=== PATIENT | male | born 1940 | race Caucasian/White ===

== ENCOUNTER 2020-04-25 06:55 | Outpatient (REF) | payer MEDICARE, OTHER, SELFPAY | END 2020-04-25 06:56 | disposition home or self-care (01) | LOC: HO.LAB 06:55 | PROVIDERS: PCP Internal Medicine Medical Oncology; Visit Provider Internal Medicine | DX: Z20.828 Contact with and (suspected) exposure to other viral communicable diseases (principal) | CPT/HCPCS: 87635 ==

== ENCOUNTER → 2020-05-09 08:11 | Outpatient (REF) | payer MEDICARE, OTHER, SELFPAY ==
--- NOTE | 2020-05-09 08:30 | CA_ITS ---
Transthoracic Echocardiogram Patient (Last, First, Middle): Efrain Pedro, Gender: Male Date of : 1940 Age: 80 Procedure Date: 05/09/2020 Procedure Type: Transthoracic Echocardiogram Location: OP Height: 193.04 cm Weight: 102.06 kg BSA: 2.33 m2 Heart Rate: bpm BP: 128 / 72 mmHg Burn Table Operator: SAMUEL Referring MD: Jhonathan Gama MD Symptoms: I25.10 CAD, I71.2 AAA, I10 HTN Study Quality: Fair ECG Rhythm: Sinus Conclusions: - The left ventricular systolic function is normal. The visually estimated ejection fraction is between 60-65%. There is no evidence of regional wall motion abnormalities. - No obvious valvular pathology seen on this study. - There is mild dilatation of the ascending aorta measuring 4.10 cm. Findings Left Ventricle Normal left ventricular cavity size. There is mildly increased left ventricular wall thickness. The left ventricular systolic function is normal. The visually estimated ejection fraction is between 60-65%. There is no evidence of regional wall motion abnormalities. E/E prime ratio is between 8 and 15 consistent with indeterminate filling pressures. Evidence suggests grade I (mild) diastolic dysfunction. Right Ventricle Normal right ventricular cavity size and systolic function. Atria The left atrium is normal in size. The right atrium is normal in size. Aortic Valve There is a normal trileaflet aortic valve. There is no aortic valve stenosis. There is no aortic valve regurgitation. Mitral Valve The mitral valve appears normal. There is trace mitral valve regurgitation. There is no mitral valve stenosis. Pulmonic Valve The pulmonic valve was not well visualized. Tricuspid Valve Normal tricuspid valve structure. There is trace tricuspid valve regurgitation. The pulmonary artery systolic pressure is normal. Great Vessels There is mild dilatation of the ascending aorta measuring 4.10 cm. Venous The inferior vena cava is normal in size and collapses greater than 50% with inspiration. Pericardium/Pleural There is no evidence of pericardial effusion. Prior Study Comparison Changes noted compared to prior study dated: 12/16/2016. Aorta not well visualized in prior study. Recommendations, Care & Conclusions No obvious valvular pathology seen on this study. Measurements 2D Linear Measurements IVSd: 1.12 0.6-0.9/0.6-1.0 cm LVIDd: 4.10 3.9-5.3/4.2-5.9 cm LVIDd Index: 1.76 2.4-3.2/2.2-3.1 cm/m2 LVIDs: 2.64 2.0-3.6 cm LVPWd: 1.06 0.7-1.1 cm Ao Root: 4.20 2.1-3.5 cm LA Diam: 3.30 2.7-3.8/3.0-4.0 cm LAIDs Index: 1.42 1.5-2.3 cm/m2 LV Mass: 185.90 67-162/88-224 g LV Mass Index: 79.79 43-95/49-115 g/m2 LVOT Diam: 2.50 3.0+(-)1.3 cm 2D Systolic Function EF 4C: 71.20 >55% EF 2C: 59.60 >55% EF BiP: 64.80 >55% Mitral Valve MV Pk E: 0.65 MV PK A: 0.97 MV Decel Time: 222.00 E/A: 0.70 E'Lateral: 6.19 E'Medial: 4.45 E/E' Med: 14.50 E/E' Lat: 10.40 PHT: 65.00 MVA PHT: 3.38 Decel [place]: 2.91 Aortic Valve AoV Pk Blu: 1.10 AoV Mn Blu: 0.77 AoV VTI: 0.27 AoV Pk Grad: 5.00 Aov Mn Grad: 3.00 PETTY Cont.VTI: 2.99 LVOT LVOT Pk Blu: 0.59 LVOT Mn Blu: 0.35 LVOT VTI: 0.16 LVOT Pk Grad: 1.00 LVOT Mn Grad: 1.00 LVOT Diam: 2.50 LVOT Area: 4.91 Diastolic Function MV Pk E: 0.65 MV Pk A: 0.97 E/A: 0.70 E'Medial: 4.45 E/E' Med: 14.50 E' Laterial: 6.19 E/E' Lat: 10.40 Tricuspid Valve TR Pk Blu: 1.71 TR Pk Grad: 12.00 RA Press: 3.00 RVSP: 15.00 Great Vessels Aorta Ao Root-2D: 4.20 2.0-3.7 cm Ao Asc: 4.10 2.1-3.4 cm Pulmonary Valve PV Pk Blu: 0.84 Peak PV Grad: 3.00 Updated in Other Vendor System with Status of Final Marv Barrera MD electronically signed on 05/10/2020 9:39:14 AM with status of Final
== END ==
LOC: HO.CARD 08:11
PROVIDERS: PCP Internal Medicine Medical Oncology; Visit Provider Internal Medicine Cardiovascular Disease
DX: I25.10 Atherosclerotic heart disease of native coronary artery without angina pectoris (principal); I71.2 Thoracic aortic aneurysm, without rupture; I10 Essential (primary) hypertension
CPT/HCPCS: 93306

== ENCOUNTER → 2020-07-22 08:41 | Outpatient (BNVA) | payer MEDICARE, SELFPAY | PROVIDERS: Visit Provider Orthopaedic Surgery | DX: M16.11 Unilateral primary osteoarthritis, right hip (principal) | CPT/HCPCS: 99212 ==

== ENCOUNTER → 2020-07-29 11:24 | Outpatient (BNVA) | payer MEDICARE, OTHER, SELFPAY | PROVIDERS: PCP Internal Medicine Medical Oncology; Visit Provider Hospitalist | DX: J44.9 Chronic obstructive pulmonary disease, unspecified (principal); R91.8 Other nonspecific abnormal finding of lung field; I71.9 Aortic aneurysm of unspecified site, without rupture | CPT/HCPCS: Q3014 ==

== ENCOUNTER 2020-09-14 14:57 | Emergency (ER) | payer MEDICARE, OTHER, SELFPAY ==
--- NOTE | ~2020-09-14 | XR_ITS ---
EXAMINATION: XR WRIST, LEFT CLINICAL INFORMATION: Left wrist pain COMPARISON: None TECHNIQUE: PA, lateral, and oblique views of the left wrist. FINDINGS: There is a comminuted impacted fracture of the left distal radius intra-articular with the radiocarpal joint. There is a minimally displaced ulnar styloid fracture. There is a fracture of the distal shaft of the fourth metacarpal bone which may not be acute. There is arthritis at the first RESIDENTIAL joint. There is soft tissue calcification in the fibrocartilage complex. There is diffuse soft tissue swelling about the wrist. XR/XR wrist LT min 3V IMPRESSION: Left distal radius and ulnar styloid fractures. Fracture of the distal shaft of the fifth metacarpal bone probably not acute. Findings were communicated to Dr. Greenwood by telephone on 09/14/2020 at 2:55 PM
--- NOTE | ~2020-09-14 | CT_ITS ---
EXAMINATION: CT CHEST WITHOUT CONTRAST CLINICAL INFORMATION: Other nonspecific abnormal finding lung field COMPARISON: Previous chest x-ray February 2020 and CTA of the chest October 2017 TECHNIQUE: Multidetector volumetric CT imaging of the chest was done. Axial MIP volume rendering provided. Sagittal and coronal reformatted images were obtained. This CT examination was performed using dose optimization techniques as appropriate, variously including the following: *Automated exposure control *Adjustment of mA and/or kV according to patient size (this includes techniques or standardized protocols for targeted exams where dose is matched to indication/reason for exam; i.e. extremities or head) *Use of iterative reconstruction technique DLP: 219 mGy-cm FINDINGS: LUNGS: There is evidence of emphysema. This is greatest at the lung bases. There is mild biapical pleural and parenchymal scarring. The lungs are otherwise clear. MEDIASTINUM: There is a right-sided aortic arch. There is dilatation of the ascending thoracic aorta measuring 4.5 cm this is increased from 4.2 cm on 2018 exam. There is dilatation of the aortic arch measuring 3.6 cm. The descending thoracic aorta is tortuous but normal in caliber measuring 3 cm. There is ectasia of the origin of the left brachiocephalic artery measuring 1.6 cm. The heart does not appear enlarged. There is moderate to severe coronary artery calcification. There is no pericardial effusion. There are no enlarged mediastinal or hilar lymph nodes. The thyroid gland is normal. PLEURA: There is no pleural effusion. No pleural mass or thickening. AXILLA: No lymphadenopathy. UPPER ABDOMEN: Unremarkable. OSSEOUS STRUCTURES: There are degenerative changes of the spine. CT/CT chest wo con IMPRESSION: Emphysema. This is greatest at the lung bases. Right-sided aortic arch. Dilated ascending thoracic aorta and aortic arch slightly increased from 2018 exam. Coronary artery calcification.
== END 2020-09-14 15:21 | disposition left against medical advice (07) ==
LOC: HO.ED 14:58
PROVIDERS: Emergency Provider Emergency Medicine; PCP Internal Medicine Medical Oncology; Visit Provider Hospitalist
DX: R91.8 Other nonspecific abnormal finding of lung field (principal); M25.532 Pain in left wrist; M79.602 Pain in left arm
CPT/HCPCS: 71250; 73110; 99282

== ENCOUNTER → 2020-09-15 09:29 | Outpatient (BNVA) | payer MEDICARE, OTHER, SELFPAY | PROVIDERS: PCP Internal Medicine Medical Oncology; Visit Provider Orthopaedic Surgery | DX: S52.502A Unspecified fracture of the lower end of left radius, initial encounter for closed fracture (principal) | CPT/HCPCS: 99212 ==

== ENCOUNTER 2020-09-22 07:30 | Outpatient (REF) | payer MEDICARE, OTHER, SELFPAY ==
--- NOTE | ~2020-09-22 | XR_ITS ---
EXAMINATION: XR WRIST, LEFT CLINICAL INFORMATION: Fracture of the left radius COMPARISON: 09/14/2020 TECHNIQUE: Two views of the left wrist. FINDINGS: Redemonstration of the impacted distal radial fracture with unchanged alignment from prior. Ulnar styloid fracture again noted, unchanged in alignment. Prominent soft tissue calcification adjacent to the ulnar styloid is unchanged. There are degenerative changes throughout the wrist, most prominent at the first carpometacarpal joint with narrowing, sclerosis, and osteophyte formation. Soft tissue swelling present at the wrist. XR/XR wrist LT 2V IMPRESSION: Unchanged alignment of the distal radial and ulnar fractures. Persistent soft tissue calcifications.
== END 2020-09-22 07:31 | disposition home or self-care (01) ==
LOC: HO.HOSX 07:30
PROVIDERS: Visit Provider Orthopaedic Surgery
DX: S52.502A Unspecified fracture of the lower end of left radius, initial encounter for closed fracture (principal); X58.XXXA Exposure to other specified factors, initial encounter; Y93.9 Activity, unspecified; Y92.9 Unspecified place or not applicable; Y99.9 Unspecified external cause status
CPT/HCPCS: 73100; 99212

== ENCOUNTER 2020-09-27 07:01 | Outpatient (REF) | payer MEDICARE, OTHER, SELFPAY ==
[2020-09-27 07:56] LABS: MANUAL DIFF FLAG NO
[2020-09-27 08:02] LABS: Basophils Percent Auto 0.5 % (0-2); Eosinophils Absolute Auto 0.2 X10*3/uL (0.0-0.4); Eosinophils Percent Auto 2.7 % (0-4); Hematocrit 40.5 % (42-52); Hemoglobin 13.3 g/dl (14.0-18.0); Imm Gran Abs Auto 0.03 X10*3/uL (0.00-0.03); Imm Gran Pct Auto 0.5 % (0.0-0.4); Lymphocytes Absolute Auto 1.4 X10*3/uL (1.2-4.9); Lymphocytes Percent Auto 22.6 % (20-40); Mean Corpuscular HGB Conc 32.8 g/dl (31.0-36.0); Mean Corpuscular Hemoglobin 32.6 pg (27.0-33.0); Mean Corpuscular Volume 99.3 fL (80-98); Mean Platelet Volume 9.3 fL (9.4-12.4); Monocytes Absolute Auto 0.7 X10*3/uL (0.1-1.2); Monocytes Percent Auto 11.8 % (2-11); Neutrophils Absolute Auto 3.9 X10*3/uL (2.0-8.3); Neutrophils Percent Auto 61.9 % (45-73); Platelet Count 244 X10*3/uL (160-400); Red Blood Count 4.08 X10*6/uL (4.60-5.80); Red Cell Distribution Width 12.7 % (11.0-16.0); White Blood Count 6.3 X10*3/uL (4.8-10.8)
[2020-09-27 08:37] LABS: Alanine Aminotransferase 17 U/L (0-40); Albumin Level 4.2 g/dL (3.5-5.0); Alkaline Phosphatase 81 U/L (39-117); Anion Gap 9 (12-20); Aspartate Amino Transferase 20 U/L (5-37); Bilirubin Total 1.3 mg/dL (0.0-1.0); Blood Urea Nitrogen 27 mg/dL (9-16); Carbon Dioxide 30 mmol/L (22-29); Chloride 106 mmol/L (96-108); Cholesterol 124 mg/dL; Estimated Glomerular Filt Rate 47; Glucose Fasting 108 mg/dL (60-99); HDL Cholesterol 36 mg/dL; LDL Cholesterol Calculated 65 mg/dl; Potassium 4.7 mmol/L (3.3-5.1); Sodium 140 mmol/L (135-145); Total Protein 6.6 g/dL (6.5-8.0); Triglycerides 116 mg/dL
[2020-09-27 08:47] LABS: Prostate Specific Antigen Scr 1.07 ng/mL (<0.05-4.0)
== END 2020-09-27 07:02 | disposition home or self-care (01) ==
LOC: HO.LAB 07:01
PROVIDERS: PCP Internal Medicine Medical Oncology; Visit Provider Internal Medicine Medical Oncology
DX: E78.5 Hyperlipidemia, unspecified (principal); I10 Essential (primary) hypertension; N40.0 Benign prostatic hyperplasia without lower urinary tract symptoms; Z12.5 Encounter for screening for malignant neoplasm of prostate
CPT/HCPCS: 36415; 80053; 80061; 84153; 85025

== ENCOUNTER → 2020-10-06 15:02 | Outpatient (BNVA) | payer MEDICARE, OTHER, SELFPAY | PROVIDERS: PCP Internal Medicine Medical Oncology; Visit Provider Internal Medicine Cardiovascular Disease | DX: I25.10 Atherosclerotic heart disease of native coronary artery without angina pectoris (principal); I71.9 Aortic aneurysm of unspecified site, without rupture | CPT/HCPCS: 99212 ==

== ENCOUNTER 2020-10-24 08:06 | Outpatient (REF) | payer MEDICARE, OTHER, SELFPAY ==
--- NOTE | ~2020-10-24 | XR_ITS ---
EXAMINATION: XR PELVIS CLINICAL INFORMATION: Pain COMPARISON: None TECHNIQUE: AP view of the pelvis. FINDINGS: Bone alignment is normal. No fracture or dislocation is seen. There is arthritis at both hip joints with joint space narrowing and osteophyte formation. There is increased sclerosis of the femoral heads. This may be due to bony overlap with the acetabulum however possible AVN is difficult to exclude. Bones of the pelvis are unremarkable. There are degenerative changes of the visualized lower lumbar spine. There is evidence of atherosclerotic disease. XR/XR pelvis 1-2V IMPRESSION: Bilateral hip arthritis.
== END 2020-10-24 08:07 | disposition home or self-care (01) ==
LOC: HO.HOSX 08:06
PROVIDERS: PCP Internal Medicine Medical Oncology; Visit Provider Orthopaedic Surgery
DX: M16.11 Unilateral primary osteoarthritis, right hip (principal)
CPT/HCPCS: 72170; 99212

== ENCOUNTER 2020-10-25 06:26 | Outpatient (REF) | payer MEDICARE, OTHER, SELFPAY ==
--- NOTE | ~2020-10-25 | FL_ITS ---
EXAMINATION: XR FLUOROSCOPY WITH IMAGES CLINICAL INFORMATION: M16.11 - Unilateral primary osteoarthritis, right hip COMPARISON: Pelvic radiograph 10/24/2020. TECHNIQUE: Fluoroscopy performed by Maricarmen Landon NP. Fluoroscopy time: 0.2 minutes DAP: 1.67 Gycm2 Images: 2 FINDINGS: There is a spinal needle overlying the superior lateral right hip joint. Osteoarthritic changes are again noted. FL/FL guidance in treatment room IMPRESSION: Fluoroscopy for pain management procedure.
== END 2020-10-25 06:27 | disposition home or self-care (01) ==
LOC: HO.RADIR 06:26
PROVIDERS: Visit Provider Anesthesiology
DX: M16.11 Unilateral primary osteoarthritis, right hip (principal)
CPT/HCPCS: 20610; J3300; Q9967

== ENCOUNTER 2020-10-27 07:55 | Outpatient (REF) | payer MEDICARE, OTHER, SELFPAY ==
--- NOTE | ~2020-10-27 | XR_ITS ---
EXAMINATION: XR WRIST, LEFT CLINICAL INFORMATION: Fracture. COMPARISON: Prior radiographs most recent 09/22/2020 TECHNIQUE: PA, lateral, and oblique views of the left wrist. FINDINGS: The mild to moderately displaced likely intra-articular fracture of the distal radius is redemonstrated with unchanged appearance and alignment. There may be some osseous bridging present, as before. An ulnar styloid fracture is again noted minimally displaced, unchanged. Rounded area of calcification noted distal to the ulnar styloid, unchanged. Advanced osteoarthritis of the 1st carpometacarpal joint, unchanged. XR/XR wrist LT min 3V IMPRESSION: No definite change compared with 09/22/2020. Alignment of the distal radius fracture is unchanged with perhaps some osseous bridging. Ulnar styloid fracture, unchanged. Osteoarthritis. Calcification distal to the ulnar styloid of uncertain etiology. Perhaps dystrophic or related to loose body.
== END 2020-10-27 07:56 | disposition home or self-care (01) ==
LOC: HO.HOSX 07:55
PROVIDERS: PCP Internal Medicine Medical Oncology; Visit Provider Orthopaedic Surgery
DX: S52.502D Unspecified fracture of the lower end of left radius, subsequent encounter for closed fracture with routine healing (principal); M16.11 Unilateral primary osteoarthritis, right hip
CPT/HCPCS: 73110; 99212

== ENCOUNTER → 2020-10-28 10:17 | Outpatient (BNVA) | payer MEDICARE, OTHER, SELFPAY | PROVIDERS: PCP Internal Medicine Medical Oncology; Visit Provider Hospitalist | DX: J44.9 Chronic obstructive pulmonary disease, unspecified (principal); G47.33 Obstructive sleep apnea (adult) (pediatric); Z87.891 Personal history of nicotine dependence | CPT/HCPCS: 90471; 90670; 99212 ==

== ENCOUNTER 2020-11-14 07:52 | Outpatient (REF) | payer MEDICARE, OTHER, SELFPAY ==
--- NOTE | ~2020-11-14 | XR_ITS ---
EXAMINATION: THE X-RAY CLINICAL INFORMATION: Pain COMPARISON: None TECHNIQUE: Standing AP view of both knees and lateral and sunrise view of the right knee FINDINGS: Right: Bone alignment is normal. No fracture or dislocation is seen. There is mild to moderate arthritis at the medial femoral tibial and patellofemoral joints. There is a small joint effusion. There is evidence of severe atherosclerotic disease. There is question of dilatation of the popliteal artery. Follow-up ultrasound to evaluate for popliteal artery aneurysm recommended. Standing AP view of the left knee demonstrates surgical clips and atherosclerotic disease. XR/XR knee standing BI IMPRESSION: Mild to moderate right knee arthritis. Severe atherosclerotic disease. Question right popliteal artery aneurysm. Follow-up arterial ultrasound recommended.
--- NOTE | ~2020-11-14 | XR_ITS ---
EXAMINATION: THE X-RAY CLINICAL INFORMATION: Pain COMPARISON: None TECHNIQUE: Standing AP view of both knees and lateral and sunrise view of the right knee FINDINGS: Right: Bone alignment is normal. No fracture or dislocation is seen. There is mild to moderate arthritis at the medial femoral tibial and patellofemoral joints. There is a small joint effusion. There is evidence of severe atherosclerotic disease. There is question of dilatation of the popliteal artery. Follow-up ultrasound to evaluate for popliteal artery aneurysm recommended. Standing AP view of the left knee demonstrates surgical clips and atherosclerotic disease. XR/XR knee RT 2V IMPRESSION: Mild to moderate right knee arthritis. Severe atherosclerotic disease. Question right popliteal artery aneurysm. Follow-up arterial ultrasound recommended.
== END 2020-11-14 07:53 | disposition home or self-care (01) ==
LOC: HO.HOSX 07:52
PROVIDERS: Visit Provider Orthopaedic Surgery
DX: M17.11 Unilateral primary osteoarthritis, right knee (principal); M16.11 Unilateral primary osteoarthritis, right hip
CPT/HCPCS: 20610; 73560; 73565; 99212; J1100

== ENCOUNTER → 2021-01-09 07:53 | Outpatient (BNVA) | payer MEDICARE, OTHER, SELFPAY | PROVIDERS: PCP Internal Medicine Medical Oncology; Visit Provider Orthopaedic Surgery | DX: M19.039 Primary osteoarthritis, unspecified wrist (principal); M16.11 Unilateral primary osteoarthritis, right hip | CPT/HCPCS: 99212 ==

== ENCOUNTER 2021-03-28 11:31 | Outpatient (REF) | payer MEDICARE, OTHER, SELFPAY ==
[2021-03-28 13:23] LABS: MANUAL DIFF FLAG NO
[2021-03-28 13:51] LABS: Basophils Percent Auto 0.4 % (0-2); Eosinophils Absolute Auto 0.2 X10*3/uL (0.0-0.4); Eosinophils Percent Auto 2.7 % (0-4); Hematocrit 42.4 % (42-52); Hemoglobin 14.5 g/dl (14.0-18.0); Imm Gran Abs Auto 0.02 X10*3/uL (0.00-0.03); Imm Gran Pct Auto 0.3 % (0.0-0.4); Lymphocytes Absolute Auto 1.7 X10*3/uL (1.2-4.9); Lymphocytes Percent Auto 25.9 % (20-40); Mean Corpuscular HGB Conc 34.2 g/dl (31.0-36.0); Mean Corpuscular Hemoglobin 32.3 pg (27.0-33.0); Mean Corpuscular Volume 94.4 fL (80-98); Mean Platelet Volume 8.9 fL (9.4-12.4); Monocytes Absolute Auto 0.8 X10*3/uL (0.1-1.2); Monocytes Percent Auto 11.5 % (2-11); Neutrophils Percent Auto 59.2 % (45-73); Platelet Count 239 X10*3/uL (160-400); Red Blood Count 4.49 X10*6/uL (4.60-5.80); Red Cell Distribution Width 12.7 % (11.0-16.0); White Blood Count 6.7 X10*3/uL (4.8-10.8)
[2021-03-28 13:59] LABS: Alanine Aminotransferase 20 U/L (0-40); Albumin Level 4.3 g/dL (3.5-5.0); Alkaline Phosphatase 79 U/L (39-117); Anion Gap 14 (12-20); Aspartate Amino Transferase 24 U/L (5-37); Bilirubin Total 1.9 mg/dL (0.0-1.0); Blood Urea Nitrogen 20 mg/dL (9-16); Calcium 9.8 mg/dL (8.4-10.2); Carbon Dioxide 25 mmol/L (22-29); Chloride 107 mmol/L (96-108); Cholesterol 143 mg/dL; Estimated Glomerular Filt Rate 46; Glucose Fasting 92 mg/dL (60-99); HDL Cholesterol 37 mg/dL; LDL Cholesterol Calculated 70 mg/dl; Potassium 4.9 mmol/L (3.3-5.1); Sodium 141 mmol/L (135-145); Total Protein 6.8 g/dL (6.5-8.0); Triglycerides 181 mg/dL
[2021-03-28 14:21] LABS: Prostate Specific Antigen 1.17 ng/mL (<0.05-4.0)
[2021-03-28 17:50] LABS: Prothrombin Time 11.8 SEC (9.9-13.0)
== END 2021-03-28 11:32 | disposition home or self-care (01) ==
LOC: HO.LAB 11:31
PROVIDERS: PCP Internal Medicine Medical Oncology; Visit Provider Internal Medicine Medical Oncology
DX: E78.5 Hyperlipidemia, unspecified (principal); E66.3 Overweight; N40.0 Benign prostatic hyperplasia without lower urinary tract symptoms; Z12.5 Encounter for screening for malignant neoplasm of prostate
CPT/HCPCS: 36415; 80053; 80061; 84153; 85025; 85610

== ENCOUNTER → 2021-04-06 14:56 | Outpatient (BNVA) | payer MEDICARE, OTHER, SELFPAY | PROVIDERS: PCP Internal Medicine Medical Oncology; Visit Provider Internal Medicine Cardiovascular Disease | DX: I25.10 Atherosclerotic heart disease of native coronary artery without angina pectoris (principal); I71.9 Aortic aneurysm of unspecified site, without rupture | CPT/HCPCS: 93005; 99212 ==

== ENCOUNTER 2021-06-26 09:49 | Outpatient (REF) | payer MEDICARE, OTHER, SELFPAY ==
[2021-06-26 10:45] LABS: Estimated Average Glucose 100 mg/dL; Hemoglobin A1c % 5.1 %
[2021-06-26 11:10] LABS: Anion Gap 13 (12-20); Blood Urea Nitrogen 22 mg/dL (9-16); Calcium 9.8 mg/dL (8.4-10.2); Carbon Dioxide 27 mmol/L (22-29); Chloride 107 mmol/L (96-108); Estimated Glomerular Filt Rate 53; Glucose Fasting 94 mg/dL (60-99); Potassium 4.7 mmol/L (3.3-5.1); Rheumatoid Factor < 15.0 IU/mL (<15.0); Sodium 142 mmol/L (135-145)
[2021-06-26 11:30] LABS: Syphilis Screen Nonreactive (Nonreactive)
[2021-06-26 11:33] LABS: Erythrocyte Sedimentation Rate 7 MM/HR (0-15)
[2021-06-26 11:34] LABS: Vitamin B12 1259 pg/mL (200-900)
[2021-06-26 12:35] LABS: Folate > 20.0 ng/mL (> or = 4.0)
[2021-06-28 05:29] LABS: Lyme Abs Screen <0.90 index
[2021-06-29 22:03] LABS: IgA 307 mg/dL (70-320); IgG 1009 mg/dL (600-1540); IgM 123 mg/dL (50-300)
== END 2021-06-26 09:50 | disposition home or self-care (01) ==
LOC: HO.LAB 09:49
PROVIDERS: Absent Provider Psychiatry & Neurology Neurology; PCP Internal Medicine Medical Oncology; Visit Provider Internal Medicine Medical Oncology
DX: E78.5 Hyperlipidemia, unspecified (principal); E66.3 Overweight
CPT/HCPCS: 36415; 80048; 82607; 82746; 82784; 83036; 85652; 86334; 86431; 86617; 86618; 86780

== ENCOUNTER 2021-07-03 09:07 | Outpatient (REF) | payer MEDICARE, OTHER, SELFPAY | END 2021-07-03 09:08 | disposition home or self-care (01) | LOC: HO.LAB 09:07 | PROVIDERS: PCP Internal Medicine Medical Oncology; Visit Provider Psychiatry & Neurology Neurology | DX: Z13.89 Encounter for screening for other disorder (principal) ==

== ENCOUNTER → 2021-10-06 07:46 | Outpatient (REF) | payer MEDICARE, OTHER, SELFPAY ==
--- NOTE | 2021-10-06 08:30 | CA_ITS ---
Transthoracic Echocardiogram Patient (Last, First, Middle): Efrain Pedro, Gender: Male Date of : 1940 Age: 81 Procedure Date: 10/06/2021 Procedure Type: Transthoracic Echocardiogram Location: OP Height: 193.04 cm Weight: 99.79 kg BSA: 2.31 m2 Heart Rate: bpm BP: 110 / 60 mmHg Decision Science Analyst: UZIEL Referring MD: Tony Greenwood MD Symptoms: I71.2 AAA Study Quality: Fair Conclusions: - Normal left ventricular size, thickness, systolic function, and wall motion. The visually estimated ejection fraction is between 55-60%. - Normal right ventricular cavity size and systolic function. - There is mild dilatation of the ascending aorta measuring 4.20 cm. Findings Left Ventricle Normal left ventricular size, thickness, systolic function, and wall motion. The visually estimated ejection fraction is between 55-60%. Abnormal diastolic function is noted. Spectral Doppler is indicative of an impaired relaxation filling pattern. E/E prime ratio is between 8 and 15 consistent with indeterminate filling pressures. Right Ventricle Normal right ventricular cavity size and systolic function. Atria Both atria are normal in size. Aortic Valve The aortic valve was not well visualized. There is mild calcification of the aortic valve. There is mild thickening of the aortic valve. There is no aortic valve stenosis. There is no aortic valve regurgitation. Mitral Valve The mitral valve appears normal. There is no mitral valve regurgitation. There is no mitral valve stenosis. Pulmonic Valve The pulmonic valve is likely normal. Tricuspid Valve Normal tricuspid valve structure and function. There is trace tricuspid valve regurgitation. Normal right atrial pressure. There is no evidence of pulmonary hypertension. Great Vessels The pulmonary artery was not well visualized. There is mild dilatation of the ascending aorta measuring 4.20 cm. Venous The inferior vena cava is normal in size and collapses greater than 50% with inspiration. Pericardium/Pleural There is no evidence of pericardial effusion. Prior Study Comparison No significant change compared to prior study dated: 05/09/2020. Measurements 2D Linear Measurements IVSd: 1.19 0.6-0.9/0.6-1.0 cm LVIDd: 4.47 3.9-5.3/4.2-5.9 cm LVIDd Index: 1.94 2.4-3.2/2.2-3.1 cm/m2 LVIDs: 3.59 2.0-3.6 cm LVPWd: 1.02 0.7-1.1 cm LA Diam: 2.90 2.7-3.8/3.0-4.0 cm LAIDs Index: 1.26 1.5-2.3 cm/m2 LV Mass: 217.11 67-162/88-224 g LV Mass Index: 93.99 43-95/49-115 g/m2 LVOT Diam: 2.50 3.0+(-)1.3 cm 2D Systolic Function EF 4C: 59.00 >55% EF 2C: 66.40 >55% EF BiP: 64.80 >55% Mitral Valve MV Pk E: 0.56 MV PK A: 1.05 MV Decel Time: 227.00 E/A: 0.50 E'Lateral: 6.09 E'Medial: 4.24 E/E' Med: 13.10 E/E' Lat: 9.10 PHT: 67.00 MVA PHT: 3.28 Decel [place]: 2.45 Aortic Valve AoV Pk Blu: 1.06 AoV Mn Blu: 0.74 AoV VTI: 0.23 AoV Pk Grad: 4.00 Aov Mn Grad: 2.00 PETTY Cont.VTI: 3.82 LVOT LVOT Pk Blu: 0.82 LVOT Mn Blu: 0.63 LVOT VTI: 0.18 LVOT Pk Grad: 3.00 LVOT Mn Grad: 2.00 LVOT Diam: 2.50 LVOT Area: 4.91 Diastolic Function MV Pk E: 0.56 MV Pk A: 1.05 E/A: 0.50 E'Medial: 4.24 E/E' Med: 13.10 E' Laterial: 6.09 E/E' Lat: 9.10 Right Ventricle TAPSE (mm): 2.30 TVS' Blu: 11.50 Tricuspid Valve TR Pk Blu: 1.47 TR Pk Grad: 9.00 RA Press: 3.00 RVSP: 12.00 Great Vessels Aorta Sinus of Valsalva: 4.41 2.0-3.[address] [place]: 3.79 1.7-3.4 cm Ao Asc: 4.20 2.1-3.4 cm Updated in Other Vendor System with Status of Final Shar Castellanos MD electronically signed on 10/09/2021 9:30:16 AM with status of Final
== END ==
LOC: HO.CARD 07:46
PROVIDERS: PCP Internal Medicine Medical Oncology; Visit Provider Internal Medicine Medical Oncology
DX: I71.2 Thoracic aortic aneurysm, without rupture (principal)
CPT/HCPCS: 93306

== ENCOUNTER 2021-10-09 08:31 | Outpatient (REF) | payer MEDICARE, OTHER, SELFPAY ==
--- NOTE | ~2021-10-09 | XR_ITS ---
EXAMINATION: XR PELVIS CLINICAL INFORMATION: Pain. COMPARISON: Radiograph of the pelvis dated from 10/24/2020. TECHNIQUE: AP view of the pelvis. FINDINGS: No acute fractures or malalignment. Moderate to severe bilateral osteoarthritis, stable when compared to 10/24/2020. Redemonstration of increased sclerosis of both femoral heads, left greater than right, also stable since 2020. Partially imaged degenerative changes in the lower lumbar spine. Sacroiliac joints are symmetric. Pubic symphysis is maintained. There are scattered vascular calcifications. XR/XR pelvis 1-2V IMPRESSION: No acute fractures or malalignment. Moderate to severe bilateral osteoarthritis of the hips. Again noted sclerosis of the femoral heads which could be seen with avascular necrosis.
== END 2021-10-09 08:32 | disposition home or self-care (01) ==
LOC: HO.HOSX 08:31
PROVIDERS: Visit Provider Orthopaedic Surgery
DX: M16.0 Bilateral primary osteoarthritis of hip (principal); I71.9 Aortic aneurysm of unspecified site, without rupture
CPT/HCPCS: 72170; 99212

== ENCOUNTER → 2021-10-27 09:58 | Outpatient (BNVA) | payer MEDICARE, OTHER, SELFPAY | PROVIDERS: PCP Internal Medicine Medical Oncology; Visit Provider Internal Medicine Cardiovascular Disease | DX: I71.4 Abdominal aortic aneurysm, without rupture (principal); I25.10 Atherosclerotic heart disease of native coronary artery without angina pectoris; Z79.899 Other long term (current) drug therapy | CPT/HCPCS: 99212 ==

== ENCOUNTER → 2021-11-10 09:09 | Outpatient (BNVA) | payer MEDICARE, OTHER, SELFPAY | PROVIDERS: PCP Internal Medicine Medical Oncology; Visit Provider Hospitalist | DX: J43.2 Centrilobular emphysema (principal); G47.33 Obstructive sleep apnea (adult) (pediatric); Z79.899 Other long term (current) drug therapy; Z99.89 Dependence on other enabling machines and devices | CPT/HCPCS: 90732; 94618; 94640; 99212 ==

== ENCOUNTER → 2021-11-13 15:09 | Outpatient (BNVA) | payer MEDICARE, OTHER, SELFPAY | PROVIDERS: PCP Internal Medicine Medical Oncology; Visit Provider Hospitalist | DX: Z23 Encounter for immunization (principal); J44.1 Chronic obstructive pulmonary disease with (acute) exacerbation; G47.33 Obstructive sleep apnea (adult) (pediatric); Z99.89 Dependence on other enabling machines and devices | CPT/HCPCS: 90471; 90732; 99212 ==

== ENCOUNTER → 2021-12-08 09:10 | Outpatient (BNVA) | payer MEDICARE, OTHER, SELFPAY | PROVIDERS: PCP Internal Medicine Medical Oncology; Visit Provider Hospitalist | DX: J44.1 Chronic obstructive pulmonary disease with (acute) exacerbation (principal); G47.33 Obstructive sleep apnea (adult) (pediatric); R91.8 Other nonspecific abnormal finding of lung field; Z99.89 Dependence on other enabling machines and devices | CPT/HCPCS: 99212 ==

== ENCOUNTER 2021-12-29 08:21 | Outpatient (REF) | payer MEDICARE, OTHER, SELFPAY ==
--- NOTE | ~2021-12-29 | CT_ITS ---
EXAMINATION: CT CHEST WITHOUT CONTRAST CLINICAL INFORMATION: Pulmonary nodules COMPARISON: Previous chest CT most recent September 2020 TECHNIQUE: Multidetector volumetric CT imaging of the chest was done. Axial MIP volume rendering provided. Sagittal and coronal reformatted images were obtained. This CT examination was performed using dose optimization techniques as appropriate, variously including the following: *Automated exposure control *Adjustment of mA and/or kV according to patient size (this includes techniques or standardized protocols for targeted exams where dose is matched to indication/reason for exam; i.e. extremities or head) *Use of iterative reconstruction technique DLP: 227 mGy-cm FINDINGS: LUNGS: There is evidence of severe emphysema. There is mild biapical pleural and parenchymal scarring. No pulmonary nodule is seen. MEDIASTINUM: There is a right-sided aortic arch. The ascending thoracic aorta is dilated measuring 4.7 cm. The aortic arch is dilated measuring 4.4 cm. The descending thoracic aorta is slightly dilated measuring 3.3 cm and tortuous. This is increased from previous exam. The heart size is normal. There is coronary artery calcification. There are small mediastinal lymph nodes. No enlarged lymph nodes are seen. PLEURA: There is no pleural effusion. No pleural mass or thickening. AXILLA: No lymphadenopathy. UPPER ABDOMEN: Unremarkable. OSSEOUS STRUCTURES: There are degenerative changes of the spine. CT/CT chest wo con IMPRESSION: Severe emphysema. Mild biapical pleural and parenchymal scarring. No pulmonary nodule seen. Right-sided aortic arch and dilated thoracic aorta increased from previous exams most recent 2020. Coronary artery calcification. Fleischner guidelines were followed.
== END 2021-12-29 08:22 | disposition home or self-care (01) ==
LOC: HO.CT 08:21
PROVIDERS: PCP Internal Medicine Medical Oncology; Visit Provider Hospitalist
DX: R91.8 Other nonspecific abnormal finding of lung field (principal)
CPT/HCPCS: 71250

== ENCOUNTER 2022-01-12 11:03 | Outpatient (REF) | payer MEDICARE, OTHER, SELFPAY ==
[2022-01-12 13:47] LABS: MANUAL DIFF FLAG NO
[2022-01-12 13:49] LABS: Basophils Percent Auto 0.3 % (0-2); Eosinophils Absolute Auto 0.2 X10*3/uL (0.0-0.4); Eosinophils Percent Auto 3.9 % (0-4); Hemoglobin 12.9 g/dl (14.0-18.0); Imm Gran Abs Auto 0.03 X10*3/uL (0.00-0.03); Imm Gran Pct Auto 0.5 % (0.0-0.4); Lymphocytes Absolute Auto 1.3 X10*3/uL (1.2-4.9); Lymphocytes Percent Auto 21.2 % (20-40); Mean Corpuscular HGB Conc 33.9 g/dl (31.0-36.0); Mean Corpuscular Hemoglobin 33.1 pg (27.0-33.0); Mean Corpuscular Volume 97.4 fL (80.0-98.0); Mean Platelet Volume 9.3 fL (9.4-12.4); Monocytes Absolute Auto 0.7 X10*3/uL (0.1-1.2); Neutrophils Absolute Auto 3.7 x10*3/uL (2.0-8.3); Neutrophils Percent Auto 63.1 % (45-73); Platelet Count 220 X10*3/uL (160-400); White Blood Count 5.9 X10*3/uL (4.8-10.8)
[2022-01-12 13:55] LABS: Prothrombin Time 11.9 SEC (10.0-13.1)
[2022-01-12 14:08] LABS: Alanine Aminotransferase 20 U/L (0-40); Albumin Level 3.9 g/dL (3.5-5.0); Alkaline Phosphatase 82 U/L (39-117); Anion Gap 13 (12-20); Aspartate Amino Transferase 20 U/L (5-37); Bilirubin Total 0.8 mg/dL (0.0-1.0); Blood Urea Nitrogen 36 mg/dL (9-16); Calcium 9.1 mg/dL (8.4-10.2); Carbon Dioxide 24 mmol/L (22-29); Chloride 110 mmol/L (96-108); Cholesterol 108 mg/dL; Estimated Glomerular Filt Rate 46; Glucose Fasting 101 mg/dL (60-99); HDL Cholesterol 28 mg/dL; LDL Cholesterol Calculated 30 mg/dl; Potassium 4.5 mmol/L (3.3-5.1); Sodium 142 mmol/L (135-145); Total Protein 6.4 g/dL (6.5-8.0); Triglycerides 253 mg/dL
== END 2022-01-12 11:04 | disposition home or self-care (01) ==
LOC: HO.HMGCLDS 11:03
PROVIDERS: Visit Provider Internal Medicine Medical Oncology
DX: Z00.00 Encounter for general adult medical examination without abnormal findings (principal); E78.5 Hyperlipidemia, unspecified; I10 Essential (primary) hypertension
CPT/HCPCS: 36415; 80053; 80061; 85025; 85610

== ENCOUNTER → 2022-06-01 09:31 | Outpatient (BNVA) | payer MEDICARE, OTHER, SELFPAY | PROVIDERS: PCP Internal Medicine Medical Oncology; Visit Provider Hospitalist | DX: J44.1 Chronic obstructive pulmonary disease with (acute) exacerbation (principal); R91.8 Other nonspecific abnormal finding of lung field; G47.33 Obstructive sleep apnea (adult) (pediatric); Z99.89 Dependence on other enabling machines and devices | CPT/HCPCS: 99212 ==

== ENCOUNTER 2022-08-10 12:47 | Outpatient (REF) | payer MEDICARE, OTHER, SELFPAY ==
[2022-08-10 12:57] LABS: MANUAL DIFF FLAG NO
[2022-08-10 13:19] LABS: Basophils Absolute Auto 0.1 X10*3/uL (0.0-0.2); Eosinophils Absolute Auto 0.3 X10*3/uL (0.0-0.4); Eosinophils Percent Auto 3.5 % (0-4); Hematocrit 41.3 % (42.0-52.0); Hemoglobin 13.8 g/dl (14.0-18.0); Imm Gran Abs Auto 0.03 X10*3/uL (0.00-0.03); Imm Gran Pct Auto 0.4 % (0.0-0.4); Lymphocytes Absolute Auto 2.1 X10*3/uL (1.2-4.9); Lymphocytes Percent Auto 29.2 % (20-40); Mean Corpuscular HGB Conc 33.4 g/dl (31.0-36.0); Mean Corpuscular Volume 98.8 fL (80.0-98.0); Mean Platelet Volume 8.9 fL (9.4-12.4); Monocytes Absolute Auto 0.8 X10*3/uL (0.1-1.2); Monocytes Percent Auto 11.7 % (2-11); Neutrophils Absolute Auto 3.9 x10*3/uL (2.0-8.3); Neutrophils Percent Auto 54.2 % (45-73); Platelet Count 236 X10*3/uL (160-400); Red Blood Count 4.18 X10*6/uL (4.60-5.80); Red Cell Distribution Width 12.9 % (11.0-16.0); White Blood Count 7.2 X10*3/uL (4.8-10.8)
[2022-08-10 14:49] LABS: Alanine Aminotransferase 20 U/L (0-40); Albumin Level 4.1 g/dL (3.5-5.0); Alkaline Phosphatase 86 U/L (39-117); Anion Gap 11 (12-20); Aspartate Amino Transferase 22 U/L (5-37); Blood Urea Nitrogen 18 mg/dL (9-16); Calcium 9.3 mg/dL (8.4-10.2); Carbon Dioxide 29 mmol/L (22-29); Chloride 110 mmol/L (96-108); Cholesterol 110 mg/dL; Estimated Glomerular Filt Rate 59; Glucose Fasting 91 mg/dL (60-99); HDL Cholesterol 35 mg/dL; LDL Cholesterol Calculated 51 mg/dl; Potassium 4.7 mmol/L (3.3-5.1); Sodium 145 mmol/L (135-145); Total Protein 6.7 g/dL (6.5-8.0); Triglycerides 123 mg/dL
[2022-08-10 14:51] LABS: Prostate Specific Antigen 1.61 ng/mL (<0.05-4.0)
== END 2022-08-10 12:48 | disposition home or self-care (01) ==
LOC: HO.LAB 12:47
PROVIDERS: PCP Internal Medicine Medical Oncology; Visit Provider Internal Medicine Medical Oncology
DX: Z12.5 Encounter for screening for malignant neoplasm of prostate (principal); E78.5 Hyperlipidemia, unspecified; I10 Essential (primary) hypertension; I73.9 Peripheral vascular disease, unspecified; N40.0 Benign prostatic hyperplasia without lower urinary tract symptoms; K21.9 Gastro-esophageal reflux disease without esophagitis
CPT/HCPCS: 36415; 80053; 80061; 84153; 85025

== ENCOUNTER 2022-09-28 12:09 | Outpatient (REF) | payer MEDICARE, OTHER, SELFPAY ==
--- NOTE | ~2022-09-28 | XR_ITS ---
EXAMINATION: XR HIP, LEFT CLINICAL INFORMATION: Pain COMPARISON: 10/01/2021 TECHNIQUE: Two views of the left hip. XR/XR hip LT w PEL1V FINDINGS/IMPRESSION: No acute fracture or dislocation. Redemonstration of moderate to severe degenerative changes of the left hip joint with joint space narrowing and osteophytosis. Again seen is increased sclerosis of the left greater than right femoral heads with focal area of lucency which may reflect avascular necrosis. Subchondral collapse cannot be excluded.
--- NOTE | ~2022-09-28 | XR_ITS ---
EXAMINATION: XR WRIST, LEFT CLINICAL INFORMATION: Wrist pain COMPARISON: 10/27/2020 TECHNIQUE: PA, lateral, and oblique views of the left wrist. FINDINGS: Chronic ulnar styloid fracture. Severe degenerative changes of the radiocarpal joint likely secondary to trauma. Advanced osteoarthritis of the first CMC joint. XR/XR wrist LT min 3V IMPRESSION: Severe degenerative changes of the radiocarpal joint likely secondary to trauma. Advanced osteoarthritis of the first CMC joint.
== END 2022-09-28 12:10 | disposition home or self-care (01) ==
LOC: HO.HOSX 12:09
PROVIDERS: PCP Internal Medicine Medical Oncology; Visit Provider Orthopaedic Surgery
DX: S76.012A Strain of muscle, fascia and tendon of left hip, initial encounter (principal); M16.0 Bilateral primary osteoarthritis of hip; M19.132 Post-traumatic osteoarthritis, left wrist
CPT/HCPCS: 73110; 73502; 99212

== ENCOUNTER → 2022-10-01 08:31 | Outpatient (REF) | payer MEDICARE, OTHER, SELFPAY ==
--- NOTE | 2022-10-01 08:34 | CA_ITS ---
Transthoracic Echocardiogram Patient (Last, First, Middle): Efrain Pedro W Gender: Male Date of : 1940 Age: 82 Procedure Date: 10/01/2022 Procedure Type: Transthoracic Echocardiogram Location: OP Height: 193.04 cm Weight: 102.06 kg BSA: 2.33 m2 Heart Rate: 73 bpm Heel Attacher Wood: MEHUL Referring MD: Jhonathan Gama MD Commercial Loan Processor: Jhonathan Gama MD Symptoms: I71.9 - Aortic aneurysm of unspecified site, without rupture Study Quality: Adequate ECG Rhythm: Sinus Conclusions: - 1. Normal LV systolic function with impaired relaxation filling pattern with underlying regional wall motion abnormality suggestive coronary artery disease 2. Normal cardiac valvular Doppler 3. Moderately dilated ascending aorta at 4.5 cm 4. No gross pericardial effusion Findings Left Ventricle Normal left ventricular size, thickness, and systolic function. The visually estimated ejection fraction is between 55-60%. Spectral Doppler is indicative of an impaired relaxation filling pattern. E/E prime ratio is between 8 and 15 consistent with indeterminate filling pressures. Peak GLS is -14.8%, which is reduced. Wall Motion Rest Echo Findings The basal inferior, mid inferior, basal inferoseptal, and basal inferolateral segments are hypokinetic. All other scored wall segments showed normal motion. Right Ventricle Normal right ventricular cavity size and systolic function. Atria The left atrium is normal in size. There is no evidence of interatrial shunt. The right atrium is normal in size. Aortic Valve There is mild calcification of the aortic valve. There is no aortic valve stenosis. There is no aortic valve regurgitation. Mitral Valve There is mild anterior and posterior mitral leaflet thickening. There is trace mitral valve regurgitation. There is no mitral valve stenosis. Pulmonic Valve The pulmonic valve is likely normal. There is trace pulmonic valve regurgitation. Tricuspid Valve Likely normal tricuspid valve structure and function. Tricuspid regurgitation envelope is inadequate for calculation of right ventricular systolic pressure. Normal right atrial pressure. Great Vessels The pulmonary artery was not well visualized. There is moderate dilatation of the ascending aorta measuring 4.50 cm. Venous The inferior vena cava is normal in size and collapses greater than 50% with inspiration. Pericardium/Pleural There is no evidence of pericardial effusion. Prior Study Comparison Changes noted compared to prior study dated: 10/06/2021. Ascending aorta is further enlarge in size to 4.5 cm Measurements 2D Linear Measurements IVSd: 1.03 0.6-0.9/0.6-1.0 cm LVIDd: 4.32 3.9-5.3/4.2-5.9 cm LVIDd Index: 1.85 2.4-3.2/2.2-3.1 cm/m2 LVIDs: 3.04 2.0-3.6 cm LVPWd: 0.77 0.7-1.1 cm LA Diam: 3.10 2.7-3.8/3.0-4.0 cm LAIDs Index: 1.33 1.5-2.3 cm/m2 LV Mass: 154.43 67-162/88-224 g LV Mass Index: 66.28 43-95/49-115 g/m2 LVOT Diam: 2.60 3.0+(-)1.3 cm 2D Systolic Function EF 4C: 57.80 >55% EF 2C: 64.70 >55% EF BiP: 60.90 >55% Mitral Valve MV Pk E: 0.62 MV PK A: 0.88 MV Decel Time: 242.00 E/A: 0.70 E'Lateral: 3.92 E'Medial: 4.57 E/E' Med: 13.60 E/E' Lat: 15.80 PHT: 71.00 MVA PHT: 3.10 Decel [place]: 2.56 Aortic Valve AoV Pk Blu: 1.09 AoV Pk Grad: 5.00 PETTY: 4.07 LVOT LVOT Pk Blu: 0.84 LVOT Mn Blu: 0.58 LVOT VTI: 0.19 LVOT Pk Grad: 3.00 LVOT Mn Grad: 2.00 LVOT Diam: 2.60 LVOT Area: 5.31 Diastolic Function MV Pk E: 0.62 MV Pk A: 0.88 E/A: 0.70 E'Medial: 4.57 E/E' Med: 13.60 E' Laterial: 3.92 E/E' Lat: 15.80 Right Ventricle TAPSE (mm): 22.30 TVS' Blu: 12.50 Tricuspid Valve RA Press: 3.00 Great Vessels Aorta Sinus of Valsalva: 4.50 2.0-3.5 cm Ao Asc: 4.50 2.1-3.4 cm Pulmonary Veins Pulm Vein S/D 2.50 Pulmonary Valve PV Pk Blu: 0.88 Peak PV Grad: 3.00 Updated in Other Vendor System with Status of Final Jhonathan Gama MD electronically signed on 10/01/2022 12:36:39 PM with status of Final
== END ==
LOC: HO.CARD 08:31
PROVIDERS: PCP Internal Medicine Medical Oncology; Visit Provider Internal Medicine Cardiovascular Disease
DX: I71.9 Aortic aneurysm of unspecified site, without rupture (principal)
CPT/HCPCS: 93306; 93356

== ENCOUNTER → 2022-11-09 09:09 | Outpatient (BNVA) | payer MEDICARE, OTHER, SELFPAY | PROVIDERS: PCP Internal Medicine Medical Oncology; Visit Provider Orthopaedic Surgery | DX: M16.0 Bilateral primary osteoarthritis of hip (principal); M19.132 Post-traumatic osteoarthritis, left wrist; S76.012D Strain of muscle, fascia and tendon of left hip, subsequent encounter | CPT/HCPCS: 99212 ==

== ENCOUNTER → 2022-11-19 14:19 | Outpatient (BNVA) | payer MEDICARE, OTHER, SELFPAY | PROVIDERS: PCP Internal Medicine Medical Oncology; Visit Provider Internal Medicine Cardiovascular Disease | DX: Z01.810 Encounter for preprocedural cardiovascular examination (principal); I25.10 Atherosclerotic heart disease of native coronary artery without angina pectoris; I71.9 Aortic aneurysm of unspecified site, without rupture | CPT/HCPCS: 93005; 99212 ==

== ENCOUNTER → 2022-12-04 14:33 | Outpatient (BNVA) | payer MEDICARE, OTHER, SELFPAY | PROVIDERS: PCP Internal Medicine Medical Oncology; Visit Provider Orthopaedic Surgery ==

== ENCOUNTER → 2022-12-05 10:43 | Outpatient (BNVA) | payer MEDICARE, OTHER, SELFPAY | PROVIDERS: PCP Internal Medicine Medical Oncology; Visit Provider Nurse Practitioner Family | DX: Z01.810 Encounter for preprocedural cardiovascular examination (principal); J44.1 Chronic obstructive pulmonary disease with (acute) exacerbation | CPT/HCPCS: 94010; 99212 ==

== ENCOUNTER → 2022-12-07 07:42 | Outpatient (REF) | payer MEDICARE, OTHER, SELFPAY ==
--- NOTE | ~2022-12-07 | NM_ITS ---
Myocardial perfusion study Indication: Preoperative cardiovascular risk stratification with underlying coronary artery disease Technique: The patient was brought in for a Lexiscan perfusion study on 12/07/2022. Patient performed low-level exercise and was injected 0.4 mg of Lexiscan intravenously. Within a minute of injection, 35 mCi of sestamibi was given intravenously. Images were obtained using the SPECT gamma camera interlaced with the gating device. Images were obtained in supine position. Resting perfusion study was performed on 12/11/2022. Patient was administered 35 mCi of sestamibi intravenously at rest. Images were then obtained in supine position. Images obtained with and without CT attenuation. Total DLP 130 mGy-cm. Images were processed with the software and compared side to side in short axis, horizontal long axis and vertical long axis views. Findings: The stress perfusion study showed non attenuated study showed mildly to moderately reduced uptake in the inferior as well as inferoseptal wall of the LV myocardium. Is also minimally reduced uptake in the distal anterior wall of the LV myocardium. Remainder of the LV myocardium is normally perfused. Attenuation corrected images shows minimally reduced uptake in the distal septum of the LV myocardium, most suggestive. The gated study shows normal LV systolic function with calculated LVEF of 52%. LV cavity is mildly dilated size. The gated study shows overall normal wall thickening and contraction of all segments, except for the basal inferior wall. Resting study shows nontender images show normal uptake in the inferior inferoseptal wall of the LV myocardium. Gating at rest reveals normal systolic wall motion with ejection fraction at 58%. The findings are consistent with reversible defect in the inferior wall. NM/NM emri perf SPECT rest & str Impression: 1. Myocardial perfusion imaging study shows moderate size mild to moderate intensity inferior and inferoseptal ischemia in RCA distribution 2. Gated LVEF is 52% with stress and 58% with rest 3. Transient ischemic dilatation present EKG is nondiagnostic for ischemia
--- NOTE | 2022-12-07 07:45 | CA_ITS ---
Acquisition Time: 2022-12-07 08:03:04 Total Exercise Time: 00:02:00 Test Indications: CAD, PREOP Medications: SEE H Protocol: LEXISCAN Max HR: 079 BPM 56% of Pred: 139 BPM Max BP: 142/068 mmHG Max Work Load: 1.0 METS Pharmacological stress test with Lexiscan injection while sititng and marching in place, without anginal symptoms, with isolated PACs, with normotensive response to injection, without EKG changes. Nuclear images pending. Test reviewed with Dr. Barrera. Referred By: Jhonathan Gama Overread By: NOBLE VALLES
== END ==
LOC: HO.CARD 07:42
PROVIDERS: PCP Internal Medicine Medical Oncology; Visit Provider Internal Medicine Cardiovascular Disease
DX: Z01.810 Encounter for preprocedural cardiovascular examination (principal)
CPT/HCPCS: 78452; 93017; A9500; J0280; J2785

== ENCOUNTER 2022-12-18 11:46 | Outpatient (REF) | payer MEDICARE, OTHER, SELFPAY ==
[2022-12-18 13:11] LABS: MANUAL DIFF FLAG NO
[2022-12-18 13:25] LABS: Basophils Percent Auto 0.6 % (0-2); Eosinophils Absolute Auto 0.2 X10*3/uL (0.0-0.4); Eosinophils Percent Auto 2.7 % (0-4); Hematocrit 44.7 % (42.0-52.0); Hemoglobin 14.4 g/dl (14.0-18.0); Imm Gran Abs Auto 0.02 X10*3/uL (0.00-0.03); Imm Gran Pct Auto 0.3 % (0.0-0.4); Lymphocytes Absolute Auto 1.6 X10*3/uL (1.2-4.9); Mean Corpuscular HGB Conc 32.2 g/dl (31.0-36.0); Mean Corpuscular Hemoglobin 31.5 pg (27.0-33.0); Mean Corpuscular Volume 97.8 fL (80.0-98.0); Mean Platelet Volume 9.3 fL (9.4-12.4); Monocytes Absolute Auto 0.6 X10*3/uL (0.1-1.2); Monocytes Percent Auto 8.4 % (2-11); Neutrophils Absolute Auto 4.4 x10*3/uL (2.0-8.3); Platelet Count 264 X10*3/uL (160-400); Red Blood Count 4.57 X10*6/uL (4.60-5.80); Red Cell Distribution Width 13.3 % (11.0-16.0); White Blood Count 6.8 X10*3/uL (4.8-10.8)
[2022-12-18 13:42] LABS: Alanine Aminotransferase 17 U/L (0-40); Albumin Level 4.4 g/dL (3.5-5.0); Alkaline Phosphatase 92 U/L (39-117); Anion Gap 11 (12-20); Aspartate Amino Transferase 21 U/L (5-37); Bilirubin Total 1.2 mg/dL (0.0-1.0); Blood Urea Nitrogen 21 mg/dL (9-16); Calcium 9.8 mg/dL (8.4-10.2); Carbon Dioxide 28 mmol/L (22-29); Chloride 109 mmol/L (96-108); Cholesterol 124 mg/dL; Estimated Glomerular Filt Rate 58; Glucose Fasting 95 mg/dL (60-99); HDL Cholesterol 36 mg/dL; LDL Cholesterol Calculated 66 mg/dl; Potassium 5.4 mmol/L (3.3-5.1); Sodium 143 mmol/L (135-145); Total Protein 7.3 g/dL (6.5-8.0); Triglycerides 113 mg/dL
[2022-12-18 13:59] LABS: Prostate Specific Antigen 1.49 ng/mL (<0.05-4.0)
== END 2022-12-18 11:47 | disposition home or self-care (01) ==
LOC: HO.10HDL 11:46
PROVIDERS: Visit Provider Internal Medicine Medical Oncology
DX: Z12.5 Encounter for screening for malignant neoplasm of prostate (principal); E78.5 Hyperlipidemia, unspecified; I10 Essential (primary) hypertension; N40.0 Benign prostatic hyperplasia without lower urinary tract symptoms
CPT/HCPCS: 36415; 80053; 80061; 84153; 85025

== ENCOUNTER 2023-01-07 11:52 | Outpatient (REF) | payer MEDICARE, OTHER, SELFPAY ==
--- NOTE | ~2023-01-07 | XR_ITS ---
EXAMINATION: Pelvis and right hip x-ray CLINICAL INFORMATION: Pain COMPARISON: Previous pelvis x-ray and left hip x-ray September 2022 TECHNIQUE: AP view of the pelvis. Frog-leg view of the right hip. FINDINGS: There is severe right hip arthritis with joint space narrowing and osteophyte formation and subchondral cyst formation. There is moderate to severe arthritis at the left hip joint. There is increased subchondral sclerosis of the left femoral head questionable for AVN. No acute fracture. There is question of old trauma to the left inferior pubic ramus. Degenerative changes of the visualized lower lumbar spine. Atherosclerotic disease. XR/XR pelvis 1-2V IMPRESSION: Severe right hip arthritis. Moderate left hip arthritis and question AVN.
--- NOTE | ~2023-01-07 | XR_ITS ---
EXAMINATION: Pelvis and right hip x-ray CLINICAL INFORMATION: Pain COMPARISON: Previous pelvis x-ray and left hip x-ray September 2022 TECHNIQUE: AP view of the pelvis. Frog-leg view of the right hip. FINDINGS: There is severe right hip arthritis with joint space narrowing and osteophyte formation and subchondral cyst formation. There is moderate to severe arthritis at the left hip joint. There is increased subchondral sclerosis of the left femoral head questionable for AVN. No acute fracture. There is question of old trauma to the left inferior pubic ramus. Degenerative changes of the visualized lower lumbar spine. Atherosclerotic disease. XR/XR hip RT 1V IMPRESSION: Severe right hip arthritis. Moderate left hip arthritis and question AVN.
== END 2023-01-07 11:53 | disposition home or self-care (01) ==
LOC: HO.HOSX 11:52
PROVIDERS: PCP Internal Medicine Medical Oncology; Visit Provider Orthopaedic Surgery
DX: Z01.818 Encounter for other preprocedural examination (principal); M16.0 Bilateral primary osteoarthritis of hip
CPT/HCPCS: 72170; 73501; 73502

== ENCOUNTER 2023-01-08 09:47 | Inpatient (IN) | payer MEDICARE, OTHER, SELFPAY ==
[2022-12-25 12:01] VITALS: BP 146/74; PULSE 75; RESP 16; O2SAT 96; BMI 27.3
--- NOTE | 2022-12-25 12:24 | HO.ANESPROP2 ---
Documented by User: Calli Plata NP 01/01/23 14:46 HPI - Anesthesia Eval Consult details Narrative: 82yo M for Right Hip Total Replacement, 01/08/23 Cardiac cleared at [facility] (nuc stress test = moderate size mild to moderate intensity inferior and inferoseptal ischemia in RCA distribution. Known with stenting 1997) PCP cleared *Pt prefers spinal over GA* PMFSH Active Problems Active Problems: All Active Problems (Updated 11/19/22 @ 14:56 by Jhonathan Gama MD) CAD (coronary artery disease) (Acute) Right knee pain (Acute) Primary localized osteoarthritis of right knee (Acute) Primary localized osteoarthritis of hips, bilateral (Acute) Post-traumatic osteoarthritis, left wrist (Acute) Strain of muscle, fascia and tendon of left hip, initial encounter (Acute) Preop cardiovascular exam (Acute) Aortic aneurysm (Acute) HTN (hypertension) (Acute) COPD (chronic obstructive pulmonary disease) (Acute) MARISOL on CPAP (Acute) Pulmonary nodules (Acute) Osteoarthritis of right hip (Acute) Fracture of left distal radius (Acute) Past Medical History Medical History Aortic aneurysm CAD (coronary artery disease) Cataracts, bilateral COPD (chronic obstructive pulmonary disease) Depression Fracture of left distal radius HTN (hypertension) Hyperlipidemia MARISOL on CPAP Osteoarthritis of right hip Personal history of nicotine dependence Pulmonary nodules Wears hearing aid in both ears Family History Family History Mother No problems noted. Father No problems noted. Family history of problems with anesthesia: No Surgical History Surgical History History of cataract surgery (~2009) History of colonoscopy History of heart artery stent (~1997) Hx of vascular surgery History of Problems with Anesthesia: No Social History Social History Are you a primary customer care specialist to a significant other at home: No Do you presently have visiting nurse or other home services: Yes (VNA for post-op) Alcohol intake: never Patient Tobacco Use Status: Former Tobacco user Quit Date: 2004 Tobacco use type: Cigarette Years Smoked: 30 Use of substances other than those prescribed or required for medical reasons: No Have you been hit, kicked, punched, or otherwise hurt by someone within the past year? 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 Activity limited to hip pain Meds Allergies Allergy/AdvReac Type Severity Reaction Status Date / Time N.K.D.A. Allergy Unknown Uncoded 01/07/23 12:24 Home Medications Medication Instructions Recorded Confirmed Last Taken Type bupropion HCl 300 mg 24 hr tablet, 300 mg PO BEDTIME 07/22/20 12/25/22 01/07/23 History extended release celecoxib 200 mg capsule 200 mg PO BEDTIME 07/22/20 12/25/22 01/02/23 History finasteride 5 mg tablet 5 mg PO BEDTIME 07/22/20 12/25/22 01/07/23 History isosorbide mononitrate 30 mg 30 mg PO BEDTIME 07/22/20 12/25/22 01/07/23 History tablet,extended release 24 hr metoprolol succinate 50 mg 50 mg PO BEDTIME 07/22/20 12/25/22 01/07/23 History tablet,extended release 24 hr flu vacc 2020-21(65yr ml IM 07/29/20 12/05/22 Unknown History up)-MF59C(PF) 60 mcg(15 mcgx4)/0.5 mL IM syringe clopidogrel 75 mg tablet 75 mg PO BEDTIME 10/06/20 12/25/22 01/02/23 History docusate sodium 100 mg capsule 100 mg PO BEDTIME 10/27/21 12/25/22 Unknown History (Colace) CPAP (CPAP Machine/Device) 06/01/22 12/05/22 Unknown History multivitamin 1 tab PO BEDTIME 06/01/22 12/25/22 01/07/23 History nfskjepb-deoloxyaq-ieakjywc 3.5 1 drp ophthalmic (eye) BID PRN Eye 06/01/22 12/24/22 01/08/23 History mg/mL-10,000 unit/mL-0.1% eye drops Irritation pantoprazole 40 mg tablet,delayed 40 mg PO BEDTIME PRN Gastric Reflux 06/01/22 12/25/22 01/07/23 History release tamsulosin 0.4 mg capsule (Flomax) 0.4 mg PO DAILY@1700 06/01/22 12/25/22 Unknown History vitamin B complex (B 1 tab PO BEDTIME 06/01/22 12/25/22 01/07/23 History Complex-Vitamin B12 tablet) aspirin 325 mg tablet 325 mg PO BEDTIME 11/19/22 12/25/22 01/02/23 History calcium 12/24/22 01/07/23 History cholecalciferol (vitamin D3) 25 25 mcg PO BEDTIME 12/24/22 12/25/22 01/07/23 History mcg (1,000 unit) tablet (Vitamin D3) fluticasone fur. 100 mcg-umeclid 1 inh inhalation DAILY 12/24/22 12/24/22 01/07/23 History 62.5 mcg-vilant 25 mcg inhalat.powder (Trelegy Ellipta) zinc 12/24/22 01/07/23 History acetaminophen 500 mg capsule 1,000 mg PO BID PRN Pain 12/25/22 12/25/22 01/07/23 History Exam Exam Date and Time: December 25, 2022 1224 Height,Weight and Vital Signs: Height 6 ft 4 in Weight 101.605 kg Last Vital Signs Pulse 75 12/25/22 12:01 Resp 16 12/25/22 12:01 BP 146/74 H 12/25/22 12:01 Pulse Ox 96 12/25/22 12:01 O2 Del Method Room Air 12/25/22 12:01 Pertinent Lab Results Pertinent Lab Results: Laboratory Tests 12/18/22 12/18/22 11:57 11:57 WBC 6.8 Hgb 14.4 Hct 44.7 Plt Count 264 BUN 21 H Creatinine 1.20 Narrative Narrative: EKG 11/2022 normal sinus rhythm with normal EKG NM emir perf SPECT rest & str 11/2022 Impression: ? 1.? Myocardial perfusion imaging study shows moderate size mild to moderate intensity inferior and inferoseptal ischemia in RCA distribution 2.? Gated LVEF is 52% with stress and 58% with rest 3. Transient ischemic dilatation present ? EKG is nondiagnostic for ischemia ECHO 09/2022 Conclusions: - 1. Normal LV systolic function with impaired relaxation filling pattern with underlying regional wall motion abnormality ? suggestive coronary artery disease ? 2. Normal cardiac valvular Doppler ? 3. Moderately dilated ascending aorta at 4.5 cm? 4. No gross pericardial effusion ? Airway Mallampati Class: I TM Dist: >3cm Neck ROM: Full Partial: Upper and Lower Heart: RRR Lungs: CTAB Assessment and Plan Assessment Anesthesia Assessment: Anesthesia Plan Discussed and PAT Visit Final Anesthetic Review Family History of Problems with Anesthesia: No History of Problems with Anesthesia: No Documented by User: Edelmira Rendon MD 01/08/23 11:52 [facility] Past Medical History Medical History Aortic aneurysm CAD (coronary artery disease) Cataracts, bilateral COPD (chronic obstructive pulmonary disease) Depression Fracture of left distal radius HTN (hypertension) Hyperlipidemia MARISOL on CPAP Osteoarthritis of right hip Personal history of nicotine dependence Pulmonary nodules Wears hearing aid in both ears Family History Family History Mother No problems noted. Father No problems noted. Surgical History Surgical History History of cataract surgery (~2009) History of colonoscopy History of heart artery stent (~1997) Hx of vascular surgery Social History Social History Are you a primary customer care specialist to a significant other at home: No Do you presently have visiting nurse or other home services: Yes (VNA for post-op) Alcohol intake: never Patient Tobacco Use Status: Former Tobacco user Quit Date: 2004 Tobacco use type: Cigarette Years Smoked: 30 Use of substances other than those prescribed or required for medical reasons: No Have you been hit, kicked, punched, or otherwise hurt by someone within the past year? 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 Allergy Unknown Uncoded 01/07/23 12:24 Home Medications Medication Instructions Recorded Confirmed Last Taken Type bupropion HCl 300 mg 24 hr tablet, 300 mg PO BEDTIME 07/22/20 12/25/22 01/07/23 History extended release celecoxib 200 mg capsule 200 mg PO BEDTIME 07/22/20 12/25/22 01/02/23 History finasteride 5 mg tablet 5 mg PO BEDTIME 07/22/20 12/25/22 01/07/23 History isosorbide mononitrate 30 mg 30 mg PO BEDTIME 07/22/20 12/25/22 01/07/23 History tablet,extended release 24 hr metoprolol succinate 50 mg 50 mg PO BEDTIME 07/22/20 12/25/22 01/07/23 History tablet,extended release 24 hr flu vacc 2020-21(65yr ml IM 07/29/20 12/05/22 Unknown History up)-MF59C(PF) 60 mcg(15 mcgx4)/0.5 mL IM syringe clopidogrel 75 mg tablet 75 mg PO BEDTIME 10/06/20 12/25/22 01/02/23 History docusate sodium 100 mg capsule 100 mg PO BEDTIME 10/27/21 12/25/22 Unknown History (Colace) CPAP (CPAP Machine/Device) 06/01/22 12/05/22 Unknown History multivitamin 1 tab PO BEDTIME 06/01/22 12/25/22 01/07/23 History vhvofmog-fefhnuoeo-tlzieewo 3.5 1 drp ophthalmic (eye) BID PRN Eye 06/01/22 12/24/22 01/08/23 History mg/mL-10,000 unit/mL-0.1% eye drops Irritation pantoprazole 40 mg tablet,delayed 40 mg PO BEDTIME PRN Gastric Reflux 06/01/22 12/25/22 01/07/23 History release tamsulosin 0.4 mg capsule (Flomax) 0.4 mg PO DAILY@1700 06/01/22 12/25/22 Unknown History vitamin B complex (B 1 tab PO BEDTIME 06/01/22 12/25/22 01/07/23 History Complex-Vitamin B12 tablet) aspirin 325 mg tablet 325 mg PO BEDTIME 11/19/22 12/25/22 01/02/23 History calcium 12/24/22 01/07/23 History cholecalciferol (vitamin D3) 25 25 mcg PO BEDTIME 12/24/22 12/25/22 01/07/23 History mcg (1,000 unit) tablet (Vitamin D3) fluticasone fur. 100 mcg-umeclid 1 inh inhalation DAILY 12/24/22 12/24/22 01/07/23 History 62.5 mcg-vilant 25 mcg inhalat.powder (Trelegy Ellipta) zinc 12/24/22 01/07/23 History acetaminophen 500 mg capsule 1,000 mg PO BID PRN Pain 12/25/22 12/25/22 01/07/23 History Exam Airway Mallampati Class: II Neck ROM: Limited Assessment and Plan Assessment Anesthesia Assessment: Chart Reviewed Final Anesthetic Review NPO: Yes ASA Class: III Final Preanesthetic Review: No Changes in Pt Med Stat, Meds/Allgs Chart Reviewed, Consent Obtained/Reviewed and Anes Risks/Benef Reviewed Patient Risk: Intermediate Procedure Risk: Intermediate Anesthetic Plan Anesthetic Plan: GA Disposition: Standard PACU
[2022-12-25 14:50] LABS: Anion Gap 13 (12-20); Carbon Dioxide 23 mmol/L (22-29); Chloride 110 mmol/L (96-108); Potassium 4.2 mmol/L (3.3-5.1); Sodium 142 mmol/L (135-145)
[2022-12-25 16:28] LABS: MRSA Nasal PCR NEGATIVE (Negative); SA Nasal PCR NEGATIVE (Negative)
[2023-01-08] VITALS (14 sets, daily range): BP systolic 107–158; BP diastolic 59–87; PULSE 70–80; RESP 15–20; TEMP 36.1–36.5; O2SAT 93–99
--- NOTE | ~2023-01-08 | XR_ITS ---
EXAMINATION: XR PELVIS CLINICAL INFORMATION: Post right hip replacement COMPARISON: Previous x-ray from yesterday TECHNIQUE: AP view of the pelvis. FINDINGS: There is a new right hip replacement in satisfactory position. No fracture or dislocation. There are postoperative changes to the soft tissues. There is arthritis at the left hip joint. There is atherosclerotic disease. XR/XR pelvis 1-2V IMPRESSION: Satisfactory appearance of right hip placement.
--- OUTSIDE RECORDS SUMMARY | 2023-01-08 09:59 | XMS_ITS | Continuity of Care Document ---
Author Name Unknown Organization [facility] Address [address] [place] [address]- Care Team Providers Care Dish Up Person Name Role Phone Tony Greenwood MD Primary Care Physician Encounter [facility] [place] Date(s): 11/05/20 - 03/05/21 [facility] [address] [place], [place] [address] Attending Physician: Karthik Dee MD Admitting Physician: Karthik Dee MD Referring Physician: Tony Greenwood MD Allergies, Adverse Reactions, Alerts No Known Medication Allergies Medications Altace 10 mg oral capsule 1 capsule, By Mouth, Daily, # 30 capsule, 0 Refills, Maintenance, 03/30/14 8:16:47, Capsule Start Date: 03/30/14 Status: Ordered aspirin 81 mg oral delayed release tablet 81 mg, 1, tablet, By Mouth, Daily, # 30 tablet, Refills 0, Maintenance, 02/25/18 8:58:08 EDT Start Date: 02/25/18 Status: Ordered atorvastatin 80 mg oral tablet 1 tablet = 80 mg, By Mouth, Daily, # 30 tablet, 0 Refills, Maintenance, Tablet Start Date: 11/06/17 Status: Ordered Doxycycline Capsule See Instructions, Maintenance, 100 mg By Mouth Every 12 hours, 02/25/18 9:02:16 EDT Start Date: 02/25/18 Status: Ordered finasteride 5 mg oral tablet 1 tablet = 5 mg, By Mouth, Daily, # 30 tablet, 0 Refills, Maintenance, 11/06/17 6:41:11 EDT, Tablet Start Date: 11/06/17 Status: Ordered isosorbide mononitrate 30 mg oral tablet, extended release 30 mg, By Mouth, Daily, # 30 tablet, Refills 3, Tot. Refills 3, Maintenance, 02/26/18 12:21:29 EDT,Route to Pharmacy Electronically, [id number], [facility] Start Date: 02/26/18 Status: Ordered metoprolol 50 mg oral tablet, extended release 50 mg, 1, tablet, By Mouth, Daily, # 30 tablet, Refills 0, Maintenance, 02/25/18 9:01:29 EDT Start Date: 02/25/18 Status: Ordered Omeprazole By Mouth, Daily, 0 Refills, Maintenance, 04/29/18 9:52:36 EDT Start Date: 04/29/18 Status: Ordered pantoprazole 40 mg oral delayed release tablet 1 tablet = 40 mg, By Mouth, Daily, 0 Refills, Maintenance, 12/21/19 14:54:00 EDT Start Date: 12/21/19 Status: Ordered Plavix 75 mg oral tablet 1 tablet, By Mouth, Daily, # 30 tablet, 0 Refills, Maintenance, 03/30/14 8:17:58, Tablet Start Date: 03/30/14 Status: Ordered tamsulosin 0.4 mg oral capsule 0.4 mg, 1, capsule, By Mouth, Daily, # 30 capsule, Refills 0, Maintenance, 11/06/17 6:41:35 EDT Start Date: 11/06/17 Status: Ordered Wellbutrin XL = 300 mg, By Mouth, Every 24 hours, 0 Refills, Maintenance, 06/10/15 7:24:50 EST Start Date: 06/10/15 Status: Ordered Social History Social History Type Response Smoking Status Former smoker entered on: 03/30/14 Sex
--- OUTSIDE RECORDS SUMMARY | 2023-01-08 09:59 | XMS_ITS | Continuity of Care Document ---
Author Name Unknown Organization [facility] Address [address] [place] [address]- Care Team Providers Care Pharmacy General Manager Name Role Phone Tony Greenwood MD Primary Care Physician [phone] Encounter [facility] ACCT R [id number] Date(s): 12/22/19 - 12/29/19 [facility] [address] [place] [address]- [facility] Attending Physician: Karthik eDe MD Admitting Physician: Karthik Dee MD Referring [...] Maintenance, 02/26/18 12:21:29 EDT,Route to Pharmacy Electronically, [id number], [facility] Start Date: 02/26/18 Status: Ordered [...] 7:24:50 EST Start Date: 06/10/15 Status: Ordered Vital Signs Most recent to oldest [Reference Range]: 1 Height 193 cm (12/21/19 2:50 PM) Weight 97.54 kg (12/21/19 2:50 PM) Body Mass Index [18.5-24.99] 26.19 *H* (12/21/19 2:50 PM) Weight Obtained Via Patient/family state d (12/21/19 2:50 PM) Social History Social History Type Response Smoking Status Former smoker entered on: 03/30/14 Sex
--- OUTSIDE RECORDS SUMMARY | 2023-01-08 09:59 | XMS_ITS | Continuity of Care Document ---
Author Name Unknown Organization [facility] Address [address] [place] [address]- Care Team Providers Care Graduate Assistant Name Role Phone Tony Greenwood MD Primary Care Physician Encounter [facility] Date(s): 04/26/20 - 08/24/20 [facility] [address] [place] [id number] Attending Physician: Karthik Dee MD Admitting Physician: Karthik Dee MD Referring Physician: Karthik Dee MD Allergies, Adverse Reactions, Alerts No Known [...] Maintenance, 02/26/18 12:21:29 EDT,Route to Pharmacy Electronically, [id number], [facility] Start Date: 02/26/18 Status: Ordered metoprolol [...]
--- OUTSIDE RECORDS SUMMARY | 2023-01-08 09:59 | XMS_ITS | Continuity of Care Document ---
Author Name Unknown Organization [facility] Address [address] [place] [address]- Care Team Providers Care Industrial Engineering Director Name Role Phone Krystyna HOLDEN, Tony Rodriguez Primary Care Physician [place] [facility] [place]10[place]22 - 09/09/22 [facility] [address] [place] [id number] Allergies, Adverse Reactions, Alerts No Known Medication Allergies Medications aspirin 81 mg oral delayed release tablet [...] Maintenance, 02/26/18 12:21:29 EDT,Route to Pharmacy Electronically, [id number], [facility] Start Date: 02/26/18 Status: [...] 8:17:58, Tablet Start Date: 03/30/14 Status: Ordered Wellbutrin XL = 300 mg, By Mouth, Every 24 hours, 0 Refills, Maintenance, 06/10/15 7:24:50 EST Start Date: 06/10/15 Status: Ordered Social History Social History Type Response Smoking Status Former smoker entered on: 03/30/14 Sex Patient Care team information Care Team Personnel Name: Tony Greenwood MD Position: [facility] Oncology MD Member Role: PCP Address: Address: [address] [place] [address] [address] [place] [address]- Care Team Related Persons Name: CAMILOJIMMY Address: home [facility] Name: JOSE CAMILO Address: [place] [address]
--- OUTSIDE RECORDS SUMMARY | 2023-01-08 09:59 | XMS_ITS | Continuity of Care Document ---
Author Name Unknown Organization [facility] Address [address] [place] [address] Care Team Providers Care Ride Attendant Name Role Phone Krystyna HOLDEN, Tony Rodriguez Primary Care Physician [place] [facility] [place] R [id number] Date(s): 08/11/21 - 09/10/21 [facility] [address] [place], [place] [address] Attending Physician: Lenora Cash Admitting Physician: Lenora Cash Referring Physician: AdmtrLenora Allergies, Adverse Reactions, Alerts No Known Medication [...] Maintenance, 02/26/18 12:21:29 EDT,Route to Pharmacy Electronically, [id number], [facility] Start Date: 02/26/18 Status: Ordered metoprolol [...]
--- OUTSIDE RECORDS SUMMARY | 2023-01-08 09:59 | XMS_ITS | Continuity of Care Document ---
Author Name Unknown Organization [facility] Address [address] [place] [address] Care Team Providers Care Paper Slitter Name Role Phone Krystyna HOLDEN, Tony Rodriguez Primary Care Physician [place] [facility]s): 11/19/22 - 12/19/22 [facility] [address] [place] [id number] Allergies, Adverse Reactions, Alerts No Known [...] Maintenance, 02/26/18 12:21:29 EDT,Route to Pharmacy Electronically, [id number], [facility] Start Date: 02/26/18 Status: Ordered [...] Team Personnel Name: Tony Greenwood MD Position: [facility] Physician - Oncology Member Role: PCP Address: Address: [address] [place] [address] [address] [place] [address]- Care Team Related Persons Name: JIMMY CAMILO Address: [facility] Name: JOSE CAMILO Address: [facility] [place] [address]
--- OUTSIDE RECORDS SUMMARY | 2023-01-08 09:59 | XMS_ITS | Continuity of Care Document ---
Author Name Unknown Organization [facility] Address [address] [place] [address]- Care Team Providers Care General Duty Nurse Name Role Phone Tony Greenwood MD Primary Care Physician Encounter [facility] [place] Date(s): 10/02/22 - 10/09/22 [facility] [address] [place], [place] [address] Attending Physician: Karthik Dee MD Admitting Physician: [...] Maintenance, 02/26/18 12:21:29 EDT,Route to Pharmacy Electronically, [id number], [facility] Start Date: 02/26/18 Status: [...] oldest [Reference Range]: 1 Height 193 cm (10/02/22 3:30 PM) Weight 100 kg (10/02/22 3:30 PM) Body Mass Index [18.5-24.99 kg/m2] 26.85 kg/m2 *H* (10/02/22 3:30 PM) Blood Pressure [90-138/55-84 mm Hg] 112/ 80mm Hg (10/02/22 3:30 PM) Blood pressure sites Arm, right (10/02/22 3:30 PM) Weight Obtained Via Patient/family state d (10/02/22 3:30 PM) Social History Social History Type Response Smoking Status Former smoker entered on: 03/30/14 Sex Note * Wendy Gregory: PERFORM, SIGN, VERIFY Event Display: Patient Education/Instruction Authored Date: [id number] [facility] *[facility] [address] Clinical Summary Name ZACH CAMILO Age 82 Years 1940 PCP Krystyna HOLDEN, Tony Rodriguez PCP Visit Date 10/02/2022 15:10:00 Additional Instructions: Scheduled Appointments?? Future Appointments ?No Future Appointments Scheduled Follow-Up Instructions ?? Diagnosis Medications: Please continue your medications until treatment is completed or stopped by your provider. Discuss any questions related to medications with your provider. Medications to Continue with No Changes These medications were not printed or sent to your pharmacy Aspirin (aspirin 81 mg oral delayed release tablet) 1 tab(s) Oral Daily. Next Dose: Atorvastatin (atorvastatin 80 mg oral tablet) 1 tab(s) Oral Daily. Next Dose: BuPROpion (Wellbutrin XL) 300 Milligram Oral every 24 hours. Next Dose: Clopidogrel (Plavix 75 mg oral tablet) 1 tab(s) Oral Daily. Next Dose: Doxycycline (Doxycycline Capsule) See Instructions. 100 mg By Mouth Every 12 hours. Next Dose: Finasteride (finasteride 5 mg oral tablet) 1 tab(s) Oral Daily. Next Dose: Isosorbide Mononitrate (isosorbide mononitrate 30 mg oral tablet, extended release) 30 Milligram Oral Daily. Refills: 3. Next Dose: Metoprolol (metoprolol 50 mg oral tablet, extended release) 1 tab(s) Oral Daily. Next Dose: Omeprazole Oral Daily. Next Dose: Pantoprazole (pantoprazole 40 mg oral delayed release tablet) 1 tab(s) Oral Daily. Next Dose: Allergy Info:?? No Known Medication Allergies Medications Given This Visit Future Orders ?No future orders Vital Signs Height 193 cm Weight 100 kg BMI 26.85 kg/m2 Blood Pressure 112 mm Hg/80 mm Hg Temperature Pulse Rate Respiratory Rate 02 Sat Mode of Delivery / You can now view a summary of your hospital visit from the comfort of your home through a free online portal called [email or web address]. [email or web address] is a website that allows you to securely view your medical information including discharge summary, medications and follow-up visits. ??You can alsosend a secure electronic message to your doctor???s office to request appointments, renew medications or just ask a question. You can enroll at [email or web address] or register during your next office visit. Disclaimer:?? The information provided is of a general nature and is intended to be used in conjunction with the recommendations and advice of your health care practitioner. ??Every effort has been made to ensure that the information provided is accurate and complete at the time it is provided to you however, as your needs change, or, as new ??information becomes available, different or additional instructions may be required. If you have questions, please consult with your primary care provider or pharmacist, as appropriate. ??This information is not intended to serve as substitution for assessment and evaluation by a qualified health care provider. If you do not have a primary care provider, you may find a [facility] provider by calling [facility] at [phone]. For information about the plan of care including goals and instructions for your diagnosis, please see the patient education orders section of this document. Patient Education Materials?? The content of this educational material or handout may have been modified, supplemented, or adapted from its original content and format to support your individualized medical care. Patient Care team information Care Team Personnel Name: Tony Greenwood MD Position: [facility] Oncology MD Member Role: PCP Address: Address: [address] [place] [address] [address] [place] [address]- Care Team Related Persons Name: CAMILOJIMMY Address: home [facility] Name: JOSE CAMILO Address: [facility] [place] [address]
--- OUTSIDE RECORDS SUMMARY | 2023-01-08 09:59 | XMS_ITS | Continuity of Care Document ---
Author Name Unknown Organization [facility] Address [address] [place] [address]- Care Team Providers Care Antenna Machine Operator Name Role Phone Krystyna HOLDEN, Tony Rodriguez Primary Care Physician Encounter [facility] [place] Date(s): 10/01/22 - 10/31/22 [facility] [address] [place] [address] Allergies, Adverse Reactions, Alerts No Known Medication [...] Maintenance, 02/26/18 12:21:29 EDT,Route to Pharmacy Electronically, [id number], [facility] Start Date: 02/26/18 Status: [...] Team Personnel Name: Tony Greenwood MD Position: [facility] Oncology MD Member Role: PCP Address: Address: [address] [place] [address] [address] [place] [address]- Care Team Related Persons Name: CAMILOJIMMY Address: home [facility] Name: JOSE CAMILO Address: [facility] [place] [address]
--- OUTSIDE RECORDS SUMMARY | 2023-01-08 09:59 | XMS_ITS | Continuity of Care Document ---
Author Name Unknown Organization [facility] Address [address] [place] [address]- Care Team Providers Care Wash Oil Cooler Operator Name Role Phone Krystyna HOLDEN, Tony Rodriguez Primary Care Physician [phone] [place] [facility] [place] 03/27/21 - 04/26/21 [facility] [address] [place] [address] Allergies, Adverse Reactions, Alerts No Known [...] Maintenance, 02/26/18 12:21:29 EDT,Route to Pharmacy Electronically, [id number], [facility] Start Date: 02/26/18 Status: [...]
--- OUTSIDE RECORDS SUMMARY | 2023-01-08 09:59 | XMS_ITS | Continuity of Care Document ---
Author Name Unknown Organization [facility] Address [address] [place] [address]- Care Team Providers Care Aviation Metalsmith Name Role Phone Tony Greenwood MD Primary Care Physician [phone] [id number] Date[facility] 08/15/21 - 11/16/21 [facility] [address] [place], [place] [address] Attending Physician: Karthik Dee MD Admitting Physician: Karthik Dee MD Allergies, Adverse Reactions, [...] Maintenance, 02/26/18 12:21:29 EDT,Route to Pharmacy Electronically, [id number], [facility] 3 Start Date: 02/26/18 Status: Ordered metoprolol [...]
--- OUTSIDE RECORDS SUMMARY | 2023-01-08 09:59 | XMS_ITS | Continuity of Care Document ---
Author Name Unknown Organization [facility] Address [address] [place] [address]- Care Team Providers Care Loan Consultant Name Role Phone Krystyna HOLDEN, Tony Rodriguez Primary Care Physician [place] [facility] [place] 08/02/20 - 09/01/20 [facility] [address] [place], [place] [address] Attending Physician: Lenora Cash Admitting Physician: Lenora [...] Maintenance, 02/26/18 12:21:29 EDT,Route to Pharmacy Electronically, [id number], [facility] Start Date: 02/26/18 Status: [...]
--- OUTSIDE RECORDS SUMMARY | 2023-01-08 09:59 | XMS_ITS | Continuity of Care Document ---
Author Name Unknown Organization [facility] Address [address] [place] [address]- Care Team Providers Care Other Sports Coach Or Instructor Name Role Phone Krystyna HOLDEN, Tony Rodriguez Primary Care Physician Encounter [facility] [place] Date(s): 06/19/21 - 07/19/21 [facility] [address] [place] [address] Allergies, Adverse Reactions, Alerts [...] Maintenance, 02/26/18 12:21:29 EDT,Route to Pharmacy Electronically, [id number], [facility] Start Date: 02/26/18 Status: [...]
--- OUTSIDE RECORDS SUMMARY | 2023-01-08 09:59 | XMS_ITS | Continuity of Care Document ---
Author Name Unknown Organization [facility] Address [address] [place] [address]- Care Team Providers Care Loan Collector Name Role Phone Krystyna HOLDEN, Tony Rodriguez Primary Care Physician [phone] Encounter [facility] Date(s): 05/08/21 - 06/07/21 [facility] [address] [place] [address] Allergies, Adverse Reactions, Alerts No [...] Maintenance, 02/26/18 12:21:29 EDT,Route to Pharmacy Electronically, [id number], [facility] Start Date: 02/26/18 Status: Ordered [...]
--- OUTSIDE RECORDS SUMMARY | 2023-01-08 09:59 | XMS_ITS | Continuity of Care Document ---
Author Name Unknown Organization [facility] Address [address] [place] [address]- Care Team Providers Care Show Worker Name Role Phone Krystyna HOLDEN, Tony Rodriguez Primary Care Physician En[facility] [place] [place] [id number] Date(s): 05/05/21 - 06/04/21 [facility] [address] [place], [place] [address] Attending Physician: Lenora Cash Admitting [...] Maintenance, 02/26/18 12:21:29 EDT,Route to Pharmacy Electronically, [id number], [facility] 3 Start Date: 02/26/18 Status: Ordered metoprolol [...]
--- OUTSIDE RECORDS SUMMARY | 2023-01-08 09:59 | XMS_ITS | Continuity of Care Document ---
Author Name Unknown Organization [facility] Address [address] [place] [address]- Care Team Providers Care Gas Welder Apprentice Name Role Phone Krystyna HOLDEN, Tony Rodriguez Primary Care Physician [place] [facility] [place] 05[place]08/21 - 06/07/21 [facility] [address] [place], [place] [address] Allergies, Adverse Reactions, Alerts No Known [...] Maintenance, 02/26/18 12:21:29 EDT,Route to Pharmacy Electronically, [id number], [facility] Start Date: 02/26/18 Status: [...]
--- OUTSIDE RECORDS SUMMARY | 2023-01-08 09:59 | XMS_ITS | Continuity of Care Document ---
Author Name Unknown Organization [facility] Address [address] [place] [address]- Care Team Providers Care Student Teaching Coordinator Name Role Phone Krystyna HOLDEN, Tony Rodriguez Primary Care Physician [phone] En[place] [facility] [place] Date(s): 04/05/21 - 05/05/21 [facility] [address] [place], [place] [address] Attending Physician: Lenora Cash Admitting Physician: Lenora [...] Maintenance, 02/26/18 12:21:29 EDT,Route to Pharmacy Electronically, [id number], [facility] 3 Start Date: 02/26/18 Status: Ordered metoprolol [...]
--- OUTSIDE RECORDS SUMMARY | 2023-01-08 09:59 | XMS_ITS | Continuity of Care Document ---
Author Name Unknown Organization [facility] Address [address] [place] [address]- Care Team Providers Care Entertainment Centre Manager Name Role Phone Tony Greenwood MD Primary Care Physician Encounter [facility] [place] Date(s): 11/01/20 - 03/01/21 [facility] [address] [place], [place] [address] Attending Physician: Karthik Dee MD Admitting [...] Maintenance, 02/26/18 12:21:29 EDT,Route to Pharmacy Electronically, [id number], [facility] 3 Start Date: 02/26/18 Status: Ordered [...]
--- OUTSIDE RECORDS SUMMARY | 2023-01-08 09:59 | XMS_ITS | Continuity of Care Document ---
Author Name Unknown Organization [facility] Address [address] [place] [address]- Care Team Providers Care Skimmer Reverberatory Name Role Phone Tony Greenwood MD Primary Care Physician En[place] [facility] [place] Date(s): 02/02/21 - 05/11/21 [facility] [address] [place], [place] [address] Attending Physician: Karthik Dee MD Admitting [...] Maintenance, 02/26/18 12:21:29 EDT,Route to Pharmacy Electronically, [id number], [facility] 3 Start Date: 02/26/18 Status: Ordered [...]
--- OUTSIDE RECORDS SUMMARY | 2023-01-08 09:59 | XMS_ITS | Continuity of Care Document ---
Author Name Unknown Organization [facility] Address [address] [place] [address]- Care Team Providers Care Bacteriologist Fishery Name Role Phone Krystyna HOLDEN, Tony Rodriguez Primary Care Physician [phone] [place] [facility] [place] 04/05/21 - 04/12/21 [facility] [address] [place], [place] [address] Attending Physician: Rony Greenwood MD Admitting Physician: Rony Greenwood MD Allergies, Adverse Reactions, Alerts No [...] Maintenance, 02/26/18 12:21:29 EDT,Route to Pharmacy Electronically, [id number], [facility] Start Date: 02/26/18 Status: [...] oldest [Reference Range]: 1 Height 193 cm (04/05/21 9:04 AM) Weight 97.54 kg (04/05/21 9:04 AM) Pulse Rate [55-90 bpm] 76 bpm (04/05/21 9:04 AM) Body Mass Index [18.5-24.99] 26.19 *H* (04/05/21 9:04 AM) Blood Pressure [90-138/55-84 mm Hg] 110/ 72mm Hg (04/05/21 9:04 AM) Mode of Delivery (Oxygen) Room air (04/05/21 9:04 AM) Blood pressure sites Arm, left (04/05/21 9:04 AM) Weight Obtained Via Patient/family state d (04/05/21 9:04 AM) Social History Social History Type Response Smoking Status Former smoker entered on: 03/30/14 Sex
--- OUTSIDE RECORDS SUMMARY | 2023-01-08 09:59 | XMS_ITS | Continuity of Care Document ---
Author Name Unknown Organization [facility] Address [address] [place] [address]- Care Team Providers Care Lehr Tender Name Role Phone Krystyna HOLDEN, Tony Rodriguez Primary Care Physician En[place] [facility] [place] Date(s): 04/05/21 - 06/04/21 [facility] [address] [place], [place] [address] Attending Physician: Karthik Dee MD Admitting [...] Maintenance, 02/26/18 12:21:29 EDT,Route to Pharmacy Electronically, [id number], [facility] 3 Start Date: 02/26/18 Status: Ordered metoprolol [...]
--- OUTSIDE RECORDS SUMMARY | 2023-01-08 09:59 | XMS_ITS | Continuity of Care Document ---
Author Name Unknown Organization [facility] Address [address] [place] [address]- Care Team Providers Care Manager Integrated Name Role Phone Tony Greenwood MD Primary Care Physician [phone] [id number]): [facility] 11[facility]30[facility] [address] [place], [place] [address] Attending Physician: Karthik Dee MD Admitting Physician: [...] Maintenance, 02/26/18 12:21:29 EDT,Route to Pharmacy Electronically, [id number], [facility] 3 Start Date: 02/26/18 Status: Ordered metoprolol [...]
--- OUTSIDE RECORDS SUMMARY | 2023-01-08 09:59 | XMS_ITS | Continuity of Care Document ---
Author Name Unknown Organization [facility] Address [address] [facility] [address] [place] [address]- Care Team Providers Care Fish And Wildlife Biologist Name Role Phone Tony Greenwood MD Primary Care Physician Encounter 04/17/21 - 04/24/21 [facility] [address], [facility] [address] [place], [place] [address] Attending Physician: [...] Maintenance, 02/26/18 12:21:29 EDT,Route to Pharmacy Electronically, [id number], [facility] 3 Start Date: 02/26/18 Status: Ordered metoprolol [...]
--- OUTSIDE RECORDS SUMMARY | 2023-01-08 09:59 | XMS_ITS | Continuity of Care Document ---
Author Name Unknown Organization [facility] Address [address] [place] [address]- Care Team Providers Care Silver Service Waiter Name Role Phone Krystyna HOLDEN, Tony Rodriguez Primary Care Physician En[place] [facility] [place] Date(s[place] 05/08/21 - 06/07/21 [facility] [address] [place], [place] [address] Allergies, Adverse Reactions, Alerts No Known [...] Maintenance, 02/26/18 12:21:29 EDT,Route to Pharmacy Electronically, [id number], [facility] Start Date: 02/26/18 Status: [...]
--- OUTSIDE RECORDS SUMMARY | 2023-01-08 09:59 | XMS_ITS | Continuity of Care Document ---
Author Name Unknown Organization [facility] Address [address] [place] [address]- Care Team Providers Care Sticker Operator Name Role Phone Krystyna HOLDEN, Tony Rodriguez Primary Care Physician [place] [facility] [place]): 10/31/21 - 11/30/21 [facility] [address] [place] [address]- Attending Physician: Lenora Cash Admitting Physician: Lenora Cash Referring Physician: Lenora Cash Allergies, Adverse Reactions, Alerts No Known Medication [...] Maintenance, 02/26/18 12:21:29 EDT,Route to Pharmacy Electronically, [id number], [facility] 3 Start Date: 02/26/18 Status: Ordered metoprolol [...]
--- OUTSIDE RECORDS SUMMARY | 2023-01-08 09:59 | XMS_ITS | Continuity of Care Document ---
Author Name Unknown Organization [facility] Address [address] [place] [address]- Care Team Providers Care Vocational Coordinator Name Role Phone Tony Greenwood MD Primary Care Physician Encounter [facility] [place]CT R [id number] Date(s): 08/15/21 - 08/22/21 [facility] [address] [place], [place] [address] Attending Physician: Karthik Dee MD [...] Maintenance, 02/26/18 12:21:29 EDT,Route to Pharmacy Electronically, [id number], [facility] 3 Start Date: [...]
--- OUTSIDE RECORDS SUMMARY | 2023-01-08 09:59 | XMS_ITS | Continuity of Care Document ---
Author Name Unknown Organization [facility] Address [address] [place] [address]- Care Team Providers Care Cocoa Room Operator Name Role Phone Tony Greenwood MD Primary Care Physician [phone] [place] [facility] [place](s): 08/02/20 - 08/09/20 [facility] [address] [place] [address] Attending Physician: Karthik Dee MD Admitting [...] Maintenance, 02/26/18 12:21:29 EDT,Route to Pharmacy Electronically, [id number], [facility] Start Date: 02/26/18 [...]
--- OUTSIDE RECORDS SUMMARY | 2023-01-08 10:00 | XMS_ITS ---
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 Active 705644233 Problem Simple chronic bronchitis J41.0 Active 77488487 Problem BPH (benign prostatic hyperplasia) N40.0 Active 701428455 Problem Osteoarthritis of hip, unspecified M16.9 Active 324433245 Problem Depression F32.9 Active 195027901 Problem Erectile dysfunction N52.9 Active 515775494 Problem Former smoker Z87.891 Active 0307089 Problem Overweight E66.3 Active 640703778 Problem Peripheral vascular disease I73.9 Active 236694439 Problem 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 Active 59671580 Problem 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 Active 85746124 Problem Chronic GERD K21.9 Active 381712413 Problem Coronary artery disease I25.10 Active 51981358 Problem Hoarseness R49.0 Active 48690902 Problem History of skin cancer Z85.828 Active 384184488 Problem Obstructive sleep apnea G47.33 Active 60550488 Problem Essential hypertension I10 Active 87895781 Problem Hyperlipidemia E78.5 Active 01966762 Problem 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 Active 948981178 Problem Ascending aortic aneurysm I71.2 Active [id number] ALLERGIES No Known Allergies ENCOUNTERS Encounter Location Date Diagnosis Tony Greenwood III, MD [address] [place] [address] [place] [address] Dec, Tony Greenwood III, MD [address] [place] [address] [place] [address] Dec, Hyperlipidemia E78.5 ; Essential hypertension I10 ; BPH (benign prostatic hyperplasia) N40.0 ; 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 ; 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 ; Peripheral vascular disease I73.9 ; Coronary artery disease I25.10 ; Former smoker Z87.891 ; Overweight E66.3 ; Depression F32.9 ; Ascending aortic aneurysm I71.2 ; 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 ; Chronic GERD K21.9 ; Obstructive sleep apnea G47.33 ; Osteoarthritis of knees, bilateral M17.0 and Osteoarthritis of hip, unspecified M16.9 Tony Greenwood III, MD [address] [place] [address] [place] [address] Sep, Hyperlipidemia E78.5 ; Overweight E66.3 ; Essential hypertension I10 ; 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 ; 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 ; Peripheral vascular disease I73.9 ; Coronary artery disease I25.10 ; History of skin cancer Z85.828 ; Former smoker Z87.891 ; Depression F32.9 ; BPH (benign prostatic hyperplasia) N40.0 ; Ascending aortic aneurysm I71.2 ; Chronic GERD K21.9 ; Obstructive sleep apnea G47.33 and Osteoarthritis of knees, bilateral M17.0 Tony Greenwood III, MD [address] [place] [address] [place] [address] Sep, Tony Greenwood III, MD [address] [place] [address] [place] [address] Sep, Tony Greenwood III, MD [address] [place] [address] [place] [address] Jul, Hyperlipidemia E78.5 ; Essential hypertension I10 ; 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 ; 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9 ; 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 ; 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 ; Coronary artery disease I25.10 ; Former smoker Z87.891 and Depression F32.9 Tony Greenwood III, MD [address] [place] [address] [place] [address] Feb, Hyperlipidemia E78.5 ; Abrasion foot/toe S90.819A ; Essential hypertension I10 ; Peripheral vascular disease I73.9 ; Coronary artery disease I25.10 ; Former smoker Z87.891 ; Overweight E66.3 ; Depression F32.9 ; BPH (benign prostatic hyperplasia) N40.0 ; Chronic GERD K21.9 and Ascending aortic aneurysm I71.2 Tony Greenwood III, MD [address] [place] [address] [place] [address] Jan, Hyperlipidemia E78.5 ; Annual physical exam Z00.00 ; Essential hypertension I10 ; 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 ; Peripheral vascular disease I73.9 ; Coronary artery disease I25.10 ; Former smoker Z87.891 ; Overweight E66.3 ; Depression F32.9 ; BPH (benign prostatic hyperplasia) N40.0 and Ascending aortic aneurysm I71.2 Tony Greenwood III, MD [address] [place] [address] [place] [address] November, Hyperlipidemia E78.5 ; Overweight E66.3 ; BPH (benign prostatic hyperplasia) N40.0 ; 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 ; 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 ; Peripheral vascular disease I73.9 ; Coronary artery disease I25.10 ; Former smoker Z87.891 and Depression F32.9 Tony Greenwood III, MD [address] [place] [address] [place] [address] November, Hyperlipidemia E78.5 ; Coronavirus infection B34.2 ; Essential hypertension I10 ; 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 ; 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 ; Peripheral vascular disease I73.9 ; Coronary artery disease I25.10 ; Former smoker Z87.891 ; Overweight E66.3 ; Depression F32.9 and BPH (benign prostatic hyperplasia) N40.0 Tony Greenwood III, MD [address] [place] [address] [place] [address] Oct, Tony Greenwood III, MD [address] [place] [address] [place] [address] Oct, Tony Greenwood III, MD [address] [place] [address] [place] [address] Oct, Hyperlipidemia E78.5 ; Overweight E66.3 ; BPH (benign prostatic hyperplasia) N40.0 ; Coronary artery disease I25.10 ; Peripheral vascular disease I73.9 ; 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 ; 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 ; Essential hypertension I10 ; Former smoker Z87.891 ; Depression F32.9 ; Ascending aortic aneurysm I71.2 and Chronic GERD K21.9 Tony Greenwood III, MD [address] [place] [address] [place] [address] Aug, Hyperlipidemia E78.5 ; Ascending aortic aneurysm I71.2 ; Essential hypertension I10 ; 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 ; 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 ; Coronary artery disease I25.10 ; Former smoker Z87.891 ; Overweight E66.3 ; Depression F32.9 ; BPH (benign prostatic hyperplasia) N40.0 and Chronic GERD K21.9 Tony Greenwood III, MD [address] [place] [address] [place] [address] Jun, Tony Greenwood III, MD [address] [place] [address] [place] [address] Jun, Hyperlipidemia E78.5 ; Essential hypertension I10 ; Peripheral vascular disease I73.9 ; 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 ; Coronary artery disease I25.10 ; Former smoker Z87.891 ; Overweight E66.3 ; BPH (benign prostatic hyperplasia) N40.0 ; Depression F32.9 and Ascending aortic aneurysm I71.2 Tony Greenwood III, MD [address] [place] [address] [place] [address] 10 Jun, 2021 Hyperlipidemia E78.5 and Overweight E66.3 Tony Greenwood III, MD [address] [place] [address] [place] [address] May, Tony Greenwood III, MD [address] [place] [address] [place] [address] Apr, Tony Greenwood III, MD [address] [place] [address] [place] [address] 29 Mar, 2021 Tony Greenwood III, MD [address] [place] [address] [place] [address] 14 Mar, 2021 Hyperlipidemia E78.5 ; Overweight E66.3 ; BPH (benign prostatic hyperplasia) N40.0 ; Essential hypertension I10 ; Peripheral vascular disease I73.9 ; Coronary artery disease I25.10 ; Former smoker Z87.891 ; Ascending aortic aneurysm I71.2 and Chronic GERD K21.9 Tony Greenwood III, MD [address] [place] [address] [place] [address] Sep, Altered mental status, unspecified altered mental status type R41.82 Tony Greenwood III, MD [address] [place] [address] [place] [address] 17 Sep, 2020 Essential hypertension I10 ; Chronic GERD K21.9 ; Other specified injuries of head, initial encounter S09.8XXA ; Peripheral vascular disease I73.9 ; Former smoker Z87.891 ; Overweight E66.3 ; Depression F32.9 ; BPH (benign prostatic hyperplasia) N40.0 ; Ascending aortic aneurysm I71.2 and Hyperlipidemia E78.5 Tony Greenwood III, MD [address] [place] [address] [place] [address] 15 Sep, 2020 Hyperlipidemia E78.5 ; Essential hypertension I10 and BPH (benign prostatic hyperplasia) N40.0 Tony Greenwood III, MD [address] [place] [address] [place] [address] 03 Sep, 2020 Fracture of unspecified carpal bone, left wrist, initial encounter for closed fracture S62.102A ; Left wrist pain M25.532 and Left arm pain M79.602 Tony Greenwood III, MD [address] [place] [address] [place] [address] Jun, Tony Greenwood III, MD [address] [place] [address] [place] [address] May, Essential hypertension I10 ; Chronic GERD K21.9 ; Hyperlipidemia E78.5 ; BPH (benign prostatic hyperplasia) N40.0 ; 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 ; 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 ; Peripheral vascular disease I73.9 ; Coronary artery disease I25.10 ; Former smoker Z87.891 and Overweight E66.3 Tony Greenwood III, MD [address] [place] [address] [place] [address] Mar, COVID-19 ruled out Z03.818 Tony Greenwood III, MD [address] [place] [address] [place] [address] Feb, Hyperlipidemia E78.5 ; Right hip pain M25.551 ; Essential hypertension I10 and Overweight E66.3 Tony Greenwood III, MD [address] [place] [address] [place] [address] Jan, Tony Greenwood III, MD [address] [place] [address] [place] [address] Dec, Tony Greenwood III, MD [address] [place] [address] [place] [address] Aug, Essential hypertension I10 ; Hyperlipidemia E78.5 ; Coronary artery disease I25.10 ; 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 ; 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 ; Peripheral vascular disease I73.9 ; History of skin cancer Z85.828 ; Former smoker Z87.891 ; Overweight E66.3 ; Depression F32.9 ; BPH (benign prostatic hyperplasia) N40.0 ; Erectile dysfunction N52.9 ; Ascending aortic aneurysm I71.2 ; Chronic GERD K21.9 and Hoarseness R49.0 Tony Greenwood III, MD [address] [place] [address] [place] [address] Aug, Coronary artery disease I25.10 Tony Greenwood III, MD [address] [place] [address] [place] [address] Jul, Tony Greenwood III, MD [address] [place] [address] [place] [address] Apr, Essential hypertension I10 ; Overweight E66.3 ; BPH (benign prostatic hyperplasia) N40.0 and 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 Tony Greenwood III, MD [address] [place] [address] [place] [address] Apr, Tony Greenwood III, MD [address] [place] [address] [place] [address] Feb, Chronic GERD K21.9 ; Hyperlipidemia E78.5 ; Essential hypertension I10 ; 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 ; 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 ; Peripheral vascular disease I73.9 ; Coronary artery disease I25.10 ; Former smoker Z87.891 ; Overweight E66.3 ; Depression F32.9 ; BPH (benign prostatic hyperplasia) N40.0 ; Ascending aortic aneurysm I71.2 and Hoarseness R49.0 Tony Greenwood III, MD [address] [place] [address] [place] [address] Oct, Tony Greenwood III, MD [address] [place] [address] [place] [address] Oct, Tony Greenwood III, MD [address] [place] [address] [place] [address] Oct, Tony Greenwood III, MD [address] [place] [address] [place] [address] Oct, Chronic GERD K21.9 ; Hyperlipidemia E78.5 ; Essential hypertension I10 ; Coronary artery disease I25.10 ; BPH (benign prostatic hyperplasia) N40.0 and Ascending aortic aneurysm I71.2 Tony Greenwood III, MD [address] [place] [address] [place] [address] Aug, Tony Greenwood III, MD [address] [place] [address] [place] [address] Jun, Hyperlipidemia E78.5 ; Essential hypertension I10 ; 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 ; 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 ; Peripheral vascular disease I73.9 ; Coronary artery disease I25.10 ; Former smoker Z87.891 ; Overweight E66.3 ; BPH (benign prostatic hyperplasia) N40.0 ; Ascending aortic aneurysm I71.2 and Chronic GERD K21.9 Tony Greenwood III, MD [address] [place] [address] Jun, Hyperlipidemia E78.5 ; Essential hypertension I10 ; Overweight E66.3 and BPH (benign prostatic hyperplasia) N40.0 Tony Greenwood III, MD [address] [place] [address] Apr, Tony Greenwood III, MD [address] [place] [address] Mar, Tony Greenwood III, MD [address] [place] [address] Feb, Tony Greenwood III, MD [address] [place] [address] Feb, Tony Greenwood III, MD [address] [place] [address] [place] [address] Jan, Chronic GERD K21.9 ; Hyperlipidemia E78.5 ; Essential hypertension I10 ; Peripheral vascular disease I73.9 ; Coronary artery disease I25.10 ; Overweight E66.3 and Former smoker Z87.891 Tony Greenwood III, MD [address] [place] [address] Jan, Hyperlipidemia E78.5 ; Essential hypertension I10 ; Erectile dysfunction N52.9 and Ascending aortic aneurysm I71.2 Tony Greenwood III, MD [address] [place] [address] [place] [address] November, Tony Greenwood III, MD [address] [place] [address] [place] [address] November, Tony Greenwood III, MD [address] [place] [address] [place] [address] November, Tony Greenwood III, MD [address] [place] [address] [place] [address] November, Tony Greenwood III, MD [address] [place] [address] [place] [address] Oct, Tony Greenwood III, MD [address] [place] [address] [place] [address] Oct, Essential hypertension I10 ; Hyperlipidemia E78.5 ; Peripheral vascular disease I73.9 ; 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 ; 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 ; Coronary artery disease I25.10 ; History of skin cancer Z85.828 ; Former smoker Z87.891 ; Overweight E66.3 ; Depression F32.9 ; BPH (benign prostatic hyperplasia) N40.0 ; Ascending aortic aneurysm I71.2 ; GERD without esophagitis K21.9 and 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 Tony Greenwood III, MD [address] [place] [address] [place] [address] Oct, Tony Greenwood III, MD [address] [place] [address] [place] [address] Oct, Tony Greenwood III, MD [address] [place] [address] [place] [address] Sep, Essential hypertension I10 and Conjunctivitis of both eyes, unspecified conjunctivitis type H10.9 Tony Greenwood III, MD [address] [place] [address] [place] [address] Sep, Infection of right eye H44.001 ; Hyperlipidemia E78.5 ; Essential hypertension I10 ; Peripheral vascular disease I73.9 and Coronary artery disease I25.10 Tony Greenwood III, MD [address] [place] [address] [place] [address] Sep, Tony Greenwood III, MD [address] [place] [address] [place] [address] Sep, Tony Greenwood III, MD [address] [place] [address] [place] [address] Jun, Essential hypertension I10 Tony Greenwood III, MD [address] [place] [address] [place] [address] Jun, Coronary artery disease I25.10 ; Former smoker Z87.891 and Fatigue, unspecified type R53.83 Tony Greenwood III, MD [address] [place] [address] [place] [address] Jun, Essential hypertension I10 ; Hyperlipidemia E78.5 ; Peripheral vascular disease I73.9 ; Coronary artery disease I25.10 ; Former smoker Z87.891 ; Overweight E66.3 ; Depression F32.9 ; BPH (benign prostatic hyperplasia) N40.0 and Chronic GERD K21.9 Tony Greenwood III, MD [address] [place] [address] [place] [address] Jun, Pain of upper abdomen R10.10 Tony Greenwood III, MD [address] [place] [address] [place] [address] Apr, Essential hypertension I10 ; Hematochezia K92.1 ; Peripheral vascular disease I73.9 ; Coronary artery disease I25.10 ; Former smoker Z87.891 and Overweight E66.3 Tony Greenwood III, MD [address] [place] [address] [place] [address] Mar, Essential hypertension I10 ; Hyperlipidemia E78.5 ; 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 ; Peripheral vascular disease I73.9 ; Coronary artery disease I25.10 ; History of skin cancer Z85.828 ; Former smoker Z87.891 ; Overweight E66.3 ; Depression F32.9 ; BPH (benign prostatic hyperplasia) N40.0 and Hoarseness, persistent R49.0 Tony Greenwood III, MD [address] [place] [address] [place] [address] Feb, Tony Greenwood III, MD [address] [place] [address] [place] [address] Feb, Tony Greenwood III, MD [address] [place] [address] [place] [address] Feb, Tony Greenwood III, MD [address] [place] [address] [place] [address] November, Essential hypertension I10 ; Hyperlipidemia E78.5 ; 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 ; 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 ; Peripheral vascular disease I73.9 ; Coronary artery disease I25.10 ; Former smoker Z87.891 ; Overweight E66.3 ; Depression F32.9 ; BPH (benign prostatic hyperplasia) N40.0 and Memory loss R41.3 Tony Greenwood III, MD [address] [place] [address] [place] [address] November, Tony Greenwood III, MD [address] [place] [address] [place] [address] Oct, Tony Greenwood III, MD [address] [place] [address] [place] [address] Oct, Tony Greenwood III, MD [address] [place] [address] [place] [address] Oct, Former smoker Z87.891 ; Other symptoms and signs involving cognitive functions and awareness R41.89 ; Hyperlipidemia E78.5 ; Essential hypertension I10 ; 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 ; 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 ; Peripheral vascular disease I73.9 and Memory loss R41.3 Tony Greenwood III, MD [address] [place] [address] [place] [address] Oct, Tony Greenwood III, MD [address] [place] [address] [place] [address] Oct, Tony Greenwood III, MD [address] [place] [address] [place] [address] Jul, Essential hypertension I10 ; Hyperlipidemia E78.5 ; 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 ; 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 ; Peripheral vascular disease I73.9 ; Coronary artery disease I25.10 ; Former smoker Z87.891 ; Overweight E66.3 ; Depression F32.9 and BPH (benign prostatic hyperplasia) N40.0 Tony Greenwood III, MD [address] [place] [address] [place] [address] Apr, Tony Greenwood III, MD [address] [place] [address] [place] [address] Apr, Hyperlipidemia E78.5 ; Essential hypertension I10 ; Peripheral vascular disease I73.9 ; Coronary artery disease I25.10 ; BPH (benign prostatic hyperplasia) N40.0 ; Former smoker Z87.891 and Overweight E66.3 Tony Greenwood III, MD [address] [place] [address] [place] [address] Apr, BPH (benign prostatic hyperplasia) N40.0 Tony Greenwood III, MD [address] [place] [address] [place] [address] Apr, Tony Greenwood III, MD [address] [place] [address] [place] [address] Dec, Tony Greenwood III, MD [address] [place] [address] [place] [address] Dec, Tony Greenwood III, MD [address] [place] [address] [place] [address] November, Tony Greenwood III, MD [address] [place] [address] November, Tony Greenwood III, MD [address] [place] [address] [place] [address] November, Hyperlipidemia E78.5 ; Essential hypertension I10 ; Former smoker Z87.891 ; Peripheral vascular disease I73.9 ; Coronary artery disease I25.10 ; Overweight E66.3 and Depression F32.9 Tony Greenwood III, MD [address] [place] [address] [place] [address] November, Tony Greenwood III, MD [address] [place] [address] [place] [address] Oct, Tony Greenwood III, MD [address] [place] [address] [place] [address] Aug, Tony Greenwood III, MD [address] [place] [address] [place] [address] Jul, Hyperlipidemia E78.5 ; Essential hypertension I10 ; 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 ; 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 ; Peripheral vascular disease I73.9 ; Coronary artery disease I25.10 ; History of skin cancer Z85.828 ; Former smoker Z87.891 ; Overweight E66.3 ; Depression F32.9 and BPH (benign prostatic hyperplasia) N40.0 Tony Greenwood III, MD [address] [place] [address] [place] [address] Jul, Hyperlipidemia E78.5 and Essential hypertension I10 Tony Greenwood III, MD [address] [place] [address] [place] [address] Jul, Tony Greenwood III, MD [address] [place] [address] [place] [address] Jun, Tony Greenwood III, MD [address] [place] [address] [place] [address] Apr, Hyperlipidemia E78.5 ; Essential hypertension I10 ; Peripheral vascular disease I73.9 ; Coronary artery disease I25.10 ; Former smoker Z87.891 ; Overweight E66.3 and Depression F32.9 Tony Greenwood III, MD [address] [place] [address] [place] [address] Mar, Tony Greenwood III, MD [address] [place] [address] [place] [address] Mar, Tony Greenwood III, MD [address] [place] [address] [address] [place] [address] Mar, Tony Greenwood III, MD [address] [place] [address] [place] [address] Dec, Hyperlipidemia 272.4 ; HTN (hypertension) 401.9 ; CAD (coronary artery disease) 414.00 ; BPH (benign prostatic hypertrophy) 600.00 and Former smoker V15.82 Tony Greenwood III, MD [address] [place] [address] [place] [address] Dec, Tony Greenwood III, MD [address] [place] [address] [address] [place] [address] November, Tony Greenwood III, MD [address] [place] [address] [place] [address] Oct, Tony Greenwood III, MD [address] [place] [address] [place] [address] Oct, Tony Greenwood III, MD [address] [place] [address] [place] [address] Sep, Tony Greewnood III, MD [address] [place] [address] [place] [address] Aug, Tony Greenwood III, MD [address] [place] [address] [place] [address] Aug, Hyperlipidemia 272.4 ; HTN (hypertension) 401.9 ; CAD (coronary artery disease) 414.00 ; Former smoker V15.82 ; Peripheral vascular disease 443.9 and Overweight 278.02 Tony Greenwood III, MD [address] [place] [address] [place] [address] Apr, HTN (hypertension) 401.9 ; Popliteal aneurysm 442.3 ; CAD (coronary artery disease) 414.00 ; Depression 311 ; Former smoker V15.82 ; Peripheral vascular disease 443.9 and Overweight 278.02 Tony Greenwood III, MD [address] [place] [address] [place] [address] Feb, Tony Greenwood III, MD [address] [place] [address] [place] [address] Jan, Popliteal aneurysm 442.3 and Mass of left kidney 593.9 Tony Greenwood III, MD [address] [place] [address] [place] [address] Jan, Tony Greenwood III, MD [address] [place] [address] [place] [address] Jan, Hyperlipidemia 272.4 ; HTN (hypertension) 401.9 ; CAD (coronary artery disease) 414.00 and Peripheral vascular disease 443.9 Tony Greenwood III, MD [address] [place] [address] [place] [address] November, Tony Greenwood III, MD [address] [place] [address] [place] [address] Oct, Hyperlipidemia 272.4 ; HTN (hypertension) 401.9 ; BPH (benign prostatic hypertrophy) 600.00 and CAD (coronary artery disease) 414.00 Tony Greenwood III, MD [address] [place] [address] [place] [address] Jun, Tony Greenwood III, MD [address] [place] [address] [place] [address] Jun, Hyperlipidemia 272.4 ; HTN (hypertension) 401.9 ; Popliteal aneurysm 442.3 and CAD (coronary artery disease) 414.00 Tony Greenwood III, MD [address] [place] [address] [place] [address] Jan, Tony Greenwood III, MD [address] [place] [address] [place] [address] Dec, Hyperlipidemia 272.4 ; HTN (hypertension) 401.9 and BPH (benign prostatic hypertrophy) 600.00 Tony Greenwood III, MD [address] [place] [address] [place] [address] Dec, Tony Greenwood III, MD [address] [place] [address] [place] [address] Dec, Tony Greenwood III, MD [address] [place] [address] [place] [address] November, Tony Greenwood III, MD [address] [place] [address] [place] [address] Jul, Tony Greenwood III, MD [address] [place] [address] [place] [address] Jul, Hyperlipidemia 272.4 ; HTN (hypertension) 401.9 ; Popliteal aneurysm 442.3 ; CAD (coronary artery disease) 414.00 ; 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 and BPH (benign prostatic hyperplasia) 600.00 Tony Greenwood III, MD [address] [place] [address] [place] [address] Jul, Tony Greenwood III, MD [address] [place] [address] [place] [address] Jun, Tony Greenwood III, MD [address] [place] [address] [place] [address] Jun, Tony Greenwood III, MD [address] [place] [address] [place] [address] May, Tnoy Greenwood III, MD [address] [place] [address] [place] [address] Apr, Tony Greenwood III, MD [address] [place] [address] [place] [address] Apr, ED (erectile dysfunction) 607.84 ; Smoker 305.1 and Hyperlipidemia 272.4 Tony Greenwood III, MD [address] [place] [address] [place] [address] Apr, Tony Greenwood III, MD [address] [place] [address] [place] [address] Apr, Tony Greenwood III, MD [address] [place] [address] [place] [address] Jan, Hyperlipidemia 272.4 ; HTN (hypertension) 401.9 ; Well adult exam V70.0 and BPH (benign prostatic hypertrophy) 600.00 Tony Greenwood III, MD [address] [place] [address] [place] [address] Jan, Tony Greenwood III, MD [address] [place] [address] [place] [address] Oct, Hyperlipidemia 272.4 and HTN (hypertension) 401.9 Tony Greenwood III, MD [address] [place] [address] [place] [address] Oct, Tony Greenwood III, MD [address] [place] [address] [place] [address] Sep, Bursitis of foot 726.79 Tony Greenwood III, MD [address] [place] [address] [place] [address] Jun, IMMUNIZATIONS Vaccine Route Administration Date Status Pneumococcal Unknown Apr 18, 2016 Administered Influenza Unknown Apr 16, 2016 Administered Influenza Unknown Apr 26, 2015 Administered Rabies, intramuscular Unknown Apr 02, 2006 Admin istered Pneumococcal Unknown May 08, 2012 Administered Influenza Unknown May 08, 2012 Administered SOCIAL HISTORY Qualifiers Date Former Smoker REASON FOR REFERRAL FUNCTIONAL STATUS PLAN OF CARE Activity Details VITAL SIGNS Height 76 in 2022-12-18 Height 76 in 2022-10-05 Height 76 in 2022-08-10 Height 76 in 2022-05-21 Height 76 in 2022-03-02 Height 76 in 2022-01-12 Height 76 in 2021-10-13 Height 76 in 2021-06-26 Height 76 in 2021-03-28 Height 76 in 2020-09-28 Height 76 in 2020-05-18 Height 76 in 2020-03-04 Height 76 in 2019-08-19 Height 76 in 2019-05-13 Height 76 in 2019-02-18 Height 76 in 2018-10-15 Height 76 in 2018-06-24 Height 76 in 2018-02-11 Height 76 in 2017-11-05 Height 76 in 2017-10-01 Height 76 in 2017-09-23 Height 76 in 2017-06-28 Height 76 in 2017-04-19 Height 76 in 2017-03-22 Height 76 in 2016-11-16 Height 76 in 2016-08-10 Height 76 in 2016-05-11 Height 76 in 2015-11-25 Height 76 in 2015-08-12 Height 76 in 2015-05-12 Height 76 in 2014-12-27 Height 76 in 2014-08-20 Height 76 in 2014-05-14 Height 76 in 2014-02-05 Height N/A in 2013-06-19 Height N/A in 2013-01-09 Height N/A in 2012-08-01 Height N/A in 2012-05-02 Height N/A in 2012-01-30 Height N/A in 2011-10-31 Height 76 in 2011-10-05 Weight 220 lbs 2022-12-18 Weight 231 lbs 2022-10-05 Weight 233 lbs 2022-08-10 Weight 230 lbs 2022-05-21 Weight 230 lbs 2022-03-02 Weight 226 lbs 2022-01-12 Weight 235 lbs 2021-10-13 Weight 231 lbs 2021-06-26 Weight 226 lbs 2021-03-28 Weight 234 lbs 2020-09-28 Weight 238 lbs 2020-05-18 Weight 230 lbs 2020-03-04 Weight 229 lbs 2019-08-19 Weight 232 lbs 2019-05-13 Weight 228 lbs 2019-02-18 Weight 231 lbs 2018-10-15 Weight 227 lbs 2018-06-24 Weight 229 lbs 2018-02-11 Weight 227 lbs 2017-11-05 Weight 224 lbs 2017-10-01 Weight 228 lbs 2017-09-23 Weight 225 lbs 2017-06-28 Weight 226 lbs 2017-04-19 Weight 225 lbs 2017-03-22 Weight 226 lbs 2016-11-16 Weight 216 lbs 2016-08-10 Weight 223 lbs 2016-05-11 Weight 221 lbs 2015-11-25 Weight 225 lbs 2015-08-12 Weight 223 lbs 2015-05-12 Weight 223 lbs 2014-12-27 Weight 229 lbs 2014-08-20 Weight 227 lbs 2014-05-14 Weight 224 lbs 2014-02-05 Weight 225 lbs 2013-06-19 Weight 225 lbs 2013-01-09 Weight 228 lbs 2012-08-01 Weight 219 lbs 2012-05-02 Weight 214 lbs 2012-01-30 Weight 219 lbs 2011-10-31 Weight 218 lbs 2011-10-05 BMI 26.78 kg/m2 2022-12-18 BMI 28.12 kg/m2 2022-10-05 BMI 28.36 kg/m2 2022-08-10 BMI 27.99 kg/m2 2022-05-21 BMI 27.99 kg/m2 2022-03-02 BMI 27.51 kg/m2 2022-01-12 BMI 28.60 kg/m2 2021-10-13 BMI 28.12 kg/m2 2021-06-26 BMI 27.51 kg/m2 2021-03-28 BMI 28.48 kg/m2 2020-09-28 BMI 28.97 kg/m2 2020-05-18 BMI 27.99 kg/m2 2020-03-04 BMI 27.87 kg/m2 2019-08-19 BMI 28.24 kg/m2 2019-05-13 BMI 27.75 kg/m2 2019-02-18 BMI 28.12 kg/m2 2018-10-15 BMI 27.63 kg/m2 2018-06-24 BMI 27.87 kg/m2 2018-02-11 BMI 27.63 kg/m2 2017-11-05 BMI 27.26 kg/m2 2017-10-01 BMI 27.75 kg/m2 2017-09-23 BMI 27.38 kg/m2 2017-06-28 BMI 27.51 kg/m2 2017-04-19 BMI 27.38 kg/m2 2017-03-22 BMI 27.51 kg/m2 2016-11-16 BMI 26.29 kg/m2 2016-08-10 BMI 27.14 kg/m2 2016-05-11 BMI 26.90 kg/m2 2015-11-25 BMI 27.38 kg/m2 2015-08-12 BMI 27.14 kg/m2 2015-05-12 BMI 27.14 kg/m2 2014-12-27 BMI 27.87 kg/m2 2014-08-20 BMI 27.63 kg/m2 2014-05-14 BMI 27.26 kg/m2 2014-02-05 BMI 27.38 kg/m2 2013-06-19 BMI 27.38 kg/m2 2013-01-09 BMI 27.75 kg/m2 2012-08-01 BMI 26.65 kg/m2 2012-05-02 BMI 26.05 kg/m2 2012-01-30 BMI 26.65 kg/m2 2011-10-31 BMI 26.53 kg/m2 2011-10-05 Heart Rate 77 /min 2022-12-18 Heart Rate 74 /min 2022-10-05 Heart Rate 84 /min 2022-08-10 Heart Rate 80 /min 2022-05-21 Heart Rate 80 /min 2022-03-02 Heart Rate 78 /min 2022-01-12 Heart Rate 78 /min 2021-10-13 Heart Rate 84 /min 2021-06-26 Heart Rate 83 /min 2021-03-28 Heart Rate 84 /min 2020-09-28 Heart Rate 83 /min 2020-05-18 Heart Rate 80 /min 2020-03-04 Heart Rate 75 /min 2019-08-19 Heart Rate 80 /min 2019-05-13 Heart Rate 100 /min 2019-02-18 Heart Rate 82 /min 2018-10-15 Heart Rate 93 /min 2018-06-24 Heart Rate 77 /min 2018-02-11 Heart Rate 92 /min 2017-11-05 Heart Rate 84 /min 2017-10-01 Heart Rate 95 /min 2017-09-23 Heart Rate 76 /min 2017-06-28 Heart Rate 61 /min 2017-04-19 Heart Rate 85 /min 2017-03-22 Heart Rate 76 /min 2016-11-16 Heart Rate 73 /min 2016-08-10 Heart Rate 80 /min 2016-05-11 Heart Rate 81 /min 2015-11-25 Heart Rate 76 /min 2015-08-12 Heart Rate 95 /min 2015-05-12 Heart Rate 83 /min 2014-12-27 Heart Rate 86 /min 2014-08-20 Heart Rate 78 /min 2014-05-14 Heart Rate 74 /min 2014-02-05 Heart Rate 73 /min 2013-06-19 Heart Rate 80 /min 2013-01-09 Heart Rate 80 /min 2012-08-01 Heart Rate 72 /min 2012-05-02 Heart Rate 84 /min 2012-01-30 Heart Rate 80 /min 2011-10-31 Heart Rate 92 /min 2011-10-05 Temperature 96.8 degrees Fahrenheit Temperature 97.0 degrees Fahrenheit Temperature 97.0 degrees Fahrenheit Temperature 97.1 degrees Fahrenheit Temperature 96.7 degrees Fahrenheit Temperature 96.8 degrees Fahrenheit Temperature 97.0 degrees Fahrenheit Temperature 97.1 degrees Fahrenheit Temperature 96.9 degrees Fahrenheit Temperature 96.7 degrees Fahrenheit Temperature 97.5 degrees Fahrenheit Temperature 97.6 degrees Fahrenheit Oximetry 94 % 2018-02-11 Blood pressure systolic 128 mm Hg Blood pressure diastolic 74 mm Hg 2022-12 MEDICATIONS Medication Instructions Dosage Frequency Start Date End Date Duration Status Aspirin 325 MG Orally Once a day 1 tablet 24h Active Imdur Active Atorvastatin Calcium 20 MG Orally Once a day 1 tablet 24h Apr, Active Plavix 75 MG Orally Once a day 1 tablet 24h Active Gabapentin 100 MG Orally three times a day 1 capsule 8h 19 Aug, 2022 Active Wellbutrin XL 300 MG Orally Once a day 1 tablet in the morning 24h Jan, Active Pantoprazole Sodium 40 MG Orally Once a day 1 tablet 24h Feb, Active Doxycycline Hyclate 100 MG Activ e CeleBREX 100 MG Orally Once a day 1 capsule with food 24h Active Trelegy Ellipta 200-62.5-25 MCG/ACT Active Finasteride 5 MG TAKE 1 TABLET DAILY IN THE MORNING Active Simvastatin 40 MG Orally Once a day 1 tablet in the evening 24h Active Metoprolol Succinate ER 50 MG TAKE 1 TABLET BY MOUTH DAILY Active Viagra 100 MG Orally Once a day 1 tablet as needed 24h Apr, Active Fluticasone Propionate 0.005 % Externally Twice a day 1 application to affected area 12h Jan, Active PROCEDURES Procedure Date Ordered Result Body Site MEASURE BLOOD OXYGEN LEVEL February 11, 2018 PHONE E/M BY PHYS 21-30 MIN November 22, 2021 PHONE E/M BY PHYS 21-30 MIN December 06, 2021 OCCULT BLOOD, FECES, SINGLE January 12, 2022 OCCULT BLOOD, FECES, SINGLE Apr 19, 2017 URINE-NO MICRO January 12, 2022 PHONE E/M BY PHYS 21-30 MIN Aug 28, 2021 RESULTS Name Result Date Reference Range Complete Blood Count Auto Diff 2022-12-18 White Blood Count 6.8 4.8-10.8 Red Blood Count 4.57 4.60-5.80 Hemoglobin 14.4 14.0-18.0 Hematocrit 44.7 42.0-52.0 Mean Corpuscular Volume 97.8 80.0 -98.0 Mean Corpuscular Hemoglobin 31.5 27.0-33.0 Mean Corpuscular HGB Conc 32.2 31 .0-36.0 Red Cell Distribution Width 13.3 11.0-16.0 Platelet Count 264 160-400 Mean Platelet Volume 9.3 9.4-12. 4 Neutrophils Percent Auto 65.0 45- 73 Imm Gran Pct Auto 0.3 0.0-0.4 Lymphocytes Percent Auto 23.0 20- 40 Monocytes Percent Auto 8.4 2-11 Eosinophils Percent Auto 2.7 0-4 Basophils Percent Auto 0.6 0-2 NRBC Pct Auto 0.0 0.0-0.2 Neutrophils Absolute Auto 4.4 2. 0-8.3 Imm Gran Abs Auto 0.02 0.00-0.03 Lymphocytes Absolute Auto 1.6 1. 2-4.9 Monocytes Absolute Auto 0.6 0.1- 1.2 Eosinophils Absolute Auto 0.2 0. 0-0.4 Basophils Absolute Auto 0.0 0.0- 0.2 NRBC Abs Auto 0.000 0.0-0.012 Comprehensive [place]. Panel Fast 2022-12-18 Sodium 143 135-145 Potassium 5.4 3.3-5.1 Chloride 109 96-108 Carbon Dioxide 28 22-29 Anion Gap 11 12-20 Blood Urea Nitrogen 21 9-16 Creatinine 1.20 0.5-1.4 Estimated Glomerular Filt Rate 58 Glucose Fasting 95 60-99 Calcium 9.8 8.4-10.2 Bilirubin Total 1.2 0.0-1.0 Aspartate Amino Transferase 21 5-37 Alanine Aminotransferase 17 0-4 0 Total Protein 7.3 6.5-8.0 Albumin Level 4.4 3.5-5.0 Alkaline Phosphatase 92 39-117 Lipid Panel 2022-12-18 Triglycerides 113 Cholesterol 124 LDL Cholesterol Calculated 66 HDL Cholesterol 36 Prostate Specific Antigen 2022-12-18 Prostate Specific Antigen 1.49 <0 .05-4.0 Complete Blood Count Auto Diff 2022-08-10 White Blood Count 7.2 4.8-10.8 Red Blood Count 4.18 4.60-5.80 Hemoglobin 13.8 14.0-18.0 Hematocrit 41.3 42.0-52.0 Mean Corpuscular Volume 98.8 80.0 -98.0 Mean Corpuscular Hemoglobin 33.0 27.0-33.0 Mean Corpuscular HGB Conc 33.4 31 .0-36.0 Red Cell Distribution Width 12.9 11.0-16.0 Platelet Count 236 160-400 Mean Platelet Volume 8.9 9.4-12. 4 Neutrophils Percent Auto 54.2 45- 73 Imm Gran Pct Auto 0.4 0.0-0.4 Lymphocytes Percent Auto 29.2 20- 40 Monocytes Percent Auto 11.7 2-11 Eosinophils Percent Auto 3.5 0-4 Basophils Percent Auto 1.0 0-2 NRBC Pct Auto 0.0 0.0-0.2 Neutrophils Absolute Auto 3.9 2. 0-8.3 Imm Gran Abs Auto 0.03 0.00-0.03 Lymphocytes Absolute Auto 2.1 1. 2-4.9 Monocytes Absolute Auto 0.8 0.1- 1.2 Eosinophils Absolute Auto 0.3 0. 0-0.4 Basophils Absolute Auto 0.1 0.0- 0.2 NRBC Abs Auto 0.000 0.0-0.012 Comprehensive [place]. Panel Fast 2022-08-10 Sodium 145 135-145 Potassium 4.7 3.3-5.1 Chloride 110 96-108 Carbon Dioxide 29 22-29 Anion Gap 11 12-20 Blood Urea Nitrogen 18 9-16 Creatinine 1.18 0.5-1.4 Estimated Glomerular Filt Rate 59 Glucose Fasting 91 60-99 Calcium 9.3 8.4-10.2 Bilirubin Total 1.0 0.0-1.0 Aspartate Amino Transferase 22 5-37 Alanine Aminotransferase 20 0-4 0 Total Protein 6.7 6.5-8.0 Albumin Level 4.1 3.5-5.0 Alkaline Phosphatase 86 39-117 Lipid Panel 2022-08-10 Triglycerides 123 Cholesterol 110 LDL Cholesterol Calculated 51 HDL Cholesterol 35 Prostate Specific Antigen 2022-08-10 Prostate Specific Antigen 1.61 <0 .05-4.0 Complete Blood Count Auto Diff 2022-01-12 White Blood Count 5.9 4.8-10.8 Red Blood Count 3.90 4.60-5.80 Hemoglobin 12.9 14.0-18.0 Hematocrit 38.0 42.0-52.0 Mean Corpuscular Volume 97.4 80.0 -98.0 Mean Corpuscular Hemoglobin 33.1 27.0-33.0 Mean Corpuscular HGB Conc 33.9 31 .0-36.0 Red Cell Distribution Width 13.0 11.0-16.0 Platelet Count 220 160-400 Mean Platelet Volume 9.3 9.4-12. 4 Neutrophils Percent Auto 63.1 45- 73 Imm Gran Pct Auto 0.5 0.0-0.4 Lymphocytes Percent Auto 21.2 20- 40 Monocytes Percent Auto 11.0 2-11 Eosinophils Percent Auto 3.9 0-4 Basophils Percent Auto 0.3 0-2 NRBC Pct Auto 0.0 0.0-0.2 Neutrophils Absolute Auto 3.7 2. 0-8.3 Imm Gran Abs Auto 0.03 0.00-0.03 Lymphocytes Absolute Auto 1.3 1. 2-4.9 Monocytes Absolute Auto 0.7 0.1- 1.2 Eosinophils Absolute Auto 0.2 0. 0-0.4 Basophils Absolute Auto 0.0 0.0- 0.2 NRBC Abs Auto 0.000 0.0-0.012 Prothrombin Time INR 2022-01-12 Prothrombin Time 11.9 10.0-13.1 INTERNATIONAL NORM RATIO 1.0 0.9 -1.1 Comprehensive [place]. Panel Fast 2022-01-12 Sodium 142 135-145 Potassium 4.5 3.3-5.1 Chloride 110 96-108 Carbon Dioxide 24 22-29 Anion Gap 13 12-20 Blood Urea Nitrogen 36 9-16 Creatinine 1.47 0.5-1.4 Estimated Glomerular Filt Rate 46 Glucose Fasting 101 60-99 Calcium 9.1 8.4-10.2 Bilirubin Total 0.8 0.0-1.0 Aspartate Amino Transferase 20 5-37 Alanine Aminotransferase 20 0-4 0 Total Protein 6.4 6.5-8.0 Albumin Level 3.9 3.5-5.0 Alkaline Phosphatase 82 39-117 Lipid Panel 2022-01-12 Triglycerides 253 Cholesterol 108 LDL Cholesterol Calculated 30 HDL Cholesterol 28 URINE DIP STICK 2022-01-12 SG 1.020 pH 6 SALOME neg NIT neg PRO trace GLU normal KET neg UBG normal ANGEL neg BLD neg Menstrating n/a Erythrocyte Sedimentation Rate 2021-06-26 Erythrocyte Sedimentation Rate 7 0-15 Basic Metabolic Panel Fasting 2021-06-26 Sodium 142 135-145 Potassium 4.7 3.3-5.1 Chloride 107 96-108 Carbon Dioxide 27 22-29 Anion Gap 13 12-20 Blood Urea Nitrogen 22 9-16 Creatinine 1.31 0.5-1.4 Estimated Glomerular Filt Rate 53 Glucose Fasting 94 60-99 Calcium 9.8 8.4-10.2 Vitamin B12 2021-06-26 Vitamin B12 1259 200-900 Folate 2021-06-26 Folate >20.0 >or = 4.0 Immunofixation Pnl, Serum 2021-06-26 IgG [id number] IgA 307 70-320 IgM 123 50-300 Immunofixation Interpretation SEE NOTE Rheumatoid Factor 2021-06-26 Rheumatoid Factor < 15.0 <15.0 Syphilis Screen 2021-06-26 Syphilis Screen Nonreactive Nonreactive Hemoglobin A1c 2021-06-26 Hemoglobin A1c % 5.1 Estimated Average Glucose 100 Lyme IgG/IgM w/reflex to WB 2021-06-26 Lyme Abs Screen <0.90 Lyme Blot TNP Lipid Panel 2021-03-28 Triglycerides 181 Cholesterol 143 LDL Cholesterol Calculated 70 HDL Cholesterol 37 Complete Blood Count Auto Diff 2021-03-28 White Blood Count 6.7 4.8-10.8 Red Blood Count 4.49 4.60-5.80 Hemoglobin 14.5 14.0-18.0 Hematocrit 42.4 42-52 Mean Corpuscular Volume 94.4 80-9 8 Mean Corpuscular Hemoglobin 32.3 27.0-33.0 Mean Corpuscular HGB Conc 34.2 31 .0-36.0 Red Cell Distribution Width 12.7 11.0-16.0 Platelet Count 239 160-400 Mean Platelet Volume 8.9 9.4-12. 4 Neutrophils Percent Auto 59.2 45- 73 Imm Gran Pct Auto 0.3 0.0-0.4 Lymphocytes Percent Auto 25.9 20- 40 Monocytes Percent Auto 11.5 2-11 Eosinophils Percent Auto 2.7 0-4 Basophils Percent Auto 0.4 0-2 NRBC Pct Auto 0.0 0.0-0.2 Neutrophils Absolute Auto 4.0 2. 0-8.3 Imm Gran Abs Auto 0.02 0.00-0.03 Lymphocytes Absolute Auto 1.7 1. 2-4.9 Monocytes Absolute Auto 0.8 0.1- 1.2 Eosinophils Absolute Auto 0.2 0. 0-0.4 Basophils Absolute Auto 0.0 0.0- 0.2 NRBC Abs Auto 0.000 0.0-0.012 Prothrombin Time INR 2021-03-28 Prothrombin Time 11.8 9.9-13.0 INTERNATIONAL NORM RATIO 1.0 0.9 -1.1 Comprehensive [place]. Panel Fast 2021-03-28 Sodium 141 135-145 Potassium 4.9 3.3-5.1 Chloride 107 96-108 Carbon Dioxide 25 22-29 Anion Gap 14 12-20 Blood Urea Nitrogen 20 9-16 Creatinine 1.47 0.5-1.4 Estimated Glomerular Filt Rate 46 Glucose Fasting 92 60-99 Calcium 9.8 8.4-10.2 Bilirubin Total 1.9 0.0-1.0 Aspartate Amino Transferase 24 5-37 Alanine Aminotransferase 20 0-4 0 Total Protein 6.8 6.5-8.0 Albumin Level 4.3 3.5-5.0 Alkaline Phosphatase 79 39-117 Prostate Specific Antigen 2021-03-28 Prostate Specific Antigen 1.17 <0 .05-4.0 Complete Blood Count Auto Diff 2020-09-27 White Blood Count 6.3 4.8-10.8 Red Blood Count 4.08 4.60-5.80 Hemoglobin 13.3 14.0-18.0 Hematocrit 40.5 42-52 Mean Corpuscular Volume 99.3 80-9 8 Mean Corpuscular Hemoglobin 32.6 27.0-33.0 Mean Corpuscular HGB Conc 32.8 31 .0-36.0 Red Cell Distribution Width 12.7 11.0-16.0 Platelet Count 244 160-400 Mean Platelet Volume 9.3 9.4-12. 4 Neutrophils Percent Auto 61.9 45- 73 Imm Gran Pct Auto 0.5 0.0-0.4 Lymphocytes Percent Auto 22.6 20- 40 Monocytes Percent Auto 11.8 2-11 Eosinophils Percent Auto 2.7 0-4 Basophils Percent Auto 0.5 0-2 NRBC Pct Auto 0.0 0.0-0.2 Neutrophils Absolute Auto 3.9 2. 0-8.3 Imm Gran Abs Auto 0.03 0.00-0.03 Lymphocytes Absolute Auto 1.4 1. 2-4.9 Monocytes Absolute Auto 0.7 0.1- 1.2 Eosinophils Absolute Auto 0.2 0. 0-0.4 Basophils Absolute Auto 0.0 0.0- 0.2 NRBC Abs Auto 0.000 0.0-0.012 Comprehensive [place]. Panel Fast 2020-09-27 Sodium 140 135-145 Potassium 4.7 3.3-5.1 Chloride 106 96-108 Carbon Dioxide 30 22-29 Anion Gap 9 12-20 Blood Urea Nitrogen 27 9-16 Creatinine 1.46 0.5-1.4 Estimated Glomerular Filt Rate 47 Glucose Fasting 108 60-99 Calcium 9.0 8.4-10.2 Bilirubin Total 1.3 0.0-1.0 Aspartate Amino Transferase 20 5-37 Alanine Aminotransferase 17 0-4 0 Total Protein 6.6 6.5-8.0 Albumin Level 4.2 3.5-5.0 Alkaline Phosphatase 81 39-117 Lipid Panel 2020-09-27 Triglycerides 116 Cholesterol 124 LDL Cholesterol Calculated 65 HDL Cholesterol 36 Prostate Specific Antigen Scr 2020-09-27 Prostate Specific Antigen Scr 1.07 <0.05-4.0 CT chest wo con 2020-09-14 XR wrist LT min 3V 2020-09-14 XR PELVIS 2020-03-14 CHEST 2 VIEWS 2020-03-05 CBC WITH AUTO DIFF 2019-08-19 WBC 6.3 4.8-10.8 RBC 4.6 4.5-5.5 HEMOGLOBIN 14.5 13.5-17.5 HEMATOCRIT 43.0 42-54 MCV 94.5 79-98 MCH 31.9 27-32 MCHC 33.7 32-37 RDW 13.0 11-15 PLT COUNT 233 130-400 MEAN PLATELET VOLUME 9.4 7-11 NEUT % 56.8 LYMPH % 26.8 MONO % 12.5 EOS % 3.0 BASO % 0.6 ABSOLUTE NEUT 3.58 1.5-7.0 CREATINE KINASE (CK) 2019-08-19 CREATINE KINASE (CK) 127 22-269 COMPREHENSIVE METABOLIC PANEL 2019-08-19 GLUCOSE 89 70-100 BUN 20 5-25 CREAT 1.44 0.7-1.3 GLOMERULAR FILTRATION RATE 47 SODIUM 139 135-145 POTASSIUM 4.8 3.5-5.5 CHLORIDE 108 96-110 CO2 28 21-32 ANION GAP 3 3-11 CALCIUM 9.5 8.5-10.5 TOTAL PROTEIN 7.0 6.0-8.0 ALBUMIN 3.6 3.2-5.0 BILI,TOTAL 1.3 0.0-1.4 SGOT 19 10-42 SGPT 28 10-60 ALK PHOS 100 42-121 LIPID PROFILE 2019-08-19 CHOLESTEROL 122 0-200 TRIGLYCERIDES 214 0-150 HDL CHOLESTEROL 36 >40 LDL CALCULATED 44 0-100 TC-HDLC RATIO 3.4 0-4.4 PROSTATIC SPECIFIC ANTIGEN SCR 2019-08-19 PROSTATIC SPECIFIC ANTIGEN SCR 1.4 0.0-4.0 PT/INR 2019-08-19 PROTHROMBIN TIME 12.6 10.6-13.9 INR 1.06 CBC WITH AUTO DIFF 2018-10-22 WBC 8.1 4.8-10.8 RBC 4.4 4.5-5.5 HEMOGLOBIN 13.9 13.5-17.5 HEMATOCRIT 41.2 42-54 MCV 94.7 79-98 MCH 32.0 27-32 MCHC 33.7 32-37 RDW 13.4 11-15 PLT COUNT 229 130-400 MEAN PLATELET VOLUME 9.4 7-11 NEUT % 59.1 LYMPH % 26.7 MONO % 10.5 EOS % 3.0 BASO % 0.5 ABSOLUTE NEUT 4.79 1.5-7.0 COMPREHENSIVE METABOLIC PANEL 2018-10-22 GLUCOSE 76 70-100 BUN 20 5-25 CREAT 1.37 0.7-1.3 GLOMERULAR FILTRATION RATE 50 SODIUM 141 133-145 POTASSIUM 4.6 3.5-5.5 CHLORIDE 108 96-110 CO2 29 21-32 ANION GAP 4 3-11 CALCIUM 9.1 8.5-10.5 TOTAL PROTEIN 7.3 6.0-8.0 ALBUMIN 3.9 3.2-5.0 BILI,TOTAL 1.4 0.0-1.4 SGOT 28 10-42 SGPT 32 10-60 ALK PHOS 103 42-121 LIPID PROFILE 2018-10-22 CHOLESTEROL 118 0-200 TRIGLYCERIDES 107 0-150 HDL CHOLESTEROL 39 >40 LDL CALCULATED 58 0-100 TC-HDLC RATIO 3.0 0-4.4 PROSTATIC SPECIFIC ANTIGEN 2018-10-22 PROSTATIC SPECIFIC ANTIGEN 1.5 0 .0-4.0 FREE T4 2018-10-22 FREE T4 1.01 0.70-1.80 TSH 2018-10-22 TSH 1.01 0.40-4.00 CBC WITH AUTO DIFF 2018-06-24 WBC 6.2 4.8-10.8 RBC 4.3 4.5-5.5 HEMOGLOBIN 13.3 13.5-17.5 HEMATOCRIT 39.5 42-54 MCV 92.3 79-98 MCH 31.1 27-32 MCHC 33.7 32-37 RDW 13.3 11-15 PLT COUNT 246 130-400 MEAN PLATELET VOLUME 9.2 7-11 NEUT % 59.2 LYMPH % 24.2 MONO % 13.2 EOS % 2.3 BASO % 0.8 ABSOLUTE NEUT 3.67 1.5-7.0 COMPREHENSIVE METABOLIC PANEL 2018-06-24 GLUCOSE 101 70-100 BUN 19 5-25 CREAT 1.68 0.7-1.3 GLOMERULAR FILTRATION RATE 40 SODIUM 141 133-145 POTASSIUM 4.4 3.5-5.5 CHLORIDE 106 96-110 CO2 29 21-32 ANION GAP 6 3-11 CALCIUM 9.1 8.5-10.5 TOTAL PROTEIN 6.8 6.0-8.0 ALBUMIN 3.8 3.2-5.0 BILI,TOTAL 0.8 0.0-1.4 SGOT 27 10-42 SGPT 25 10-60 ALK PHOS 101 42-121 LIPID PROFILE 2018-06-24 CHOLESTEROL 128 0-200 TRIGLYCERIDES 184 0-150 HDL CHOLESTEROL 34 >40 LDL CALCULATED 58 0-100 TC-HDLC RATIO 3.8 0-4.4 PROSTATIC SPECIFIC ANTIGEN 2018-06-24 PROSTATIC SPECIFIC ANTIGEN 1.0 0 .0-4.0 CBC WITH AUTO DIFF 2018-02-11 WBC 6.5 4.8-10.8 RBC 4.3 4.5-5.5 HEMOGLOBIN 13.3 13.5-17.5 HEMATOCRIT 39.9 42-54 MCV 92.8 79-98 MCH 30.9 27-32 MCHC 33.3 32-37 RDW 13.5 11-15 PLT COUNT 231 130-400 MEAN PLATELET VOLUME 9.4 7-11 NEUT % 58.1 LYMPH % 24.8 MONO % 11.5 EOS % 4.6 BASO % 0.5 ABSOLUTE NEUT 3.78 1.5-7.0 COMPREHENSIVE METABOLIC PANEL 2018-02-11 GLUCOSE 88 70-100 BUN 20 5-25 CREAT 1.40 0.7-1.3 GLOMERULAR FILTRATION RATE 49 SODIUM 142 133-145 POTASSIUM 4.6 3.5-5.5 CHLORIDE 107 96-110 CO2 28 21-32 ANION GAP 7 3-11 CALCIUM 8.9 8.5-10.5 TOTAL PROTEIN 6.9 6.0-8.0 ALBUMIN 3.6 3.2-5.0 BILI,TOTAL 0.8 0.0-1.4 SGOT 29 10-42 SGPT 29 10-60 ALK PHOS 98 42-121 LIPID PROFILE 2018-02-11 CHOLESTEROL 139 0-200 TRIGLYCERIDES 259 0-150 HDL CHOLESTEROL 36 >40 LDL CALCULATED 52 0-100 TC-HDLC RATIO 3.9 0-4.4 PROSTATIC SPECIFIC ANTIGEN 2018-02-11 PROSTATIC SPECIFIC ANTIGEN 1.0 0 .0-4.0 CTA CHEST WOW RECON 2017-11-01 BASIC METABOLIC PROFILE RANDOM 2017-10-30 NA 143 135-145 K 4.8 3.3-5.1 CL 109 96-108 CO2 27 22-29 ANION GAP 12 12-20 GLUCOSE,RANDOM 105 60-115 BUN 20 9-16 CREATININE 1.36 0.5-1.4 ESTIMATED GFR 51 CALCIUM 9.5 8.4-10.2 CBC w/o DIFF 2017-10-30 WBC 6.9 4.8-10.8 RBC 4.53 4.60-5.80 HEMOGLOBIN 14.3 14.0-18.0 HEMATOCRIT 41.8 42-52 MCV 92.3 80-98 MCH 31.7 27.0-33.0 MCHC 34.3 31.0-36.0 PLATELET COUNT 247 160-400 RDW 12.8 11.0-16.0 PROTHROMBIN TIME (PT, INR) 2017-10-30 INTERNATIONAL NORM. RATIO 1.0 SE E NOTE PROTHROMBIN TIME 11.5 10.2-12.9 EYE CULTURE 2017-09-23 Comments EYE CULTURE [facility] [address] [place] [address] AMYLASE 2017-06-28 AMYLASE 56 25-115 CBC WITH AUTO DIFF 2017-06-28 WBC 5.9 4.8-10.8 RBC 4.9 4.5-5.5 HEMOGLOBIN 15.1 13.5-17.5 HEMATOCRIT 46.2 42-54 MCV 94.1 79-98 MCH 30.8 27-32 MCHC 32.7 32-37 RDW 12.8 11-15 PLT COUNT 235 130-400 MEAN PLATELET VOLUME 9.5 7-11 NEUT % 52.7 LYMPH % 30.5 MONO % 10.7 EOS % 5.2 BASO % 0.7 ABSOLUTE NEUT 3.12 1.5-7.0 LIPASE 2017-06-28 LIPASE 97 73-393 MYOCARDIAL PERF MULTIPLE 2017-06-26 VITAMIN B12 2016-11-13 VITAMIN B12 1001 250-900 CBC WITH AUTO DIFF 2016-11-13 WBC 6.9 4.8-10.8 RBC 4.5 4.5-5.5 HEMOGLOBIN 14.1 13.5-17.5 HEMATOCRIT 43.0 42-54 MCV 96.2 79-98 MCH 31.5 27-32 MCHC 32.8 32-37 RDW 13.1 11-15 PLT COUNT 220 130-400 MEAN PLATELET VOLUME 9.3 7-11 NEUT % 52.3 LYMPH % 30.9 MONO % 10.9 EOS % 4.6 BASO % 0.9 ABSOLUTE NEUT 3.61 1.5-7.0 COMPREHENSIVE METABOLIC PANEL 2016-11-13 GLUCOSE 77 70-100 BUN 19 5-25 CREAT 1.42 0.7-1.3 GLOMERULAR FILTRATION RATE 49 SODIUM 142 133-145 POTASSIUM 4.3 3.5-5.5 CHLORIDE 106 96-110 CO2 29 21-32 ANION GAP 7 3-11 CALCIUM 9.5 8.5-10.5 TOTAL PROTEIN 7.4 6.0-8.0 ALBUMIN 4.0 3.2-5.0 BILI,TOTAL 1.0 0.0-1.4 SGOT 44 10-42 SGPT 42 10-60 ALK PHOS 95 42-121 ESR 2016-11-13 ESR 10 0-20 FOLATE 2016-11-13 FOLATE 18.6 2.8-17.0 LIPID PROFILE 2016-11-13 CHOLESTEROL 167 0-200 TRIGLYCERIDES 135 0-150 HDL CHOLESTEROL 50 >40 LDL CALCULATED 90 0-100 TC-HDLC RATIO 3.3 0-4.4 MAGNESIUM 2016-11-13 MAGNESIUM 2.6 1.9-2.6 PROSTATIC SPECIFIC ANTIGEN 2016-11-13 PROSTATIC SPECIFIC ANTIGEN 1.8 0 .0-4.0 FREE T4 2016-11-13 FREE T4 1.14 0.70-1.80 TESTOSTERONE 2016-11-13 TESTOSTERONE [phone] TSH 2016-11-13 TSH 1.04 0.40-4.00 CBC WITH AUTO DIFF 2016-08-10 WBC 7.5 4.8-10.8 RBC 4.4 4.5-5.5 HEMOGLOBIN 13.7 13.5-17.5 HEMATOCRIT 42.3 42-54 MCV 96.6 79-98 MCH 31.3 27-32 MCHC 32.4 32-37 RDW 12.9 11-15 PLT COUNT 249 130-400 MEAN PLATELET VOLUME 9.2 7-11 NEUT % 56.8 LYMPH % 30.9 MONO % 9.3 EOS % 1.9 BASO % 0.7 ABSOLUTE NEUT 4.29 1.5-7.0 COMPREHENSIVE METABOLIC PANEL 2016-08-10 GLUCOSE 76 70-100 BUN 18 5-25 CREAT 1.33 0.7-1.3 GLOMERULAR FILTRATION RATE 52 SODIUM 142 133-145 POTASSIUM 4.6 3.5-5.5 CHLORIDE 105 96-110 CO2 31 21-32 ANION GAP 6 3-11 CALCIUM 9.2 8.5-10.5 TOTAL PROTEIN 6.9 6.0-8.0 ALBUMIN 3.8 3.2-5.0 BILI,TOTAL 0.6 0.0-1.4 SGOT 20 10-42 SGPT 18 10-60 ALK PHOS 88 42-121 C-REACTIVE PROTEIN 2016-08-10 C-REACTIVE PROTEIN 0.46 <0.5 LIPID PROFILE 2016-08-10 CHOLESTEROL 133 0-200 TRIGLYCERIDES 117 0-150 HDL CHOLESTEROL 44 >40 LDL CALCULATED 66 0-100 TC-HDLC RATIO 3.0 0-4.4 PROSTATIC SPECIFIC ANTIGEN 2016-08-10 PROSTATIC SPECIFIC ANTIGEN 3.0 0 .0-4.0 CBC WITH AUTO DIFF 2016-04-24 WBC 7.1 4.8-10.8 RBC 4.4 4.5-5.5 HEMOGLOBIN 13.7 13.5-17.5 HEMATOCRIT 42.3 42-54 MCV 97.2 79-98 MCH 31.5 27-32 MCHC 32.4 32-37 RDW 12.9 11-15 PLT COUNT 214 130-400 MEAN PLATELET VOLUME 9.5 7-11 NEUT % 52.4 LYMPH % 30.7 MONO % 10.7 EOS % 5.2 BASO % 0.7 ABSOLUTE NEUT 3.72 1.5-7.0 COMPREHENSIVE METABOLIC PANEL 2016-04-24 GLUCOSE 86 70-100 BUN 21 5-25 CREAT 1.43 0.7-1.3 GLOMERULAR FILTRATION RATE 48 SODIUM 139 133-145 POTASSIUM 4.5 3.5-5.5 CHLORIDE 105 96-110 CO2 28 21-32 ANION GAP 6 3-11 CALCIUM 9.0 8.5-10.5 TOTAL PROTEIN 6.6 6.0-8.0 ALBUMIN 3.6 3.2-5.0 BILI,TOTAL 0.6 0.0-1.4 SGOT 22 10-42 SGPT 25 10-60 ALK PHOS 101 42-121 LIPID PROFILE 2016-04-24 CHOLESTEROL 135 0-200 TRIGLYCERIDES 163 0-150 HDL CHOLESTEROL 44 >40 LDL CALCULATED 59 0-100 TC-HDLC RATIO 3.1 0-4.4 PROSTATIC SPECIFIC ANTIGEN 2016-04-24 PROSTATIC SPECIFIC ANTIGEN 3.1 0 .0-4.0 CBC WITH AUTO DIFF 2015-08-12 WBC 8.1 4.8-10.8 RBC 4.6 4.5-5.5 HEMOGLOBIN 14.9 13.5-17.5 HEMATOCRIT 44.1 42-54 MCV 95.0 79-98 MCH 32.1 27-32 MCHC 33.8 32-37 RDW 13.3 11-15 PLT COUNT 242 130-400 MEAN PLATELET VOLUME 9.9 7-11 NEUT % 55 41-85 LYMPH % 33 15-48 MONO % 8 0-12 EOS % 4 0-5 BASO % 0 0-2 ABSOLUTE NEUT 4.4 >1.5 COMPREHENSIVE METABOLIC PANEL 2015-08-12 GLUCOSE 92 70-100 BUN 19 5-25 CREAT 1.35 0.7-1.3 GLOMERULAR FILTRATION RATE 52 SODIUM 144 133-145 POTASSIUM 5.1 3.5-5.5 CHLORIDE 105 96-110 CO2 34 21-32 ANION GAP 5 3-11 CALCIUM 9.4 8.5-10.5 TOTAL PROTEIN 6.9 6.0-8.0 ALBUMIN 4.2 3.2-5.0 BILI,TOTAL 0.6 0.0-1.4 SGOT 25 10-42 SGPT 18 10-60 ALK PHOS 93 42-121 LIPID PROFILE 2015-08-12 CHOLESTEROL 132 0-200 TRIGLYCERIDES 255 0-150 HDL CHOLESTEROL 36 >40 LDL CALCULATED 45 0-100 TC-HDLC RATIO 3.7 0-4.4 PROSTATIC SPECIFIC ANTIGEN SCR 2015-08-12 PROSTATIC SPECIFIC ANTIGEN SCR 4.1 0.0-4.0 CBC WITH AUTO DIFF 2015-04-12 WBC 8.0 4.8-10.8 RBC 4.6 4.5-5.5 HEMOGLOBIN 14.8 13.5-17.5 HEMATOCRIT 44.7 42-54 MCV 96.8 79-98 MCH 32.0 27-32 MCHC 33.1 32-37 RDW 13.6 11-15 PLT COUNT 217 130-400 MEAN PLATELET VOLUME 9.7 7-11 NEUT % 53 41-85 LYMPH % 36 15-48 MONO % 8 0-12 EOS % 3 0-5 BASO % 0 0-2 ABSOLUTE NEUT 4.2 >1.5 COMPREHENSIVE METABOLIC PANEL 2015-04-12 GLUCOSE 92 70-100 BUN 21 5-25 CREAT 1.56 0.7-1.3 GLOMERULAR FILTRATION RATE 44 SODIUM 143 133-145 POTASSIUM 4.7 3.5-5.5 CHLORIDE 106 96-110 CO2 32 21-32 ANION GAP 5 3-11 CALCIUM 9.5 8.5-10.5 TOTAL PROTEIN 6.8 6.0-8.0 ALBUMIN 4.2 3.2-5.0 BILI,TOTAL 0.7 0.0-1.4 SGOT 28 10-42 SGPT 22 10-60 ALK PHOS 90 42-121 PROSTATIC SPECIFIC ANTIGEN 2015-04-12 PROSTATIC SPECIFIC ANTIGEN 3.4 0 .0-4.0 SCREENING COLONOSCOPY CBC WITH AUTO DIFF 2014-08-20 WBC 7.8 4.8-10.8 RBC 4.7 4.5-5.5 HEMOGLOBIN 14.8 13.5-17.5 HEMATOCRIT 44.9 42-54 MCV 96.1 79-98 MCH 31.7 27-32 MCHC 33.0 32-37 RDW 13.1 11-15 PLT COUNT 212 130-400 MEAN PLATELET VOLUME 9.7 7-11 NEUT % 59 41-85 LYMPH % 30 15-48 MONO % 8 0-12 EOS % 3 0-5 BASO % 0 0-2 ABSOLUTE NEUT 4.6 >1.5 COMPREHENSIVE METABOLIC PANEL 2014-08-20 GLUCOSE 105 70-100 BUN 22 5-25 CREAT 1.35 0.7-1.3 GLOMERULAR FILTRATION RATE 52 SODIUM 143 133-145 POTASSIUM 5.1 3.5-5.5 CHLORIDE 107 96-110 CO2 32 21-32 ANION GAP 4 3-11 CALCIUM 9.1 8.5-10.5 TOTAL PROTEIN 6.5 6.0-8.0 ALBUMIN 4.3 3.2-5.0 BILI,TOTAL 0.7 0.0-1.4 SGOT 22 10-42 SGPT 21 10-60 ALK PHOS 94 42-121 LIPID PROFILE 2014-08-20 CHOLESTEROL 123 0-200 TRIGLYCERIDES 300 0-150 HDL CHOLESTEROL 30 >40 LDL CALCULATED 33 0-100 TC-HDLC RATIO 4.1 0-4.4 PROSTATIC SPECIFIC ANTIGEN 2014-08-20 PROSTATIC SPECIFIC ANTIGEN 3.9 0 .0-4.0 PROSTATIC SPECIFIC ANTIGEN SCR 2014-08-20 PROSTATIC SPECIFIC ANTIGEN SCR 3.9 0.0-4.0 PROFILE, FASTING (COMPREHENS STAR METABOLIC) ELECTROLYTES NA K CL CO2 ANION GAP FASTING BLOOD SUGAR BUN CREATININE CREATININE ESTIMATED GFR ESTIMATED CrCl PROTEIN, TOTAL ALBUMIN BILIRUBIN, TOTAL CALCIUM ALK. PHOS. GOT GPT LIPID PANEL CHOLESTEROL TRIGLYCERIDE HDL LDL PSA, TOTAL PSA, TOTAL CBC w DIFF MANUAL DIFF FLAG WBC WBC ABSOLUTE NEUTROPHIL COUNT ABSOLUTE NEUTROPHIL COUNT RBC HEMOGLOBIN HEMATOCRIT MCV MCH MCHC PLATELET COUNT PLATELET COUNT RDW NEUTROPHILS LYMPHOCYTES MONOCYTES EOSINOPHILS BASOPHILS ABSOLUTE NEUTROPHIL COUNT ABSOLUTE LYMPHOCYTE COUNT ABSOLUTE MONOCYTE COUNT ABSOLUTE EOSINOPHIL COUNT ABSOLUTE BASOPHIL COUNT IG/BANDS BAND FLAG BLAST FLAG VARIANT LYMPHS DFLT N DFLT L DFLT M DFLT E DFLT B LRI URI MPV FWBC FLAG NRBC FLAG RRBC FLAG NWBC FLAG MPV FLAG CBC WITH AUTO DIFF 2014-02-05 WBC 5.9 4.8-10.8 RBC 4.5 4.5-5.5 HEMOGLOBIN 14.5 13.5-17.5 HEMATOCRIT 42.6 42-54 MCV 95.5 79-98 MCH 32.5 27-32 MCHC 34.0 32-37 RDW 13.2 11-15 PLT COUNT 195 130-400 MEAN PLATELET VOLUME 10.1 7-11 NEUT % 61 41-85 LYMPH % 28 15-48 MONO % 7 0-12 EOS % 3 0-5 BASO % 1 0-2 ABSOLUTE NEUT 3.6 >1.5 COMPREHENSIVE METABOLIC PANEL 2014-02-05 GLUCOSE 125 70-100 BUN 22 5-25 CREAT 1.32 0.7-1.3 GLOMERULAR FILTRATION RATE 53 SODIUM 141 133-145 POTASSIUM 4.6 3.5-5.5 CHLORIDE 107 96-110 CO2 26 21-32 ANION GAP 8 3-11 CALCIUM 9.4 8.5-10.5 TOTAL PROTEIN 6.6 6.0-8.0 ALBUMIN 4.2 3.2-5.0 BILI,TOTAL 0.8 0.0-1.4 SGOT 32 10-42 SGPT 24 10-60 ALK PHOS 97 42-121 LIPID PROFILE 2014-02-05 CHOLESTEROL 109 0-200 TRIGLYCERIDES 93 0-150 HDL CHOLESTEROL 29 >40 LDL CALCULATED 62 0-100 TC-HDLC RATIO 3.8 0-4.4 PROSTATIC SPECIFIC ANTIGEN SCR 2014-02-05 PROSTATIC SPECIFIC ANTIGEN SCR 3.1 0.0-4.0 TOTAL T4 2014-02-05 TOTAL T4 7.3 4.5-10.9 TSH 2014-02-05 TSH 0.77 0.40-4.00 URINALYSIS 2014-02-05 GLUCOSE, (UA) NEGATIVE NEGATIVE BILIRUBIN, URINE NEGATIVE NEGATIVE KETONE, URINE NEGATIVE NEGATIVE SPECIFIC GRAVITY, URINE 1.019 1.00 3-1.030 BLOOD, URINE NEGATIVE NEGATIVE PH, URINE 6.0 5.0-8.0 PROTEIN, URINE NEGATIVE <= TRACE UROBILINOGEN, URINE 0.2 0.2-1.0 NITRITE, URINE NEGATIVE NEGATIVE LEUKOCYTE ESTERASE, URINE NEGATIVE NE GATIVE PROFILE, RANDOM (COMPREHENSI VE METABOLIC) ELECTROLYTES NA K CL CO2 ANION GAP GLUCOSE,RANDOM BUN CREATININE CREATININE ESTIMATED GFR ESTIMATED CrCl PROTEIN, TOTAL ALBUMIN BILIRUBIN, TOTAL CALCIUM ALK. PHOS. GOT GPT LIPID PANEL CHOLESTEROL TRIGLYCERIDE HDL LDL CBC w DIFF MANUAL DIFF FLAG WBC WBC ABSOLUTE NEUTROPHIL COUNT ABSOLUTE NEUTROPHIL COUNT RBC HEMOGLOBIN HEMATOCRIT MCV MCH MCHC PLATELET COUNT PLATELET COUNT RDW NEUTROPHILS LYMPHOCYTES MONOCYTES EOSINOPHILS BASOPHILS ABSOLUTE NEUTROPHIL COUNT ABSOLUTE LYMPHOCYTE COUNT ABSOLUTE MONOCYTE COUNT ABSOLUTE EOSINOPHIL COUNT ABSOLUTE BASOPHIL COUNT IG/BANDS BAND FLAG BLAST FLAG VARIANT LYMPHS DFLT N DFLT L DFLT M DFLT E DFLT B LRI URI MPV FWBC FLAG NRBC FLAG RRBC FLAG NWBC FLAG MPV FLAG URINALYSIS (UA) COLOR APPEARANCE,(UA) SPECIFIC GRAVITY LEUKOCYTES NITRITE PROTEIN,QUALITATIVE PH URINE BLOOD KETONES GLUCOSE MICROSCOPIC WBC MICROSCOPIC RBC EPITHELIAL CELLS BACTERIA RENAL EPITHELIAL CELLS CASTS MUCUS YEAST CRYSTALS OTHER,URINE PROFILE, RANDOM (COMPREHENSI VE METABOLIC) ELECTROLYTES NA K CL CO2 ANION GAP GLUCOSE,RANDOM BUN CREATININE CREATININE ESTIMATED GFR ESTIMATED CrCl PROTEIN, TOTAL ALBUMIN BILIRUBIN, TOTAL CALCIUM ALK. PHOS. GOT GPT LIPID PANEL CHOLESTEROL TRIGLYCERIDE HDL LDL CBC w DIFF MANUAL DIFF FLAG WBC WBC ABSOLUTE NEUTROPHIL COUNT ABSOLUTE NEUTROPHIL COUNT RBC HEMOGLOBIN HEMATOCRIT MCV MCH MCHC PLATELET COUNT PLATELET COUNT RDW NEUTROPHILS LYMPHOCYTES MONOCYTES EOSINOPHILS BASOPHILS ABSOLUTE NEUTROPHIL COUNT ABSOLUTE LYMPHOCYTE COUNT ABSOLUTE MONOCYTE COUNT ABSOLUTE EOSINOPHIL COUNT ABSOLUTE BASOPHIL COUNT IG/BANDS BAND FLAG BLAST FLAG VARIANT LYMPHS DFLT N DFLT L DFLT M DFLT E DFLT B LRI URI MPV FWBC FLAG NRBC FLAG RRBC FLAG NWBC FLAG MPV FLAG XR FOOT LT 2011-10-05 REASON FOR VISIT Annual Exam, elevated Potassium on labs , Pre-operative medical clearance, Osteoarthritis right hip, pending arthroplasty, Hypertension, Hyperlipidemia, Peripheral vascular disease, Benign prostatic hypertrophy, Coronary artery disease, Right sided aortic arch, ascending aortic aneurysm, GERD, Sleep apnea, Hypertension, Hyperlipidemia, Popliteal artery aneurysm, Peripheral vascular disease, Coronary artery disease, Benign prostatic hypertrophy, A descending aortic aneurysm, Osteoarthritis of both knees, Obstructive sleep apnea, is not going Dr Rahman instead of ER, fell injury wrist and hip,Hyperlipidemia, Hypertension, Peripheral arterial disease, Coronary artery disease, History of depression, Benign prostatic hypertrophy, GERD, A descending aortic aneurysm, Obstructive sleep apnea, Arthritis, Hyperlipidemia, Hypertension, Arterial aneurysms, popliteal and iliac, Coronary artery disease, of depression, An ascending aortic aneurysm, Benign prostatic hypertrophy, Sleep apnea, FollowUp, Abrasions on 3 toes, Hyperlipidemia, Hypertension, Vascular aneurysms, Peripheral arterial disease, Coronary artery disease, Depression, Benign prostatic hypertrophy, A sending aortic aneurysm, Obstructive sleep apnea, Annual Exam, COVID Positive, Peripheral vascular disease, Hyperlipidemia, Hyp ertension, Popliteal and iliac artery aneurysms, COVID Positive, Hyperlipidemia, Hypertension, Arterial aneurysms, Coronary artery disease, Depression, Benign prostatic hypertrophy, calling about letter for water dept, Letter to Water DEPT, Hypertension, Hyperlipidemia, BPH, Back pain, right side, Aneurysms of the ascending aorta, iliac arteries, popliteal arteries, Depression, Coronary artery disease, GERD, Hyperlipidemia, Hypertension, Popliteal artery aneurysm, Iliac artery aneurysm, Ascending aortic aneurysm, Coronary artery disease, Benign prostatic hypertrophy, Esophageal reflux, History of depression, Letter request, Hypertension, Hyperlipidemia, Popliteal artery aneurysm, Iliac artery aneurysm, Coronary artery disease, wants ct scan/labs/progress notes, ct scan chest / abd/[place] [facility], Needs to be sent to neurologist, Hyperlipidemia, Peripheral vascular disease, Coronary artery disease, Benign prostatic hypertrophy, A descending aortic aneurysm, Hoarseness,new order for ct scan with and without contrast , fainting spells , had episode over weekend, Xray of left wrist need, Concern , BPH, [place] Hypertension, hyperlipidemia, peripheral arterial disease, coronary artery disease, depression, ascending aortic aneurysm, GERD, Lab order rwuest, right hip pain, right knee pain, hypertension, hyperlipidemia, peripheral vascular disease, coronary artery d isease, depression, BPH, a descending aortic aneurysm, poisen kevin , hyperlipidemia, Request, hyperlipidemia, essential hypertension, coronary artery disease, iliac artery aneurysm, BPH, ascending aortic aneurysm, GERD, wants INR added to labs he needs done , needs his CPAP supplies , GERD, possibleabdominal hernia, I am sure to sleep apnea, wants appt for today ? hernia, GERD, hypertension, hyperlipidemia, popliteal aneurysm, peripheral vascular disease, coronary artery disease, BPH, an ascending aortic aneurysm, ? when is his appt with , appt with Dr Dee , pt not due for Ct scan chest , GERD, GERD, GERD, rescheduled appt due to bad weather , GERD, hyperlipidemia, his essential hypertension, vascular aneurysms, coronary artery disease, overweight, BPH, history of depression,ascending aortic aneurysm., lab order, GERD, message for , requesting I call ''s office, would like us to make him an appt. , copy most recent labs , GERD, hypertension, peripheral vascular disease, coronary artery disease, depression, BPH, ascending aortic aneurysm, order labs priorto appt, Re: [facility], Referral, records faxed to [employer], appt with Dr. Leroy, Referral to [facility] Hosp, hypertension, hyperlipidemia, peripheral vascular disease, depression, coronary artery disease, BPH, ascending aortic aneurysm, cancel appt, cardio appt., hypertension, conjunctivitis, peripheral vascular disease, coronary artery disease, BPH, ascending aortic aneurysm, Eye infection, appt [facility], refill request for Tamsulosin and Finasteride, PFT order, hypertension,hyperlipidemia, peripheral arterial disease, depression, BPH, lab work orders, hematochezia, hypertension, hyperlipidemia, bilateral popliteal artery aneurysms, left repaired, peripheral vascular disease with claudication, coronary artery disease, overlay, depression, BPH, hoarseness for 3 months, 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, treated, a sending thoracic aortic aneurysm, appt with [employer], appt with ENT, Appt ENT, hypertension, hyperlipidemia, CAD, PVD, depression, BPH, appt set up for lung screening appt and ct scan a t [facility], hypertension, [facility] [employer] record request, due for yearly low dose chest ct scan at [facility] , wants Labs and MRI set up by us, wants appt with [facility], request for medical records , hypertension, hyperlipidemia, current artery disease, BPH, depression, labs sent to Dr Louie , BPH, hyperlipidemia, hypertension, coronary artery disease, overweight, wants PSA added to his lab orders, [facility] to compare with prior done at , copy of Ct scan done at [facility] , Request for medical record, app[facility] , hypertension, peripheral vascular disease, benign prostatic hypertrophy, coronary artery disease, Record request, called to rescheduled his appt for 11/11/2015, request for PPD form to be filled out, peripheral vascular disease, hyperlipidemia, essential hypertension, coronary artery disease, depression, BPH, ? needs antibiotics prior to dental work, weight check and hypertension, Reminder call, hypertension, peripheral arterial disease, depression, coronary artery disease, BUN/CREAT/GFR results, Hearing evaluation needed, Cpap machine and supplies, hypertension, hyperlipidemia, coronary artery disease, depression, overweight, Tetanus shot, weight check and hypertension, Dr. Bolaños, wants appt with derm for lesion on left cheek, received bill and doesn't think he owes balance, Lipid test from 08/20/14, hyperlipdemia, peripheral vascular disease, peripheral vascular disease, hyperlipidemia, coronary artery disease, claudication left calf, Karthik Dee MD, [facility], Labs from 02/05/2014, hyperlipdemia,Dr. Saunders, Dr. 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, swelling lateral edge left left FOOT Insurance Providers Health Insurance Type Health Plan Insurance Address Health Plan Insurance Phone Health Plan Insurance Name Health Plan Coverage Dates Member ID Patient Relationship to Subscriber Patient Address Patient Phone Patient Name Patient Date of Subscriber ID Subscriber Name Subscriber Date of Group No [employer] [address] [facility] [id number] [employer] self Efrain Pedro [id number] [employer] [address] [facility] [id number] [employer] self Efrain Pedro [id number] [phone] [employer] [address] [facility] [id number] [employer] self Efrain Pedro [id number]
[2023-01-08] MEDS: Lactated Ringers 1,000 ML 50 ML IVCONT (11:06)
--- NOTE | 2023-01-08 11:46 | PC.NURSE ---
Per anesthesia Dr Moreno patient not to receive 10 mg Oxycontin ER per orders. Order discontinued, med returned to [facility].
--- NOTE | 2023-01-08 15:59 | PM.OP ---
Brief Operative Note Date of Service: 01/08/23 Pre-op diagnosis: Right hip OA Post-op diagnosis: same Procedure: Right HANNA Implants: Марина Trident2 64/lip liner Марина Accolade2 #8 132 deg with + 2.5 ceramic 36 FH Surgeon: Andrew Rahman MD Anesthesia: GETA and local Was an Laboratory Analyst used for this Procedure?: Yes Laboratory Analyst: Mamie Vega Estimated blood loss (mL): 200 IV fluids (mL): 1,000 Pathology: other Condition: stable Disposition: PACU
--- NOTE | 2023-01-08 16:08 | PHA.MEDREC ---
Pharmacy Consult ? Medication Reconciliation Pharmacy has completed the medication reconciliation. Reviewed med rec done by nursing
[2023-01-08] MEDS: HYDROmorphone HCl 0.5 MG/0.5 ML SYRINGE 0.25 MG IVPUSH ×5 (16:11→20:58)
[2023-01-08] MEDS: oxyCODONE HCl Immed Release 5 MG TABLET PO (16:33)
--- NOTE | 2023-01-08 17:43 | PC.NURSE ---
Patient arrived from PACU at 1740
[2023-01-08] MEDS: Tamsulosin HCL 0.4 MG CAPSULE PO (18:01)
[2023-01-08] MEDS: 0.9 % Sodium Chloride Flush 3 ML SYRINGE IVFLUSH (18:06)
[2023-01-08] MEDS: Lactated Ringers 1,000 ML 100 ML IVCONT (18:06)
[2023-01-08] MEDS: ceFAZolin Sodium/Dextrose,Iso 2 GM/50 ML PIGGYBACK IV (18:50)
[2023-01-08] MEDS: Acetaminophen 1,000 MG/100 ML PIGGYBACK 400 MG IV (20:04)
--- NOTE | 2023-01-08 20:47 | HO.PM.IMCN ---
History of Present Illness Data of Consult Service Date: 01/08/23 Primary Care Provider: Tony Greenwood MD [facility] Reason for consult: Medical management Patient is an 82-year-old male with a PMH significant for CAD with AL 25 years ago, PAD, COPD, BPH, and GERD who was admitted under Orthopedics to the hospital for total right HANNA. Patient currently complaining of poorly-controlled pain, rates it as an 8/10. Patient apparently received IV Tylenol to little effect. Patient otherwise has no acute medical complaints. Denies headache, vision changes. No fever, chills, nausea, vomiting, abdominal pain. Denies chest pain/pressure, palpitations. No shortness of breath. Patient expressed wishes to begin physical therapy soon with a goal of getting home in the next 2-3 days. Review of Systems Review of Systems: Right hip pain Patient otherwise has no acute medical complaints Yes all other systems are reviewed and are negative [facility] Medical History Aortic aneurysm CAD (coronary artery disease) Cataracts, bilateral COPD (chronic obstructive pulmonary disease) Depression Fracture of left distal radius HTN (hypertension) Hyperlipidemia MARIOSL on CPAP Osteoarthritis of right hip Personal history of nicotine dependence Pulmonary nodules Wears hearing aid in both ears Family History Mother No problems noted. Father No problems noted. Surgical History History of cataract surgery (~2009) History of colonoscopy History of heart artery stent (~1997) Hx of vascular surgery Social History Household Members: Spouse Housing: House Are you a primary care coordination manager to a significant other at home: No Do you presently have visiting nurse or other home services: No Alcohol intake: never Patient Tobacco Use Status: Former Tobacco user Quit Date: 10 years ago Tobacco use type: Cigarette Years Smoked: 30 Smoked in Last 30 Days: No Use of substances other than those prescribed or required for medical reasons: No Have you been hit, kicked, punched, or otherwise hurt by someone within the past year? 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 Allergy Unknown Uncoded 01/07/23 12:24 Active Medications: Current Medications Atorvastatin Calcium (Atorvastatin Calcium 80 Mg Tablet) 80 mg PO BEDTIME KRYSTINA Bupropion HCl (Bupropion Hcl Xl 300 Mg Tab.Er.24h) 300 mg PO BEDTIME KRYSTINA Celecoxib (Celecoxib 200 Mg Capsule) 200 mg PO BID KRYSTINA Docusate Sodium (Docusate Sodium 100 Mg Capsule) 100 mg PO BID KRYSTINA Finasteride (Finasteride 5 Mg Tablet) 5 mg PO BEDTIME KRYSTINA Fluticasone/Umeclidinium/Vilanterol (Fluticasone/Umeclidinium/Vilanterol 100/62.5/25 Blst.W.Dev) 1 puff INHALE RDAILY KRYSTINA Hydromorphone HCl (Hydromorphone Hcl 0.5 Mg/0.5 Ml Syringe) 0.25 mg IVPUSH Q4H PRN; Protocol PRN Reason: Pain, Severe (Pain Scale 7-10) Lactated Ringer's (Lr) 1,000 mls @ 100 mls/hr IVCONT .Q10H KRYSTINA Last Admin: 01/08/23 18:06 Dose: 100 mls/hr Acetaminophen (Ofirmev) 1,000 mg in 100 mls @ 400 mls/hr IV Q6H KRYSTINA Stop: 01/09/23 14:14 Last Admin: 01/08/23 20:04 Dose: 400 mls/hr Isosorbide Mononitrate (Isosorbide Mononitrate 30 Mg Tab.Er.24h) 30 mg PO BEDTIME KRYSTINA; Protocol Metoprolol Succinate (Metoprolol Succinate Er 50 Mg Tab.Er.24h) 50 mg PO BEDTIME KRYSTINA; Protocol Multivitamins/Vitamin C (Multivitamin Tablet) 1 tab PO BEDTIME KRYSTINA Neomycin/Polymyxin/Dexamethasone (Neomy/Polymyx/Dexameth Oph Justina 5 Ml Bottle) 1 drop EYE-BOTH BID PRN PRN Reason: Eye Irritation Omeprazole (Omeprazole 20 Mg Capsule.Dr) 40 mg PO BEDTIME PRN PRN Reason: Gastric Reflux Oxycodone HCl (Oxycodone Hcl Immed Release 5 Mg Tablet) 5 mg PO Q4H PRN PRN Reason: Pain, Moderate(Pain Scale 4-6) Sodium Chloride (0.9 % Sodium Chloride Flush 3 Ml Syringe) 3 ml IVFLUSH QSHIFT [facility] Last Admin: 01/08/23 18:06 Dose: 3 ml Tamsulosin HCl (Tamsulosin Hcl 0.4 Mg Capsule) 0.4 mg PO DAILY@1700 [facility] Last Admin: 01/08/23 18:01 Dose: 0.4 mg Vitamin D (Cholecalciferol (Vitamin D3) 25 Mcg Tablet) 25 mcg PO BEDTIME [facility] Home Medications Medication Instructions Recorded Confirmed Last Taken Type bupropion HCl 300 mg 24 hr tablet, 300 mg PO BEDTIME 07/22/20 12/25/22 01/07/23 History extended release celecoxib 200 mg capsule 200 mg PO BEDTIME 07/22/20 12/25/22 01/02/23 History finasteride 5 mg tablet 5 mg PO BEDTIME 07/22/20 12/25/22 01/07/23 History isosorbide mononitrate 30 mg 30 mg PO BEDTIME 07/22/20 12/25/22 01/07/23 History tablet,extended release 24 hr metoprolol succinate 50 mg 50 mg PO BEDTIME 07/22/20 12/25/22 01/07/23 History tablet,extended release 24 hr clopidogrel 75 mg tablet 75 mg PO BEDTIME 10/06/20 12/25/22 01/02/23 History docusate sodium 100 mg capsule 100 mg PO BEDTIME 10/27/21 12/25/22 Unknown History (Colace) CPAP (CPAP Machine/Device) 06/01/22 12/05/22 Unknown History multivitamin 1 tab PO BEDTIME 06/01/22 12/25/22 01/07/23 History qhzlysxc-xbpebhbcv-zhzixbel 3.5 1 drp ophthalmic (eye) BID PRN Eye 06/01/22 12/24/22 01/08/23 History mg/mL-10,000 unit/mL-0.1% eye drops Irritation pantoprazole 40 mg tablet,delayed 40 mg PO BEDTIME PRN Gastric Reflux 06/01/22 12/25/22 01/07/23 History release tamsulosin 0.4 mg capsule (Flomax) 0.4 mg PO DAILY@1700 06/01/22 12/25/22 Unknown History vitamin B complex (B 1 tab PO BEDTIME 06/01/22 12/25/22 01/07/23 History Complex-Vitamin B12 tablet) aspirin 325 mg tablet 325 mg PO BEDTIME 11/19/22 12/25/22 01/02/23 History calcium 12/24/22 01/07/23 History cholecalciferol (vitamin D3) 25 25 mcg PO BEDTIME 12/24/22 12/25/22 01/07/23 History mcg (1,000 unit) tablet (Vitamin D3) fluticasone fur. 100 mcg-umeclid 1 inh inhalation DAILY 12/24/22 12/24/22 01/07/23 History 62.5 mcg-vilant 25 mcg inhalat.powder (Trelegy Ellipta) zinc 12/24/22 01/07/23 History acetaminophen 500 mg capsule 1,000 mg PO BID PRN Pain 12/25/22 12/25/22 01/07/23 History Physical Exam Vital Signs and Narrative: Vital Signs: Last Vital Signs Temp 97.2 F 01/08/23 19:25 Pulse 75 01/08/23 19:25 Resp 18 01/08/23 19:25 BP 124/59 L 01/08/23 19:25 Pulse Ox 99 01/08/23 19:25 O2 Del Method Nasal Cannula 01/08/23 19:25 O2 Flow Rate 2.0 01/08/23 19:25 BMI result Body Mass Index 27.3 General: AOx3, no acute distress Resp: CTA bilaterally CVS: S1, S2, RRR GI: +BS, NT, no distention Skin: No rash Neuro: Cranial nerves II-XII grossly intact bilaterally. Motor grossly intact bilaterally Extremities: No edema Psych: Appropriate affect Results Labs 12/25/22 12:54 Assessment and Plan (1) CAD (coronary artery disease): Status: Acute (2) S/P total right hip arthroplasty: Status: Acute Plan Patient is an 82-year-old male with a PMH significant for CAD with AL 25 years ago, PAD, COPD, BPH, and GERD who was admitted under Orthopedics to the hospital for total right HANNA. Patient currently complaining of poorly-controlled pain, rates it as an 8/10. Patient apparently received IV Tylenol to little effect. Patient otherwise has no acute medical complaints. Total right HANNA Patient complains of poorly-controlled right hip pain post surgery Plan as per Orthopedics CAD Continue aspirin, statin, isosorbide mononitrate, metoprolol PAD Continue clopidogrel COPD Not in acute exacerbation Continue home inhalers BPH Continue tamsulosin, finasteride Mood disorder Continue bupropion Thank you for allowing us to participate in the care of this patient. Signing off at this time. Please let us know if there are any acute complaints or questions. Time Spent With Patient Time: Total time managing care of this patient today ____ minutes.
[2023-01-08] MEDS: Finasteride 5 MG TABLET PO (21:01)
[2023-01-08] MEDS: Celecoxib 200 MG CAPSULE PO (21:02)
[2023-01-08] MEDS: Isosorbide Mononitrate 30 MG TAB.ER.24H PO (21:02)
[2023-01-08] MEDS: Metoprolol Succinate ER 50 MG TAB.ER.24H PO (21:02)
[2023-01-08] MEDS: Docusate Sodium 100 MG CAPSULE PO (21:02)
[2023-01-08] MEDS: buPROPion HCl XL 300 MG TAB.ER.24H PO (21:02)
[2023-01-08] MEDS: Multivitamin TABLET 1 TAB PO (21:02)
[2023-01-08] MEDS: Atorvastatin Calcium 80 MG TABLET PO (21:02)
[2023-01-08] MEDS: Cholecalciferol (Vitamin D3) 25 MCG TABLET PO (21:03)
[2023-01-09] VITALS (12 sets, daily range): BP systolic 60–111; BP diastolic 40–66; PULSE 73–89; RESP 16–19; TEMP 36–36.4; O2SAT 93–96
[2023-01-09] MEDS: Acetaminophen 1,000 MG/100 ML PIGGYBACK 400 MG IV ×3 (02:29→14:42)
[2023-01-09] MEDS: Lactated Ringers 1,000 ML 100 ML IVCONT (03:50)
[2023-01-09] MEDS: HYDROmorphone HCl 0.5 MG/0.5 ML SYRINGE 0.25 MG IVPUSH (03:50)
[2023-01-09 06:04] LABS: MANUAL DIFF FLAG NO
[2023-01-09 06:23] LABS: Basophils Percent Auto 0.2 % (0-2); Hematocrit 36.1 % (42.0-52.0); Hemoglobin 11.9 g/dl (14.0-18.0); Imm Gran Abs Auto 0.03 X10*3/uL (0.00-0.03); Imm Gran Pct Auto 0.3 % (0.0-0.4); Lymphocytes Absolute Auto 1.1 X10*3/uL (1.2-4.9); Lymphocytes Percent Auto 11.3 % (20-40); Mean Corpuscular Hemoglobin 32.2 pg (27.0-33.0); Mean Corpuscular Volume 97.8 fL (80.0-98.0); Mean Platelet Volume 9.6 fL (9.4-12.4); Neutrophils Absolute Auto 7.7 x10*3/uL (2.0-8.3); Neutrophils Percent Auto 78.2 % (45-73); Platelet Count 200 X10*3/uL (160-400); Red Blood Count 3.69 X10*6/uL (4.60-5.80); Red Cell Distribution Width 12.8 % (11.0-16.0); White Blood Count 9.9 X10*3/uL (4.8-10.8)
[2023-01-09 06:33] LABS: Anion Gap 13 (12-20); Blood Urea Nitrogen 19 mg/dL (9-16); Calcium 9.5 mg/dL (8.4-10.2); Carbon Dioxide 29 mmol/L (22-29); Chloride 104 mmol/L (96-108); Estimated Glomerular Filt Rate > 60; Glucose Fasting 121 mg/dL (60-99); Potassium 4.8 mmol/L (3.3-5.1); Sodium 141 mmol/L (135-145)
--- NOTE | 2023-01-09 07:13 | PM.PNORT ---
Subjective Subjective Date of Service: 01/09/23 Interval history: POD1 s/p RTHA. Patient is resting in bed comfortably. No overnight events. Pain is managed. No additional complaints. Physical Exam Vital Signs: Vital Signs: Last Vital Signs Temp 96.8 F 01/09/23 03:25 Pulse 73 01/09/23 03:25 Resp 18 01/09/23 04:20 BP 111/66 01/09/23 03:25 Pulse Ox 96 01/09/23 03:25 O2 Del Method CPAP 01/09/23 03:25 O2 Flow Rate 2 01/09/23 03:25 BMI result Body Mass Index 27.3 Const: General: cooperative, healthy appearing and no acute distress Resp: Effort & Inspection: normal respiratory effort and able to speak in complete sentences Cardio: Rate: regular rate Peripheral pulses: Peripheral pulses 2+ throughout GI: Palpation (GI): Soft to palpation Skin: Lesions: no lesions Rashes: no rashes Extrem: Other: Right hip Aquacel is c/d/i. Able to Dorsi/Plantar flex. NVI. Procedures Date of Service Date of Service: 01/09/23 Progress Note: A&P Assessment and plan (1) S/P total right hip arthroplasty: Status: Acute Plan Continue pain mgmnt Resume Plavix and ASA 81mg for dvt ppx begin PT for RTHA Dispo planning-Pending PT eval, pain mgmnt Time Spent With Patient Time: Total time managing care of this patient today ____ minutes. Quality Stroke Does the patient have a stroke diagnosis?: No VTE Prior VTE?: No VTE Risk Level:: Medical - moderate - high VTE Device Contraindication: N/A - Device Ordered VTE Drug Contraindication: N/A - Med Ordered
[2023-01-09] MEDS: oxyCODONE HCl Immed Release 5 MG TABLET PO ×3 (07:30→21:18)
[2023-01-09] MEDS: Docusate Sodium 100 MG CAPSULE PO ×2 (07:30→21:23)
[2023-01-09] MEDS: Celecoxib 200 MG CAPSULE PO ×2 (07:31→21:18)
[2023-01-09] MEDS: Fluticasone/Umeclidinium/Vilanterol 100/62.5/25 BLST.W.DEV 1 PUFF INHALE (08:10)
--- NOTE | 2023-01-09 08:18 | HO.POSTANES ---
Post Anesthesia Evaluation Post Anesthesia Evaluation Date of Service: 01/09/23 Vital Signs: Vital Signs Temp Pulse Resp BP Pulse Ox O2 Del Method O2 Flow Rate 01/09/23 08:13 73 18 01/09/23 04:20 18 01/09/23 03:25 96.8 F 73 16 111/66 96 CPAP 2 01/09/23 03:00 18 01/08/23 23:40 96.9 F 70 16 107/67 93 CPAP 2 Anesthesia: General Endotracheal-GETA Mental Status: Awake Pain Control: Satisfactory Nausea/Vomiting: None Hydration: Adequate Anesthesia-Related Issues: No Anes. Related Issues
--- NOTE | 2023-01-09 10:11 | P.PNIM_ITS ---
Subjective Subjective Date of Service: 01/09/23 Interval History: f/u on med consult s/p right HANNA, now low BP but assymptomatic blood count ok, no sings or symptoms of sepsis BP recheck myself multiple times SBP 90 to over 100 Physical Exam Vital Signs: Vital Signs: Last Vital Signs Temp 96.8 F 01/09/23 03:25 Pulse 73 01/09/23 08:13 Resp 18 01/09/23 08:13 BP 111/66 01/09/23 03:25 Pulse Ox 96 01/09/23 03:25 O2 Del Method CPAP 01/09/23 03:25 O2 Flow Rate 2 01/09/23 03:25 BMI result Body Mass Index 27.3 Const: Other: General: AO X 3, no acute distress Resp: CTA bilateral CVS: S1,S2,RRR GI: +BS, NT, no distention Skin: No rash Neuro: motor grossly intact Psych: appropriate affect Objective Data Active Medications Aspirin (Aspirin 81 Mg Tab.Chew) 81 mg PO DAILY [facility] Atorvastatin Calcium (Atorvastatin Calcium 80 Mg Tablet) 80 mg PO BEDTIME [facility] Last Admin: 01/08/23 21:02 Dose: 80 mg Documented By: CHADWICK Bupropion HCl (Bupropion Hcl Xl 300 Mg Tab.Er.24h) 300 mg PO BEDTIME [facility] Last Admin: 01/08/23 21:02 Dose: 300 mg Documented By: CHADWICK Celecoxib (Celecoxib 200 Mg Capsule) 200 mg PO BID [facility] Last Admin: 01/09/23 07:31 Dose: 200 mg Documented By: YARIEL Clopidogrel Bisulfate (Clopidogrel Bisulfate 75 Mg Tablet) 75 mg PO DAILY [facility] Docusate Sodium (Docusate Sodium 100 Mg Capsule) 100 mg PO BID [facility] Last Admin: 01/09/23 07:30 Dose: 100 mg Documented By: YARIEL Finasteride (Finasteride 5 Mg Tablet) 5 mg PO BEDTIME [facility] Last Admin: 01/08/23 21:01 Dose: 5 mg Documented By: CHADWICK Fluticasone/Umeclidinium/Vilanterol (Fluticasone/Umeclidinium/Vilanterol 100/62.5/25 Blst.W.Dev) 1 puff INHALE RDAILY [facility] Last Admin: 01/09/23 08:10 Dose: 1 puff Documented By: PAULA Hydromorphone HCl (Hydromorphone Hcl 0.5 Mg/0.5 Ml Syringe) 0.25 mg IVPUSH Q4H PRN; Protocol PRN Reason: Pain, Severe (Pain Scale 7-10) Last Admin: 01/09/23 03:50 Dose: 0.25 mg Documented By: PASCUAL Lactated Ringer's (Lr) 1,000 mls @ 100 mls/hr IVCONT .Q10H [facility] Last Admin: 01/09/23 03:50 Dose: 100 mls/hr Documented By: PASCUAL Acetaminophen (Ofirmev) 1,000 mg in 100 mls @ 400 mls/hr IV Q6H KRYSTINA Stop: 01/09/23 14:14 Last Infusion: 01/09/23 08:00 Dose: 400 mls/hr Documented By: YARIEL Sodium Chloride (Ns) 1,000 mls @ 999 mls/hr IVCONT .Q1H1M KRYSTINA Stop: 01/09/23 12:15 Isosorbide Mononitrate (Isosorbide Mononitrate 30 Mg Tab.Er.24h) 30 mg PO BEDTIME KRYSTINA; Protocol Last Admin: 01/08/23 21:02 Dose: 30 mg Documented By: CHADWICK Metoprolol Succinate (Metoprolol Succinate Er 50 Mg Tab.Er.24h) 50 mg PO BEDTIM E KRYSTINA; Protocol Last Admin: 01/08/23 21:02 Dose: 50 mg Documented By: CHADWICK Multivitamins/Vitamin C (Multivitamin Tablet) 1 tab PO BEDTIME K[facility]STINA Last Admin: 01/08/23 21:02 Dose: 1 tab Documented By: CHADWICK Neomycin/Polymyxin/Dexamethasone (Neomy/Polymyx/Dexameth Oph Justina 5 Ml Bottle) 1 drop EYE-BOTH BID PRN PRN Reason: Eye Irritation Omeprazole (Omeprazole 20 Mg Capsule.Dr) 40 mg PO BEDTIME PRN PRN Reason: Gastric Reflux Oxycodone HCl (Oxycodone Hcl Immed Release 5 Mg Tablet) 5 mg PO Q4H PRN PRN Reason: Pain, Moderate(Pain Scale 4-6) Last Admin: 01/09/23 07:30 Dose: 5 mg Documented By: YARIEL Sodium Chloride (0.9 % Sodium Chloride Flush 3 Ml Syringe) 3 ml IVFLUSH QSHIFT [facility] Last Admin: 01/09/23 07:32 Dose: Not Given Documented By: YARIEL Non-Admin Reason: IV Running Tamsulosin HCl (Tamsulosin Hcl 0.4 Mg Capsule) 0.4 mg PO DAILY@1700 [facility] Last Admin: 01/08/23 18:01 Dose: 0.4 mg Documented By: CHADWICK Vitamin D (Cholecalciferol (Vitamin D3) 25 Mcg Tablet) 25 mcg PO BEDTIME [facility] Last Admin: 01/08/23 21:03 Dose: 25 mcg Documented By: CHADWICK Labs 01/09/23 05:21 01/09/23 05:21 Labs: Laboratory Results - last 24 hr 01/09/23 01/09/23 05:21 05:21 MCV 97.8 MCH 32.2 MCHC 33.0 RDW 12.8 Plt Count 200 MPV 9.6 Immature Gran % (Auto) 0.3 Neut % (Auto) 78.2 H Lymph % (Auto) 11.3 L [place] % (Auto) 10.0 Eos % (Auto) 0.0 Baso % (Auto) 0.2 Lymph # (Auto) 1.1 L [place] # (Auto) 1.0 Eos # (Auto) 0.0 Baso # (Auto) 0.0 Abs Immat Gran (auto) 0.03 Absolute Neuts (auto) 7.7 Absolute Nucleated RBC 0.000 Nucleated RBC % (auto) 0.0 Anion Gap 13 Estim Creat Clear Calc 69.0 Estimated GFR > 60 Fasting Glucose 121 H Calcium 9.5 Assessment and Plan (1) S/P total right hip arthroplasty: Status: Acute (2) CAD (coronary artery disease): Status: Acute Plan Patient is an 82-year-old male with a PMH significant for CAD with NC 25 years ago, PAD, COPD, BPH, and GERD who was admitted under Orthopedics to the hospital for total right HANNA.? Patient currently complaining of poorly-controlled pain, rates it as an 8/10.? Patient apparently received IV Tylenol to little effect.? Patient otherwise has no acute medical complaints. Total right HANNA on 01/08 management including pain and dvt prophylaxis by ortho Assymtomatic HypOtension-- Patient is assymptomatic, BP recheck several times to be OK and therefore will hold additinal IVF CAD Continue aspirin, statin --hold d/t low BP, isosorbide mononitrate, metoprolol PAD Continue clopidogrel COPD Not in acute exacerbation Continue home inhalers BPH Continue tamsulosin, finasteride Mood disorder Continue bupropion dvt prophy per ortho Time Spent With Patient Time: Total time managing care of this patient today ____ minutes. Quality Stroke Does the patient have a stroke diagnosis?: No VTE Prior VTE?: No VTE Risk Level:: Medical - moderate - high VTE Device Contraindication: N/A - Device Ordered VTE Drug Contraindication: N/A - Med Ordered
[2023-01-09] MEDS: 0.9 % Sodium Chloride 1,000 ML 125 ML IVCONT ×3 (10:38→23:51)
--- NOTE | 2023-01-09 10:55 | MHC.CM.PN ---
S/P RT HANNA He lives with his . He is independent with all functional mobility. He uses a cane PRN. DP home w services. Patient plans to transfer to out patient therapy when he can drive. A referral has been sent to [facility]. Patients will transport pt home.
--- NOTE | 2023-01-09 13:45 | PC.NURSE ---
At approx.1000 pt was up in chair and request pain med. At this time bp was taken by RN. Bp machine registered 64/45 p85. Manual was 60/40. Pt was asymptomatic. pt was assisted back to bed. Dr Elizabeth made aware and evaluated pt. Bp improved 92/58 and 108/55 ns bolus not given at this time. Iv fluid changed to ns at 125hr. At 1230 Bp was 78/[address] Elizabeth made aware. Increased iv rate to 250Hr
[2023-01-09] MEDS: Aspirin 81 MG TAB.CHEW PO (14:41)
[2023-01-09] MEDS: Clopidogrel Bisulfate 75 MG TABLET PO (14:41)
--- NOTE | 2023-01-09 15:21 | PC.NURSE ---
NS 500ml bolus at 250 hr had run in prior to change placed in computer. Bp improved.
--- NOTE | 2023-01-09 15:34 | PC.NURSE ---
BP 91/50 pulse 74,patient asymptomatic,
[2023-01-09] MEDS: Tamsulosin HCL 0.4 MG CAPSULE PO (17:39)
--- NOTE | 2023-01-09 18:35 | P.DS_ITS ---
DS: Providers Provider Date of Service: 01/11/23 Date of admission: 01/08/23 09:47 Primary care physician: Tony Greenwood MD Consults: 01/08/23 17:40 Consult to Hospitalist Routine Comment: Consulting Provider: Hospitalist Reason For Exam: Routine medical managment DS: Diagnosis Discharge Diagnosis (1) S/P total right hip arthroplasty: Status: Acute (2) CAD (coronary artery disease): Status: Acute DS: Summary Hospital Course Hospital Course: The patient underwent a successful right total hip arthroplasty, they were transferred to PACU and then to the floor to recover. During their stay, their vitals were stable, afebrile at 97.5. Labs were unremarkable, H/H 11.9/36.1. POD 1 they were started on Aspirin 325mg po qd for DVT ppx and resumed Plavix regular dose, they also received Physical Therapy services twice a day. Prior to discharge, their dressing was changed, incision clean dry and intact, new Aquacel dressing applied and the plan was to be discharged home with VNA services. Time Spent with Patient Time attestation: Total time managing care of this patient today ____ minutes. Discharge coordination time: Less than 30 minutes Quality: Safe Use of Opioids Does Pt have an Active Cancer Diagnosis on the Problem List?: No Quality: Stroke Does the patient have a stroke diagnosis?: No Physical Exam Vital Signs: Vital Signs: Last Vital Signs Temp 97.5 F 01/09/23 15:05 Pulse 74 01/09/23 15:31 Resp 18 01/09/23 15:05 BP 91/50 L 01/09/23 15:31 Pulse Ox 93 01/09/23 15:05 O2 Del Method Room Air 01/09/23 15:05 O2 Flow Rate 2 01/09/23 03:25 BMI result Body Mass Index 27.3 Const: General: cooperative, healthy appearing and no acute distress Resp: Effort & Inspection: normal respiratory effort and able to speak in complete sentences Cardio: Rate: regular rate Peripheral pulses: Peripheral pulses 2+ throughout GI: Palpation (GI): Soft to palpation Skin: Lesions: no lesions Rashes: no rashes Extrem: Other: Right hip Aquacel is c/d/i. Able to Dorsi/Plantar flex. Staoles intact. No signs of infection. NVI. DS: Data Data Completed and Pending Pending studies at discharge: Pending at discharge 01/08/23 15:18 Surgical [PTH] Routine Labs on day of discharge: Laboratory Results - last 24 hr 01/09/23 01/09/23 05:21 05:21 WBC 9.9 RBC 3.69 L Hgb 11.9 L Hct 36.1 L MCV 97.8 MCH 32.2 MCHC 33.0 RDW 12.8 Plt Count 200 MPV 9.6 Immature Gran % (Auto) 0.3 Neut % (Auto) 78.2 H Lymph % (Auto) 11.3 L [place] % (Auto) 10.0 Eos % (Auto) 0.0 Baso % (Auto) 0.2 Lymph # (Auto) 1.1 L [place] # (Auto) 1.0 Eos # (Auto) 0.0 Baso # (Auto) 0.0 Abs Immat Gran (auto) 0.03 Absolute Neuts (auto) 7.7 Absolute Nucleated RBC 0.000 Nucleated RBC % (auto) 0.0 Sodium 141 Potassium 4.8 Chloride 104 Carbon Dioxide 29 Anion Gap 13 BUN 19 H Creatinine 1.03 Estim Creat Clear Calc 69.0 Estimated GFR > 60 Fasting Glucose 121 H Calcium 9.5 Discharge Plan Discharge Anticipated Discharge Date/Time: 01/11/23 13:00 Patient Disposition: Home Health Service Discharge Diagnosis: s/p RTHA Referrals: Lorne Castro PA-C [Physician Solar Sales Representative And Assessor] - 01/24/23 2:30 pm Discharge Medications: New oxycodone 5 mg Tablet 5 mg PO Q4H PRN (Reason: Pain, Moderate(Pain Scale 4-6)) Qty: 42 0RF Rx Instructions: Partial Fill upon patient request. acetaminophen [Tylenol] 325 mg tablet 650 mg PO Q6H 30 Days Qty: 240 0RF Continued atorvastatin 80 mg tablet 80 mg PO BEDTIME 90 Days Qty: 90 3RF Trelegy Ellipta 100-62.5-25 mcg Blister With Device 1 inh INHALATION DAILY cholecalciferol (vitamin D3) [Vitamin D3] 25 mcg (1,000 unit) Tablet 25 mcg PO BEDTIME calcium zinc acetaminophen 500 mg Capsule 1,000 mg PO BID PRN (Reason: Pain) clopidogrel 75 mg tablet 75 mg PO BEDTIME celecoxib 200 mg capsule 200 mg PO BEDTIME finasteride 5 mg tablet 5 mg PO BEDTIME isosorbide mononitrate 30 mg tablet extended release 24 hr 30 mg PO BEDTIME metoprolol succinate 50 mg tablet extended release 24 hr 50 mg PO BEDTIME bupropion HCl 300 mg tablet extended release 24 hr 300 mg PO BEDTIME pantoprazole 40 mg tablet,delayed release (DR/EC) 40 mg PO BEDTIME PRN (Reason: Gastric Reflux) docusate sodium [Colace] 100 mg capsule 100 mg PO BEDTIME neomycin-polymyxin B-dexameth 3.5mg/mL-10,000 unit/mL-0.1 % drops,suspension 1 drp ophthalmic (eye) BID PRN (Reason: Eye Irritation) (DME) CPAP Machine/Device Device See Rx Instructions .Route Rx Instructions: As directed tamsulosin [Flomax] 0.4 mg capsule 0.4 mg PO DAILY@1700 multivitamin Tablet 1 tab PO BEDTIME vitamin B complex [B Complex-Vitamin B12] Tablet 1 tab PO BEDTIME aspirin 325 mg tablet 325 mg PO BEDTIME Discharge Orders: Discharge Order (Routine); Ordered 01/11/23 Ordered By: Mamie Vega Diet: Advance to usual diet Activity on Discharge: Use cane or walker Stand Alone Forms: Patient Portal Discharge page Care Plan Goals: Restore fxn to right hip Health Concerns: None Plan of Treatment: Physical Therapy for total hip arthroplasty: posterior precautions, gait training, ROM, strength Limit stair climbing No showering, no tub bath-keep dressing clean, dry and intact No driving x6 weeks Continue Lovenox tabs once a day x 4 weeks Follow up with [facility] in 2 weeks Assessment: Stable for d/c home
--- NOTE | 2023-01-09 18:40 | W.MHC.F2F ---
Service Date Service Date: 01/11/23 Encounter Date of encounter: 01/11/23 Reasons for Services Signs and symptoms assessed: s/p RTHA. Pt. is considered homebound due to recent surgery. Unable to drive, poor balance, poor gait mechanics. Reason for physical therapy: home safety and mobility, therapeutic exercises, restore joint function, gait/transfer training, assess need for DME and ADL training Reason for occupational therapy: home safety and mobility, therapeutic exercises, restore joint function, gait/transfer training, assess need for DME and ADL training Homebound: Leaving the home is medically contraindicated at this time without the asist of a device and/or another person due th the listed conditions above and below. Reason homebound: unsteady gait / fall risk, leg weakness, pain with ambulation, pain with transfers, poor balance / fall risk and unable to drive Certification: Based on the above findings, I certify that this patient is confined to the home and needs intermittent penitentiary care, physical therapy and/or speech therapy, or continues to need occupational therapy. The patient is under my care, and I have initiated the establishment of the plan of care. The patient will be followed by a physician who will periodically review the plan of care. Time Spent With Patient Time: Total time managing care of this patient today ____ minutes.
--- NOTE | 2023-01-09 20:20 | PC.NURSE ---
BP 96/52 pulse 86 ,Dr. Parish notified,patient had low BP all day,will hold Toprol and Isosorbide per Dr. Parish
[2023-01-09] MEDS: Multivitamin TABLET 1 TAB PO (21:17)
[2023-01-09] MEDS: Cholecalciferol (Vitamin D3) 25 MCG TABLET PO (21:17)
[2023-01-09] MEDS: buPROPion HCl XL 300 MG TAB.ER.24H PO (21:18)
[2023-01-09] MEDS: Atorvastatin Calcium 80 MG TABLET PO (21:18)
[2023-01-09] MEDS: Finasteride 5 MG TABLET PO (21:19)
[2023-01-09] MEDS: Throat Lozenge, Medicated LOZENGE 1 LOZENGE MUCOUS MEM (21:49)
[2023-01-10] VITALS (7 sets, daily range): BP systolic 112–164; BP diastolic 55–67; PULSE 80–100; RESP 19–20; TEMP 36.4–36.9; O2SAT 93–100
[2023-01-10 06:11] LABS: Basophils Percent Auto 0.3 % (0-2); Eosinophils Absolute Auto 0.2 X10*3/uL (0.0-0.4); Eosinophils Percent Auto 2.5 % (0-4); Hematocrit 31.7 % (42.0-52.0); Hemoglobin 10.3 g/dl (14.0-18.0); Imm Gran Abs Auto 0.03 X10*3/uL (0.00-0.03); Imm Gran Pct Auto 0.4 % (0.0-0.4); Lymphocytes Absolute Auto 1.3 X10*3/uL (1.2-4.9); Lymphocytes Percent Auto 16.9 % (20-40); MANUAL DIFF FLAG NO; Mean Corpuscular HGB Conc 32.5 g/dl (31.0-36.0); Mean Corpuscular Hemoglobin 32.6 pg (27.0-33.0); Mean Corpuscular Volume 100.3 fL (80.0-98.0); Mean Platelet Volume 9.6 fL (9.4-12.4); Monocytes Absolute Auto 0.8 X10*3/uL (0.1-1.2); Neutrophils Absolute Auto 5.3 x10*3/uL (2.0-8.3); Neutrophils Percent Auto 68.9 % (45-73); Platelet Count 157 X10*3/uL (160-400); Red Blood Count 3.16 X10*6/uL (4.60-5.80); White Blood Count 7.7 X10*3/uL (4.8-10.8)
[2023-01-10 06:30] LABS: Anion Gap 9 (12-20); Blood Urea Nitrogen 21 mg/dL (9-16); Calcium 8.8 mg/dL (8.4-10.2); Carbon Dioxide 28 mmol/L (22-29); Chloride 109 mmol/L (96-108); Creatinine Clr Calc Pharmacy 67.1; Estimated Glomerular Filt Rate > 60; Glucose Fasting 109 mg/dL (60-99); Potassium 4.5 mmol/L (3.3-5.1); Sodium 141 mmol/L (135-145)
--- NOTE | 2023-01-10 08:02 | P.PNIM_ITS ---
Subjective Subjective Date of Service: 01/10/23 Interval History: doing well, no new isses, SBP within pt ranges Physical Exam Vital Signs: Vital Signs: Last Vital Signs Temp 97.6 F 01/10/23 04:00 Pulse 81 01/10/23 04:00 Resp 19 01/10/23 04:00 BP 112/55 L 01/10/23 04:00 Pulse Ox 93 01/10/23 04:00 O2 Del Method Room Air 01/10/23 04:00 O2 Flow Rate 2 01/09/23 03:25 BMI result Body Mass Index 27.3 Const: Other: General: AO X 3, no acute distress Resp: CTA bilateral CVS: S1,S2,RRR GI: +BS, NT, no distention Skin: No rash, wound dressing intact Neuro: motor grossly intact Psych: appropriate affect Objective Data Active Medications Aspirin (Aspirin 81 Mg Tab.Chew) 81 mg PO DAILY [facility] Last Admin: 01/09/23 14:41 Dose: 81 mg Documented By: YARIEL Atorvastatin Calcium (Atorvastatin Calcium 80 Mg Tablet) 80 mg PO BEDTIME [facility] Last Admin: 01/09/23 21:18 Dose: 80 mg Documented By: CHADWICK Benzocaine (Throat Lozenge, Medicated Lozenge) 1 lozenge MUCOUS MEM Q2H PRN PRN Reason: Sore Throat Last Admin: 01/09/23 21:49 Dose: 1 lozenge Documented By: CHADWICK Bupropion HCl (Bupropion Hcl Xl 300 Mg Tab.Er.24h) 300 mg PO BEDTIME [facility] Last Admin: 01/09/23 21:18 Dose: 300 mg Documented By: CHADWICK Celecoxib (Celecoxib 200 Mg Capsule) 200 mg PO BID [facility] Last Admin: 01/09/23 21:18 Dose: 200 mg Documented By: CHADWICK Clopidogrel Bisulfate (Clopidogrel Bisulfate 75 Mg Tablet) 75 mg PO DAILY [facility] Last Admin: 01/09/23 14:41 Dose: 75 mg Documented By: YARIEL Docusate Sodium (Docusate Sodium 100 Mg Capsule) 100 mg PO BID [facility] Last Admin: 01/09/23 21:23 Dose: 100 mg Documented By: CHADWICK Finasteride (Finasteride 5 Mg Tablet) 5 mg PO BEDTIME [facility] Last Admin: 01/09/23 21:19 Dose: 5 mg Documented By: CHADWICK Fluticasone/Umeclidinium/Vilanterol (Fluticasone/Umeclidinium/Vilanterol 100/62.5/25 Blst.W.Dev) 1 puff INHALE RDAILY [facility] Last Admin: 01/09/23 08:10 Dose: 1 puff Documented By: BRESNE Hydromorphone HCl (Hydromorphone Hcl 0.5 Mg/0.5 Ml Syringe) 0.25 mg IVPUSH Q4H PRN; Protocol PRN Reason: Pain, Severe (Pain Scale 7-10) Last Admin: 01/09/23 03:50 Dose: 0.25 mg Documented By: PASCUAL Sodium Chloride (Ns) 1,000 mls @ 125 mls/hr IVCONT .Q8H [facility] Last Admin: 01/09/23 23:51 Dose: 125 mls/hr Documented By: PASCUAL Isosorbide Mononitrate (Isosorbide Mononitrate 30 Mg Tab.Er.24h) 30 mg PO BEDTIME [facility]; Protocol Last Admin: 01/09/23 21:17 Dose: Not Given Documented By: CHADWICK Non-Admin Reason: Physician Held Med Metoprolol Succinate (Metoprolol Succinate Er 50 Mg Tab.Er.24h) 50 mg PO BEDTIME [facility]; Protocol Last Admin: 01/09/23 21:16 Dose: Not Given Documented By: CHADWICK Non-Admin Reason: Physician Held Med Multivitamins/Vitamin C (Multivitamin Tablet) 1 tab PO BEDTIME [facility] Last Admin: 01/09/23 21:17 Dose: 1 tab Documented By: CHADWICK Neomycin/Polymyxin/Dexamethasone (Neomy/Polymyx/Dexameth Oph Justina 5 Ml Bottle) 1 drop EYE-BOTH BID PRN PRN Reason: Eye Irritation Omeprazole (Omeprazole 20 Mg Capsule.Dr) 40 mg PO BEDTIME PRN PRN Reason: Gastric Reflux Oxycodone HCl (Oxycodone Hcl Immed Release 5 Mg Tablet) 5 mg PO Q4H PRN PRN Reason: Pain, Moderate(Pain Scale 4-6) Last Admin: 01/09/23 21:18 Dose: 5 mg Documented By: CHADWICK Sodium Chloride (0.9 % Sodium Chloride Flush 3 Ml Syringe) 3 ml IVFLUSH QSHIFT [facility] Last Admin: 01/09/23 23:49 Dose: Not Given Documented By: PASCUAL Non-Admin Reason: IV Running Tamsulosin HCl (Tamsulosin Hcl 0.4 Mg Capsule) 0.4 mg PO DAILY@1700 [facility] Last Admin: 01/09/23 17:39 Dose: 0.4 mg Documented By: CHADWICK Vitamin D (Cholecalciferol (Vitamin D3) 25 Mcg Tablet) 25 mcg PO BEDTIME [facility] Last Admin: 01/09/23 21:17 Dose: 25 mcg Documented By: CHADWICK Labs 01/10/23 05:36 01/10/23 05:36 Labs: Laboratory Results - last 24 hr 01/10/23 01/10/23 05:36 05:36 MCV 100.3 H MCH 32.6 MCHC 32.5 RDW 13.0 Plt Count 157 L MPV 9.6 Immature Gran % (Auto) 0.4 Neut % (Auto) 68.9 Lymph % (Auto) 16.9 L [place] % (Auto) 11.0 Eos % (Auto) 2.5 Baso % (Auto) 0.3 Lymph # (Auto) 1.3 [place] # (Auto) 0.8 Eos # (Auto) 0.2 Baso # (Auto) 0.0 Abs Immat Gran (auto) 0.03 Absolute Neuts (auto) 5.3 Absolute Nucleated RBC 0.000 Nucleated RBC % (auto) 0.0 Anion Gap 9 L Estim Creat Clear Calc 67.1 Estimated GFR > 60 Fasting Glucose 109 H Calcium 8.8 D Assessment and Plan (1) S/P total right hip arthroplasty: Status: Acute (2) CAD (coronary artery disease): Status: Acute Plan Patient is an 82-year-old male with a PMH significant for CAD with KS 25 years ago, PAD, COPD, BPH, and GERD who was admitted under Orthopedics to the hospital for total right HANNA.? Patient currently complaining of poorly-controlled pain, rates it as an 8/10.? Patient apparently received IV Tylenol to little effect.? Patient otherwise has no acute medical complaints. Total right HANNA on 01/08 management including pain and dvt prophylaxis by ortho Assymtomatic HypOtension-- likely from hypovolemia, resolved with IVF, DC NS CAD Continue aspirin, statin --restart meds (metoprolol, nitrate) PAD Continue clopidogrel COPD Not in acute exacerbation Continue home inhalers BPH Continue tamsulosin, finasteride Mood disorder Continue bupropion dvt prophy per ortho Time Spent With Patient Time: Total time managing care of this patient today ____ minutes. Quality Stroke Does the patient have a stroke diagnosis?: No VTE Prior VTE?: No VTE Risk Level:: Medical - moderate - high VTE Device Contraindication: N/A - Device Ordered VTE Drug Contraindication: N/A - Med Ordered
[2023-01-10] MEDS: Docusate Sodium 100 MG CAPSULE PO ×2 (08:43→20:31)
[2023-01-10] MEDS: 0.9 % Sodium Chloride Flush 3 ML SYRINGE IVFLUSH ×3 (08:43→19:18)
[2023-01-10] MEDS: Celecoxib 200 MG CAPSULE PO ×2 (08:43→20:31)
[2023-01-10] MEDS: Aspirin 81 MG TAB.CHEW PO (08:43)
[2023-01-10] MEDS: Clopidogrel Bisulfate 75 MG TABLET PO (08:43)
--- NOTE | 2023-01-10 08:55 | PM.PNORT ---
Subjective Subjective Date of Service: 01/10/23 Interval history: POD2 s/p RTHA. Patient is resting in bed comfortably. No overnight events. Pain is managed. No additional complaints. BP continues to be soft but is asymptomatic. Physical Exam Vital Signs: Vital Signs: Last Vital Signs Temp 97.6 F 01/10/23 08:00 Pulse 80 01/10/23 08:00 Resp 20 01/10/23 08:00 BP 128/61 01/10/23 08:00 Pulse Ox 97 01/10/23 08:00 O2 Del Method Room Air 01/10/23 08:00 O2 Flow Rate 2 01/09/23 03:25 BMI result Body Mass Index 27.3 Const: General: cooperative, healthy appearing and no acute distress Resp: Effort & Inspection: normal respiratory effort and able to speak in complete sentences Cardio: Rate: regular rate Peripheral pulses: Peripheral pulses 2+ throughout GI: Palpation (GI): Soft to palpation Skin: Lesions: no lesions Rashes: no rashes Extrem: Other: Right hip Aquacel is c/d/i. Able to Dorsi/Plantar flex. Staoles intact. No signs of infection. NVI. Procedures Date of Service Date of Service: 01/10/23 Progress Note: A&P Assessment and plan (1) S/P total right hip arthroplasty: Status: Acute Plan Continue pain mgmnt Resume Plavix and ASA 81mg for dvt ppx begin PT for RTHA Dispo planning-PT, pain mgmnt Time Spent With Patient Time: Total time managing care of this patient today ____ minutes. Quality Stroke Does the patient have a stroke diagnosis?: No VTE Prior VTE?: No VTE Risk Level:: Medical - moderate - high VTE Device Contraindication: N/A - Device Ordered VTE Drug Contraindication: N/A - Med Ordered
[2023-01-10] MEDS: oxyCODONE HCl Immed Release 5 MG TABLET PO ×2 (09:55→19:17)
[2023-01-10] MEDS: Tamsulosin HCL 0.4 MG CAPSULE PO (16:09)
[2023-01-10] MEDS: Finasteride 5 MG TABLET PO (20:30)
[2023-01-10] MEDS: buPROPion HCl XL 300 MG TAB.ER.24H PO (20:31)
[2023-01-10] MEDS: Atorvastatin Calcium 80 MG TABLET PO (20:31)
[2023-01-10] MEDS: Cholecalciferol (Vitamin D3) 25 MCG TABLET PO (20:31)
[2023-01-10] MEDS: Isosorbide Mononitrate 30 MG TAB.ER.24H PO (20:32)
[2023-01-10] MEDS: Metoprolol Succinate ER 50 MG TAB.ER.24H PO (20:32)
[2023-01-10] MEDS: Multivitamin TABLET 1 TAB PO (20:32)
[2023-01-10] MEDS: HYDROmorphone HCl 0.5 MG/0.5 ML SYRINGE 0.25 MG IVPUSH (23:56)
[2023-01-11] VITALS (7 sets, daily range): BP systolic 88–130; BP diastolic 49–65; PULSE 78–100; RESP 18–19; TEMP 36.1–36.6; O2SAT 93–96
[2023-01-11 05:22] LABS: MANUAL DIFF FLAG NO
[2023-01-11 05:25] LABS: Basophils Percent Auto 0.4 % (0-2); Eosinophils Absolute Auto 0.3 X10*3/uL (0.0-0.4); Eosinophils Percent Auto 2.8 % (0-4); Hematocrit 30.1 % (42.0-52.0); Imm Gran Abs Auto 0.08 X10*3/uL (0.00-0.03); Imm Gran Pct Auto 0.9 % (0.0-0.4); Lymphocytes Absolute Auto 1.3 X10*3/uL (1.2-4.9); Lymphocytes Percent Auto 14.5 % (20-40); Mean Corpuscular HGB Conc 33.2 g/dl (31.0-36.0); Mean Corpuscular Hemoglobin 32.6 pg (27.0-33.0); Mean Platelet Volume 9.1 fL (9.4-12.4); Monocytes Percent Auto 10.4 % (2-11); Neutrophils Absolute Auto 6.6 x10*3/uL (2.0-8.3); Platelet Count 165 X10*3/uL (160-400); Red Blood Count 3.07 X10*6/uL (4.60-5.80); Red Cell Distribution Width 13.2 % (11.0-16.0); White Blood Count 9.3 X10*3/uL (4.8-10.8)
[2023-01-11 05:43] LABS: Anion Gap 11 (12-20); Blood Urea Nitrogen 19 mg/dL (9-16); Calcium 9.3 mg/dL (8.4-10.2); Carbon Dioxide 26 mmol/L (22-29); Chloride 109 mmol/L (96-108); Estimated Glomerular Filt Rate > 60; Glucose Fasting 102 mg/dL (60-99); Potassium 4.7 mmol/L (3.3-5.1); Sodium 141 mmol/L (135-145)
[2023-01-11] MEDS: oxyCODONE HCl Immed Release 5 MG TABLET PO ×2 (06:51→16:05)
--- NOTE | 2023-01-11 08:37 | P.PNIM_ITS ---
Subjective Subjective Date of Service: 01/11/23 Interval History: BP normal, pain is resonably well controlled Review of Systems Right hip pain Patient otherwise has no acute medical complaints Physical Exam Vital Signs: Vital Signs: Last Vital Signs Temp 97.0 F 01/11/23 07:36 Pulse 79 01/11/23 07:36 Resp 18 01/11/23 07:36 BP 104/60 01/11/23 07:36 Pulse Ox 94 01/11/23 07:36 O2 Del Method Room Air 01/11/23 07:36 O2 Flow Rate 2 01/09/23 03:25 BMI result Body Mass Index 27.3 Const: Other: General: AO X 3, no acute distress Resp: CTA bilateral CVS: S1,S2,RRR GI: +BS, NT, no distention Skin: No rash, wound dressing intact Neuro: motor grossly intact Psych: appropriate affect Objective Data Active Medications Aspirin (Aspirin 81 Mg Tab.Chew) 81 mg PO DAILY [facility] Last Admin: 01/10/23 08:43 Dose: 81 mg Documented By: BE Atorvastatin Calcium (Atorvastatin Calcium 80 Mg Tablet) 80 mg PO BEDTIME REPLACED BY [facility] Last Admin: 01/10/23 20:31 Dose: 80 mg Documented By: KUNAL Benzocaine (Throat Lozenge, Medicated Lozenge) 1 lozenge MUCOUS MEM Q2H PRN PRN Reason: Sore Throat Last Admin: 01/09/23 21:49 Dose: 1 lozenge Documented By: CHADWICK Bupropion HCl (Bupropion Hcl Xl 300 Mg Tab.Er.24h) 300 mg PO BEDTIME [facility]PLACED [facility] Last Admin: 01/10/23 20:31 Dose: 300 mg Documented By: KUNAL Celecoxib (Celecoxib 200 Mg Capsule) 200 mg PO BID [facility]PLACED [facility] Last Admin: 01/10/23 20:31 Dose: 200 mg Documented By: KUNAL Clopidogrel Bisulfate (Clopidogrel Bisulfate 75 Mg Tablet) 75 mg PO DAILY [facility]PLACED [facility] Last Admin: 01/10/23 08:43 Dose: 75 mg Documented By: BE Docusate Sodium (Docusate Sodium 100 Mg Capsule) 100 mg PO BID REPLACED BY [facility] Last Admin: 01/10/23 20:31 Dose: 100 mg Documented By: KUNAL Finasteride (Finasteride 5 Mg Tablet) 5 mg PO BEDTIME REPLACED [facility] Last Admin: 01/10/23 20:30 Dose: 5 mg Documented By: KUNAL Fluticasone/Umeclidinium/Vilanterol (Fluticasone/Umeclidinium/Vilanterol 100/62.5/25 Blst.W.Dev) 1 puff INHALE RDAILY REPLACED [facility] Last Admin: 01/10/23 08:10 Dose: Not Given Documented By: WILLIS Non-Admin Reason: Patient Refused Hydromorphone HCl (Hydromorphone Hcl 0.5 Mg/0.5 Ml Syringe) 0.25 mg IVPUSH Q4H PRN; Protocol PRN Reason: Pain, Severe (Pain Scale 7-10) Last Admin: 01/10/23 23:56 Dose: 0.25 mg Documented By: KUNAL Isosorbide Mononitrate (Isosorbide Mononitrate 30 Mg Tab.Er.24h) 30 mg PO BEDTIME REPLACED BY [facility]; Protocol Last Admin: 01/10/23 20:32 Dose: 30 mg Documented By: KUNAL Metoprolol Succinate (Metoprolol Succinate Er 50 Mg Tab.Er.24h) 50 mg PO BEDTIME [facility]; Protocol Last Admin: 01/10/23 20:32 Dose: 50 mg Documented By: KUNAL Multivitamins/Vitamin C (Multivitamin Tablet) 1 tab PO BEDTIME [facility] Last Admin: 01/10/23 20:32 Dose: 1 tab Documented By: KUNAL Neomycin/Polymyxin/Dexamethasone (Neomy/Polymyx/Dexameth Oph Justina 5 Ml Bottle) 1 drop EYE-BOTH BID PRN PRN Reason: Eye Irritation Omeprazole (Omeprazole 20 Mg Capsule.Dr) 40 mg PO BEDTIME PRN PRN Reason: Gastric Reflux Oxycodone HCl (Oxycodone Hcl Immed Release 5 Mg Tablet) 5 mg PO Q4H PRN PRN Reason: Pain, Moderate(Pain Scale 4-6) Last Admin: 01/11/23 06:51 Dose: 5 mg Documented By: KUNAL Sodium Chloride (0.9 % Sodium Chloride Flush 3 Ml Syringe) 3 ml IVFLUSH QSHIFT REPLACED BY [facility] Last Admin: 01/10/23 19:18 Dose: 3 ml Documented By: KUNAL Tamsulosin HCl (Tamsulosin Hcl 0.4 Mg Capsule) 0.4 mg PO DAILY@1700 [facility] Last Admin: 01/10/23 16:09 Dose: 0.4 mg Documented By: NUZHAT Vitamin D (Cholecalciferol (Vitamin D3) 25 Mcg Tablet) 25 mcg PO BEDTIME REPLACED BY [facility] Last Admin: 01/10/23 20:31 Dose: 25 mcg Documented By: KUNAL Labs 01/11/23 05:03 01/11/23 05:03 Labs: Laboratory Results - last 24 hr 01/11/23 01/11/23 05:03 05:03 MCV 98.0 MCH 32.6 MCHC 33.2 RDW 13.2 Plt Count 165 MPV 9.1 L Immature Gran % (Auto) 0.9 H Neut % (Auto) 71.0 Lymph % (Auto) 14.5 L [place] % (Auto) 10.4 Eos % (Auto) 2.8 Baso % (Auto) 0.4 Lymph # (Auto) 1.3 [place] # (Auto) 1.0 Eos # (Auto) 0.3 Baso # (Auto) 0.0 Abs Immat Gran (auto) 0.08 H Absolute Neuts (auto) 6.6 Absolute Nucleated RBC 0.000 Nucleated RBC % (auto) 0.0 Anion Gap 11 L Estim Creat Clear Calc 79.0 Estimated GFR > 60 Fasting Glucose 102 H Calcium 9.3 Assessment and Plan (1) S/P total right hip arthroplasty: Status: Acute (2) CAD (coronary artery disease): Status: Acute Plan Patient is an 82-year-old male with a PMH significant for CAD with KS 25 years ago, PAD, COPD, BPH, and GERD who was admitted under Orthopedics to the hospital for total right HANNA.? Patient currently complaining of poorly-controlled pain, rates it as an 8/10.? Patient apparently received IV Tylenol to little effect.? Patient otherwise has no acute medical complaints. Total right HANNA on 01/08 management including pain and dvt prophylaxis by ortho Assymtomatic HypOtension-- likely from hypovolemia, resolved with IVF CAD Continue aspirin, statin --restart meds (metoprolol, nitrate) PAD Continue clopidogrel COPD Not in acute exacerbation Continue home inhalers BPH Continue tamsulosin, finasteride Mood disorder Continue bupropion Anemia -fairly stable. dvt prophy per ortho medically stable for dc and will sing off Time Spent With Patient Time: Total time managing care of this patient today ____ minutes. Quality Stroke Does the patient have a stroke diagnosis?: No VTE Prior VTE?: No VTE Risk Level:: Medical - moderate - high VTE Device Contraindication: N/A - Device Ordered VTE Drug Contraindication: N/A - Med Ordered
[2023-01-11] MEDS: 0.9 % Sodium Chloride Flush 3 ML SYRINGE IVFLUSH (09:24)
[2023-01-11] MEDS: Clopidogrel Bisulfate 75 MG TABLET PO (09:24)
[2023-01-11] MEDS: Docusate Sodium 100 MG CAPSULE PO (09:24)
[2023-01-11] MEDS: Celecoxib 200 MG CAPSULE PO (09:24)
[2023-01-11] MEDS: Aspirin 81 MG TAB.CHEW PO (09:24)
--- NOTE | 2023-01-11 14:05 | MHC.CM.PN ---
Addendum entered by Kiara Hawley 01/11/23 15:51: PT SEEN BY PT AND ORTHO THIS AFTERNOON HE NOW FEELS READY FOR DC CM MET WITH HIM AND HIS AT BEDSIDE THEY ARE AWARE [facility] WILL SEE PT TOMORROW AND SATURDAY, BUT NOT SATURDAY OR THE THEY ARE ALSO AWARE [facility] WILL NOT COME IN EVERY DAY THEY REPORT THE PT WILL BE TRANSPORTED HOME BY HIS AND THEY HAVE A FRIEND MEETING THEM THERE TO ASSIST HIM IN HIS ALSO STATES SHE HAD TWO GRAB BARS INSTALLED WHERE THE TWO STAIRS ARE IN THE MUD ROOM THIS MORNING FOLLOW UP IMM AND RIGHTS DELIVERED Original Note: PT REASSESSED BY PT/ORTHO DC CANCELED FOR TODAY DCP REMAINS HOME WITH [facility] FOR PT FAMILY TO TRANSPROT
--- NOTE | 2023-01-11 14:05 | PM.PNORT ---
Subjective Subjective Date of Service: 01/11/23 Interval history: POD3 s/p RTHA. Patient is resting in bed comfortably. Hypotensive episode overnight. Asymptomatic. Pain is managed. No additional complaints. Physical Exam Vital Signs: Vital Signs: Last Vital Signs Temp 97.1 F 01/11/23 11:47 Pulse 91 01/11/23 11:47 Resp 18 01/11/23 11:47 BP 130/65 01/11/23 11:47 Pulse Ox 94 01/11/23 11:47 O2 Del Method Room Air 01/11/23 11:47 O2 Flow Rate 2 01/09/23 03:25 BMI result Body Mass Index 27.3 Const: General: cooperative, healthy appearing and no acute distress Resp: Effort & Inspection: normal respiratory effort and able to speak in complete sentences Cardio: Rate: regular rate Peripheral pulses: Peripheral pulses 2+ throughout GI: Palpation (GI): Soft to palpation Skin: Lesions: no lesions Rashes: no rashes Extrem: Other: Right hip Aquacel is c/d/i. Able to Dorsi/Plantar flex. Staoles intact. No signs of infection. NVI. Procedures Date of Service Date of Service: 01/11/23 Progress Note: A&P Assessment and plan (1) S/P total right hip arthroplasty: Status: Acute Plan Continue pain mgmnt Resume Plavix and ASA 325mg for dvt ppx begin PT for RTHA Dispo planning-PT, pain mgmnt Time Spent With Patient Time: Total time managing care of this patient today ____ minutes. Quality Stroke Does the patient have a stroke diagnosis?: No VTE Prior VTE?: No VTE Risk Level:: Medical - moderate - high VTE Device Contraindication: N/A - Device Ordered VTE Drug Contraindication: N/A - Med Ordered
--- NOTE | 2023-01-21 13:44 | W.PM.OPN ---
Operative Note Operative Note Date of Service: 01/08/23 Narrative: Date of Service: 01/08/23 Pre-op diagnosis: Right hip OA Post-op diagnosis: same Procedure: Right HANNA Implants: [place] Trident2 64/lip liner Марина Accolade2 #8 132 deg with + 2.5 ceramic 36 FH Surgeon: Andrew Rahman MD Anesthesia: GETA and local Was an Box Maker used for this Procedure?: Yes Box Maker: Mamie Vega Estimated blood loss (mL): 200 IV fluids (mL): 1,000 Pathology: other Condition: stable Disposition: PACU Procedure in detail: Patient was brought into the operating room and placed in the right lateral decubitus position. All bony prominences were well padded and the limb was prepped and draped in standard sterile fashion. A time-out was called to identify proper site procedure proper surgeon IV antibiotics and 1 g of transaxemic acid were administered. I began by making a curvilinear incision over the posterolateral aspect of the greater trochanter. Dissection was taken down to the tensor fascia which was incised in line with the incision and a Charnley retractor was placed. Cautery was used to maintain hemostasis. The hip was internally rotated and the external rotators were identified. The vessels were cauterized and a full-thickness capsular/external rotator layer was developed starting just proximal to the piriformis. This layer was tagged and a dull Hohmann retractor was placed underneath the neck in the hip was dislocated. A neck cut was made 1 cm proximal to the lesser trochanter and the head and neck were removed and measured 60mm on the back table. I then removed the labrum and cauterized the fovea. I started with a 52 reamer and medialized to the inner table. I sequentially reamed up to a size 64 and impacted a 64mm cup at 45 degrees of inclination and 25 degrees of version. I then placed a 20 deg posterior lipped liner and turned my attention to the femur. I identified the piriformis insertion and used this as a starting point for my wally cutter. The medius tendon was protected with a Hibs retractor. A Charnley awl was inserted in the canal and a curved curette used to remove the lateral bone. I irrigated copiously. I then sequentially broached in the patient's natural version to a size 5 and placed my trial implants. I used a #8/132/+2.5 based on my pre-operative template. I trialed and was satisfied with the rangfe and stability. I removed all instrumentation and copiously irrigated. I placed my final femoral implant and again took the hip through range of motion and was satisfied with the stability and length. The final 2.5 implant was impacted in place and the hip reduced. I then irrigated for 3 minutes with iodine and placed 1 g of local transaxemic acid. I performed a capsular closure with 2.0 fiberwire, Adalberto's fascia with 0 Vicryl, subcuticular with 2-0 Vicryl and the skin with colton. Patient was placed into a sterile dressing. Patient was extubated brought to the recovery room in stable condition. There were no known complications.
== END 2023-01-11 17:05 | disposition home health service (06) | DRG 470 ==
LOC: HO.SSSA 09:57 → HO.S3 16:01
PROVIDERS: Orthopaedic Surgery; Physician Assistant; Admitting Provider Physician Assistant; PCP Internal Medicine Medical Oncology; Visit Provider Physician Assistant
PROC: 0SR903A Replacement of Right Hip Joint with Ceramic Synthetic Substitute, Uncemented, Open Approach (ICD-10-PCS; CPT 27130; principal; 2023-01-08 11:50)
DX: M16.11 Unilateral primary osteoarthritis, right hip (principal); I25.10 Atherosclerotic heart disease of native coronary artery without angina pectoris; J44.9 Chronic obstructive pulmonary disease, unspecified; G47.33 Obstructive sleep apnea (adult) (pediatric); F32.A Depression, unspecified; E78.5 Hyperlipidemia, unspecified; I95.81 Postprocedural hypotension; I25.2 Old myocardial infarction; I73.9 Peripheral vascular disease, unspecified; D64.89 Other specified anemias; K21.9 Gastro-esophageal reflux disease without esophagitis; N40.0 Benign prostatic hyperplasia without lower urinary tract symptoms; Z87.81 Personal history of (healed) traumatic fracture; Z79.02 Long term (current) use of antithrombotics/antiplatelets; Z79.82 Long term (current) use of aspirin; Z79.899 Other long term (current) drug therapy
CPT/HCPCS: 27130; 36415; 72170; 80048; 80051; 85025; 86850; 86900; 86901; 87640; 87641; 88304; 88311; 94640; 97110; 97116; 97162; 97166; 97530; 97535; C1776; J0131; J0690; J1100; J1170; J2405; J2795; J3010

== ENCOUNTER 2023-01-24 14:18 | Outpatient (AMB) | payer MEDICARE, OTHER, SELFPAY ==
--- NOTE | 2023-01-24 14:27 | MHC.OFFVIS ---
Intake Intake Visit Reasons: PO-LT AHNNA 01/08/23 NE Intake Note: Efrain is an 82 year old male who presents today for a post operative left HANNA on 01/08/23. Patient reports he is doing well, he has no concerns. He is requesting to have a couple more at home therapy sessions. Allergies N.K.D.A. Allergy (Uncoded 01/24/23 14:34) Unknown Medication List - Last Reconciled 01/27/23 by Lorne Castro PA-C acetaminophen 1,000 mg PO BID PRN acetaminophen (Tylenol) 650 mg (2 x 325 mg) PO Q6H 30 days aspirin 325 mg PO BEDTIME aspirin 325 mg PO BID 6 weeks atorvastatin 80 mg PO BEDTIME 90 days bupropion HCl 300 mg PO BEDTIME [calcium ] celecoxib 200 mg PO BEDTIME cholecalciferol (vitamin D3) (Vitamin D3) 25 mcg PO BEDTIME clopidogrel 75 mg PO BEDTIME CPAP (CPAP Machine/Device) As directed docusate sodium (Colace) 100 mg PO BEDTIME finasteride 5 mg PO BEDTIME isosorbide mononitrate ER 30 mg PO BEDTIME metoprolol succinate ER 50 mg PO BEDTIME multivitamin 1 tab PO BEDTIME neomycin-polymyxin B-dexameth 3.5mg/mL-10,000 unit/mL-0.1 % 1 drp ophthalmic (eye) BID PRN oxycodone 5 mg PO Q4H PRN pantoprazole 40 mg PO BEDTIME PRN tamsulosin (Flomax) 0.4 mg PO DAILY@1700 umeclidinium-vilanterol 62.5-25 mcg/actuation (Anoro Ellipta) 1 inh inhalation DAILY vitamin B complex (B Complex-Vitamin B12 tablet) 1 tab PO BEDTIME [zinc ] HPI PO-LT HANNA 01/08/23 NE HPI Details 82-year-old male who returns to the office today for post-op right HANNA, 01/08/[address] Rahman. He states he has no pain and is doing well overall. He continues to work with PT Ambulates with a walker. He has no other concerns. [facility] Medical History Aortic aneurysm CAD (coronary artery disease) CAD (coronary artery disease) Cataracts, bilateral COPD (chronic obstructive pulmonary disease) Depression Fracture of left distal radius HTN (hypertension) Hyperlipidemia MARISOL on CPAP Osteoarthritis of right hip Personal history of nicotine dependence Pulmonary nodules Wears hearing aid in both ears Surgical History History of cataract surgery (~2009) History of colonoscopy History of heart artery stent (~1997) Hx of vascular surgery Family History Mother No problems noted. Father No problems noted. 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 No erythema, no swelling around the incision site. No pain with ROM or hip flexion. Calf supple, nontender. NVI. Assessment & Plan Assessment & Plan (1) S/P total right hip arthroplasty: Code(s): Z96.641 - Presence of right artificial hip joint Plan Rachel removed, steri strips applied. He will begin to transition to Outpatient PT to continue working on Gait training and strength. No driving for another 4 weeks. He will require ppx abx for dental procedures. He will f/u in 4 weeks, sooner if needed. Patient Instructions: Scribed for Lorne Castro PA-C, by Ajit Mariscal medical technologist clinical, on 01/24/2023 at 2:30 PM EST. I, Lorne Castro PA-C, have personally reviewed and agree with the information entered by the scribe. Coding Level of Care Code Global (47487) Diagnoses S/P total right hip arthroplasty Z96.641
== END 2023-01-24 15:06 | disposition home or self-care (01) ==
PROVIDERS: Visit Provider Physician Assistant
DX: Z47.1 Aftercare following joint replacement surgery (principal); Z96.641 Presence of right artificial hip joint
CPT/HCPCS: 99024

== ENCOUNTER → 2023-01-24 14:18 | Outpatient (BNVA) | payer MEDICARE, OTHER, SELFPAY | PROVIDERS: Visit Provider Physician Assistant ==

== ENCOUNTER 2023-02-21 14:56 | Outpatient (AMB) | payer MEDICARE, OTHER, SELFPAY ==
--- NOTE | 2023-02-21 14:58 | A.OFFVIS_ITS ---
Intake Intake Visit Reasons: P.o- f/u LT HANNA 01/08/23 NE Intake Note: Efrain is an 82 year old male who presents today for a post operative left HANNA on 01/08/23. Patient reports he is doing well, has some soreness after his therapy session but over all he is doing well. States he is working on groin stiffness with his therapist. Allergies N.K.D.A. Allergy (Uncoded 02/21/23 15:01) Unknown HPI P.o- f/u LT HANNA 01/08/23 NE HPI Details 83-year-old male who returns to the office today for post-op right HANNA, 01/08/[address] Rahman. He continues to have mild soreness in his hip after therapy session but is doing well overall. He is also working on his groin stiffness with his therapist. He has no concerns today. [facility] Medical History Aortic aneurysm CAD (coronary artery disease) CAD (coronary artery disease) Cataracts, bilateral COPD (chronic obstructive pulmonary disease) Depression Fracture of left distal radius HTN (hypertension) Hyperlipidemia MARISOL on CPAP Osteoarthritis of right hip Personal history of nicotine dependence Pulmonary nodules Wears hearing aid in both ears Surgical History History of cataract surgery (~2009) History of colonoscopy History of heart artery stent (~1997) Hx of vascular surgery Family History Mother No problems noted. Father No problems noted. 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 No erythema, no swelling around the incision site. No pain with ROM or hip flexion. Calf supple, nontender. NVI. Assessment & Plan Assessment & Plan (1) S/P total right hip arthroplasty: Code(s): Z96.641 - Presence of right artificial hip joint Plan He will continue working on his therapy exercises focusing on glute strengthening. He will increase activity as tolerated and follow-up in 6 weeks with x-rays, sooner if needed. Patient Instructions: Scribed for Lorne Castro PA-C, by Ajit Mariscal vice president medical affairs, on 02/21/2023 at 2:00 PM EST. I, Lorne Castro PA-C, have personally reviewed and agree with the information entered by the scribe. Coding Level of Care Code Global (52803) Diagnoses S/P total right hip arthroplasty Z96.641
== END 2023-02-21 15:25 | disposition home or self-care (01) ==
LOC: HO.HOS 14:56
PROVIDERS: PCP Internal Medicine Medical Oncology; Visit Provider Physician Assistant
DX: Z96.641 Presence of right artificial hip joint (principal)
CPT/HCPCS: 99024

== ENCOUNTER → 2023-02-21 14:56 | Outpatient (BNVA) | payer MEDICARE, OTHER, SELFPAY | PROVIDERS: PCP Internal Medicine Medical Oncology; Visit Provider Physician Assistant ==

== ENCOUNTER 2023-03-20 10:20 | Outpatient (AMB) | payer MEDICARE, OTHER, SELFPAY ==
--- NOTE | 2023-03-20 10:49 | MHC.OFFVIS ---
Intake Vital Signs 03/20/23 10:50 Height 6 ft 4 in Weight 220 lb BMI 26.8 BP 110/70 Blood Pressure Location Lt brachial Position Sitting Pulse 76 Pulse Source Pulse Oximeter Pulse Oximetry (%) 96 Oxygen Delivery Method Room Air Intake Visit Reasons: COPD [place] Inspector Required: No Allergies N.K.D.A. Allergy (Uncoded 03/20/23 10:49) Unknown HPI HPI Comments History of Present Illness Details The patient is a 83-year-old gentleman with a known history of COPD and MARISOL. Apparently, he was a smoker many years ago and was able to quit completely about 8 years ago. Subsequently after that he started developing increasing shortness of breath. He did have a cardiac evaluation in the past and did have a stent placed many years ago. More recently because is worsening shortness of breath moderate severity he was referred to Cardiology. He did undergo cardiac catheterization and ultimately per report demonstrated that his stent was 80% close. It was attempted to be open but was not able to be manipulated. Overall he is in good cardioprotective medications. He does have pulmonary function studies from 2017 demonstrating severe COPD with significant air trapping hyperinflation. The patient also had a moderate diffusion impairment back 10. Patient also had a CT scan of the chest demonstrating interstitial lung changes consistent with interstitial lung disease primarily at the bases. He also had distribution of emphysema in the mid and also lower lung zones bring up the question of alpha-1 antitrypsin deficiency. In the meantime the patient also has been using CPAP. The CPAP therapy has been affecting beneficial. He does uses CPAP for more than 4 hours a night. He will bring CPAP in during the next visit so we can download and also adjusted accordingly. He does uses [employer]. Today the patient is here for pulmonary follow-up visit. Overall he is doing well. He continues on the Anoro but does not see any significant improvement. Still having dyspnea on exertion mvno-ag-cfhdmxol severity. We did talk about his pulmonary function studies demonstrating an FEV1 to FVC of 72% with significant small airways disease still suggest an obstructive physiology consistent with COPD. His diffusing capacity is decreased to 44% likely from emphysema. He has history of interstitial lung disease in other changes on CT scans. At this point will request a chest x-ray but most likely based on his abnormal CT scans in the past his abnormal PFTs and persistent symptoms on respiratory medicine will require a CT scan of the chest. We will try him on trelegy in the meantime he will follow up with a chest x-ray. He did bring his CPAP. Download with AHI 6 with central apneas elevated 3. Avg pressure 8.8. Decreased APAP 4-12 from 4-18. 07/29/2020 the patient has a telephone visit today. Overall the patient has been doing okay with the Trelegy inhaler. He has not required his rescue inhaler. He continues to have some dyspnea on exertion mild in severity. We did again talk about his pulmonary function studies demonstrating moderate COPD. Again, we did review his CT scan of the chest we have 1 from 2016 done at [facility] demonstrating numerous pulmonary nodules in addition to an aortic aneurysm and coronary artery disease. At this point the patient needs a repeat CT scan follow-up with him after the CT scans concern. He continues uses CPAP. The CPAP therapy continues to be affecting beneficial. 10/28/2020 the patient is here for pulmonary follow-up visit. He still recovering to fall fracturing his left arm hurting his hip. Has resulted in significant difficulties ambulating. Does have shortness of breath. Mild in severity. Has not noticed any significant improvement with the Trelegy inhaler. Therefore, would be reasonable to go back to the Anoro and avoid the risks of the inhaled corticosteroid, although minimal. He continues uses CPAP. Continue with current pressure settings. 11/10/2021 the patient is here for a pulmonary follow-up visit. He is having worsening symptoms with breathing. He does not feel like the Anoro has been working. He has been more short of breath. He does not have a rescue inhaler. He had been on Trelegy in the past. Likely will benefit from going back on Trelegy. He was taken off the Trelegy because of his musculoskeletal issues and his wanting to avoid steroids. But at this point the patient has worsening wheezing on examination. We did provide him with a nebulized treatment with DuoNeb. He did not improve significantly. Therefore, will provide with nebulized for him to continue using it at home and also will provide him with prednisone. Will have him follow-up in a few weeks. He may need imaging studies he is not any better. The meantime he did bring his CPAP. He has been using it every night. However is very old machine that he brought in. He has had for more than 7 years. The patient will need a replacement machine at this time. The machine appears to be in a poor state. I did download the data. It appears that his AHI still around 8-9. His average pressure is around 10 in the machine is set up for to 12. Seems like using Needs additional adjustments. Therefore I increased it to 8-16 with a ramp of 6. The patient will try the new settings. In the meantime I will request a new CPAP from his [employer] company to replace this old machine in poor shape. The electrical port was not working all the time. I noticed that there was a rubbery he is blocking it. I did remove it but now the blood is going to be lose. Again, will be requesting a new machine at this time. 12/08/2021 the patient is here for a pulmonary follow-up visit. Overall the patient has been doing well. He ended up taking just 1 day of prednisone and then stop. His respiratory status is better. I did agree with him based on his respiratory exam that he does not have to take any additional prednisone. Although, he should save it in case he needs in the future. Continues on the Anoro inhaler. He continue that once a day. In the meantime he did bring his CPAP. We did download the data and he seems to be working effectively for him. Although, is a very old machine and it does need to be replaced. Therefore, he still waiting for his replacement machine once 1 becomes available. Also to note he did have a coronary CT scan back in September 2020. He did have based on the lung windows a 4 mm pulmonary nodule and also extensive emphysema. He will require a CT scan of the chest to follow up the pulmonary nodule at this time. 06/01/2022 the patient is here for a pulmonary follow-up visit. Overall he is doing well from a respiratory status. He does not always use the Anoro but he tries to maintain some degree of routine. He has not required his rescue inhaler. He does get shortness of breath with activity specially going up a flight of stairs. Although he tries to go slow. Patient did have a repeat CT scan of the chest over the summer 2021 demonstrating stable pulmonary nodules which is reassuring. He does have extensive emphysema. He also has a interval increased diameter of the ascending aorta which in his case is the right-sided structure. He does have a certified nursing attendant. I will make note to the certified nursing attendant regarding the change. The patient's blood pressure stable. It is reassuring that is also tolerating CPAP. The CPAP therapy continues to be affecting beneficial. He is getting supplies regularly from his [employer] company. We did download the machine appears that his AHI slightly elevated about 5. But most of those events appeared to be central. Therefore will decrease the maximum pressure down from 12-11 and will increase the minimum pressure from 6-7 with hopes of narrowing the therapeutic pressures. His machine is older than 5 years but is still prefers to be working well. 03/20/2023 the patient is here for a pulmonary follow-up visit. Overall the patient has been doing well. Continues using the Anoro. This has been affected. He does not use it every day but he does notice improvement when he uses the. I did recommend he use it daily. In the meantime he also continues uses CPAP at nighttime. CPAP therapy continues to be affecting beneficial. He does use it for more than 4 hours a night. We did download the APAP. It appears that the degree of central apneas have yolanda rocket. It appears that he had the last week 19 episodes an hour of central sleep apnea and seems like the obstructive sleep apnea is controlled. He is set up APAP with a maximum pressure of 11. Will go ahead and switch him just to CPAP at 10 cm of water. He is going to have a nursing visit to read download the machine in the coming weeks. He continues to have significant central apneas he will require titration study because he may benefit from an ASV. He did have an echocardiogram this year demonstrating normal left ventricular function which is reassuring. Therefore, the patient will continue to use CPAP at the current settings and we will assess for the need for titration study in the coming weeks. [facility] Medical History (Updated 03/20/23 @ 23:00 by Valdo Haley MD) Aortic aneurysm CAD (coronary artery disease) CAD (coronary artery disease) Cataracts, bilateral Complex sleep apnea syndrome COPD (chronic obstructive pulmonary disease) Depression Fracture of left distal radius HTN (hypertension) Hyperlipidemia MARISOL on CPAP Osteoarthritis of right hip Personal history of nicotine dependence Pulmonary nodules Wears hearing aid in both ears Surgical History (Reviewed 02/21/23 @ 15:01 by Tennille Smith [facility]) History of cataract surgery (~2009) History of colonoscopy History of heart artery stent (~1997) Hx of vascular surgery Family History Mother No problems noted. Father No problems noted. 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[employer] [facility]nzocylu[facility]nxmai handed Review of Systems Const Reports daytime sleepiness and Denies night sweats ENT Denies change in voice, Denies lip swelling, Denies mouth pain, Reports nasal congestion, Reports nasal discharge and Denies tongue swelling Card Denies chest pain, Denies dyspnea and Reports dyspnea on exertion Resp Denies cough, Denies dyspnea and Reports dyspnea on exertion GI Denies abdominal pain Musc Reports arthralgias and Reports limited range of motion Neuro Denies Neuro-related abnormal movements Psych Denies no additional complaints Jarrett/Lymph Denies easy bleeding and Denies lymphadenopathy Aller/Immun Denies lip swelling and Denies tongue swelling Physical Exam Vital Signs: Last Vital Signs Pulse 76 03/20/23 10:50 BP 110/70 03/20/23 10:50 Pulse Ox 96 03/20/23 10:50 Oxygen Delivery Method Room Air 03/20/23 10:50 BMI result Body Mass Index 26.8 Const General: alert Eyes Pupils: Equal, round and reactive pupils present Neck Neck: Yes normal visual inspection, Yes full ROM and Yes no lymphadenopathy Chest Chest palpation & inspection: normal inspection of the chest Resp Auscultation: no wheezes and diminished lung sounds Cardio Rate: regular rate Rhythm: regular rhythm Heart sounds: S1 normal heart sound present and S2 normal heart sound present GI Palpation (GI): Soft to palpation and nontender Auscultation: normal bowel sounds Skin General skin exam: rashes and/or lesions noted Neuro Cranial nerves: Yes Equal, round and reactive pupils present Assessment & Plan Assessment & Plan (1) COPD (chronic obstructive pulmonary disease): Comment: Moderate severity Code(s): J44.9 - Chronic obstructive pulmonary disease, unspecified Qualifiers: COPD type: COPD with acute exacerbation Qualified Code(s): J44.1 - Chronic obstructive pulmonary disease with (acute) exacerbation (2) MARISOL on CPAP: Code(s): G47.33 - Obstructive sleep apnea (adult) (pediatric); Z99.89 - Dependence on other enabling machines and devices (3) Pulmonary nodules: Comment: Based on previous CT scans of the chest. stable Code(s): R91.8 - Other nonspecific abnormal finding of lung field (4) Complex sleep apnea syndrome: Code(s): G47.31 - Primary central sleep apnea Plan APAP 6-16, adjusted to 7-11 ramp 6. Needs a replacement APAP at this time. Has an elevated EPWORT 06/07. If the AHI continues to be elevated will request a titration study Continue Anoro daily MEL as needed F/U with Cardiology F/U 3-4 months Coding Level of Care Code Est Pt Level 4 (67390) Diagnoses COPD (chronic obstructive pulmonary disease) J44.1 COPD type: COPD with acute exacerbation MARIOSL on CPAP G47.33; Z99.89 Pulmonary nodules R91.8 Complex sleep apnea syndrome G47.31 Time Spent (min) 18
[2023-03-20 10:50] VITALS: BP 110/70; PULSE 76; O2SAT 96; BMI 26.8
== END 2023-03-20 11:09 | disposition home or self-care (01) ==
PROVIDERS: PCP Internal Medicine Medical Oncology; Visit Provider Hospitalist
DX: J44.1 Chronic obstructive pulmonary disease with (acute) exacerbation (principal); G47.33 Obstructive sleep apnea (adult) (pediatric); Z99.89 Dependence on other enabling machines and devices; R91.8 Other nonspecific abnormal finding of lung field; G47.31 Primary central sleep apnea
CPT/HCPCS: 99214

== ENCOUNTER → 2023-03-20 10:20 | Outpatient (BNVA) | payer MEDICARE, OTHER, SELFPAY | PROVIDERS: PCP Internal Medicine Medical Oncology; Visit Provider Hospitalist | DX: J44.1 Chronic obstructive pulmonary disease with (acute) exacerbation (principal); G47.33 Obstructive sleep apnea (adult) (pediatric); G47.31 Primary central sleep apnea; R91.8 Other nonspecific abnormal finding of lung field; Z87.891 Personal history of nicotine dependence; Z99.89 Dependence on other enabling machines and devices | CPT/HCPCS: 99212 ==

== ENCOUNTER 2023-04-04 08:28 | Outpatient (REF) | payer MEDICARE, OTHER, SELFPAY ==
--- NOTE | ~2023-04-04 | XR_ITS ---
EXAMINATION: XR HIP, RIGHT CLINICAL INFORMATION: Right hip pain COMPARISON: 01/08/2023 TECHNIQUE: Crosstable lateral view of the right hip. FINDINGS: Normal alignment of the right total hip arthroplasty in the lateral projection. No fracture. XR/XR hip RT 1V IMPRESSION: Normal alignment of the right total hip arthroplasty.
--- NOTE | ~2023-04-04 | XR_ITS ---
EXAMINATION: XR PELVIS CLINICAL INFORMATION: Hip pain. COMPARISON: Most recent pelvic radiograph dated 01/08/2023. TECHNIQUE: AP view of the pelvis. FINDINGS: Redemonstration of a right hip arthroplasty in unchanged anatomic alignment without evidence of hardware complication. Severe left hip joint space narrowing with subchondral sclerosis, acetabular subchondral cystic change, and marginal osteophytes, unchanged. No acute fracture or dislocation. Prominent atherosclerotic calcifications. XR/XR pelvis 1-2V IMPRESSION: 1. Right hip arthroplasty without evidence of complication. 2. Severe left hip osteoarthritis, unchanged.
--- NOTE | ~2023-04-04 | XR_ITS ---
EXAMINATION: XR BOTH KNEES AP STANDING XR RIGHT KNEE, 2 VIEWS CLINICAL INFORMATION: Right knee pain. COMPARISON: Most recent knee radiographs dated 11/14/2020. TECHNIQUE: Standing AP view of both knees and lateral and sunrise views of the right knee. FINDINGS: Right Knee: Severe joint space narrowing through the lateral aspect of the patellofemoral compartment with bony remodeling. Mild medial compartment joint space narrowing. Tricompartmental marginal osteophytes. No osseous erosion. No fracture or dislocation. Small joint effusion. Prominent atherosclerotic calcifications. Left Knee: Tiny lateral compartment marginal osteophytes. No acute fracture or dislocation. No concerning lytic or blastic osseous lesion. Atherosclerotic calcifications. XR/XR knee standing BI IMPRESSION: RIGHT KNEE: Tricompartmental osteoarthritis, most severe within the patellofemoral compartment. Small joint effusion. Findings are similar when compared to the prior radiographs. LEFT KNEE: Mild lateral compartment osteoarthritis.
--- NOTE | ~2023-04-04 | XR_ITS ---
EXAMINATION: XR BOTH KNEES AP STANDING XR RIGHT KNEE, 2 VIEWS CLINICAL INFORMATION: Right knee pain. COMPARISON: Most recent knee radiographs dated 11/14/2020. TECHNIQUE: Standing AP view of both knees and lateral and sunrise views of the right knee. FINDINGS: Right Knee: Severe joint space narrowing through the lateral aspect of the patellofemoral compartment with bony remodeling. Mild medial compartment joint space narrowing. Tricompartmental marginal osteophytes. No osseous erosion. No fracture or dislocation. Small joint effusion. Prominent atherosclerotic calcifications. Left Knee: Tiny lateral compartment marginal osteophytes. No acute fracture or dislocation. No concerning lytic or blastic osseous lesion. Atherosclerotic calcifications. XR/XR knee RT 2V IMPRESSION: RIGHT KNEE: Tricompartmental osteoarthritis, most severe within the patellofemoral compartment. Small joint effusion. Findings are similar when compared to the prior radiographs. LEFT KNEE: Mild lateral compartment osteoarthritis.
== END 2023-04-04 08:29 | disposition home or self-care (01) ==
LOC: HO.HOSX 08:28
PROVIDERS: Visit Provider Orthopaedic Surgery
DX: M17.11 Unilateral primary osteoarthritis, right knee (principal); M25.562 Pain in left knee; M25.551 Pain in right hip; Z96.641 Presence of right artificial hip joint
CPT/HCPCS: 20610; 72170; 73501; 73560; 73565; 99212; J1100

== ENCOUNTER 2023-04-04 09:09 | Outpatient (AMB) | payer MEDICARE, OTHER, SELFPAY ==
--- NOTE | 2023-04-04 09:48 | MHC.OFFVIS ---
Intake Intake Visit Reasons: P.O LT HANNA 01/08/23 NE w xrays Intake Note: Efrain is an 83 year old female who presents today for a post operative appointment s/p Left HANNA 01/08/23. Patient reports that he is doing very well, he did have 1 fall s/p surgery he landed on the right knee. HE reports that he is doing well since the fall. He has history of right knee pain and suspected that the kne was painful due to changes in gait secandary to the hip but he is now thinking that it is a problem of its own. Allergies N.K.D.A. Allergy (Uncoded 04/04/23 09:50) Unknown HPI P.O LT HANNA 01/08/23 NE w xrays HPI Details Zach is doing well almost 3 months status post right hip replacement. He does complain of right knee pain. He has known severe right knee patellofemoral OA. [facility] Medical History (Updated 03/20/23 @ 23:00 by Valdo Haley MD) Complex sleep apnea syndrome Wears hearing aid in both ears Personal history of nicotine dependence MAIRSOL on CPAP HTN (hypertension) CAD (coronary artery disease) Fracture of left distal radius Aortic aneurysm Pulmonary nodules COPD (chronic obstructive pulmonary disease) Osteoarthritis of right hip Cataracts, bilateral CAD (coronary artery disease) Hyperlipidemia Depression Surgical History Hx of vascular surgery History of heart artery stent (~1997) History of cataract surgery (~2009) History of colonoscopy Family History Mother No problems noted. Father No problems noted. 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 Lateral retropatellar tenderness to palpation and pain with dynamic step-down Office Procedures Joint Injection/Drain Joint Injection/Drain Details: Injected 1 mL of Decadron and 3 mL 1% lidocaine and 3 mL of 0.25% Marcaine. Site was prepped using aseptic technique. Patient tolerated the procedure well. Primary Site: right knee Approach Used: anterolateral Coding - Large joint Procedure code (CPT) selection complete Results Reviewed Results Reviewed: 04/04/23 09:54 BUPivacaine MPF 0.25 % [Sensorcaine-MPF 0.25% 10 ML] 10 ml .ROUTE .STK-MED ONE Lidocaine HCl 2 % MPF [Xylocaine 2 % MPF] 5 ml .ROUTE .STK-MED ONE dexAMETHasone sod phosphate [Decadron] 4 mg .ROUTE .STK-MED ONE I personally reviewed relevant radiographs. Right HANNA in expected post operative position with no hardware complications or evidence of loosening Right knee wihth severe PF OA Assessment & Plan Assessment & Plan (1) S/P total right hip arthroplasty: Code(s): Z96.641 - Presence of right artificial hip joint Plan: Doing well status post right hip arthroplasty. Continue activity as tolerated. (2) Primary localized osteoarthritis of right knee: Code(s): M17.11 - Unilateral primary osteoarthritis, right knee Plan: Severe OA right knee. He functions well except with standing from a seated position and stairs but he is willing to except these limitations rather than undergo surgery which I agree with. I injected his right knee today. Orders: Orders XR pelvis 1-2V Today M25.559 - Pain in unspecified hip XR knee standing BI Today M25.569 - Pain in unspecified knee XR knee RT 2V Today M25.569 - Pain in unspecified knee XR hip LT 1V Today M25.552 - Pain in left hip Coding Level of Care Code Est Pt Level 3 (85337) Global (32590) Diagnoses S/P total right hip arthroplasty Z96.641 Primary localized osteoarthritis of right knee M17.11 CPT Codes Coding - Large joint: 36868 - Large joint ([id number])
== END 2023-04-04 10:10 | disposition home or self-care (01) ==
PROVIDERS: PCP Internal Medicine Medical Oncology; Visit Provider Orthopaedic Surgery
DX: M17.11 Unilateral primary osteoarthritis, right knee (principal); Z96.641 Presence of right artificial hip joint
CPT/HCPCS: 20610; 99213

== ENCOUNTER 2023-06-03 09:29 | Outpatient (AMB) | payer MEDICARE, OTHER, SELFPAY ==
[2023-06-03 09:31] VITALS: BP 110/76; PULSE 76; BMI 27.4
--- NOTE | 2023-06-03 09:31 | A.OFFVIS_ITS ---
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 Allergy (Uncoded 04/04/23 09:50) Unknown Medication List - Last Reconciled 06/03/23 by Jhonathan Gama MD aspirin 325 mg PO BID 6 weeks atorvastatin 80 mg PO BEDTIME 90 days bupropion HCl 450 mg PO BEDTIME [calcium ] cholecalciferol (vitamin D3) (Vitamin D3) 25 mcg PO BEDTIME clopidogrel 75 mg PO BEDTIME CPAP (CPAP Machine/Device) As directed docusate sodium (Colace) 100 mg PO BEDTIME finasteride 5 mg PO BEDTIME gabapentin 100 mg PO DAILY isosorbide mononitrate ER 30 mg PO BEDTIME metoprolol succinate ER 50 mg PO BEDTIME multivitamin 1 tab PO BEDTIME neomycin-polymyxin B-dexameth 3.5mg/mL-10,000 unit/mL-0.1 % 1 drp ophthalmic (eye) BID PRN pantoprazole 40 mg PO BEDTIME PRN tamsulosin (Flomax) 0.4 mg PO DAILY@1700 umeclidinium-vilanterol 62.5-25 mcg/actuation (Anoro Ellipta) 1 inh inhalation DAILY vitamin B complex (B Complex-Vitamin B12 tablet) 1 tab PO BEDTIME [zinc ] HPI HPI Comments History of Present Illness Details Efrain comes for follow-up. He denies any cardiovascular symptoms. Underwent hip surgery which has improved his mobility. He complains of having lightheadedness especially when he changes position the morning. He takes all his medications. Denies any anginal symptoms. Denies any prolonged palpitation irregular heartbeat. Denies any shortness of breath, orthopnea, PND. Takes all his medications. He is currently taking finasteride to improve hair growth. [facility] Medical History (Updated 06/03/23 @ 12:33 by Jhonathan Gama MD) CAD (coronary artery disease) Complex sleep apnea syndrome Wears hearing aid in both ears Personal history of nicotine dependence MARISOL on CPAP HTN (hypertension) Fracture of left distal radius Aortic aneurysm Pulmonary nodules COPD (chronic obstructive pulmonary disease) Osteoarthritis of right hip Cataracts, bilateral CAD (coronary artery disease) Hyperlipidemia Depression Surgical History Hx of vascular surgery History of heart artery stent (~1997) History of cataract surgery (~2009) History of colonoscopy Family History Mother No problems noted. Father No problems noted. 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[facility]dmlkjei-mlxun handed Review of Systems Const Denies chills, Denies fatigue, Denies fever(s), Denies frequent falls, Denies weakness, Denies weight gain and Denies weight loss ENT Denies dizziness Card Denies chest pain, Denies leg edema, Denies lightheadedness, Denies palpitations, Denies dyspnea, Denies dyspnea on exertion, Denies orthopnea and Denies other (loss of consciousness) Resp Denies cough, Denies dyspnea and Denies dyspnea on exertion GI Denies hematochezia and Denies change in stool character Musc Denies abnormal gait, Denies muscle weakness, Denies numbness, Denies radiating pain into limb and Denies tingling Neuro Denies abnormal gait, Denies dizziness, Denies frequent falls, Denies numbness, Denies tingling and Denies weakness Endo Denies fatigue and Denies palpitations Physical Exam Vital Signs: Last Vital Signs Pulse 76 06/03/23 09:31 BP 110/76 06/03/23 09:31 BMI result Body Mass Index 27.4 Const General: cooperative, comfortable, alert, awake and well groomed Nutritional Appearance: average body habitus Orientation/consciousness: patient oriented x3 Limitations: no limitations Neck Neck: Yes trachea midline, Yes supple and Yes no JVD Resp Effort & Inspection: normal respiratory effort Auscultation: clear to auscultation bilaterally Cardio Jugular venous distension: no JVD Palpation: normal PMI Rate: regular rate Rhythm: regular rhythm Heart sounds: S1 normal heart sound present and S2 normal heart sound present Skin General skin exam: no rashes or lesions noted and ecchymosis Neuro General: patient oriented x3 and no focal motor deficits Extrem General: Yes no clubbing, cyanosis or edema Psych Appearance: grossly normal Assessment & Plan Assessment & Plan (1) CAD (coronary artery disease): Code(s): I25.10 - Atherosclerotic heart disease of [place] coronary artery without angina pectoris Plan: CAD with prior RCA stenting with no current symptoms of angina. He does have limited claudication related to his PVD although these are not life-limiting. He will continue follow with vascular surgery about the same. Given his orthostatic lightheadedness at this point time advised him to stop his isosorbide as he was already taking at nighttime which is an appropriate timing. Continue metoprolol therapy. Continue high-intensity statin therapy. There is no indication for dual antiplatelet therapy. Will discontinue the the same. Lifelong low-dose aspirin is advised. Advised to maintain activity as tolerated advised to call me with any new symptoms. (2) Aortic aneurysm: Comment: Based on previous CT scans. Code(s): I71.9 - Aortic aneurysm of unspecified site, without rupture Plan: Ascending aortic aneurysm which is moderate in severity. Currently not having any symptoms related to it. Management of this was discussed. Currently not requiring any surgical interventions. Continue monitor annually by echocardiogram. Advised to avoid sudden strenuous isometric exercise. Continue aggressive blood pressure control which is currently well optimized. Continue metoprolol therapy. Continue aggressive vascular risk factor modification above. Follow up in the clinic in 6 months time, sooner p.r.n.. Thank you for allowing me to partake in his care Orders: Orders CA echo transthoracic complete 4 Months I71.9 - Aortic aneurysm of unspecified site, without rupture Lipid Panel 4 Months I25.10 - Atherosclerotic heart disease of [place] coronary artery without angina pectoris, I71.9 - Aortic aneurysm of unspecified site, without rupture Medications: New metoprolol succinate ER 50 mg PO BEDTIME 90 tabs 3RF Refilled atorvastatin 80 mg PO BEDTIME 90 days 90 tabs 3RF Coding Level of Care Code Est Pt Level 4 (45488) Diagnoses CAD (coronary artery disease) I25.10 Aortic aneurysm I71.9
== END 2023-06-03 10:11 | disposition home or self-care (01) ==
PROVIDERS: Visit Provider Internal Medicine Cardiovascular Disease
DX: I25.10 Atherosclerotic heart disease of native coronary artery without angina pectoris (principal); I71.9 Aortic aneurysm of unspecified site, without rupture
CPT/HCPCS: 99214

== ENCOUNTER → 2023-06-03 09:29 | Outpatient (BNVA) | payer MEDICARE, OTHER, SELFPAY | PROVIDERS: Visit Provider Internal Medicine Cardiovascular Disease | DX: I25.10 Atherosclerotic heart disease of native coronary artery without angina pectoris (principal); I71.9 Aortic aneurysm of unspecified site, without rupture | CPT/HCPCS: 99212 ==

== ENCOUNTER 2023-06-11 10:53 | Outpatient (REF) | payer MEDICARE, OTHER, SELFPAY ==
[2023-06-11 11:15] LABS: MANUAL DIFF FLAG NO
[2023-06-11 11:33] LABS: Basophils Percent Auto 0.6 % (0-2); Eosinophils Absolute Auto 0.3 X10*3/uL (0.0-0.4); Eosinophils Percent Auto 4.5 % (0-4); Hematocrit 40.9 % (42.0-52.0); Hemoglobin 13.3 g/dl (14.0-18.0); Imm Gran Abs Auto 0.02 X10*3/uL (0.00-0.03); Imm Gran Pct Auto 0.3 % (0.0-0.4); Lymphocytes Absolute Auto 1.8 X10*3/uL (1.2-4.9); Lymphocytes Percent Auto 26.3 % (20-40); Mean Corpuscular HGB Conc 32.5 g/dl (31.0-36.0); Mean Corpuscular Hemoglobin 31.2 pg (27.0-33.0); Mean Platelet Volume 9.7 fL (9.4-12.4); Monocytes Absolute Auto 0.8 X10*3/uL (0.1-1.2); Monocytes Percent Auto 10.9 % (2-11); Neutrophils Percent Auto 57.4 % (45-73); Platelet Count 218 X10*3/uL (160-400); Red Blood Count 4.26 X10*6/uL (4.60-5.80); Red Cell Distribution Width 14.1 % (11.0-16.0)
[2023-06-11 12:36] LABS: Alanine Aminotransferase 15 U/L (0-40); Albumin Level 3.8 g/dL (3.5-5.0); Alkaline Phosphatase 84 U/L (39-117); Anion Gap 9 (12-20); Aspartate Amino Transferase 21 U/L (5-37); Blood Urea Nitrogen 30 mg/dL (9-16); Calcium 9.5 mg/dL (8.4-10.2); Carbon Dioxide 28 mmol/L (22-29); Chloride 109 mmol/L (96-108); Cholesterol 106 mg/dL (<200); Estimated Glomerular Filt Rate 56; Glucose Fasting 94 mg/dL (60-99); HDL Cholesterol 31 mg/dL (>40); LDL Cholesterol Calculated 53 mg/dL (<100); Potassium 4.3 mmol/L (3.3-5.1); Sodium 142 mmol/L (135-145); Total Protein 6.6 g/dL (6.5-8.0); Triglycerides 114 mg/dL (<150)
== END 2023-06-11 10:54 | disposition home or self-care (01) ==
LOC: HO.LAB 10:53
PROVIDERS: PCP Internal Medicine Medical Oncology; Visit Provider Internal Medicine Medical Oncology
DX: Z00.00 Encounter for general adult medical examination without abnormal findings (principal); E66.3 Overweight
CPT/HCPCS: 36415; 80053; 80061; 85025

== ENCOUNTER 2023-06-19 09:26 | Outpatient (AMB) | payer MEDICARE, OTHER, SELFPAY ==
[2023-06-19 10:02] VITALS: PULSE 86; O2SAT 95; BMI 27.4
--- NOTE | 2023-06-19 10:02 | MHC.OFFVIS ---
Intake Vital Signs 06/19/23 10:02 Height 6 ft 4 in Weight 225 lb BMI 27.4 Pulse 86 Pulse Source Pulse Oximeter Pulse Oximetry (%) 95 Oxygen Delivery Method Room Air Intake Visit Reasons: COPD Allergies N.K.D.A. Allergy (Uncoded 06/19/23 10:03) Unknown HPI HPI Comments History of Present Illness Details The patient is a 83-year-old gentleman with a known history of COPD and MARISOL. Apparently, he was a smoker many years ago and was able to quit completely about 8 years ago. Subsequently after that he started developing increasing shortness of breath. He did have a cardiac evaluation in the past and did have a stent placed many years ago. More recently because is worsening shortness of breath moderate severity he was referred to Cardiology. He did undergo cardiac catheterization and ultimately per report demonstrated that his stent was 80% close. It was attempted to be open but was not able to be manipulated. Overall he is in good cardioprotective medications. He does have pulmonary function studies from 2017 demonstrating severe COPD with significant air trapping hyperinflation. The patient also had a moderate diffusion impairment back 10. Patient also had a CT scan of the chest demonstrating interstitial lung changes consistent with interstitial lung disease primarily at the bases. He also had distribution of emphysema in the mid and also lower lung zones bring up the question of alpha-1 antitrypsin deficiency. In the meantime the patient also has been using CPAP. The CPAP therapy has been affecting beneficial. He does uses CPAP for more than 4 hours a night. He will bring CPAP in during the next visit so we can download and also adjusted accordingly. He does uses [employer]. 03/20/2023 the patient is here for a pulmonary follow-up visit. Overall the patient has been doing well. Continues using the Anoro. This has been affected. He does not use it every day but he does notice improvement when he uses the. I did recommend he use it daily. In the meantime he also continues uses CPAP at nighttime. CPAP therapy continues to be affecting beneficial. He does use it for more than 4 hours a night. We did download the APAP. It appears that the degree of central apneas have yolanda rocket. It appears that he had the last week 19 episodes an hour of central sleep apnea and seems like the obstructive sleep apnea is controlled. He is set up APAP with a maximum pressure of 11. Will go ahead and switch him just to CPAP at 10 cm of water. He is going to have a nursing visit to read download the machine in the coming weeks. He continues to have significant central apneas he will require titration study because he may benefit from an ASV. He did have an echocardiogram this year demonstrating normal left ventricular function which is reassuring. Therefore, the patient will continue to use CPAP at the current settings and we will assess for the need for titration study in the coming weeks. 06/19/2023 the patient is here for a pulmonary follow-up visit. The patient has been doing well from a respiratory status. Is bringing responded well to the Anoro. He does not use it all the time but he typically uses it between 20 3 times a week. He has not had to use his rescue inhaler. He also has been using his CPAP. He does use it for more than 4 hours a night. The therapy is very beneficial although does not appear to be very effective for him as his AHI continues to be elevated above 10. He did bring the machine today and I did downloaded. His set up at CPAP of 10 based on trying to control is central sleep apnea. By switched over again to an APAP 9-12 to see high response to that but at the end of the day he needs a sleep titration study at this time to address the question of his complex sleep apnea in needing for an ASV setting. [facility] Medical History (Updated 06/03/23 @ 12:33 by Jhonathan Gama MD) CAD (coronary artery disease) Complex sleep apnea syndrome Wears hearing aid in both ears Personal history of nicotine dependence MARISOL on CPAP HTN (hypertension) Fracture of left distal radius Aortic aneurysm Pulmonary nodules COPD (chronic obstructive pulmonary disease) Osteoarthritis of right hip Cataracts, bilateral CAD (coronary artery disease) Hyperlipidemia Depression Surgical History Hx of vascular surgery History of heart artery stent (~1997) History of cataract surgery (~2009) History of colonoscopy Family History Mother No problems noted. Father No problems noted. 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[employer] [facility]bqogtvu-gtrucgl-mhgha handed Review of Systems Const Reports daytime sleepiness and Denies night sweats ENT Denies change in voice, Denies lip swelling, Denies mouth pain, Reports nasal congestion, Reports nasal discharge and Denies tongue swelling Card Denies chest pain, Denies dyspnea and Reports dyspnea on exertion Resp Denies cough, Denies dyspnea and Reports dyspnea on exertion GI Denies abdominal pain Musc Reports arthralgias and Reports limited range of motion Neuro Denies Neuro-related abnormal movements Psych Denies no additional complaints Jarrett/Lymph Denies easy bleeding and Denies lymphadenopathy Aller/Immun Denies lip swelling and Denies tongue swelling Physical Exam Vital Signs: Last Vital Signs Pulse 86 06/19/23 10:02 Pulse Ox 95 06/19/23 10:02 Oxygen Delivery Method Room Air 06/19/23 10:02 BMI result Body Mass Index 27.4 Const General: alert Eyes Pupils: Equal, round and reactive pupils present Neck Neck: Yes normal visual inspection, Yes full ROM and Yes no lymphadenopathy Chest Chest palpation & inspection: normal inspection of the chest Resp Auscultation: no wheezes and diminished lung sounds Cardio Rate: regular rate Rhythm: regular rhythm Heart sounds: S1 normal heart sound present and S2 normal heart sound present GI Palpation (GI): Soft to palpation and nontender Auscultation: normal bowel sounds Skin General skin exam: rashes and/or lesions noted Neuro Cranial nerves: Yes Equal, round and reactive pupils present Assessment & Plan Assessment & Plan (1) COPD (chronic obstructive pulmonary disease): Comment: Moderate severity Code(s): J44.9 - Chronic obstructive pulmonary disease, unspecified Qualifiers: COPD type: COPD with acute exacerbation Qualified Code(s): J44.1 - Chronic obstructive pulmonary disease with (acute) exacerbation (2) MARISOL on CPAP: Code(s): G47.33 - Obstructive sleep apnea (adult) (pediatric); Z99.89 - Dependence on other enabling machines and devices (3) Pulmonary nodules: Comment: Based on previous CT scans of the chest. stable Code(s): R91.8 - Other nonspecific abnormal finding of lung field (4) Complex sleep apnea syndrome: Code(s): G47.31 - Primary central sleep apnea Plan APAP 9-12, Has an elevated EPWORT 11/24 and AHI >15. Needs a titration titration study to assess for ASV Continue Anoro daily MEL as needed F/U with Cardiology F/U 3-4 months Orders: Orders RT PSG in-lab sleep titration Today G47.31 - Primary central sleep apnea Coding Level of Care Code Est Pt Level 4 (49166) Diagnoses Chronic obstructive pulmonary disease with acute exacerbation J44.1 COPD type: COPD with acute exacerbation MARISOL on CPAP G47.33; Z99.89 Pulmonary nodules R91.8 Complex sleep apnea syndrome G47.31 Time Spent (min) 17
== END 2023-06-19 10:21 | disposition home or self-care (01) ==
PROVIDERS: PCP Internal Medicine Medical Oncology; Visit Provider Hospitalist
DX: J44.1 Chronic obstructive pulmonary disease with (acute) exacerbation (principal); G47.33 Obstructive sleep apnea (adult) (pediatric); Z99.89 Dependence on other enabling machines and devices; R91.8 Other nonspecific abnormal finding of lung field; G47.31 Primary central sleep apnea
CPT/HCPCS: 99214

== ENCOUNTER → 2023-06-19 09:26 | Outpatient (BNVA) | payer MEDICARE, OTHER, SELFPAY | PROVIDERS: PCP Internal Medicine Medical Oncology; Visit Provider Hospitalist | DX: J44.1 Chronic obstructive pulmonary disease with (acute) exacerbation (principal); G47.33 Obstructive sleep apnea (adult) (pediatric); G47.31 Primary central sleep apnea; R91.8 Other nonspecific abnormal finding of lung field; Z99.89 Dependence on other enabling machines and devices | CPT/HCPCS: 99212 ==

== ENCOUNTER → 2023-06-30 20:30 | Outpatient (REF) | payer MEDICARE, OTHER, SELFPAY | LOC: HO.SL 20:30 | PROVIDERS: PCP Internal Medicine Medical Oncology; Visit Provider Hospitalist | DX: G47.31 Primary central sleep apnea (principal) | CPT/HCPCS: 95811 ==

== ENCOUNTER → 2023-06-30 22:19 | Outpatient (BNV) | payer MEDICARE, OTHER, SELFPAY | PROVIDERS: PCP Internal Medicine Medical Oncology; Visit Provider Internal Medicine | DX: G47.33 Obstructive sleep apnea (adult) (pediatric) (principal) | CPT/HCPCS: 95811 ==

== ENCOUNTER 2023-07-04 08:10 | Outpatient (REF) | payer MEDICARE, OTHER, SELFPAY | END 2023-07-04 08:11 | disposition home or self-care (01) | LOC: HO.HOSX 08:10 | PROVIDERS: Visit Provider Orthopaedic Surgery | DX: M25.551 Pain in right hip (principal); M25.552 Pain in left hip | CPT/HCPCS: 72170; 99212 ==

== ENCOUNTER 2023-07-04 09:05 | Outpatient (AMB) | payer MEDICARE, OTHER, SELFPAY ==
--- NOTE | 2023-07-04 09:12 | MHC.OFFVIS ---
Intake Vital Signs 07/04/23 09:13 Height 6 ft 4 in Weight 224 lb BMI 27.3 Intake Visit Reasons: OV-LT HANNA 01/08/23 NE w xrays Intake Note: Efrain is an 83 year old female who presents today for a post operative appointment s/p Left HANNA 01/08/23. His right knee was also injected at his last appointment on 04/04/23 Allergies N.K.D.A. Allergy (Uncoded 06/19/23 10:03) Unknown HPI OV-LT HANNA 01/08/23 NE w xrays HPI Details Zach is an 83 year old man who returns ~6 months S/P left HANNA, and ~3 months S/p right knee injection. He has known severe right knee patellofemoral OA. He says he is doing well in regards to his hip. He denies any pain and his happy with the results of his surgery. In regards to his right knee, he says the last injection was helpful but he still is worried about giving way. [facility] Medical History CAD (coronary artery disease) Complex sleep apnea syndrome Wears hearing aid in both ears Personal history of nicotine dependence MARISOL on CPAP HTN (hypertension) Fracture of left distal radius Aortic aneurysm Pulmonary nodules COPD (chronic obstructive pulmonary disease) Osteoarthritis of right hip Cataracts, bilateral CAD (coronary artery disease) Hyperlipidemia Depression Surgical History Hx of vascular surgery History of heart artery stent (~1997) History of cataract surgery (~2009) History of colonoscopy Family History Mother No problems noted. Father No problems noted. 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[facility] [employer] [facility]ikwjqt-oydcvuj-epyzi handed Review of Systems Const All systems reviewed & are unremarkable except as noted in HPI and below Physical Exam Vital Signs: BMI result Body Mass Index 27.3 Const General: no acute distress, alert and awake Orientation/consciousness: patient oriented x3 HEENT Head: Yes normocephalic and Yes atraumatic Eyes EOM: EOMs intact bilaterally Resp Effort & Inspection: normal respiratory effort and able to speak in complete sentences Cardio Jugular venous distension: no JVD Skin General skin exam: turgor normal Rashes: no rashes Neuro General: patient oriented x3 Extrem Other: No pain with hip ROM no gait antalgia Psych Appearance: grossly normal Affect: normal affect Attitude: cooperative Results Reviewed Results Reviewed: I personally reviewed relevant radiographs Left total hip arthroplasty in expected post operative position with no hardware complications or evidence of loosening Right knee severe PF OA Assessment & Plan Assessment & Plan (1) S/P total right hip arthroplasty: Code(s): Z96.641 - Presence of right artificial hip joint Plan: Doing well Fall precautions discussed given neuropathy and light headedness Plan Scribed for Andrew Rahman MD by Gene Maravilla, medical records auditor, on 07/04/23 at 9:20 AM, EST. Orders: Orders XR pelvis 1-2V Today M25.559 - Pain in unspecified hip Coding Level of Care Code Est Pt Level 3 (18258) Diagnoses S/P total right hip arthroplasty Z96.641
[2023-07-04 09:13] VITALS: BMI 27.3
== END 2023-07-04 09:45 | disposition home or self-care (01) ==
PROVIDERS: PCP Internal Medicine Medical Oncology; Visit Provider Orthopaedic Surgery
DX: Z47.1 Aftercare following joint replacement surgery (principal); Z96.641 Presence of right artificial hip joint
CPT/HCPCS: 99213

== ENCOUNTER → 2023-10-02 08:30 | Outpatient (REF) | payer MEDICARE, OTHER, SELFPAY | LOC: HO.CARD 08:30 | PROVIDERS: PCP Internal Medicine Medical Oncology; Visit Provider Internal Medicine Cardiovascular Disease | DX: Z13.89 Encounter for screening for other disorder (principal) ==

== ENCOUNTER 2023-11-11 09:12 | Outpatient (AMB) | payer MEDICARE, OTHER, SELFPAY ==
[2023-11-11 09:14] VITALS: BP 122/74; PULSE 74; O2SAT 97; BMI 27.6
--- NOTE | 2023-11-11 09:14 | A.OFFVIS_ITS ---
Vital Signs 11/11/23 09:14 Height 6 ft 4 in Weight 227 lb 1.218 oz BMI 27.6 BP 122/74 Blood Pressure Location Lt brachial Position Sitting Pulse 74 Pulse Source Pulse Oximeter Pulse Oximetry (%) 97 Oxygen Delivery Method Room Air Intake Visit Reasons: COPD/Titration Study Follow Up Content Strategist Required: No Licensing Registration Examiner: Licensing Registration Examiner offered & declined Accompanied by: Self / Same As Patient Allergies N.K.D.A. Allergy (Uncoded 11/11/23 09:19) Unknown Medication List - Last Reconciled 11/11/23 by Mary Jane Finley LPN aspirin 325 mg PO BID 6 weeks atorvastatin 80 mg PO BEDTIME 90 days bupropion HCl XL 450 mg PO BEDTIME bupropion HCl XL 150 mg PO QAM [calcium ] cholecalciferol (vitamin D3) (Vitamin D3) 25 mcg PO BEDTIME CPAP (CPAP Machine/Device) As directed docusate sodium (Colace) 100 mg PO BEDTIME finasteride 5 mg PO DAILY gabapentin 200 mg PO TID metoprolol succinate ER 50 mg PO BEDTIME multivitamin 1 tab PO BEDTIME neomycin-polymyxin B-dexameth 3.5mg/mL-10,000 unit/mL-0.1 % 1 drp ophthalmic (eye) BID PRN pantoprazole 40 mg PO BEDTIME PRN umeclidinium-vilanterol 62.5-25 mcg/actuation (Anoro Ellipta) 1 inh inhalation DAILY vitamin B complex (B Complex-Vitamin B12 tablet) 1 tab PO BEDTIME [zinc ] HPI Comments Details: The patient is a 83-year-old gentleman with a known history of COPD and MARISOL. Apparently, he was a smoker many years ago and was able to quit completely about 8 years ago. Subsequently after that he started developing increasing shortness of breath. He did have a cardiac evaluation in the past and did have a stent placed many years ago. More recently because is worsening shortness of breath moderate severity he was referred to Cardiology. He did undergo cardiac catheterization and ultimately per report demonstrated that his stent was 80% close. It was attempted to be open but was not able to be manipulated. Overall he is in good cardioprotective medications. He does have pulmonary function studies from 2017 demonstrating severe COPD with significant air trapping hyperinflation. The patient also had a moderate diffusion impairment back 10. Patient also had a CT scan of the chest demonstrating interstitial lung changes consistent with interstitial lung disease primarily at the bases. He also had distribution of emphysema in the mid and also lower lung zones bring up the question of alpha-1 antitrypsin deficiency. In the meantime the patient also has been using CPAP. The CPAP therapy has been affecting beneficial. He does uses CPAP for more than 4 hours a night. He will bring CPAP in during the next visit so we can download and also adjusted accordingly. He does uses [employer]. 03/20/2023 the patient is here for a pulmonary follow-up visit. Overall the patient has been doing well. Continues using the Anoro. This has been affected. He does not use it every day but he does notice improvement when he uses the. I did recommend he use it daily. In the meantime he also continues uses CPAP at nighttime. CPAP therapy continues to be affecting beneficial. He does use it for more than 4 hours a night. We did download the APAP. It appears that the degree of central apneas have yolanda rocket. It appears that he had the last week 19 episodes an hour of central sleep apnea and seems like the obstructive sleep apnea is controlled. He is set up APAP with a maximum pressure of 11. Will go ahead and switch him just to CPAP at 10 cm of water. He is going to have a nursing visit to read download the machine in the coming weeks. He continues to have significant central apneas he will require titration study because he may benefit from an ASV. He did have an echocardiogram this year demonstrating normal left ventricular function which is reassuring. Therefore, the patient will continue to use CPAP at the current settings and we will assess for the need for titration study in the coming weeks. 06/19/2023 the patient is here for a pulmonary follow-up visit. The patient has been doing well from a respiratory status. Is bringing responded well to the Anoro. He does not use it all the time but he typically uses it between 20 3 times a week. He has not had to use his rescue inhaler. He also has been using his CPAP. He does use it for more than 4 hours a night. The therapy is very beneficial although does not appear to be very effective for him as his AHI continues to be elevated above 10. He did bring the machine today and I did downloaded. His set up at CPAP of 10 based on trying to control is central sleep apnea. By switched over again to an APAP 9-12 to see high response to that but at the end of the day he needs a sleep titration study at this time to address the question of his complex sleep apnea in needing for an ASV setting. 11/11/2023 the patient is here for a pulmonary follow-up visit. Overall he is doing okay. Complains of dyspnea on exertion. Also bringing up phlegm which is whitish in color. Sysl-yo-xbrxijhk severity. He has been on Anoro. He does find partially helpful. He is concerned about he can hold steroids. The patient did have a CT scan of the chest IV contrast done at [facility] recently 2023 to assess his aneurysms. I personally reviewed. It appears he has a stable pulmonary nodule has not changed. Moderate degree of emphysema noted. 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 This is related to his COPD and hyperinflation of the lungs. He also has evidence of chronic bronchitis. He may benefit from inhaled steroids but I will keep him separate so he can take it during his worsening episodes and then he can back off on the steroids when he is doing okay. He also has some still some daytime drowsiness. His Fayette score is elevated 10/24. The patient did have a diagnosis of sleep apnea for many years and then we did a sleep study showing no evidence of any sleep apnea. He has been without his machine but we still reluctant specially after years and years CPAP therapy. Therefore, I will be reasonable to repeat his sleep study. At this time he is under going to go some vascular interventions will hold off at this time so he can have his vascular procedures completed. When he is done with that then we can look into doing a sleep study sometime in the fall of 2023. Will follow-up after the sleep study. [facility] Medical History CAD (coronary artery disease) Complex sleep apnea syndrome Wears hearing aid in both ears Personal history of nicotine dependence MARISOL on CPAP HTN (hypertension) Fracture of left distal radius Aortic aneurysm Pulmonary nodules COPD (chronic obstructive pulmonary disease) Osteoarthritis of right hip Cataracts, bilateral CAD (coronary artery disease) Hyperlipidemia Depression Surgical History Hx of vascular surgery History of heart artery stent (~1997) History of cataract surgery (~2009) History of colonoscopy Family History Mother No problems noted. Father No problems noted. 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 Review of Systems Const Reports daytime sleepiness and Denies night sweats ENT Denies change in voice, Denies lip swelling, Denies mouth pain, Reports nasal congestion, Reports nasal discharge and Denies tongue swelling Card Denies chest pain, Denies dyspnea and Reports dyspnea on exertion Resp Denies cough, Denies dyspnea and Reports dyspnea on exertion GI Denies abdominal pain Musc Reports arthralgias and Reports limited range of motion Neuro Denies Neuro-related abnormal movements Psych Denies no additional complaints Jarrett/Lymph Denies easy bleeding and Denies lymphadenopathy Aller/Immun Denies lip swelling and Denies tongue swelling Physical Exam Vital Signs: Last Vital Signs Pulse 74 11/11/23 09:14 BP 122/74 11/11/23 09:14 Pulse Ox 97 11/11/23 09:14 Oxygen Delivery Method Room Air 11/11/23 09:14 BMI result Body Mass Index 27.6 Const General: alert Eyes Pupils: Equal, round and reactive pupils present Neck Neck: Yes normal visual inspection, Yes full ROM and Yes no lymphadenopathy Chest Chest palpation & inspection: normal inspection of the chest Resp Auscultation: no wheezes and diminished lung sounds Cardio Rate: regular rate Rhythm: regular rhythm Heart sounds: S1 normal heart sound present and S2 normal heart sound present GI Palpation (GI): Soft to palpation and nontender Auscultation: normal bowel sounds Skin General skin exam: rashes and/or lesions noted Neuro Cranial nerves: Yes Equal, round and reactive pupils present Assessment & Plan Assessment & Plan (1) COPD (chronic obstructive pulmonary disease): Comment: Moderate severity Code(s): J44.9 - Chronic obstructive pulmonary disease, unspecified Category: Medical Qualifiers: COPD type: COPD with acute exacerbation Qualified Code(s): J44.1 - Chronic obstructive pulmonary disease with (acute) exacerbation (2) MARISOL on CPAP: Code(s): G47.33 - Obstructive sleep apnea (adult) (pediatric); Z99.89 - Dependence on other enabling machines and devices Category: Medical (3) Pulmonary nodules: Comment: Based on previous CT scans of the chest. stable Code(s): R91.8 - Other nonspecific abnormal finding of lung field Category: Medical (4) Complex sleep apnea syndrome: Code(s): G47.31 - Primary central sleep apnea Category: Medical Plan holding CPAP plan to repeat sleep study in the Fall Continue Anoro daily start Arnuity daily MEL as needed F/U 4-6 months Orders: Orders RT PSG in-lab sleep study 03/13/24 G47.31 - Primary central sleep apnea Medications: New fluticasone furoate 100 mcg/actuation (Arnuity Ellipta) 1 inh inhalation DAILY 30 days 30 ea 11RF Coding Level of Care Code Est Pt Level 4 (19368) Diagnoses Chronic obstructive pulmonary disease with acute exacerbation J44.1 COPD type: COPD with acute exacerbation MARISOL on CPAP G47.33; Z99.89 Pulmonary nodules R91.8 Complex sleep apnea syndrome G47.31 Time Spent (min) 17
== END 2023-11-11 09:40 | disposition home or self-care (01) ==
PROVIDERS: PCP Internal Medicine Medical Oncology; Visit Provider Hospitalist
DX: J44.1 Chronic obstructive pulmonary disease with (acute) exacerbation (principal); G47.33 Obstructive sleep apnea (adult) (pediatric); Z99.89 Dependence on other enabling machines and devices; R91.8 Other nonspecific abnormal finding of lung field; G47.31 Primary central sleep apnea
CPT/HCPCS: 99214

== ENCOUNTER → 2023-11-11 09:12 | Outpatient (BNVA) | payer MEDICARE, OTHER, SELFPAY | PROVIDERS: PCP Internal Medicine Medical Oncology; Visit Provider Hospitalist | DX: G47.31 Primary central sleep apnea (principal); G47.33 Obstructive sleep apnea (adult) (pediatric); J44.1 Chronic obstructive pulmonary disease with (acute) exacerbation; R91.8 Other nonspecific abnormal finding of lung field; Z99.89 Dependence on other enabling machines and devices | CPT/HCPCS: 99212 ==

== ENCOUNTER → 2023-11-14 07:43 | Outpatient (REF) | payer MEDICARE, OTHER, SELFPAY ==
--- NOTE | 2023-11-14 07:46 | CA_ITS ---
Transthoracic Echocardiogram Patient (Last, First, Middle): Efrain Pedro W Gender: Male Date of : 1940 Age: 83 Procedure Date: 11/14/2023 Procedure Type: Transthoracic Echocardiogram Location: OP Height: 193.04 cm Weight: 102.97 kg BSA: 2.34 m2 Heart Rate: 65 bpm BP: 112 / 64 mmHg [facility] Transplanter: MEHUL Referring MD: Jhonathan Gama MD Symptoms: I71.9 - Aortic aneurysm of unspecified site, without rupture Study Quality: Adequate ECG Rhythm: Sinus Conclusions: - The left ventricular systolic function is normal. The calculated ejection fraction is 56% by biplane method. - The basal inferior segment is hypokinetic. - No obvious valvular pathology seen on this study. - There is mild dilatation of the sinuses of Valsalva measuring 4.00 cm and moderate dilatation of the ascending aorta measuring 4.50 cm. Findings Left Ventricle Normal left ventricular cavity size. There is normal left ventricular wall thickness. The left ventricular systolic function is normal. The calculated ejection fraction is 56% by biplane method. Evidence suggests grade I (mild) diastolic dysfunction. LV peak GLS -13.6%. Wall Motion Rest Echo Findings The basal inferior segment is hypokinetic. Right Ventricle Mildly increased right ventricular cavity size. There is normal right ventricular systolic function. Atria Both atria are normal in size. Aortic Valve There is a normal trileaflet aortic valve. There is mild calcification of the aortic valve. There is no aortic valve stenosis. There is no aortic valve regurgitation. Mitral Valve The mitral valve appears normal. There is no mitral valve regurgitation. There is no mitral valve stenosis. Pulmonic Valve The pulmonic valve is likely normal. Tricuspid Valve Normal tricuspid valve structure. There is trace tricuspid valve regurgitation. There is no evidence of pulmonary hypertension. Great Vessels There is mild dilatation of the sinuses of Valsalva measuring 4.00 cm and moderate dilatation of the ascending aorta measuring 4.50 cm. Venous The inferior vena cava is normal in size and collapses greater than 50% with inspiration. Pericardium/Pleural There is no evidence of pericardial effusion. Prior Study Comparison No significant change compared to prior study dated: 10/01/2022. Recommendations, Care & Conclusions No obvious valvular pathology seen on this study. Measurements 2D Linear Measurements IVSd: 0.97 0.6-0.9/0.6-1.0 cm LVIDd: 4.48 3.9-5.3/4.2-5.9 cm LVIDd Index: 1.91 2.4-3.2/2.2-3.1 cm/m2 LVIDs: 3.41 2.0-3.6 cm LVPWd: 0.84 0.7-1.1 cm LA Diam: 3.00 2.7-3.8/3.0-4.0 cm LAIDs Index: 1.28 1.5-2.3 cm/m2 LV Mass: 165.05 67-162/88-224 g LV Mass Index: 70.54 43-95/49-115 g/m2 LVOT Diam: 2.50 3.0+(-)1.3 cm 2D Systolic Function EF 4C: 58.40 >55% EF 2C: 55.30 >55% EF BiP: 55.70 >55% Mitral Valve MV Pk E: 0.64 MV PK A: 0.90 MV Decel Time: 239.00 E/A: 0.70 E'Lateral: 5.11 E'Medial: 4.13 E/E' Med: 15.60 E/E' Lat: 12.60 PHT: 70.00 MVA PHT: 3.14 Decel [place]age: 2.68 Aortic Valve AoV Pk Blu: 1.02 AoV Pk Grad: 4.00 PETTY: 3.84 LVOT LVOT Pk Blu: 0.81 LVOT Mn Blu: 0.54 LVOT VTI: 0.17 LVOT Pk Grad: 3.00 LVOT Mn Grad: 1.00 LVOT Diam: 2.50 LVOT Area: 4.91 Diastolic Function MV Pk E: 0.64 MV Pk A: 0.90 E/A: 0.70 E'Medial: 4.13 E/E' Med: 15.60 E' Laterial: 5.11 E/E' Lat: 12.60 Right Ventricle TAPSE (mm): 26.20 Tricuspid Valve TR Pk Blu: 2.20 TR Pk Grad: 19.00 RA Press: 3.00 RVSP: 22.00 Great Vessels Aorta Sinus of Valsalva: 4.00 2.0-3.5 cm Ao Asc: 4.50 2.1-3.4 cm Pulmonary Valve PV Pk Blu: 0.80 Peak PV Grad: 3.00 Updated in Other Vendor System with Status of Final Marv Barrera MD electronically signed on 11/16/2023 11:26:01 AM with status of Final
== END ==
LOC: HO.CARD 07:43
PROVIDERS: PCP Internal Medicine Medical Oncology; Visit Provider Internal Medicine Cardiovascular Disease
DX: I71.9 Aortic aneurysm of unspecified site, without rupture (principal)
CPT/HCPCS: 93306; 93356

== ENCOUNTER → 2023-11-14 07:46 | Outpatient (BNV) | payer MEDICARE, OTHER, SELFPAY | PROVIDERS: PCP Internal Medicine Medical Oncology; Visit Provider Internal Medicine | DX: I71.21 Aneurysm of the ascending aorta, without rupture (principal); I35.8 Other nonrheumatic aortic valve disorders | CPT/HCPCS: 93306; 93356 ==

== ENCOUNTER 2023-12-05 08:26 | Outpatient (AMB) | payer MEDICARE, OTHER, SELFPAY ==
--- NOTE | 2023-12-05 08:57 | A.OFFVIS_ITS ---
Vital Signs 12/05/23 08:58 Height 6 ft 4 in Weight 218 lb 4.122 oz BMI 26.6 BP 120/76 Blood Pressure Location Lt brachial Position Sitting Pulse 70 Intake Visit Reasons: 6 mth s/p echo/ lipids Intake Note: 6 month follow-up after echo with ekg feeling good Documentation Clerk Required: No Allergies N.K.D.A. Allergy (Uncoded 11/11/23 09:19) Unknown Medication List - Last Reconciled 12/05/23 by Jhonathan Gama MD aspirin 325 mg PO BID 6 weeks atorvastatin 80 mg PO BEDTIME 90 days bupropion HCl XL 450 mg PO BEDTIME [calcium ] cholecalciferol (vitamin D3) (Vitamin D3) 25 mcg PO BEDTIME CPAP (CPAP Machine/Device) As directed docusate sodium (Colace) 100 mg PO BEDTIME finasteride 5 mg PO DAILY fluticasone furoate 100 mcg/actuation (Arnuity Ellipta) 1 inh inhalation DAILY 30 days gabapentin 200 mg PO TID metoprolol succinate ER 50 mg PO BEDTIME multivitamin 1 tab PO BEDTIME neomycin-polymyxin B-dexameth 3.5mg/mL-10,000 unit/mL-0.1 % 1 drp ophthalmic (eye) BID PRN pantoprazole 40 mg PO BEDTIME PRN umeclidinium-vilanterol 62.5-25 mcg/actuation (Anoro Ellipta) 1 inh inhalation DAILY vitamin B complex (B Complex-Vitamin B12 tablet) 1 tab PO BEDTIME [zinc ] HPI Comments Details: Efrain comes for follow-up. He has been doing well. He denies any symptoms of angina at current work threshold. Denies any palpitations. Denies any worsening shortness of breath, orthopnea, PND. Most recent echocardiogram shows stable ascending aortic aneurysm at 4.5 cm. Takes all his medications although he says he is taking full dose of aspirin every day. Denies any bleeding issues or neurologic events. No heart failure symptoms. Denies any prolonged palpitations or irregular heartbeat. [facility] Medical History CAD (coronary artery disease) Complex sleep apnea syndrome Wears hearing aid in both ears Personal history of nicotine dependence MARISOL on CPAP HTN (hypertension) Fracture of left distal radius Aortic aneurysm Pulmonary nodules COPD (chronic obstructive pulmonary disease) Osteoarthritis of right hip Cataracts, bilateral CAD (coronary artery disease) Hyperlipidemia Depression Surgical History Hx of vascular surgery History of heart artery stent (~1997) History of cataract surgery (~2009) History of colonoscopy Family History Mother No problems noted. Father No problems noted. 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 Review of Systems Const Denies chills, Denies fatigue, Denies fever(s), Denies frequent falls, Denies weakness, Denies weight gain and Denies weight loss ENT Denies dizziness Card Denies chest pain, Denies leg edema, Denies lightheadedness, Denies palpitations, Denies dyspnea, Denies dyspnea on exertion, Denies orthopnea and Denies other (loss of consciousness) Resp Denies cough, Denies dyspnea and Denies dyspnea on exertion GI Denies hematochezia and Denies change in stool character Musc Denies abnormal gait, Denies muscle weakness, Denies numbness, Denies radiating pain into limb and Denies tingling Neuro Denies abnormal gait, Denies dizziness, Denies frequent falls, Denies numbness, Denies tingling and Denies weakness Endo Denies fatigue and Denies palpitations Physical Exam Vital Signs: Last Vital Signs Pulse 70 12/05/23 08:58 BP 120/76 12/05/23 08:58 BMI result Body Mass Index 26.6 Const General: cooperative, comfortable, alert, awake and well groomed Nutritional Appearance: average body habitus Orientation/consciousness: patient oriented x3 Limitations: no limitations Neck Neck: Yes trachea midline, Yes supple and Yes no JVD Resp Effort & Inspection: normal respiratory effort Auscultation: clear to auscultation bilaterally Cardio Jugular venous distension: no JVD Palpation: normal PMI Rate: regular rate Rhythm: regular rhythm Heart sounds: S1 normal heart sound present and S2 normal heart sound present Skin General skin exam: no rashes or lesions noted and ecchymosis Neuro General: patient oriented x3 and no focal motor deficits Extrem General: Yes no clubbing, cyanosis or edema Psych Appearance: grossly normal Office Procedures EKG Details: EKG shows normal sinus rhythm with PACs otherwise normal EKG at 70 beats per minute [id number], Complete Assessment & Plan Assessment & Plan (1) CAD (coronary artery disease): Code(s): I25.10 - Atherosclerotic heart disease of [place] coronary artery without angina pectoris Category: Medical Plan: Stable coronary artery disease with prior RCA intervention with normal LV ejection fraction with no symptoms of angina at current point in current medications. He has diffuse vascular disease as well. Continue current antianginal therapy with metoprolol. Continue aggressive blood pressure control which currently is well optimized. Continue high-intensity statin therapy with last LDL well optimized. Continue follow with Dr. Dee. If interventions planned may need dual antiplatelet therapy. Advised him to reduce aspirin dose to at least 162 mg daily to reduce bleeding risk. (2) Aortic aneurysm: Comment: Based on previous CT scans. Code(s): I71.9 - Aortic aneurysm of unspecified site, without rupture Category: Medical Plan: Ascending aortic aneurysm which is moderate in size at 4.5 cm. No surgical interventions required. Continue aggressive vascular risk factor modification above. Continue metoprolol therapy. Continue aggressive blood pressure control with goal blood pressure less than 130/84. Will follow up in the clinic in 1 year's time after an echocardiogram. Thank you for allowing me to partake in his care Orders: Orders CA echo transthoracic complete 1 Year I71.9 - Aortic aneurysm of unspecified site, without rupture Coding Level of Care Code Est Pt Level 4 (83568) Diagnoses CAD (coronary artery disease) I25.10 Aortic aneurysm I71.9 CPT Codes EKG - CPT: 70152-[id number], Complete ([id number])
[2023-12-05 08:58] VITALS: BP 120/76; PULSE 70; BMI 26.6
== END 2023-12-05 09:23 | disposition home or self-care (01) ==
PROVIDERS: PCP Internal Medicine Medical Oncology; Visit Provider Internal Medicine Cardiovascular Disease
DX: I25.10 Atherosclerotic heart disease of native coronary artery without angina pectoris (principal); I71.9 Aortic aneurysm of unspecified site, without rupture
CPT/HCPCS: 93010; 99214

== ENCOUNTER → 2023-12-05 08:26 | Outpatient (BNVA) | payer MEDICARE, OTHER, SELFPAY | PROVIDERS: PCP Internal Medicine Medical Oncology; Visit Provider Internal Medicine Cardiovascular Disease | DX: I25.10 Atherosclerotic heart disease of native coronary artery without angina pectoris (principal); I71.9 Aortic aneurysm of unspecified site, without rupture | CPT/HCPCS: 93005; 99212 ==

== ENCOUNTER 2024-01-02 08:50 | Outpatient (AMB) | payer MEDICARE, OTHER, SELFPAY ==
[2024-01-02 08:53] VITALS: BMI 26.5
--- NOTE | 2024-01-02 08:53 | MHC.OFFVIS ---
Vital Signs 01/02/24 08:53 Height 6 ft 4 in Weight 218 lb BMI 26.5 Intake Visit Reasons: OV - Right HANNA 01/08/23 Intake Note: Efrain is an 83 year old female who presents today for a post operative appointment s/p Right HANNA 01/08/23. Patient reports that he is doing well he has minimal discomfort, that is mostly felt when laying on the right side. The right knee is doing well , last injection was done in March which continue to be helpful. He mentions that he has peripheral neuropathy and is inquiring if Physical therapy is warranted. Allergies N.K.D.A. Allergy (Uncoded 01/02/24 08:53) Unknown HPI HPI OV - Right HANNA 01/08/23: Details: Efrain is an 83 year old female who presents today for a post operative appointment s/p Right HANNA 01/08/23. Patient reports that he is doing well he has minimal discomfort, that is mostly felt when laying on the right side. The right knee is doing well , last injection was done in March which continue to be helpful. He mentions that he has peripheral neuropathy and is inquiring if Physical therapy is warranted. Overall area feels good. He is trying to work out and wondering if he should go to physical therapy for his right knee which does not really bother him it just causes some weakness when he is going up and downstairs. [facility] Medical History CAD (coronary artery disease) Complex sleep apnea syndrome Wears hearing aid in both ears Personal history of nicotine dependence MARISOL on CPAP HTN (hypertension) Fracture of left distal radius Aortic aneurysm Pulmonary nodules COPD (chronic obstructive pulmonary disease) Osteoarthritis of right hip Cataracts, bilateral CAD (coronary artery disease) Hyperlipidemia Depression Surgical History Hx of vascular surgery History of heart artery stent (~1997) History of cataract surgery (~2009) History of colonoscopy Family History Mother No problems noted. Father No problems noted. 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 Physical Exam Vital Signs: BMI result Body Mass Index 26.5 Const General: no acute distress, alert and awake Orientation/consciousness: patient oriented x3 HEENT Head: Yes normocephalic and Yes atraumatic Eyes EOM: EOMs intact bilaterally Resp Effort & Inspection: normal respiratory effort and able to speak in complete sentences Cardio Jugular venous distension: no JVD Skin General skin exam: turgor normal Rashes: no rashes Neuro General: patient oriented x3 Extrem Other: No pain with hip ROM no gait antalgia Psych Appearance: grossly normal Affect: normal affect Attitude: cooperative Assessment & Plan Assessment & Plan (1) S/P total right hip arthroplasty: Code(s): Z96.641 - Presence of right artificial hip joint Category: Surgical Plan: Doing well status post right hip replacement. No complaints. (2) Primary localized osteoarthritis of right knee: Code(s): M17.11 - Unilateral primary osteoarthritis, right knee Category: Medical Plan: Right knee is bothering him occasionally with stairs but otherwise no pain just weakness. We basically talked about working out and how to do that in a knee friendly way i.e. with stationary biking and moderate weightlifting. He will return to see me in 6 months. Coding Level of Care Code Est Pt Level 3 (70965) Diagnoses S/P total right hip arthroplasty Z96.641 Primary localized osteoarthritis of right knee M17.11
== END 2024-01-02 11:16 | disposition home or self-care (01) ==
PROVIDERS: PCP Internal Medicine Medical Oncology; Visit Provider Orthopaedic Surgery
DX: M17.11 Unilateral primary osteoarthritis, right knee (principal); Z47.1 Aftercare following joint replacement surgery; Z96.641 Presence of right artificial hip joint
CPT/HCPCS: 99213

== ENCOUNTER → 2024-01-02 08:50 | Outpatient (BNVA) | payer MEDICARE, OTHER, SELFPAY | PROVIDERS: PCP Internal Medicine Medical Oncology; Visit Provider Orthopaedic Surgery | DX: M17.11 Unilateral primary osteoarthritis, right knee (principal); G62.9 Polyneuropathy, unspecified; Z96.641 Presence of right artificial hip joint | CPT/HCPCS: 99212 ==

== ENCOUNTER 2024-03-04 12:47 | Outpatient (AMB) | payer MEDICARE, OTHER, SELFPAY ==
--- NOTE | 2024-03-04 13:01 | MHC.OFFVIS ---
Intake Visit Reasons: BPH/erectile dysfunction Intake Note: New Patient presents for initial visit for BPH and Erectile Dysfunction Urology Medications: Finasteride Blood Thinner: Aspirin PVR: 106ml's [employer] Wafer Breaker Required: No Accompanied by: Self / Same As Patient Allergies N.K.D.A. Allergy (Uncoded 03/04/24 21:10) Unknown Medication List - Last Reconciled 03/04/24 by KELECHI Woodruff- aspirin 325 mg PO BID 6 weeks atorvastatin 80 mg PO BEDTIME 90 days bupropion HCl XL 450 mg PO BEDTIME [calcium ] celecoxib 200 mg PO DAILY cholecalciferol (vitamin D3) (Vitamin D3) 25 mcg PO BEDTIME CPAP (CPAP Machine/Device) As directed docusate sodium (Colace) 100 mg PO BEDTIME finasteride 5 mg PO DAILY fluticasone furoate 100 mcg/actuation (Arnuity Ellipta) 1 inh inhalation DAILY 30 days gabapentin 200 mg PO TID metoprolol succinate ER 50 mg PO BEDTIME multivitamin 1 tab PO BEDTIME neomycin-polymyxin B-dexameth 3.5mg/mL-10,000 unit/mL-0.1 % 1 drp ophthalmic (eye) BID PRN pantoprazole 40 mg PO BEDTIME PRN umeclidinium-vilanterol 62.5-25 mcg/actuation (Anoro Ellipta) 1 inh inhalation DAILY vitamin B complex (B Complex-Vitamin B12 tablet) 1 tab PO BEDTIME [zinc ] HPI Comments Details: Efrain Mancuso is a very pleasant 84-year-old male patient of Dr. Greenwood. Has a past medical history of CAD, complex sleep apnea syndrome, bilateral hearing impairment, hypertension, aortic aneurysm, pulmonary nodules, COPD, osteoarthritis of right hip status post right hip replacement December of 2022, coronary artery disease, hyperlipidemia, and hypertension. Presents to the office today as a new patient to establish urological care. In discussion with the patient today he reports following up with [facility] for many years however would like to transfer care here to [facility] as many of his other providers are affiliated at this facility. He currently denies any bothersome urinary issues or concerns. He reports having annual QUE is with PCP and has been on finasteride for many years for an enlarged prostate. In review of patient's chart it appears PSAs are as follows: PSA: 04/04 1.2, 1/23 1.6, 01/04 1.5. When asked he does report episodes of nocturia up to 4 times per night however does not find this bothersome. He discusses following up with Dr. Haley here as he has a longstanding history of sleep apnea and is undergoing further workup at this time. We discussed correlation of nocturia and sleep apnea. He otherwise denies urinary urgency, urinary frequency, incontinence, hematuria, dysuria, foul smelling urine, changes to urinary stream, flank pain, fever, and or chills. He is happy with his current voiding parameters. In office urinalysis results reviewed with the patient today. PVR 106ml's. He does report over a 10 year history of erectile dysfunction however does not want to undergo further treatment options at this time as he does not feel this is necessary. 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 He otherwise offers no other issues or concerns at this time. [facility] Medical History CAD (coronary artery disease) Complex sleep apnea syndrome Wears hearing aid in both ears Personal history of nicotine dependence MARISOL on CPAP HTN (hypertension) Fracture of left distal radius Aortic aneurysm Pulmonary nodules COPD (chronic obstructive pulmonary disease) Osteoarthritis of right hip Cataracts, bilateral CAD (coronary artery disease) Hyperlipidemia Depression Surgical History Hx of vascular surgery History of heart artery stent (~1997) History of cataract surgery (~2009) History of colonoscopy Family History Mother No problems noted. Father No problems noted. 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 [facility] HealthGwcvunsr-hpouvvk-axcad handed Review of Systems Eyes Reports no additional complaints ENT Reports no additional complaints Card Reports as per HPI Resp Reports as per HPI GI Reports no additional complaints Reports as per HPI Musc Reports as per HPI Neuro Reports no additional complaints Psych Reports no additional complaints Endo Reports no additional complaints Jarrett/Lymph Reports no additional complaints Aller/Immun Reports no additional complaints Physical Exam Const General: cooperative, healthy appearing, comfortable, no acute distress, well developed, alert and awake Orientation/consciousness: patient oriented x3 Limitations: no limitations HEENT Head: Yes normal to inspection, Yes normocephalic and Yes atraumatic Ears: hearing grossly normal bilaterally Eyes General: appearance normal, both eyes and all related structures Neck Neck: Yes normal visual inspection and Yes trachea midline Chest Chest palpation & inspection: normal inspection of the chest Resp Effort & Inspection: normal respiratory effort and able to speak in complete sentences Cardio Rate: regular rate GI Inspection: Yes normal to inspection General: Yes no CVA tenderness Back/Spine/Pelvis Back: no CVA tenderness Skin General skin exam: no rashes or lesions noted Neuro General: patient oriented x3 Extrem General: Yes normal to inspection Psych Appearance: grossly normal and well kempt Mental Status: mental status grossly normal Speech and movement: Normal speech and movement present and Clear speech present Affect: normal affect Attitude: cooperative Thought process: Normal thought process present Thought content: Normal thought content present Insight: Fair insight present (Psych) Judgement: Fair judgement present (Psych) Office Procedures Post Void Residual Post Residual Void Post Void Residual (PVR): 106 [id number] Void Residual by ultrasound Results AMB Urinalysis, Automated UA Leukoctes 0 Odalys/uL Last Edit by Squawka on 03/04/24 13:20 UA Nitrite Last Edit by Squawka on 03/04/24 13:20 UA Urobilinogen 0.2 mg/dL Last Edit by Squawka on 03/04/24 13:20 UA Protein 15 mg/dL Last Edit by Squawka on 03/04/24 13:20 UA pH 6.0 Last Edit by Squawka on 03/04/24 13:20 UA Blood 0 Marcelo/uL Last Edit by Squawka on 03/04/24 13:20 UA Specific [place] 1.015 Last Edit by Squawka on 03/04/24 13:20 UA Ketone Last Edit by Squawka on 03/04/24 13:20 UA Bilirubin 0 mg/dL Last Edit by Char Banuelos on 03/04/24 13:20 UA Glucose 0 mg/dL Last Edit by Char Banuelos on 03/04/24 13:20 Results Reviewed Results Reviewed: Laboratory Last Values Urine pH (Auto) 6.0 03/04/24 13:09 Specific [place] (Auto) 1.015 03/04/24 13:09 Urine Protein (Auto) 15 mg/dL 03/04/24 13:09 Glucose (UA)(Auto) 0 mg/dL 03/04/24 13:09 Urine Blood (Auto) 0 Marcelo/uL 03/04/24 13:09 Urine Bilirubin (Auto) 0 mg/dL 03/04/24 13:09 Urine Urobilinogen (Auto) 0.2 mg/dL 03/04/24 13:09 Leukocyte Esterase (Auto) 0 Odalys/uL 03/04/24 13:09 Assessment & Plan Assessment & Plan (1) Enlarged prostate: Code(s): N40.0 - Benign prostatic hyperplasia without lower urinary tract symptoms Category: Medical (2) Nocturia: Code(s): R35.1 - Nocturia Category: Medical Plan In office urinalysis results reviewed with the patient today; as noted above. PVR 106 mL. Discussed at length potential causes of nocturia. Discussed correlation of sleep apnea and nocturia. Patient currently denies any bothersome urinary issues or concerns. Continue finasteride as discussed and prescribed. Will obtain PSA in 1 year Follow-up in 1 year with PSA to be completed prior and PVR; or sooner with any issues, concerns, and or questions. Orders: Orders AMB Urinalysis Automated Today Z13.9 - Encounter for screening, unspecified Prostate Specific Antigen 1 Year N40.0 - Benign prostatic hyperplasia without lower urinary tract symptoms AMB Post Void Residual by ultrasound Today Z13.9 - Encounter for screening, unspecified Patient Instructions: The patient had an opportunity to ask questions regarding the treatment plan. All questions were answered. Physical exam, labs, and imaging were discussed and reviewed in detail. As well as risks, benefits, and discussion of treatment choices. No major barriers to understanding were identified. The patient expressed understanding and agreement with the above treatment plan. The patient was made aware they should contact our office by phone for worsening of their current condition, the appearance of new symptoms, or with any questions or concerns. Compliance is encouraged with any medications and follow up testing that is ordered. It is a privilege to be allowed the opportunity to participate in? your urological care.? Again, if you have any questions or concerns If you have any questions or concerns please do not hesitate to contact me. The office is [phone]. This note is constructed using voice recognition software. While every effort has been made to ensure accuracy secondary connector armature errors may have been included. Yours sincerely, CARIE Woodruff Coding Level of Care Code New Pt Level 3 (44087) Diagnoses Enlarged prostate N40.0 Nocturia R35.1 CPT Codes Post Residual Void - PVR CPT Code: 98634-Wace Void Residual by ultrasound ([id number])
== END 2024-03-04 13:43 | disposition home or self-care (01) ==
PROVIDERS: PCP Internal Medicine Medical Oncology; Visit Provider Nurse Practitioner Family
DX: N40.0 Benign prostatic hyperplasia without lower urinary tract symptoms (principal); R35.1 Nocturia; Z13.9 Encounter for screening, unspecified
CPT/HCPCS: 99203

== ENCOUNTER → 2024-03-04 12:47 | Outpatient (BNVA) | payer MEDICARE, OTHER, SELFPAY | PROVIDERS: PCP Internal Medicine Medical Oncology; Visit Provider Nurse Practitioner Family | DX: N40.0 Benign prostatic hyperplasia without lower urinary tract symptoms (principal); N52.9 Male erectile dysfunction, unspecified; R35.1 Nocturia | CPT/HCPCS: 51798; 81003; 99202 ==

== ENCOUNTER → 2024-03-18 03:30 | Outpatient (BNV) | payer MEDICARE, OTHER, SELFPAY | PROVIDERS: PCP Internal Medicine Medical Oncology; Visit Provider Internal Medicine | DX: G47.31 Primary central sleep apnea (principal) | CPT/HCPCS: 95810 ==

== ENCOUNTER → 2024-03-18 20:30 | Outpatient (REF) | payer MEDICARE, OTHER, SELFPAY | LOC: HO.SL 20:30 | PROVIDERS: PCP Internal Medicine Medical Oncology; Visit Provider Hospitalist | DX: G47.33 Obstructive sleep apnea (adult) (pediatric) (principal); G47.61 Periodic limb movement disorder | CPT/HCPCS: 95810 ==

== ENCOUNTER 2024-05-04 08:40 | Outpatient (AMB) | payer MEDICARE, OTHER, SELFPAY ==
--- NOTE | 2024-05-04 08:48 | A.OFFVIS_ITS ---
Vital Signs 05/04/24 08:50 Height 6 ft 4 in Weight 215 lb BMI 26.2 BP 128/60 Blood Pressure Location Lt brachial Position Sitting Pulse 70 Pulse Source Pulse Oximeter Pulse Oximetry (%) 96 Oxygen Delivery Method Room Air Intake Visit Reasons: COPD Pulp Grinder Required: No Allergies N.K.D.A. Allergy (Uncoded 05/04/24 08:48) Unknown HPI Comments Details: The patient is a 84-year-old gentleman with a known history of COPD and MARISOL. Apparently, he was a smoker many years ago and was able to quit completely about 8 years ago. Subsequently after that he started developing increasing shortness of breath. He did have a cardiac evaluation in the past and did have a stent placed many years ago. More recently because is worsening shortness of breath moderate severity he was referred to Cardiology. He did undergo cardiac catheterization and ultimately per report demonstrated that his stent was 80% close. It was attempted to be open but was not able to be manipulated. Overall he is in good cardioprotective medications. He does have pulmonary function studies from 2017 demonstrating severe COPD with significant air trapping hyperinflation. The patient also had a moderate diffusion impairment back 10. Patient also had a CT scan of the chest demonstrating interstitial lung changes consistent with interstitial lung disease primarily at the bases. He also had distribution of emphysema in the mid and also lower lung zones bring up the question of alpha-1 antitrypsin deficiency. In the meantime the patient also has been using CPAP. The CPAP therapy has been affecting beneficial. He does uses CPAP for more than 4 hours a night. He will bring CPAP in during the next visit so we can download and also adjusted accordingly. He does uses [employer]. 03/20/2023 the patient is here for a pulmonary follow-up visit. Overall the patient has been doing well. Continues using the Anoro. This has been affected. He does not use it every day but he does notice improvement when he uses the. I did recommend he use it daily. In the meantime he also continues uses CPAP at nighttime. CPAP therapy continues to be affecting beneficial. He does use it for more than 4 hours a night. We did download the APAP. It appears that the degree of central apneas have yolanda rocket. It appears that he had the last week 19 episodes an hour of central sleep apnea and seems like the obstructive sleep apnea is controlled. He is set up APAP with a maximum pressure of 11. Will go ahead and switch him just to CPAP at 10 cm of water. He is going to have a nursing visit to read download the machine in the coming weeks. He continues to have significant central apneas he will require titration study because he may benefit from an ASV. He did have an echocardiogram this year demonstrating normal left ventricular function which is reassuring. Therefore, the patient will continue to use CPAP at the current settings and we will assess for the need for titration study in the coming weeks. 06/19/2023 the patient is here for a pulmonary follow-up visit. The patient has been doing well from a respiratory status. Is bringing responded well to the Anoro. He does not use it all the time but he typically uses it between 20 3 times a week. He has not had to use his rescue inhaler. He also has been using his CPAP. He does use it for more than 4 hours a night. The therapy is very beneficial although does not appear to be very effective for him as his AHI continues to be elevated above 10. He did bring the machine today and I did downloaded. His set up at CPAP of 10 based on trying to control is central sleep apnea. By switched over again to an APAP 9-12 to see high response to that but at the end of the day he needs a sleep titration study at this time to address the question of his complex sleep apnea in needing for an ASV setting. 11/11/2023 the patient is here for a pulmonary follow-up visit. Overall he is doing okay. Complains of dyspnea on exertion. Also bringing up phlegm which is whitish in color. [id number] severity. He has been on Anoro. He does find partially helpful. He is concerned about he can hold steroids. The patient did have a CT scan of the chest IV contrast done at [facility] recently 2023 to assess his aneurysms. I personally reviewed. It appears he has a stable pulmonary nodule has not changed. Moderate degree of emphysema noted. 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 This is related to his COPD and hyperinflation of the lungs. He also has evidence of chronic bronchitis. He may benefit from inhaled steroids but I will keep him separate so he can take it during his worsening episodes and then he can back off on the steroids when he is doing okay. He also has some still some daytime drowsiness. His [place] score is elevated 05/07. The patient did have a diagnosis of sleep apnea for many years and then we did a sleep study showing no evidence of any sleep apnea. He has been without his machine but we still reluctant specially after years and years CPAP therapy. Therefore, I will be reasonable to repeat his sleep study. At this time he is under going to go some vascular interventions will hold off at this time so he can have his vascular procedures completed. When he is done with that then we can look into doing a sleep study sometime in the fall of 2023. Will follow-up after the sleep study. 05/04/2024 the patient is here for a pulmonary follow-up visit. The patient overall has been doing well. He had a sleep study done the in-lab. No significant sleep apnea appreciated. No significant hypoxia appreciated although he does have significant periodic limb movements. He has been taking gabapentin 200 mg at nighttime. I did encourage him to increase that. He will go ahead and double it up to 400 mg. Can try that for some time and then if he is still having issues we can always try to take titrated up to 600 mg. He has been using the Anoro inhaler for the most part. Typically does not use the inhaled steroid which is reassuring. We did review his last CT scan of the chest back in 2021 demonstrating some pleural-based disease and significant emphysema and abnormal aortic arch. Will plan to repeat the CT scan at this time. He does have dyspnea on exertion. We did go for brief walking oximetry in his pulse ox was stable at 94-95% which is reassuring. He does exercise regularly. [facility] Medical History (Updated 05/04/24 @ 20:16 by Valdo Haley MD) PLMD (periodic limb movement disorder) CAD (coronary artery disease) Complex sleep apnea syndrome Wears hearing aid in both ears Personal history of nicotine dependence MARISOL on CPAP HTN (hypertension) Fracture of left distal radius Aortic aneurysm Pulmonary nodules COPD (chronic obstructive pulmonary disease) Osteoarthritis of right hip Cataracts, bilateral CAD (coronary artery disease) Hyperlipidemia Depression Surgical History Hx of vascular surgery History of heart artery stent (~1997) History of cataract surgery (~2009) History of colonoscopy Family History Mother No problems noted. Father No problems noted. Social History Household Members: Spouse Housing: House Are you a primary intensive care ambulance paramedic to a significant other at home: No Do you presently have visiting nurse or other home services: No Alcohol intake: never Comment: aware of trip hazard, 2 large dogs at home Patient Tobacco Use Status: Former Tobacco user Tobacco use type: Cigarette Years Smoked: 30 service: Yes Current occupation: [employer] [facility] [facility] [employer] Center[employer]ireimci-xdrcfxn-greza handed Review of Systems Const Reports daytime sleepiness and Denies night sweats ENT Denies change in voice, Denies lip swelling, Denies mouth pain, Reports nasal congestion, Reports nasal discharge and Denies tongue swelling Card Denies chest pain, Denies dyspnea and Reports dyspnea on exertion Resp Denies cough, Denies dyspnea and Reports dyspnea on exertion GI Denies abdominal pain Musc Reports arthralgias and Reports limited range of motion Neuro Denies Neuro-related abnormal movements Psych Denies no additional complaints Jarrett/Lymph Denies easy bleeding and Denies lymphadenopathy Aller/Immun Denies lip swelling and Denies tongue swelling Physical Exam Vital Signs: Last Vital Signs Pulse 70 05/04/24 08:50 BP 128/60 05/04/24 08:50 Pulse Ox 96 05/04/24 08:50 Oxygen Delivery Method Room Air 05/04/24 08:50 BMI result Body Mass Index 26.2 Const General: alert Eyes Pupils: Equal, round and reactive pupils present Neck Neck: Yes normal visual inspection, Yes full ROM and Yes no lymphadenopathy Chest Chest palpation & inspection: normal inspection of the chest Resp Auscultation: no wheezes and diminished lung sounds Cardio Rate: regular rate Rhythm: regular rhythm Heart sounds: S1 normal heart sound present and S2 normal heart sound present GI Palpation (GI): Soft to palpation and nontender Auscultation: normal bowel sounds Skin General skin exam: rashes and/or lesions noted Neuro Cranial nerves: Yes Equal, round and reactive pupils present Assessment & Plan Assessment & Plan (1) COPD (chronic obstructive pulmonary disease): Comment: Moderate severity Code(s): J44.9 - Chronic obstructive pulmonary disease, unspecified Category: Medical Qualifiers: COPD type: COPD with acute exacerbation Qualified Code(s): J44.1 - Chronic obstructive pulmonary disease with (acute) exacerbation (2) MARISOL on CPAP: Code(s): G47.33 - Obstructive sleep apnea (adult) (pediatric); Z99.89 - Dependence on other enabling machines and devices Category: Medical (3) Pulmonary nodules: Comment: Based on previous CT scans of the chest. stable Code(s): R91.8 - Other nonspecific abnormal finding of lung field Category: Medical (4) Complex sleep apnea syndrome: Code(s): G47.31 - Primary central sleep apnea Category: Medical (5) PLMD (periodic limb movement disorder): Code(s): G47.61 - Periodic limb movement disorder Category: Medical Plan holding CPAP, positional sleep therapy CT chest Continue Anoro daily continue Arnuity daily MEL as needed incresae Gabapentin 400mg QHS F/U 4-6 months Orders: Orders CT chest wo IV con Today R91.8 - Other nonspecific abnormal finding of lung field Medications: New gabapentin 400 mg PO BEDTIME 90 days 90 caps 3RF Coding Level of Care Code Est Pt Level 4 (97760) Diagnoses Chronic obstructive pulmonary disease with acute exacerbation J44.1 COPD type: COPD with acute exacerbation MARISOL on CPAP G47.33; Z99.89 Pulmonary nodules R91.8 Complex sleep apnea syndrome G47.31 PLMD (periodic limb movement disorder) G47.61 Time Spent (min) 17
[2024-05-04 08:50] VITALS: BP 128/60; PULSE 70; O2SAT 96; BMI 26.2
== END 2024-05-04 09:31 | disposition home or self-care (01) ==
PROVIDERS: PCP Internal Medicine Medical Oncology; Visit Provider Hospitalist
DX: J44.1 Chronic obstructive pulmonary disease with (acute) exacerbation (principal); G47.33 Obstructive sleep apnea (adult) (pediatric); Z99.89 Dependence on other enabling machines and devices; R91.8 Other nonspecific abnormal finding of lung field; G47.31 Primary central sleep apnea; G47.61 Periodic limb movement disorder
CPT/HCPCS: 99214

== ENCOUNTER → 2024-05-04 08:40 | Outpatient (BNVA) | payer MEDICARE, OTHER, SELFPAY | PROVIDERS: PCP Internal Medicine Medical Oncology; Visit Provider Hospitalist | DX: J44.1 Chronic obstructive pulmonary disease with (acute) exacerbation (principal); G47.31 Primary central sleep apnea; R91.8 Other nonspecific abnormal finding of lung field; G47.61 Periodic limb movement disorder; Z99.89 Dependence on other enabling machines and devices | CPT/HCPCS: 99212 ==

== ENCOUNTER 2024-06-04 07:04 | Outpatient (REF) | payer MEDICARE, SELFPAY | END 2024-06-04 07:05 | disposition home or self-care (01) | LOC: HO.CT 07:04 | PROVIDERS: PCP Internal Medicine Medical Oncology; Visit Provider Hospitalist | DX: R91.8 Other nonspecific abnormal finding of lung field (principal) | CPT/HCPCS: 71250 ==

== ENCOUNTER → 2024-06-04 07:06 | Outpatient (BNV) | payer MEDICARE, SELFPAY | PROVIDERS: PCP Internal Medicine Medical Oncology; Visit Provider Radiology Diagnostic Radiology | DX: R91.8 Other nonspecific abnormal finding of lung field (principal) | CPT/HCPCS: 71250 ==

== ENCOUNTER 2024-09-14 13:30 | Outpatient (REF) | payer MEDICARE, OTHER, SELFPAY ==
[2024-09-14 13:43] LABS: MANUAL DIFF FLAG NO
[2024-09-14 14:29] LABS: Basophils Percent Auto 0.5 % (0-2); Eosinophils Absolute Auto 0.3 X10*3/uL (0.0-0.4); Eosinophils Percent Auto 3.9 % (0-4); Hematocrit 42.3 % (42.0-52.0); Imm Gran Abs Auto 0.03 X10*3/uL (0.00-0.03); Imm Gran Pct Auto 0.4 % (0.0-0.4); Lymphocytes Percent Auto 26.4 % (20-40); Mean Corpuscular HGB Conc 33.1 g/dl (31.0-36.0); Mean Corpuscular Hemoglobin 33.6 pg (27.0-33.0); Mean Corpuscular Volume 101.4 fL (80.0-98.0); Mean Platelet Volume 9.5 fL (9.4-12.4); Monocytes Absolute Auto 0.8 X10*3/uL (0.1-1.2); Monocytes Percent Auto 10.6 % (2-11); Neutrophils Absolute Auto 4.3 x10*3/uL (2.0-8.3); Neutrophils Percent Auto 58.2 % (45-73); Platelet Count 252 X10*3/uL (160-400); Red Blood Count 4.17 X10*6/uL (4.60-5.80); Red Cell Distribution Width 13.3 % (11.0-16.0); White Blood Count 7.4 X10*3/uL (4.8-10.8)
[2024-09-14 15:08] LABS: Alanine Aminotransferase 32 U/L (0-40); Albumin Level 4.1 g/dL (3.5-5.0); Alkaline Phosphatase 71 U/L (39-117); Anion Gap 12 (12-20); Aspartate Amino Transferase 31 U/L (5-37); Bilirubin Total 1.1 mg/dL (0.0-1.0); Blood Urea Nitrogen 30 mg/dL (9-16); Calcium 9.5 mg/dL (8.4-10.2); Carbon Dioxide 29 mmol/L (22-29); Chloride 110 mmol/L (96-108); Cholesterol 115 mg/dL (<200); Estimated Glomerular Filt Rate 43; Glucose Fasting 66 mg/dL (60-99); HDL Cholesterol 35 mg/dL (>40); LDL Cholesterol Calculated 34 mg/dL (<100); Sodium 146 mmol/L (135-145); Total Protein 7.3 g/dL (6.5-8.0); Triglycerides 233 mg/dL (<150)
[2024-09-14 15:19] LABS: Prostate Specific Antigen 1.47 ng/mL (<0.05-4.0)
--- OUTSIDE RECORDS SUMMARY | 2024-09-14 15:57 | XMS_ITS | Clinical Summary ---
Author Organization [employer] [facility] Address [address] [place] [address] 7 [place] [address] Care Team Providers Care Supervisor Display Fabrication Name Role Phone Unavailable Primary Care Provider Unavailabl e Medications No known medications Social History Tobacco Use Types Packs/Day Years Used Date Smoking Tobacco: Unknown Tobacco Cessation:Counseling Given: Not Answered Sex and Gender Information Value Date Recorded Sex Assigned at Male 05/14/2022 10:29 AM EDT Legal Sex Male 10:29 AM EDT Gender Identity Male 05/14/2022 10:29 AM EDT Sexual Orientation Straight 05/14/2022 10 :29 AM EDT Plan of Treatment Health Maintenance Due Date Last Done Comments Dental Oral Exam 1940 Dental Prophylaxis 1940 Dental X-Ray: Bitewings 1940 Dental X-Ray: Full Mouth 1940 Depression Screening 1940 Lipid Panel 1940 SDOH Screening 1941 Alcohol/Substance Use Screening 1953 DTaP/Tdap/Td Vaccines (1 - Tdap) 02/04/1960 RSV Patients and Patients Aged 60 years or older (1 - 1-dose 75+ series) 02/04/2016 Tobacco Screening 07/23/2023 07/23/2022 COVID-19 Vaccine ( season) 2024 04/23/2022, 10/23/2021, 04/11/2021, Additional history exists Influenza Vaccine (#1) 2024 , 03/18/2021, 04/14/2019, Additional history exists Zoster Vaccines Completed 02/21/2018, 11/10/2017 Pneumococcal Vaccine: 50+ Years Completed 11/13/2021, 10/28/2020, 04/18/2016, Additional history exists HIB Vaccines Aged Out No longer eligi ble based on patient's age to complete this topic HPV Vaccines Aged Out No longer eligi ble based on patient's age to complete this topic Hepatitis A Vaccines Aged Out No long er eligible based on patient's age to complete this topic Hepatitis B Vaccines Aged Out No long er eligible based on patient's age to complete this topic IPV Vaccines Aged Out No longer eligi ble based on patient's age to complete this topic Meningococcal Vaccine Aged Out No yosvany jose antonio eligible based on patient's age to complete this topic RSV under 20 months Aged Out No longe r eligible based on patient's age to complete this topic Rotavirus Vaccines Aged Out No longer eligible based on patient's age to complete this topic Insurance DENTAL - AETNA DENTAL [facility] [place] [address] DENTAL - AETNA DENTAL [facility] [facility] [place]
--- OUTSIDE RECORDS SUMMARY | 2024-09-14 15:57 | XMS_ITS ---
Author Organization Tony Greenwood III, MD Address [address] [place] [address] [address] [place] [address] Care Team Providers Care Pl[employer] Inspector Name Role Phone Tony Greenwood Primary Care Provider Allergies Allergen (clinical drug ingredient) Drug/Non Drug Allergy documented on EMR Reaction Allergy Type Onset Date Status No Known Drug Allergy Unknown Drug Allergy Active REASON FOR VISIT Annual Exam Medications Medication SIG (Take, Route, Frequency, Duration) Notes Start Date End Date Status CoQ-10 Active CeleBREX 100 MG 1 capsule with food Orally Once a day Active Fluticasone Propionate 0.005 % 1 application to affected area Externally Twice a day 02/11/2018 Active Gabapentin 100 MG 2 capsule Orally Twi ce a day Active Doxycycline Hyclate 100 MG 1 capsule Ora lly Once a day Active Zinc Skyler-Benzyl Blv-Xyeod-Zrw Active Antioxidant Active Vitamin D Active Vitamin C Active Pantoprazole Sodium 40 MG TAKE 1 TABLET BY MOUTH EVERY DAY FOR 90 DAYS Active Ketoconazole 2 % 1 application Chassis Mechanic ally Once a day 03/15/2023 Active buPROPion HCl ER (XL) 150 MG TAKE 1 TABLET BY MOUTH EVERY DAY IN THE MORNING FOR 90 DAYS Active Ciclopirox Olamine 0.77 % External Active Anoro Ellipta 62.5-25 MCG/ACT Inhalation Active buPROPion HCl ER (XL) 300 MG TAKE 1 TABLET BY MOUTH EVERY DAY IN THE MORNING FOR 90 DAYS Active Finasteride 5 MG 1 tablet Orally Once a day Active Metoprolol Succinate ER 50 MG TAKE 1 TABLET BY MOUTH DAILY Oral Active Social History Tobacco Use: Social History Observation Description Date Details (start date - stop date) Former Smoker NA - NA Tobacco Use/Smoking Question Answer Notes Patient is a former smoker How long has it been since you last smoked? > 10 years Additional Findings: Tobacco Non-User Ex-cigaret te smoker Encounters Encounter Location Date Provider Diagnosis Tony Greenwood III, MD [address] [place] [address] [address] [place] [id number] 03/20/2024 Tony Greenwood Hyperlipidemia E78.5 Assessments Encounter Date Diagnosis (ICD Code) Assessment Notes Treat ment Notes Treatment Clinical Notes 03/20/2024 Hyperlipidemia (ICD-10 - E78.5) His lipids have been well controlled. A fasting lipid profile was ordered prior to his next visit. No change in his medications was made. Plan Of Treatment Medication Medication Name Sig Start Date Stop Date Notes CoQ-10 CeleBREX 100 MG 1 capsule with food Orally Once a day Fluticasone Propionate 0.005 % 1 applica tion to affected area Externally Twice a day 02/11/2018 Gabapentin 100 MG 2 capsule Orally Twice a day Doxycycline Hyclate 100 MG 1 capsule Orally Once a day Zinc Skyler-Benzyl Abg-Gpmii-Iah Antioxidant Vitamin D Vitamin C Pantoprazole Sodium 40 MG TAKE 1 TABLET BY MOUTH EVERY DAY FOR 90 DAYS Ketoconazole 2 % 1 application Chassis Mechanic ally Once a day 03/15/2023 buPROPion HCl ER (XL) 150 MG TAKE 1 TABL ET BY MOUTH EVERY DAY IN THE MORNING FOR 90 DAYS Ciclopirox Olamine 0.77 % External Anoro Ellipta 62.5-25 MCG/ACT Inhalation buPROPion HCl ER (XL) 300 MG TAKE 1 TABL ET BY MOUTH EVERY DAY IN THE MORNING FOR 90 DAYS Finasteride 5 MG 1 tablet Orally Once a day Metoprolol Succinate ER 50 MG TAKE 1 TAB LET BY MOUTH DAILY Oral Next Appt Details Provider Name:Tony Greenwood, 09/28/2024 03:00:00 PM, [address] [place] [address] [address], [place], [phone], Progress Notes * Efrain PEDRO IIDOB: (84 yo M)Acc No.[id number]:03/20/2024 Progress Notes Patient:?Efrain PEDRO II Provider:?Tony Greenwood MD :1940???Age:84 Y???Sex:Male Nuno e:03/20/2024 Address:[address] [place], [place] [id number] Subjective: * Chief Complaints: * ???1. Annual Exam. * HPI: ???COVID-19 Screening:?Questions?Have you had any new onset fever, chills, cough, congestion, sore throat, shortness of breath, muscle aches??No ?Have you been exposed to the virus within the last 10 days??No ?Have you travelled internationally in the last 10 days??No ?Have you been exposed to COVID-19 in the past??No * ROS:?General/Constitutional:?pain?only normal aches and pains.?Chills?denies.?Fatigue?admits.?Fever?denies.?ENT:?Decreased hearing?denies.?Respiratory:?Cough?denies.?Cardiovascular:?Chest pain with exertion?denies.?Dyspnea on exertion?denies.?Shortness of breath?denies.?Gastrointestinal:?Constipation?denies.?Decreased appetite?denies.?Diarrhea?denies.?Heartburn?denies.?Nausea?denies.?Rectal bleeding?denies.?Vomiting?denies.?Hematology:?bruising?denies.?petechiae?denies.?Swollen glands?none have been noted.?Genitourinary:?Frequent urination?denies.?Musculoskeletal:?Muscle aches?denies.?Painful joints?denies.?Sciatica?denies.?Weakness?denies.?Skin:?Itching?denies.?Rash?denies.?Skin lesion(s)?denies.?Neurologic:?Difficulty speaking?denies.?Dizziness?denies.?Headache?denies.?Low back pain?denies.?Psychiatric:?Depressed mood?denies.? * Medical History:?Left poplit eal artery aneurysm, repaired, Depression, Hyperlipidemia, CAD- 1997 non-eluting stent RCA, [place], Caracts, Scc right eyelid and forehead, Former smoker, Fractured metatarsal, Right-sided aortic arch, 4.5 cm ascending aortic aneurysm, Diastasis rectus. * Surgical History:?colonoscop y,negative 09/2009, repair popliteal aneurysm 01/2004, left cheek lesion removal [facility] 2021, Right hip surgery 12/2022. * Hospitalization/Major Diagno stic Procedure:?stent placement 2017. * Family History:?Father: dece ased, Malignant melanoma.?Mother: , hypertension, diagnosed with HTN.? His father at 63 of a malignant melanoma and his mother at 90 of an embolism. She was hyprtensive. One sibling has melanoma, hypothyroidism, arthritis and CAD. He is not aware of any family history of substance use disorder or mental illness or addiction. He has a personal history of depression. 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 He was [facility]. He is now working at the [employer]. * Medications:?Taking Vitamin C , Taking Vitamin D , Taking Zinc Skyler-Benzyl Gnl-Imksj-Aqg , Taking Antioxidant , Taking CoQ-10 , Taking Doxycycline Hyclate 100 MG Capsule 1 capsule Orally Once a day , Taking Gabapentin 100 MG Capsule 2 capsule Orally Twice a day , Taking Fluticasone Propionate 0.005 % Ointment 1 application to affected area Externally Twice a day , Taking CeleBREX 100 MG Capsule 1 capsule with food Orally Once a day , Taking Metoprolol Succinate ER 50 MG Tablet Extended Release 24 Hour TAKE 1 TABLET BY MOUTH DAILY Oral , Taking Finasteride 5 MG Tablet 1 tablet Orally Once a day , Taking Anoro Ellipta 62.5-25 MCG/ACT Aerosol Powder Breath Activated Inhalation , Taking Ciclopirox Olamine 0.77 % Cream External , Taking Ketoconazole 2 % Cream 1 application Externally Once a day , Taking buPROPion HCl ER (XL) 150 MG Tablet Extended Release 24 Hour TAKE 1 TABLET BY MOUTH EVERY DAY IN THE MORNING FOR 90 DAYS , Taking buPROPion HCl ER (XL) 300 MG Tablet Extended Release 24 Hour TAKE 1 TABLET BY MOUTH EVERY DAY IN THE MORNING FOR 90 DAYS , Taking Pantoprazole Sodium 40 MG Tablet Delayed Release TAKE 1 TABLET BY MOUTH EVERY DAY FOR 90 DAYS , Medication List reviewed and reconciled with the patient * Allergies:?No Known Drug All ergy. Objective: * Vitals:? * Examination: ???General Examination: ?GENERAL APPEARANCE:?pleasant, well nourished, well developed, in no acute distress, calm and relaxed.?HEAD:?atraumatic, normocephalic.?EYES:?eomi, perrla, anicteric, conjugate.?EARS:?normal.?NOSE:?septum intact.?ORAL CAVITY:?normal, unremarkable.?NECK/THYROID:?no jugular venous distention, no carotid bruit, thyroid normal.?LYMPH NODES:?no enlarged lymph nodes,spleen normal.?SKIN:?no suspicious lesions, anicteric.?HEART:?no clicks, gallops, murmurs, or rubs, regular rhythm, S1, S2 normal, no s3, or vascular bruits.?LUNGS:?clear to auscultation .?BREASTS:??no masses palpable bilaterally.?ABDOMEN:?bowel sounds normal, no ascites, no organomegaly, no mass.?RECTAL EXAM:?not examined.?MUSCULOSKELETAL:?extremities unremarkable, no clubbing, cyanosis or edema.?PERIPHERAL PULSES:?normal.?NEUROLOGIC:?alert and oriented, cranial nerves 2-12 grossly intact, deep tendon reflexes 2+ symmetrical, motor strength normal upper and lower extremities, sensory exam intact.?PSYCH:?alert, oriented.? Assessment: * Assessment: 1.?Hyperlipidemia - E78.5??? Notes :His lipids have been well controlled. A fasting lipid profile was ordered prior to his next visit. No change in his medications was made.??? Plan: * Treatment: 2.?Others? Continue buPROPion HCl ER (XL) Tablet Extended Release 24 Hour, 150 MG, TAKE 1 TABLET BY MOUTH EVERY DAY IN THE MORNING FOR 90 DAYS;?Continue buPROPion HCl ER (XL) Tablet Extended Release 24 Hour, 300 MG, TAKE 1 TABLET BY MOUTH EVERY DAY IN THE MORNING FOR 90 DAYS;?Continue Pantoprazole Sodium Tablet Delayed Release, 40 MG, TAKE 1 TABLET BY MOUTH EVERY DAY FOR 90 DAYS.?? * Images: * The named appointment provid er may or may not be the originator of this progress note, and it is not deemed complete until electronically signed by the appointment provider. Sign off status: Pending * Provider:?Tony Greenwood MD Date:?12/2023 Generated for Oralia buckley/Jose/eTneenasmitting on:?09/14/2024 03:57 PM EST History and Physical Notes * HPI (History of Present Illness) Category Sub-Category Detail Notes COVID-19 Screening Questions Have you had any new onset fever, chills, cough, congestion, sore throat, shortness of breath, muscle aches?: No Have you been exposed to the virus withi n the last 10 days?: No Have you travelled internationally in [facility] last 10 days?: No Have you been exposed to COVID-19 in the past?: No Examination Category Sub-Category Detail Notes General Examination GENERAL APPEARANCE: pleasant , well nourished, well developed, in no acute distress, calm and relaxed HEAD: atraumatic, normocep halic EYES: eomi, perrla, anicte ole, conjugate EARS: normal NOSE: septum intact NECK/THYROID: no jugular venous di stention, no carotid bruit, thyroid normal HEART: no clicks, gallops, murmurs, or rubs, regular rhythm, S1, S2 normal, no s3, or vascular bruits LUNGS: clear to auscultatio n ABDOMEN: bowel sounds normal, no ascites, no organomegaly, no mass NEUROLOGIC: alert and oriented, cranial nerves 2-12 grossly intact, deep tendon reflexes 2+ symmetrical, motor strength normal upper and lower extremities, sensory exam intact SKIN: no suspicious lesion s, anicteric PERIPHERAL PULSES: normal BREASTS: no masses palpable b ilaterally MUSCULOSKELETAL: extremities unremark able, no clubbing, cyanosis or edema LYMPH NODES: no enlarged lymph no lynne,spleen normal RECTAL EXAM: not examined PSYCH: alert, oriented ORAL CAVITY: normal, unremarkable
--- OUTSIDE RECORDS SUMMARY | 2024-09-14 15:57 | XMS_ITS ---
Author Organization Tony Greenwood III, MD Address [address] [place] [address] [place] [address] Care Team Providers Care Voip Network Technician Name Role Phone Tony Greenwood Primary Care Provider [phone] Medications Medication SIG (Take, Route, Fr equency, Duration) Notes Start Date End Date Status Celecoxib 200 MG 1 capsule with food Orally Once a day for 30 days 10/24/2023 05/20/2024 Active Gabapentin 100 MG 2 capsules Orally tw ice a day for 30 days 10/24/2023 Active Encounters Encounter Location Date Provider Diagnosis Tony Greenwood III, MD [address] [place] [address] [place] [id number] 10/24/2023 Tony Greenwood Plan Of Treatment Medication Medication Name Sig Start Date Stop Date Notes Celecoxib 200 MG 1 capsule with food Orally Once a day for 30 days 10/24/2023 05/20/2024 Gabapentin 100 MG 2 capsules Orally tw ice a day for 30 days 10/24/2023 Next Appt Details Provider Name:Tony Greenwood, 09/28/2024 03:00:00 PM, [address] [place] [address] [place], [id number], Progress Notes * Efrain PEDRO IIDOB: (83 yo M)Acc No.[id number]:10/24/2023 Patient:?Efrain Pedro :1940???Age:83 Y???Sex:Male Address:[address] [facility], [place] [address] * Refills? Start Gabapentin Capsule, 100 MG, Orally, 120 Capsule, 2 capsules, twice a day, 30 days, Refills=11 Start Celecoxib Capsule, 200 MG, Orally, 30 Capsule, 1 capsule with food, Once a day, 30 days, Refills=6 * true * Date:? Generated for Oralia buckley/Jose/eTneenasmitting on:?09/14/2024 03:57 PM EST
--- OUTSIDE RECORDS SUMMARY | 2024-09-14 15:57 | XMS_ITS ---
Author Organization Tony Greenwood III, MD Address [address] [place] [address] DR BENZ Alexander [place] [id number] Care Team Providers Care Coat Finisher Name Role Phone Tony Greenwood Primary Care Provider [phone] Allergies Allergen (clinical drug ingredient) Drug/Non Drug Allergy documented on EMR Reaction Allergy Type Onset Date Status No Known Drug Allergy Unknown Drug Allergy Active Reason For Referral Reason Transfer of Care Con sult and Treat Diagnosis 1 Erectile dysfunction (N52.9) Diagnosis 2 BPH (benign prostati c hyperplasia) (N40.0) Referral Organization Tony Greenwood III, MD Referring Provider First Name Tony Referring Provider Last Name Krystyna Referring Provider Speciality Internal M edicine Referred Provider Luther Whitmore, ([place]) Referred Provider Specialty Urology General Notes Fouzia Roy 2023 11:40:18 AM EDT > Faxed referral and progress note Referral Priority Routine Referral Appointment Date 03/04/2024 REASON FOR VISIT Popliteal artery aneurysm, Peripheral arterial disease, Hypertension, Coronary artery disease, History of depression, Sleep apnea, Abdominal aortic aneurysm, A descending aortic aneurysm Medications Medication SIG (Take, Route, Frequency, Duration) Notes Start Date End Date Status Metoprolol Succinate ER 50 MG TAKE 1 TABLET BY MOUTH DAILY Oral Active Finasteride 5 MG 1 tablet Orally Once a day Active Anoro Ellipta 62.5-25 MCG/ACT Inhalation Active Ciclopirox Olamine 0.77 % External Active Ketoconazole 2 % 1 application Needle Grader ally Once a day 03/15/2023 Active Doxycycline Hyclate 100 MG 1 capsule Ora lly Once a day Active Gabapentin 100 MG 2 capsule Orally Twi ce a day Active Fluticasone Propionate 0.005 % 1 application to affected area Externally Twice a day 02/11/2018 Active Pantoprazole Sodium 40 MG 1 tablet Orall y Once a day 02/18/2019 Active CeleBREX 100 MG 1 capsule with food Orally Once a day Active Vitamin C Active Vitamin D Active Zinc Skyler-Benzyl Izv-Qiyaf-Zvi Active Antioxidant Active CoQ-10 Active Social History Tobacco Use: Social History Observation Description Date Details (start date - stop date) Former Smoker NA - NA Tobacco Use/Smoking Question Answer Notes Patient is a former smoker How long has it been since you last smoked? > 10 years Additional Findings: Tobacco Non-User Ex-cigaret te smoker Vital Signs Temperature 97.3 degrees Fahrenheit 12/27/19 24 Blood pressure systolic 99 mm Hg 12/27/19 24 Blood pressure diastolic 69 mm Hg 024 Heart Rate 70 /min 12/27/2023 Height 76 in 12/27/2023 Weight 215 lbs 12/27/2023 BMI 26.17 kg/m2 12/27/2023 Encounters Encounter Location Date Provider Diagnosis Tony Greenwood III, MD [address] [place] [address] [place] [address] 12/27/2023 Tony Greenwood Hyperlipidemia E78.5 ; Overweight E66.3 ; BPH (benign prostatic hyperplasia) N40.0 ; Essential hypertension I10 ; 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 ; Peripheral vascular disease I73.9 ; Ascending aortic aneurysm I71.2 ; Depression F32.9 ; Chronic GERD K21.9 ; Osteoarthritis of knees, bilateral M17.0 and Former smoker Z87.891 Assessments Encounter Date Diagnosis (ICD Code) Assessment Notes Treat ment Notes Treatment Clinical Notes 12/27/2023 Hyperlipidemia (ICD-10 - E78.5) His lipids have been well controlled. A fasting lipid profile was ordered prior to his next visit. No change in his medications was made. 12/27/2023 Overweight (ICD-10 - E66.3) His body mass index is 26. We discussed diet and nutrition. We made a plan to lose weight at a rate of one half of a pound per week.He has lost 12 pounds since his last visit. 12/27/2023 BPH (benign prostati c hyperplasia) (ICD-10 - N40.0) He rises from sleep once a night to urinate. No change in his medications was needed. 12/27/2023 Essential hypertension (ICD-10 - I10) His blood pressure today is 99/69. No change in his regimen as needed. 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 He is considering it. His claudication is mild. We discussed this at length today but no conclusion was reached. 12/27/2023 Peripheral vascular disease (ICD-10 - I73.9) He has iliac artery and popliteal artery aneurysm, some of which have been repaired. He has claudication but is able to conduct all of the activities of daily living. His vascular surgeon has recommended correction of the remaining popliteal artery. The patient is not certain he wants to undergo that surgery at this time. 12/27/2023 Ascending aortic aneurysm (ICD-10 - I71.2) He has a CT scan of the chest and a consultation with a cardiac surgeon regularly at scheduled intervals. He has had no chest pain or dyspnea. 12/27/2023 Depression (ICD-10 - F32.9) His depression is slightly worse after the surgery. He requested that I increase the bupropion to 450 mg a day. I have done so. This is a dose. He has taken successfully in the past. 12/27/2023 Chronic GERD (ICD-10 - K21.9) His chronic reflux symptoms are well controlled with agni-thm-vzusepu medication. 12/27/2023 Osteoarthritis of knees, bilateral (ICD-10 - M17.0) There was mild crepitus of his knees. He has occasional knee pain but is able to conduct all of the activities of daily life. 12/27/2023 Former smoker (ICD-1 0 - Z87.891) He is highly motivated not to smoke. He has a strategy for prevention of relapse and maintenance of abstinence. Plan Of Treatment Medication Medication Name Sig Start Date Stop Date Notes Metoprolol Succinate ER 50 MG TAKE 1 TAB LET BY MOUTH DAILY Oral Finasteride 5 MG 1 tablet Orally Once a day Anoro Ellipta 62.5-25 MCG/ACT Inhalation Ciclopirox Olamine 0.77 % External Ketoconazole 2 % 1 application Needle Grader ally Once a day 03/15/2023 Doxycycline Hyclate 100 MG 1 capsule Orally Once a day Gabapentin 100 MG 2 capsule Orally Twice a day Fluticasone Propionate 0.005 % 1 applica tion to affected area Externally Twice a day 02/11/2018 Pantoprazole Sodium 40 MG 1 tablet Orally Once a day 02/18 CeleBREX 100 MG 1 capsule with food Orally Once a day Vitamin C Vitamin D Zinc Skyler-Benzyl Qbb-Enowf-Cjr Antioxidant CoQ-10 Pending Test Test Name Order Date PROFILE, FASTING (COMPREHENSIVE METABOLI C) 12/27/2023 PSA, TOTAL 12/27/2023 CBC WITH AUTO DIFF 12/27/2023 Lipid Panel 12/27/2023 Referrals Referral Date Details 12/27/2023 12/27/2023, Transfer of Care Consult and Treat, (Jad) Luther Whitmore Next Appt Details Follow Up: As Scheduled , Re ason: OV, Annual Exam Provider Name:Tony Greenwood, 09/28/2024 03:00:00 PM, [address] [place] [address] [place], [place], [phone], Progress Notes * Efrain PEDRO IIDOB: (83 yo M)Acc No.[id number]:12/27/2023 Progress Notes Patient:?Mayela Efrain Garcia Provider:?Tony Greenwood MD :1940???Age:83 Y???Sex:Male Nuno e:12/27/2023 Address:[address] [place] [address], JOSE MARIA FAJARDOLUNA [phone] Subjective: * Chief Complaints: * ???Popliteal artery aneurysm Peripheral arterial diseaseHypertensionCoronary artery diseaseHistory of depressionSleep apneaAbdominal aortic aneurysmA descending aortic aneurysm * HPI: ???COVID-19 Screening:? He returns for a scheduled visit. He has lost 12 pounds through diet and exercise. He wants to switch his urologist to Dr. Luther Whitmore. He is completely retired at this point. He has been to vascular surgery to see Dr. Dee who wants to do an angiogram of the right leg and repair the right popliteal aneurysm which is partly thrombosed. His peripheral neuropathy continues to cause discomfort. He is sleeping well. He is compliant with all of his medications. ?Questions?Have you experienced fever, chills, cough, sore throat, shortness of breath, difficulty breathing, muscle aches, loss of taste or smell??No ?Have you been exposed to the virus within the last 10 days??No ?Have you travelled internationally in the last 10 days??No ?Have you been exposed to COVID-19 in the past??Yes * ROS:?General/Constitutional:?pain?Both legs, otherwise only normal aches and pains.?Chills?denies.?Fatigue?admits.?Fever?denies.?ENT:?Decreased hearing?in both ears.?Respiratory:?Cough?denies.?Cardiovascular:?Chest pain with exertion?Rarely.?Dyspnea on exertion?denies.?Shortness of breath?denies.?Gastrointestinal:?Constipation?occasional.?Decreased appetite?denies.?Diarrhea?denies.?Heartburn?denies.?Nausea?denies.?Rectal bleeding?denies.?Vomiting?denies.?Hematology:?bruising?denies.?petechiae?denies.?Swollen glands?none have been noted.?Genitourinary:?Frequent urination?once a night.?Musculoskeletal:?Muscle aches?denies.?Painful joints?denies.?Sciatica?denies.?Weakness?denies.?Skin:?Itching?denies.?Rash?denies.?Skin lesion(s)?denies.?Neurologic:?Difficulty speaking?denies.?Dizziness?denies.?Headache?denies.?Low back pain?denies.?Psychiatric:?Depressed mood?which is mild.? * Medical History:? 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 He was born [employer]. He is now working at the [employer]. * Medications:?TakingVitamin C Vitamin D Zinc Skyler-Benzyl Qto-Uwhxq-Gvr Antioxidant CoQ-10 Doxycycline Hyclate 100 MG Capsule 1 capsule Orally Once a dayGabapentin 100 MG Capsule 2 capsule Orally Twice a day Fluticasone Propionate 0.005 % Ointment 1 application to affected area Externally Twice a dayPantoprazole Sodium 40 MG Tablet Delayed Release 1 tablet Orally Once a dayCeleBREX 100 MG Capsule 1 capsule with food Orally Once a dayMetoprolol Succinate ER 50 MG Tablet Extended Release 24 Hour TAKE 1 TABLET BY MOUTH DAILY Oral Finasteride 5 MG Tablet 1 tablet Orally Once a dayAnoro Ellipta 62.5-25 MCG/ACT Aerosol Powder Breath Activated Inhalation Ciclopirox Olamine 0.77 % Cream External Ketoconazole 2 % Cream 1 application Externally Once a dayTaking Vitamin C Taking Vitamin D Taking Zinc Skyler-Benzyl Gvc-Kyugc-Twc Taking Antioxidant Taking CoQ-10 Taking Doxycycline Hyclate 100 MG Capsule 1 capsule Orally Once a dayTaking Gabapentin 100 MG Capsule 2 capsule Orally Twice a day Taking Fluticasone Propionate 0.005 % Ointment 1 application to affected area Externally Twice a dayTaking Pantoprazole Sodium 40 MG Tablet Delayed Release 1 tablet Orally Once a dayTaking CeleBREX 100 MG Capsule 1 capsule with food Orally Once a dayTaking Metoprolol Succinate ER 50 MG Tablet Extended Release 24 Hour TAKE 1 TABLET BY MOUTH DAILY Oral Taking Finasteride 5 MG Tablet 1 tablet Orally Once a dayTaking Anoro Ellipta 62.5-25 MCG/ACT Aerosol Powder Breath Activated Inhalation Taking Ciclopirox Olamine 0.77 % Cream External Taking Ketoconazole 2 % Cream 1 application Externally Once a dayDiscontinuedCelecoxib 200 MG Capsule 1 capsule with food Orally Once a day, stop date 05/20/2024uPROPion HCl ER (XL) 450 MG Tablet Extended Release 24 Hour 1 tablet in the morning Orally Once a dayAtorvastatin Calcium 80 MG Tablet 1 tablet Orally Once a dayWellbutrin XL 300 MG Tablet Extended Release 24 Hour 1 tablet in the morning Orally Once a dayViagra 100 MG Tablet 1 tablet as needed Orally Once a daySimvastatin 40 MG Tablet 1 tablet in the evening Orally Once a dayPlavix 75 MG Tablet 1 tablet Orally Once a dayAspirin 325 MG Tablet Delayed Release 1 tablet Orally Once a dayImdur Trelegy Ellipta 200-62.5-25 MCG/ACT Aerosol Powder Breath Activated Inhalation Metoprolol Succinate ER 50 MG Tablet Extended Release 24 Hour 1 tablet Orally Once a dayPantoprazole Sodium 40 MG Tablet Delayed Release 1 tablet Orally Once a dayWellbutrin XL 150 MG Tablet Extended Release 24 Hour 1 tablet in the morning Orally Once a dayCOVID-19 At-Home Test - Kit as directed In Vitro Test for CovidDoxycycline Hyclate 100 MG Tablet TAKE 1 TABLET BY MOUTH EVERY DAY Finasteride 5 MG Tablet 1 tablet Orally Once a day, stop date 09/14/2024Gabapentin 100 MG Capsule 2 capsules Orally twice a dayMedication List reviewed and reconciled with the patientDiscontinued Celecoxib 200 MG Capsule 1 capsule with food Orally Once a day, stop date 05/20/2024iscontinued buPROPion HCl ER (XL) 450 MG Tablet Extended Release 24 Hour 1 tablet in the morning Orally Once a dayDiscontinued Atorvastatin Calcium 80 MG Tablet 1 tablet Orally Once a dayDiscontinued Wellbutrin XL 300 MG Tablet Extended Release 24 Hour 1 tablet in the morning Orally Once a dayDiscontinued Viagra 100 MG Tablet 1 tablet as needed Orally Once a dayDiscontinued Simvastatin 40 MG Tablet 1 tablet in the evening Orally Once a dayDiscontinued Plavix 75 MG Tablet 1 tablet Orally Once a dayDiscontinued Aspirin 325 MG Tablet Delayed Release 1 tablet Orally Once a dayDiscontinued Imdur Discontinued Trelegy Ellipta 200-62.5-25 MCG/ACT Aerosol Powder Breath Activated Inhalation Discontinued Metoprolol Succinate ER 50 MG Tablet Extended Release 24 Hour 1 tablet Orally Once a dayDiscontinued Pantoprazole Sodium 40 MG Tablet Delayed Release 1 tablet Orally Once a dayDiscontinued Wellbutrin XL 150 MG Tablet Extended Release 24 Hour 1 tablet in the morning Orally Once a dayDiscontinued COVID-19 At-Home Test - Kit as directed In Vitro Test for CovidDiscontinued Doxycycline Hyclate 100 MG Tablet TAKE 1 TABLET BY MOUTH EVERY DAY Discontinued Finasteride 5 MG Tablet 1 tablet Orally Once a day, stop date 09/14/2024Discontinued Gabapentin 100 MG Capsule 2 capsules Orally twice a dayMedication List reviewed and reconciled with the patient * Allergies:?No Known Drug All ergyno[Allergies Verified] Objective: * Vitals:?Ht: 76, Wt:215, BMI: 26.17, BP:99/69, HR:70, Temp:97.3, Wt-k.52. * Examination: ???General Examination: ?GENERAL APPEARANCE:?pleasant, well nourished, well developed, in no acute distress, calm and relaxed , overweight , elderly man.?HEAD:?atraumatic, normocephalic.?EYES:?eomi, perrla, anicteric, conjugate.?EARS:?normal.?NOSE:?septum intact.?ORAL CAVITY:?normal, unremarkable.?NECK/THYROID:?no jugular venous distention, no carotid bruit, thyroid normal.?LYMPH NODES:?no enlarged lymph nodes,spleen normal.?SKIN:?no suspicious lesions, anicteric.?HEART:?no clicks, gallops, murmurs, or rubs, regular rhythm, S1, S2 normal, no s3, or vascular bruits.?LUNGS:?clear to auscultation .?BREASTS:??no masses palpable bilaterally.?ABDOMEN:?bowel sounds normal, no ascites, no organomegaly, no mass , overweight.?RECTAL EXAM:?not examined.?MUSCULOSKELETAL:?extremities unremarkable, no clubbing, cyanosis or edema.?PERIPHERAL PULSES:?Diminished in both lower extremities, popliteal aneurysm right popliteal fossa.?NEUROLOGIC:?alert and oriented, cranial nerves 2-12 grossly intact, deep tendon reflexes 2+ symmetrical, motor strength normal upper and lower extremities, sensory exam intact.?PSYCH:?alert, oriented , judgement and insight good , good eye contact , cooperative with exam , cognitive function intact , thought process logical, goal directed , speech clear.? Assessment: * Assessment: 1.?Hyperlipidemia - E78.5 (P rimary), His lipids have been well controlled. A fasting lipid profile was ordered prior to his next visit. No change in his medications was made.?2.?Overweight - E66.3, His body mass index is 26. We discussed diet and nutrition. We made a plan to lose weight at a rate of one half of a pound per week.He has lost 12 pounds since his last visit.?3. BPH (benign prostatic hyperplasia) - N40.0, He rises from sleep once a night to urinate. No change in his medications was needed.?4.?Essential hypertension - I10, His blood pressure today is 99/69. 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 He is considering it. His claudication is mild. We discussed this at length today but no conclusion was reached.?6.?Peripheral vascular disease - I73.9, He has iliac artery and popliteal artery aneurysm, some of which have been repaired. He has claudication but is able to conduct all of the activities of daily living. His vascular surgeon has recommended correction of the remaining popliteal artery. The patient is not certain he wants to undergo that surgery at this time.?7.?Ascending aortic aneurysm - I71.2, He has a CT scan of the chest and a consultation with a cardiac surgeon regularly at scheduled intervals. He has had no chest pain or dyspnea.?8.?Depression - F32.9, His depression is slightly worse after the surgery. He requested that I increase the bupropion to 450 mg a day. I have done so. This is a dose. He has taken successfully in the past.?9.?Chronic GERD - K21.9, His chronic reflux symptoms are well controlled with fpow-ceq-mnmcvhe medication.?10.?Osteoarthritis of knees, bilateral - M17.0, There was mild crepitus of his knees. He has occasional knee pain but is able to conduct all of the activities of daily life.?11.?Former smoker - Z87.891, He is highly motivated not to smoke. He has a strategy for prevention of relapse and maintenance of abstinence.? Plan: * Treatment: 2.?Overweight?LAB: PROFILE, FASTING (COMPREHENSIVE METABOLIC) ?LAB: PSA, TOTAL ?LAB: CBC WITH AUTO DIFF ?LAB: Lipid Panel 3.?BPH (benign prostatic hyp erplasia)?LAB: PROFILE, FASTING (COMPREHENSIVE METABOLIC) ?LAB: PSA, TOTAL ?LAB: CBC WITH AUTO DIFF ?LAB: Lipid Panel? Referral To:Luther Whitmore ([place])??Urology ?Reason:Transfer of Care Consult and Treat 4.?Others? Referral To:Luther Whitmore ([place])??Urology ?Reason:Transfer of Care Consult and Treat * Procedure Codes:? * Preventive Medicine:? ??Counseling:?Care goal follow-up plan:?Counseling for abnormal BMI given?Yes ?Above Normal BMI Follow-up?Dietary management education, guidance, and counseling, Dietary needs education, Exercise promotion: strength training, Exercise promotion: stretching, Feeding regime, Giving encouragement to exercise, Lifestyle education regarding diet, Nutrition / feeding management, Nutrition therapy, Prescribed activity/exercise education, Prescribed diet education, Prescribed dietary intake, Special diet education, Weight monitoring , Intervention, Order not done: Medical or Other reason not done ?Smoking/Tobacco Use?Patient counseled on the dangers of tobacco use and urged to quit.?12/27/2023 * Follow Up:?As Scheduled (Yu son: OV, Annual Exam) * Images: * Sign off status: Completed true * Provider:?Tony Greenwood MD Date:?12/13 Generated for Oralia buckley/Jose/eTransmitting on:?09/14/2024 03:57 PM EST History and Physical Notes * HPI (History of Present Illness) Category Sub-Category Detail Notes COVID-19 Screening Questions Have you had any new onset fever, chills, cough, congestion, sore throat, shortness of breath, muscle aches?: No Have you been exposed to the virus withi n the last 10 days?: No Have you travelled internationally in [facility] last 10 days?: No Have you been exposed to COVID-19 in the past?: Yes Examination Category Sub-Category Detail Notes General Examination GENERAL APPEARANCE: pleasant , well nourished, well developed, in no acute distress, calm and relaxed , overweight , elderly man HEAD: atraumatic, normocep halic EYES: eomi, perrla, anicte ole, conjugate EARS: normal NOSE: septum intact NECK/THYROID: no jugular venous di stention, no carotid bruit, thyroid normal HEART: no clicks, gallops, murmurs, or rubs, regular rhythm, S1, S2 normal, no s3, or vascular bruits LUNGS: clear to auscultatio n ABDOMEN: bowel sounds normal, no ascites, no organomegaly, no mass , overweight NEUROLOGIC: alert and oriented, cranial nerves 2-12 grossly intact, deep tendon reflexes 2+ symmetrical, motor strength normal upper and lower extremities, sensory exam intact SKIN: no suspicious lesion s, anicteric PERIPHERAL PULSES: Diminished in both l ower extremities, popliteal aneurysm right popliteal fossa BREASTS: no masses palpable b ilaterally MUSCULOSKELETAL: extremities unremark able, no clubbing, cyanosis or edema LYMPH NODES: no enlarged lymph no lynne,spleen normal RECTAL EXAM: not examined PSYCH: alert, oriented , ju dgement and insight good , good eye contact , cooperative with exam , cognitive function intact , thought process logical, goal directed , speech clear ORAL CAVITY: normal, unremarkable Consultation Request Notes Referral Date Referring Provider Referred Provider Not es 12/27/2023 Tony Greenwood Alexander , ([place]) Transfer of Care Consult and Treat
--- OUTSIDE RECORDS SUMMARY | 2024-09-14 15:57 | XMS_ITS | Encounter Summary ---
Author Organization [email or web address] [facility] Address [address] [place] [address] [address] [place] [address] Care Team Providers Care Director Of Online Education Name Role Phone Unavailable Primary Care Provider Unavailabl e Encounter Details Date Type Department Care Team (Latest Contact Info) Description 06/19/2021 Abstract [facility] CONVERSIONS Dental, Provider, DDS Social History Tobacco Use Types Packs/Day Years Used Date Smoking Tobacco: Never Assessed Sex and Gender Information Value Date Recorded Sex Assigned at Male 05/14/2022 10:29 AM EDT Legal Sex Male 10:29 AM EDT Gender Identity Male 05/14/2022 10:29 AM EDT Sexual Orientation Straight 05/14/2022 10 :29 AM EDT documented as of this encounter Plan of Treatment Not on file documented as of this encounter Visit Diagnoses Not on filedocumented in this encounter
== END 2024-09-14 13:31 | disposition home or self-care (01) ==
LOC: HO.LAB 13:30
PROVIDERS: PCP Internal Medicine Medical Oncology; Visit Provider Internal Medicine Medical Oncology
DX: E78.5 Hyperlipidemia, unspecified (principal); E66.3 Overweight; N40.0 Benign prostatic hyperplasia without lower urinary tract symptoms; Z12.5 Encounter for screening for malignant neoplasm of prostate
CPT/HCPCS: 36415; 80053; 80061; 84153; 85025

== ENCOUNTER 2024-11-16 10:50 | Outpatient (AMB) | payer MEDICARE, OTHER, SELFPAY ==
--- NOTE | 2024-11-16 11:19 | MHC.OFFVIS ---
Vital Signs 11/16/24 11:20 Height 6 ft 4 in Weight 223 lb BMI 27.1 BP 118/68 Blood Pressure Location Rt brachial Position Sitting Pulse 74 Pulse Source Pulse Oximeter Pulse Oximetry (%) 99 Oxygen Delivery Method Room Air Intake Visit Reasons: INP - Dementia/Memory loss Intake Note: Patient referred by Dr. Greenwood for dementia,memory loss Allergies N.K.D.A. Allergy (Uncoded 11/16/24 11:20) Unknown Medication List - Last Reconciled 11/16/24 by Jessica Mcghee MD amoxicillin 2,000 mg (4 x 500 mg) PO ONCE 1 day aspirin 325 mg PO BID 6 weeks atorvastatin 80 mg PO BEDTIME bupropion HCl XL 450 mg PO BEDTIME [calcium ] celecoxib 200 mg PO DAILY cholecalciferol (vitamin D3) (Vitamin D3) 25 mcg PO BEDTIME clopidogrel 75 mg PO DAILY CPAP (CPAP Machine/Device) As directed docusate sodium (Colace) 100 mg PO BEDTIME finasteride 5 mg PO DAILY fluticasone furoate 100 mcg/actuation (Arnuity Ellipta) 1 inh inhalation DAILY 30 days gabapentin 200 mg PO TID gabapentin 400 mg PO BEDTIME 90 days metoprolol succinate ER 50 mg PO BEDTIME multivitamin 1 tab PO BEDTIME neomycin-polymyxin B-dexameth 3.5mg/mL-10,000 unit/mL-0.1 % 1 drp ophthalmic (eye) BID PRN pantoprazole 40 mg PO BEDTIME PRN umeclidinium-vilanterol 62.5-25 mcg/actuation (Anoro Ellipta) 1 ea inhalation DAILY vitamin B complex (B Complex-Vitamin B12 tablet) 1 tab PO BEDTIME [zinc ] HPI Comments Details: Vital Signs Intake Visit Reasons: INP - Dementia/Memory loss Allergies N.K.D.A. 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 He reports short term memory issues that was noticed by his for past 10 years . [facility] - Normal. He says his memory is the same, he forgets to buy things at the store sometimes. He forgets conversations sometimes, appointments etc. He thinks it is related to his hearing loss. He writes everything down in his calender to keep track of his appointments. he is independent in all ADLS. He has trouble with learning new technical stuff like computers and phones. He has h/o sleep apnea and was on CPAP but repeat study few years ago was normal. He is on wellbutrin for 25 years for depression He was diagnosed with neuropathy- has trouble with proprioception.This affects his balance- he had a fall at home 6 years ago . he is [facility] Medical History (Updated 11/16/24 @ 12:07 by Jessica Mcghee MD) Cognitive impairment PLMD (periodic limb movement disorder) CAD (coronary artery disease) Complex sleep apnea syndrome Wears hearing aid in both ears Personal history of nicotine dependence MARISOL on CPAP HTN (hypertension) Fracture of left distal radius Aortic aneurysm Pulmonary nodules COPD (chronic obstructive pulmonary disease) Osteoarthritis of right hip Cataracts, bilateral CAD (coronary artery disease) Hyperlipidemia Depression Surgical History Hx of vascular surgery History of heart artery stent (~1997) History of cataract surgery (~2009) History of colonoscopy Family History Mother No problems noted. Father No problems noted. 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 Physical Exam Vital Signs: Last Vital Signs Pulse 74 11/16/24 11:20 BP 118/68 11/16/24 11:20 Pulse Ox 99 11/16/24 11:20 Oxygen Delivery Method Room Air 11/16/24 11:20 BMI result Body Mass Index 27.1 Neuro Other: ns 11/16/2510:20 Height 6 ft 4 in Weight 223 lb BMI 27.1 BP 118/68 Blood Pressure Location Rt brachial Position Sitting Pulse 74 Pulse Source Pulse Oximeter Pulse Oximetry (%) 99 Oxygen Delivery Method Room Air Physical Exam Vital Signs: Last Vital Signs Pulse 74 11/16/24 11:20 BP 118/68 11/16/24 11:20 Pulse Ox 99 11/16/24 11:20 Oxygen Delivery Method Room Air 11/16/24 11:20 BMI result Body Mass Index 27.1 Const General: cooperative, healthy appearing and comfortable Nutritional Appearance: average body habitus Orientation/consciousness: patient oriented x3 Neuro Other: MMSE 28/30 General: patient oriented x3 Deep tendon reflexes (DTR's): Right triceps reflex intensity grade: 1+, Left triceps reflex intensity grade: 1+, Rt Biceps (C5, C6): 1+, Left biceps reflex intensity grade: 1+, Right brachioradialis reflex intensity grade: 1+, Left brachioradialis reflex intensity grade: 1+, Right patellar reflex intensity grade: 1+ and Left patellar reflex intensity grade: 1+ Coordination: zycjiz-bo-wnbz test normal Orientation What is the (year) (season) (date) (day) (month)?: year, season, date, day and month Where are we (state) (county) (town or city) (hospital) (floor)?: state, county, town or city, hospital/clinic and floor Registration Name of 3 unrelated objects clearly and slowly, then ask patient to repeat all 3 of them. (1st repeat determines score. Make sure they can repeat all three): object 1, object 2 and object 3 Attention & Calculation (CHOOSE ONE) Ask pt to begin with 100 & count backward by 7. Stop after 5 repeats. If pt cannot ask them to spell the word WORLD backward.: 93, 86, 79 and 72 Recall Ask patient to repeat the 3 items from question #3.: object 2 and object 3 Language Show patient a wristwatch & ask what it is. Repeat for pencil.: watch and pencil Ask the patient to repeat the phrase 'No ifs, ands, or buts' after you.: correct Ask the patient to 'take a piece of paper with their right hand' 'fold paper in half' 'place paper on floor': take paper in right hand, fold paper in half and place paper on floor Print the sentence 'CLOSE YOUR EYES' on a piece. If patient actually closes eyes then score.: followed written direction Give patient a blank piece of paper & ask to write a sentence. Score if it contains a noun & verb.: sentence contains subject and verb Ask patient to copy figure of intersecting pentagons exactly. Score if all 10 angles & 2 intersects are included.: all 10 angles present & 2 are intersected Score Score: 28 Assessment & Plan Assessment & Plan (1) Cognitive impairment: Code(s): R41.89 - Other symptoms and signs involving cognitive functions and awareness Category: Medical Plan aPlan I will evaluate him with MRI brain . check Vit B 12 TSH Will conside PET amyloid . Continue exercise. Orders: Orders PET Brain beta amyloid 11/16/24 R41.89 - Other symptoms and signs involving cognitive functions and awareness TSH reflex Free T4 11/16/24 R41.89 - Other symptoms and signs involving cognitive functions and awareness Vitamin B12 and Folate 11/16/24 R41.89 - Other symptoms and signs involving cognitive functions and awareness MR head/brain wo con 11/16/24 R41.89 - Other symptoms and signs involving cognitive functions and awareness Coding Level of Care Code New Pt Level 4 (34749) Diagnoses Cognitive impairment R41.89
[2024-11-16 11:20] VITALS: BP 118/68; PULSE 74; O2SAT 99; BMI 27.1
--- NOTE | 2024-11-16 11:34 | HO.NEPHOV ---
Vital Signs 11/16/24 11:20 Height 6 ft 4 in Weight 223 lb BMI 27.1 BP 118/68 Blood Pressure Location Rt brachial Position Sitting Pulse 74 Pulse Source Pulse Oximeter Pulse Oximetry (%) 99 Oxygen Delivery Method Room Air Intake Visit Reasons: INP - Dementia/Memory loss Allergies N.K.D.A. 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 He reports short term memory issues that was noticed by his for past 10 years . [facility] - Normal. He says his memory is the same, he forgets to buy things at the store sometimes. He forgets conversations sometimes, appointments etc. He thinks it is related to his hearing loss. He writes everything down in his calender to keep track of his appointments. he is independent in all ADLS. He has trouble with learning new technical stuff like computers and phones. He has h/o sleep apnea and was on CPAP but repeat study few years ago was normal. He is on wellbutrin for 25 years for depression He was diagnosed with neuropathy- has trouble with proprioception.This affects his balance- he had a fall at home 6 years ago . he is very careful now . diagnsoed him with neuropathy. [facility] Medical History PLMD (periodic limb movement disorder) CAD (coronary artery disease) Complex sleep apnea syndrome Wears hearing aid in both ears Personal history of nicotine dependence MARISOL on CPAP HTN (hypertension) Fracture of left distal radius Aortic aneurysm Pulmonary nodules COPD (chronic obstructive pulmonary disease) Osteoarthritis of right hip Cataracts, bilateral CAD (coronary artery disease) Hyperlipidemia Depression Surgical History Hx of vascular surgery History of heart artery stent (~1997) History of cataract surgery (~2009) History of colonoscopy Family History Mother No problems noted. Father No problems noted. 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 Physical Exam Vital Signs: Last Vital Signs Pulse 74 11/16/24 11:20 BP 118/68 11/16/24 11:20 Pulse Ox 99 11/16/24 11:20 Oxygen Delivery Method Room Air 11/16/24 11:20 BMI result Body Mass Index 27.1 Const General: cooperative, healthy appearing and comfortable Nutritional Appearance: average body habitus Orientation/consciousness: patient oriented x3 Neuro Other: MMSE General: patient oriented x3 Deep tendon reflexes (DTR's): Right triceps reflex intensity grade: 1+, Left triceps reflex intensity grade: 1+, Rt Biceps (C5, C6): 1+, Left biceps reflex intensity grade: 1+, Right brachioradialis reflex intensity grade: 1+, Left brachioradialis reflex intensity grade: 1+, Right patellar reflex intensity grade: 1+ and Left patellar reflex intensity grade: 1+ Coordination: xiraif-we-kpdd test normal Orientation What is the (year) (season) (date) (day) (month)?: year, season, date, day and month Where are we (state) (county) (town or city) (hospital) (floor)?: state, county, town or city, hospital/clinic and floor Registration Name of 3 unrelated objects clearly and slowly, then ask patient to repeat all 3 of them. (1st repeat determines score. Make sure they can repeat all three): object 1, object 2 and object 3 Attention & Calculation (CHOOSE ONE) Ask pt to begin with 100 & count backward by 7. Stop after 5 repeats. If pt cannot ask them to spell the word WORLD backward.: 93, 86, 79 and 72 Recall Ask patient to repeat the 3 items from question #3.: object 2 and object 3 Language Show patient a wristwatch & ask what it is. Repeat for pencil.: watch and pencil Ask the patient to repeat the phrase 'No ifs, ands, or buts' after you.: correct Ask the patient to 'take a piece of paper with their right hand' 'fold paper in half' 'place paper on floor': take paper in right hand, fold paper in half and place paper on floor Print the sentence 'CLOSE YOUR EYES' on a piece. If patient actually closes eyes then score.: followed written direction Give patient a blank piece of paper & ask to write a sentence. Score if it contains a noun & verb.: sentence contains subject and verb Ask patient to copy figure of intersecting pentagons exactly. Score if all 10 angles & 2 intersects are included.: all 10 angles present & 2 are intersected Score Score: 28 Results Reviewed Nephrology Results: Hgb 14.0 g/dl (14.0-18.0) 09/14/24 WBC 7.4 X10*3/uL (4.8-10.8) 09/14/24 Plt Count 252 X10*3/uL (160-400) 09/14/24 Sodium 146 mmol/L (135-145) H 09/14/24 Potassium 5.0 mmol/L (3.3-5.1) 09/14/24 Chloride 110 mmol/L (96-108) H 09/14/24 Carbon Dioxide 29 mmol/L (22-29) 09/14/24 BUN 30 mg/dL (9-16) H 09/14/24 Creatinine 1.54 mg/dL (0.5-1.4) H 09/14/24 Calcium 9.5 mg/dL (8.4-10.2) 09/14/24 Assessment & Plan Assessment & Plan (1) Cognitive impairment: Code(s): R41.89 - Other symptoms and signs involving cognitive functions and awareness Category: Medical Plan I will evaluate him with MRI brain . check Vit B 12 TSH Will conside PET amyloid . Continue exercise. Orders: Orders TSH reflex Free T4 Today R41.89 - Other symptoms and signs involving cognitive functions and awareness Vitamin B12 and Folate Today R41.89 - Other symptoms and signs involving cognitive functions and awareness MR head/brain wo con Today R41.89 - Other symptoms and signs involving cognitive functions and awareness Coding Level of Care Code New Pt Level 4 (81293) Diagnoses Cognitive impairment R41.89
--- OUTSIDE RECORDS SUMMARY | 2024-11-16 12:21 | XMS_ITS ---
Author Organization Tony Greenwood III, MD Address [address] [place] [address] DR BENZ Alexander [place] [address] Care Team Providers Care Aviation All Source Intelligence Name Role Phone Tony Greenwood Primary Care [...] External Active Ketoconazole 2 % 1 application Cooker Syrup ally Once a day 03/15/2023 Active Doxycycline [...] C Active Vitamin D Active Zinc Skyler-Benzyl Euo-Shooa-Ikm Active Antioxidant Active CoQ-10 Active Social History [...] Date Provider Diagnosis Tony Greenwood III, MD [address] [place] [address] [place] [address] 12/27/2023 Tony Greenwood Hyperlipidemia E78.5 ; Overweight [...] chronic reflux symptoms are well controlled with qmcv-bgb-qmhlpga medication. 12/27/2023 Osteoarthritis of knees, bilateral (ICD-10 [...] % External Ketoconazole 2 % 1 application Cooker Syrup ally Once a day 03/15/2023 Doxycycline Hyclate [...] day Vitamin C Vitamin D Zinc Skyler-Benzyl Btu-Yvgjy-Duz Antioxidant CoQ-10 Pending Test Test Name Order Date PROFILE, FASTING (COMPREHENSIVE METABOLI C) 12/27/2023 PSA, TOTAL 12/27/2023 CBC WITH AUTO DIFF 12/27/2023 Lipid Panel 12/27/2023 Referrals Referral Date Details 12/27/2023 12/27/2023, Transfer of Care Consult and Treat, (Jad) Luther Whitmore Next Appt Details Follow Up: As Scheduled , Re ason: OV, Annual Exam Provider Name:Tony Greenwood, 02/02/2025 03:00:00 PM, [address] [place] [address] [address], [place], [phone], Provider Name:Tony Greenwood, 09/29/2025 03:00:00 PM, [address] [place] [address] [address], [place], [phone], Progress Notes * Efrain PEDRO IIDOB: (83 yo M)Acc No.[id number]:12/27/2023 Progress Notes Patient:?PedroEfrain valentine Provider:?Tony Greenwood MD :1940???Age:83 Y???Sex:Male Nuno e:12/27/2023 Address:[address] [place] [address], [place] [id number] Subjective: * Chief Complaints: * ???Popliteal artery [...] 09/2009repair popliteal aneurysm 01/2004left cheek lesion removal [facility] ight hip surgery 12/2022 * Hospitalization/Major [...] smoker ???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 He was born [facility]. He is now working at the [employer]. * Medications:?TakingVitamin C Vitamin D Zinc Skyler-Benzyl Zog-Vrsyu-Vtw Antioxidant CoQ-10 Doxycycline Hyclate 100 MG Capsule [...] C Taking Vitamin D Taking Zinc Skyler-Benzyl Zvy-Yuapg-Kti Taking Antioxidant Taking CoQ-10 Taking Doxycycline Hyclate [...] food Orally Once a day, stop date 4buPROPion HCl ER (XL) 450 MG Tablet Extended [...] chronic reflux symptoms are well controlled with ytmj-wkj-hwbgmwr medication.?10.?Osteoarthritis of knees, bilateral - M17.0, There [...] urged to quit.?12/27/2023 * Follow Up:?As Scheduled ([place] son: OV, Annual Exam) * Images: * Sign off status: Completed true * Provider:?Tony Greenwood MD Date:?12/13 Generated for Printlouise ng/Bryantg/eTransmitting on:?11/16/2024 12:20 PM EDT History and Physical Notes * HPI (History of Present Illness) Category Sub-Category Detail Notes COVID-19 Screening Questions Have you had any new onset fever, chills, cough, congestion, sore throat, shortness of breath, muscle aches?: No Have you been exposed to the virus withi n the last 10 days?: No Have you travelled internationally in [facility] last 10 days?: No Have you [...] Referral Date Referring Provider Referred Provider Not leandra 12/27/2023 Tony Greenwood Alexander , ([place]) Transfer of Care Consult and Treat
--- OUTSIDE RECORDS SUMMARY | 2024-11-16 12:21 | XMS_ITS ---
Author Organization Tony Greenwood III, MD Address [address] [place] [address] DR BENZ Alexander [place] [phone] Care Team Providers Care Lithograph Designer Name Role Phone Tony Greenwood Primary Care [...] lly Once a day Active Zinc Skyler-Benzyl Lem-Sjivc-Rci Active Antioxidant Active Vitamin D Active Vitamin C Active Pantoprazole Sodium 40 MG TAKE 1 TABLET BY MOUTH EVERY DAY FOR 90 DAYS Active Ketoconazole 2 % 1 application User Interface Developer ally Once a day 03/15/2023 Active buPROPion [...] Date Provider Diagnosis Tony Greenwood III, MD [address] [place] [address] 03/20/2024 Tony Greenwood Hyperlipidemia E78.5 Assessments Encounter [...] capsule Orally Once a day Zinc Skyler-Benzyl Afz-Sdwln-Iru Antioxidant Vitamin D Vitamin C Pantoprazole Sodium 40 MG TAKE 1 TABLET BY MOUTH EVERY DAY FOR 90 DAYS Ketoconazole 2 % 1 application User Interface Developer ally Once a day 03/15/2023 buPROPion HCl [...] Oral Next Appt Details Provider Name:Tony Greenwood, 02/02/2025 03:00:00 PM, [address] [place], [place], [phone], Provider Name:Tony Greenwood, 09/29/2025 03:00:00 PM, [address], [place], [phone], Progress Notes * Efrain PEDRO IIDOB: (84 yo M)Acc No.[id number]:03/20/2024 Progress Notes Patient:?Efrain PEDRO II Provider:?Tony Greenwood MD :1940???Age:84 Y???Sex:Male Nuno e:03/20/2024 Address:[address] [place] [address], [place] [id number] Subjective: * Chief Complaints: * ???1. Annual [...] Depression, Hyperlipidemia, CAD- 1997 non-eluting stent RCA, ND, Caracts, Scc right eyelid and forehead, Former smoker, Fractured metatarsal, Right-sided aortic arch, 4.5 cm ascending aortic aneurysm, Diastasis rectus. * Surgical History:?colonoscop y,negative 09/2009, repair popliteal aneurysm 01/2004, left cheek lesion removal [facility] 2021, Right hip surgery 12/2022. 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 He was born [facility]. He is now working at the [employer]. * Medications:?Taking Vitamin C , Taking Vitamin D , Taking Zinc Skyler-Benzyl Lwr-Tymkv-Jso , Taking Antioxidant , Taking CoQ-10 , [...] Provider:?Tony Greenwood MD Date:?12/2023 Generated for Oralia buckley/Jose/Joeitting on:?11/16/2024 12:21 PM EDT History and Physical Notes * HPI (History of Present Illness) Category Sub-Category Detail Notes COVID-19 Screening Questions Have you had any new onset fever, chills, cough, congestion, sore throat, shortness of breath, muscle aches?: No Have you been exposed to the virus withi n the last 10 days?: No Have you travelled internationally in e last 10 days?: No Have you been [...]
--- OUTSIDE RECORDS SUMMARY | 2024-11-16 12:21 | XMS_ITS | Encounter Summary ---
Author Organization [facility] Address [address] [place] [address] Care Team Providers Care Figure Skater Name Role Phone Unavailable Primary Care Provider [...]
--- OUTSIDE RECORDS SUMMARY | 2024-11-16 12:21 | XMS_ITS ---
Author Organization Tony Greenwood III, MD Address [address] [place] [address] DR BENZ Alexander [place] [id number] Care Team Providers Care Bird Tender Name Role Phone Tony Greenwood Primary Care [...] referral and would like it faxed to [phone] Referral Priority Routine Reason leg weakness gait training muscle strengthening Diagnosis 1 Peripheral polyneuro alexis (G62.9) Diagnosis 2 Weakness of lower ex tremity, unspecified laterality (R29.898) Referral Organization Tony Greenwood III, MD Referring Provider First Name Tony Referring Provider Last Name Krystyna Referring Provider Speciality Internal M edicine Referred Provider [facility] Physical Therapy Janusz Referred Provider Specialty Physical The rapist General Notes Jennifer Rachel DIRECTOR VISUAL 09/28 11:27:33 AM > ref/demo/progress note faxed to [facility] PT dept Referral Priority Routine Referral [...] External Active Ketoconazole 2 % 1 application Base Engineer ally Once a day 03/15/2023 Active CeleBREX [...] DAYS Active Vitamin D Active Zinc Skyler-Benzyl Glv-Ttsoz-Kwt Active Pantoprazole Sodium 40 MG TAKE 1 [...] has it been since you last smoked? Martya ter than 10 years Additional Findings: Tobacco [...] Date Provider Diagnosis Tony Greenwood III, MD [address] [place] [address] DR ADAN, [place] [phone] 09/28/2024 Tony Greenwood Coronary artery dise ase [...] chronic reflux symptoms are well controlled with aqyv-awe-uxoulah medication. 09/28/2024 Ascending aortic aneurysm (ICD-10 - [...] % External Ketoconazole 2 % 1 application Base Engineer ally Once a day 03/15/2023 CeleBREX 100 [...] FOR 90 DAYS Vitamin D Zinc Skyler-Benzyl Jzu-Ipioi-Gcp Pantoprazole Sodium 40 MG TAKE 1 TABLET [...] Referral Date Details 09/28/2024 09/28/2024, R/O brooke christianson Jessicalouise Mcghee 09/28/2024 09/28/2024, leg weak ness gait training muscle strengthening, [facility] Physical Therapy Next Appt Details Follow Up: 4 Months, Reason: ov review labs Provider Name:oTny Greenwood, 02/02/2025 03:00:00 PM, [address] [place] [address] [address], [place], [id number], Provider Name:Tony Greenwood, 09/29/2025 03:00:00 PM, [address] [place] [address] [address], [place], [phone], Progress Notes * Efrain PEDRO IIDOB: (84 yo M)Acc No.[id number]:09/28/2024 Progress Notes Patient:?Efrain PEDRO II Provider:?Tony Greenwood MD :1940???Age:84 Y???Sex:Male Nuno e:09/28/2024 Address:[address] [place] [address], [id number] Subjective: * Chief Complaints: * ???Annual Exam * HPI: ???Depression Screening:?He returns at the age of 84 for his annual physical examination.? He has had no difficulty with the recently inserted stent in his right popliteal artery aneurysm.? He sees his vascular surgeon regularly.? He says his balance is unnsteady and he wobbles from time to time but he has had no falls.? He has made a request to be referred to physical therapy for gait training and muscle strengthening which we have done.He denies any chest pain, palpitations syncope or dyspnea on exertion.? He feels generally well.? He? sleeps well and has a good appetite. He denies any significant joint pains.? He is completely retired at this point. ?PHQ-9?Little interest or pleasure in doing things?Several days ?Feeling down, depressed, or hopeless?Not at all ?Trouble falling or staying asleep, or sleeping too much?Not at all ?Feeling tired or having little energy?Several days ?Poor appetite or overeating?Not at all ?Feeling bad about yourself or that you are a failure, or have let yourself or your family down?Several days ?Trouble concentrating on things, such as reading the newspaper or watching television?Not at all ?Moving or speaking so slowly that other people could have noticed; or the opposite, being so fidgety or restless that you have been moving around a lot more than usual?Not at all ?Thoughts that you would be better off or of hurting yourself in some way?Not at all ?Total Score?3 ?Interpretation?Minimal Depression ???COVID-19 Screening:?Questions?Have you had any new onset fever, chills, cough, congestion, sore throat, shortness of breath, muscle aches??No ???SDOH Questions:?SDOH Questions?In the past year have you been worried about losing your housing??No ?In the past year have you or any family members you live with been unable to get any of the following when it was really needed? Check all that apply:?None ???Fall Risk Screening:?Fall History?Have you had any falls with injury in the past year??No ?Have you had two or more falls in the past year??No ?Fall Risk Assessment:? * ROS:?General/Constitutional:?pain?only normal aches and pains.?Chills?denies.?Fatigue?admits.?Fever?denies.?ENT:?Decreased hearing?in both ears.?Respiratory:?Cough?denies.?Cardiovascular:?Chest pain with exertion?denies.?Dyspnea on exertion?with prolonged activity.?Shortness of breath?denies.?Gastrointestinal:?Constipation?occasional.?Decreased appetite?denies.?Diarrhea?denies.?Heartburn?denies.?Nausea?denies.?Rectal bleeding?denies.?Vomiting?denies.?Hematology:?bruising?denies.?petechiae?denies.?Swollen glands?none have been noted.?Genitourinary:?Frequent urination?once a night.?Musculoskeletal:?Muscle aches?denies.?Painful joints?denies.?Sciatica?denies.?Weakness?denies.?Skin:?Itching?denies.?Rash?denies.?Skin lesion(s)?denies.?Neurologic:?Difficulty speaking?denies.?Dizziness?denies.?Headache?denies.?Low back pain?denies.?Psychiatric:?Depressed mood?which is mild.? * Medical History:? * Surgical History:?colonoscop y,negative 09/2009repair popliteal aneurysm 01/2004left cheek lesion removal [facility] ight hip surgery 12/2022Right popliteal aneurism stent 06/2024 * Hospitalization/Major Diagno stic Procedure:?stent placement 2017 [...] history of depression. 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 He was [facility]. He is now working at the [employer]. * Medications:?TakingbuPROPion HCl ER (XL) 150 MG Tablet Extended [...] DAYS Vitamin C Vitamin D Zinc Skyler-Benzyl Xwi-Yyzud-Smy Antioxidant CoQ-10 Gabapentin 100 MG Capsule 2 [...] C Taking Vitamin D Taking Zinc Skyler-Benzyl Qpx-Awbyo-Paa Taking Antioxidant Taking CoQ-10 Taking Gabapentin 100 [...] Objective: * Vitals:?Ht: 76, Wt:215, BMI: 26.17, BP:96/58, HR:71, Temp:97.2, Wt-k.52. * ???Past Orders: Lab:Prostate Specific Antige n * Collection [...] AM Order Date 09/14/2024 06/11/2023 12/18/2022 Triglycerides 233?H (Ref Range: <150 mg/dL) 114 (Ref Range: <150 mg/dL) 113 (Ref Range: mg/dL) Cholesterol 115 (Ref Range: <200 mg/dL) 106 (Ref Range: <200 mg/dL) 124 (Ref Range: mg/dL) LDL Cholesterol Calculated 34 (Ref Range: <100 mg/dL) 53 (Ref Range: <100 mg/dL) 66 (Ref Range: mg/dl) HDL Cholesterol 35?L (Ref Range: >40 mg/dL) 31?L (Ref Range: >40 mg/dL) 36 (Ref Range: mg/dL) * Lab:Adriana Anne. Nathen l Fast * Collection Date 09/14/2024 06/11/2023 12/18/2022 Collection Time 01:41 PM 11:14 AM 11:57 AM Order Date 09/14/2024 06/11/2023 12/18/2022 Sodium 146?H (Ref Range: 135-145 mmol/L) 142 (Ref Range: 135-145 mmol/L) 143 (Ref Range: 135-145 mmol/L) Bilirubin Total 1.1?H (Ref Range: 0.0-1.0 mg/dL) 1.0 (Ref Range: 0.0-1.0 mg/dL) 1.2?H (Ref Range: 0.0-1.0 mg/dL) Aspartate Amino Transferase [...] 3.3-5.1 mmol/L) 4.3 (Ref Range: 3.3-5.1 mmol/L) 5.4?H (Ref Range: 3.3-5.1 mmol/L) Chloride 110?H (Ref Range: 96-108 mmol/L) 109?H (Ref Range: 96-108 mmol/L) 109?H (Ref Range: 96-108 mmol/L) Carbon Dioxide 29 (Ref Range: 22-29 mmol/L) 28 (Ref Range: 22-29 mmol/L) 28 (Ref Range: 22-29 mmol/L) Anion Gap 12 (Ref Range: 12-20) 9?L (Ref Range: 12-20) 11?L (Ref Range: 12-20) Blood Urea Nitrogen 30?H (Ref Range: 9-16 mg/dL) 30?H (Ref Range: 9-16 mg/dL) 21?H (Ref Range: 9-16 mg/dL) Creatinine 1.54?H (Ref Range: 0.5-1.4 mg/dL) 1.24 (Ref Range: [...] (Ref Range: 4.8-10.8 X10*3/uL) Red Blood Count 4.17?L (Ref Range: 4.60-5.80 X10*6/uL) 4.26?L (Ref Range: 4.60-5.80 X10*6/uL) 3.07?L (Ref Range: 4.60-5.80 X10*6/uL) Hemoglobin 14.0 (Ref Range: 14.0-18.0 g/dl) 13.3?L (Ref Range: 14.0-18.0 g/dl) 10.0?L (Ref Range: 14.0-18.0 g/dl) Hematocrit 42.3 (Ref Range: 42.0-52.0 %) 40.9?L (Ref Range: 42.0-52.0 %) 30.1?L (Ref Range: 42.0-52.0 %) Mean Corpuscular Volume 101.4?H (Ref Range: 80.0-98.0 fL) 96.0 (Ref Range: 80.0-98.0 fL) 98.0 (Ref Range: 80.0-98.0 fL) Mean Corpuscular Hemoglobin 33.6?H (Ref Range: 27.0-33.0 pg) 31.2 (Ref Range: [...] 9.4-12.4 fL) 9.7 (Ref Range: 9.4-12.4 fL) 9.1?L (Ref Range: 9.4-12.4 fL) Neutrophils Percent Auto 58.2 (Ref Range: 45-73 %) 57.4 (Ref Range: 45-73 %) 71.0 (Ref Range: 45-73 %) Imm Gran Pct Auto 0.4 (Ref Range: 0.0-0.4 %) 0.3 (Ref Range: 0.0-0.4 %) 0.9?H (Ref Range: 0.0-0.4 %) Lymphocytes Percent Auto 26.4 (Ref Range: 20-40 %) 26.3 (Ref Range: 20-40 %) 14.5?L (Ref Range: 20-40 %) Monocytes Percent Auto 10.6 (Ref Range: 2-11 %) 10.9 (Ref Range: 2-11 %) 10.4 (Ref Range: 2-11 %) Eosinophils Percent Auto 3.9 (Ref Range: 0-4 %) 4.5?H (Ref Range: 0-4 %) 2.8 (Ref Range: [...] 0.00-0.03 X10*3/uL) 0.02 (Ref Range: 0.00-0.03 X10*3/uL) 0.08?H (Ref Range: 0.00-0.03 X10*3/uL) Lymphocytes Absolute Auto [...] neg Menstrating NR N/A n/a * Examination: ???General Examination: ?GENERAL APPEARANCE:?pleasant, well nourished, well developed, in no acute distress, calm and relaxed, overweight, elderly man, overweight, elderly man.?HEAD:?atraumatic, normocephalic, Small scar left cheek.?EYES:?eomi, perrla, anicteric, conjugate.?EARS:?normal.?NOSE:?septum intact.?ORAL CAVITY:?normal, unremarkable.?NECK/THYROID:?no jugular venous distention, no carotid bruit, thyroid normal.?LYMPH NODES:?no enlarged lymph nodes,spleen normal.?SKIN:?no suspicious lesions, anicteric.?HEART:?no clicks, gallops, murmurs, or rubs, regular rhythm, S1, S2 normal, no s3, or vascular bruits.?LUNGS:?clear to auscultation .?BREASTS:??no masses palpable bilaterally.?ABDOMEN:?bowel sounds normal, no ascites, no organomegaly, no mass, overweight, overweight.?RECTAL EXAM:?not examined.?MUSCULOSKELETAL:?extremities unremarkable, no clubbing, cyanosis or edema, Surgical scar right hip, no ulcerations, feet pink and warm.?PERIPHERAL PULSES:?Diminished in the lower extremities.?NEUROLOGIC:?alert and oriented, cranial nerves 2-12 grossly intact, deep tendon reflexes 2+ symmetrical, motor strength normal upper and lower extremities, sensory exam intact, Mild defects in memory.?PSYCH:?alert, oriented, Mild defects in memory.? Assessment: * Assessment: 1.?Coronary artery disease - I25.10 (Primary)???Notes :He has had no angina or diaphoresis or palpitations since his last visit. His coronary artery disease is stable. He is compliant with all his medications. His lipid profile is in its target range. He was seen by cardiology, November 19, 2022 and thought to be stable.???2.?Hyperlipidemia - E78.5???Notes :His lipids have been well controlled. A fasting lipid profile was ordered prior to his next visit. No change in his medications was made.???3.?Essential hypertension - I10???Notes :His blood pressure today is 99/69. 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 It is asymptomatic.???6.?Peripheral vascular disease - I73.9???Notes :He has iliac artery and popliteal artery aneurysm, some of which have been repaired. He has claudication but is able to conduct all of the activities of daily living. His vascular surgeon has recommended correction of the remaining popliteal artery. The patient is not certain he wants to undergo that surgery at this time.???7.?History of skin cancer - Z85.828???Notes :No new skin lesions were noted on today's examination. Surveillance will continue.???8.?Overweight - E66.3???Notes :His body mass index is 26. We discussed diet and nutrition. We made a plan to lose weight at a rate of one half of a pound per week.He has lost 12 pounds since his last visit.???9.?BPH (benign prostatic hyperplasia) - N40.0???Notes :He rises from sleep once a night to urinate. No change in his medications was needed.???10.?Chronic GERD - K21.9???Notes :His chronic reflux symptoms are well controlled with hmrr-ayf-etbmxwe medication.???11.?Ascending aortic aneurysm - I71.2???Notes :He has a CT scan of the chest and a consultation with a cardiac surgeon regularly at scheduled intervals. He has had no chest pain or dyspnea.???12.?Osteoarthritis of knees, bilateral - M17.0???Notes :There was mild crepitus of his knees. He has occasional knee pain but is able to conduct all of the activities of daily life.???13.?Memory loss - R41.3???Notes :He is mildly forgetful but is aware of it.? It is likely vascular in origin.? He remains able to care for himself at home living with his .? He remains mentally competent to make decisions.???14.?Former smoker - Z87.891???Notes :He is highly motivated not to smoke. He has a strategy for prevention of relapse and maintenance of abstinence.??? Plan: * Treatment: 2.?Others? Continue Clopidogrel Bisulfate Tablet, 75 MG, TAKE 1 TABLET BY MOUTH EVERY DAY;?Continue Doxycycline Hyclate Tablet, 100 MG, TAKE 1 TABLET BY MOUTH EVERY DAY;?Continue Celecoxib Capsule, 200 MG, TAKE 1 CAPSULE BY MOUTH EVERY DAY WITH FOOD FOR 30 DAYS;?Continue buPROPion HCl ER (XL) Tablet Extended [...] TABLET BY MOUTH EVERY DAY FOR 90 DAYS;?Continue Vitamin C;?Continue Vitamin D;?Continue Zinc Skyler-Benzyl Pcp-Dzupb-Qgp;?Continue Antioxidant;?Continue CoQ-10;?Continue Gabapentin Capsule, 100 MG, 2 capsule Orally Twice a day;?Continue Fluticasone Propionate Ointment, 0.005 %, 1 application to affected area, Externally, Twice a day;?Continue CeleBREX Capsule, 100 MG, 1 capsule with food, Orally, Once a day;?Continue Metoprolol Succinate ER Tablet Extended Release 24 Hour, 50 MG, TAKE 1 TABLET BY MOUTH DAILY, Oral;?Continue Finasteride Tablet, 5 MG, 1 tablet, Orally, Once a day;?Continue Anoro Ellipta Aerosol Powder Breath Activated, 62.5-25 MCG/ACT, Inhalation;?Continue Ciclopirox Olamine Cream, 0.77 %, External;?Continue Ketoconazole Cream, 2 %, 1 application, Externally, Once a day.? Referral To:[facility]??Physical Therapist ?Reason:leg weakness gait training muscle strengthening * Labs:? * ?Lab: PROFILE, FASTING ( COMPREHENSIVE METABOLIC) ?Lab: PSA, TOTAL ?Lab: CBC w DIFF ?Lab: Lipid Panel ?Lab: URINE DIP STICK (C ollection Date & Time - 09/28/2024) ? Value Reference Range ?SG 1.010 1.005 - 1.025 * ?pH 6.0 5.0 - 9.0 * ?SALOME Negative Negative - * ?NIT Negative Negative - * ?PRO 15 Negative - Trac e * ?GLU Negative Negative - * ?KET Negative Negative - * ?UBG 0.2 0.1 - 1.8 * ?ANGEL Negative 0.2 - 1.3 * ?BLD Negative Negative - * Procedure Codes:?60300 URINE -NO MICRO * Preventive Medicine:? ??Counseling:?Care goal follow-up plan:?Counseling for abnormal BMI given?Yes ?Above Normal BMI Follow-up?Dietary management education, guidance, and counseling, Dietary needs education, Exercise promotion: strength training ?Smoking/Tobacco Use?Patient counseled on the dangers of tobacco use and urged to quit.?09/28/2024 * Follow Up:?4 Months (Reason: ov review labs) * Images: * Sign off status: Completed true * Provider:?Tony Greenwood MD Date:?09/12 Generated for Oralia buckley/Jose/Lilly on:?11/16/2024 12:20 PM EDT History and Physical [...] had two or more falls in the st year?: No Fall Risk Assessment:: COVID-19 Screening [...] R/O dementia 09/28/2024 Tony Greenwood Physical The [facility] g[facility]mez leg weakness gait training muscle strengthening
--- OUTSIDE RECORDS SUMMARY | 2024-11-16 12:21 | XMS_ITS | Clinical Summary ---
Author Organization [employer] [facility] Address [address] [place] [address] [address] [place] [address] Care Team Providers Care Educational Speech Language Clinician Name Role Phone Unavailable Primary Care Provider [...] Insurance DENTAL - [employer] D[employer]AL [facility] [address] DENTAL - [employer] [facility] [facility] [place]
--- OUTSIDE RECORDS SUMMARY | 2024-11-16 12:22 | XMS_ITS | Patient Health Record ---
Author Organization Tony Greenwood III, MD Address [address] [place] [address] DR BENZ Alexander [place] [address] Care Team Providers Care Damage Appraiser Name Role Phone Tony Greenwood [facility] [...] 0.2 - 1.3 BLD Negative Negative - CT chest wo con Reviewed date:09/28/2024 03:10:03 PM Interpretation: Performing Lab: Notes/Report: [address] [address] [address] Scan Report Signed Patient: Efrain Pedro MR#: [id number] : 1940 Acct:[id number] Age/Sex: 84 / M ADM Date: 06/04/24 Loc: HO.CT Attending Dr: Valdo Haley MD Ordering Physician: Valdo Haley MD Date of Service: 06/04/24 Procedure(s): CT chest wo IV con Accession Number(s): [id number] cc: Tony Greenwood MD; Valdo Haley MD Report Number: [id number]: Total DLP = 214.00 mGy-cm EXAMINATION: CT CHEST WITHOUT CONTRAST CLINICAL INFORMATION: Pulmonary nodules, follow-up. COMPARISON: 12/29/2021, 09/14/2020. TECHNIQUE: Multidetector volumetric CT imaging of the chest was done. Axial MIP volume rendering provided. Sagittal and coronal reformatted images were obtained. This CT examination was performed using dose optimization techniques as appropriate, variously including the following: *Automated exposure control *Adjustment of mA and/or kV according to patient size (this includes techniques or standardized protocols for targeted exams where dose is matched to indication/reason for exam; i.e. extremities or head) *Use of iterative reconstruction technique Exam submitted for review 08/04/2024 3:07 PM SENIOR PENSIONS ADMINISTRATOR. FINDINGS: PULMONARY NODULES: -There are a few scattered tiny 2 to 3 mm nodules, some calcified, unchanged and benign. -There is no new or enlarging pulmonary nodule. LUNGS: -Moderate to severe centrilobular emphysematous changes are present, with bullous changes in the lower lobes bilaterally. -There is stable mild biapical scarring. -Mild thickening of the small airways is present suggesting chronic bronchitis. -No consolidations or abnormal groundglass opacities. -No evidence of interstitial lung disease. Line-Central airways are patent. Saber-sheath trachea. -No pleural effusion or pneumothorax. MEDIASTINUM: -There is a right-sided aortic arch with a normal branching pattern. Moderate atheromatous calcification of the aorta is present. There is aneurysmal dilatation of the ascending aorta measuring up to 4.6 cm. This appears stable when measured in similar technique. -Stable mild ectasia of the distal descending aorta. -Main pulmonary artery is normal in size. -There is no abnormal mediastinal or hilar lymphadenopathy present. -Heart size is normal. No pericardial effusion. -There is a small type I hiatus hernia GE junction. -Mildly patulous esophagus. -Thyroid gland is unremarkable. CORONARY ARTERY CALCIFICATION: Heavy four-vessel calcification is present. PLEURA: There is no pleural effusion. No pleural mass or thickening. AXILLA/CHEST WALL: No lymphadenopathy. UPPER ABDOMEN: -Moderate to heavy atheromatous calcification of the aorta and its branches. No aneurysm. -Remainder of the imaged upper abdominal contents appear normal. OSSEOUS STRUCTURES: -No suspicious lytic or blastic bone lesions. Mild degenerative changes of the spine. CT/CT chest wo IV con IMPRESSION: 1. A few scattered tiny calcified and noncalcified 2-3 mm pulmonary nodules are stable and benign. There is no new or enlarging pulmonary nodule. 2. Moderate to severe centrilobular emphysema, unchanged. Areas of scarring are also unchanged. No active pulmonary disease. 3. Right-sided aortic arch. Stable aneurysmal dilatation of the ascending aorta measuring up to 4.6 cm when measured similarly. 4. Mild thickening of the small airways suggesting chronic bronchitis. 5. Heavy coronary artery calcification. Electronically signed by: Tony Lopez MD 08/04/2024 04:22 PM [facility] Dictated By: Tony Lopez MD Signed By: <Electronically signed by Tony Lopez MD in OV> 08/04/24 1622 DD/ 0736 TD/TT: 06/04/24 0742 Metallurgical Technician: [place] [address] CT Scan Report Signed Patient: Efrain Pedro MR#: [id number] : 1940 Acct:[id number] Age/Sex: 84 / M ADM Date: 06/04/24 Loc: .CT Attending Dr: Valdo Haley MD Ordering Physician: Valdo Haley MD Date of Service: 06/04/24 Procedure(s): CT [facility] st wo IV con Accession Number(s): [id number] cc: Tony Greenwood MD; Valdo Haley MD Report Number: [id number]: Total DLP = 214.00 mGy-cm EXAMINATION: CT CHEST WITHOUT CONTRAST CLINICAL INFORMATION: Pulmonary nodules, follow-up. COMPARISON: 12/29/2021, 09/14/2020. TECHNIQUE: Multidetector volumetric CT imaging of the chest was done. Axial MIP volume rendering provided. Sagittal and coronal reformatted images were obtained. This CT examination was performed using dose optimization techniques as appropriate, various ly including the following: *Automated exposure control *Adjustment of mA and/or kV according to patient size (this includes techniques or standardized protocols for targeted exams where dose is matched to indication/reason for exam; i.e. extremities or head) *Use of iterative reconstruction technique Exam submitted for review 08/04/2024 3:07 PM SENIOR PENSIONS ADMINISTRATOR. FINDINGS: PULMONARY NODULES: -There are a few scattered tiny 2 to 3 mm nodules, some calcified, unchanged and benign. -There is no new or enlarging pulmonary nodule. LUNGS: -Moderate to severe centrilobular emphysematous changes are present, with bullous changes in the lower lobes bilaterally. -There is stable mil d biapical scarring. -Mild thickening of the small airways is present suggesting chronic bronchitis. -No consolidations o r abnormal groundglass opacities. -No evidence of interstitial lung disease. Line-Central airways are patent. Saber-sheath trachea. -No pleural effusion or pneumothorax. MEDIASTINUM: -There is a right-si ded aortic arch with a normal branching pattern. Moderate atheromatou s calcification of the aorta is present. There is aneurysmal dilatatio n of the ascending aorta measuring up to 4.6 cm. This appears stable when measured in similar technique. -Stable mild ectasia of the distal descending aorta. -Main pulmonary ranjit ry is normal in size. -There is no abnorma l mediastinal or hilar lymphadenopathy present. -Heart size is tram l. No pericardial effusion. -There is a small ty pe I hiatus hernia GE junction. -Mildly patulous esophagus. -Thyroid gland is unremarkable. CORONARY ARTERY CALCIFICATION: Heavy four-vessel calcification is present. PLEURA: There is no pleural effusion. No pleural mass or thickening. AXILLA/CHEST WALL: N o lymphadenopathy. UPPER ABDOMEN: -Moderate to heavy atheromatous calcification of the aorta and its branches. No aneurysm. -Remainder of the imaged upper abdominal contents appear normal. OSSEOUS STRUCTURES: -No suspicious lytic or blastic bone lesions. Mild degenerative changes of the spine. CT/CT chest wo IV con IMPRESSION: 1. A few scattered t iny calcified and noncalcified 2-3 mm pulmonary nodules are stable a nd benign. There is no new or enlarging pulmonary nodule. 2. Moderate to sever e centrilobular emphysema, unchanged. Areas of scarring are also unchanged. No active pulmonary disease. 3. Right-sided aorti c arch. Stable aneurysmal dilatation of the ascending aorta measuring up to 4.6 cm when measured similarly. 4. Mild thickening o f the small airways suggesting chronic bronchitis. 5. Heavy coronary artery calcification. Electronically dinorah d by: Tony Lopez MD 08/04/2024 04:22 PM [facility] Dictated By: Tony Lopez MD Signed By: <Electronically signed by Tony Lopez MD in OV> 08/04/24 1622 DD/ 0736 TD/TT: 06/04/2442 Metallurgical Technician: Complete Blood Count Auto Di ff Reviewed date:09/28/2024 03:10:03 PM Interpretation: Performing Lab:[facility], [address] [place] [phone] Notes/Report: White Blood Count 7.4 4.8-10.8 X10*3/uL Red Blood Count 4.17 4.60-5.80 X10*6/uL Hemoglobin 14.0 14.0-18.0 g/dl Hematocrit 42.3 42.0-52.0 % Mean Corpuscular Volume 101.4 80.0-98.0 fL Mean Corpuscular Hemoglobin 33.6 27.0-33.0 pg Mean Corpuscular HGB Conc 33.1 31.0-36.0 g/dl Red Cell Distribution Width 13.3 11.0-16.0 % Platelet Count 252 160-400 X10*3/uL Mean Platelet Volume 9.5 9.4-12.4 fL Neutrophils Percent Auto 58.2 45-73 % Imm Gran Pct Auto 0.4 0.0-0.4 % Lymphocytes Percent Auto 26.4 20-40 % Monocytes Percent Auto 10.6 2-11 % Eosinophils Percent Auto 3.9 0-4 % Basophils Percent Auto 0.5 0-2 % NRBC Pct Auto 0.0 0.0-0.2 /100WBC Neutrophils Absolute Auto 4.3 2.0-8.3 x10*3/u L Imm Gran Abs Auto 0.03 0.00-0.03 X10*3/uL Lymphocytes Absolute Auto 2.0 1.2-4.9 X10*3/u L Monocytes Absolute Auto 0.8 0.1-1.2 X10*3/uL Eosinophils Absolute Auto 0.3 0.0-0.4 X10*3/u L Basophils Absolute Auto 0.0 0.0-0.2 X10*3/uL NRBC Abs Auto 0.000 0.0-0.012 X10*3/uL Comprehensive Hawkeye. Panel Fa st Reviewed date:09/28/2024 03:10:03 PM Interpretation: Performing Lab:[facility], [address] [place] [phone] Notes/Report: Sodium 146 135-145 mmol/L Potassium 5.0 3.3-5.1 mmol/L Chloride 110 96-108 mmol/L Carbon Dioxide 29 22-29 mmol/L Anion Gap 12 12-20 Blood Urea Nitrogen 30 9-16 mg/dL Creatinine 1.54 0.5-1.4 mg/dL Estimated Glomerular Filt Rate 43 Chronic Kidney Disease: Estimated GFR < 60 mL/min/1.73m2 Severe Kidney Disease: Estimated GFR < 15 mL/min/1.73m2 Glucose Fasting 66 60-99 mg/dL Calcium 9.5 8.4-10.2 mg/dL Bilirubin Total 1.1 0.0-1.0 mg/dL Aspartate Amino Transferase 31 5-37 U/L Alanine Aminotransferase 32 0-40 U/L Total Protein 7.3 6.5-8.0 g/dL Albumin Level 4.1 3.5-5.0 g/dL Alkaline Phosphatase 71 39-117 U/L Lipid Panel Reviewed date:09/28/2024 03:10:03 PM Interpretation: Performing Lab:[facility], [address] [place] [phone] Notes/Report: Triglycerides 233 <150 mg/dL Desirable Triglyceride: less than 150 mg/dL Borderline High Triglyceride 150-199 mg/dL High Triglyceride: 200-499 mg/dL Very High Triglyceride: greater than or equal to 5OO mg/dL Cholesterol 115 <200 mg/dL Desirable Cholesterol: less than 200 mg/dL Borderline High Cholesterol: 200-239 mg/dL High Cholesterol: greater than 239 mg/dL LDL Cholesterol Calculated 34 <100 mg/dL Desirable LDL: less than 100 mg/dL Near Optimal/Above Optimal LDL: 110-129 mg/dL Borderline High LDL: 130-159 mg/dL High LDL: 160-189 mg/dL Very High LDL: greater than or equal to 190 mg/dL HDL Cholesterol 35 >40 mg/dL Desirable HDL: greater than 40 mg/dL Note: This HDL assay may give artificially low results in patients with liver disease. Prostate Specific Antigen Reviewed date:09/28/2024 03:10:03 PM Interpretation: Performing Lab:[facility], [address], [place] [address] Notes/Report: Prostate Specific Antigen 1.47 <0.05-4.0 ng/mL PSA methodology: Puente Alinity i Chemiluminescent Microparticle Immunoassay (CMIA) Reason For Referral Reason Transfer of Care Con sult and Treat Diagnosis 1 Erectile dysfunction (N52.9) Diagnosis 2 BPH (benign prostati c hyperplasia) (N40.0) Referral Organization Tony Greenwood III, MD Referring Provider First Name Tony Referring Provider Last Name Greenwood Referring Provider Speciality Internal edicine Referred Provider Luther Whitmore ([place]) Referred Provider Specialty Urology General Notes Fouzia Roy 2023 11:40:18 AM EDT > Faxed referral and progress note Referral Priority Routine Referral Appointment Date 03/04/2024 Reason R/O dementia Diagnosis 1 Memory loss (R41.3) Referral Organization Tony Greenwood III, MD Referring Provider First Name Tony Referring Provider Last Name Greenwood Referring Provider Speciality Internal edicine Referred Provider Jessica Mcghee Referred Provider [...] referral and would like it faxed to [phone] Referral Priority Routine Reason leg weakness gait training muscle strengthening Diagnosis 1 Peripheral polyneuro alexis (G62.9) Diagnosis 2 Weakness of lower ex tremity, unspecified laterality (R29.898) Referral Organization Tony Greenwood III, MD Referring Provider First Name Tony Referring Provider Last Name Krystyna Referring Provider Speciality Internal edicine Referred Provider [facility] Janusz Referred Provider Specialty Physical The rapist General Notes Rachel Rodriguez CMA 09/28 11:27:33 AM > ref/demo/progress note faxed to [facility] PT dept Referral Priority Routine Referral Appointment Date 10/13/2024 Medications Medication SIG (Take, Route, Frequency, Duration) Notes Start Date End Date Status Finasteride 5 MG TAKE 1 TABLET BY DIAMOND TH EVERY DAY FOR 30 DAYS for 90 Active Vitamin D Active Zinc Skyler-Benzyl Ojq-Ixffq-Wqk Active Pantoprazole Sodium 40 MG TAKE 1 TABLET BY MOUTH EVERY DAY FOR 90 DAYS Active Vitamin C Active buPROPion HCl ER (XL) 300 MG TAKE 1 TABLET BY MOUTH EVERY DAY IN THE MORNING FOR 90 DAYS Active Anoro Ellipta 62.5-25 MCG/ACT Inhalation Active Celecoxib 200 MG TAKE 1 CAPSULE BY MO UTH EVERY DAY WITH FOOD FOR 30 DAYS Active CeleBREX 100 MG 1 capsule with food Orally Once a day Active buPROPion HCl ER (XL) 150 MG TAKE 1 TABLET BY MOUTH EVERY DAY IN THE MORNING FOR 90 DAYS Active Metoprolol Succinate ER 50 MG TAKE 1 TABLET BY MOUTH DAILY Oral Active Clopidogrel Bisulfate 75 MG TAKE 1 TABLE T BY MOUTH EVERY DAY Active Gabapentin 100 MG 2 capsule Orally Twi ce a day Active Doxycycline Hyclate 100 MG TAKE 1 TABLET BY MOUTH EVERY DAY Active Fluticasone Propionate 0.005 % 1 application to affected area Externally Twice a day 02/11/2018 Active Antioxidant Active CoQ-10 Active Ciclopirox Olamine 0.77 % External Active Ketoconazole 2 % 1 application Manager Balance ally Once a day 03/15/2023 Active Immunizations Vaccine Route Administration Date Status Comme nts Influenza Unknown 05/08/2012 Administered Pneumococcal Unknown 05/08/2012 Administered Rabies, intramuscular Unknown 04/02/2006 Administered Influenza Unknown 04/26/2015 Administered Influenza Unknown 04/16/2016 Administered Pneumococcal Unknown 04/18/2016 Administered COVID Pfizer Bivalent Unknown 11/28/2022 Administered COVID PFIZER Unknown 07/04/2020 Administered SHINGRIX Unknown 02/21/2018 Administered Comirnaty Pfizer COVID-19 12+ Unknown 04/22/2023 Administered SHINGRIX Unknown 11/10/2017 Administered Influenza-iiv4 p-free high dose Unknown 03/27/2023 Administered COVID PFIZER Unknown 04/11/2021 Administered COVID Pfizer Bivalent Unknown 04/23/2022 Administered Comirnaty Pfizer COVID-19 12+ Unknown 03/30/2024 Administered PCV13 Unknown 10/28/2020 Administered RSV vaccine, bivalent, protein subunit RSV prefusion F Unknown 03/27/2023 Administered Fluzone High-Dose (HD-IIV3) Unknown 04/10/2017 Administ kecia COVID PFIZER Unknown 07/27/2020 Administered Flu-IIv4 Unknown 04/18/2016 Administered Flu-IIv3 Unknown 04/14/2019 Administered COVID-19 Moderna SPIKEVAX Unknown 10/10/2023 Administer ed PPV 23 Unknown 11/13/2021 Administered COVID PFIZER Unknown 10/23/2021 Administered Flu-IIv3 Unknown 03/24/2018 Administered Fluzone High-Dose (HD-IIV3) Unknown 03/30/2024 Administ kecia Tdap Unknown 09/09/2024 Administered PCV20 Unknown 10/10/2023 Administered PCV13 Unknown 04/18/2016 Administered Influenza-iiv4 p-free high dose Unknown 03/18/2021 Administered Measles Unknown 12/01/2002 History of Immunity Mumps Unknown 12/01/2002 History of Immunity Rubella Unknown 12/02/2002 History of Immunity Social History Tobacco Use: Social History Observation [...] ast year? No Points 0 Interpretation Negative Problems Problem Type SNOMED Code ICD Code Onset Dates Problem Status W/U Status Risk Notes Problem 3060968 Former smoker (Z87.891) Active confirmed He is highly motivated not to smoke. He has a strategy for prevention of relapse and maintenance of abstinence. Problem 86069645 Hyperlipidemia (E78.5) Active confirmed His lipids have been well controlled. A fasting lipid profile was ordered prior to his next visit. No change in his medications was made. Problem 573188341 Overweight (E66.3) Active confirmed His body mass index is 26. We discussed diet and nutrition. We made a plan to lose weight at a rate of one half of a pound per week.He has lost 12 pounds since his last visit. Problem 12001547 Depression (F32.9) Active confirmed His depression is slightly worse after the surgery. He requested that I increase the bupropion to 450 mg a day. I have done so. This is a dose. He has taken successfully in the past. Problem 22611702 Simple chronic bronchitis (J41.0) Active confirmed Problem Osteoarthritis of hip (964417228) Osteoarthritis of hip, unspecified (M16.9) Active confirmed He occasionally has pain in his right hip that requires him to stop and rest frequently. He is scheduled for surgery to replace the right hip joint on January 08, [address] Rahman at [facility]. His blood work is adequate. His electrocardiogram is unremarkable. He has had clearance from pulmonary and cardiology. He is given general medical clearance for the procedure. His risk is greater than average because of his multiple comorbidities and coronary artery disease but is acceptable. He is granted, medical clearance. Problem 19670308 Coronary artery disease (I25.10) Active confirmed He has had no angina or diaphoresis or palpitations since his last visit. His coronary artery disease is stable. He is compliant with all his medications. His lipid profile is in its target range. He was seen by cardiology, November 19, 2022 and thought to be stable. Problem 648803104 BPH (benign prostatic hyperplasia) (N40.0) Active confirmed He rises from sleep once a night to urinate. No change in his medications was needed. Problem 87429891 Essential hypertension (I10) Active confirmed His blood press ure today is 99/69. No change in his regimen as needed. Problem 364193068 Peripheral vascular disease (I73.9) Active confirmed He has iliac artery and popliteal artery aneurysm, some of which have been repaired. He has claudication but is able to conduct all of the activities of daily living. His vascular surgeon has recommended correction of the remaining popliteal artery. The patient is not certain he wants to undergo that surgery at this time. Problem 486047006 Erectile dysfunction (N52.9) Active confirmed His current medications are effective. Problem 26891762 Memory loss (R41.3) Active confirmed He is mildly forgetful but is aware of it. It is likely vascular in origin. He remains able to care for himself at home living with his . He remains mentally competent to make decisions. Problem 83183957 Obstructive sleep apnea (G47.33) Active confirmed He continues to use his CPAP machine with good effect. He denies any recent daytime somnolence. Problem 683839335 Ascending aortic aneurysm (I71.2) Active confirmed He has a CT sca n of the chest and a consultation with a cardiac surgeon regularly at scheduled intervals. He has had no chest pain or dyspnea. 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 It is asymptomatic. Problem 478937354 History of skin cancer (Z85.828) Active confirmed No new skin lesions were noted on today's examination. Surveillance will continue. Problem 84074655 Hoarseness (R49.0) Active confirmed His voice was m uch more normal today. The urinalysis and throat physician has increased the pantoprazole and he is doing well. Problem Osteoarthritis of knee (697068172) Osteoarthritis of knees, bilateral (M17.0) Active confirmed There was mild crepitus of his knees. He has occasional knee pain but is able to conduct all of the activities of daily life. 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 Problem 997205056 Chronic GERD (K21.9) Active confirmed His chronic ref lux symptoms are well controlled with nvyv-spq-yvjhfho medication. Problem 66200081 Peripheral polyneuropathy (G62.9) Active confirmed Vital Signs Heart Rate 71 /min 09/28/2024 Temperature 97.2 degrees Fahrenheit 09/28/2024 Blood pressure diastolic 58 mm Hg 09/28/2024 Height 76 in 09/28/2024 Blood pressure systolic 96 mm Hg 09/28/2024 Weight 215 lbs 09/28/2024 BMI 26.17 kg/m2 09/28/2024 Encounters Encounter Location Date Provider Diagnosis Tony Greenwood III, MD [address] [place] [address] [place] [phone] 12/27/2023 Tony Greenwood Hyperlipidemia E78.5 ; Overweight E66.3 ; BPH (benign prostatic hyperplasia) N40.0 ; Essential hypertension I10 ; 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 ; Peripheral vascular disease I73.9 ; Ascending aortic aneurysm I71.2 ; Depression F32.9 ; Chronic GERD K21.9 ; Osteoarthritis of knees, bilateral M17.0 and Former smoker Z87.891 Tony Greenwood III, MD [address] [place] [address] DR [place], [place] [address] 09/28/2024 Tony Greenwood Coronary artery dise ase [...] 12 pounds since his last visit. 09/28/2024 Hyperlipidemia (ICD-10 - E78.5) His lipids have been well controlled. A fasting lipid profile was ordered prior to his next visit. No change in his medications was made. 09/28/2024 Coronary artery disease (ICD-10 - I25.10) He has had no angina or diaphoresis or palpitations since his last visit. His coronary artery disease is stable. He is compliant with all his medications. His lipid profile is in its target range. He was seen by cardiology, November 19, 2022 and thought to be stable. 12/27/2023 BPH (benign prostati c hyperplasia) (ICD-10 - N40.0) He rises from sleep once a night to urinate. No change in his medications was needed. 09/28/2024 Essential hypertension (ICD-10 - I10) His blood pressure today is 99/69. No change in his regimen as needed. 12/27/2023 Essential hypertension (ICD-10 - I10) His blood pressure today is 99/69. No change in his regimen as needed. 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 He is considering it. His claudication is mild. We discussed this at length today but no conclusion was reached. 09/28/2024 Iliac artery aneurys m (ICD-10 - I72.3) He has a small right-sided iliac artery aneurysm which is being observed. It is asymptomatic. 12/27/2023 Peripheral vascular disease (ICD-10 - I73.9) He has iliac artery and popliteal artery aneurysm, some of which have been repaired. He has claudication but is able to conduct all of the activities of daily living. His vascular surgeon has recommended correction of the remaining popliteal artery. The patient is not certain he wants to undergo that surgery at this time. 09/28/2024 Peripheral vascular disease (ICD-10 - I73.9) [...] had no chest pain or dyspnea. 09/28/2024 History of skin cancer (ICD-10 - Z85.828) No new skin lesions were noted on today's examination. Surveillance will continue. 12/27/2023 Depression (ICD-10 - F32.9) His depression is slightly worse after the surgery. He requested that I increase the bupropion to 450 mg a day. I have done so. This is a dose. He has taken successfully in the past. 09/28/2024 Overweight (ICD-10 - E66.3) His body mass index is 26. We discussed diet and nutrition. We made a plan to lose weight at a rate of one half of a pound per week.He has lost 12 pounds since his last visit. 12/27/2023 Chronic GERD (ICD-10 - K21.9) His chronic reflux symptoms are well controlled with [id number]-equocdk medication. 09/28/2024 BPH (benign prostati c hyperplasia) (ICD-10 - N40.0) He rises from sleep once a night to urinate. No change in his medications was needed. 12/27/2023 Osteoarthritis of knees, bilateral (ICD-10 - M17.0) There was mild crepitus of his knees. He has occasional knee pain but is able to conduct all of the activities of daily life. 09/28/2024 Chronic GERD (ICD-10 - K21.9) His chronic reflux symptoms are well controlled with lumz-yga-qeckkzi medication. 12/27/2023 Former smoker (ICD-1 0 - Z87.891) He is highly motivated not to smoke. He has a strategy for prevention of relapse and maintenance of abstinence. 09/28/2024 Ascending aortic aneurysm (ICD-10 - I71.2) [...] and maintenance of abstinence. Plan Of Treatment Pending Test Test Name Order Date PROFILE, FASTING (COMPREHENSIVE METABOLI C) 12/18/2022 PROFILE, FASTING (COMPREHENSIVE METABOLI C) 03/28/2021 PROFILE, FASTING (COMPREHENSIVE METABOLI C) 05/18/2020 PROFILE, FASTING (COMPREHENSIVE METABOLI C) 06/28/2017 PROFILE, FASTING (COMPREHENSIVE METABOLI C) 09/28/2024 PROFILE, FASTING (COMPREHENSIVE METABOLI C) 10/05/2022 PROFILE, FASTING (COMPREHENSIVE METABOLI C) 12/27/2023 PROFILE, FASTING (COMPREHENSIVE METABOLI C) 03/04/2020 PROFILE, FASTING (COMPREHENSIVE METABOLI C) 09/26/2020 PROFILE, FASTING (COMPREHENSIVE METABOLI C) 09/20/2023 PROFILE, FASTING (COMPREHENSIVE METABOLI C) 05/21/2022 PROFILE, RANDOM (COMPREHENSIVE METABOLIC ) 08/10/2022 PROFILE, RANDOM (COMPREHENSIVE METABOLIC ) 08/19/2019 HEMOGLOBIN A1C (GLYCOHEMOGLOBIN) 021 LIPID PANEL 05/21/2022 LIPID PANEL 12/18/2022 LIPID PANEL 05/18/2020 LIPID PANEL 06/28/2017 LIPID PANEL 10/05/2022 LIPID PANEL 03/04/2020 LIPID PANEL 09/26/2020 LIPID PANEL 08/10/2022 LIPID PANEL 08/19/2019 PSA, TOTAL 08/10/2022 PSA, TOTAL 08/19/2019 PSA, TOTAL 03/28/2021 PSA, TOTAL 05/21/2022 PSA, TOTAL 12/18/2022 PSA, TOTAL 09/28/2024 PSA, TOTAL 05/18/2020 PSA, TOTAL 12/27/2023 PSA, TOTAL 09/20/2023 PSA, TOTAL 09/26/2020 CBC w DIFF 09/26/2020 CBC w DIFF 08/10/2022 CBC w DIFF 08/19/2019 CBC w DIFF 03/28/2021 CBC w DIFF 05/21/2022 CBC w DIFF 12/18/2022 CBC w DIFF 06/28/2017 CBC w DIFF 09/28/2024 CBC w DIFF 05/18/2020 CBC w DIFF 10/05/2022 CBC w DIFF 03/04/2020 MRI BRAIN NO CONTRAST 10/30/2016 Echocardiogram 08/28/2021 PFT with DLCO 07/09/2017 CBC WITH AUTO DIFF 09/20/2023 CBC WITH AUTO DIFF 12/27/2023 SARS COV2 RNA RT PCR 04/11/2020 Lipid Panel 12/27/2023 Lipid Panel 09/20/2023 Lipid Panel 09/28/2024 INR WHOLE BLOOD POC 03/28/2021 CT head/brain w con 09/28/2020 CT head/brain wo/w con 10/07/2020 Next Appt Details Provider Name:Tony Greenwood, 02/02/2025 03:00:00 PM, [address] [facility] [address], [place], [phone], Provider Name:Tony Greenwood, 09/29/2025 03:00:00 PM, [address] [facility] [address], [place], [address], Insurance Providers Payer Name Payer Address Payer Phone Subscriber Number Group Number Insured Name Patient Relationship to Insured Coverage Start Date Coverage End Date [employer] Medicare [address] [place] [phone] [id number] Efrain Pedro Self - patient is the insured 2 [employer] [address] [place] [address] [id number] Efrain Pedro Self - patient is the insured Medical (General) History Medical History History ICD Code left popliteal artery aneurysm, repaired depression hyperlipidemia CAD- 1998 non-eluting stent RCA, [place] caracts scc right eyelid and forehead former smoker fractured metatarsal right-sided aortic arch 4.5 cm ascending aortic aneurysm diastasis rectus Surgical History Surgery Date(Month/Year) Right popliteal aneurism stent 06/2024 Right hip surgery 12/2022 left cheek lesion removal [place] [facility] 2021 repair popliteal aneurysm 01/2004 colonoscopy,negative 09/2009 Hospitalization History Reason Date(Month/Year) stent placement 2017
== END 2024-11-16 12:18 | disposition home or self-care (01) ==
LOC: HO.HSMS 10:50
PROVIDERS: PCP Internal Medicine Medical Oncology; Visit Provider Psychiatry & Neurology Neurology
DX: R41.89 Other symptoms and signs involving cognitive functions and awareness (principal)
CPT/HCPCS: 99204

== ENCOUNTER → 2024-11-16 10:50 | Outpatient (BNVA) | payer MEDICARE, OTHER, SELFPAY | PROVIDERS: PCP Internal Medicine Medical Oncology; Visit Provider Psychiatry & Neurology Neurology | DX: R41.89 Other symptoms and signs involving cognitive functions and awareness (principal) | CPT/HCPCS: 99202 ==

== ENCOUNTER 2024-11-17 12:02 | Outpatient (REF) | payer MEDICARE, OTHER, SELFPAY ==
[2024-11-17 13:13] LABS: TSH reflex Free T4 1.06 uIU/mL (0.32-4.0)
[2024-11-17 13:31] LABS: Folate > 20.0 ng/mL (> or = 4.0); Vitamin B12 998 pg/mL (200-900)
--- OUTSIDE RECORDS SUMMARY | 2024-11-17 13:34 | XMS_ITS ---
Author Organization Tony Gerenwood III, MD Address [address] [place] [address] DR BENZ [place] [address] Care Team Providers Care Wire Tinner Name Role Phone Tony Greenwood Primary Care Provider [phone] Allergies Allergen (clinical drug ingredient) Drug/Non Drug [...] External Active Ketoconazole 2 % 1 application Adult Day Care Worker ally Once a day 03/15/2023 Active Doxycycline [...] C Active Vitamin D Active Zinc Skyler-Benzyl Tov-Zbgiu-Wcq Active Antioxidant Active CoQ-10 Active Social History [...] Provider Diagnosis Tony Greenwood III, MD [address] [place] [address] [place] [address] 12/27/2023 Tony Greenwood Hyperlipidemia E78.5 ; Overweight [...] chronic reflux symptoms are well controlled with ctne-cmc-dphgfsy medication. 12/27/2023 Osteoarthritis of knees, bilateral (ICD-10 [...] % External Ketoconazole 2 % 1 application Adult Day Care Worker ally Once a day 03/15/2023 Doxycycline Hyclate [...] day Vitamin C Vitamin D Zinc Skyler-Benzyl Zqx-Vjwmw-Mob Antioxidant CoQ-10 Pending Test Test Name Order Date PROFILE, FASTING (COMPREHENSIVE METABOLI C) 12/27/2023 PSA, TOTAL 12/27/2023 CBC WITH AUTO DIFF 12/27/2023 Lipid Panel 12/27/2023 Referrals Referral Date Details 12/27/2023 12/27/2023, Transfer of Care Consult and Treat, (Jad) Luther Whitmore Next Appt Details Follow Up: As Scheduled , Re ason: OV, Annual Exam Provider Name:Tony Greenwood, 02/02/2025 03:00:00 PM, [address] [place] [address] [address], [place], [phone], Provider Name:Tony Greenwood, 09/29/2025 03:00:00 PM, [address] [place] [address] [address], [place], [phone], Progress Notes * Efrain PEDRO IIDOB: (83 yo M)Acc No.[id number]:12/27/2023 Progress Notes Patient:?PedroEfrain valentine Provider:?Tony Greenwood MD :1940???Age:83 Y???Sex:Male Nuno e:12/27/2023 Address:[address] [place] [address], [place] [id number] Subjective: * Chief Complaints: * ???Popliteal artery [...] 09/2009repair popliteal aneurysm 01/2004left cheek lesion removal [place] [facility] ight hip surgery 12/2022 * Hospitalization/Major [...] smoker ???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 He was born [facility]. He is now working at the [employer]. * Medications:?TakingVitamin C Vitamin D Zinc Skyler-Benzyl Dyf-Jxhgq-Ivx Antioxidant CoQ-10 Doxycycline Hyclate 100 MG Capsule [...] C Taking Vitamin D Taking Zinc Skyler-Benzyl Sak-Rkmyi-Tvj Taking Antioxidant Taking CoQ-10 Taking Doxycycline Hyclate [...] chronic reflux symptoms are well controlled with ocre-zxu-yuqosgi medication.?10.?Osteoarthritis of knees, bilateral - M17.0, There [...] urged to quit.?12/27/2023 * Follow Up:?As Scheduled (Elliott son: OV, Annual Exam) * Images: * Sign off status: Completed true * Provider:?Tony rGeenwood MD Date:?12/13 Generated for Printlouise buckley/Jose/eTransmitting on:?11/17/2024 01:34 PM EDT History and Physical Notes * HPI (History of Present Illness) Category Sub-Category Detail Notes COVID-19 Screening Questions Have you had any new onset fever, chills, cough, congestion, sore throat, shortness of breath, muscle aches?: No Have you been exposed to the virus withi n the last 10 days?: No Have you travelled internationally in [facility] last 10 days?: No Have you been [...] Not leandra 12/27/2023 Tony Greenwood [place] , ([place]) Transfer of Care Consult and Treat
--- OUTSIDE RECORDS SUMMARY | 2024-11-17 13:34 | XMS_ITS | Encounter Summary ---
Author Organization [facility] Address [address] [place] [address] Care Team Providers Care Food Science Professor Name Role Phone Tony Greenwood MD Primary Care Provider Joanna gomes Encounter Details Date Type Department Care Team Description 09/17/2017 Transfer Records Medical Records [address] [place] [id number] Abstract, Provider Social History Tobacco Use Types Packs/Day Years Used Date Smoking Tobacco: Former Cigarettes 1 28 0 09/16/1977 - 11/16/2014 Smokeless Tobacco: Never Sex Assigned at Date Recorded Not on file documented as of this encounter Plan of Treatment Not on file documented as of this encounter Visit Diagnoses Not on filedocumented in this encounter Care Teams Food Science Professor Relationship Specialty Start Date End Date Tony Greenwood MD PCP - General Oncology/Hematology 09/09/17 documented as of this encounter
--- OUTSIDE RECORDS SUMMARY | 2024-11-17 13:35 | XMS_ITS ---
Author Organization Tony Greenwood III, MD Address [address] [place] [address] [address] BENZ [place] [address] Care Team Providers Care Account Support Associate Name Role Phone Tony Greenwood Primary Care Provider [phone] Allergies Allergen (clinical drug ingredient) Drug/Non Drug [...] referral and would like it faxed to [phone] Referral Priority Routine Reason leg weakness gait training muscle strengthening Diagnosis 1 Peripheral polyneuro alexis (G62.9) Diagnosis 2 Weakness of lower ex tremity, unspecified laterality (R29.898) Referral Organization Tony Greenwood III, MD Referring Provider First Name Tony Referring Provider Last Name Krystyna Referring Provider Speciality Internal M edicine Referred Provider [facility] Physical Therapy Janusz Referred Provider Specialty Physical The rapist General Notes Jennifer Rachel SOFTWARE SUPPORT SPECIALIST 09/28 11:27:33 AM > ref/demo/progress note faxed to [facility] PT dept Referral Priority Routine Referral [...] External Active Ketoconazole 2 % 1 application Is Analyst ally Once a day 03/15/2023 Active CeleBREX [...] DAYS Active Vitamin D Active Zinc Skyler-Benzyl Dak-Vxuwa-Oyh Active Pantoprazole Sodium 40 MG TAKE 1 [...] Date Provider Diagnosis Tony Greenwood III, MD [address] [place] [address] [address] [place], [place] [phone] 09/28/2024 Tony Greenwood Coronary artery dise ase [...] chronic reflux symptoms are well controlled with lnhw-jjr-pmbgzmg medication. 09/28/2024 Ascending aortic aneurysm (ICD-10 - [...] % External Ketoconazole 2 % 1 application Is Analyst ally Once a day 03/15/2023 CeleBREX 100 [...] FOR 90 DAYS Vitamin D Zinc Skyler-Benzyl Fgt-Pedfp-Oet Pantoprazole Sodium 40 MG TAKE 1 TABLET [...] leg weak ness gait training muscle strengthening, [facility] Physical Therapy Next Appt Details Follow Up: 4 Months, Reason: ov review labs Provider Name:Tony Greenwood, 02/02/2025 03:00:00 PM, [address] [place] [address] [address], [place], [phone], Provider Name:Tony Greenwood, 09/29/2025 03:00:00 PM, [address] [place] [address] [address], [place], [phone], Progress Notes * Efrain PEDRO IIDOB: (84 yo M)Acc No.[id number]:09/28/2024 Progress Notes Patient:?Efrain PEDRO II Provider:?Tony Greenwood MD :1940???Age:84 Y???Sex:Male Nuno e:09/28/2024 Address:[address] [place] [address], [place] [id number] Subjective: * Chief Complaints: * ???Annual Exam [...] ?Interpretation?Negative ???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 He was born [facility]. He is now working at the [employer]. * Medications:?TakingbuPROPion HCl ER (XL) 150 MG [...] DAYS Vitamin C Vitamin D Zinc Skyler-Benzyl Igo-Szqhj-Vrx Antioxidant CoQ-10 Gabapentin 100 MG Capsule 2 [...] C Taking Vitamin D Taking Zinc Skyler-Benzyl Vqc-Nyqzz-Olh Taking Antioxidant Taking CoQ-10 Taking Gabapentin 100 [...] chronic reflux symptoms are well controlled with duin-hdu-orqfsea medication.???11.?Ascending aortic aneurysm - I71.2???Notes :He has [...] DAYS;?Continue Vitamin C;?Continue Vitamin D;?Continue Zinc Skyler-Benzyl Sqn-Blmrs-Kpa;?Continue Antioxidant;?Continue CoQ-10;?Continue Gabapentin Capsule, 100 MG, 2 [...] * ?BLD Negative Negative - * Procedure Codes:?25394 URINE -NO MICRO * Preventive Medicine:? ??Counseling:?Care [...] Greenwood MD Date:?09/12 Generated for Oralia buckley/Jose/Lilly on:?11/17/2024 01:34 PM EDT History and Physical [...]
--- OUTSIDE RECORDS SUMMARY | 2024-11-17 13:35 | XMS_ITS ---
Author Organization Tony Greenwood III, MD Address [address] [place] [address] [address]EN[address] [place] [address] Care Team Providers Care School Coordinator Name Role Phone Tony Greenwood Primary Care [...] lly Once a day Active Zinc Skyler-Benzyl Hsw-Gpehb-Jzr Active Antioxidant Active Vitamin D Active Vitamin C Active Pantoprazole Sodium 40 MG TAKE 1 TABLET BY MOUTH EVERY DAY FOR 90 DAYS Active Ketoconazole 2 % 1 application Computer Trainer ally Once a day 03/15/2023 Active buPROPion [...] Provider Diagnosis Tony Greenwood III, MD [address] [facility] [place] [address] 03/20/2024 Tony Greenwood Hyperlipidemia E78.5 Assessments Encounter [...] capsule Orally Once a day Zinc Skyler-Benzyl Keu-Qljob-Yka Antioxidant Vitamin D Vitamin C Pantoprazole Sodium 40 MG TAKE 1 TABLET BY MOUTH EVERY DAY FOR 90 DAYS Ketoconazole 2 % 1 application Computer Trainer ally Once a day 03/15/2023 buPROPion HCl [...] Provider Name:Tony Greenwood, 02/02/2025 03:00:00 PM, [address] [facility] [address], [place], [phone], Provider Name:Tony Greenwood, 09/29/2025 03:00:00 PM, [address] [facility] [address], [place], [phone], Progress Notes * Efrain PEDRO IIDOB: (84 yo M)Acc No.[id number]:03/20/2024 Progress Notes Patient:?Efrain PEDRO II Provider:?Tony Greenwood MD :1940???Age:84 Y???Sex:Male Nuno e:03/20/2024 Address:[address] [place] [address], [id number] Subjective: * Chief Complaints: * ???1. Annual [...] Depression, Hyperlipidemia, CAD- 1997 non-eluting stent RCA, [place], Caracts, Scc right eyelid and forehead, Former smoker, Fractured metatarsal, Right-sided aortic arch, 4.5 cm ascending aortic aneurysm, Diastasis rectus. * Surgical History:?colonoscop y,negative 09/2009, repair popliteal aneurysm 01/2004, left cheek lesion removal [place] [facility] 2021, Right hip surgery 12/2022. 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 He was born [facility]. He is now working at the [employer]. * Medications:?Taking Vitamin C , Taking Vitamin D , Taking Zinc Skyler-Benzyl Mcj-Olaec-Xmo , Taking Antioxidant , Taking CoQ-10 , [...] Greenwood MD Date:?12/2023 Generated for Oralia buckley/Jose/Joeitting on:?11/17/2024 01:34 PM EDT History and Physical [...]
--- OUTSIDE RECORDS SUMMARY | 2024-11-17 13:35 | XMS_ITS | Clinical Summary ---
Author Organization [employer] [facility] Address [address] [place] [address] [address] [place] [address] Care Team Providers Care Size Tester Name Role Phone Unavailable Primary Care Provider [...] this topic Insurance DENTAL - [employer] DENTAL [facility] [place] [address] DENTAL - AETNA DENTAL [place]
--- OUTSIDE RECORDS SUMMARY | 2024-11-17 13:35 | XMS_ITS | Encounter Summary ---
Author Organization [employer] [facility] Address [address] [facility] [address] [place] [address] Care Team Providers Care Prescription Clerk Lenses Name Role Phone Unavailable Primary Care Provider [...]
--- OUTSIDE RECORDS SUMMARY | 2024-11-17 13:35 | XMS_ITS | Patient Health Record ---
Author Organization Tony Greenwood III, MD Address [address] [place] [address] DR BENZ Alexander [place] [address] Care Team Providers Care Senior Product Consultant Name Role Phone Tony Greenwood Primary Care Provider [phone] Allergies Allergen (clinical drug ingredient) Drug/Non Drug [...] date:09/28/2024 03:10:03 PM Interpretation: Performing Lab: Notes/Report: [address] [address] [address] Scan Report Signed Patient: Efrain Pedro MR#: [id number] : 1940 Acct:[id number] Age/Sex: 84 / M ADM Date: 06/04/24 Loc: HO.CT Attending Dr: Valdo Haley MD Ordering Physician: Valdo Haley MD Date of Service: 06/04/24 Procedure(s): CT chest wo IV con Accession Number(s): [id number] cc: Tony Greenwood MD; Valdo Haley MD Report Number: [id number]: Total DLP = 214.00 mGy-cm EXAMINATION: CT [...] Exam submitted for review 08/04/2024 3:07 PM WASH DRILLER. FINDINGS: PULMONARY NODULES: -There are a few [...] by: Tony Lopez MD 08/04/2024 04:22 PM [facility] Dictated By: Tony Lopez MD Signed By: <Electronically signed by Tony Lopez MD in OV> 08/04/24 1622 DD/ 0736 TD/TT: 06/04/24 0742 Hot Molder: [place] [address] [address] Scan Report Signed Patient: Efrain Pedro MR#: [id number] : 1940 Acct:[id number] Age/Sex: 84 / M ADM Date: 06/04/24 Loc: .CT Attending Dr: Valdo Haley MD Ordering Physician: Valdo Haley MD Date of Service: 06/04/24 Procedure(s): CT [address] st wo IV con Accession Number(s): [id number] cc: Tony Greenwood MD; Valdo Haley MD Report Number: [id number]: Total DLP = 214.00 mGy-cm EXAMINATION: CT [...] Exam submitted for review 08/04/2024 3:07 PM WASH DRILLER. FINDINGS: PULMONARY NODULES: -There are a few [...] by: Tony Lopez MD 08/04/2024 04:22 PM [facility] Dictated By: Tony Lopez MD Signed By: <Electronically signed by Tony Lopez MD in OV> 08/04/24 1622 DD/ 0736 TD/TT: 06/04/24 0742 Hot Molder: Complete Blood Count Auto Di ff Reviewed date:09/28/2024 03:10:03 PM Interpretation: Performing Lab:[facility], [address] [place] [phone] Notes/Report: White Blood Count 7.4 4.8-10.8 X10*3/uL [...] 0.0-0.2 /100WBC Neutrophils Absolute Auto 4.3 2.0-8.3 x10*3/uL Imm Gran Abs Auto 0.03 0.00-0.03 X10*3/uL Lymphocytes Absolute Auto 2.0 1.2-4.9 X10*3/uL Monocytes Absolute Auto 0.8 0.1-1.2 X10*3/uL Eosinophils Absolute Auto 0.3 0.0-0.4 X10*3/uL Basophils Absolute Auto 0.0 0.0-0.2 X10*3/uL NRBC Abs Auto 0.000 0.0-0.012 X10*3/uL Comprehensive Franklin. Panel Fa Reviewed date:09/28/2024 03:10:03 PM Interpretation: Performing Lab:[facility], [address] [place] [phone] Notes/Report: Sodium 146 135-145 mmol/L Potassium 5.0 [...] Panel Reviewed date:09/28/2024 03:10:03 PM Interpretation: Performing Lab:[facility], [address] [place] [phone] Notes/Report: Triglycerides 233 <150 mg/dL Desirable Triglyceride: [...] Antigen Reviewed date:09/28/2024 03:10:03 PM Interpretation: Performing Lab:[address] [address] Notes/Report: Prostate Specific Antigen 1.47 <0.05-4.0 ng/mL PSA methodology: Puente Alinity i Chemiluminescent Microparticle Immunoassay (CMIA) Vitamin B12 and Folate (Not yet reviewed by provider) Interpretation: Performing Lab:[address] [address] Notes/Report: Vitamin B12 998 200-900 pg/mL NORMAL 200-900 PG/ML INDETERMINATE 160-199 PG/ML DEFICIENT < 160 PG/ML Folate > 20.0 > or = 4.0 ng/mL Reference Values: > or = 4.0 ng/mL < 4.0 ng/mL suggests folate deficiency Methotrexate, aminopterin and folinic acid (leucovorin) are chemotherapeutic agents whose molecular structures are similar to folate; therefore, the Motor Polarizer folate assay cannot be used for patients using these drugs. TSH reflex Free T4 (Not yet reviewed by provider) Interpretation: Performing Lab:[address] [address] Notes/Report: TSH reflex Free T4 1.06 0.32-4.0 uIU/mL Reason For Referral Reason Transfer of Care [...] Sleep Medici ne General Notes Rachel Rodriguez JACQUIE 09/30 10:14:05 AM > Ref/demo/progress note/labs faxed to [facility] 11/04/2024 01:58:24 PM > Spoke Wanda at Sleep Medicine regarding referral for patient. Patient had called and left a message to see if they have received the referral. They did not receive the referral and would like it faxed to [phone] Referral Priority Routine Reason leg weakness gait training muscle strengthening Diagnosis 1 Peripheral polyneuro alexis (G62.9) Diagnosis 2 Weakness of lower ex tremity, unspecified laterality (R29.898) Referral Organization Tony Greenwood III, MD Referring Provider First Name Tony Referring Provider Last Name Krystyna Referring Provider Speciality Internal M edicine Referred Provider [facility] Physical Therapy Janusz Referred Provider Specialty Physical The rapist General Notes Jennifer Rachel CMA 09/28 11:27:33 AM > ref/demo/progress note faxed to [facility] PT dept Referral Priority Routine Referral Appointment Date 10/13/2024 Medications Medication SIG (Take, Route, Frequency, Duration) Notes Start Date End Date Status Finasteride 5 MG TAKE 1 TABLET BY DIAMOND TH EVERY DAY FOR 30 DAYS for 90 Active Vitamin D Active Zinc Skyler-Benzyl Yll-Vmliq-Aap Active Pantoprazole Sodium 40 MG TAKE 1 [...] External Active Ketoconazole 2 % 1 application Button Reclaimer ally Once a day 03/15/2023 Active Immunizations [...] Administered Fluzone High-Dose (HD-IIV3) Unknown 04/10/2017 Administ ered COVID PFIZER Unknown 07/27/2020 Administered Flu-IIv4 Unknown 04/18/2016 Administered Flu-IIv3 Unknown 04/14/2019 Administered COVID-19 Moderna SPIKEVAX Unknown 10/10/2023 Administer ed PPV 23 Unknown 11/13/2021 Administered COVID PFIZER Unknown 10/23/2021 Administered Flu-IIv3 Unknown 03/24/2018 Administered Fluzone High-Dose (HD-IIV3) Unknown 03/30/2024 Administ ered Tdap Unknown 09/09/2024 Administered PCV20 Unknown 10/10/2023 [...] Problem Status W/U Status Risk Notes Problem 4065669 Former smoker (Z87.891) Active confirmed He is highly motivated not to smoke. He has a strategy for prevention of relapse and maintenance of abstinence. Problem 11277536 Hyperlipidemia (E78.5) Active confirmed His lipids have been well controlled. A fasting lipid profile was ordered prior to his next visit. No change in his medications was made. Problem 516524795 Overweight (E66.3) Active confirmed His body mass index is 26. We discussed diet and nutrition. We made a plan to lose weight at a rate of one half of a pound per week.He has lost 12 pounds since his last visit. Problem 82889032 Depression (F32.9) Active confirmed His depression is slightly worse after the surgery. He requested that I increase the bupropion to 450 mg a day. I have done so. This is a dose. He has taken successfully in the past. Problem 98615715 Simple chronic bronchitis (J41.0) Active confirmed Problem Osteoarthritis of hip (931612177) Osteoarthritis of hip, unspecified (M16.9) Active confirmed He occasionally has pain in his right hip that requires him to stop and rest frequently. He is scheduled for surgery to replace the right hip joint on January 08, [address] Rahman at [facility]. His blood work is adequate. His electrocardiogram is unremarkable. He has had clearance from pulmonary and cardiology. He is given general medical clearance for the procedure. His risk is greater than average because of his multiple comorbidities and coronary artery disease but is acceptable. He is granted, medical clearance. Problem 78448326 Coronary artery disease (I25.10) Active confirmed He has had no angina or diaphoresis or palpitations since his last visit. His coronary artery disease is stable. He is compliant with all his medications. His lipid profile is in its target range. He was seen by cardiology, November 19, 2022 and thought to be stable. Problem 043478630 BPH (benign prostatic hyperplasia) (N40.0) Active confirmed He rises from sleep once a night to urinate. No change in his medications was needed. Problem 36270103 Essential hypertension (I10) Active confirmed His blood press ure today is 99/69. No change in his regimen as needed. Problem 904217258 Peripheral vascular disease (I73.9) Active confirmed He has iliac artery and popliteal artery aneurysm, some of which have been repaired. He has claudication but is able to conduct all of the activities of daily living. His vascular surgeon has recommended correction of the remaining popliteal artery. The patient is not certain he wants to undergo that surgery at this time. Problem 406997147 Erectile dysfunction (N52.9) Active confirmed His current medications are effective. Problem 03971704 Memory loss (R41.3) Active confirmed He is mildly forgetful but is aware of it. It is likely vascular in origin. He remains able to care for himself at home living with his . He remains mentally competent to make decisions. Problem 91019624 Obstructive sleep apnea (G47.33) Active confirmed He continues to use his CPAP machine with good effect. He denies any recent daytime somnolence. Problem 937316570 Ascending aortic aneurysm (I71.2) Active confirmed He has a CT sca n of the chest and a consultation with a cardiac surgeon regularly at scheduled intervals. He has had no chest pain or dyspnea. 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 It is asymptomatic. Problem 209653709 History of skin cancer (Z85.828) Active confirmed No new skin lesions were noted on today's examination. Surveillance will continue. Problem 49226137 Hoarseness (R49.0) Active confirmed His voice was m uch more normal today. The urinalysis and throat physician has increased the pantoprazole and he is doing well. Problem Osteoarthritis of knees, bilateral (M17.0) Active confirmed There was mild crepitus of his knees. He has occasional knee pain but is able to conduct all of the activities of daily life. 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 Problem 876570611 Chronic GERD (K21.9) Active confirmed His chronic ref lux symptoms are well controlled with jmcn-dys-mjmrpoh medication. Problem 45131501 Peripheral polyneuropathy (G62.9) Active confirmed Vital Signs Heart Rate 71 /min 09/28/2024 Temperature 97.2 degrees Fahrenheit 09/28/2024 Blood pressure diastolic 58 mm Hg 09/28/2024 Height 76 in 09/28/2024 Blood pressure systolic 96 mm Hg 09/28/2024 Weight 215 lbs 09/28/2024 BMI 26.17 kg/m2 09/28/2024 Encounters Encounter Location Date Provider Diagnosis Tony Greenwood III, MD [address] [place] [address] [place] [address] 12/27/2023 Tony Greenwood Hyperlipidemia E78.5 ; Overweight E66.3 ; BPH (benign prostatic hyperplasia) N40.0 ; Essential hypertension I10 ; 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 ; Peripheral vascular disease I73.9 ; Ascending aortic aneurysm I71.2 ; Depression F32.9 ; Chronic GERD K21.9 ; Osteoarthritis of knees, bilateral M17.0 and Former smoker Z87.891 Tony Greenwood III, MD [address] [place] [address] [place] [address] 09/28/2024 Tony Greenwood Coronary artery dise ase [...] chronic reflux symptoms are well controlled with flsp-gfu-wqkgmqq medication. 09/28/2024 BPH (benign prostati c hyperplasia) [...] chronic reflux symptoms are well controlled with wjpc-kde-iyjkujh medication. 12/27/2023 Former smoker (ICD-1 0 - [...] 12/27/2023 Lipid Panel 09/20/2023 Lipid Panel 09/28/2024 Vitamin B12 and Folate 11/17/2024 TSH reflex Free T4 11/17/2024 INR WHOLE BLOOD POC 03/28/2021 CT head/brain w con 09/28/2020 CT head/brain wo/w con 10/07/2020 Next Appt Details Provider Name:Tony Greenwood, 02/02/2025 03:00:00 PM, [address] [place] [address] [address], [place], [phone], Provider Name:Tony Greenwood, 09/29/2025 03:00:00 PM, [address] [place] [address] [address], [place], [address], Insurance Providers Payer Name Payer Address Payer Phone Subscriber Number Group Number Insured Name Patient Relationship to Insured Coverage Start Date Coverage End Date [employer] Medicare [address] [place] [facility] [place] [phone] [id number] Efrain Pedro Self - patient is the insured 2 [employer] LIFE [address] [place] [phone] [id number] Efrain Pedro Self - patient is the insured Medical (General) History Medical History History ICD Code left popliteal artery aneurysm, repaired depression hyperlipidemia CAD- 1998 non-eluting stent RCA, SD caracts scc right eyelid and forehead former smoker fractured metatarsal right-sided aortic arch 4.5 cm ascending aortic aneurysm diastasis rectus Surgical History Surgery Date(Month/Year) Right popliteal aneurism stent 06/2024 Right hip surgery 12/2022 left cheek lesion removal [facility] 2021 repair popliteal aneurysm 01/2004 colonoscopy,negative 09/2009 Hospitalization History Reason Date(Month/Year) stent placement 2017
== END 2024-11-17 12:03 | disposition home or self-care (01) ==
LOC: HO.LAB 12:02
PROVIDERS: PCP Internal Medicine Medical Oncology; Visit Provider Psychiatry & Neurology Neurology
DX: R41.89 Other symptoms and signs involving cognitive functions and awareness (principal)
CPT/HCPCS: 36415; 82607; 82746; 84443

== ENCOUNTER 2024-11-20 07:17 | Outpatient (REF) | payer MEDICARE, OTHER, SELFPAY ==
--- NOTE | ~2024-11-20 | MR_ITS ---
EXAMINATION: MR BRAIN WITHOUT CONTRAST CLINICAL INFORMATION: Other symptoms and signs involving cognitive functions and awareness. COMPARISON: None available. TECHNIQUE: MRI of the brain was obtained using routine sequences without contrast. FINDINGS: No restricted diffusion. No acute intracranial hemorrhage, mass effect, midline shift, hydrocephalus or herniation. Bilateral, a few scattered, nonspecific subcortical and deep white matter hyperintense T2 FLAIR signal involving centrum semiovale and rose radiata. No signal abnormality or gross volume loss in the hippocampi. Mild prominence of the extra-axial CSF spaces cerebral sulci and ventricles. Sellar/suprasellar region demonstrated no signal abnormality or gross masses. Craniocervical junction demonstrates normal position of the cerebellar tonsils. Flow-void signal within the main cerebral vessels is normal. No abnormal susceptibility signal within the substantia nigra. MR/MR head/brain wo con IMPRESSION: No acute stroke/nonhemorrhagic ischemia. Minimal White matter disease. Consider small vessel occlusive disease. Mild global cerebral atrophy. Electronically signed by: Pritesh Sarmiento MD 11/20/2024 08:27 AM EDT
--- OUTSIDE RECORDS SUMMARY | 2024-11-20 07:18 | XMS_ITS | Encounter Summary ---
Author Organization [facility] Address [address] [place] [address] Care Team Providers Care Heel Slicker Name Role Phone Unavailable Primary Care Provider [...]
--- OUTSIDE RECORDS SUMMARY | 2024-11-20 07:18 | XMS_ITS ---
Author Organization Tony Greenwood III, MD Address [address] [place] [address] DR BENZ Alexander [place] [address] Care Team Providers Care Brake Press Operator Name Role Phone Tony Greenwood Primary Care [...] lly Once a day Active Zinc Skyler-Benzyl Qck-Aozdk-Vbp Active Antioxidant Active Vitamin D Active Vitamin C Active Pantoprazole Sodium 40 MG TAKE 1 TABLET BY MOUTH EVERY DAY FOR 90 DAYS Active Ketoconazole 2 % 1 application Gear Cutting Machine Set Up Operator ally Once a day 03/15/2023 Active buPROPion [...] Provider Diagnosis Tony Greenwood III, MD [address] [place] [address] 03/20/2024 Tony Grenewood Hyperlipidemia E78.5 Assessments Encounter Date Diagnosis (ICD [...] capsule Orally Once a day Zinc Skyler-Benzyl Gnk-Svonp-Dfa Antioxidant Vitamin D Vitamin C Pantoprazole Sodium 40 MG TAKE 1 TABLET BY MOUTH EVERY DAY FOR 90 DAYS Ketoconazole 2 % 1 application Gear Cutting Machine Set Up Operator ally Once a day 03/15/2023 buPROPion HCl [...] Provider Name:Tony Greenwood, 02/02/2025 03:00:00 PM, [address] [facility] [address], [place], [address], Provider Name:Tony Greenwood, 09/29/2025 03:00:00 PM, [address] [facility] DEM[address], [place], [address], Progress Notes * Efrain PEDRO IIDOB: (84 yo M)Acc No.[id number]:03/20/2024 Progress Notes Patient:?Efrain PEDRO II Provider:?Tony Greenwood MD :1940???Age:84 Y???Sex:Male Nuno e:03/20/2024 Address:[address] [place] [address], [place] [id number] Subjective: * Chief Complaints: * ???1. Annual [...] Depression, Hyperlipidemia, CAD- 1997 non-eluting stent RCA, [place], Caracts, Scc right eyelid and forehead, Former smoker, Fractured metatarsal, Right-sided aortic arch, 4.5 cm ascending aortic aneurysm, Diastasis rectus. * Surgical History:?colonoscop y,negative 09/2009, repair popliteal aneurysm 01/2004, left cheek lesion removal [facility] 2021, Right hip surgery 12/2022. 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 He was born [facility]. He is now working at the [employer]. * Medications:?Taking Vitamin C , Taking Vitamin D , Taking Zinc Skyler-Benzyl Zjr-Psvba-Gth , Taking Antioxidant , Taking CoQ-10 , [...] Greenwood MD Date:?12/2023 Generated for Oralia buckley/Jose/Joeitting on:?11/20/2024 07:18 AM EDT History and Physical Notes * [...]
--- OUTSIDE RECORDS SUMMARY | 2024-11-20 07:18 | XMS_ITS ---
Author Organization Tony Greenwood III, MD Address [address] [place] [address] DR BENZ Alexander [place] [address] Care Team Providers Care Size Maker Name Role Phone Tony Greenwood Primary Care [...] Diagnosis 1 Memory loss (R41.3) Referral Organization Toyn Greenwood III, MD Referring Provider First Name [...] referral and would like it faxed to [phone] Referral Priority Routine Reason leg weakness gait training muscle strengthening Diagnosis 1 Peripheral polyneuro alexis (G62.9) Diagnosis 2 Weakness of lower ex tremity, unspecified laterality (R29.898) Referral Organization Tony Greenwood III, MD Referring Provider First Name Tony Referring Provider Last Name Krystyna Referring Provider Speciality Internal M edicine Referred Provider [facility] Physical Therapy Janusz Referred Provider Specialty Physical The rapist General Notes Jennifer Rachel INBOUND SALES ADVISOR 09/28 11:27:33 AM > ref/demo/progress note faxed to [facility] PT dept Referral Priority Routine [...] External Active Ketoconazole 2 % 1 application Desk Clerks Supervisor ally Once a day 03/15/2023 Active CeleBREX [...] DAYS Active Vitamin D Active Zinc Skyler-Benzyl Era-Fwfgo-Qlh Active Pantoprazole Sodium 40 MG TAKE 1 [...] Date Provider Diagnosis Tony Greenwood III, MD [address] [place] [address] DR [place], [place] [address] 09/28/2024 Tony Greenwood Coronary artery dise ase [...] chronic reflux symptoms are well controlled with efsb-tvs-ruwwwnt medication. 09/28/2024 Ascending aortic aneurysm (ICD-10 - [...] % External Ketoconazole 2 % 1 application Desk Clerks Supervisor ally Once a day 03/15/2023 CeleBREX 100 [...] FOR 90 DAYS Vitamin D Zinc Skyler-Benzyl Alw-Oxlvr-Zgh Pantoprazole Sodium 40 MG TAKE 1 TABLET [...] weak ness gait training muscle strengthening, [facility] Physical Therapy Next Appt Details Follow Up: 4 Months, Reason: ov review labs Provider Name:Tony Greenwood, 02/02/2025 03:00:00 PM, [address] [place] [address] [address], [place], [phone], Provider Name:Tony Greenwood, 09/29/2025 03:00:00 PM, [address] [place] [address] [address], [place], [address], Progress Notes * Efrain PEDRO IIDOB: (84 yo M)Acc No.[id number]:09/28/2024 Progress Notes Patient:?Efrain PEDRO II Provider:?Tony Greenwood MD :1940???Age:84 Y???Sex:Male Nuno e:09/28/2024 Address:[address] [place] [address], [place] [id number] Subjective: * Chief Complaints: * ???Annual Exam [...] ?Interpretation?Negative ???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 He was born [facility]. He is now working at the [employer]. * Medications:?TakingbuPROPion HCl ER (XL) 150 [...] DAYS Vitamin C Vitamin D Zinc Skyler-Benzyl Nlb-Xcxny-Ndz Antioxidant CoQ-10 Gabapentin 100 MG Capsule 2 [...] C Taking Vitamin D Taking Zinc Skyler-Benzyl Jpi-Ztptz-Xlq Taking Antioxidant Taking CoQ-10 Taking Gabapentin 100 [...] chronic reflux symptoms are well controlled with gnxt-fcg-wjkifre medication.???11.?Ascending aortic aneurysm - I71.2???Notes :He has [...] DAYS;?Continue Vitamin C;?Continue Vitamin D;?Continue Zinc Skyler-Benzyl Hnp-Xnzyc-Ksp;?Continue Antioxidant;?Continue CoQ-10;?Continue Gabapentin Capsule, 100 MG, 2 [...] * ?BLD Negative Negative - * Procedure Codes:?05982 URINE -NO MICRO * Preventive Medicine:? ??Counseling:?Care [...] Greenwood MD Date:?09/12 Generated for Oralia buckley/Jose/Lilly on:?11/20/2024 07:18 AM EDT History and Physical [...]
--- OUTSIDE RECORDS SUMMARY | 2024-11-20 07:18 | XMS_ITS ---
Author Organization Tony Greenwood III, MD Address [address] [place]ENZ [place] [address] Care Team Providers Care Inner Tube Cutter Name Role Phone Tony Greenwood Primary Care Provider [phone] Allergies Allergen (clinical drug ingredient) Drug/Non Drug [...] External Active Ketoconazole 2 % 1 application Key Account Manager ally Once a day 03/15/2023 Active Doxycycline [...] C Active Vitamin D Active Zinc Skyler-Benzyl Emn-Xnwxb-Xhl Active Antioxidant Active CoQ-10 Active Social History [...] Provider Diagnosis Tony Greenwood III, MD [address] [place] [address] [place] [address] 12/27/2023 Tony Greenwood Hyperlipidemia E78.5 ; Overweight [...] chronic reflux symptoms are well controlled with bnsb-aba-hjozndo medication. 12/27/2023 Osteoarthritis of knees, bilateral (ICD-10 [...] % External Ketoconazole 2 % 1 application Key Account Manager ally Once a day 03/15/2023 Doxycycline Hyclate [...] day Vitamin C Vitamin D Zinc Skyler-Benzyl Ssg-Vounb-Iqr Antioxidant CoQ-10 Pending Test Test Name Order Date PROFILE, FASTING (COMPREHENSIVE METABOLI C) 12/27/2023 PSA, TOTAL 12/27/2023 CBC WITH AUTO DIFF 12/27/2023 Lipid Panel 12/27/2023 Referrals Referral Date Details 12/27/2023 12/27/2023, Transfer of Care Consult and Treat, (Jad) Luther Whitmore Next Appt Details Follow Up: As Scheduled , Re ason: OV, Annual Exam Provider Name:Tony Greenwood, 02/02/2025 03:00:00 PM, [address] [place] [address] [address], [place], [address], Provider Name:Tony Greenwood, 09/29/2025 03:00:00 PM, [address] [place] [address] [address], [place], [address], Progress Notes * Efrain PEDRO IIDOB: (83 yo M)Acc No.[id number]:12/27/2023 Progress Notes Patient:?PedroEfrain valentine Provider:?Tony Greenwood MD :1940???Age:83 Y???Sex:Male Nuno e:12/27/2023 Address:[address] [place] [address], [place] [id number] Subjective: * Chief Complaints: * ???Popliteal artery [...] 09/2009repair popliteal aneurysm 01/2004left cheek lesion removal [facility] ight hip surgery 12/2022 * Hospitalization/Major [...] smoker ???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 He was born [facility]. He is now working at the [employer]. * Medications:?TakingVitamin C Vitamin D Zinc Skyler-Benzyl Wlt-Oehui-Uaa Antioxidant CoQ-10 Doxycycline Hyclate 100 MG Capsule [...] C Taking Vitamin D Taking Zinc Skyler-Benzyl Jcx-Znrvk-Lzr Taking Antioxidant Taking CoQ-10 Taking Doxycycline Hyclate [...] chronic reflux symptoms are well controlled with oqip-ght-evhaneo medication.?10.?Osteoarthritis of knees, bilateral - M17.0, There [...] urged to quit.?12/27/2023 * Follow Up:?As Scheduled (Dickey son: OV, Annual Exam) * Images: * Sign off status: Completed true * Provider:?Tony Greenwood MD Date:?12/13 Generated for Printlouise ng/Bryantg/eTransmitting on:?11/20/2024 07:18 AM EDT History and Physical Notes * HPI (History of Present Illness) Category Sub-Category Detail Notes COVID-19 Screening Questions Have you had any new onset fever, chills, cough, congestion, sore throat, shortness of breath, muscle aches?: No Have you been exposed to the virus withi n the last 10 days?: No Have you travelled internationally in [facility] last 10 days?: No Have you [...] Not leandra 12/27/2023 Tony Greenwood Alexander , ([place]) Transfer of Care Consult and Treat
--- OUTSIDE RECORDS SUMMARY | 2024-11-20 07:19 | XMS_ITS | Patient Health Record ---
Author Organization Tony Greenwood III, MD Address [address] [place] [address] Care Team Providers Care Bullet Maker Name Role Phone Tony Greenwood Primary [...] date:09/28/2024 03:10:03 PM Interpretation: Performing Lab: Notes/Report: [address] [address] [address] Scan Report Signed Patient: Efrain Pedro MR#: [id number] : 1940 Acct:[id number] Age/Sex: 84 / M ADM Date: 06/04/24 Loc: HO.CT Attending Dr: Valdo Haley MD Ordering Physician: Valdo Haley MD Date of Service: 06/04/24 Procedure(s): CT chest wo IV con Accession Number(s): [id number] cc: Tony Greenwood MD; Valdo Haley MD Report Number: [id number]: Total DLP = 214.00 mGy-cm EXAMINATION: CT [...] Exam submitted for review 08/04/2024 3:07 PM COUNTY NURSE. FINDINGS: PULMONARY NODULES: -There are a few [...] by: Tony Lopez MD 08/04/2024 04:22 PM [facility] Dictated By: Tony Lopez MD Signed By: <Electronically signed by Tony Lopez MD in OV> 08/04/24 1622 DD/ 0736 TD/TT: 06/04/24 0742 Mortgage Loan Underwriter: [place] [id number] CT Scan Report Signed Patient: Efrain Pedro MR#: [id number] : 1940 Acct:[id number] Age/Sex: 84 / M ADM Date: 06/04/24 Loc: .CT Attending Dr: Valdo Haley MD Ordering Physician: Valdo Haley MD Date of Service: 06/04/24 Procedure(s): CT [address] st wo IV con Accession Number(s): [id number] cc: Tony Greenwood MD; Valdo Haley MD Report Number: [id number]: Total DLP = 214.00 mGy-cm EXAMINATION: CT [...] Exam submitted for review 08/04/2024 3:07 PM COUNTY NURSE. FINDINGS: PULMONARY NODULES: -There are a few [...] by: Tony Lopez MD 08/04/2024 04:22 PM [facility] Dictated By: Tony Lopez MD Signed By: <Electronically signed by Tony Lopez MD in OV> 08/04/24 1622 DD/ 0736 TD/TT: 06/04/24 0742 Mortgage Loan Underwriter: Complete Blood Count Auto Di ff Reviewed date:09/28/2024 03:10:03 PM Interpretation: Performing Lab:[facility], [address] [place] [phone] Notes/Report: White Blood Count 7.4 4.8-10.8 X10*3/uL [...] NRBC Abs Auto 0.000 0.0-0.012 X10*3/uL Comprehensive [place]. Panel Fa Reviewed date:09/28/2024 03:10:03 PM Interpretation: Performing Lab:[facility], [address] [place] [phone] Notes/Report: Sodium 146 135-145 mmol/L Potassium 5.0 [...] Panel Reviewed date:09/28/2024 03:10:03 PM Interpretation: Performing Lab:[facility], [address] [place] [phone] Notes/Report: Triglycerides 233 <150 mg/dL Desirable Triglyceride: [...] Antigen Reviewed date:09/28/2024 03:10:03 PM Interpretation: Performing Lab:[address] [address] Notes/Report: Prostate Specific Antigen 1.47 <0.05-4.0 ng/mL PSA methodology: Puente Alinity i Chemiluminescent Microparticle Immunoassay (CMIA) Vitamin B12 and Folate (Not yet reviewed by provider) Interpretation: Performing Lab:[address] [address] Notes/Report: Vitamin B12 998 200-900 pg/mL NORMAL 200-900 PG/ML INDETERMINATE 160-199 PG/ML DEFICIENT < 160 PG/ML Folate > 20.0 > or = 4.0 ng/mL Reference Values: > or = 4.0 ng/mL < 4.0 ng/mL suggests folate deficiency Methotrexate, aminopterin and folinic acid (leucovorin) are chemotherapeutic agents whose molecular structures are similar to folate; therefore, the Bike Mechanic folate assay cannot be used for patients using these drugs. TSH reflex Free T4 (Not yet reviewed by provider) Interpretation: Performing Lab:[address] [address] Notes/Report: TSH reflex Free T4 1.06 0.32-4.0 [...] referral and would like it faxed to [phone] Referral Priority Routine Reason leg weakness gait training muscle strengthening Diagnosis 1 Peripheral polyneuro alexis (G62.9) Diagnosis 2 Weakness of lower ex tremity, unspecified laterality (R29.898) Referral Organization Tony Greenwood III, MD Referring Provider First Name Tony Referring Provider Last Name Krystyna Referring Provider Speciality Internal M edicine Referred Provider [facility] Physical Therapy Janusz Referred Provider Specialty Physical The rapist General Notes Jennifer Rachel CMA 09/28 11:27:33 AM > ref/demo/progress note faxed to [facility] PT dept Referral Priority Routine Referral Appointment Date 10/13/2024 Medications Medication SIG (Take, Route, Frequency, Duration) Notes Start Date End Date Status Finasteride 5 MG TAKE 1 TABLET BY DIAMOND TH EVERY DAY FOR 30 DAYS for 90 Active Vitamin D Active Zinc Skyler-Benzyl Gvt-Vlbxn-Ksn Active Pantoprazole Sodium 40 MG TAKE 1 [...] External Active Ketoconazole 2 % 1 application Lug Loader ally Once a day 03/15/2023 Active Immunizations [...] Influenza-iiv4 p-free high dose Unknown 03/18/2021 Administered COVID-19 Moderna SPIKEVAX Unknown 11/16/2024 Administer ed Comirnaty Pfizer COVID-19 12+ Unknown 09/28/2024 Administered Measles Unknown 12/01/2002 History of Immunity [...] Problem Status W/U Status Risk Notes Problem 5042322 Former smoker (Z87.891) Active confirmed He is highly motivated not to smoke. He has a strategy for prevention of relapse and maintenance of abstinence. Problem 15835335 Hyperlipidemia (E78.5) Active confirmed His lipids have been well controlled. A fasting lipid profile was ordered prior to his next visit. No change in his medications was made. Problem 042564751 Overweight (E66.3) Active confirmed His body mass index is 26. We discussed diet and nutrition. We made a plan to lose weight at a rate of one half of a pound per week.He has lost 12 pounds since his last visit. Problem 21729406 Depression (F32.9) Active confirmed His depression is slightly worse after the surgery. He requested that I increase the bupropion to 450 mg a day. I have done so. This is a dose. He has taken successfully in the past. Problem 65221832 Simple chronic bronchitis (J41.0) Active confirmed Problem Osteoarthritis of hip (867143650) Osteoarthritis of hip, unspecified (M16.9) Active confirmed He occasionally has pain in his right hip that requires him to stop and rest frequently. He is scheduled for surgery to replace the right hip joint on January 08, [address] Rahman at [facility]. His blood work is adequate. His electrocardiogram is unremarkable. He has had clearance from pulmonary and cardiology. He is given general medical clearance for the procedure. His risk is greater than average because of his multiple comorbidities and coronary artery disease but is acceptable. He is granted, medical clearance. Problem 08198632 Coronary artery disease (I25.10) Active confirmed He has had no angina or diaphoresis or palpitations since his last visit. His coronary artery disease is stable. He is compliant with all his medications. His lipid profile is in its target range. He was seen by cardiology, November 19, 2022 and thought to be stable. Problem 301305670 BPH (benign prostatic hyperplasia) (N40.0) Active confirmed He rises from sleep once a night to urinate. No change in his medications was needed. Problem 13083077 Essential hypertension (I10) Active confirmed His blood press ure today is 99/69. No change in his regimen as needed. Problem 413184790 Peripheral vascular disease (I73.9) Active confirmed He has iliac artery and popliteal artery aneurysm, some of which have been repaired. He has claudication but is able to conduct all of the activities of daily living. His vascular surgeon has recommended correction of the remaining popliteal artery. The patient is not certain he wants to undergo that surgery at this time. Problem 060864105 Erectile dysfunction (N52.9) Active confirmed His current medications are effective. Problem 00843376 Memory loss (R41.3) Active confirmed He is mildly forgetful but is aware of it. It is likely vascular in origin. He remains able to care for himself at home living with his . He remains mentally competent to make decisions. Problem 03452123 Obstructive sleep apnea (G47.33) Active confirmed He continues to use his CPAP machine with good effect. He denies any recent daytime somnolence. Problem 328782365 Ascending aortic aneurysm (I71.2) Active confirmed He has a CT sca n of the chest and a consultation with a cardiac surgeon regularly at scheduled intervals. He has had no chest pain or dyspnea. 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 It is asymptomatic. Problem 150188312 History of skin cancer (Z85.828) Active confirmed No new skin lesions were noted on today's examination. Surveillance will continue. Problem 02833962 Hoarseness (R49.0) Active confirmed His voice was m uch more normal today. The urinalysis and throat physician has increased the pantoprazole and he is doing well. Problem Osteoarthritis of knee (331878148) Osteoarthritis of knees, bilateral (M17.0) Active confirmed There was mild crepitus of his knees. He has occasional knee pain but is able to conduct all of the activities of daily life. 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 Problem 460819824 Chronic GERD (K21.9) Active confirmed His chronic ref lux symptoms are well controlled with bgwq-exu-ipekcyl medication. Problem 52477844 Peripheral polyneuropathy (G62.9) Active confirmed Vital Signs Heart Rate 71 /min 09/28/2024 Temperature 97.2 degrees Fahrenheit 09/28/2024 Blood pressure diastolic 58 mm Hg 09/28/2024 Height 76 in 09/28/2024 Blood pressure systolic 96 mm Hg 09/28/2024 Weight 215 lbs 09/28/2024 BMI 26.17 kg/m2 09/28/2024 Encounters Encounter Location Date Provider Diagnosis Tony Greenwood III, MD [address] [place] [address] [address] [place] [phone] 12/27/2023 Tony Greenwood Hyperlipidemia E78.5 ; Overweight E66.3 ; BPH (benign prostatic hyperplasia) N40.0 ; Essential hypertension I10 ; 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 ; Peripheral vascular disease I73.9 ; Ascending aortic aneurysm I71.2 ; Depression F32.9 ; Chronic GERD K21.9 ; Osteoarthritis of knees, bilateral M17.0 and Former smoker Z87.891 Tony Greenwood III, MD [address] [place] [address] [place] [address] 09/28/2024 Tony Greenwood Coronary artery dise ase [...] chronic reflux symptoms are well controlled with ujbk-bvi-sjhutju medication. 09/28/2024 BPH (benign prostati c hyperplasia) [...] chronic reflux symptoms are well controlled with aryg-shr-hjiraud medication. 12/27/2023 Former smoker (ICD-1 0 - [...] Order Date PROFILE, FASTING (COMPREHENSIVE METABOLI C) 03/28/2021 PROFILE, FASTING (COMPREHENSIVE METABOLI C) 12/18/2022 PROFILE, FASTING (COMPREHENSIVE METABOLI C) 05/18/2020 PROFILE, FASTING (COMPREHENSIVE METABOLI C) 06/28/2017 PROFILE, FASTING (COMPREHENSIVE METABOLI C) 09/28/2024 PROFILE, FASTING (COMPREHENSIVE METABOLI C) 10/05/2022 PROFILE, FASTING (COMPREHENSIVE METABOLI C) 03/04/2020 PROFILE, FASTING (COMPREHENSIVE METABOLI C) 12/27/2023 PROFILE, FASTING (COMPREHENSIVE METABOLI C) 09/26/2020 PROFILE, [...] TOTAL 05/21/2022 PSA, TOTAL 12/18/2022 PSA, TOTAL 05/18/2020 PSA, TOTAL 09/28/2024 PSA, TOTAL 12/27/2023 PSA, TOTAL 09/26/2020 PSA, TOTAL 09/20/2023 CBC w DIFF 09/26/2020 CBC w DIFF 08/10/2022 CBC w DIFF 08/19/2019 CBC w DIFF 03/28/2021 CBC w DIFF 05/21/2022 CBC w DIFF 06/28/2017 CBC w DIFF 12/18/2022 CBC w DIFF 05/18/2020 CBC w DIFF 09/28/2024 CBC w DIFF 10/05/2022 CBC w DIFF [...] Details Provider Name:Tony Greenwood, 02/02/2025 03:00:00 PM, [address] [place] [address] [address], [place], [address], Provider Name:Tony Greenwood, 09/29/2025 03:00:00 PM, [address] [place] [address] [address], [place], [phone], Insurance Providers Payer Name Payer Address Payer Phone Subscriber Number Group Number Insured Name Patient Relationship to Insured Coverage Start Date Coverage End Date [employer] Medicare [id number] [facility] [place] [phone] [id number] Efrain Pedro Self - patient is the insured [employer] [address] [place] [address] [phone] [id number] Efrain Pedro Self - patient is the insured Medical (General) History Medical History History ICD Code left popliteal artery aneurysm, repaired depression hyperlipidemia CAD- 1997 non-eluting stent RCA, OR caracts scc right eyelid and forehead former smoker fractured metatarsal right-sided aortic arch 4.5 cm ascending aortic aneurysm diastasis rectus Surgical History Surgery Date(Month/Year) Right popliteal aneurism stent 06/2024 Right hip surgery 12/2022 left cheek lesion removal [facility] rmatology 2021 repair popliteal aneurysm 01/2004 colonoscopy,negative 09/2009 Hospitalization History Reason Date(Month/Year) stent placement 2017
--- OUTSIDE RECORDS SUMMARY | 2024-11-20 07:19 | XMS_ITS | Clinical Summary ---
Author Organization [employer] [facility] Address [address] [place] [address] [address] [place] [address] Care Team Providers Care Engine Maintenance Mechanic Name Role Phone Unavailable Primary Care Provider [...] this topic Insurance DENTAL - AETNA DENTAL [facility] [place] [address] DENTAL - [employer]AL [place] [facility] [facility] [place]
== END 2024-11-20 07:18 | disposition home or self-care (01) ==
LOC: HO.MRI 07:17
PROVIDERS: PCP Internal Medicine Medical Oncology; Visit Provider Psychiatry & Neurology Neurology
DX: R41.89 Other symptoms and signs involving cognitive functions and awareness (principal)
CPT/HCPCS: 70551

== ENCOUNTER → 2024-11-20 07:25 | Outpatient (BNV) | payer MEDICARE, OTHER, SELFPAY | PROVIDERS: PCP Internal Medicine Medical Oncology; Visit Provider Radiology Diagnostic Radiology | DX: R41.89 Other symptoms and signs involving cognitive functions and awareness (principal) | CPT/HCPCS: 70551 ==

== ENCOUNTER → 2024-11-23 08:41 | Outpatient (REF) | payer MEDICARE, OTHER, SELFPAY ==
--- NOTE | 2024-11-23 08:45 | CA_ITS ---
Transthoracic Echocardiogram Patient (Last, First, Middle): Efrain Pedro W Gender: Male Date of : 1940 Age: 84 Procedure Date: 11/23/2024 Procedure Type: Transthoracic Echocardiogram Location: OP Height: 193.04 cm Weight: 101.15 kg BSA: 2.32 m2 Heart Rate: 69 bpm BP: 118 / 68 mmHg Manager Social Work: MEHUL Referring MD: Jhonathan Gama MD Education Spec: Jhonathan Gama MD Symptoms: I71.9 - Aortic aneurysm of unspecified site, without rupture Study Quality: Adequate ECG Rhythm: Sinus Conclusions: - 1. Normal LV ejection fraction with impaired relaxation filling pattern with underlying wall motion abnormality consistent with coronary artery disease 2. Cardiac valvular Dopplers within normal limits 3. Moderately dilated ascending aorta at 4.5 cm 4. No gross pericardial effusion Findings Left Ventricle Normal left ventricular size, thickness, and systolic function. The visually estimated ejection fraction is between 55-60%. Spectral Doppler is indicative of an impaired relaxation filling pattern. E/E prime ratio is between 8 and 15 consistent with indeterminate filling pressures. Wall Motion Rest Echo Findings The inferoseptal wall, the mid inferior, and basal inferolateral segments are hypokinetic. The basal inferior segment is akinetic. All other scored wall segments showed normal motion. Right Ventricle Normal right ventricular cavity size and systolic function. Atria The left atrium is likely dilated. There is no evidence of interatrial shunt. The right atrium is normal in size. Aortic Valve There is mild calcification of the aortic valve. There is no aortic valve stenosis. There is no aortic valve regurgitation. Mitral Valve There is mild anterior and posterior mitral leaflet thickening. There is mild mitral annular calcification. There is trace mitral valve regurgitation. There is no mitral valve stenosis. Pulmonic Valve The pulmonic valve was not well visualized. Tricuspid Valve Likely normal tricuspid valve structure and function. Tricuspid regurgitation envelope is inadequate for calculation of right ventricular systolic pressure. Normal right atrial pressure. Great Vessels The pulmonary artery was not well visualized. There is moderate dilatation of the ascending aorta measuring 4.50 cm. Small plaque is seen in the sino tubular ridge. Venous The inferior vena cava is normal in size and collapses greater than 50% with inspiration. Pericardium/Pleural There is no evidence of pericardial effusion. Prior Study Comparison No significant change compared to prior study dated: 11/14/2023. Measurements 2D Linear Measurements IVSd: 0.84 0.6-0.9/0.6-1.0 cm LVIDd: 5.03 3.9-5.3/4.2-5.9 cm LVIDd Index: 2.17 2.4-3.2/2.2-3.1 cm/m2 LVIDs: 4.12 2.0-3.6 cm LVPWd: 0.85 0.7-1.1 cm LA Diam: 3.60 2.7-3.8/3.0-4.0 cm LAIDs Index: 1.55 1.5-2.3 cm/m2 LV Mass: 183.39 67-162/88-224 g LV Mass Index: 79.05 43-95/49-115 g/m2 LVOT Diam: 2.80 3.0+(-)1.3 cm 2D Systolic Function EF 4C: 57.80 >55% EF 2C: 56.30 >55% EF BiP: 57.70 >55% Mitral Valve MV Pk E: 0.52 MV PK A: 0.97 MV Decel Time: 294.00 E/A: 0.50 E'Lateral: 4.79 E'Medial: 3.81 E/E' Med: 13.60 E/E' Lat: 10.80 PHT: 86.00 MVA PHT: 2.[address] [facility]: 1.77 Aortic Valve AoV Pk Blu: 0.93 AoV Pk Grad: 3.00 PETTY: 4.99 LVOT LVOT Pk Blu: 0.73 LVOT Mn Blu: 0.52 LVOT VTI: 0.16 LVOT Pk Grad: 2.00 LVOT Mn Grad: 1.00 LVOT Diam: 2.80 LVOT Area: 6.16 Diastolic Function MV Pk E: 0.52 MV Pk A: 0.97 E/A: 0.50 E'Medial: 3.81 E/E' Med: 13.60 E' Laterial: 4.79 E/E' Lat: 10.80 Right Ventricle TAPSE (mm): 25.30 TVS' Blu: 12.70 Tricuspid Valve RA Press: 3.00 Great Vessels Aorta Sinus of Valsalva: 4.30 2.0-3.5 cm Ao Asc: 4.50 2.1-3.4 cm Pulmonary Valve PV Pk Blu: 0.79 Peak PV Grad: 3.00 Updated in Other Vendor System with Status of Final Jhonathan Gama MD electronically signed on 11/24/2024 12:27:46 PM with status of Final
--- OUTSIDE RECORDS SUMMARY | 2024-11-23 08:45 | XMS_ITS ---
Author Organization Tony Greenwood III, MD Address [address] [place] [address] [address] [place] [address] Care Team Providers Care Preschool Program Director Name Role Phone Tony Greenwood Primary Care [...] referral and would like it faxed to [phone] Referral Priority Routine Reason leg weakness gait training muscle strengthening Diagnosis 1 Peripheral polyneuro alexis (G62.9) Diagnosis 2 Weakness of lower ex tremity, unspecified laterality (R29.898) Referral Organization Tony Greenwood III, MD Referring Provider First Name Tony Referring Provider Last Name Krystyna Referring Provider Speciality Internal M edicine Referred Provider [facility] Physical Therapy Janusz Referred Provider Specialty Physical The rapist General Notes Jennifer Rachel AIR AND MISSILE DEFENSE CREWMEMBER 09/28 11:27:33 AM > ref/demo/progress note faxed to [facility] PT dept Referral Priority Routine Referral [...] External Active Ketoconazole 2 % 1 application Career Consultant ally Once a day 03/15/2023 Active CeleBREX [...] DAYS Active Vitamin D Active Zinc Skyler-Benzyl Ngu-Psafc-Jrc Active Pantoprazole Sodium 40 MG TAKE 1 [...] Date Provider Diagnosis Tony Greenwood III, MD [address] [place] [address] DR [place], [place] [address] 09/28/2024 Tony Greenwood Coronary artery dise ase [...] chronic reflux symptoms are well controlled with zhgj-avr-sdbcxvh medication. 09/28/2024 Ascending aortic aneurysm (ICD-10 - [...] % External Ketoconazole 2 % 1 application Career Consultant ally Once a day 03/15/2023 CeleBREX 100 [...] FOR 90 DAYS Vitamin D Zinc Skyler-Benzyl Kwc-Ufflg-Wqv Pantoprazole Sodium 40 MG TAKE 1 TABLET [...] leg weak ness gait training muscle strengthening, [facility] Physical Therapy Next Appt Details Follow Up: 4 Months, Reason: ov review labs Provider Name:Tony Greenwood, 02/02/2025 03:00:00 PM, [address] [place] [address] [address], [place], [address], Provider Name:Tony Greenwood, 09/29/2025 03:00:00 PM, [address] [place] [address] [address], [place], [address], Progress Notes * Efrain PEDRO IIDOB: (84 yo M)Acc No.[id number]:09/28/2024 Progress Notes Patient:?Efrain PEDRO II Provider:?Tony Greenwood MD :1940???Age:84 Y???Sex:Male Nuno e:09/28/2024 Address:[address] [place] [address], [place]-[id number] Subjective: * Chief Complaints: * ???Annual Exam [...] ?Interpretation?Negative ???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 He was born [facility]. He is now working at the [employer]. * Medications:?TakingbuPROPion HCl ER (XL) 150 [...] DAYS Vitamin C Vitamin D Zinc Skyler-Benzyl Axl-Thaub-Rbe Antioxidant CoQ-10 Gabapentin 100 MG Capsule 2 [...] C Taking Vitamin D Taking Zinc Skyler-Benzyl Kkr-Kbtkk-Iug Taking Antioxidant Taking CoQ-10 Taking Gabapentin 100 [...] chronic reflux symptoms are well controlled with kyqh-hkw-zgfiuai medication.???11.?Ascending aortic aneurysm - I71.2???Notes :He has [...] DAYS;?Continue Vitamin C;?Continue Vitamin D;?Continue Zinc Skyler-Benzyl Ivm-Nrkso-Ksn;?Continue Antioxidant;?Continue CoQ-10;?Continue Gabapentin Capsule, 100 MG, 2 [...] * ?BLD Negative Negative - * Procedure Codes:?82499 URINE -NO MICRO * Preventive Medicine:? ??Counseling:?Care [...] Greenwood MD Date:?09/12 Generated for Oralia buckley/Jose/Lilly on:?11/23/2024 08:45 AM EDT History and Physical Notes [...]
--- OUTSIDE RECORDS SUMMARY | 2024-11-23 08:45 | XMS_ITS ---
Author Organization Tony Greenwood III, MD Address [address] [place] [address] [address] [place] [address] Care Team Providers Care Medical Operations Supervisor Name Role Phone Tony Greenwood Primary Care [...] External Active Ketoconazole 2 % 1 application Apprentice Plant Attendant ally Once a day 03/15/2023 Active Doxycycline [...] C Active Vitamin D Active Zinc Skyler-Benzyl Wat-Fukgi-Lku Active Antioxidant Active CoQ-10 Active Social History [...] Date Provider Diagnosis Tony Greenwood III, MD [address] [place] [address] [place] [address] 12/27/2023 Tony Greenwood Hyperlipidemia E78.5 ; Overweight [...] chronic reflux symptoms are well controlled with giwc-qga-zpehofj medication. 12/27/2023 Osteoarthritis of knees, bilateral (ICD-10 [...] % External Ketoconazole 2 % 1 application Apprentice Plant Attendant ally Once a day 03/15/2023 Doxycycline Hyclate [...] day Vitamin C Vitamin D Zinc Skyler-Benzyl Ddo-Weygo-Gul Antioxidant CoQ-10 Pending Test Test Name Order Date PROFILE, FASTING (COMPREHENSIVE METABOLI C) 12/27/2023 PSA, TOTAL 12/27/2023 CBC WITH AUTO DIFF 12/27/2023 Lipid Panel 12/27/2023 Referrals Referral Date Details 12/27/2023 12/27/2023, Transfer of Care Consult and Treat, (Jad) Luther Whitmore Next Appt Details Follow Up: As Scheduled , Re ason: OV, Annual Exam Provider Name:Tony Greenwood, 02/02/2025 03:00:00 PM, [address] [place] [address] [address], [place], [phone], Provider Name:Tony Greenwood, 09/29/2025 03:00:00 PM, [address] [place] [address] [address], [place], [address], Progress Notes * Efrain PEDRO IIDOB: (83 yo M)Acc No.[id number]:12/27/2023 Progress Notes Patient:?PedroEfrain valentine Provider:?Tony Greenwood MD :1940???Age:83 Y???Sex:Male Nuno e:12/27/2023 Address:[address] [place] [address], [id number] Subjective: * Chief Complaints: * ???Popliteal artery [...] 09/2009repair popliteal aneurysm 01/2004left cheek lesion removal [facility] ight hip surgery 12/2022 * Hospitalization/Major [...] smoker ???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 He was born [facility]. He is now working at the [employer]. * Medications:?TakingVitamin C Vitamin D Zinc Skyler-Benzyl Avl-Dboza-Hyp Antioxidant CoQ-10 Doxycycline Hyclate 100 MG Capsule [...] C Taking Vitamin D Taking Zinc Skyler-Benzyl Nwk-Herao-Yrw Taking Antioxidant Taking CoQ-10 Taking Doxycycline Hyclate [...] chronic reflux symptoms are well controlled with jsfr-hxo-nkvbbzt medication.?10.?Osteoarthritis of knees, bilateral - M17.0, There [...] urged to quit.?12/27/2023 * Follow Up:?As Scheduled ([place] son: OV, Annual Exam) * Images: * Sign off status: Completed true * Provider:?Tony Greenwood MD Date:?12/13 Generated for Printlouise ng/Fabreanneg/eTransmitting on:?11/23/2024 08:45 AM EDT History and Physical Notes * HPI (History of Present Illness) Category Sub-Category Detail Notes COVID-19 Screening Questions Have you had any new onset fever, chills, cough, congestion, sore throat, shortness of breath, muscle aches?: No Have you been exposed to the virus withi n the last 10 days?: No Have you travelled internationally in [facility] last 10 days?: No Have you [...] Not leandra 12/27/2023 Tony Greenwood [place] , ([place]) Transfer of Care Consult and Treat
--- OUTSIDE RECORDS SUMMARY | 2024-11-23 08:45 | XMS_ITS ---
Author Organization Tony Greenwood III, MD Address [address] [place] [address] DR BENZ Alexander [place] [phone] Care Team Providers Care Line Department Supervisor Name Role Phone Tony Greenwood Primary [...] lly Once a day Active Zinc Skyler-Benzyl Mju-Xvmvg-Ajs Active Antioxidant Active Vitamin D Active Vitamin C Active Pantoprazole Sodium 40 MG TAKE 1 TABLET BY MOUTH EVERY DAY FOR 90 DAYS Active Ketoconazole 2 % 1 application Cq Developer ally Once a day 03/15/2023 Active [...] Provider Diagnosis Tony Greenwood III, MD [address] [place] [address] 03/20/2024 Tony Greenwood Hyperlipidemia E78.5 Assessments Encounter [...] capsule Orally Once a day Zinc Skyler-Benzyl Hvp-Zxjlo-Mtu Antioxidant Vitamin D Vitamin C Pantoprazole Sodium 40 MG TAKE 1 TABLET BY MOUTH EVERY DAY FOR 90 DAYS Ketoconazole 2 % 1 application Cq Developer ally Once a day 03/15/2023 buPROPion [...] Provider Name:Tony Greenwood, 02/02/2025 03:00:00 PM, [address] [facility] [place], [place], [phone], Provider Name:Tony Greenwood, 09/29/2025 03:00:00 PM, [address] [facility] [place], [place], [phone], Progress Notes * Efrain PEDRO IIDOB: (84 yo M)Acc No.[id number]:03/20/2024 Progress Notes Patient:?Efrain PEDOR II Provider:?Tony Greenwood MD :1940???Age:84 Y???Sex:Male Nuno e:03/20/2024 Address:[address] [place] [address], [phone] Subjective: * Chief Complaints: * ???1. 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 He was born [facility]. He is now working at the [employer]. * Medications:?Taking Vitamin C , Taking Vitamin D , Taking Zinc Skyler-Benzyl Mic-Cvmll-Cae , Taking Antioxidant , Taking CoQ-10 , [...] Greenwood MD Date:?12/2023 Generated for Oralia buckley/Jose/Joeitting on:?11/23/2024 08:45 AM EDT History and Physical [...]
--- OUTSIDE RECORDS SUMMARY | 2024-11-23 08:45 | XMS_ITS | Clinical Summary ---
Author Organization [employer] [facility] Address [address] [place] [address] [address] [place] [address] Care Team Providers Care Energy Management Specialist Name Role Phone Unavailable Primary Care Provider [...] this topic Insurance DENTAL - [employer] D[employer]AL [facility] [address] DENTAL - [employer] DENTAL [place] [employer] [facility] [place]
--- OUTSIDE RECORDS SUMMARY | 2024-11-23 08:45 | XMS_ITS | Patient Health Record ---
Author Organization Tony Greenwood III, MD Address [address] [place] [address] DR BENZ Alexander [place] [address] Care Team Providers Care Card Sorter Name Role Phone Tony Greenwood Primary Care Provider [phone] Allergies Allergen (clinical drug ingredient) Drug/Non Drug [...] date:09/28/2024 03:10:03 PM Interpretation: Performing Lab: Notes/Report: [address] [address] [address] Scan Report Signed Patient: Efrain Pedro MR#: [id number] : 1940 Acct:[id number] Age/Sex: 84 / M ADM Date: 06/04/24 Loc: HO.CT Attending Dr: Valdo Haley MD Ordering Physician: Valdo Haley MD Date of Service: 06/04/24 Procedure(s): CT chest wo IV con Accession Number(s): [id number] cc: Tony Greenwood MD; Valdo Haley MD Report Number: [id number]: Total DLP = 214.00 mGy-cm EXAMINATION: CT [...] Exam submitted for review 08/04/2024 3:07 PM [employer]. FINDINGS: PULMONARY NODULES: -There are a few [...] by: Tony Lopez MD 08/04/2024 04:22 PM [facility] Dictated By: Tony Lopez MD Signed By: <Electronically signed by Tony Lopez MD in OV> 08/04/24 1622 DD/ 0736 TD/TT: 06/04/24 0742 Drug Worker: [place] [id number] CT Scan Report Signed Patient: Efrain Pedro MR#: [id number] : 1940 Acct:[id number] Age/Sex: 84 / M ADM Date: 06/04/24 Loc: .CT Attending Dr: Valdo Haley MD Ordering Physician: Valdo Haley MD Date of Service: 06/04/24 Procedure(s): CT [facility] st wo IV con Accession Number(s): [id number] cc: Tony Greenwood MD; Valdo Haley MD Report Number: [id number]: Total DLP = 214.00 mGy-cm EXAMINATION: CT [...] Exam submitted for review 08/04/2024 3:07 PM [employer]. FINDINGS: PULMONARY NODULES: -There are a few [...] by: Tony Lopez MD 08/04/2024 04:22 PM [facility] Dictated By: Tony Lopez MD Signed By: <Electronically signed by Tony Lopez MD in OV> 08/04/24 1622 DD/ 0736 TD/TT: 06/04/24 0742 Drug Worker: Complete Blood Count Auto Di ff Reviewed date:09/28/2024 03:10:03 PM Interpretation: Performing Lab:[facility], [address] [place] [phone] Notes/Report: White Blood Count 7.4 4.8-10.8 X10*3/uL [...] NRBC Abs Auto 0.000 0.0-0.012 X10*3/uL Comprehensive [place]. Panel Fa Reviewed date:09/28/2024 03:10:03 PM Interpretation: Performing Lab:[facility], [address] [place] [address] Notes/Report: Sodium 146 135-145 mmol/L Potassium 5.0 [...] Panel Reviewed date:09/28/2024 03:10:03 PM Interpretation: Performing Lab:[facility], [address] [place] [phone] Notes/Report: Triglycerides 233 <150 mg/dL Desirable Triglyceride: [...] Antigen Reviewed date:09/28/2024 03:10:03 PM Interpretation: Performing Lab:[address] [address] Notes/Report: Prostate Specific Antigen 1.47 <0.05-4.0 ng/mL PSA methodology: Puente Alinity i Chemiluminescent Microparticle Immunoassay (CMIA) Vitamin B12 and Folate (Not yet reviewed by provider) Interpretation: Performing Lab:[address] [address] Notes/Report: Vitamin B12 998 200-900 pg/mL NORMAL 200-900 PG/ML INDETERMINATE 160-199 PG/ML DEFICIENT < 160 PG/ML Folate > 20.0 > or = 4.0 ng/mL Reference Values: > or = 4.0 ng/mL < 4.0 ng/mL suggests folate deficiency Methotrexate, aminopterin and folinic acid (leucovorin) are chemotherapeutic agents whose molecular structures are similar to folate; therefore, the Cosmetic Counselor folate assay cannot be used for patients using these drugs. TSH reflex Free T4 (Not yet reviewed by provider) Interpretation: Performing Lab:[address] [address] Notes/Report: TSH reflex Free T4 1.06 0.32-4.0 uIU/mL MR head/brain wo con (Not ye t reviewed by provider) Interpretation: Performing Lab: Notes/Report: [address] [address] Magnetic Resonance Report Signed Patient: Efrain Pedro MR#: [id number] : 1940 Acct:[id number] Age/Sex: 84 / M ADM Date: 11/20/24 Loc: HO.MRI Attending Dr: Jessica Mcghee MD Ordering Physician: Jessica Mcghee MD Date of Service: 11/20/24 Procedure(s): MR head/brain wo con Accession Number(s): [id number] cc: Jessica Mcghee MD; Tony Greenwood MD EXAMINATION: MR BRAIN WITHOUT CONTRAST CLINICAL INFORMATION: Other symptoms and signs involving cognitive functions and awareness. COMPARISON: None available. TECHNIQUE: MRI of the brain was obtained using routine sequences without contrast. FINDINGS: No restricted diffusion. No acute intracranial hemorrhage, mass effect, midline shift, hydrocephalus or herniation. Bilateral, a few scattered, nonspecific subcortical and deep white matter hyperintense T2 FLAIR signal involving centrum semiovale and rose radiata. No signal abnormality or gross volume loss in the hippocampi. Mild prominence of the extra-axial CSF spaces cerebral sulci and ventricles. Sellar/suprasellar region demonstrated no signal abnormality or gross masses. Craniocervical junction demonstrates normal position of the cerebellar tonsils. Flow-void signal within the main cerebral vessels is normal. No abnormal susceptibility signal within the substantia nigra. MR/MR head/brain wo con IMPRESSION: No acute stroke/nonhemorrhagic ischemia. Minimal White matter disease. Consider small vessel occlusive disease. Mild global cerebral atrophy. Electronically signed by: Pritesh Sarmiento MD 11/20/2024 08:27 AM EDT RP Dictated By: Pritesh Garcia MD Signed By: <Electronically signed by Pritesh Dickinson MD in OV> 11/20/24826 DD/ 0725 TD/TT: 11/20/24 0800 Drug Worker: [place] [id number] Magnetic Resonance Report Signed Patient: Efrain Pedro MR#: [id number] : 1940 Acct:[id number] Age/Sex: 84 / M ADM Date: 11/20/24 Loc: HO.MRI Attending Dr: Jessica Mcghee MD Ordering Physician: Jessica Mcghee MD Date of Service: 11/20/24 Procedure(s): MR head/brain wo con Accession Number(s): [id number] cc: Jessica Mcghee MD; Tony Greenwood MD EXAMINATION: MR BRAIN WITHOUT CONTRAST CLINICAL INFORMATION: Other symptoms and signs involving cognitive functions and awareness. COMPARISON: None available. TECHNIQUE: MRI of the brain was obtained using routine sequences without contrast. FINDINGS: No restricted diffusion. No acute intracranial hemorrhage, mass effect, midline shift, hydrocephalus or herniation. Bilateral, a few scattered, nonspecific subcortical and deep white matter hyperintense T2 FLAIR signal involving centrum semiovale and rose radiata. No signal abnormalit y or gross volume loss in the hippocampi. Mild prominence of t he extra-axial CSF spaces cerebral sulci and ventricles. Sellar/suprasellar region demonstrated no signal abnormality or gross masses. Craniocervical junction demonstrates normal position of the cerebellar tonsils. Flow-void signal within the main cerebral vessels is normal. No abnormal susceptibility signal within the substantia nigra. MR/MR head/brain wo con IMPRESSION: No acute stroke/nonhemorrhagic ischemia. Minimal White matter disease. Consider small vessel occlusive disease. Mild global cerebral atrophy. Electronically dinorah d by: Pritesh Sarmiento MD 11/20/2024 08:27 AM EDT RP Dictated By: Pritesh Gunderson MD Signed By: <Electronically signed by Pritesh Dickinson MD in OV> 11/20/24826 DD/ 0725 TD/TT: 11/20/24 0800 Drug Worker: Reason For Referral Reason Transfer of Care Con sult and Treat Diagnosis 1 Erectile dysfunction (N52.9) Diagnosis 2 BPH (benign prostati c hyperplasia) (N40.0) Referral Organization Tony Greenwood III, MD Referring Provider First Name Tony Referring Provider Last Name Greenwood Referring Provider Speciality Internal M edicine Referred Provider Luther Whitmore ([place]) Referred Provider Specialty Urology General Notes Fouzia Roy 2023 11:40:18 AM EDT > Faxed referral and progress note Referral Priority Routine Referral Appointment Date 03/04/2024 Reason R/O dementia Diagnosis 1 Memory loss (R41.3) Referral Organization Tony Greenwood III, MD Referring Provider First Name Tony Referring Provider Last Name Greenwood Referring Provider Speciality Internal M edicine Referred Provider Jessica Mcghee Referred Provider Specialty Sleep Medici ne General Notes Rachel Rodriguez CMA 09/30 10:14:05 AM > Ref/demo/progress note/labs faxed to Alanis Woo Amber 11/04/2024 01:58:24 PM > Spoke Wanda at Sleep Medicine regarding referral for patient. Patient had called and left a message to see if they have received the referral. They did not receive the referral and would like it faxed to [phone] Referral Priority Routine Reason leg weakness gait training muscle strengthening Diagnosis 1 Peripheral polyneuro alexis (G62.9) Diagnosis 2 Weakness of lower ex tremity, unspecified laterality (R29.898) Referral Organization Tony Greenwood III, MD Referring Provider First Name Tony Referring Provider Last Name Krystyna Referring Provider Speciality Internal M edicine Referred Provider [facility] Physical Therapy Janusz Referred Provider Specialty Physical The rapist General Notes Jennifer Rachel CAMPER ASSEMBLER 09/28 11:27:33 AM > ref/demo/progress note faxed to [facility] PT dept Referral Priority Routine Referral Appointment Date 10/13/2024 Medications Medication SIG (Take, Route, Frequency, Duration) Notes Start Date End Date Status Finasteride 5 MG TAKE 1 TABLET BY DIAMOND TH EVERY DAY FOR 30 DAYS for 90 Active Vitamin D Active Zinc Skyler-Benzyl Yhj-Nngjr-Tlu Active Pantoprazole Sodium 40 MG TAKE 1 [...] External Active Ketoconazole 2 % 1 application Pecan Cleaner ally Once a day 03/15/2023 Active Immunizations [...] Administered Fluzone High-Dose (HD-IIV3) Unknown 04/10/2017 Administ erealanis COVID PFIZER Unknown 07/27/2020 Administered Flu-IIv4 Unknown 04/18/2016 Administered Flu-IIv3 Unknown 04/14/2019 Administered COVID-19 Moderna SPIKEVAX Unknown 10/10/2023 Administer ed PPV 23 Unknown 11/13/2021 Administered COVID PFIZER Unknown 10/23/2021 Administered Flu-IIv3 Unknown 03/24/2018 Administered Fluzone High-Dose (HD-IIV3) Unknown 03/30/2024 Administ erealanis Tdap Unknown 09/09/2024 Administered PCV20 Unknown 10/10/2023 [...] Problem Status W/U Status Risk Notes Problem 5443470 Former smoker (Z87.891) Active confirmed He is highly motivated not to smoke. He has a strategy for prevention of relapse and maintenance of abstinence. Problem 34615727 Hyperlipidemia (E78.5) Active confirmed His lipids have been well controlled. A fasting lipid profile was ordered prior to his next visit. No change in his medications was made. Problem 735812993 Overweight (E66.3) Active confirmed His body mass index is 26. We discussed diet and nutrition. We made a plan to lose weight at a rate of one half of a pound per week.He has lost 12 pounds since his last visit. Problem 71947744 Depression (F32.9) Active confirmed His depression is slightly worse after the surgery. He requested that I increase the bupropion to 450 mg a day. I have done so. This is a dose. He has taken successfully in the past. Problem 62374074 Simple chronic bronchitis (J41.0) Active confirmed Problem Osteoarthritis of hip (430979990) Osteoarthritis of hip, unspecified (M16.9) Active confirmed He occasionally has pain in his right hip that requires him to stop and rest frequently. He is scheduled for surgery to replace the right hip joint on January 08, [address] Rahman at [facility]. His blood work is adequate. His electrocardiogram is unremarkable. He has had clearance from pulmonary and cardiology. He is given general medical clearance for the procedure. His risk is greater than average because of his multiple comorbidities and coronary artery disease but is acceptable. He is granted, medical clearance. Problem 76912096 Coronary artery disease (I25.10) Active confirmed He has had no angina or diaphoresis or palpitations since his last visit. His coronary artery disease is stable. He is compliant with all his medications. His lipid profile is in its target range. He was seen by cardiology, November 19, 2022 and thought to be stable. Problem 365845439 BPH (benign prostatic hyperplasia) (N40.0) Active confirmed He rises from sleep once a night to urinate. No change in his medications was needed. Problem 15695158 Essential hypertension (I10) Active confirmed His blood press ure today is 99/69. No change in his regimen as needed. 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 He has claudication but is able to conduct all of the activities of daily living. His vascular surgeon has recommended correction of the remaining popliteal artery. The patient is not certain he wants to undergo that surgery at this time. Problem 432963080 Erectile dysfunction (N52.9) Active confirmed His current medications are effective. Problem 68029819 Memory loss (R41.3) Active confirmed He is mildly forgetful but is aware of it. It is likely vascular in origin. He remains able to care for himself at home living with his . He remains mentally competent to make decisions. Problem 84628624 Obstructive sleep apnea (G47.33) Active confirmed He continues to use his CPAP machine with good effect. He denies any recent daytime somnolence. Problem 708553387 Ascending aortic aneurysm (I71.2) Active confirmed He has a CT sca n of the chest and a consultation with a cardiac surgeon regularly at scheduled intervals. He has had no chest pain or dyspnea. 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 It is asymptomatic. Problem 963100996 History of skin cancer (Z85.828) Active confirmed No new skin lesions were noted on today's examination. Surveillance will continue. Problem 15268727 Hoarseness (R49.0) Active confirmed His voice was m uch more normal today. The urinalysis and throat physician has increased the pantoprazole and he is doing well. 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 He has occasional knee pain but is able to conduct all of the activities of daily life. 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 Problem 081260259 Chronic GERD (K21.9) Active confirmed His chronic ref lux symptoms are well controlled with kggy-rsq-tmujwiw medication. Problem 21355904 Peripheral polyneuropathy (G62.9) Active confirmed Vital Signs Heart Rate 71 /min 09/28/2024 Temperature 97.2 degrees Fahrenheit 09/28/2024 Blood pressure diastolic 58 mm Hg 09/28/2024 Height 76 in 09/28/2024 Blood pressure systolic 96 mm Hg 09/28/2024 Weight 215 lbs 09/28/2024 BMI 26.17 kg/m2 09/28/2024 Encounters Encounter Location Date Provider Diagnosis Tony Greenwood III, MD [address] [place] [address] [address]EN[address] [address] 12/27/2023 Tony Greenwood Hyperlipidemia E78.5 ; Overweight E66.3 ; BPH (benign prostatic hyperplasia) N40.0 ; Essential hypertension I10 ; 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 ; Peripheral vascular disease I73.9 ; Ascending aortic aneurysm I71.2 ; Depression F32.9 ; Chronic GERD K21.9 ; Osteoarthritis of knees, bilateral M17.0 and Former smoker Z87.891 Tony Greenwood III, MD [address] [place] [address] DR [address]BNZ [address] [address] 09/28/2024 Tony Greenwood Coronary artery dise ase [...] chronic reflux symptoms are well controlled with sgaf-err-lovqlzc medication. 09/28/2024 BPH (benign prostati c hyperplasia) [...] chronic reflux symptoms are well controlled with qojo-ozo-kfyuaww medication. 12/27/2023 Former smoker (ICD-1 0 - [...] Order Date PROFILE, FASTING (COMPREHENSIVE METABOLI C) 05/21/2022 PROFILE, FASTING (COMPREHENSIVE METABOLI C) 12/18/2022 PROFILE, FASTING (COMPREHENSIVE METABOLI C) 03/28/2021 PROFILE, FASTING (COMPREHENSIVE METABOLI C) 05/18/2020 PROFILE, FASTING (COMPREHENSIVE METABOLI C) 06/28/2017 PROFILE, FASTING (COMPREHENSIVE METABOLI C) 09/28/2024 PROFILE, FASTING (COMPREHENSIVE METABOLI C) 10/05/2022 PROFILE, FASTING (COMPREHENSIVE METABOLI C) 12/27/2023 PROFILE, FASTING (COMPREHENSIVE METABOLI C) 03/04/2020 PROFILE, FASTING (COMPREHENSIVE METABOLI C) 09/26/2020 PROFILE, FASTING (COMPREHENSIVE METABOLI C) 09/20/2023 PROFILE, RANDOM (COMPREHENSIVE METABOLIC ) 08/10/2022 PROFILE, RANDOM (COMPREHENSIVE METABOLIC ) 08/19/2019 HEMOGLOBIN A1C (GLYCOHEMOGLOBIN) 021 LIPID PANEL 08/10/2022 LIPID PANEL 08/19/2019 LIPID PANEL 05/21/2022 LIPID PANEL 12/18/2022 LIPID PANEL 05/18/2020 LIPID PANEL 06/28/2017 LIPID PANEL 10/05/2022 LIPID PANEL 03/04/2020 LIPID PANEL 09/26/2020 PSA, TOTAL 09/20/2023 PSA, TOTAL 09/26/2020 PSA, TOTAL 08/10/2022 PSA, TOTAL 08/19/2019 PSA, TOTAL 03/28/2021 PSA, TOTAL 05/21/2022 PSA, TOTAL 12/18/2022 PSA, TOTAL 09/28/2024 PSA, TOTAL 05/18/2020 PSA, TOTAL 12/27/2023 CBC w DIFF 10/05/2022 CBC w DIFF 03/04/2020 CBC w DIFF 09/26/2020 CBC w DIFF 08/10/2022 CBC w DIFF 08/19/2019 CBC w DIFF 03/28/2021 CBC w DIFF 05/21/2022 CBC w DIFF 12/18/2022 CBC w DIFF 06/28/2017 CBC w DIFF 09/28/2024 CBC w DIFF 05/18/2020 MRI BRAIN NO CONTRAST 10/30/2016 Echocardiogram 08/28/2021 PFT with DLCO 07/09/2017 CBC WITH AUTO DIFF 12/27/2023 CBC WITH AUTO DIFF 09/20/2023 SARS COV2 RNA RT PCR 04/11/2020 Lipid Panel 09/28/2024 Lipid Panel 12/27/2023 Lipid Panel 09/20/2023 Vitamin B12 and Folate 11/17/2024 TSH reflex Free T4 11/17/2024 INR WHOLE BLOOD POC 03/28/2021 CT head/brain w con 09/28/2020 CT head/brain wo/w con 10/07/2020 MR head/brain wo con 11/20/2024 Next Appt Details Provider Name:Tony Gilletterne, 02/02/2025 03:00:00 PM, [address] [place] [address] [address], [address], Provider Name:Tony Greenwood, 09/29/2025 03:00:00 PM, [address] [place] [address] [address], [address], Insurance Providers Payer Name Payer Address Payer Phone Subscriber Number Group Number Insured Name Patient Relationship to Insured Coverage Start Date Coverage End Date [employer] Medicare [address] [place] [phone] [id number] Efrain Pedro Self - patient is the insured 2 [employer] [address] [place] [address] [id number] Efrain Pedro Self - patient is the insured Medical (General) History Medical History History ICD Code left popliteal artery aneurysm, repaired depression hyperlipidemia CAD- 1998 non-eluting stent RCA, [place] caracts scc right eyelid and forehead former smoker fractured metatarsal right-sided aortic arch 4.5 cm ascending aortic aneurysm diastasis rectus Surgical History Surgery Date(Month/Year) Right popliteal aneurism stent 06/2024 Right hip surgery 12/2022 left cheek lesion removal [place] [facility] 2021 repair popliteal aneurysm 01/2004 colonoscopy,negative 09/2009 Hospitalization History Reason Date(Month/Year) stent placement 2017
--- OUTSIDE RECORDS SUMMARY | 2024-11-23 08:45 | XMS_ITS | Encounter Summary ---
Author Organization [facility] Address [address] [place] [address] Care Team Providers Care Academic Administrator Name Role Phone Unavailable Primary Care Provider [...]
== END ==
LOC: HO.CARD 08:41
PROVIDERS: PCP Internal Medicine Medical Oncology; Visit Provider Internal Medicine Cardiovascular Disease
DX: I71.9 Aortic aneurysm of unspecified site, without rupture (principal)
CPT/HCPCS: 93306

== ENCOUNTER → 2024-11-23 08:45 | Outpatient (BNV) | payer MEDICARE, OTHER, SELFPAY | PROVIDERS: PCP Internal Medicine Medical Oncology; Visit Provider Internal Medicine Cardiovascular Disease | DX: I71.21 Aneurysm of the ascending aorta, without rupture (principal); I25.10 Atherosclerotic heart disease of native coronary artery without angina pectoris; I35.8 Other nonrheumatic aortic valve disorders; I34.81 Nonrheumatic mitral (valve) annulus calcification | CPT/HCPCS: 93306 ==

== ENCOUNTER 2024-11-30 15:09 | Outpatient (AMB) | payer MEDICARE, OTHER, SELFPAY ==
--- OUTSIDE RECORDS SUMMARY | 2024-11-30 15:12 | XMS_ITS ---
Author Organization Tony Greenwood III, MD Address [address] [place] [address] DR BENZ Alexander [place] [address] Care Team Providers Care Genetics Nurse Name Role Phone Tony Greenwood Primary Care [...] referral and would like it faxed to [phone] Referral Priority Routine Reason leg weakness gait training muscle strengthening Diagnosis 1 Peripheral polyneuro alexis (G62.9) Diagnosis 2 Weakness of lower ex tremity, unspecified laterality (R29.898) Referral Organization Tony Greenwood III, MD Referring Provider First Name Tony Referring Provider Last Name Krystyna Referring Provider Speciality Internal M edicine Referred Provider [facility] Physical Therapy Janusz Referred Provider Specialty Physical The rapist General Notes Jennifer Rachel ARC CUTTER 09/28 11:27:33 AM > ref/demo/progress note faxed to [facility] PT dept Referral Priority Routine Referral Appointment [...] External Active Ketoconazole 2 % 1 application Healthcare Consulting Manager ally Once a day 03/15/2023 Active CeleBREX [...] DAYS Active Vitamin D Active Zinc Skyler-Benzyl Jkd-Tqozj-Ysd Active Pantoprazole Sodium 40 MG TAKE 1 [...] Date Provider Diagnosis Tony Greenwood III, MD [address] [place] [address] DR [place], [place] [address] 09/28/2024 Tony Greenwood Coronary artery dise ase [...] chronic reflux symptoms are well controlled with heet-qpi-orfenqs medication. 09/28/2024 Ascending aortic aneurysm (ICD-10 - [...] % External Ketoconazole 2 % 1 application Healthcare Consulting Manager ally Once a day 03/15/2023 CeleBREX 100 [...] FOR 90 DAYS Vitamin D Zinc Skyler-Benzyl Nrr-Iwmsq-Jse Pantoprazole Sodium 40 MG TAKE 1 TABLET [...] leg weak ness gait training muscle strengthening, [facility] Physical Therapy Next Appt Details Follow Up: 4 Months, Reason: ov review labs Provider Name:Tony Greenwood, 02/02/2025 03:00:00 PM, [address] [place] [address] [address] [place], [address], Provider Name:Tony Greenwood, 09/29/2025 03:00:00 PM, [address] [place] [address] [address] [place], [phone], Progress Notes * Efrain PEDRO IIDOB: (84 yo M)Acc No.[id number]:09/28/2024 Progress Notes Patient:?Efrain PEDRO II Provider:?Tony Greenwood MD :1940???Age:84 Y???Sex:Male Nuno e:09/28/2024 Address:[address] [place] [address], [place] [phone] Subjective: * Chief Complaints: * ???Annual Exam [...] ?Interpretation?Negative ???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 He was born [facility]. He is now working at the [employer]. * Medications:?TakingbuPROPion HCl ER (XL) 150 MG [...] DAYS Vitamin C Vitamin D Zinc Skyler-Benzyl Lrh-Paise-Rpz Antioxidant CoQ-10 Gabapentin 100 MG Capsule 2 [...] C Taking Vitamin D Taking Zinc Skyler-Benzyl Wmv-Ihhrb-Kyv Taking Antioxidant Taking CoQ-10 Taking Gabapentin 100 [...] chronic reflux symptoms are well controlled with dhih-lbf-ppmzbhf medication.???11.?Ascending aortic aneurysm - I71.2???Notes :He has [...] DAYS;?Continue Vitamin C;?Continue Vitamin D;?Continue Zinc Skyler-Benzyl Lfl-Yhtun-Hyg;?Continue Antioxidant;?Continue CoQ-10;?Continue Gabapentin Capsule, 100 MG, 2 [...] * ?pH 6.0 5.0 - 9.0 * ?SALMOE Negative Negative - * ?NIT Negative Negative - * ?PRO 15 Negative - Trac e * ?GLU Negative Negative - * ?KET Negative Negative - * ?UBG 0.2 0.1 - 1.8 * ?ANGEL Negative 0.2 - 1.3 * ?BLD Negative Negative - * Procedure Codes:?95421 URINE -NO MICRO * Preventive Medicine:? ??Counseling:?Care [...] Greenwood MD Date:?09/12 Generated for Oralia buckley/Jose/Lilly on:?11/30/2024 03:12 PM EDT History and Physical Notes * [...]
--- OUTSIDE RECORDS SUMMARY | 2024-11-30 15:12 | XMS_ITS ---
Author Organization Tony Greenwood III, MD Address [address] [place] [address] DR BENZ Alexander [place] [address] Care Team Providers Care Service Representative Name Role Phone Tony Greenwood Primary Care [...] lly Once a day Active Zinc Skyler-Benzyl Sbn-Wymuw-Tqr Active Antioxidant Active Vitamin D Active Vitamin C Active Pantoprazole Sodium 40 MG TAKE 1 TABLET BY MOUTH EVERY DAY FOR 90 DAYS Active Ketoconazole 2 % 1 application Shank Turner ally Once a day 03/15/2023 Active buPROPion [...] Provider Diagnosis Tony Greenwood III, MD [address] [place] [address] 03/20/2024 Tony Greenwood Hyperlipidemia E78.5 Assessments Encounter [...] capsule Orally Once a day Zinc Skyler-Benzyl Dxv-Ufefo-Fcm Antioxidant Vitamin D Vitamin C Pantoprazole Sodium 40 MG TAKE 1 TABLET BY MOUTH EVERY DAY FOR 90 DAYS Ketoconazole 2 % 1 application Shank Turner ally Once a day 03/15/2023 buPROPion HCl [...] Provider Name:Tony Greenwood, 02/02/2025 03:00:00 PM, [address] [facility] [address], [place], [address], Provider Name:Tony Greenwood, 09/29/2025 03:00:00 PM, [address] [facility] [address], [place], [address], Progress Notes * Efrain PEDRO IIDOB: (84 yo M)Acc No.[id number]:03/20/2024 Progress Notes Patient:?Efrain PEDRO II Provider:?Tony Greenwood MD :1940???Age:84 Y???Sex:Male Nuno e:03/20/2024 Address:[address] [place] [address], [place] [id number] Subjective: * Chief Complaints: * ???1. Annual [...] Depression, Hyperlipidemia, CAD- 1997 non-eluting stent RCA, [place], Caracts, Scc right eyelid and forehead, Former smoker, Fractured metatarsal, Right-sided aortic arch, 4.5 cm ascending aortic aneurysm, Diastasis rectus. * Surgical History:?colonoscop y,negative 09/2009, repair popliteal aneurysm 01/2004, left cheek lesion removal [facility] 2021, Right hip surgery 12/2022. 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 He was born [facility]. He is now working at the [employer]. * Medications:?Taking Vitamin C , Taking Vitamin D , Taking Zinc Skyler-Benzyl Rvw-Lrepq-Rjb , Taking Antioxidant , Taking CoQ-10 , [...] Greenwood MD Date:?12/2023 Generated for Oralia buckley/Jose/Joeitting on:?11/30/2024 03:12 PM EDT History and Physical [...]
--- OUTSIDE RECORDS SUMMARY | 2024-11-30 15:12 | XMS_ITS | Encounter Summary ---
Author Organization [employer] [facility] Address [address] [facility] [address] 7t [place] [address] Care Team Providers Care Kitchen Food Assembler Name Role Phone Unavailable Primary Care Provider [...]
--- OUTSIDE RECORDS SUMMARY | 2024-11-30 15:12 | XMS_ITS | Clinical Summary ---
Author Organization [employer] [facility] Address [address] [place] [address] [address] [place] [address] Care Team Providers Care Laboratory Analyst Name Role Phone Unavailable Primary Care Provider [...] patient's age to complete this topic Meningococcal B Vaccine Aged Out No l onger eligible based on patient's age to complete [...] this topic Insurance DENTAL - AETNA DENTAL [place] [facility] [place] [address] DENTAL - AETNA DENTAL [facility]
--- OUTSIDE RECORDS SUMMARY | 2024-11-30 15:12 | XMS_ITS ---
Author Organization Tony Greenwood III, MD Address [address] [place] [address] DR BENZ Alexander [place] [address] Care Team Providers Care Bridge Crane Operator Name Role Phone Tony Greenwood Primary Care Provider [phone] Allergies Allergen (clinical drug ingredient) Drug/Non Drug [...] External Active Ketoconazole 2 % 1 application Pattern Grader ally Once a day 03/15/2023 Active [...] C Active Vitamin D Active Zinc Skyler-Benzyl Bvl-Inlue-Hbh Active Antioxidant Active CoQ-10 Active Social History [...] Date Provider Diagnosis Tony Greenwood III, MD [address] [place] [address] [place] [address] 12/27/2023 Tony Greenwood Hyperlipidemia E78.5 ; Overweight [...] chronic reflux symptoms are well controlled with btsi-mts-dsbjosw medication. 12/27/2023 Osteoarthritis of knees, bilateral (ICD-10 [...] % External Ketoconazole 2 % 1 application Pattern Grader ally Once a day 03/15/2023 Doxycycline [...] day Vitamin C Vitamin D Zinc Skyler-Benzyl Ljx-Ygqce-Oto Antioxidant CoQ-10 Pending Test Test Name Order Date PROFILE, FASTING (COMPREHENSIVE METABOLI C) 12/27/2023 PSA, TOTAL 12/27/2023 CBC WITH AUTO DIFF 12/27/2023 Lipid Panel 12/27/2023 Referrals Referral Date Details 12/27/2023 12/27/2023, Transfer of Care Consult and Treat, (Jad) Luther Whitmore Next Appt Details Follow Up: As Scheduled , Re ason: OV, Annual Exam Provider Name:Tony Greenwood, 02/02/2025 03:00:00 PM, [address] [place] [address] [address], [place], [address], Provider Name:Tony Greenwood, 09/29/2025 03:00:00 PM, [address] [place] [address] [address], [place], [address], Progress Notes * Efrain PEDRO IIDOB: (83 yo M)Acc No.[id number]:12/27/2023 Progress Notes Patient:?PedroEfrain valentine Provider:?Tony Greenwood MD :1940???Age:83 Y???Sex:Male Nuno e:12/27/2023 Address:[address] [place] [address], [place] [id number] Subjective: * Chief Complaints: * ???Popliteal artery [...] 09/2009repair popliteal aneurysm 01/2004left cheek lesion removal [place] [facility] [facility] ight hip surgery 12/2022 * Hospitalization/Major [...] smoker ???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 He was born [facility]. He is now working at the [employer]. * Medications:?TakingVitamin C Vitamin D Zinc Skyler-Benzyl Onb-Hhwyg-Wfw Antioxidant CoQ-10 Doxycycline Hyclate 100 MG Capsule [...] C Taking Vitamin D Taking Zinc Skyler-Benzyl Auv-Qvjyl-Xle Taking Antioxidant Taking CoQ-10 Taking Doxycycline Hyclate [...] chronic reflux symptoms are well controlled with ifyz-mvw-jwcdfad medication.?10.?Osteoarthritis of knees, bilateral - M17.0, There [...] urged to quit.?12/27/2023 * Follow Up:?As Scheduled ([place] son: OV, Annual Exam) * Images: * Sign off status: Completed true * Provider:?Tony Greenwood MD Date:?12/13 Generated for Printlouise ng/Fabreanneg/eTransmitting on:?11/30/2024 03:11 PM EDT History and Physical Notes * HPI (History of Present Illness) Category Sub-Category Detail Notes COVID-19 Screening Questions Have you had any new onset fever, chills, cough, congestion, sore throat, shortness of breath, muscle aches?: No Have you been exposed to the virus withi n the last 10 days?: No Have you travelled internationally in [facility] last 10 days?: No Have you [...] Not leandra 12/27/2023 Tony Greenwood Alexander , ([place]) Transfer of Care Consult and Treat
--- OUTSIDE RECORDS SUMMARY | 2024-11-30 15:13 | XMS_ITS | Patient Health Record ---
Author Organization Tony Greenwood III, MD Address [address] [place] [address] DR BENZ Alexander [place] [address] Care Team Providers Care Patient Relations Representative Name Role Phone Tony Greenwood Primary [...] date:09/28/2024 03:10:03 PM Interpretation: Performing Lab: Notes/Report: [address] [address] [address] Scan Report Signed Patient: Efrain Pedro MR#: [id number] : 1940 Acct:[id number] Age/Sex: 84 / M ADM Date: 06/04/24 Loc: HO.CT Attending Dr: Valdo Haley MD Ordering Physician: Valdo Haley MD Date of Service: 06/04/24 Procedure(s): CT chest wo IV con Accession Number(s): [id number] cc: Tony Greenwood MD; Valdo Haley MD Report Number: [id number]: Total DLP = 214.00 mGy-cm EXAMINATION: CT [...] Exam submitted for review 08/04/2024 3:07 PM CLASSIFICATION AND TREATMENT DIRECTOR. FINDINGS: PULMONARY NODULES: -There are a few [...] by: Tony Lopez MD 08/04/2024 04:22 PM [facility] Dictated By: Tony Lopez MD Signed By: <Electronically signed by Tony Lopez MD in OV> 08/04/24 1622 DD/ 0736 TD/TT: 06/04/24 0742 Studio Technician: [place] [address] CT Scan Report Signed Patient: Efrain Pedro MR#: [id number] : 1940 Acct:[id number] Age/Sex: 84 / M ADM Date: 06/04/24 Loc: .CT Attending Dr: Valdo Haley MD Ordering Physician: Valdo Haley MD Date of Service: 06/04/24 Procedure(s): CT samaria st wo IV con Accession Number(s): [id number] cc: Tony Greenwood MD; Valdo Haley MD Report Number: [id number]: Total DLP = 214.00 mGy-cm EXAMINATION: CT [...] Exam submitted for review 08/04/2024 3:07 PM CLASSIFICATION AND TREATMENT DIRECTOR. FINDINGS: PULMONARY NODULES: -There are a few [...] by: Tony Lopez MD 08/04/2024 04:22 PM [facility] Dictated By: Tony Lopez MD Signed By: <Electronically signed by Tony Lopez MD in OV> 08/04/24 1622 DD/ 0736 TD/TT: 06/04/24 0742 Studio Technician: Complete Blood Count Auto Di ff Reviewed date:09/28/2024 03:10:03 PM Interpretation: Performing Lab:[facility], [address] [place] [phone] Notes/Report: White Blood Count 7.4 4.8-10.8 X10*3/uL [...] NRBC Abs Auto 0.000 0.0-0.012 X10*3/uL Comprehensive [place]. Panel Fa Reviewed date:09/28/2024 03:10:03 PM Interpretation: Performing Lab:[facility], [address] [place] [phone] Notes/Report: Sodium 146 135-145 mmol/L Potassium 5.0 [...] Panel Reviewed date:09/28/2024 03:10:03 PM Interpretation: Performing Lab:[facility], [address] [place] [phone] Notes/Report: Triglycerides 233 <150 mg/dL Desirable Triglyceride: [...] Antigen Reviewed date:09/28/2024 03:10:03 PM Interpretation: Performing Lab:[address] [address] Notes/Report: Prostate Specific Antigen 1.47 <0.05-4.0 ng/mL PSA methodology: Puente Alinity i Chemiluminescent Microparticle Immunoassay (CMIA) Vitamin B12 and Folate (Not yet reviewed by provider) Interpretation: Performing Lab:[address] [address] Notes/Report: Vitamin B12 998 200-900 pg/mL NORMAL 200-900 PG/ML INDETERMINATE 160-199 PG/ML DEFICIENT < 160 PG/ML Folate > 20.0 > or = 4.0 ng/mL Reference Values: > or = 4.0 ng/mL < 4.0 ng/mL suggests folate deficiency Methotrexate, aminopterin and folinic acid (leucovorin) are chemotherapeutic agents whose molecular structures are similar to folate; therefore, the Senior Executive Compensation Analyst folate assay cannot be used for patients using these drugs. TSH reflex Free T4 (Not yet reviewed by provider) Interpretation: Performing Lab:[address] [address] Notes/Report: TSH reflex Free T4 1.06 0.32-4.0 uIU/mL MR head/brain wo con (Not ye t reviewed by provider) Interpretation: Performing Lab: Notes/Report: [address] [address] Magnetic Resonance Report Signed Patient: Efrain Pedro MR#: [id number] : 1940 Acct:[id number] Age/Sex: 84 / M ADM Date: 11/20/24 Loc: HO.MRI Attending Dr: Jessica Mcghee MD Ordering Physician: Jessica Mcghee MD Date of Service: 11/20/24 Procedure(s): MR head/brain wo con Accession Number(s): [id number] cc: Jessica Mcghee MD; Tony Greenwood MD [...] OV> 11/20/24826 DD/ 0725 TD/TT: 11/20/24 0800 Studio Technician: [place] [address] Magnetic Resonance Report Signed Patient: Efrain Pedro MR#: [id number] : 1940 Acct:[id number] Age/Sex: 84 / M ADM Date: 11/20/24 Loc: HO.MRI Attending Dr: Jessica Mcghee MD Ordering Physician: Jessica Mcghee MD Date of Service: 11/20/24 Procedure(s): MR head/brain wo con Accession Number(s): [id number] cc: Jessica Mcghee MD; Tony Greenwood MD [...] OV> 11/20/24826 DD/ 0725 TD/TT: 11/20/24 0800 Studio Technician: Reason For Referral Reason Transfer of Care [...] referral and would like it faxed to [phone] Referral Priority Routine Reason leg weakness gait training muscle strengthening Diagnosis 1 Peripheral polyneuro alexis (G62.9) Diagnosis 2 Weakness of lower ex tremity, unspecified laterality (R29.898) Referral Organization Tony Greenwood III, MD Referring Provider First Name Tony Referring Provider Last Name Krystyna Referring Provider Speciality Internal M edicine Referred Provider [facility] Physical Therapy Janusz Referred Provider Specialty Physical The rapist General Notes Jennifer Rachel FULL STACK SOFTWARE ENGINEER 09/28 11:27:33 AM > ref/demo/progress note faxed to [facility] PT dept Referral Priority Routine Referral Appointment Date 10/13/2024 Medications Medication SIG (Take, Route, Frequency, Duration) Notes Start Date End Date Status Finasteride 5 MG TAKE 1 TABLET BY DIAMOND TH EVERY DAY FOR 30 DAYS for 90 Active Vitamin D Active Zinc Skyler-Benzyl Aor-Btijg-Ppo Active Pantoprazole Sodium 40 MG TAKE 1 [...] External Active Ketoconazole 2 % 1 application Rn Clinical ally Once a day 03/15/2023 Active Immunizations [...] Problem Status W/U Status Risk Notes Problem 0042796 Former smoker (Z87.891) Active confirmed He is highly motivated not to smoke. He has a strategy for prevention of relapse and maintenance of abstinence. Problem 87347566 Hyperlipidemia (E78.5) Active confirmed His lipids have been well controlled. A fasting lipid profile was ordered prior to his next visit. No change in his medications was made. Problem 544644812 Overweight (E66.3) Active confirmed His body mass index is 26. We discussed diet and nutrition. We made a plan to lose weight at a rate of one half of a pound per week.He has lost 12 pounds since his last visit. Problem 66790530 Depression (F32.9) Active confirmed His depression is slightly worse after the surgery. He requested that I increase the bupropion to 450 mg a day. I have done so. This is a dose. He has taken successfully in the past. Problem 49780022 Simple chronic bronchitis (J41.0) Active confirmed Problem Osteoarthritis of hip (253768260) Osteoarthritis of hip, unspecified (M16.9) Active confirmed He occasionally has pain in his right hip that requires him to stop and rest frequently. He is scheduled for surgery to replace the right hip joint on January 08, [address] Rahman at [facility]. His blood work is adequate. His electrocardiogram is unremarkable. He has had clearance from pulmonary and cardiology. He is given general medical clearance for the procedure. His risk is greater than average because of his multiple comorbidities and coronary artery disease but is acceptable. He is granted, medical clearance. Problem 78157127 Coronary artery disease (I25.10) Active confirmed He has had no angina or diaphoresis or palpitations since his last visit. His coronary artery disease is stable. He is compliant with all his medications. His lipid profile is in its target range. He was seen by cardiology, November 19, 2022 and thought to be stable. Problem 365723831 BPH (benign prostatic hyperplasia) (N40.0) Active confirmed He rises from sleep once a night to urinate. No change in his medications was needed. Problem 00491059 Essential hypertension (I10) Active confirmed His blood press ure today is 99/69. No change in his regimen as needed. Problem 791466235 Peripheral vascular disease (I73.9) Active confirmed He has iliac artery and popliteal artery aneurysm, some of which have been repaired. He has claudication but is able to conduct all of the activities of daily living. His vascular surgeon has recommended correction of the remaining popliteal artery. The patient is not certain he wants to undergo that surgery at this time. Problem 250523958 Erectile dysfunction (N52.9) Active confirmed His current medications are effective. Problem 16299878 Memory loss (R41.3) Active confirmed He is mildly forgetful but is aware of it. It is likely vascular in origin. He remains able to care for himself at home living with his . He remains mentally competent to make decisions. Problem 69933635 Obstructive sleep apnea (G47.33) Active confirmed He continues to use his CPAP machine with good effect. He denies any recent daytime somnolence. Problem 639295367 Ascending aortic aneurysm (I71.2) Active confirmed He has a CT sca n of the chest and a consultation with a cardiac surgeon regularly at scheduled intervals. He has had no chest pain or dyspnea. 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 It is asymptomatic. Problem 061319158 History of skin cancer (Z85.828) Active confirmed No new skin lesions were noted on today's examination. Surveillance will continue. Problem 49743209 Hoarseness (R49.0) Active confirmed His voice was m uch more normal today. The urinalysis and throat physician has increased the pantoprazole and he is doing well. Problem Osteoarthritis of knee (912876332) Osteoarthritis of knees, bilateral (M17.0) Active confirmed There was mild crepitus of his knees. He has occasional knee pain but is able to conduct all of the activities of daily life. 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 Problem 411931808 Chronic GERD (K21.9) Active confirmed His chronic ref lux symptoms are well controlled with tcvn-clp-ojgdlnl medication. Problem 20392298 Peripheral polyneuropathy (G62.9) Active confirmed Vital Signs Heart Rate 71 /min 09/28/2024 Temperature 97.2 degrees Fahrenheit 09/28/2024 Blood pressure diastolic 58 mm Hg 09/28/2024 Height 76 in 09/28/2024 Blood pressure systolic 96 mm Hg 09/28/2024 Weight 215 lbs 09/28/2024 BMI 26.17 kg/m2 09/28/2024 Encounters Encounter Location Date Provider Diagnosis Tony Greenwood III, MD [address] [place] [address] [address] [address] 12/27/2023 Tony Greenwood Hyperlipidemia E78.5 ; Overweight E66.3 ; BPH (benign prostatic hyperplasia) N40.0 ; Essential hypertension I10 ; 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 ; Peripheral vascular disease I73.9 ; Ascending aortic aneurysm I71.2 ; Depression F32.9 ; Chronic GERD K21.9 ; Osteoarthritis of knees, bilateral M17.0 and Former smoker Z87.891 Tony Greenwood III, MD [address] [place] [address] [address] [address] 09/28/2024 Tony Greenwood Coronary artery dise ase [...] chronic reflux symptoms are well controlled with ztwy-xzl-hdftmog medication. 09/28/2024 BPH (benign prostati c hyperplasia) [...] chronic reflux symptoms are well controlled with mhfn-vsi-deodmhj medication. 12/27/2023 Former smoker (ICD-1 0 - [...] Order Date PROFILE, FASTING (COMPREHENSIVE METABOLI C) 09/20/2023 PROFILE, [...] PROFILE, FASTING (COMPREHENSIVE METABOLI C) 09/26/2020 PROFILE, RANDOM (COMPREHENSIVE METABOLIC ) 08/10/2022 PROFILE, RANDOM (COMPREHENSIVE METABOLIC ) 08/19/2019 HEMOGLOBIN A1C (GLYCOHEMOGLOBIN) 021 LIPID PANEL 03/04/2020 LIPID PANEL 09/26/2020 LIPID PANEL 08/10/2022 LIPID PANEL 08/19/2019 LIPID PANEL 05/21/2022 LIPID PANEL 12/18/2022 LIPID PANEL 05/18/2020 LIPID PANEL 06/28/2017 LIPID PANEL 10/05/2022 PSA, TOTAL 12/27/2023 PSA, TOTAL 09/20/2023 PSA, TOTAL 09/26/2020 PSA, TOTAL 08/10/2022 PSA, TOTAL 08/19/2019 PSA, TOTAL 03/28/2021 PSA, TOTAL 05/21/2022 PSA, TOTAL 12/18/2022 PSA, TOTAL 09/28/2024 PSA, TOTAL 05/18/2020 CBC w DIFF 10/05/2022 CBC w [...] Details Provider Name:Tony Gilletterne, 02/02/2025 03:00:00 PM, [address] [place] [address] [address], [address], Provider Name:Tony Greenwood, 09/29/2025 03:00:00 PM, [address] [place] [address] [address], [address], [address], Insurance Providers Payer Name Payer Address Payer Phone Subscriber Number Group Number Insured Name Patient Relationship to Insured Coverage Start Date Coverage End Date [employer] Medicare [address] [place] [phone] [id number] Efrain Pedro Self - patient is the insured 2 [employer] [address] [place] [phone] [id number] Efrain Pedro Self - patient is the insured Medical (General) History Medical History History ICD Code left popliteal artery aneurysm, repaired depression hyperlipidemia CAD- 1998 non-eluting stent RCA, [place] caracts scc right eyelid and forehead former smoker fractured metatarsal right-sided aortic arch 4.5 cm ascending aortic aneurysm diastasis rectus Surgical History Surgery Date(Month/Year) Right popliteal aneurism stent 06/2024 Right hip surgery 12/2022 left cheek lesion removal [facility] 2021 repair popliteal aneurysm 01/2004 colonoscopy,negative 09/2009 Hospitalization History Reason Date(Month/Year) stent placement 2017
--- NOTE | 2024-11-30 15:16 | MHC.OFFVIS ---
Vital Signs 11/30/24 15:17 Height 6 ft 4 in Weight 216 lb 0.848 oz BMI 26.3 BP 120/78 Blood Pressure Location Lt brachial Position Sitting Pulse 68 Intake Visit Reasons: 1 yr follow up/ Echo Intake Note: 1 year follow-up with ekg after echo feeling good Electric Sealing Machine Operator Required: No Allergies N.K.D.A. Allergy (Uncoded 11/16/24 11:20) Unknown Medication List - Last Reconciled 11/30/24 by Jhonathan Gama MD amoxicillin 2,000 mg (4 x 500 mg) PO ONCE 1 day aspirin (Adult Aspirin Regimen) 162 mg PO DAILY atorvastatin 80 mg PO BEDTIME bupropion HCl XL 450 mg PO BEDTIME [calcium ] celecoxib 200 mg PO DAILY cholecalciferol (vitamin D3) (Vitamin D3) 25 mcg PO BEDTIME clopidogrel 75 mg PO DAILY CPAP (CPAP Machine/Device) As directed docusate sodium (Colace) 100 mg PO BEDTIME finasteride 5 mg PO DAILY fluticasone furoate 100 mcg/actuation (Arnuity Ellipta) 1 inh inhalation DAILY 30 days gabapentin 400 mg PO BEDTIME 90 days metoprolol succinate ER 50 mg PO BEDTIME multivitamin 1 tab PO BEDTIME neomycin-polymyxin B-dexameth 3.5mg/mL-10,000 unit/mL-0.1 % 1 drp ophthalmic (eye) BID PRN pantoprazole 40 mg PO BEDTIME PRN umeclidinium-vilanterol 62.5-25 mcg/actuation (Anoro Ellipta) 1 ea inhalation DAILY vitamin B complex (B Complex-Vitamin B12 tablet) 1 tab PO BEDTIME vitamin E (dl, acetate) 180 mg PO DAILY [zinc ] HPI Comments Details: Efrain comes for follow-up. He has been doing well from cardiac perspective. He has no symptoms of angina. However his activity level as reduced. He has developed peripheral neuropathy with limits his activity due to balance issues. He has not had any significant falls. Denies any orthopnea, PND, leg edema. Most recent echocardiogram shows stable ascending aortic aneurysm at 4.5 cm. He takes all his medications. [facility] Medical History Cognitive impairment PLMD (periodic limb movement disorder) CAD (coronary artery disease) Complex sleep apnea syndrome Wears hearing aid in both ears Personal history of nicotine dependence MARISOL on CPAP HTN (hypertension) Fracture of left distal radius Aortic aneurysm Pulmonary nodules COPD (chronic obstructive pulmonary disease) Osteoarthritis of right hip Cataracts, bilateral CAD (coronary artery disease) Hyperlipidemia Depression Surgical History Hx of vascular surgery History of heart artery stent (~1997) History of cataract surgery (~2009) History of colonoscopy Family History Mother No problems noted. Father No problems noted. 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 [facility]cp[facility] handed Review of Systems Const Denies chills, Denies fatigue, Denies fever(s), Denies frequent falls, Denies weakness, Denies weight gain and Denies weight loss ENT Denies dizziness Card Denies chest pain, Denies leg edema, Denies lightheadedness, Denies palpitations, Denies dyspnea, Denies dyspnea on exertion, Denies orthopnea and Denies other (loss of consciousness) Resp Denies cough, Denies dyspnea and Denies dyspnea on exertion GI Denies hematochezia and Denies change in stool character Musc Denies abnormal gait, Denies muscle weakness, Denies numbness, Denies radiating pain into limb and Denies tingling Neuro Denies abnormal gait, Denies dizziness, Denies frequent falls, Denies numbness, Denies tingling and Denies weakness Endo Denies fatigue and Denies palpitations Physical Exam Vital Signs: Last Vital Signs Pulse 68 11/30/24 15:17 BP 120/78 11/30/24 15:17 BMI result Body Mass Index 26.3 Const General: cooperative, comfortable, alert, awake and well groomed Nutritional Appearance: average body habitus Orientation/consciousness: patient oriented x3 Limitations: no limitations Neck Neck: Yes trachea midline, Yes supple and Yes no JVD Resp Effort & Inspection: normal respiratory effort Auscultation: clear to auscultation bilaterally Cardio Jugular venous distension: no JVD Palpation: normal PMI Rate: regular rate Rhythm: regular rhythm Heart sounds: S1 normal heart sound present and S2 normal heart sound present Skin General skin exam: no rashes or lesions noted and ecchymosis Neuro General: patient oriented x3 and no focal motor deficits Extrem General: Yes no clubbing, cyanosis or edema Psych Appearance: grossly normal Office Procedures EKG Details: EKG shows normal sinus rhythm with PACs at 68 beats per minute without any significant Q-waves 87915-Wqhjzibiqiowadwva, Complete Assessment & Plan Assessment & Plan (1) CAD (coronary artery disease): Code(s): I25.10 - Atherosclerotic heart disease of qagan tayagungin coronary artery without angina pectoris Category: Medical Plan: CAD with without any recurrent anginal symptoms at current activity level. Stable coronary artery disease. At this point time no change in therapy. Continue lifelong aspirin therapy and clopidogrel therapy given his diffuse vascular disease. Continue aggressive risk factor modification. Continue metoprolol therapy as an antianginal therapy and poor blood pressure control. Which is well optimized. Continue high-intensity statin therapy with target goal LDL less than 70 mg/dL. Encouraged to maintain activity level as tolerated with fall prevention techniques. (2) Aortic aneurysm: Comment: Based on previous CT scans. Code(s): I71.9 - Aortic aneurysm of unspecified site, without rupture Category: Medical Plan: Ascending aortic aneurysm which is moderate which has remained stable. He has not had any symptoms related to it. Continue aggressive vascular risk factor modifications above. Continue high-intensity statin therapy. Continue Lopressor therapy with adequate blood pressure control. Target goal blood pressure less than 130/80. Follow up in the clinic in 1 year's time after echocardiogram. Thank you for allowing me to partake in his care Orders: Orders CA echo transthoracic complete 1 Year I71.9 - Aortic aneurysm of unspecified site, without rupture Coding Level of Care Code Est Pt Level 4 (37828) Complex EM visit Add On G2211 Diagnoses CAD (coronary artery disease) I25.10 Aortic aneurysm I71.9 CPT Codes EKG - CPT: 30004-Ijbolgftanqexxqrb, Complete ([id number])
[2024-11-30 15:17] VITALS: BP 120/78; PULSE 68; BMI 26.3
== END 2024-11-30 15:49 | disposition home or self-care (01) ==
LOC: HO.HCS 15:10
PROVIDERS: PCP Internal Medicine Medical Oncology; Visit Provider Internal Medicine Cardiovascular Disease
DX: I25.10 Atherosclerotic heart disease of native coronary artery without angina pectoris (principal); I71.9 Aortic aneurysm of unspecified site, without rupture
CPT/HCPCS: 93010; 99214; G2211

== ENCOUNTER → 2024-11-30 15:09 | Outpatient (BNVA) | payer MEDICARE, OTHER, SELFPAY | PROVIDERS: PCP Internal Medicine Medical Oncology; Visit Provider Internal Medicine Cardiovascular Disease | DX: I25.10 Atherosclerotic heart disease of native coronary artery without angina pectoris (principal); I71.9 Aortic aneurysm of unspecified site, without rupture | CPT/HCPCS: 93005; 99212 ==

== ENCOUNTER 2024-12-16 10:14 | Outpatient (AMB) | payer MEDICARE, SELFPAY ==
--- NOTE | 2024-12-16 10:41 | MHC.OFFVIS ---
Intake Visit Reasons: 1Y/PSA/PVR Intake Note: Patient is present for 1Y/PSA/PVR Urology Medication:VITAMIN B12,TAMSULOSIN Antibiotic Allergy:NONE Blood Thinner:ASPIRIN Last PVR:106ML'S Todays PVR:115ML'S Burial Vault Maker Required: No Allergies N.K.D.A. Allergy (Uncoded 12/16/24 10:44) Unknown HPI Comments Details: Jamee is a pleasant male. He is a patient of Dr. Greenwood. He seen for the following urologic conditions - lower urinary tract symptoms - erectile dysfunction 1 year follow-up Prior PVR 100 cc Current PVR 115 UA normal Longstanding sleep apnea with nocturia 3-4 times per night Twelve month follow-up Lower urinary tract symptoms Successfully managed with finasteride for many years PSA - 04/04 1.2, 08/06 1.6, 01/04 1.5, 10/06 1.5 PFSH Medical History Cognitive impairment PLMD (periodic limb movement disorder) CAD (coronary artery disease) Complex sleep apnea syndrome Wears hearing aid in both ears Personal history of nicotine dependence MARISOL on CPAP HTN (hypertension) Fracture of left distal radius Aortic aneurysm Pulmonary nodules COPD (chronic obstructive pulmonary disease) Osteoarthritis of right hip Cataracts, bilateral CAD (coronary artery disease) Hyperlipidemia Depression Surgical History Hx of vascular surgery History of heart artery stent (~1997) History of cataract surgery (~2009) History of colonoscopy Family History Mother No problems noted. Father No problems noted. 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 [employer] [facility] [facility] Hospital[facility]wtouebo-yipphtk-lccro handed Review of Systems Const Denies chills and Denies fever(s) Card Reports no additional complaints and Denies syncope Resp Denies cough GI Denies abdominal pain and Denies heartburn Reports as per HPI and Denies change in libido Neuro Denies syncope Psych Denies change in libido Endo Denies change in libido Physical Exam Const General: cooperative, healthy appearing, comfortable and no acute distress Orientation/consciousness: patient oriented x3 HEENT Face and sinus: Yes normal facial exam Mouth: moist mucous membranes Neck Neck: Yes normal visual inspection, Yes full ROM and Yes trachea midline Chest Chest palpation & inspection: normal inspection of the chest Resp Effort & Inspection: normal respiratory effort, able to speak in complete sentences and no respiratory distress GI Inspection: Yes normal to inspection Back/Spine/Pelvis Cervical Spine: normal cervical lordosis Thoracic/Lumbar Spine: thoracic and lumbar spine normal to inspection Skin General skin exam: no rashes or lesions noted Neuro General: patient oriented x3, gait normal, tone normal and moves all extremities Extrem General: Yes normal to inspection and Yes capillary refill normal Office Procedures Post Void Residual Post Residual Void Post Void Residual (PVR): 115 44223-Czfd Void Residual by ultrasound Assessment & Plan Assessment & Plan (1) Enlarged prostate: Code(s): N40.0 - Benign prostatic hyperplasia without lower urinary tract symptoms Category: Medical (2) Nocturia: Code(s): R35.1 - Nocturia Category: Medical Plan 12 month follow-up Patient Instructions: This note is constructed using voice recognition software. While every effort has been made to ensure accuracy cooker pie filling errors may have been included. Imaging studies, laboratory and physical exam results were discussed and reviewed in detail. No major barriers to patient understanding were identified. An opportunity to ask questions regarding the treatment plan was provided. All questions were answered. The patient expressed understanding and agreement with the above treatment plan. The patient is aware they should contact our office by phone for worsening of their current condition or the appearance of new urologic symptoms. Compliance is encouraged with any medications and followup testing that is ordered. It is a privilege to participate in the urologic care of your patient. If you have any questions or concerns regarding treatment for the above conditions, or other urologic issues, please do not hesitate to contact me. The office telephone contact is [phone]. Sincerely, Dr Luther Whitmore MD, [facility] - Urology Compassionate Specialist Care for the Genitourinary System Coding Level of Care Code Est Pt Level 3 (73162) Diagnoses Enlarged prostate N40.0 Nocturia R35.1 CPT Codes Post Residual Void - PVR CPT Code: 31863-Afwj Void Residual by ultrasound ([id number])
--- OUTSIDE RECORDS SUMMARY | 2024-12-16 10:53 | XMS_ITS ---
Author Organization Tony Greenwood III, MD Address [address] [place] [address] DR [address]ENZ [place] [address] Care Team Providers Care Bull Gang Worker Name Role Phone Tony Greenwood Primary Care [...] External Active Ketoconazole 2 % 1 application Club Concierge ally Once a day 03/15/2023 Active Doxycycline [...] C Active Vitamin D Active Zinc Skyler-Benzyl Jid-Vrcez-Rhd Active Antioxidant Active CoQ-10 Active Social History [...] Provider Diagnosis Tony Greenwood III, MD [address] [place] [address] [place] [address] 12/27/2023 Tony Greenwood Hyperlipidemia E78.5 ; Overweight [...] chronic reflux symptoms are well controlled with ttjn-pem-rwujjpg medication. 12/27/2023 Osteoarthritis of knees, bilateral (ICD-10 [...] % External Ketoconazole 2 % 1 application Club Concierge ally Once a day 03/15/2023 Doxycycline Hyclate [...] day Vitamin C Vitamin D Zinc Skyler-Benzyl Wcb-Ubckk-Yly Antioxidant CoQ-10 Pending Test Test Name Order Date PROFILE, FASTING (COMPREHENSIVE METABOLI C) 12/27/2023 PSA, TOTAL 12/27/2023 CBC WITH AUTO DIFF 12/27/2023 Lipid Panel 12/27/2023 Referrals Referral Date Details 12/27/2023 12/27/2023, Transfer of Care Consult and Treat, (Jad) Luther Whitmore Next Appt Details Follow Up: As Scheduled , Re ason: OV, Annual Exam Provider Name:Tony Greenwood, 02/02/2025 03:00:00 PM, [address] [place] [address] [address], [place], [address], Provider Name:Tony Greenwood, 09/29/2025 03:00:00 PM, [address] [place] [address] [address], [place], [address], Progress Notes * Efrain PEDRO IIDOB: (83 yo M)Acc No.[id number]:12/27/2023 Progress Notes Patient:?PedroEfrain valentine Provider:?Tony Greenwood MD :1940???Age:83 Y???Sex:Male Nuno e:12/27/2023 Address:[address] [place] [address], [place] [id number] Subjective: * Chief Complaints: * ???Popliteal artery [...] 09/2009repair popliteal aneurysm 01/2004left cheek lesion removal [facility] ight hip surgery 12/2022 * Hospitalization/Major [...] smoker ???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 He was [facility]. He is now working at the [employer]. * Medications:?TakingVitamin C Vitamin D Zinc Skyler-Benzyl Bqp-Yjxtd-Lgc Antioxidant CoQ-10 Doxycycline Hyclate 100 MG Capsule [...] C Taking Vitamin D Taking Zinc Skyler-Benzyl Osc-Prauu-Psc Taking Antioxidant Taking CoQ-10 Taking Doxycycline Hyclate [...] chronic reflux symptoms are well controlled with aybp-poo-xbqnqal medication.?10.?Osteoarthritis of knees, bilateral - M17.0, There [...] urged to quit.?12/27/2023 * Follow Up:?As Scheduled ([place] son: OV, Annual Exam) * Images: * Sign off status: Completed true * Provider:?Tony Greenwood MD Date:?12/13 Generated for Printlouise buckley/Jose/eTransmitting on:?12/16/2024 10:53 AM EDT History and Physical Notes * HPI (History of Present Illness) Category Sub-Category Detail Notes COVID-19 Screening Questions Have you had any new onset fever, chills, cough, congestion, sore throat, shortness of breath, muscle aches?: No Have you been exposed to the virus withi n the last 10 days?: No Have you travelled internationally in [facility] last 10 days?: No Have you been [...] Not leandra 12/27/2023 Tony Greenwood Alexander , ([place]) Transfer of Care Consult and Treat
== END 2024-12-16 11:05 | disposition home or self-care (01) ==
LOC: HO.HUSH 10:16
PROVIDERS: PCP Internal Medicine Medical Oncology; Visit Provider Urology
DX: N40.0 Benign prostatic hyperplasia without lower urinary tract symptoms (principal); R35.1 Nocturia; Z13.9 Encounter for screening, unspecified
CPT/HCPCS: 99213

== ENCOUNTER → 2024-12-16 10:14 | Outpatient (BNVA) | payer MEDICARE, SELFPAY | PROVIDERS: PCP Internal Medicine Medical Oncology; Visit Provider Urology | DX: N40.1 Benign prostatic hyperplasia with lower urinary tract symptoms (principal); R35.1 Nocturia | CPT/HCPCS: 51798; 81003; 99212 ==

== ENCOUNTER 2025-02-12 09:52 | Outpatient (REF) | payer MEDICARE, SELFPAY ==
--- OUTSIDE RECORDS SUMMARY | 2025-01-18 11:36 | XMS_ITS ---
Author Organization Tony Greenwood III, MD Address [address] [place] [address] [place] [address] Care Team Providers Care General Supervisor Name Role Phone Tony Greenwood Primary Care Provider Medications Medication SIG (Take, Route, Frequency, Duration) Notes Start Date End Date Status Oxnejqsw-Axyytmllm-Yquijpy h 0.1 % 1 drop into affected eye Ophthalmic two times a day for 7 days 01/18/2025 Active Encounters Encounter Location Date Provider Diagnosis Tony Greenwood III, MD [address] [place] [address] [place] [address] 01/18/2025 Tony Greenwood Plan Of Treatment Medication Medication Name Sig Start Date Stop Date Notes Uiekzybf-Mcmnhkode-Mrebzfuq 0.1 % 1 drop into affected eye Ophthalmic two times a day for 7 days 01/18/2025 Next Appt Details Provider Name:Tony Greenwood, 02/15/2025 10:30:00 AM, [address] [place] [address] [place], [address], Provider Name:Tony Greenwood, 09/29/2025 03:00:00 PM, [address] [place] [address] [place], [address], Progress Notes * Efrain PEDRO IIDOB: (84 yo M)Acc No.[id number]:01/18/2025 Patient: Efrain WALLER II :1940 A ge:84 Y S ex:Male Address:[address] [place] [address], [place] [address] * Refills Start Eehcffpe-Iolgxtoko-Qnulcrtu Suspension, 0.1 %, Ophthalmic, 0.7 ML, 1 drop into affected eye, two times a day, 7 days, Refills=1 * true * Date: Generated for Oralia buckley/Jose/Joeitting on: 0 02/12/2025 10:04 AM EDT
--- OUTSIDE RECORDS SUMMARY | 2025-02-12 10:04 | XMS_ITS | Encounter Summary ---
Author Organization [facility] Address [address] [place] [address] Care Team Providers Care Last Puller Name Role Phone Tony Greenwood MD Primary Care Provider Joanna gomes Encounter Details Date Type Department Care Team Description 09/17/2017 Transfer Records Medical Records [address] [place] [id number] Abstract, Provider Social History Tobacco Use Types Packs/Day Years Used Date Smoking Tobacco: Former Cigarettes 1 28 0 09/16/1977 - 11/16/2014 Smokeless Tobacco: Never Sex Assigned at Date Recorded Not on file documented as of this encounter Plan of Treatment Not on file documented as of this encounter Visit Diagnoses Not on filedocumented in this encounter Care Teams Last Puller Relationship Specialty Start Date End Date Tony Greenwood MD PCP - General Oncology/Hematology 09/09/17 documented as of this encounter
--- OUTSIDE RECORDS SUMMARY | 2025-02-12 10:04 | XMS_ITS | Clinical Summary ---
Author Organization [facility] Address [address] [place] [phone] Phone Care Team Providers Care Pan Dumper Name Role Phone Tony Greenwood MD Primary Care Provider [phone] Social History Tobacco Use Types Packs/Day Years Used Date Smoking Tobacco: Never Assessed Sex and Gender Information Value Date Recorded Sex Assigned at Not on file Legal Sex Male 7:24 PM EST Gender Identity Not on file Sexual Orientation Not on file Plan of Treatment Not on file Medical Devices Not on file Insurance [employer] PPO MEDICARE REPLACEMENT [facility] MEDICARE REPLACEMENT [facility] MEDICARE REPLACEMENT Member Subscriber Plan / Payer (Ef fective 2017-Present) Name:Zach Pedro Member ID:[id number] Relation to Subscriber:Self Name:ZACH PEDRO Subscriber ID:[id number] Payer ID:[id number] (NAIC) Type:Medicare Address: [address] [place] [address] [facility] AETNA O MEDICARE REPLACEMENT [facility] AET[employer] O MEDICARE REPLACEMENT [facility] AETNA O MEDICARE REPLACEMENT [facility] AETNA O MEDICARE REPLACEMENT [facility] AETNA O MEDICARE REPLACEMENT [facility] Care Teams Pan Dumper Relationship Specialty Start Date End Date Tony Greenwood MD [address] [place] [address] [id number] PCP - General Medical Oncology 11/07/17 Additional Source Comments The information contained in this document represents components of the legal health record. It is not the complete legal health record.[facility]
--- OUTSIDE RECORDS SUMMARY | 2025-02-12 10:04 | XMS_ITS | Encounter Summary ---
Author Organization [facility] Address [address] [place] [address] [address] [place] [address] Care Team Providers Care Head Esthetician Name Role Phone Unavailable Primary Care Provider [...]
[2025-02-12 10:09] LABS: MANUAL DIFF FLAG NO
[2025-02-12 10:57] LABS: Hematocrit 42.1 % (42.0-52.0); Hemoglobin 14.2 g/dl (14.0-18.0); Imm Gran Abs Auto 0.02 X10*3/uL (0.00-0.03); Imm Gran Pct Auto 0.3 % (0.0-0.4); Lymphocytes Absolute Auto 1.4 X10*3/uL (1.2-4.9); Mean Corpuscular HGB Conc 33.7 g/dl (31.0-36.0); Mean Corpuscular Hemoglobin 33.1 pg (27.0-33.0); Mean Corpuscular Volume 98.1 fL (80.0-98.0); NRBC Abs Auto 0.000 X10*3/uL (0.0-0.012); NRBC Pct Auto 0.0 /100WBC (0.0-0.2); Platelet Count 261 X10*3/uL (160-400); Red Blood Count 4.29 X10*6/uL (4.60-5.80); White Blood Count 6.9 X10*3/uL (4.8-10.8)
[2025-02-12 11:33] LABS: Prostate Specific Antigen 1.36 ng/mL (<0.05-4.0)
[2025-02-12 11:35] LABS: Alanine Aminotransferase 34 U/L (0-40); Albumin Level 4.4 g/dL (3.5-5.0); Alkaline Phosphatase 66 U/L (39-117); Anion Gap 10 (12-20); Aspartate Amino Transferase 32 U/L (5-37); Blood Urea Nitrogen 28 mg/dL (9-16); Calcium 9.4 mg/dL (8.4-10.2); Carbon Dioxide 30 mmol/L (22-29); Chloride 105 mmol/L (96-108); Cholesterol 124 mg/dL (<200); Estimated Glomerular Filt Rate 44; HDL Cholesterol 32 mg/dL (>40); Potassium 5.0 mmol/L (3.3-5.1); Sodium 140 mmol/L (135-145); Total Protein 7.1 g/dL (6.5-8.0); Triglycerides 119 mg/dL (<150)
== END 2025-02-12 09:53 | disposition home or self-care (01) ==
LOC: HO.LAB 09:52
PROVIDERS: PCP Internal Medicine Medical Oncology; Visit Provider Internal Medicine Medical Oncology
DX: Z00.00 Encounter for general adult medical examination without abnormal findings (principal); Z12.5 Encounter for screening for malignant neoplasm of prostate; Z13.220 Encounter for screening for lipoid disorders
CPT/HCPCS: 36415; 80053; 80061; 84153; 85025

== ENCOUNTER 2025-03-18 13:18 | Outpatient (AMB) | payer MEDICARE, OTHER, SELFPAY ==
--- OUTSIDE RECORDS SUMMARY | 2025-01-18 07:46 | XMS_ITS ---
Author Organization Tony Greenwood III, MD Address [address] [place] [address] [place] [address] Care Team Providers Care Tool Filer Name Role Phone Tony Greenwood Primary Care Provider Medications Medication SIG (Take, Route, Frequency, Duration) Notes Start Date End Date Status Pcukuurv-Rtbbfbiok-QD 3.5-87836-9 one drop each eye Ophthalmic twice a day for 7 days 01/18/2025 Active Encounters Encounter Location Date Provider Diagnosis Tony Greenwood III, MD [address] [place] [address] [place] [address] 01/18/2025 Tony Greenwood Plan Of Treatment Medication Medication Name Sig Start Date Stop Date Notes Uqlsnvlv-Nrjyuprre-PV 3.5-08751-2 one drop each eye Ophthalmic twice a day for 7 days 01/18/2025 Next Appt Details Provider Name:Tony Greenwood, 03/29/2025 10:30:00 AM, [address] [place] [address] [place], [address], Provider Name:Tony Greenwood, 09/29/2025 03:00:00 PM, [address] [place] [address] [place], [address], Progress Notes * Efrain PEDRO IIDOB: (84 yo M)Acc No.[id number]:01/18/2025 Patient: Efrain WALLER II :1940 A ge:84 Y S ex:Male Address:[address] [place] [address], [place] [address] * Refills Start Aubapkzt-Betxsogfj-GN Suspension, 3.5-82655-9, Ophthalmic, 7.5 Milliliter, one drop each eye, twice a day, 7 days, Refills=1 * true * Date: Generated for Oralia buckley/Jose/Joeitting on: 0 03/18/2025 02:34 PM EDT
--- OUTSIDE RECORDS SUMMARY | 2025-01-18 11:36 | XMS_ITS ---
Author Organization Tony Grenewood III, MD Address [address] [place] [address] [place] [address] Care Team Providers Care Roll Tender Name Role Phone Tony Greenwood Primary Care Provider Medications Medication SIG (Take, Route, Frequency, Duration) Notes Start Date End Date Status Tpvwbbpa-Uufrbhtoi-Mwpyrwg h 0.1 % 1 drop into affected eye Ophthalmic two times a day for 7 days 01/18/2025 Active Encounters Encounter Location Date Provider Diagnosis Tony Greenwood III, MD [address] [place] [address] [place] [address] 01/18/2025 Tony Greenwood Plan Of Treatment Medication Medication Name Sig Start Date Stop Date Notes Lxoeyzro-Zxfwbrppo-Egdgwvgs 0.1 % 1 drop into affected eye Ophthalmic two times a day for 7 days 01/18/2025 Next Appt Details Provider Name:Tony Greenwood, 03/29/2025 10:30:00 AM, [address] [place] [address] [place], [address], Provider Name:Tony Greenwood, 09/29/2025 03:00:00 PM, [address] [place] [address] [place], [address], Progress Notes * Efrain PEDRO IIDOB: (84 yo M)Acc No.[id number]:01/18/2025 Patient: Efrain WALLER II :1940 A ge:84 Y S ex:Male Address:[address] [place] [address], [place] [address] * Refills Start Wsumcefw-Fuhgpwlsi-Ephirttw Suspension, 0.1 %, Ophthalmic, 0.7 ML, 1 drop into affected eye, two times a day, 7 days, Refills=1 * true * Date: Generated for Oralia buckley/Jose/Joeitting on: 0 03/18/2025 02:34 PM EDT
--- OUTSIDE RECORDS SUMMARY | 2025-02-02 13:00 | XMS_ITS ---
Author Organization Tony Greenwood III, MD Address [address] [place] [address] [place] [address] Care Team Providers Care Postdoctoral Scientist Name Role Phone Tony Greenwood Primary Care Provider [phone] REASON FOR VISIT follow up Encounters Encounter Location Date Provider Diagnosis Tony Greenwood III, MD [address] [place] [address] [place] [address] 02/02/2025 Tony Greenwood Plan Of Treatment Next Appt Details Provider Name:Tony Greenwood, 03/29/2025 10:30:00 AM, [address] [place] [address] [place], [address], Provider Name:Tony Greenwood, 09/29/2025 03:00:00 PM, [address] [place] [address] [place], [address], Progress Notes * Efrain PEDRO IIDOB: (85 yo M)Acc No.[id number]:02/02/2025 Progress Notes Patient: Jayashree BERRIOS Efrain Garcia II Provider: Tyrone Greenwood MD :1940 A ge:84 Y S ex:Male Date:02/02/2025 Address:[address] [phone] Subjective: * Chief Complaints: * 1 [...] 0 02/02/2025 Generated for Oralia buckley/Jose/Joeitting on: 0 03/18/2025 02:35 PM EDT
--- OUTSIDE RECORDS SUMMARY | 2025-02-15 06:30 | XMS_ITS ---
Author Organization Tony Greenwood III, MD Address [address] [place] [address] DR BENZ [address] [place] [phone] Care Team Providers Care Manager Golf Name Role Phone Tony Greenwood Primary Care [...] TABLE T BY MOUTH EVERY DAY Active Riodonld-Xplsajetk-Zbrvixhy 0.1 % 1 drop into affected eye [...] DAY FOR 30 DAYS Active Zinc Skyler-Benzyl Rpx-Kpaiv-Uxc Active CoQ-10 Active Gabapentin 400 MG 1 [...] Provider Diagnosis Tony Greenwood III, MD [address] [place] [address] DR [place], [place] [phone] 02/15/2025 Tony Greenwood Hyperlipidemia E78.5 ; Popliteal [...] 1 TABLE T BY MOUTH EVERY DAY Carwcwxr-Wzgodqgae-Oyjwpsvx 0.1 % 1 drop into affected eye Ophthalmic two times a day 01/18/2025 Ciclopirox Olamine 0.77 % External Metoprolol Succinate ER 50 MG TAKE 1 TAB LET BY MOUTH DAILY Oral Anoro Ellipta 62.5-25 MCG/ACT Inhalation CeleBREX 100 MG 1 capsule with food Orally Once a day Finasteride 5 MG TAKE 1 TABLET BY DIAMOND TH EVERY DAY FOR 30 DAYS Zinc Skyler-Benzyl Qlf-Gitvl-Gvn CoQ-10 Gabapentin 400 MG 1 capsule Orally Once a day Pending Test Test Name Order Date PROFILE, FASTING (COMPREHENSIVE METABOLI C) 02/15/2025 CBC w DIFF 02/15/2025 SED RATE (ESR) 02/15/2025 Lipid Panel 02/15/2025 Vitamin D 25-OH Total 02/15/2025 Next Appt Details Follow Up: 6 Weeks, Reason: OV review labs Provider Name:Tony Greenwood, 03/29/2025 10:30:00 AM, [address] [place] [address] [address], [place], [phone], Provider Name:Tony Greenwood, 09/29/2025 03:00:00 PM, [address] [place] [address] [place], [phone], Progress Notes * Efrain PEDRO IIDOB: (85 yo M)Acc No.[id number]:02/15/2025 Progress Notes Patient: Efrain WALLER II Provider: Tyrone Greenwood MD :1940 A ge:85 Y S ex:Male Date:02/15/2025 Address:[address] [place] [address] [place], [phone] Subjective: * Chief Complaints: * P eripheral [...] 09/2009repair popliteal aneurysm 01/2004left cheek lesion removal [facility] 2Right hip surgery 12/2022Right popliteal aneurism [...] 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 He was born [facility]. He is now working at the [employer]. * Medications: T akingFiber Alpha Lipoic [...] DAYS Vitamin C Vitamin D Zinc Skyler-Benzyl Uny-Rnkck-Nmy CoQ-10 Gabapentin 400 MG Capsule 1 capsule [...] TAKE 1 TABLET BY MOUTH EVERY DAY Jbfdlbtp-Lslmrfsfn-Gwclrwcr 0.1 % Suspension 1 drop into affected [...] C Taking Vitamin D Taking Zinc Skyler-Benzyl Wwu-Jggzy-Xdf Taking CoQ-10 Taking Gabapentin 400 MG Capsule [...] 1 TABLET BY MOUTH EVERY DAY Taking Soekctcl-Jgdjsgjep-Ilrodopi 0.1 % Suspension 1 drop into affected eye Ophthalmic two times a day DiscontinuedAntioxidant Fluticasone Propionate 0.005 % Ointment 1 application to affected area Externally Twice a day Ketoconazole 2 % Cream 1 application Externally Once a day Nonadpqj-Qesvtwgpm-HC 3.5-91750-0 Suspension one drop each eye Ophthalmic twice a day Medication List reviewed and reconciled with the patientDiscontinued Antioxidant Discontinued Fluticasone Propionate 0.005 % Ointment 1 application to affected area Externally Twice a day Discontinued Ketoconazole 2 % Cream 1 application Externally Once a day Discontinued Rqrwhlzd-Nhsdoinql-AQ 3.5-23806-4 Suspension one drop each eye Ophthalmic twice [...] ontinue Vitamin D; C ontinue Zinc Skyler-Benzyl Zef-Sjnpz-Ofj; C ontinue CoQ-10; C ontinue Gabapentin Capsule, [...] TABLET BY MOUTH EVERY DAY; C ontinue Pkvpmwks-Sfkuckaxh-Kajwuher Suspension, 0.1 %, 1 drop into affected [...] true * Provider: Tyrone Greenwood MD Date: 02/15/2025 Generated for Oralia buckley/Jose/eTransmitting on: 0 03/18/2025 02:34 PM EDT History and Physical Notes * [...]
--- OUTSIDE RECORDS SUMMARY | 2025-02-15 10:49 | XMS_ITS ---
Author Organization Tony Greenwood III, MD Address [address] [place] [address] [place] [address] Care Team Providers Care Line Maintainer Name Role Phone Tony Greenwood Primary Care Provider REASON FOR VISIT F/U appt with Dr Dee Encounters Encounter Location Date Provider Diagnosis Tony Greenwood III, MD [address] [place] [address] [place] [address] 02/15/2025 Tony Greenwood Plan Of Treatment Next Appt Details Provider Name:Tony Greenwood, 03/29/2025 10:30:00 AM, [address] [place] [address] [place], [address], Provider Name:Tony Greenwood, 09/29/2025 03:00:00 PM, [address] [place] [address] [place], [address], Progress Notes * Efrain PEDRO IIDOB: (85 yo M)Acc No.[id number]:02/15/2025 Patient: Jayashree BERRIOSEfrain II :1940 A ge:85 Y S ex:Male Address:[address] [address] * true * Date: Generated for Printi ng/Faxing/eTransmitting on: 0 03/18/2025 02:35 PM EDT
[2025-03-18 13:20] VITALS: BP 120/72; PULSE 64; BMI 26.3
--- NOTE | 2025-03-18 13:20 | A.OFFVIS_ITS ---
Vital Signs 03/18/25 13:20 Height 6 ft 4 in Weight 216 lb 0.848 oz BMI 26.3 BP 120/72 Blood Pressure Location Lt brachial Position Sitting Pulse 64 Intake Visit Reasons: f/u having lightheadness ? med's Intake Note: Follow-up c/o fatigue and little lightheadedness ? Med's switched metoprolol to PM Allergies N.K.D.A. Allergy (Uncoded 12/16/24 10:44) Unknown Medication List - Last Reconciled 03/18/25 by Jhonathan Gama MD amoxicillin 2,000 mg (4 x 500 mg) PO ONCE 1 day Anoro Ellipta 62.5-25 mcg/actuation (umeclidinium-vilanterol) 1 ea inhalation DAILY NS aspirin (Adult Aspirin Regimen) 162 mg PO DAILY atorvastatin 80 mg PO BEDTIME bupropion HCl XL 450 mg PO BEDTIME [calcium ] celecoxib 200 mg PO DAILY cholecalciferol (vitamin D3) (Vitamin D3) 25 mcg PO BEDTIME clopidogrel 75 mg PO DAILY CPAP (CPAP Machine/Device) As directed docusate sodium (Colace) 100 mg PO BEDTIME finasteride 5 mg PO DAILY fluticasone furoate 100 mcg/actuation (Arnuity Ellipta) 1 inh inhalation DAILY 30 days gabapentin 400 mg PO BEDTIME 90 days magnesium 200 mg PO DAILY metoprolol succinate ER 50 mg PO BEDTIME multivitamin 1 tab PO BEDTIME neomycin-polymyxin B-dexameth 3.5mg/mL-10,000 unit/mL-0.1 % 1 drp ophthalmic (eye) BID PRN pantoprazole 40 mg PO BEDTIME PRN vitamin B complex (B Complex-Vitamin B12 tablet) 1 tab PO BEDTIME vitamin E (dl, acetate) 180 mg PO DAILY [zinc ] HPI Comments Details: Efrain comes for follow-up. He said more recently he has been noticing symptoms of lightheadedness especially when he is not drink much fluid or eaten and when doing gets some lead get lightheaded. He has not had any syncopal episodes recently. He denies any exertional chest pain. Does complaining of some fatigue. Takes his medications regularly but has switched his metoprolol to nighttime. Denies any anginal symptoms. Denies any heart failure symptoms. Denies any prolonged palpitation irregular heartbeat [facility] Medical History (Updated 03/18/25 @ 13:44 by Jhonathan Gama MD) Cognitive impairment PLMD (periodic limb movement disorder) CAD (coronary artery disease) Complex sleep apnea syndrome Wears hearing aid in both ears Personal history of nicotine dependence MARISOL on CPAP HTN (hypertension) Fracture of left distal radius Aortic aneurysm Pulmonary nodules COPD (chronic obstructive pulmonary disease) Osteoarthritis of right hip Cataracts, bilateral CAD (coronary artery disease) Hyperlipidemia Depression Surgical History Hx of vascular surgery History of heart artery stent (~1997) History of cataract surgery (~2009) History of colonoscopy Family History Mother No problems noted. Father No problems noted. 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 [employer] handed Review of Systems Const Denies chills, Reports fatigue, Denies fever(s), Denies frequent falls, Denies weakness, Denies weight gain and Denies weight loss ENT Denies dizziness Card Denies chest pain, Denies leg edema, Denies lightheadedness, Denies palpitations, Denies dyspnea, Denies dyspnea on exertion, Denies orthopnea and Denies other (loss of consciousness) Resp Denies cough, Denies dyspnea and Denies dyspnea on exertion GI Denies hematochezia and Denies change in stool character Musc Denies abnormal gait, Denies muscle weakness, Denies numbness, Denies radiating pain into limb and Denies tingling Neuro Denies abnormal gait, Denies dizziness, Denies frequent falls, Denies numbness, Denies tingling and Denies weakness Endo Reports fatigue and Denies palpitations Physical Exam Vital Signs: Last Vital Signs Pulse 64 03/18/25 13:20 BP 120/72 03/18/25 13:20 BMI result Body Mass Index 26.3 Assessment & Plan Assessment & Plan (1) CAD (coronary artery disease): Code(s): I25.10 - Atherosclerotic heart disease of [place] coronary artery without angina pectoris Category: Medical Plan: CAD with prior PCI and then significant RCA occlusion but no symptoms of angina on current medical therapy. He is functionality as reduced over time and this may explain his reduce anginal symptoms. Encouraged to maintain activity level as tolerated. Will continue with metoprolol but at a lower dose. Continue aspirin as well as high-intensity statin therapy. He understands and agrees. Advised to call me with any new symptoms. (2) Orthostatic lightheadedness: Code(s): R42 - Dizziness and giddiness Category: Medical Plan: Orthostatic lightheadedness. We discussed mechanism of orthostatic lightheadedness in his current age group including relative hypovolemia as well as slower vascular reflexes. Encouraged to increase fluid intake as well as will reduce metoprolol dose to 25 mg daily. Advised to call me with worsening symptoms. Orthostatic precautions were discussed. He understands agrees. Will follow up in the clinic in 6 months time, sooner p.r.n.. Thank you for allowing me to partake in his care Medications: New metoprolol succinate ER (Toprol XL) 25 mg PO BEDTIME 90 tabs 3RF Discontinued metoprolol succinate ER Discontinued Reason: Doctor's Order 50 mg PO BEDTIME 90 tabs 3RF Coding Level of Care Code Est Pt Level 4 (39064) Complex EM visit Add On G2211 Diagnoses CAD (coronary artery disease) I25.10 Orthostatic lightheadedness R42
--- OUTSIDE RECORDS SUMMARY | 2025-03-18 14:35 | XMS_ITS | Clinical Summary ---
Author Organization [employer] [facility] Address [address] [place] [address] [address] [place] [address] Care Team Providers Care Airline Hostess Name Role Phone Unavailable Primary Care Provider [...] Screening 07/23/2023 07/23/2022 COVID-19 Vaccine ( season) 2025 04/23/2022, 10/23/2021, 04/11/2021, Additional history exists Influenza Vaccine (#1) 2025 , 03/18/2021, 04/14/2019, Additional history exists Zoster [...] this topic Insurance DENTAL - [employer] D[facility]AL [facility] [place] [address] DENTAL - [employer]ET[employer] DENTAL [facility]
--- OUTSIDE RECORDS SUMMARY | 2025-03-18 14:35 | XMS_ITS | Encounter Summary ---
Author Organization [facility] Address [address] [place] [address] Phone Care Team Providers Care Slubber Runner Name Role Phone Tony Greenwood MD Primary Care Provider [phone] Reason for Referral * Consultation (Within 1 month) - Closed Specialty Diagnoses / Procedures Referred By Contac t Referred To Contact Gastroenterology Diagnoses Gastroesophageal reflux disease without esophagitis Guzmán's esophagus with dysplasia Tony Greenwood MD Phone: tel: Talat Orr MD, MPH Phone: tel: fax: [email or web address] Referral ID Status Reason Start Date Expiration Date Visits Re quested Visits Authorized [id number] Closed 12/02/2017 12/02/2018 1 1 Encounter Details Date Type Department Care Team (Latest Contact Info) Description 12/02/2017 Transcribe Orders [facility] [address] [place] [address], [address] [place] [address] Tony Greenwood MD [address] [place] [address] Gastroesophageal reflux disease without esophagitis (Primary Dx); Guzmán's esophagus with dysplasia Social History Tobacco Use Types Packs/Day Years Used Date Smoking Tobacco: Never Assessed Sex and Gender Information Value Date Recorded Sex Assigned at Not on file Legal Sex Male 7:24 PM EST Gender Identity Not on file Sexual Orientation Not on file documented as of this encounter Plan of Treatment Scheduled Referrals Name Type Priority Associated Diagnoses Order Schedule Ambulatory referral to [facility] (Consult Requests Only) Outpatient Referral Routine Gastroesophageal reflux disease without esophagitis Guzmán's esophagus with dysplasia Ordered: 12/02/2017 documented as of this encounter Visit Diagnoses Diagnosis Gastroesophageal reflux disease without esophagitis- Primary Esophageal reflux Guzmán's esophagus with dysplasia documented in this encounter Care Teams Slubber Runner Relationship Specialty Start Date End Date Tony Greenwood MD [address] [place] [address] PCP - General Medical Oncology 11/07/17 documented as of this encounter Additional Source Comments The information contained in this document represents components of the legal health record. It is not the complete legal health record.[facility]
--- OUTSIDE RECORDS SUMMARY | 2025-03-18 14:35 | XMS_ITS | Patient Health Record ---
Author Organization Tony Greenwood III, MD Address [address] [place] [address] Care Team Providers Care Building Maintenance Superintendent Name Role Phone Tony Greenwood Primary Care Provider Allergies Allergen (clinical drug ingredient) Drug/Non Drug Allergy documented on EMR Reaction Allergy Type Onset Date Status No Known Drug Allergy Unknown Drug Allergy Active No Known Food Allergy Unknown Drug Allergy Active Results Component [...] date:09/28/2024 03:10:03 PM Interpretation: Performing Lab: Notes/Report: [address] [address] [address] Scan Report Signed Patient: Efrain Pedro MR#: [id number] : 1940 Acct:[id number] Age/Sex: 84 / M ADM Date: 06/04/24 Loc: HO.CT Attending Dr: Valdo Haley MD Ordering Physician: Valdo Haley MD Date of Service: 06/04/24 Procedure(s): CT chest wo IV con Accession Number(s): [id number] cc: oTny Greenwood MD; Valdo Haley MD Report Number: [id number]: Total DLP = 214.00 mGy-cm EXAMINATION: CT [...] Exam submitted for review 08/04/2024 3:07 PM PIPE BENDER. FINDINGS: PULMONARY NODULES: -There are a few [...] by: Tony Lopez MD 08/04/2024 04:22 PM [facility] Dictated By: Tony Lopez MD Signed By: <Electronically signed by Tony Lopez MD in OV> 08/04/24 1622 DD/ 0736 TD/TT: 06/04/24 0742 Tool And Gauge Inspector: [place] [address] [place] Scan Report Signed Patient: Efrain Pedro MR#: [id number] : 1940 Acct:[id number] Age/Sex: 84 / M ADM Date: 06/04/24 Loc: .CT Attending Dr: Valdo Haley MD Ordering Physician: Valdo Haley MD Date of Service: 06/04/24 Procedure(s): CT [address] [facility] wo IV con Accession Number(s): [id number] cc: Tony Greenwood MD; Valdo Haley MD Report Number: [id number]: Total DLP = 214.00 mGy-cm EXAMINATION: CT [...] Exam submitted for review 08/04/2024 3:07 PM PIPE BENDER. FINDINGS: PULMONARY NODULES: -There are a few [...] by: Tony Lopez MD 08/04/2024 04:22 PM [facility] Dictated By: Tony Lopez MD Signed By: <Electronically signed by Tony Lopez MD in OV> 08/04/24 1622 DD/ 0736 TD/TT: 06/04/2442 Tool And Gauge Inspector: Complete Blood Count Auto Di ff Reviewed date:09/28/2024 03:10:03 PM Interpretation: Performing Lab:[facility], [address] [place] [phone] Notes/Report: White Blood Count 7.4 4.8-10.8 X10*3/uL [...] NRBC Abs Auto 0.000 0.0-0.012 X10*3/uL Comprehensive Girdler. Panel Fa Reviewed date:09/28/2024 03:10:03 PM Interpretation: Performing Lab:[facility], [address] [place] [phone] Notes/Report: Sodium 146 135-145 mmol/L Potassium 5.0 [...] Panel Reviewed date:09/28/2024 03:10:03 PM Interpretation: Performing Lab:[facility], [address] [place] [phone] Notes/Report: Triglycerides 233 <150 mg/dL Desirable Triglyceride: [...] Antigen Reviewed date:09/28/2024 03:10:03 PM Interpretation: Performing Lab:[address] [address] Notes/Report: Prostate Specific Antigen 1.47 <0.05-4.0 ng/mL PSA methodology: Puente Alinity i Chemiluminescent Microparticle Immunoassay (CMIA) Vitamin B12 and Folate Reviewed date:01/15/2025 07:24:34 PM Interpretation: Performing Lab:[address] [address] Notes/Report: Vitamin B12 998 200-900 pg/mL NORMAL 200-900 PG/ML INDETERMINATE 160-199 PG/ML DEFICIENT < 160 PG/ML Folate > 20.0 > or = 4.0 ng/mL Reference Values: > or = 4.0 ng/mL < 4.0 ng/mL suggests folate deficiency Methotrexate, aminopterin and folinic acid (leucovorin) are chemotherapeutic agents whose molecular structures are similar to folate; therefore, the String Cutter folate assay cannot be used for patients using these drugs. TSH reflex Free T4 Reviewed date:01/15/2025 07:24:34 PM Interpretation: Performing Lab:[facility], [address] [place] [phone] Notes/Report: TSH reflex Free T4 1.06 0.32-4.0 uIU/mL MR head/brain wo con Reviewed date:01/15/2025 07:24:34 PM Interpretation: Performing Lab: Notes/Report: [address] [address] Magnetic Resonance Report Signed Patient: Efrain Pedro MR#: [id number] : 1940 Acct:[id number] Age/Sex: 84 / M ADM Date: 11/20/24 Loc: HO.MRI Attending Dr: Jessica Mcghee MD Ordering Physician: Jessica Mcghee MD Date of Service: 11/20/24 Procedure(s): MR head/brain wo con Accession Number(s): [id number] cc: Jessica Mcghee MD; Tony Greenwood MD [...] Pritesh Sarmiento MD 11/20/2024 08:27 AM EDT Dictated By: Pritesh Garcia MD Signed By: <Electronically signed by Pritesh Dickinson MD in OV> 11/20/24826 DD/ 4 TD/TT: 11/20/24 08 Tool And Gauge Inspector: [place] [address] Magnetic Resonance Report Signed Patient: Efrain Pedro MR#: [id number] : 1940 Acct:[id number] Age/Sex: 84 / M ADM Date: 11/20/24 Loc: HO.MRI Attending Dr: Jessica Mcghee MD Ordering Physician: Jessica Mcghee MD Date of Service: 11/20/24 Procedure(s): MR head/brain wo con Accession Number(s): [id number] cc: Jessica Mcghee MD; Tony Greenwood MD [...] signed by Pritesh Dickinson MD in OV> 11/20/24 0827 DD/ 0725 TD/TT: 11/20/24 0800 Tool And Gauge Inspector: Complete Blood Count Auto Di ff Reviewed date:02/12/2025 12:53:51 PM Interpretation: Performing Lab:[facility], [address] [place] [phone] Notes/Report: White Blood Count 6.9 4.8-10.8 X10*3/uL Red Blood Count 4.29 4.60-5.80 X10*6/uL Hemoglobin 14.2 14.0-18.0 g/dl Hematocrit 42.1 42.0-52.0 % Mean Corpuscular Volume 98.1 80.0-98.0 fL Mean Corpuscular Hemoglobin 33.1 27.0-33.0 pg Mean Corpuscular HGB Conc 33.7 31.0-36.0 g/dl Red Cell Distribution Width 13.1 11.0-16.0 % Platelet Count 261 160-400 X10*3/uL Mean Platelet Volume 9.3 9.4-12.4 fL Neutrophils Percent Auto 66.5 45-73 % Imm Gran Pct Auto 0.3 0.0-0.4 % Lymphocytes Percent Auto 19.9 20-40 % Monocytes Percent Auto 9.3 2-11 % Eosinophils Percent Auto 3.4 0-4 % Basophils Percent Auto 0.6 0-2 % NRBC Pct Auto 0.0 0.0-0.2 /100WBC Neutrophils Absolute Auto 4.6 2.0-8.3 x10*3/uL Imm Gran Abs Auto 0.02 0.00-0.03 X10*3/uL Lymphocytes Absolute Auto 1.4 1.2-4.9 X10*3/uL Monocytes Absolute Auto 0.6 0.1-1.2 X10*3/uL Eosinophils Absolute Auto 0.2 0.0-0.4 X10*3/uL Basophils Absolute Auto 0.0 0.0-0.2 X10*3/uL NRBC Abs Auto 0.000 0.0-0.012 X10*3/uL Comprehensive Girdler. Panel Fa st Reviewed date:02/12/2025 12:53:51 PM Interpretation: Performing Lab:[address] [address] Notes/Report: Sodium 140 135-145 mmol/L Potassium 5.0 3.3-5.1 mmol/L Chloride 105 96-108 mmol/L Carbon Dioxide 30 22-29 mmol/L Anion Gap 10 12-20 Blood Urea Nitrogen 28 9-16 mg/dL Creatinine 1.53 0.5-1.4 mg/dL Estimated Glomerular Filt Rate 44 Chronic Kidney Disease: Estimated GFR < 60 mL/min/1.73m2 Severe Kidney Disease: Estimated GFR < 15 mL/min/1.73m2 Glucose Fasting 94 60-99 mg/dL Calcium 9.4 8.4-10.2 mg/dL Bilirubin Total 1.0 0.0-1.0 mg/dL Aspartate Amino Transferase 32 5-37 U/L Alanine Aminotransferase 34 0-40 U/L Total Protein 7.1 6.5-8.0 g/dL Albumin Level 4.4 3.5-5.0 g/dL Alkaline Phosphatase 66 39-117 U/L Lipid Panel Reviewed date:02/12/2025 12:53:51 PM Interpretation: Performing Lab:[facility], [address] [place] [phone] Notes/Report: Triglycerides 119 <150 mg/dL Desirable Triglyceride: less than 150 mg/dL Borderline High Triglyceride 150-199 mg/dL High Triglyceride: 200-499 mg/dL Very High Triglyceride: greater than or equal to 5OO mg/dL Cholesterol 124 <200 mg/dL Desirable Cholesterol: less than 200 mg/dL Borderline High Cholesterol: 200-239 mg/dL High Cholesterol: greater than 239 mg/dL LDL Cholesterol Calculated 69 <100 mg/dL Desirable LDL: less than 100 mg/dL Near Optimal/Above Optimal LDL: 110-129 mg/dL Borderline High LDL: 130-159 mg/dL High LDL: 160-189 mg/dL Very High LDL: greater than or equal to 190 mg/dL HDL Cholesterol 32 >40 mg/dL Desirable HDL: greater than 40 mg/dL Note: This HDL assay may give artificially low results in patients with liver disease. Prostate Specific Antigen Reviewed date:02/12/2025 12:53:51 PM Interpretation: Performing Lab:[facility], [address] [place] [phone] Notes/Report: Prostate Specific Antigen 1.36 <0.05-4.0 ng/mL PSA methodology: Puente Alinity i Chemiluminescent Microparticle Immunoassay (CMIA) Reason For Referral Reason R/O dementia Diagnosis [...] referral and would like it faxed to [phone] Referral Priority Routine Referral Appointment Date 11/16/2024 Reason leg weakness gait training muscle strengthening Diagnosis 1 Peripheral polyneuro alexis (G62.9) Diagnosis 2 Weakness of lower ex tremity, unspecified laterality (R29.898) Referral Organization Tony Greenwood III, MD Referring Provider First Name Tony Referring Provider Last Name Greenwood Referring Provider Speciality Internal M edicine Referred Provider [facility] Physical Therapy , Janusz Farr Referred Provider Specialty Physical The rapist General Notes Rachel Rodriguez JACQUIE 09/28 11:27:33 AM > ref/demo/progress note faxed to [facility] PT dept Referral Priority Routine Referral Appointment Date 10/13/2024 Medications Medication SIG (Take, Route, Frequency, Duration) Notes Start Date End Date Status Metoprolol Succinate ER 50 MG TAKE 1 TABLET BY MOUTH DAILY Oral Active Anoro Ellipta 62.5-25 MCG/ACT Inhalation Active Doxycycline Hyclate 100 MG TAKE 1 TABLET BY MOUTH EVERY DAY Active buPROPion HCl ER (XL) 150 MG TAKE 1 TABLET BY MOUTH EVERY DAY IN THE MORNING FOR 90 DAYS Active Ciclopirox Olamine 0.77 % External Active Alpha Lipoic Acid 200 MG 1 capsule Orall y Once a day Active Fiber Active Zinc Skyler-Benzyl Ggg-Bpuwx-Gta Active CoQ-10 Active Gabapentin 400 MG 1 capsule Orally Onc e a day Active CeleBREX 100 MG 1 capsule with food Orally Once a day Active buPROPion HCl ER (XL) 300 MG TAKE 1 TABLET BY MOUTH EVERY DAY IN THE MORNING FOR 90 DAYS Active Finasteride 5 MG TAKE 1 TABLET BY DIAMOND TH EVERY DAY FOR 30 DAYS Active Pantoprazole Sodium 40 MG TAKE 1 TABLET BY MOUTH EVERY DAY FOR 90 DAYS Active Celecoxib 200 MG TAKE 1 CAPSULE BY MO UTH EVERY DAY WITH FOOD FOR 30 DAYS Active Vitamin C Active Clopidogrel Bisulfate 75 MG TAKE 1 TABLE T BY MOUTH EVERY DAY Active Vitamin D Active Vyngwxkg-Xpdxynazt-Uuhrbbkf 0.1 % 1 drop into affected eye Ophthalmic two times a day 01/18/2025 Active Immunizations Vaccine Route Administration Date Status [...] Problem Status W/U Status Risk Notes Problem 8638511 Former smoker (Z87.891) Active confirmed He is highly motivated not to smoke. He has a strategy for prevention of relapse and maintenance of abstinence. Problem 76399465 Hyperlipidemia (E78.5) Active confirmed His lipids are currently stable and no change in her regimen was made. Problem 118584756 Overweight (E66.3) Active confirmed He is concerned that he has been losing weight over the last several years. His weight has declined to his current BMI of 25.07. He says his appetite is fair. He is going to be followed at six-month intervals to see if he continues with losing weight and, if so he will be aggressively pursued for diagnosis. Problem 74240653 Depression (F32.9) Active confirmed His depression is slightly worse after the surgery. He requested that I increase the bupropion to 450 mg a day. I have done so. This is a dose. He has taken successfully in the past. Problem 57574889 Simple chronic bronchitis (J41.0) Active confirmed Problem Osteoarthritis of hip (365599349) Osteoarthritis of hip, unspecified (M16.9) Active confirmed He occasionally has pain in his right hip that requires him to stop and rest frequently. He is scheduled for surgery to replace the right hip joint on January 08, [address] Rahman at [facility]. His blood work is adequate. His electrocardiogram is unremarkable. He has had clearance from pulmonary and cardiology. He is given general medical clearance for the procedure. His risk is greater than average because of his multiple comorbidities and coronary artery disease but is acceptable. He is granted, medical clearance. Problem 42491290 Coronary artery disease (I25.10) Active confirmed He has had no angina or diaphoresis or palpitations since his last visit. His coronary artery disease is stable. He is compliant with all his medications. His lipid profile is in its target range. He was seen by cardiology, November 19, 2022 and thought to be stable. Problem 507902582 BPH (benign prostatic hyperplasia) (N40.0) Active confirmed He rises from sleep once a night to urinate. No change in his medications was needed. Problem 34978333 Essential hypertension (I10) Active confirmed His blood press ure is currently stable and no change in his regimen was made. Problem 508891836 Peripheral vascular disease (I73.9) Active confirmed He is schedu led for a duplex scan and then a visit with his vascular surgeon in March 2025. He has no new complaints of ischemia in his legs. Problem 365630992 Erectile dysfunction (N52.9) Active confirmed His current medications are effective. Problem 84094364 Memory loss (R41.3) Active confirmed He is mildly forgetful but is aware of it. It is likely vascular in origin. He remains able to care for himself at home living with his . He remains mentally competent to make decisions. Problem 81989024 Obstructive sleep apnea (G47.33) Active confirmed He reports that his pulmonary physician told him to stop using his CPAP. He is done so and not noticed any change in his medical status. He will keep me advised if this happens. Problem 881971595 Ascending aortic aneurysm (I71.2) Active confirmed He has a CT sca n of the chest and a consultation with a cardiac surgeon regularly at scheduled intervals. He has had no chest pain or dyspnea. Problem 85135940 Vitamin D deficiency (E55.9) Active confirmed We discussed hi s vitamin D supplementation. I strongly urged him to continue it. 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 It is asymptomatic. Problem 858272531 History of skin cancer (Z85.828) Active confirmed No new skin lesions were noted on today's examination. Surveillance will continue. Problem 17228288 Hoarseness (R49.0) Active confirmed His voice was m uch more normal today. The urinalysis and throat physician has increased the pantoprazole and he is doing well. Problem Osteoarthritis of knee (570083386) Osteoarthritis of knees, bilateral (M17.0) Active confirmed There was mild crepitus of his knees. He has occasional knee pain but is able to conduct all of the activities of daily life. 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 Problem 719706190 Chronic GERD (K21.9) Active confirmed His chronic ref lux symptoms are well controlled with zofn-lsp-tnduonf medication. Problem 61987328 Peripheral polyneuropathy (G62.9) Active confirmed Vital Signs Heart Rate 62 /min 02/15/2025 Temperature 97.1 degrees Fahrenheit 02/15/2025 Blood pressure diastolic 83 mm Hg 02/15/2025 Height 76 in 02/15/2025 Blood pressure systolic 130 mm Hg 02/15/2025 Weight 206 lbs 02/15/2025 BMI 25.07 kg/m2 02/15/2025 Encounters Encounter Location Date Provider Diagnosis Tony Greenwood III, MD [address] [place] [address] [place] [phone] 09/28/2024 Tony Greenwood Coronary artery dise ase [...] Memory loss R41.3 and Former smoker Z87.891 Tony Greenwood III, MD [address] [place] [address] [place] [phone] 02/15/2025 Tony Greenwood Hyperlipidemia E78.5 ; 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 ; Essential hypertension I10 ; Vitamin D deficiency E55.9 ; Obstructive sleep apnea G47.33 ; 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 ; Peripheral vascular disease I73.9 ; Overweight E66.3 ; Former smoker Z87.891 ; Coronary artery disease I25.10 ; Depression F32.9 ; BPH (benign prostatic hyperplasia) N40.0 and 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 Tony Greenwood III, MD [address] [place] [address] [place] [phone] 01/08/2025 Tony Greenwood III, MD [address] [place] [address] [place] [phone] 01/18/2025 Tony Greenwood III, MD [address] [place] [address] [place] [phone] 01/18/2025 Tony Greenwood III, MD [address] [place] [address] [place] [phone] 01/18/2025 Tony Greenwood III, MD [address] [place] [address] [place] [phone] 01/18/2025 Tony Greenwood III, MD [address] [place] [address] DR [place], [place] [address] 02/15/2025 Tony Greenwood Assessments Encounter Date Diagnosis (ICD Code) Assessment Notes Treat ment Notes Treatment Clinical Notes 09/28/2024 Hyperlipidemia (ICD-10 - E78.5) His lipids [...] 2022 and thought to be stable. 02/15/2025 Hyperlipidemia (ICD-10 - E78.5) His lipids are currently stable and no change in her regimen was made. 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 09/28/2024 Essential hypertension (ICD-10 - I10) His blood pressure today is 99/69. No change in his regimen as needed. 02/15/2025 Essential hypertension (ICD-10 - I10) His blood pressure is currently stable and no change in his regimen was made. 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 02/15/2025 Vitamin D deficiency (ICD-10 - E55.9) We discussed his vitamin D supplementation. I strongly urged him to continue it. 09/28/2024 Iliac artery aneurys m (ICD-10 - I72.3) He has a small right-sided iliac artery aneurysm which is being observed. It is asymptomatic. 02/15/2025 Obstructive sleep apnea (ICD-10 - G47.33) He reports that his pulmonary physician told him to stop using his CPAP. He is done so and not noticed any change in his medical status. He will keep me advised if this happens. 09/28/2024 Peripheral vascular disease (ICD-10 - I73.9) He has iliac artery and popliteal artery aneurysm, some of which have been repaired. He has claudication but is able to conduct all of the activities of daily living. His vascular surgeon has recommended correction of the remaining popliteal artery. The patient is not certain he wants to undergo that surgery at this time. 02/15/2025 Iliac artery aneurys m (ICD-10 - I72.3) He has a small right-sided iliac artery aneurysm which is being observed. It is asymptomatic. 09/28/2024 History of skin cancer (ICD-10 - Z85.828) No new skin lesions were noted on today's examination. Surveillance will continue. 02/15/2025 Peripheral vascular disease (ICD-10 - I73.9) He is scheduled for a duplex scan and then a visit with his vascular surgeon in March 2025. He has no new complaints of ischemia in his legs. 09/28/2024 Overweight (ICD-10 - E66.3) His body mass index is 26. We discussed diet and nutrition. We made a plan to lose weight at a rate of one half of a pound per week.He has lost 12 pounds since his last visit. 02/15/2025 Overweight (ICD-10 - E66.3) He is concerned that he has been losing weight over the last several years. His weight has declined to his current BMI of 25.07. He says his appetite is fair. He is going to be followed at six-month intervals to see if he continues with losing weight and, if so he will be aggressively pursued for diagnosis. 09/28/2024 BPH (benign prostati c hyperplasia) (ICD-10 - N40.0) He rises from sleep once a night to urinate. No change in his medications was needed. 02/15/2025 Former smoker (ICD-1 0 - Z87.891) He is highly motivated not to smoke. He has a strategy for prevention of relapse and maintenance of abstinence. 09/28/2024 Chronic GERD (ICD-10 - K21.9) His chronic reflux symptoms are well controlled with gbwv-dye-ozljodo medication. 02/15/2025 Coronary artery disease (ICD-10 - I25.10) He has had no angina or diaphoresis or palpitations since his last visit. His coronary artery disease is stable. He is compliant with all his medications. His lipid profile is in its target range. He was seen by cardiology, November 19, 2022 and thought to be stable. 09/28/2024 Ascending aortic aneurysm (ICD-10 - I71.2) He has a CT scan of the chest and a consultation with a cardiac surgeon regularly at scheduled intervals. He has had no chest pain or dyspnea. 02/15/2025 Depression (ICD-10 - F32.9) His depression is slightly worse after the surgery. He requested that I increase the bupropion to 450 mg a day. I have done so. This is a dose. He has taken successfully in the past. 09/28/2024 Osteoarthritis of knees, bilateral (ICD-10 - M17.0) There was mild crepitus of his knees. He has occasional knee pain but is able to conduct all of the activities of daily life. 02/15/2025 BPH (benign prostati c hyperplasia) (ICD-10 - N40.0) He rises from sleep once a night to urinate. No change in his medications was needed. 09/28/2024 Memory loss (ICD-10 - R41.3) He is mildly forgetful but is aware of it. It is likely vascular in origin. He remains able to care for himself at home living with his . He remains mentally competent to make decisions. 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 09/28/2024 Former smoker (ICD-1 0 - Z87.891) He is highly motivated not to smoke. He has a strategy for prevention of relapse and maintenance of abstinence. Plan Of Treatment Pending Test Test Name Order Date PROFILE, FASTING (COMPREHENSIVE METABOLI C) 05/21/2022 PROFILE, FASTING (COMPREHENSIVE METABOLI C) 02/15/2025 PROFILE, FASTING (COMPREHENSIVE METABOLI C) 03/28/2021 PROFILE, FASTING (COMPREHENSIVE METABOLI C) 12/18/2022 PROFILE, FASTING (COMPREHENSIVE METABOLI C) 05/18/2020 PROFILE, FASTING (COMPREHENSIVE METABOLI C) 06/28/2017 PROFILE, FASTING (COMPREHENSIVE METABOLI C) 09/28/2024 PROFILE, FASTING (COMPREHENSIVE METABOLI C) 10/05/2022 PROFILE, FASTING (COMPREHENSIVE METABOLI C) 12/27/2023 PROFILE, FASTING (COMPREHENSIVE METABOLI C) 09/26/2020 PROFILE, FASTING (COMPREHENSIVE METABOLI C) 03/04/2020 PROFILE, FASTING (COMPREHENSIVE METABOLI C) 09/20/2023 PROFILE, RANDOM (COMPREHENSIVE METABOLIC ) 08/10/2022 PROFILE, RANDOM (COMPREHENSIVE METABOLIC ) 08/19/2019 HEMOGLOBIN A1C (GLYCOHEMOGLOBIN) 021 LIPID PANEL 08/10/2022 LIPID PANEL 08/19/2019 LIPID PANEL 05/21/2022 LIPID PANEL 12/18/2022 LIPID PANEL 05/18/2020 LIPID PANEL 06/28/2017 LIPID PANEL 10/05/2022 LIPID PANEL 09/26/2020 LIPID PANEL 03/04/2020 PSA, TOTAL 09/26/2020 PSA, TOTAL 09/20/2023 PSA, TOTAL 08/10/2022 PSA, TOTAL 08/19/2019 PSA, TOTAL 03/28/2021 PSA, TOTAL 05/21/2022 PSA, TOTAL 12/18/2022 PSA, TOTAL 09/28/2024 PSA, TOTAL 05/18/2020 PSA, TOTAL 12/27/2023 CBC w DIFF 03/04/2020 CBC w DIFF 09/26/2020 CBC w DIFF 02/15/2025 CBC w DIFF 08/10/2022 CBC w DIFF 08/19/2019 CBC w DIFF 03/28/2021 CBC w DIFF 05/21/2022 CBC w DIFF 12/18/2022 CBC w DIFF 06/28/2017 CBC w DIFF 09/28/2024 CBC w DIFF 05/18/2020 CBC w DIFF 10/05/2022 SED RATE (ESR) 02/15/2025 MRI BRAIN NO CONTRAST 10/30/2016 Echocardiogram 08/28/2021 PFT with DLCO 07/09/2017 CBC WITH AUTO DIFF 12/27/2023 CBC WITH AUTO DIFF 09/20/2023 SARS COV2 RNA RT PCR 04/11/2020 Lipid Panel 12/27/2023 Lipid Panel 09/20/2023 Lipid Panel 02/15/2025 Lipid Panel 09/28/2024 Vitamin D 25-OH Total 02/15/2025 INR WHOLE BLOOD POC 03/28/2021 CT head/brain w con 09/28/2020 CT head/brain wo/w con 10/07/2020 Next Appt Details Provider Name:Tony Greenwood, 03/29/2025 10:30:00 AM, [address] [place] [address] [address], [address], Provider Name:Tony Greenwood, 09/29/2025 03:00:00 PM, [address] [facility] [address], [address], Insurance Providers Payer Name Payer Address Payer Phone Subscriber Number Group Number Insured Name Patient Relationship to Insured Coverage Start Date Coverage End Date [employer] Medicare [address] [place] [address] [id number] Efrain Pedro Self - patient is the insured 2 [employer] [address] [place] [address] [id number] Efrain Pedro Self - patient is the insured Medical (General) History Medical History History ICD Code left popliteal artery aneurysm, repaired depression hyperlipidemia CAD- 1998 non-eluting stent RCA, ID caracts scc right eyelid and forehead former smoker fractured metatarsal right-sided aortic arch 4.5 cm ascending aortic aneurysm diastasis rectus Surgical History Surgery Date(Month/Year) Right popliteal aneurism stent 06/2024 Right hip surgery 12/2022 left cheek lesion removal [facility] 2021 repair popliteal aneurysm 01/2004 colonoscopy,negative 09/2009 Hospitalization History Reason Date(Month/Year) stent placement 2017
--- OUTSIDE RECORDS SUMMARY | 2025-03-18 14:35 | XMS_ITS | Encounter Summary ---
Author Organization [facility] Address [address] [place] [address] [address] [place] [address] Care Team Providers Care Auto Damage Insurance Appraiser Name Role Phone Unavailable Primary Care Provider [...]
--- OUTSIDE RECORDS SUMMARY | 2025-03-18 14:35 | XMS_ITS | Clinical Summary ---
Author Organization [facility] Address [address] [place] [id number] Phone Care Team Providers Care Geophysical Data Technician Name Role Phone Tony Greenwood MD Primary Care Provider [phone] Social History Tobacco Use Types Packs/Day Years Used Date Smoking Tobacco: Never Assessed Sex and Gender Information Value Date Recorded Sex Assigned at Not on file Legal Sex Male 7:24 PM EST Gender Identity Not on file Sexual Orientation Not on file Plan of Treatment Not on file Medical Devices Not on file Insurance [employer] PPO MEDICARE REPLACEMENT [facility] MEDICARE [facility]PLACEMENT [facility] MEDICARE REPLACEMENT [facility] AETNA O MEDICARE REPLACEMENT [facility] AETNA O MEDICARE REPLACEMENT [facility] AETNA O MEDICARE REPLACEMENT [facility] AETNA O MEDICARE REPLACEMENT [facility] AETNA O MEDICARE REPLACEMENT [facility] Care Teams Geophysical Data Technician Relationship Specialty Start Date End Date Tony Greenwood MD [address] [place] [address] [phone] PCP - General Medical Oncology 11/07/17 Additional Source Comments The information contained in this document represents components of the legal health record. It is not the complete legal health record.[facility]
== END 2025-03-18 14:42 | disposition home or self-care (01) ==
LOC: HO.HCS 13:19
PROVIDERS: PCP Internal Medicine Medical Oncology; Visit Provider Internal Medicine Cardiovascular Disease
DX: I25.10 Atherosclerotic heart disease of native coronary artery without angina pectoris (principal); R42 Dizziness and giddiness
CPT/HCPCS: 99214; G2211

== ENCOUNTER → 2025-03-18 13:18 | Outpatient (BNVA) | payer MEDICARE, OTHER, SELFPAY | PROVIDERS: PCP Internal Medicine Medical Oncology; Visit Provider Internal Medicine Cardiovascular Disease | DX: R42 Dizziness and giddiness (principal); R53.83 Other fatigue; I25.10 Atherosclerotic heart disease of native coronary artery without angina pectoris; I10 Essential (primary) hypertension; Z95.5 Presence of coronary angioplasty implant and graft | CPT/HCPCS: 99212 ==

== ENCOUNTER 2025-05-12 08:22 | Outpatient (AMB) | payer MEDICARE, OTHER, SELFPAY ==
--- OUTSIDE RECORDS SUMMARY | 2024-09-28 11:00 | XMS_ITS ---
Author Organization Tony Greenwood III, MD Address [address] [place] [address] DR BENZ Alexander [place] [id number] Care Team Providers Care Senior Systems Developer Name Role Phone Dr. 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) Diagnosis 2 Weakness of lower ex tremity, unspecified laterality (R29.898) Referral Organization Tony Greenwood III, MD Referring Provider First Name Tony Referring Provider Last Name Krystyna Referring Provider Speciality Internal M edicine Referred Provider [facility] Physical Therapy Janusz Referred Provider Specialty Physical The rapist General Notes SRachel [employer] 09/28 11:27:33 AM > ref/demo/progress note faxed to [facility] PT dept Referral Priority Routine Referral Appointment [...] External Active Ketoconazole 2 % 1 application Independent Living Specialist ally Once a day 03/15/2023 Active CeleBREX [...] DAYS Active Vitamin D Active Zinc Skyler-Benzyl Hpu-Hgoyz-Hyx Active Pantoprazole Sodium 40 MG TAKE 1 [...] Date Provider Diagnosis Tony Greenwood III, MD [address] [place] [address] [place] [address] 09/28/2024 Tony Greenwood Coronary artery dise ase [...] chronic reflux symptoms are well controlled with rqfd-zrd-satzcna medication. 09/28/2024 Ascending aortic aneurysm (ICD-10 - [...] % External Ketoconazole 2 % 1 application Independent Living Specialist ally Once a day 03/15/2023 CeleBREX 100 [...] FOR 90 DAYS Vitamin D Zinc Skyler-Benzyl Pdn-Ltpkm-Jrd Pantoprazole Sodium 40 MG TAKE 1 TABLET [...] leg weak ness gait training muscle strengthening, [facility] Physical Therapy Next Appt Details Follow Up: 4 Months, Reason: ov review labs Provider Name:Tony Greenwood , 06/28/2025 10:00:00 AM, [address] [facility] [place], [place], [id number], Provider Name:Tony Greenwood , 09/29/2025 03:00:00 PM, [address] [place] [address] [place], [phone], Progress Notes * Efrain PEDRO IIDOB: (84 yo M)Acc No.[id number]:09/28/2024 Progress Notes Patient: Efrain WALLER II Provider: Tyrone Greenwood MD :1940 A ge:84 Y S ex:Male Date:09/28/2024 Address:[address] [place] [address], [place], [id number] Subjective: * Chief Complaints: * A nnual [...] 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 He was born [facility]. He is now working at the [employer]. * Medications: T akingbuPROPion HCl ER (XL) [...] DAYS Vitamin C Vitamin D Zinc Skyler-Benzyl Tmp-Jyzmh-Ugt Antioxidant CoQ-10 Gabapentin 100 MG Capsule 2 [...] C Taking Vitamin D Taking Zinc Skyler-Benzyl Tln-Iswmm-Xgv Taking Antioxidant Taking CoQ-10 Taking Gabapentin 100 [...] mg/dL) 36 (Ref Range: mg/dL) * Lab:[facility] * Collection Date 09/14/2024 [...] chronic reflux symptoms are well controlled with kxnm-prd-tamoblf medication. 1 1. A scending aortic aneurysm [...] C; C ontinue Vitamin D;?Continue Zinc Skyler-Benzyl Uqd-Ocwim-Jtb; C ontinue Antioxidant; C ontinue CoQ-10; C [...] 09/28/2024 Generated for Oralia buckley/Jose/eTransmitting on: 1 08:45 AM EDT History and Physical Notes * HPI (History [...] R/O dementia 09/28/2024 Tony Greenwood Physical [facility] leg weakness gait training muscle strengthening
--- OUTSIDE RECORDS SUMMARY | 2025-01-08 06:25 | XMS_ITS ---
Author Organization Tony Greenwood III, MD Address [address] [place] [address] [place] [address] Care Team Providers Care A&P Technician Name Role Phone Dr. Tony Greenwood III Primary Care Provider REASON FOR VISIT Rx Request Encounters Encounter Location Date Provider Diagnosis Tony Greenwood III, MD [address] [place] [address] [place] [address] 01/08/2025 Tony Greenwood Plan Of Treatment Next Appt Details Provider Name:Tony Greenwood , 06/28/2025 10:00:00 AM, [address] [place] [address] [place], [address], Provider Name:Tony Greenwood , 09/29/2025 03:00:00 PM, [address] [place] [address] [place], [address], Progress Notes * Efrain PEDRO IIDOB: (84 yo M)Acc No.[id number]:01/08/2025 Patient: Jayashree Efrain BERRIOS II :1940 A ge:84 Y S ex:Male Address:[address] [address] * true * Date: Generated for Printi ng/Faxing/eTransmitting on: 1 08:46 AM EDT
--- OUTSIDE RECORDS SUMMARY | 2025-01-18 05:21 | XMS_ITS ---
Author Organization Tony Greenwood III, MD Address [address] [place] [address] [place] [address] Care Team Providers Care Supervisor Carton And Can Supply Name Role Phone Dr. Tony Greenwood III Primary Care Provider REASON FOR VISIT eye drop ointment Encounters Encounter Location Date Provider Diagnosis Tony Greenwood III, MD [address] [place] [address] [place] [address] 01/18/2025 Tony Greenwood Plan Of Treatment Next Appt Details Provider Name:Tony Greenwood , 06/28/2025 10:00:00 AM, [address] [place] [address] [place], [address], Provider Name:Tony Greenwood , 09/29/2025 03:00:00 PM, [address] [place] [address] [place], [address], Progress Notes * Efrain PEDRO IIDOB: (84 yo M)Acc No.[id number]:01/18/2025 Patient: Jayashree BERRIOS Efrain Garcia II :1940 A ge:84 Y S ex:Male Address[address] [place] [address] * true * Date: Generated for Printi ng/Fabreanneg/eTransmitting on: 1 08:46 AM EDT
--- OUTSIDE RECORDS SUMMARY | 2025-01-18 07:43 | XMS_ITS ---
Author Organization Tony Greenwood III, MD Address [address] [place] [address] [place] [address] Care Team Providers Care Employee Development Director Name Role Phone Dr. Tony Greenwood III Primary Care Provider [phone] Encounters Encounter Location Date Provider Diagnosis Tony Greenwood III, MD [address] [place] [address] [place] [address] 01/18/2025 Tony Greenwood Plan Of Treatment Next Appt Details Provider Name:Tony Greenwood , 06/28/2025 10:00:00 AM, [address] [place] [address] [place], [address], Provider Name:Tony Greenwood , 09/29/2025 03:00:00 PM, [address] [place] [address] [place], [address], Progress Notes * Efrain PEDRO IIDOB: (84 yo M)Acc No.[id number]:01/18/2025 Patient: Jayashree Efrain BERRIOS II :1940 A ge:84 Y S ex:Male Address:[address] [place] [address] * true * Date: Generated for Oralia buckley/Jose/eTransmitting on: 1 08:47 AM EDT
--- OUTSIDE RECORDS SUMMARY | 2025-01-18 07:46 | XMS_ITS ---
Author Organization Tony Greenwood III, MD Address [address] [place] [address] [place] [address] Care Team Providers Care Activities Director Name Role Phone Dr. Tony Greenwood III Primary Care Provider Medications Medication SIG (Take, Route, Frequency, Duration) Notes Start Date End Date Status Qyiumapy-Llejhjebt-LZ 3.5-37693-9 one drop each eye Ophthalmic twice a day for 7 days 01/18/2025 Active Encounters Encounter Location Date Provider Diagnosis Tony Greenwood III, MD [address] [place] [address] [place] [address] 01/18/2025 Tony Greenwood Plan Of Treatment Medication Medication Name Sig Start Date Stop Date Notes Eqozglsv-Cqrigczrf-YR 3.5-88048-4 one drop each eye Ophthalmic twice a day for 7 days 01/18/2025 Next Appt Details Provider Name:Tony Greenwood , 06/28/2025 10:00:00 AM, [address] [place] [address] [place], [address], Provider Name:Tony Greenwood , 09/29/2025 03:00:00 PM, [address] [place] [address] [place], [address], Progress Notes * Efrain PEDRO IIDOB: (84 yo M)Acc No.[id number]:01/18/2025 Patient: Efrain WALLER II :1940 A ge:84 Y S ex:Male Address:[address] [place] [address], [place] [address] * Refills Start Inwcrkoa-Toavokmdv-WI Suspension, 3.5-97665-6, Ophthalmic, 7.5 Milliliter, one drop each eye, twice a day, 7 days, Refills=1 * true * Date: Generated for Oralia buckley/Jose/Joeitting on: 1 08:47 AM EDT
--- OUTSIDE RECORDS SUMMARY | 2025-01-18 11:36 | XMS_ITS ---
Author Organization Tony Greenwood III, MD Address [address] [place] [address] [place] [address] Care Team Providers Care Area Operations Director Name Role Phone Dr. Tony Greenwood III Primary Care Provider Medications Medication SIG (Take, Route, Frequency, Duration) Notes Start Date End Date Status Tidfnwcq-Pmqenmnwg-Umfulno h 0.1 % 1 drop into affected eye Ophthalmic two times a day for 7 days 01/18/2025 Active Encounters Encounter Location Date Provider Diagnosis Tony Greenwood III, MD [address] [place] [address] [place] [address] 01/18/2025 Tony Greenwood Plan Of Treatment Medication Medication Name Sig Start Date Stop Date Notes Fibovqps-Boggfgims-Slfbvlbt 0.1 % 1 drop into affected eye Ophthalmic two times a day for 7 days 01/18/2025 Next Appt Details Provider Name:Tony Greenwood , 06/28/2025 10:00:00 AM, [address] [place] [address] [place], [address], Provider Name:Tony Greenwood , 09/29/2025 03:00:00 PM, [address] [place] [address] [place], [address], Progress Notes * fErain PEDRO IIDOB: (84 yo M)Acc No.[id number]:01/18/2025 Patient: Efrain WALLER II :1940 A ge:84 Y S ex:Male Address:[address] [place] [address], [facility] [place] [address] * Refills Start Gyjeucmp-Ewecsdgtx-Qoatxmme Suspension, 0.1 %, Ophthalmic, 0.7 ML, 1 drop into affected eye, two times a day, 7 days, Refills=1 * true * Date: Generated for Oralia buckley/Jose/Joeitting on: 1 08:45 AM EDT
--- OUTSIDE RECORDS SUMMARY | 2025-02-02 13:00 | XMS_ITS ---
Author Organization Tony Greenwood III, MD Address [address] [place] [address] [place] [address] Care Team Providers Care Woods Superintendent Name Role Phone Dr. Tony Greenwood III Primary Care Provider REASON FOR VISIT follow up Encounters Encounter Location Date Provider Diagnosis Tony Greenwood III, MD [address] [place] [address] [place] [address] 02/02/2025 Tony Greenwood Plan Of Treatment Next Appt Details Provider Name:Tony Greenwood , 06/28/2025 10:00:00 AM, [address] [place] [address] [place], [address], Provider Name:Tony Greenwood , 09/29/2025 03:00:00 PM, [address] [place] [address] [place], [address], Progress Notes * LESLEE Efrain Garcia IIDOB: (85 yo M)Acc No.[id number]:02/02/2025 Progress Notes Patient: Jayashree BERRIOS Efrain Garcia [...] 0 02/02/2025 Generated for Oralia buckley/Jose/Joeitting on: 08:46 AM EDT
--- OUTSIDE RECORDS SUMMARY | 2025-02-15 06:30 | XMS_ITS ---
Author Organization Tony Greenwood III, MD Address [address] [place] [address] DR [address]EN[address] [place] [address] Care Team Providers Care Online Producer Name Role Phone Dr. Tony Greenwood III Primary Care Provider [phone] Allergies Allergen (clinical drug ingredient) Drug/Non Drug [...] TABLE T BY MOUTH EVERY DAY Active Dnstoubs-Kupwdwaqd-Wjosrbql 0.1 % 1 drop into affected eye [...] DAY FOR 30 DAYS Active Zinc Skyler-Benzyl Ohs-Mxlsv-Qfw Active CoQ-10 Active Gabapentin 400 MG 1 [...] Provider Diagnosis Tony Greenwood III, MD [address] [place] [address] [place] [address] 02/15/2025 Tony Greenwood Hyperlipidemia E78.5 ; Popliteal [...] 1 TABLE T BY MOUTH EVERY DAY Vysawepx-Oxpcxfxhe-Egwlqrfb 0.1 % 1 drop into affected eye Ophthalmic two times a day 01/18/2025 Ciclopirox Olamine 0.77 % External Metoprolol Succinate ER 50 MG TAKE 1 TAB LET BY MOUTH DAILY Oral Anoro Ellipta 62.5-25 MCG/ACT Inhalation CeleBREX 100 MG 1 capsule with food Orally Once a day Finasteride 5 MG TAKE 1 TABLET BY DIAMOND TH EVERY DAY FOR 30 DAYS Zinc Skyler-Benzyl Dfl-Fdeka-Nkj CoQ-10 Gabapentin 400 MG 1 capsule Orally Once a day Pending Test Test Name Order Date PROFILE, FASTING (COMPREHENSIVE METABOLI C) 02/15/2025 CBC w DIFF 02/15/2025 SED RATE (ESR) 02/15/2025 Lipid Panel 02/15/2025 Vitamin D 25-OH Total 02/15/2025 Next Appt Details Follow Up: 6 Weeks, Reason: OV review labs Provider Name:Tony Greenwood , 06/28/2025 10:00:00 AM, [address] [place] [address] [address], [place], [address], Provider Name:Tony Greenwood , 09/29/2025 03:00:00 PM, [address] [place] [address] [address], [place], [address], Progress Notes * Efrain PEDRO IIDOB: (85 yo M)Acc No.[id number]:02/15/2025 Progress Notes Patient: Jayashree MEHULEfrain HUNT II Provider: Tyrone Greenwood MD :1940 A ge:85 Y S ex:Male Date:02/15/2025 Address: [place], [id number] Subjective: * Chief Complaints: * P eripheral [...] 09/2009repair popliteal aneurysm 01/2004left cheek lesion removal [facility] hip surgery 12/2022Right popliteal aneurism [...] 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 He was born [facility]. He is now working at the [employer]. * Medications: T akingFiber Alpha Lipoic Acid [...] DAYS Vitamin C Vitamin D Zinc Skyler-Benzyl Yaw-Dhtjk-Tel CoQ-10 Gabapentin 400 MG Capsule 1 capsule [...] TAKE 1 TABLET BY MOUTH EVERY DAY Faqtejro-Vwltgrxpp-Fsoanwba 0.1 % Suspension 1 drop into affected [...] C Taking Vitamin D Taking Zinc Skyler-Benzyl Ksi-Ujtkb-Lbf Taking CoQ-10 Taking Gabapentin 400 MG Capsule [...] 1 TABLET BY MOUTH EVERY DAY Taking Gxgfeyym-Hhyvyzbnj-Myzoexsh 0.1 % Suspension 1 drop into affected eye Ophthalmic two times a day DiscontinuedAntioxidant Fluticasone Propionate 0.005 % Ointment 1 application to affected area Externally Twice a day Ketoconazole 2 % Cream 1 application Externally Once a day Gqqgqxjk-Kkqaktkkc-YN 3.5-44765-9 Suspension one drop each eye Ophthalmic twice a day Medication List reviewed and reconciled with the patientDiscontinued Antioxidant Discontinued Fluticasone Propionate 0.005 % Ointment 1 application to affected area Externally Twice a day Discontinued Ketoconazole 2 % Cream 1 application Externally Once a day Discontinued Nkoufwvo-Cehrbmbnj-JQ 3.5-29917-5 Suspension one drop each eye Ophthalmic twice [...] ontinue Vitamin D; C ontinue Zinc Skyler-Benzyl Ibl-Xrxut-Gog; C ontinue CoQ-10; C ontinue Gabapentin Capsule, [...] TABLET BY MOUTH EVERY DAY; C ontinue Jxxefyhk-Uexuvvjdy-Omizhflo Suspension, 0.1 %, 1 drop into affected [...] 02/15/2025 Generated for Oralia buckley/Jose/eTneenasmitting on: 1 08:45 AM EDT History and [...]
--- OUTSIDE RECORDS SUMMARY | 2025-02-15 10:49 | XMS_ITS ---
Author Organization Tony Greenwood III, MD Address [address] [place] [address] [place] [address] Care Team Providers Care Political Researcher Name Role Phone Dr. Tony Greenwood III Primary Care Provider REASON FOR VISIT F/U appt with Dr Dee Encounters Encounter Location Date Provider Diagnosis Tony Greenwood III, MD [address] [place] [address] [place] [address] 02/15/2025 Tony Greenwood Plan Of Treatment Next Appt Details Provider Name:Tony Greenwood , 06/28/2025 10:00:00 AM, [address] [place] [address] [place], [address], Provider Name:Tony Greenwood , 09/29/2025 03:00:00 PM, [address] [place] [address] [place], [address], Progress Notes * Efrain PEDRO IIDOB: (85 yo M)Acc No.[id number]:02/15/2025 Patient: Jayashree BERRIOS Efrain Garcia II :1940 A ge:85 Y S ex:Male Address:[address] [address] * true * Date: Generated for Oralia buckley/Jose/Lilly on: 1 08:46 AM EDT
--- OUTSIDE RECORDS SUMMARY | 2025-03-29 06:30 | XMS_ITS ---
Author Organization Tony Greenwood III, MD Address [address] [place] [address] DR BENZ Alexander [place] [id number] Care Team Providers Care Director Of Guidance Name Role Phone Dr. 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 Rahman at [facility]. His blood work is adequate. His [...] 1 TABLE T BY MOUTH EVERY DAY Ljblhdsv-Vxxxqvmyj-Nebbdtzo 0.1 % 1 drop into affected eye [...] 0.77 % External Vitamin D Zinc Skyler-Benzyl Lrc-Frjgm-Zwx Vitamin C CoQ-10 Gabapentin 400 MG 1 [...] Provider Name:Tony Greenwood , 06/28/2025 10:00:00 AM, [address] [address] [address], [place], [address], Provider Name:Tony Greenwood , 09/29/2025 03:00:00 PM, [address] [place] [address] [place], [phone], Progress Notes * Efrain PEDRO IIDOB: (85 yo M)Acc No.[id number]:03/29/2025 Progress Notes Patient: Jayashree BERRIOS Efrain Garcia II Provider: Tyrone Greenwood MD :1940 A ge:85 Y S ex:Male Date:03/29/2025 Address:Laina CASTROMCKENZIE SHAMIR, [place], [phone] Subjective: * Chief Complaints: * I liac and popliteal artery aneurysmA descending aortic aneurysmHyperlipidemiaHypertensionCoronary artery diseaseHistory of depressionSleep apneaMemory loss * HPI: C OVID-19 Screening: He returns for medical management. He continues to have pain in his hips and knees but does not wish to have injections her orthopedic follow-up. He saw his highway patrol commander recently and complained of lightheadedness. The metoprolol was decreased to 25 mg. His vital signs were stable today. He admits to nocturia twice a night. He saw his urologist recently. He was not placed on tamsulosin due to his postural hypotension. 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 He was born [facility]. He is now working at the [employer]. * Medications: T akingbuPROPion HCl ER (XL) 300 MG Tablet Extended Release 24 Hour TAKE 1 TABLET BY MOUTH EVERY DAY IN THE MORNING FOR 90 DAYS Pantoprazole Sodium 40 MG Tablet Delayed Release TAKE 1 TABLET BY MOUTH EVERY DAY FOR 90 DAYS Vitamin C Vitamin D Zinc Skyler-Benzyl Esb-Zmrou-Xxu CoQ-10 Gabapentin 400 MG Capsule 1 capsule [...] TAKE 1 TABLET BY MOUTH EVERY DAY Zydedatz-Crhnkdpfu-Vjxuqykg 0.1 % Suspension 1 drop into affected [...] C Taking Vitamin D Taking Zinc Skyler-Benzyl Pkn-Pmmes-Ohy Taking CoQ-10 Taking Gabapentin 400 MG Capsule [...] 1 TABLET BY MOUTH EVERY DAY Taking Xhtffdue-Pqunzpxyv-Vojiwbdp 0.1 % Suspension 1 drop into affected [...] January 08, [address] Rahman at [facility]. His blood work is adequate. His [...] ontinue Vitamin D; C ontinue Zinc Skyler-Benzyl Abd-Oamir-Nzs; C ontinue CoQ-10; C ontinue Gabapentin Capsule, [...] TABLET BY MOUTH EVERY DAY; C ontinue Jzrhssgy-Ngbeijhqp-Zfrdchfj Suspension, 0.1 %, 1 drop into affected [...] MD Date: 0 03/29/2025 Generated for Oralia buckley/Faxing/eTransmitting on: 1 08:47 AM EDT History and Physical Notes * [...]
[2025-05-12 08:24] VITALS: BP 126/84; PULSE 84; BMI 26.3
--- NOTE | 2025-05-12 08:24 | A.OFFVIS_ITS ---
Vital Signs 05/12/25 08:24 Height 6 ft 4 in Weight 216 lb 0.848 oz BMI 26.3 BP 126/84 Blood Pressure Location Lt brachial Position Sitting Pulse 84 Pulse Source Palpation Intake Visit Reasons: copd C Web Developer Required: No Accompanied by: Self / Same As Patient Allergies No Known Allergies Allergy (Verified 05/12/25 08:28) HPI Comments Details: The patient is a 85-year-old gentleman with a known history of COPD and MARISOL. Apparently, he was a smoker many years ago and was able to quit completely about 8 years ago. Subsequently after that he started developing increasing shortness of breath. He did have a cardiac evaluation in the past and did have a stent placed many years ago. More recently because is worsening shortness of breath moderate severity he was referred to Cardiology. He did undergo cardiac catheterization and ultimately per report demonstrated that his stent was 80% close. It was attempted to be open but was not able to be manipulated. Overall he is in good cardioprotective medications. He does have pulmonary function studies from 2017 demonstrating severe COPD with significant air trapping hyperinflation. The patient also had a moderate diffusion impairment back 10. Patient also had a CT scan of the chest demonstrating interstitial lung changes consistent with interstitial lung disease primarily at the bases. He also had distribution of emphysema in the mid and also lower lung zones bring up the question of alpha-1 antitrypsin deficiency. In the meantime the patient also has been using CPAP. The CPAP therapy has been affecting beneficial. He does uses CPAP for more than 4 hours a night. He will bring CPAP in during the next visit so we can download and also adjusted accordingly. He does uses [employer]. 03/20/2023 the patient is here for a pulmonary follow-up visit. Overall the patient has been doing well. Continues using the Anoro. This has been affected. He does not use it every day but he does notice improvement when he uses the. I did recommend he use it daily. In the meantime he also continues uses CPAP at nighttime. CPAP therapy continues to be affecting beneficial. He does use it for more than 4 hours a night. We did download the APAP. It appears that the degree of central apneas have yolanda rocket. It appears that he had the last week 19 episodes an hour of central sleep apnea and seems like the obstructive sleep apnea is controlled. He is set up APAP with a maximum pressure of 11. Will go ahead and switch him just to CPAP at 10 cm of water. He is going to have a nursing visit to read download the machine in the coming weeks. He continues to have significant central apneas he will require titration study because he may benefit from an ASV. He did have an echocardiogram this year demonstrating normal left ventricular function which is reassuring. Therefore, the patient will continue to use CPAP at the current settings and we will assess for the need for titration study in the coming weeks. 06/19/2023 the patient is here for a pulmonary follow-up visit. The patient has been doing well from a respiratory status. Is bringing responded well to the Anoro. He does not use it all the time but he typically uses it between 20 3 times a week. He has not had to use his rescue inhaler. He also has been using his CPAP. He does use it for more than 4 hours a night. The therapy is very beneficial although does not appear to be very effective for him as his AHI continues to be elevated above 10. He did bring the machine today and I did downloaded. His set up at CPAP of 10 based on trying to control is central sleep apnea. By switched over again to an APAP 9-12 to see high response to that but at the end of the day he needs a sleep titration study at this time to address the question of his complex sleep apnea in needing for an ASV setting. 11/11/2023 the patient is here for a pulmonary follow-up visit. Overall he is doing okay. Complains of dyspnea on exertion. Also bringing up phlegm which is whitish in color. Zmsk-hr-tcyxklar severity. He has been on Anoro. He does find partially helpful. He is concerned about he can hold steroids. The patient did have a CT scan of the chest IV contrast done at [facility] recently 2023 to assess his aneurysms. I personally reviewed. It appears he has a stable pulmonary nodule has not changed. Moderate degree of emphysema noted. 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 This is related to his COPD and hyperinflation of the lungs. He also has evidence of chronic bronchitis. He may benefit from inhaled steroids but I will keep him separate so he can take it during his worsening episodes and then he can back off on the steroids when he is doing okay. He also has some still some daytime drowsiness. His Bronson score is elevated 10/24. The patient did have a diagnosis of sleep apnea for many years and then we did a sleep study showing no evidence of any sleep apnea. He has been without his machine but we still reluctant specially after years and years CPAP therapy. Therefore, I will be reasonable to repeat his sleep study. At this time he is under going to go some vascular interventions will hold off at this time so he can have his vascular procedures completed. When he is done with that then we can look into doing a sleep study sometime in the fall of 2023. Will follow-up after the sleep study. 05/04/2024 the patient is here for a pulmonary follow-up visit. The patient overall has been doing well. He had a sleep study done the in-lab. No significant sleep apnea appreciated. No significant hypoxia appreciated although he does have significant periodic limb movements. He has been taking gabapentin 200 mg at nighttime. I did encourage him to increase that. He will go ahead and double it up to 400 mg. Can try that for some time and then if he is still having issues we can always try to take titrated up to 600 mg. He has been using the Anoro inhaler for the most part. Typically does not use the inhaled steroid which is reassuring. We did review his last CT scan of the chest back in 2021 demonstrating some pleural-based disease and significant emphysema and abnormal aortic arch. Will plan to repeat the CT scan at this time. He does have dyspnea on exertion. We did go for brief walking oximetry in his pulse ox was stable at 94-95% which is reassuring. He does exercise regularly. 02/09/2025 the patient is here for pulmonary follow-up visit. Overall the cristiane solis has been doing well from a respiratory status. He continues on the Anoro. He has not had to use any rescue medicine. He does get short of breath with activity but for the most part his activities limited by his neuropathy and his osteoarthritis of his right knee and hip pain. He is due looked down when he walks because of his neuropathy and he started developing achiness around the hip area which is uncomfortable. He did very well on pulmonary rehabilitation. So important for him to continue with conditioning due to the fact that too much sedentary life could worsen his respiratory capacity. Therefore will put him back to pulmonary rehabilitation so he can participate in a respiratory program. He will continue with the current respiratory therapy. His oxygen was difficult to measure with the regular finger pulse ox but I did get 99% on his ear probe. The patient did have a CT scan back in 2023 demonstrating stable pulmonary nodules measuring 2-3 mm in size which have been stable since 2020. The patient still sleeping well. He is not sleeping with the CPAP. He did have sleep apnea before but seemed to have resolved the issue with his last sleep study in his actually sleeping well he does wake up a few times but wakes up rested with an Bronson score less than 8. Otherwise the patient is without any other complaints. Will follow-up in 6 months if he has any issues he can always call for an earlier assessment. Yogurt do probiotics today is going to be [facility] Medical History (Updated 03/18/25 @ 13:44 by Jhonathan Gama MD) Cognitive impairment PLMD (periodic limb movement disorder) CAD (coronary artery disease) Complex sleep apnea syndrome Wears hearing aid in both ears Personal history of nicotine dependence MARISOL on CPAP HTN (hypertension) Fracture of left distal radius Aortic aneurysm Pulmonary nodules COPD (chronic obstructive pulmonary disease) Osteoarthritis of right hip Cataracts, bilateral CAD (coronary artery disease) Hyperlipidemia Depression Surgical History Hx of vascular surgery History of heart artery stent (~1997) History of cataract surgery (~2009) History of colonoscopy Family History Mother No problems noted. Father No problems noted. 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 [employer] [facility]pk[facility]yxrax handed Review of Systems Const Reports daytime sleepiness and Denies night sweats ENT Denies change in voice, Denies lip swelling, Denies mouth pain, Reports nasal congestion, Reports nasal discharge and Denies tongue swelling Card Denies chest pain, Denies dyspnea and Reports dyspnea on exertion Resp Denies cough, Denies dyspnea and Reports dyspnea on exertion GI Denies abdominal pain Musc Reports arthralgias and Reports limited range of motion Neuro Denies Neuro-related abnormal movements Psych Denies no additional complaints Jarrett/Lymph Denies easy bleeding and Denies lymphadenopathy Aller/Immun Denies lip swelling and Denies tongue swelling Physical Exam Vital Signs: Last Vital Signs Pulse 84 05/12/25 08:24 BP 126/84 05/12/25 08:24 BMI result Body Mass Index 26.3 Const General: alert Eyes Pupils: Equal, round and reactive pupils present Neck Neck: Yes normal visual inspection, Yes full ROM and Yes no lymphadenopathy Chest Chest palpation & inspection: normal inspection of the chest Resp Effort & Inspection: normal respiratory effort Auscultation: no wheezes and diminished lung sounds Cardio Rate: regular rate Rhythm: regular rhythm Heart sounds: S1 normal heart sound present and S2 normal heart sound present GI Palpation (GI): Soft to palpation and nontender Auscultation: normal bowel sounds Skin General skin exam: rashes and/or lesions noted Neuro Cranial nerves: Yes Equal, round and reactive pupils present Extrem General: No clubbing, No edema and Yes other (dread's) Assessment & Plan Assessment & Plan (1) COPD (chronic obstructive pulmonary disease): Comment: Moderate severity Code(s): J44.9 - Chronic obstructive pulmonary disease, unspecified Category: Medical Qualifiers: COPD type: COPD with acute exacerbation Qualified Code(s): J44.1 - Chronic obstructive pulmonary disease with (acute) exacerbation (2) MARISOL on CPAP: Code(s): G47.33 - Obstructive sleep apnea (adult) (pediatric); Z99.89 - Dependence on other enabling machines and devices Category: Medical (3) Pulmonary nodules: Comment: Based on previous CT scans of the chest. stable Code(s): R91.8 - Other nonspecific abnormal finding of lung field Category: Medical (4) Complex sleep apnea syndrome: Code(s): G47.31 - Primary central sleep apnea Category: Medical (5) PLMD (periodic limb movement disorder): Code(s): G47.61 - Periodic limb movement disorder Category: Medical Plan holding CPAP, sleeping well Continue Anoro daily continue Arnuity daily MEL as needed Gabapentin 400mg QHS Pulmonary rehab F/U 6-8 months Orders: Orders Pulmonary Rehab Today J44.1 - Chronic obstructive pulmonary disease with (acute) exacerbation Coding Level of Care Code Est Pt Level 4 (58009) Complex EM visit Add On G2211 Diagnoses Chronic obstructive pulmonary disease with acute exacerbation J44.1 COPD type: COPD with acute exacerbation MARISOL on CPAP G47.33; Z99.89 Pulmonary nodules R91.8 Complex sleep apnea syndrome G47.31 PLMD (periodic limb movement disorder) G47.61 Time Spent (min) 17
--- OUTSIDE RECORDS SUMMARY | 2025-05-12 08:46 | XMS_ITS | Encounter Summary ---
Author Organization [facility] Address [address] [place] [address] Care Team Providers Care Margin Trimmer Name Role Phone Tony Greenwood MD Primary Care Provider Joanna gomes Encounter Details Date Type Department Care Team Description 09/18/2017 Release of Information Medical Records [address] [place] [id number] Abstract, Provider Social History Tobacco Use Types Packs/Day Years Used Date Smoking Tobacco: Former Cigarettes 1 28 0 09/16/1977 - 11/16/2014 Smokeless Tobacco: Never Sex Assigned at Date Recorded Not on file documented as of this encounter Plan of Treatment Not on file documented as of this encounter Visit Diagnoses Not on filedocumented in this encounter Care Teams Margin Trimmer Relationship Specialty Start Date End Date Tony Greenwood MD PCP - General Oncology/Hematology 09/09/17 documented as of this encounter
--- OUTSIDE RECORDS SUMMARY | 2025-05-12 08:46 | XMS_ITS | Encounter Summary ---
Author Organization [facility] Address [address] [place] [address] [address] [place] [address] Care Team Providers Care Eddy Current Inspector Name Role Phone Unavailable Primary Care Provider [...]
--- OUTSIDE RECORDS SUMMARY | 2025-05-12 08:46 | XMS_ITS | Clinical Summary ---
Author Organization [facility] Address [address] [place] [address] Phone Care Team Providers Care Computerized Mill Mill Recorder Name Role Phone Tony Greenwood MD Primary Care Provider [phone]- [phone] Social History Tobacco Use Types Packs/Day Years Used Date Smoking Tobacco: Never Assessed Sex and Gender Information Value Date Recorded Sex Assigned at Not on file Legal Sex Male 7:24 PM EST Gender Identity Not on file Sexual Orientation Not on file Plan of Treatment Not on file Medical Devices Not on file Insurance [employer] PPO MEDICARE REPLACEMENT [facility] MEDICARE REPLACEMENT [facility] MEDICARE REPLACEMENT [facility] [employer]ET[employer] O MEDICARE REPLACEMENT [facility] AET[employer] O MEDICARE REPLACEMENT [facility] AETNA O MEDICARE REPLACEMENT [facility] AET[employer] O MEDICARE REPLACEMENT [facility] AET[employer] O MEDICARE REPLACEMENT [facility] Care Teams Computerized Mill Mill Recorder Relationship Specialty Start Date End Date Tony Greenwood MD [address] [place] [address] [place] [address] PCP - General Medical Oncology 11/07/17 Additional Source Comments The information contained in this document represents components of the legal health record. It is not the complete legal health record.[facility]
--- OUTSIDE RECORDS SUMMARY | 2025-05-12 08:46 | XMS_ITS | Encounter Summary ---
Author Organization [facility] Address [address] [place] [address] Phone Care Team Providers Care Herbarium Curator Name Role Phone Tony Greenwood MD Primary Care Provider [phone]- [phone] Reason for Referral * Consultation (Within 1 month) - Closed Specialty Diagnoses / Procedures Referred By Contac t Referred To Contact Gastroenterology Diagnoses Gastroesophageal reflux disease without esophagitis Guzmán's esophagus with dysplasia Tony Greenwood MD Phone: tel: fax: Talat Orr MD, MPH Phone: tel: fax: [email or web address] Referral ID Status Reason Start Date Expiration Date Visits Re quested Visits Authorized [id number] Closed 12/02/2017 12/02/2018 1 1 Encounter Details Date Type Department Care Team (Latest Contact Info) Description 12/02/2017 Transcribe Orders [facility] [address] [place] [address] Tony Greenwood MD [address] [place] [address] Dr Abebe ShakaLUNA [id number] Gastroesophageal reflux disease without esophagitis (Primary Dx); [...] Associated Diagnoses Order Schedule Ambulatory referral to [facility] (Consult Requests Only) Outpatient Referral Routine Gastroesophageal reflux disease without esophagitis Guzmán's esophagus with dysplasia Ordered: 12/02/2017 documented as of this encounter Visit Diagnoses Diagnosis Gastroesophageal reflux disease without esophagitis- Primary Esophageal reflux Guzmán's esophagus with dysplasia documented in this encounter Care Teams Herbarium Curator Relationship Specialty Start Date End Date Tony Greenwood MD [address] [place] [address] [place] [address] PCP - General Medical Oncology 11/07/17 documented as of this encounter Additional Source Comments The information contained in this document represents components of the legal health record. It is not the complete legal health record.[facility]
--- OUTSIDE RECORDS SUMMARY | 2025-05-12 08:48 | XMS_ITS | Patient Health Record ---
Author Organization Tony Greenwood III, MD Address [address] [place] [address] Care Team Providers Care Circus Performer Name Role Phone Dr. Tony Greenwood III Primary Care Provider [phone] Allergies Allergen (clinical drug ingredient) Drug/Non Drug [...] date:09/28/2024 03:10:03 PM Interpretation: Performing Lab: Notes/Report: [address] [address] [address] Scan Report Signed Patient: Efrain Pedro MR#: [id number] : 1940 Acct:[id number] Age/Sex: 84 / M ADM Date: 06/04/24 Loc: HO.CT Attending Dr: Valdo Haley MD Ordering Physician: Valdo Haley MD Date of Service: 06/04/24 Procedure(s): CT chest wo IV con Accession Number(s): [id number] cc: Tony Greenwood MD; Valdo Haley MD Report Number: [id number]: Total DLP = 214.00 mGy-cm EXAMINATION: CT [...] Exam submitted for review 08/04/2024 3:07 PM BLOOD BANK ATTENDANT. FINDINGS: PULMONARY NODULES: -There are a few [...] by: Tony Lopez MD 08/04/2024 04:22 PM [facility] Dictated By: Tony Lopez MD Signed By: <Electronically signed by Tony Lopez MD in OV> 08/04/24 1622 DD/ 0736 TD/TT: 06/04/24 0742 Dry Chain Offbearer: [place] [address] [address] Scan Report Signed Patient: Efrain Pedro MR#: [id number] : 1940 Acct:[id number] Age/Sex: 84 / M ADM Date: 06/04/24 Loc: HO.CT Attending Dr: Valdo Haley MD Ordering Physician: Valdo Haley MD Date of Service: 06/04/24 Procedure(s): CT [facility] [facility] wo IV con Accession Number(s): [id number] cc: Tony Greenwood MD; Valdo Haley MD Report Number: [id number]: Total DLP = 214.00 mGy-cm EXAMINATION: CT [...] Exam submitted for review 08/04/2024 3:07 PM BLOOD BANK ATTENDANT. FINDINGS: PULMONARY NODULES: -There are a few [...] by: Tony Lopez MD 08/04/2024 04:22 PM [facility] Dictated By: Tony Lopez MD Signed By: <Electronically signed by Tony Lopez MD in OV> 08/04/24 1622 DD/ 0736 TD/TT: 06/04/24 0742 Dry Chain Offbearer: Complete Blood Count Auto Di ff Reviewed date:09/28/2024 03:10:03 PM Interpretation: Performing Lab:[facility], [address] [place] [phone] Notes/Report: White Blood Count 7.4 4.8-10.8 X10*3/uL [...] NRBC Abs Auto 0.000 0.0-0.012 X10*3/uL Comprehensive [place]. Panel Fa st Reviewed date:09/28/2024 03:10:03 PM Interpretation: Performing Lab:[facility], [address] [place] [phone] Notes/Report: Sodium 146 135-145 mmol/L Potassium 5.0 [...] Panel Reviewed date:09/28/2024 03:10:03 PM Interpretation: Performing Lab:[facility], [address] [place] [phone] Notes/Report: Triglycerides 233 <150 mg/dL Desirable Triglyceride: [...] Antigen Reviewed date:09/28/2024 03:10:03 PM Interpretation: Performing Lab:[address] [address] Notes/Report: Prostate Specific Antigen 1.47 <0.05-4.0 ng/mL PSA methodology: [place]ente Alinity i Chemiluminescent Microparticle Immunoassay (CMIA) Vitamin B12 and Folate Reviewed date:01/15/2025 07:24:34 PM Interpretation: Performing Lab:[address] [address] Notes/Report: Vitamin B12 998 200-900 pg/mL NORMAL 200-900 PG/ML INDETERMINATE 160-199 PG/ML DEFICIENT < 160 PG/ML Folate > 20.0 > or = 4.0 ng/mL Reference Values: > or = 4.0 ng/mL < 4.0 ng/mL suggests folate deficiency Methotrexate, aminopterin and folinic acid (leucovorin) are chemotherapeutic agents whose molecular structures are similar to folate; therefore, the Gun Rep[employer] folate assay cannot be used for patients using these drugs. TSH reflex Free T4 Reviewed date:01/15/2025 07:24:34 PM Interpretation: Performing Lab:[facility], [address] [place] [phone] Notes/Report: TSH reflex Free T4 1.06 0.32-4.0 uIU/mL MR head/brain wo con Reviewed date:01/15/2025 07:24:34 PM Interpretation: Performing Lab: Notes/Report: [address] [address] Magnetic Resonance Report Signed Patient: Efrain Pedro MR#: [id number] : 1940 Acct:[id number] Age/Sex: 84 / M ADM Date: 11/20/24 Loc: HO.MRI Attending Dr: Jessica Mcghee MD Ordering Physician: Jessica Mcghee MD Date of Service: 11/20/24 Procedure(s): MR head/brain wo con Accession Number(s): [id number] cc: Jessica Mcghee MD; Tony Greenwood MD [...] OV> 11/20/24826 DD/ 4 TD/TT: 11/20/24 08 Dry Chain Offbearer: [place] [address] Magnetic Resonance Report Signed Patient: Efrain Pedro MR#: [id number] : 1940 Acct:[id number] Age/Sex: 84 / M ADM Date: 11/20/24 Loc: HO.MRI Attending Dr: Jessica Mcghee MD Ordering Physician: Jessica Mcghee MD Date of Service: 11/20/24 Procedure(s): MR head/brain wo con Accession Number(s): [id number] cc: Jessica Mcghee MD; Tony Greenwood MD [...] OV> 11/20/24826 DD/ 0725 TD/TT: 11/20/24 0800 Dry Chain Offbearer: Complete Blood Count Auto Di ff Reviewed date:02/12/2025 12:53:51 PM Interpretation: Performing Lab:[facility], [address] [place] [phone] Notes/Report: White Blood Count 6.9 4.8-10.8 X10*3/uL [...] NRBC Abs Auto 0.000 0.0-0.012 X10*3/uL Comprehensive [place]. Panel Fa st Reviewed date:02/12/2025 12:53:51 PM Interpretation: Performing Lab:[address] [address] Notes/Report: Sodium 140 135-145 mmol/L Potassium 5.0 [...] Panel Reviewed date:02/12/2025 12:53:51 PM Interpretation: Performing Lab:[address] [address] Notes/Report: Triglycerides 119 <150 mg/dL Desirable Triglyceride: [...] Antigen Reviewed date:02/12/2025 12:53:51 PM Interpretation: Performing Lab:[facility], [address] [place] [phone] Notes/Report: Prostate Specific Antigen 1.36 <0.05-4.0 ng/mL [...] referral and would like it faxed to [phone] Referral Priority Routine Referral Appointment Date 11/16/2024 Reason leg weakness gait training muscle strengthening Diagnosis 1 Peripheral polyneuro alexis (G62.9) Diagnosis 2 Weakness of lower ex tremity, unspecified laterality (R29.898) Referral Organization Tony Greenwood III, MD Referring Provider First Name Tony Referring Provider Last Name Greenwood Referring Provider Speciality Internal M edicine Referred Provider [facility] Physical Janusz Garcia Referred Provider Specialty Physical The rapist General Notes Rachel Rodriguez JACQUIE 09/28 11:27:33 AM > ref/demo/progress note faxed to [facility] PT dept Referral Priority Routine Referral Appointment Date 10/13/2024 Medications Medication SIG (Take, Route, Frequency, Duration) Notes Start Date End Date Status buPROPion HCl ER (XL) 300 MG TAKE 1 TABLET BY MOUTH EVERY DAY IN THE MORNING FOR 90 DAYS Active Vitamin D Active Zinc Skyler-Benzyl Cya-Bdgtl-Eaj Active Pantoprazole Sodium 40 MG TAKE 1 TABLET BY MOUTH EVERY DAY FOR 90 DAYS Active Vitamin C Active CeleBREX 100 MG 1 capsule with food Orally Once a day Active Metoprolol Succinate ER 25 MG 1 tablet Orally Once a day Active CoQ-10 Active Fiber Active Gabapentin 400 MG 1 capsule Orally Onc e a day Active Finasteride 5 MG TAKE 1 TABLET BY DIAMOND TH EVERY DAY FOR 30 DAYS Active Celecoxib 200 MG TAKE 1 CAPSULE BY MO UTH EVERY DAY WITH FOOD FOR 30 DAYS Active Anoro Ellipta 62.5-25 MCG/ACT Inhalation Active Ciclopirox Olamine 0.77 % External Active Alpha Lipoic Acid 200 MG 1 capsule Orall y Once a day Active Clopidogrel Bisulfate 75 MG TAKE 1 TABLE T BY MOUTH EVERY DAY Active Ujjurtlc-Mynyjqiug-Lndcmfhz 0.1 % 1 drop into affected eye [...] Comirnaty Pfizer COVID-19 12+ Unknown 09/28/2024 Administered Comirnaty Pfizer COVID-19 12+ Unknown 03/19/2025 Administered Fluzone High-Dose (HD-IIV3) Unknown 02/19/2025 Administ kecia Measles Unknown 12/01/2002 History of Immunity Mumps [...] Problem Status W/U Status Risk Notes Problem 7678520 Former smoker (Z87.891) Active confirmed He is highly motivated not to smoke. He has a strategy for prevention of relapse and maintenance of abstinence. Problem 55800042 Hyperlipidemia (E78.5) Active confirmed His lipids are currently stable and no change in her regimen was made. Problem 246015664 Overweight (E66.3) Active confirmed He has gained 7 pounds since his last visit and remains overweight. His appetite is good. We discussed ways to stabilize his weight at this level.. Problem 93130954 Depression (F32.9) Active confirmed His depression is slightly worse after the surgery. He requested that I increase the bupropion to 450 mg a day. I have done so. This is a dose. He has taken successfully in the past. Problem 98893307 Simple chronic bronchitis (J41.0) Active confirmed Problem Osteoarthritis of hip (861559280) Osteoarthritis of hip, unspecified (M16.9) Active confirmed He occasionally has pain in his right hip that requires him to stop and rest frequently. He is scheduled for surgery to replace the right hip joint on January 08, [address] Rahman at [facility]. His blood work is adequate. His electrocardiogram is unremarkable. He has had clearance from pulmonary and cardiology. He is given general medical clearance for the procedure. His risk is greater than average because of his multiple comorbidities and coronary artery disease but is acceptable. He is granted, medical clearance. Problem 93555366 Coronary artery disease (I25.10) Active confirmed He has had no angina or diaphoresis or palpitations since his last visit. His coronary artery disease is stable. He is compliant with all his medications. His lipid profile is in its target range. He was seen by cardiology, November 19, 2022 and thought to be stable. Problem 885344692 BPH (benign prostatic hyperplasia) (N40.0) Active confirmed He rises from sleep once a night to urinate. No change in his medications was needed. Problem 59893171 Essential hypertension (I10) Active confirmed His blood press ure is currently stable and no change in his regimen was made. Problem 285065753 Peripheral vascular disease (I73.9) Active confirmed He is schedu led for a duplex scan and then a visit with his vascular surgeon in March 2025. He has no new complaints of ischemia in his legs. Problem 497973020 Erectile dysfunction (N52.9) Active confirmed His current medications are effective. Problem 72900189 Memory loss (R41.3) Active confirmed He is mildly forgetful but is aware of it. It is likely vascular in origin. He remains able to care for himself at home living with his . He remains mentally competent to make decisions. Problem 95819846 Obstructive sleep apnea (G47.33) Active confirmed He reports that his pulmonary physician told him to stop using his CPAP. He is done so and not noticed any change in his medical status. He will keep me advised if this happens. Problem 744403381 Ascending aortic aneurysm (I71.2) Active confirmed He has a CT sca n of the chest and a consultation with a cardiac surgeon regularly at scheduled intervals. He has had no chest pain or dyspnea. Problem 48610810 Vitamin D deficiency (E55.9) Active confirmed We discussed hi s vitamin D supplementation. I strongly urged him to continue it. 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 It is asymptomatic. Problem 540767865 History of skin cancer (Z85.828) Active confirmed No new skin lesions were noted on today's examination. Surveillance will continue. Problem 80577475 Hoarseness (R49.0) Active confirmed His voice was m uch more normal today. The urinalysis and throat physician has increased the pantoprazole and he is doing well. Problem Osteoarthritis of knee (720171046) Osteoarthritis of knees, bilateral (M17.0) Active confirmed There was mild crepitus of his knees. He has occasional knee pain but is able to conduct all of the activities of daily life. 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 Problem 743998164 Chronic GERD (K21.9) Active confirmed His chronic ref lux symptoms are well controlled with yter-isq-fnkgade medication. Problem 63144398 Peripheral polyneuropathy (G62.9) Active confirmed Vital Signs Heart Rate 67 /min 03/29/2025 Temperature 97.2 degrees Fahrenheit 03/29/2025 Blood pressure diastolic 58 mm Hg 03/29/2025 Height 76 in 03/29/2025 Blood pressure systolic 124 mm Hg 03/29/2025 Weight 213 lbs 03/29/2025 BMI 25.92 kg/m2 03/29/2025 Encounters Encounter Location Date Provider Diagnosis Tony Greenwood III, MD [address] [place] [address] [place] [phone] 09/28/2024 Tony Greenwood Coronary artery dise ase [...] Former smoker Z87.891 Tony Greenwood III, MD [address] [place] [address] [place] [address] 02/15/2025 Tony Greenwood Hyperlipidemia E78.5 ; Popliteal [...] aortic arch Q25.47 Tony Greenwood III, MD [address] [place] [address] [place] [address] 03/29/2025 Tony Greenwood 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 [...] D deficiency E55.9 and Peripheral polyneuropathy G62.9 Tony Greenwood III, MD [address] [place] [address] [place] [address] 01/08/2025 Tony Greenwood III, MD [address] [place] [address] [place] [address] 01/18/2025 Tony Greenwood III, MD [address] [place] [address] [place] [address] 01/18/2025 Tony Greenwood III, MD [address] [place] [address] [place] [address] 01/18/2025 Tony Greenwood III, MD [address] [place] [address] [place] [address] 01/18/2025 Tony Greenwood III, MD [address] [place] [address] [place] [address] 02/15/2025 Tony Greenwood Assessments Encounter Date Diagnosis (ICD Code) Assessment Notes T reatment Notes Treatment Clinical Notes 09/28/2024 Hyperlipidemia (ICD-10 [...] of relapse and maintenance of abstinence. 03/29/2025 Popliteal artery aneurysm (ICD-10 - I72.4) [...] change in his regimen was made. 03/29/2025 Overweight (ICD-10 - E66.3) He has gained 7 pounds since his last visit and remains overweight. His appetite is good. We discussed ways to stabilize his weight at this level.. 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 02/15/2025 Vitamin D deficiency (ICD-10 - E55.9) We discussed his vitamin D supplementation. I strongly urged him to continue it. 03/29/2025 Hyperlipidemia (ICD-10 - E78.5) His lipids are currently stable and no change in her regimen was made. 09/28/2024 Iliac artery aneurysm (ICD-10 - I72.3) He has a small right-sided iliac artery aneurysm which is being observed. It is asymptomatic. 02/15/2025 Obstructive sleep apnea (ICD-10 - G47.33) He reports that his pulmonary physician told him to stop using his CPAP. He is done so and not noticed any change in his medical status. He will keep me advised if this happens. 03/29/2025 Essential hypertension (ICD-10 - I10) His blood pressure is currently stable and no change in his regimen was made. 09/28/2024 Peripheral vascular disease (ICD-10 - I73.9) [...] surgery at this time. 02/15/2025 Iliac artery aneurysm (ICD-10 - I72.3) He has a small right-sided iliac artery aneurysm which is being observed. It is asymptomatic. 03/29/2025 Iliac artery aneurysm (ICD-10 - I72.3) [...] complaints of ischemia in his legs. 03/29/2025 Peripheral vascular disease (ICD-10 - I73.9) [...] he will be aggressively pursued for diagnosis. 03/29/2025 Depression (ICD-10 - F32.9) His depression is slightly worse after the surgery. He requested that I increase the bupropion to 450 mg a day. I have done so. This is a dose. He has taken successfully in the past. 09/28/2024 BPH (benign prostatic hyperplasia) (ICD-10 - N40.0) He rises from sleep once a night to urinate. No change in his medications was needed. 02/15/2025 Former smoker (ICD-10 - Z87.891) He is highly motivated not to smoke. He has a strategy for prevention of relapse and maintenance of abstinence. 03/29/2025 BPH (benign prostatic hyperplasia) (ICD-10 - N40.0) He rises from sleep once a night to urinate. No change in his medications was needed. 09/28/2024 Chronic GERD (ICD-10 - K21.9) His chronic reflux symptoms are well controlled with ifap-ywe-takjddw medication. 02/15/2025 Coronary artery disease (ICD-10 - I25.10) He has had no angina or diaphoresis or palpitations since his last visit. His coronary artery disease is stable. He is compliant with all his medications. His lipid profile is in its target range. He was seen by cardiology, November 19, 2022 and thought to be stable. 03/29/2025 Ascending aortic aneurysm (ICD-10 - I71.2) He has a CT scan of the chest and a consultation with a cardiac surgeon regularly at scheduled intervals. He has had no chest pain or dyspnea. 09/28/2024 Ascending aortic aneurysm (ICD-10 - I71.2) [...] has taken successfully in the past. 03/29/2025 Osteoarthritis of hip, unspecified (ICD-10 - M16.9) He occasionally has pain in his right hip that requires him to stop and rest frequently. He is scheduled for surgery to replace the right hip joint on January 08, [address] Rahman at [facility]. His blood work is adequate. His electrocardiogram is unremarkable. He has had clearance from pulmonary and cardiology. He is given general medical clearance for the procedure. His risk is greater than average because of his multiple comorbidities and coronary artery disease but is acceptable. He is granted, medical clearance. 09/28/2024 Osteoarthritis of knees, bilateral (ICD-10 - M17.0) There was mild crepitus of his knees. He has occasional knee pain but is able to conduct all of the activities of daily life. 02/15/2025 BPH (benign prostatic hyperplasia) (ICD-10 - N40.0) He rises from sleep once a night to urinate. No change in his medications was needed. 03/29/2025 Osteoarthritis of knees, bilateral (ICD-10 - [...] in the chest but he appears stable. 03/29/2025 Memory loss (ICD-10 - R41.3) He is mildly forgetful but is aware of it. It is likely vascular in origin. He remains able to care for himself at home living with his . He remains mentally competent to make decisions. 09/28/2024 Former smoker (ICD-10 - Z87.891) He is highly motivated not to smoke. He has a strategy for prevention of relapse and maintenance of abstinence. 03/29/2025 Vitamin D deficiency (ICD-10 - E55.9) We discussed his vitamin D supplementation. I strongly urged him to continue it. 03/29/2025 Peripheral polyneuropathy (ICD-10 - G62.9) Plan Of Treatment Pending Test Test Name Order Date PROFILE, FASTING (COMPREHENSIVE METABOLI C) 03/29/2025 PROFILE, FASTING (COMPREHENSIVE METABOLI C) 05/21/2022 PROFILE, FASTING (COMPREHENSIVE METABOLI C) 12/18/2022 PROFILE, FASTING (COMPREHENSIVE METABOLI C) 02/15/2025 PROFILE, FASTING (COMPREHENSIVE METABOLI C) 03/28/2021 PROFILE, FASTING (COMPREHENSIVE METABOLI C) 05/18/2020 PROFILE, FASTING (COMPREHENSIVE METABOLI C) 06/28/2017 PROFILE, FASTING (COMPREHENSIVE METABOLI C) 09/28/2024 PROFILE, FASTING (COMPREHENSIVE METABOLI C) 09/26/2020 PROFILE, FASTING (COMPREHENSIVE METABOLI C) 10/05/2022 PROFILE, FASTING (COMPREHENSIVE METABOLI C) 12/27/2023 PROFILE, FASTING (COMPREHENSIVE METABOLI C) 03/04/2020 PROFILE, FASTING (COMPREHENSIVE METABOLI C) 09/20/2023 PROFILE, RANDOM (COMPREHENSIVE METABOLIC ) 08/10/2022 PROFILE, RANDOM (COMPREHENSIVE METABOLIC ) 08/19/2019 HEMOGLOBIN A1C (GLYCOHEMOGLOBIN) 021 LIPID PANEL 08/19/2019 LIPID PANEL 05/21/2022 LIPID PANEL 12/18/2022 LIPID PANEL 05/18/2020 LIPID PANEL 06/28/2017 LIPID PANEL 09/26/2020 LIPID PANEL 10/05/2022 LIPID PANEL 03/04/2020 LIPID PANEL 08/10/2022 PSA, TOTAL 09/20/2023 PSA, TOTAL 08/10/2022 PSA, TOTAL 03/29/2025 PSA, TOTAL 08/19/2019 PSA, TOTAL 03/28/2021 PSA, TOTAL 05/21/2022 PSA, TOTAL 12/18/2022 PSA, TOTAL 09/28/2024 PSA, TOTAL 05/18/2020 PSA, TOTAL 09/26/2020 PSA, TOTAL 12/27/2023 CBC w DIFF 02/15/2025 CBC w DIFF 08/10/2022 CBC w DIFF 03/29/2025 CBC w DIFF 08/19/2019 CBC w DIFF 03/28/2021 CBC w DIFF 05/21/2022 CBC w DIFF 12/18/2022 CBC w DIFF 06/28/2017 CBC w DIFF 09/28/2024 CBC w DIFF 05/18/2020 CBC w DIFF 10/05/2022 CBC w DIFF 09/26/2020 CBC w DIFF 03/04/2020 SED RATE (ESR) 02/15/2025 MRI BRAIN NO CONTRAST 10/30/2016 Echocardiogram 08/28/2021 PFT with DLCO 07/09/2017 CBC WITH AUTO DIFF 09/20/2023 CBC WITH AUTO DIFF 12/27/2023 SARS COV2 RNA RT PCR 04/11/2020 Lipid Panel 12/27/2023 Lipid Panel 09/20/2023 Lipid Panel 03/29/2025 Lipid Panel 02/15/2025 Lipid Panel 09/28/2024 Vitamin D 25-OH Total 02/15/2025 INR WHOLE BLOOD POC 03/28/2021 CT head/brain w con 09/28/2020 CT head/brain wo/w con 10/07/2020 Next Appt Details Provider Name:Tony Gilletterne , 06/28/2025 10:00:00 AM, [address] [place] [address] [place], [address], [address], Provider Name:Tony Greenwood , 09/29/2025 03:00:00 PM, [address] [facility] [place], [address], [address], Insurance Providers Payer Name Payer Address Payer Phone Subscriber Number Group Number Insured Name Patient Relationship to Insured Coverage Start Date Coverage End Date [employer] [address] [place] [address] [id number] Efrain Pedro Self - patient is the insured 2 [employer] [address] [place] [phone] [id number] Efrain Pedro Self - patient is the insured Medical (General) History Medical History History ICD Code left popliteal artery aneurysm, repaired depression hyperlipidemia CAD- 1997 non-eluting stent RCA, CA caracts scc right eyelid and forehead former smoker fractured metatarsal right-sided aortic arch 4.5 cm ascending aortic aneurysm diastasis rectus Surgical History Surgery Date(Month/Year) Right popliteal aneurism stent 06/2024 Right hip surgery 12/2022 left cheek lesion removal [facility] 2021 repair popliteal aneurysm 01/2004 colonoscopy,negative 09/2009 Hospitalization History Reason Date(Month/Year) stent placement 2017
--- OUTSIDE RECORDS SUMMARY | 2025-05-12 08:48 | XMS_ITS | Clinical Summary ---
Author Organization [employer] [facility] Address [address] [place] [address] [address] [place] [address] Care Team Providers Care Drive Away Driver Name Role Phone Unavailable Primary Care Provider [...] this topic Insurance DENTAL - [employer] [place] [facility] [place] [address] DENTAL - [employer] DENTAL [facility]
== END 2025-05-12 08:50 | disposition home or self-care (01) ==
LOC: HO.HPS 08:22
PROVIDERS: PCP Internal Medicine Medical Oncology; Visit Provider Hospitalist
DX: J44.1 Chronic obstructive pulmonary disease with (acute) exacerbation (principal); G47.33 Obstructive sleep apnea (adult) (pediatric); Z99.89 Dependence on other enabling machines and devices; R91.8 Other nonspecific abnormal finding of lung field; G47.31 Primary central sleep apnea; G47.61 Periodic limb movement disorder
CPT/HCPCS: 99214; G2211

== ENCOUNTER → 2025-05-12 08:22 | Outpatient (BNVA) | payer MEDICARE, OTHER, SELFPAY | PROVIDERS: PCP Internal Medicine Medical Oncology; Visit Provider Hospitalist | DX: J44.1 Chronic obstructive pulmonary disease with (acute) exacerbation (principal); G47.33 Obstructive sleep apnea (adult) (pediatric); G47.31 Primary central sleep apnea; R91.8 Other nonspecific abnormal finding of lung field; G47.61 Periodic limb movement disorder; Z99.89 Dependence on other enabling machines and devices | CPT/HCPCS: 99212 ==

== ENCOUNTER 2025-05-24 09:30 | Outpatient (AMB) | payer MEDICARE, OTHER, SELFPAY ==
--- OUTSIDE RECORDS SUMMARY | 2024-09-28 10:00 | XMS_ITS ---
Author Organization Tony Greenwood III, MD Address [address] [place] [address] DR BENZ Alexander [place] [id number] Care Team Providers Care Semaphore Operator Name Role Phone Dr. Tony Greenwood III Primary Care Provider Allergies Allergen (clinical drug ingredient) Drug/Non Drug Allergy documented on EMR Reaction Allergy Type Onset Date Status No Known Drug Allergy Unknown Drug Allergy Active Results Component Value Reference Range Notes URINE DIP STICK Reviewed date:09/28/2024 03:49:18 PM Interpretation: Performing Lab: Notes/Report: SG 1.010 1.005 - 1.025 pH 6.0 5.0 - 9.0 SALOME Negative Negative - NIT Negative Negative - PRO 15 Negative - Trace GLU Negative Negative - KET Negative Negative - UBG 0.2 0.1 - 1.8 ANGEL Negative 0.2 - 1.3 BLD Negative Negative - Reason For Referral Reason R/O dementia Diagnosis 1 Memory loss (R41.3) Referral Organization Tony Greenwood III, MD Referring Provider First Name Tony Referring Provider Last Name Krystyna Referring Provider Speciality Internal M edicine Referred Provider Jessica Mcghee Referred Provider Specialty Sleep Medici ne General Notes Rachel Rodriguez CMA 09/30 10:14:05 AM > Ref/demo/progress note/labs faxed to [facility] 11/04/2024 01:58:24 PM > Spoke Wanda at Sleep Medicine regarding referral for patient. Patient had called and left a message to see if they have received the referral. They did not receive the referral and would like it faxed to [phone] Referral Priority Routine Referral Appointment Date 11/16/2024 Reason leg weakness gait training muscle strengthening Diagnosis 1 Peripheral polyneuro alexis (G62.9) Diagnosis 2 Weakness of lower ex tremity, unspecified laterality (R29.898) Referral Organization Tony Greenwood III, MD Referring Provider First Name Tony Referring Provider Last Name Krystyna Referring Provider Speciality Internal M edicine Referred Provider [facility] Physical Therapy Janusz Referred Provider Specialty Physical The rapist General Notes SRachel SLUBBER RUNNER 09/28 11:27:33 AM > ref/demo/progress note faxed to [facility] PT dept Referral Priority Routine Referral Appointment Date 10/13/2024 REASON FOR VISIT Annual Exam Medications Medication SIG (Take, Route, Frequency, Duration) Notes Start Date End Date Status Finasteride 5 MG 1 tablet Orally Once a day Active Anoro Ellipta 62.5-25 MCG/ACT Inhalation Active Metoprolol Succinate ER 50 MG TAKE 1 TABLET BY MOUTH DAILY Oral Active Ciclopirox Olamine 0.77 % External Active Ketoconazole 2 % 1 application Lpta ally Once a day 03/15/2023 Active CeleBREX 100 MG 1 capsule with food Orally Once a day Active Gabapentin 100 MG 2 capsule Orally Twi ce a day Active Fluticasone Propionate 0.005 % 1 application to affected area Externally Twice a day 02/11/2018 Active Antioxidant Active CoQ-10 Active buPROPion HCl ER (XL) 300 MG TAKE 1 TABLET BY MOUTH EVERY DAY IN THE MORNING FOR 90 DAYS Active Vitamin D Active Zinc Skyler-Benzyl Ofk-Czlio-Jfe Active Pantoprazole Sodium 40 MG TAKE 1 TABLET BY MOUTH EVERY DAY FOR 90 DAYS Active Vitamin C Active Celecoxib 200 MG TAKE 1 CAPSULE BY MO UTH EVERY DAY WITH FOOD FOR 30 DAYS Active buPROPion HCl ER (XL) 150 MG TAKE 1 TABLET BY MOUTH EVERY DAY IN THE MORNING FOR 90 DAYS Active Clopidogrel Bisulfate 75 MG TAKE 1 TABLE T BY MOUTH EVERY DAY Active Doxycycline Hyclate 100 MG TAKE 1 TABLET BY MOUTH EVERY DAY Active Social History Tobacco Use: Social History Observation Description Date Details (start date - stop date) Former Smoker NA - NA Tobacco Control (Standard) Question Answer Notes Tobacco use: Former smoker How long has it been since you last smoked? Grea ter than 10 years Additional Findings: Tobacco non-user Ex-cigaret te smoker AUDIT-C (Standard) Question Answer Notes Did you have a drink containing alcohol in the p ast year? 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 His coronary artery disease is stable. He is compliant with all his medications. His lipid profile is in its target range. He was seen by cardiology, November 19, 2022 and thought to be stable. 09/28/2024 Hyperlipidemia (ICD-10 - E78.5) His lipids have been well controlled. A fasting lipid profile was ordered prior to his next visit. No change in his medications was made. 09/28/2024 Essential hypertension (ICD-10 - I10) His blood pressure today is 99/69. No change in his regimen as needed. 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 09/28/2024 Iliac artery aneurys m (ICD-10 - I72.3) He has a small right-sided iliac artery aneurysm which is being observed. It is asymptomatic. 09/28/2024 Peripheral vascular disease (ICD-10 - I73.9) He has iliac artery and popliteal artery aneurysm, some of which have been repaired. He has claudication but is able to conduct all of the activities of daily living. His vascular surgeon has recommended correction of the remaining popliteal artery. The patient is not certain he wants to undergo that surgery at this time. 09/28/2024 History of skin cancer (ICD-10 - Z85.828) No new skin lesions were noted on today's examination. Surveillance will continue. 09/28/2024 Overweight (ICD-10 - E66.3) His body mass index is 26. We discussed diet and nutrition. We made a plan to lose weight at a rate of one half of a pound per week.He has lost 12 pounds since his last visit. 09/28/2024 BPH (benign prostati c hyperplasia) (ICD-10 - N40.0) He rises from sleep once a night to urinate. No change in his medications was needed. 09/28/2024 Chronic GERD (ICD-10 - K21.9) His chronic reflux symptoms are well controlled with xcgc-cgb-mxtttmm medication. 09/28/2024 Ascending aortic aneurysm (ICD-10 - I71.2) He has a CT scan of the chest and a consultation with a cardiac surgeon regularly at scheduled intervals. He has had no chest pain or dyspnea. 09/28/2024 Osteoarthritis of knees, bilateral (ICD-10 - M17.0) There was mild crepitus of his knees. He has occasional knee pain but is able to conduct all of the activities of daily life. 09/28/2024 Memory loss (ICD-10 - R41.3) He is mildly forgetful but is aware of it. It is likely vascular in origin. He remains able to care for himself at home living with his . He remains mentally competent to make decisions. 09/28/2024 Former smoker (ICD-1 0 - Z87.891) He is highly motivated not to smoke. He has a strategy for prevention of relapse and maintenance of abstinence. Plan Of Treatment Medication Medication Name Sig Start Date Stop Date Notes Finasteride 5 MG 1 tablet Orally Once a day Anoro Ellipta 62.5-25 MCG/ACT Inhalation Metoprolol Succinate ER 50 MG TAKE 1 TAB LET BY MOUTH DAILY Oral Ciclopirox Olamine 0.77 % External Ketoconazole 2 % 1 application Lpta ally Once a day 03/15/2023 CeleBREX 100 MG 1 capsule with food Orally Once a day Gabapentin 100 MG 2 capsule Orally Twice a day Fluticasone Propionate 0.005 % 1 applica tion to affected area Externally Twice a day 02/11/2018 Antioxidant CoQ-10 buPROPion HCl ER (XL) 300 MG TAKE 1 TABL ET BY MOUTH EVERY DAY IN THE MORNING FOR 90 DAYS Vitamin D Zinc Skyler-Benzyl Wnx-Kwyqh-Ulb Pantoprazole Sodium 40 MG TAKE 1 TABLET BY MOUTH EVERY DAY FOR 90 DAYS Vitamin C Celecoxib 200 MG TAKE 1 CAPSULE BY MO UTH EVERY DAY WITH FOOD FOR 30 DAYS buPROPion HCl ER (XL) 150 MG TAKE 1 TABL ET BY MOUTH EVERY DAY IN THE MORNING FOR 90 DAYS Clopidogrel Bisulfate 75 MG TAKE 1 TABLE T BY MOUTH EVERY DAY Doxycycline Hyclate 100 MG TAKE 1 TABLET BY MOUTH EVERY DAY Pending Test Test Name Order Date PROFILE, FASTING (COMPREHENSIVE METABOLI C) 09/28/2024 PSA, TOTAL 09/28/2024 CBC w DIFF 09/28/2024 Lipid Panel 09/28/2024 Referrals Referral Date Details 09/28/2024 09/28/2024, R/O brooke ntia, Jessica Athreya 09/28/2024 09/28/2024, leg weak ness gait training muscle strengthening, [facility] Next Appt Details Follow Up: 4 Months, Reason: ov review labs Provider Name:Tony Greenwood , 06/28/2025 10:00:00 AM, [address] [facility] [place], [place], [phone], Provider Name:Tony Greenwood , 09/29/2025 03:00:00 PM, [address] [place] [address] [place], [phone], Progress Notes * Efrain PEDRO IIDOB: (84 yo M)Acc No.[id number]:09/28/2024 Progress Notes Patient: Efrain WALLER II Provider: Tyrone Greenwood MD :1940 A ge:84 Y S ex:Male Date:09/28/2024 Address:[address] [place] [address], [place], [id number] Subjective: * Chief Complaints: * A nnual Exam * HPI: D epression Screening: Patti mcrae returns at the age of 84 for his annual physical examination. He has had no difficulty with the recently inserted stent in his right popliteal artery aneurysm. He sees his vascular surgeon regularly. He says his balance is unnsteady and he wobbles from time to time but he has had no falls. He has made a request to be referred to physical therapy for gait training and muscle strengthening which we have done.He denies any chest pain, palpitations syncope or dyspnea on exertion. He feels generally well. He sleeps well and has a good appetite. He denies any significant joint pains. He is completely retired at this point. PHQ-9 L ittle interest or pleasure in doing things?Several days F eeling down, depressed, or hopeless N ot at all T rouble falling or staying asleep, or sleeping too much N ot at all F eeling tired or having little energy S everal days P oor appetite or overeating N ot at all F eeling bad about yourself or that you are a failure, or have let yourself or your family down S everal days T rouble concentrating on things, such as reading the newspaper or watching television N ot at all M oving or speaking so slowly that other people could have noticed; or the opposite, being so fidgety or restless that you have been moving around a lot more than usual N ot at all T houghts that you would be better off or of hurting yourself in some way N ot at all T otal Score 3 I nterpretation M inimal Depression C OVID-19 Screening: Questions H ave you had any new onset fever, chills, cough, congestion, sore throat, shortness of breath, muscle aches? N o S BORIS Questions: SDOH Questions I n the past year have you been worried about losing your housing? N o I n the past year have you or any family members you live with been unable to get any of the following when it was really needed? Check all that apply: N one F all Risk Screening: Fall History H ave you had any falls with injury in the past year? N o H ave you had two or more falls in the past year? N o F all Risk Assessment: * ROS: G eneral/Constitutional: pain o nly normal aches and pains. C hills d enies.?Fatigue a dmits. F ever d enies. E NT: Decreased hearing i n both ears. R espiratory: Cough d enies. C ardiovascular: Chest pain with exertion d enies. D yspnea on exertion?with prolonged activity. S hortness of breath d enies. G astrointestinal: Constipation o ccasional. D ecreased appetite d enies. D iarrhea d enies. H eartburn d enies. N ausea d enies. R ectal bleeding d enies. V omiting d enies. H ematology: bruising d enies. p etechiae d enies. S wollen glands n one have been noted. G enitourinary: Frequent urination o nce a night. M usculoskeletal: Muscle aches d enies. P ainful joints d enies. S ciatica d enies. W eakness d enies. S kin: Itching d enies. R michelle d enies. S kin lesion(s)?denies. N eurologic: Difficulty speaking d enies. D izziness d enies.?Headache d enies. L ow back pain d enies. P sychiatric: Depressed mood w hich is mild. * Medical History: * Surgical History: c olonoscopy,negative 09/2009repair popliteal aneurysm 01/2004left cheek lesion removal [facility] 2Right hip surgery 12/2022Right popliteal aneurism stent 06/2024 * Hospitalization/Major Diagno stic Procedure: s tent placement 2017 * Family History: F ather: , Malignant melanoma. M other: , hypertension, diagnosed with HTN. His father at 63 of a malignant melanoma and his mother at 90 of an embolism. She was hyprtensive. One sibling has melanoma, hypothyroidism, arthritis and CAD. He is not aware of any family history of substance use disorder or mental illness or addiction. He has a personal history of depression. * Social History: T obacco Use: T obacco Control (Standard) T obacco use: F ormer smoker H ow long has it been since you last smoked??Greater than 10 years A dditional Findings: Tobacco non-user E x-cigarette smoker D rugs/Alcohol: D rugs H ave you used drugs other than those for medical reasons in the past 12 months? N o D rug/Alcohol: A POLO-C (Standard) D id you have a drink containing alcohol in the past year? 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. 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 He was born [facility]. He is now working at the [employer]. * Medications: T akingbuPROPion HCl ER (XL) 150 MG Tablet Extended Release 24 Hour TAKE 1 TABLET BY MOUTH EVERY DAY IN THE MORNING FOR 90 DAYS buPROPion HCl ER (XL) 300 MG Tablet Extended Release 24 Hour TAKE 1 TABLET BY MOUTH EVERY DAY IN THE MORNING FOR 90 DAYS Pantoprazole Sodium 40 MG Tablet Delayed Release TAKE 1 TABLET BY MOUTH EVERY DAY FOR 90 DAYS Vitamin C Vitamin D Zinc Skyler-Benzyl Wvw-Uvzbs-Xgb Antioxidant CoQ-10 Gabapentin 100 MG Capsule 2 capsule Orally Twice a day Fluticasone Propionate 0.005 % Ointment 1 application to affected area Externally Twice a day CeleBREX 100 MG Capsule 1 capsule with food Orally Once a day Metoprolol Succinate ER 50 MG Tablet Extended Release 24 Hour TAKE 1 TABLET BY MOUTH DAILY Oral Finasteride 5 MG Tablet 1 tablet Orally Once a day Anoro Ellipta 62.5-25 MCG/ACT Aerosol Powder Breath Activated Inhalation Ciclopirox Olamine 0.77 % Cream External Ketoconazole 2 % Cream 1 application Externally Once a day Celecoxib 200 MG Capsule TAKE 1 CAPSULE BY MOUTH EVERY DAY WITH FOOD FOR 30 DAYS Doxycycline Hyclate 100 MG Tablet TAKE 1 TABLET BY MOUTH EVERY DAY Clopidogrel Bisulfate 75 MG Tablet TAKE 1 TABLET BY MOUTH EVERY DAY Medication List reviewed and reconciled with the patientTaking buPROPion HCl ER (XL) 150 MG Tablet Extended Release 24 Hour TAKE 1 TABLET BY MOUTH EVERY DAY IN THE MORNING FOR 90 DAYS Taking buPROPion HCl ER (XL) 300 MG Tablet Extended Release 24 Hour TAKE 1 TABLET BY MOUTH EVERY DAY IN THE MORNING FOR 90 DAYS Taking Pantoprazole Sodium 40 MG Tablet Delayed Release TAKE 1 TABLET BY MOUTH EVERY DAY FOR 90 DAYS Taking Vitamin C Taking Vitamin D Taking Zinc Skyler-Benzyl Hgt-Ypquy-Kxf Taking Antioxidant Taking CoQ-10 Taking Gabapentin 100 MG Capsule 2 capsule Orally Twice a day Taking Fluticasone Propionate 0.005 % Ointment 1 application to affected area Externally Twice a day Taking CeleBREX 100 MG Capsule 1 capsule with food Orally Once a day Taking Metoprolol Succinate ER 50 MG Tablet Extended Release 24 Hour TAKE 1 TABLET BY MOUTH DAILY Oral Taking Finasteride 5 MG Tablet 1 tablet Orally Once a day Taking Anoro Ellipta 62.5-25 MCG/ACT Aerosol Powder Breath Activated Inhalation Taking Ciclopirox Olamine 0.77 % Cream External Taking Ketoconazole 2 % Cream 1 application Externally Once a day Taking Celecoxib 200 MG Capsule TAKE 1 CAPSULE BY MOUTH EVERY DAY WITH FOOD FOR 30 DAYS Taking Doxycycline Hyclate 100 MG Tablet TAKE 1 TABLET BY MOUTH EVERY DAY Taking Clopidogrel Bisulfate 75 MG Tablet TAKE 1 TABLET BY MOUTH EVERY DAY Medication List reviewed and reconciled with the patient * Allergies: N o Known Drug Allergyno[Allergies Verified] Objective: * Vitals: H t: 76, Wt:215, BMI:26.17, BP:96/58, HR:71, Temp:97.2, Wt-k.52. * P ast Orders: Lab:Prostate Specific Antige n * Collection Date 09/14/2024 12/18/2022 08/10/2022 Collection Time 01:41 PM 11:57 AM 12:54 PM Order Date 09/14/2024 12/18/2022 08/10/2022 Prostate Specific Antigen 1.47 (Ref Range: <0.05-4.0 ng/mL) 1.49 (Ref Range: <0.05-4.0 ng/mL) 1.61 (Ref Range: <0.05-4.0 ng/mL) * Lab:Lipid Panel * Collection Date 09/14/2024 06/11/2023 12/18/2022 Collection Time 01:41 PM 11:14 AM 11:57 AM Order Date 09/14/2024 06/11/2023 12/18/2022 Triglycerides 233 H (Ref Range: <150 mg/dL) 114 (Ref Range: <150 mg/dL) 113 (Ref Range: mg/dL) Cholesterol 115 (Ref Range: <200 mg/dL) 106 (Ref Range: <200 mg/dL) 124 (Ref Range: mg/dL) LDL Cholesterol Calculated 34 (Ref Range: <100 mg/dL) 53 (Ref Range: <100 mg/dL) 66 (Ref Range: mg/dl) HDL Cholesterol 35 L (Ref Range: >40 mg/dL) 31 L (Ref Range: >40 mg/dL) 36 (Ref Range: mg/dL) * Lab:Comprehensive Mcintosh. Pane l Fast * Collection Date 09/14/2024 06/11/2023 12/18/2022 Collection Time 01:41 PM 11:14 AM 11:57 AM Order Date 09/14/2024 06/11/2023 12/18/2022 Sodium 146 H (Ref Range: 135-145 mmol/L) 142 (Ref Range: 135-145 mmol/L) 143 (Ref Range: 135-145 mmol/L) Bilirubin Total 1.1 H (Ref Range: 0.0-1.0 mg/dL) 1.0 (Ref Range: 0.0-1.0 mg/dL) 1.2 H (Ref Range: 0.0-1.0 mg/dL) Aspartate Amino Transferase 31 (Ref Range: 5-37 U/L) 21 (Ref Range: 5-37 U/L) 21 (Ref Range: 5-37 U/L) Alanine Aminotransferase 32 (Ref Range: 0-40 U/L) 15 (Ref Range: 0-40 U/L) 17 (Ref Range: 0-40 U/L) Total Protein 7.3 (Ref Range: 6.5-8.0 g/dL) 6.6 (Ref Range: 6.5-8.0 g/dL) 7.3 (Ref Range: 6.5-8.0 g/dL) Albumin Level 4.1 (Ref Range: 3.5-5.0 g/dL) 3.8 (Ref Range: 3.5-5.0 g/dL) 4.4 (Ref Range: 3.5-5.0 g/dL) Alkaline Phosphatase 71 (Ref Range: 39-117 U/L) 84 (Ref Range: 39-117 U/L) 92 (Ref Range: 39-117 U/L) Potassium 5.0 (Ref Range: 3.3-5.1 mmol/L) 4.3 (Ref Range: 3.3-5.1 mmol/L) 5.4 H (Ref Range: 3.3-5.1 mmol/L) Chloride 110 H (Ref Range: 96-108 mmol/L) 109 H (Ref Range: 96-108 mmol/L) 109 H (Ref Range: 96-108 mmol/L) Carbon Dioxide 29 (Ref Range: 22-29 mmol/L) 28 (Ref Range: 22-29 mmol/L) 28 (Ref Range: 22-29 mmol/L) Anion Gap 12 (Ref Range: 12-20) 9 L (Ref Range: 12-20) 11 L (Ref Range: 12-20) Blood Urea Nitrogen 30 H (Ref Range: 9-16 mg/dL) 30 H (Ref Range: 9-16 mg/dL) 21 H (Ref Range: 9-16 mg/dL) Creatinine 1.54 H (Ref Range: 0.5-1.4 mg/dL) 1.24 (Ref Range: 0.5-1.4 mg/dL) 1.20 (Ref Range: 0.5-1.4 mg/dL) Estimated Glomerular Filt Rate 43 56 58 Glucose Fasting 66 (Ref Range: 60-99 mg/dL) 94 (Ref Range: 60-99 mg/dL) 95 (Ref Range: 60-99 mg/dL) Calcium 9.5 (Ref Range: 8.4-10.2 mg/dL) 9.5 (Ref Range: 8.4-10.2 mg/dL) 9.8 (Ref Range: 8.4-10.2 mg/dL) * Lab:Complete Blood Count Aut o Diff * Collection Date 09/14/2024 06/11/2023 01/11/2023 Collection Time 01:41 PM 11:14 AM 05:03 AM Order Date 09/14/2024 06/11/2023 01/11/2023 White Blood Count 7.4 (Ref Range: 4.8-10.8 X10*3/uL) 7.0 (Ref Range: 4.8-10.8 X10*3/uL) 9.3 (Ref Range: 4.8-10.8 X10*3/uL) Red Blood Count 4.17 L (Ref Range: 4.60-5.80 X10*6/uL) 4.26 L (Ref Range: 4.60-5.80 X10*6/uL) 3.07 L (Ref Range: 4.60-5.80 X10*6/uL) Hemoglobin 14.0 (Ref Range: 14.0-18.0 g/dl) 13.3 L (Ref Range: 14.0-18.0 g/dl) 10.0 L (Ref Range: 14.0-18.0 g/dl) Hematocrit 42.3 (Ref Range: 42.0-52.0 %) 40.9 L (Ref Range: 42.0-52.0 %) 30.1 L (Ref Range: 42.0-52.0 %) Mean Corpuscular Volume 101.4 H (Ref Range: 80.0-98.0 fL) 96.0 (Ref Range: 80.0-98.0 fL) 98.0 (Ref Range: 80.0-98.0 fL) Mean Corpuscular Hemoglobin 33.6 H (Ref Range: 27.0-33.0 pg) 31.2 (Ref Range: 27.0-33.0 pg) 32.6 (Ref Range: 27.0-33.0 pg) Mean Corpuscular HGB Conc 33.1 (Ref Range: 31.0-36.0 g/dl) 32.5 (Ref Range: 31.0-36.0 g/dl) 33.2 (Ref Range: 31.0-36.0 g/dl) Red Cell Distribution Width 13.3 (Ref Range: 11.0-16.0 %) 14.1 (Ref Range: 11.0-16.0 %) 13.2 (Ref Range: 11.0-16.0 %) Platelet Count 252 (Ref Range: 160-400 X10*3/uL) 218 (Ref Range: 160-400 X10*3/uL) 165 (Ref Range: 160-400 X10*3/uL) Mean Platelet Volume 9.5 (Ref Range: 9.4-12.4 fL) 9.7 (Ref Range: 9.4-12.4 fL) 9.1 L (Ref Range: 9.4-12.4 fL) Neutrophils Percent Auto 58.2 (Ref Range: 45-73 %) 57.4 (Ref Range: 45-73 %) 71.0 (Ref Range: 45-73 %) Imm Gran Pct Auto 0.4 (Ref Range: 0.0-0.4 %) 0.3 (Ref Range: 0.0-0.4 %) 0.9 H (Ref Range: 0.0-0.4 %) Lymphocytes Percent Auto 26.4 (Ref Range: 20-40 %) 26.3 (Ref Range: 20-40 %) 14.5 L (Ref Range: 20-40 %) Monocytes Percent Auto 10.6 (Ref Range: 2-11 %) 10.9 (Ref Range: 2-11 %) 10.4 (Ref Range: 2-11 %) Eosinophils Percent Auto 3.9 (Ref Range: 0-4 %) 4.5 H (Ref Range: 0-4 %) 2.8 (Ref Range: 0-4 %) Basophils Percent Auto 0.5 (Ref Range: 0-2 %) 0.6 (Ref Range: 0-2 %) 0.4 (Ref Range: 0-2 %) NRBC Pct Auto 0.0 (Ref Range: 0.0-0.2 /100WBC) 0.0 (Ref Range: 0.0-0.2 /100WBC) 0.0 (Ref Range: 0.0-0.2 /100WBC) Neutrophils Absolute Auto 4.3 (Ref Range: 2.0-8.3 x10*3/uL) 4.0 (Ref Range: 2.0-8.3 x10*3/uL) 6.6 (Ref Range: 2.0-8.3 x10*3/uL) Imm Gran Abs Auto 0.03 (Ref Range: 0.00-0.03 X10*3/uL) 0.02 (Ref Range: 0.00-0.03 X10*3/uL) 0.08 H (Ref Range: 0.00-0.03 X10*3/uL) Lymphocytes Absolute Auto 2.0 (Ref Range: 1.2-4.9 X10*3/uL) 1.8 (Ref Range: 1.2-4.9 X10*3/uL) 1.3 (Ref Range: 1.2-4.9 X10*3/uL) Monocytes Absolute Auto 0.8 (Ref Range: 0.1-1.2 X10*3/uL) 0.8 (Ref Range: 0.1-1.2 X10*3/uL) 1.0 (Ref Range: 0.1-1.2 X10*3/uL) Eosinophils Absolute Auto 0.3 (Ref Range: 0.0-0.4 X10*3/uL) 0.3 (Ref Range: 0.0-0.4 X10*3/uL) 0.3 (Ref Range: 0.0-0.4 X10*3/uL) Basophils Absolute Auto 0.0 (Ref Range: 0.0-0.2 X10*3/uL) 0.0 (Ref Range: 0.0-0.2 X10*3/uL) 0.0 (Ref Range: 0.0-0.2 X10*3/uL) NRBC Abs Auto 0.000 (Ref Range: 0.0-0.012 X10*3/uL) 0.000 (Ref Range: 0.0-0.012 X10*3/uL) 0.000 (Ref Range: 0.0-0.012 X10*3/uL) * Lab:URINE DIP STICK * Collection Date 09/28/2024 03/15/2023 01/12/2022 Order Date 09/28/2024 03/15/2023 01/12/2022 SG 1.010 (Ref Range: 1.005 - 1.025) 1.020 (Ref Range: 1.005 - 1.025) 1.020 pH 6.0 (Ref Range: 5.0 - 9.0) 5.0 (Ref Range: 5.0 - 9.0) 6 SALOME Negative (Ref Range: Negative -) Negative (Ref Range: Negative -) neg NIT Negative (Ref Range: Negative -) Negative (Ref Range: Negative -) neg PRO 15 (Ref Range: Negative - Trace) 15 (Ref Range: Negative - Trace) trace GLU Negative (Ref Range: Negative -) Negative (Ref Range: Negative -) normal KET Negative (Ref Range: Negative -) 50 (Ref Range: Negative -) neg UBG 0.2 (Ref Range: 0.1 - 1.8) 0.2 (Ref Range: 0.1 - 1.8) normal ANGEL Negative (Ref Range: 0.2 - 1.3) Negative (Ref Range: 0.2 - 1.3) neg BLD Negative (Ref Range: Negative -) Negative (Ref Range: Negative -) neg Menstrating NR N/A n/a * Examination: G eneral Examination: GENERAL APPEARANCE: p leasant, well nourished, well developed, in no acute distress, calm and relaxed, overweight, elderly man, overweight, elderly man. HEAD: a traumatic, normocephalic, Small scar left cheek.? EYES: e garret, perrla, anicteric, conjugate. EARS: n ormal. NOSE: s eptum intact. ORAL CAVITY: n ormal, unremarkable. NECK/THYROID: n o jugular venous distention, no carotid bruit, thyroid normal. LYMPH NODES: n o enlarged lymph nodes,spleen normal. SKIN: n o suspicious lesions, anicteric. HEART: n o clicks, gallops, murmurs, or rubs, regular rhythm, S1, S2 normal, no s3, or vascular bruits. LUNGS: c lear to auscultation . BREASTS: no masses palpable bilaterally. ABDOMEN: b owel sounds normal, no ascites, no organomegaly, no mass, overweight, overweight. RECTAL EXAM: n ot examined. MUSCULOSKELETAL: e xtremities unremarkable, no clubbing, cyanosis or edema, Surgical scar right hip, no ulcerations, feet pink and warm. PERIPHERAL PULSES: D iminished in the lower extremities.? NEUROLOGIC: a lert and oriented, cranial nerves 2-12 grossly intact, deep tendon reflexes 2+ symmetrical, motor strength normal upper and lower extremities, sensory exam intact, Mild defects in memory. PSYCH: a lert, oriented, Mild defects in memory. Assessment: * Assessment: 1. C oronary artery disease - I25.10 (Primary) N otes :He has had no angina or diaphoresis or palpitations since his last visit. His coronary artery disease is stable. He is compliant with all his medications. His lipid profile is in its target range. He was seen by cardiology, November 19, 2022 and thought to be stable. 2 . H yperlipidemia - E78.5 N otes :His lipids have been well controlled. A fasting lipid profile was ordered prior to his next visit. No change in his medications was made. 3 . E ssential hypertension - I10 N otes :His blood pressure today is 99/69. No change in his regimen as needed. 4 . 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 5 . 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 It is asymptomatic. 6 . P eripheral vascular disease - I73.9 N otes :He has iliac artery and popliteal artery aneurysm, some of which have been repaired. He has claudication but is able to conduct all of the activities of daily living. His vascular surgeon has recommended correction of the remaining popliteal artery. The patient is not certain he wants to undergo that surgery at this time. 7 . H istory of skin cancer - Z85.828 N otes :No new skin lesions were noted on today's examination. Surveillance will continue. 8 . O verweight - E66.3 N otes :His body mass index is 26. We discussed diet and nutrition. We made a plan to lose weight at a rate of one half of a pound per week.He has lost 12 pounds since his last visit. 9 . B PH (benign prostatic hyperplasia) - N40.0 N otes :He rises from sleep once a night to urinate. No change in his medications was needed. 1 0. C hronic GERD - K21.9 N otes :His chronic reflux symptoms are well controlled with rohc-pvk-dantttu medication. 1 1. 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 He has had no chest pain or dyspnea. 1 2. O steoarthritis of knees, bilateral - M17.0 N otes :There was mild crepitus of his knees. He has occasional knee pain but is able to conduct all of the activities of daily life. 1 3. M meet loss - R41.3 N otes :He is mildly forgetful but is aware of it. It is likely vascular in origin. He remains able to care for himself at home living with his . He remains mentally competent to make decisions. 1 4. F kei smoker - Z87.891 N otes :He is highly motivated not to smoke. He has a strategy for prevention of relapse and maintenance of abstinence. Plan: * Treatment: 2. O thers Continue Clopidogrel Bisulfate Tablet, 75 MG, TAKE 1 TABLET BY MOUTH EVERY DAY; C ontinue Doxycycline Hyclate Tablet, 100 MG, TAKE 1 TABLET BY MOUTH EVERY DAY; C ontinue Celecoxib Capsule, 200 MG, TAKE 1 CAPSULE BY MOUTH EVERY DAY WITH FOOD FOR 30 DAYS; C ontinue buPROPion HCl ER (XL) Tablet Extended Release 24 Hour, 150 MG, TAKE 1 TABLET BY MOUTH EVERY DAY IN THE MORNING FOR 90 DAYS; Continue buPROPion HCl ER (XL) Tablet Extended Release 24 Hour, 300 MG, TAKE 1 TABLET BY MOUTH EVERY DAY IN THE MORNING FOR 90 DAYS; C ontinue Pantoprazole Sodium Tablet Delayed Release, 40 MG, TAKE 1 TABLET BY MOUTH EVERY DAY FOR 90 DAYS; C ontinue Vitamin C; C ontinue Vitamin D;?Continue Zinc Skyler-Benzyl Arv-Yqryo-Yep; C ontinue Antioxidant; C ontinue CoQ-10; C ontinue Gabapentin Capsule, 100 MG, 2 capsule Orally Twice a day; C ontinue Fluticasone Propionate Ointment, 0.005 %, 1 application to affected area, Externally, Twice a day; C ontinue CeleBREX Capsule, 100 MG, 1 capsule with food, Orally, Once a day; C ontinue Metoprolol Succinate ER Tablet Extended Release 24 Hour, 50 MG, TAKE 1 TABLET BY MOUTH DAILY, Oral; C ontinue Finasteride Tablet, 5 MG, 1 tablet, Orally, Once a day; C ontinue Anoro Ellipta Aerosol Powder Breath Activated, 62.5-25 MCG/ACT, Inhalation; C ontinue Ciclopirox Olamine Cream, 0.77 %, External; C ontinue Ketoconazole Cream, 2 %, 1 application, Externally, Once a day. ? Referral To:[facility] Physical Therapist Reason:leg weakness gait training muscle strengthening * Labs: * L ab: PROFILE, FASTING (COMPREHENSIVE METABOLIC) L ab: PSA, TOTAL L ab: CBC w DIFF L ab: Lipid Panel L ab: URINE DIP STICK (Collection Date & Time - 09/28/2024) Value Reference Range S G 1.010 1.005 - 1.025 * p H 6.0 5.0 - 9.0 * L EU Negative Negative - * N IT Negative Negative - * P RO 15 Negative - Trace * G SARAI Negative Negative - * K ET Negative Negative - * U BG 0.2 0.1 - 1.8 * B IL Negative 0.2 - 1.3 * B LD Negative Negative - * Procedure Codes: 8 1002 URINE-NO MICRO * Preventive Medicine: Counseling: C are goal follow-up plan: Counseling for abnormal BMI given Y es Above Normal BMI Follow-up D ietary management education, guidance, and counseling, Dietary needs education, Exercise promotion: strength training S moking/Tobacco Use Patient counseled on the dangers of tobacco use and urged to quit. 0 09/28/2024 * Follow Up: 4 Months (Reason: ov review labs) * Images: * Sign off status: Completed true * Provider: Tyrone Greenwood MD Date: 0 09/28/2024 Generated for Oralia buckley/Jose/eTransmitting on: 1 07/24/2024 10:37 AM EST History and Physical Notes * HPI (History of Present Illness) Category Sub-Category Detail Notes Depression Screening PHQ-9 Little inte rest or pleasure in doing things: Several days Feeling down, depressed, or hopeless: No t at all Trouble falling or staying asleep, or sl eeping too much: Not at all Feeling tired or having little energy: S everal days Poor appetite or overeating: Not at all Feeling bad about yourself o r that you are a failure, or have let yourself or your family down: Several days Trouble concentrating on thi ngs, such as reading the newspaper or watching television: Not at all Moving or speaking so slowly that other people could have noticed; or the opposite, being so fidgety or restless that you have been moving around a lot more than usual: Not at all Thoughts that you would be b shashi off or of hurting yourself in some way: Not at all Total Score: 3 Interpretation: Minimal Depression Fall Risk Screening Fall History Have you had any falls with injury in the past year?: No Have you had two or more falls in the year?: No Fall Risk Assessment:: COVID-19 Screening Questions Have you had any new onset fever, chills, cough, congestion, sore throat, shortness of breath, muscle aches?: No SDOH Questions SDOH Questions In the past year have you been worried about losing your housing?: No In the past year have you or any family members you live with been unable to get any of the following when it was really needed? Check all that apply:: None Examination Category Sub-Category Detail Notes General Examination GENERAL APPEARANCE: pleasant , well nourished, well developed, in no acute distress, calm and relaxed, overweight, elderly man, overweight, elderly man HEAD: atraumatic, normocep halic, Small scar left cheek EYES: eomi, perrla, anicte ole, conjugate EARS: normal NOSE: septum intact NECK/THYROID: no jugular venous di stention, no carotid bruit, thyroid normal HEART: no clicks, gallops, murmurs, or rubs, regular rhythm, S1, S2 normal, no s3, or vascular bruits LUNGS: clear to auscultatio n ABDOMEN: bowel sounds normal, no ascites, no organomegaly, no mass, overweight, overweight NEUROLOGIC: alert and oriented, cranial nerves 2-12 grossly intact, deep tendon reflexes 2+ symmetrical, motor strength normal upper and lower extremities, sensory exam intact, Mild defects in memory SKIN: no suspicious lesion s, anicteric PERIPHERAL PULSES: Diminished in the lo wer extremities BREASTS: no masses palpable b ilaterally MUSCULOSKELETAL: extremities unremark able, no clubbing, cyanosis or edema, Surgical scar right hip, no ulcerations, feet pink and warm LYMPH NODES: no enlarged lymph no lynne,spleen normal RECTAL EXAM: not examined PSYCH: alert, oriented, Mil d defects in memory ORAL CAVITY: normal, unremarkable Consultation Request Notes Referral Date Referring Provider Referred Provider Not es 09/28/2024 Tony Greenwood Rani R/O dementia 09/28/2024 Tony Greenwood Physical [facility] leg weakness gait training muscle strengthening
--- OUTSIDE RECORDS SUMMARY | 2025-01-18 06:46 | XMS_ITS ---
Author Organization Tony Greenwood III, MD Address [address] [place] [address] [place] [address] Care Team Providers Care Knockout Machine Operator Name Role Phone Dr. Tony Greenwood III Primary Care Provider Medications Medication SIG (Take, Route, Frequency, Duration) Notes Start Date End Date Status Blcpbmlj-Crghpkyou-IG 3.5-98445-2 one drop each eye Ophthalmic twice a day for 7 days 01/18/2025 Active Encounters Encounter Location Date Provider Diagnosis Tony Greenwood III, MD [address] [place] [address] [place] [address] 01/18/2025 Tony Greenwood Plan Of Treatment Medication Medication Name Sig Start Date Stop Date Notes Kvcpvqvv-Xxictdjzb-IY 3.5-74480-1 one drop each eye Ophthalmic twice a day for 7 days 01/18/2025 Next Appt Details Provider Name:Tnoy Greenwood , 06/28/2025 10:00:00 AM, [address] [place] [address] [place], [address], Provider Name:Tony Greenwood , 09/29/2025 03:00:00 PM, [address] [place] [address] [place], [address], Progress Notes * Efrain PEDRO IIDOB: (84 yo M)Acc No.[id number]:01/18/2025 Patient: Efrain WALLER II :1940 A ge:84 Y S ex:Male Address:[address] [place] [address], [place] [address] * Refills Start Aucekaky-Wxrypxmpi-TN Suspension, 3.5-25745-4, Ophthalmic, 7.5 Milliliter, one drop each eye, twice a day, 7 days, Refills=1 * true * Date: Generated for Oralia buckley/Jose/Karolynsmitting on: 07/24/2024 10:38 AM EST
--- OUTSIDE RECORDS SUMMARY | 2025-01-18 10:36 | XMS_ITS ---
Author Organization Tony Greenwood III, MD Address [address] [place] [address] [place] [address] Care Team Providers Care Aeronautical Engineering Professor Name Role Phone Dr. Tony Greenwood III Primary Care Provider Medications Medication SIG (Take, Route, Frequency, Duration) Notes Start Date End Date Status Wcsxkzkq-Xfrzlqxzw-Bjpivem h 0.1 % 1 drop into affected eye Ophthalmic two times a day for 7 days 01/18/2025 Active Encounters Encounter Location Date Provider Diagnosis Tony Greenwood III, MD [address] [place] [address] [place] [address] 01/18/2025 Tony Greenwood Plan Of Treatment Medication Medication Name Sig Start Date Stop Date Notes Kfjidkyz-Pbcjnzjtk-Pynhwers 0.1 % 1 drop into affected eye Ophthalmic two times a day for 7 days 01/18/2025 Next Appt Details Provider Name:Tony Greenwood , 06/28/2025 10:00:00 AM, [address] [place] [address] [place], [address], Provider Name:Toyn Greenwood , 09/29/2025 03:00:00 PM, [address] [place] [address] [place], [address], Progress Notes * Efrain PEDRO IIDOB: (84 yo M)Acc No.[id number]:01/18/2025 Patient: Efrain WALLER II :1940 A ge:84 Y S ex:Male Address:[address] [place] [address], [facility] [address] * Refills Start Rgjassbu-Xfyotgzcf-Jcmpzyfc Suspension, 0.1 %, Ophthalmic, 0.7 ML, 1 drop into affected eye, two times a day, 7 days, Refills=1 * true * Date: Generated for Oralia buckley/Jose/Karolynsmitting on: 07/24/2024 10:37 AM EST
--- OUTSIDE RECORDS SUMMARY | 2025-02-02 12:00 | XMS_ITS ---
Author Organization Tony Greenwood III, MD Address [address] [place] [address] [place] [address] Care Team Providers Care Feeder Worker Power Unit Operator Name Role Phone Dr. Tony Greenwood III Primary Care Provider REASON FOR VISIT follow up Encounters Encounter Location Date Provider Diagnosis Tony Greenwood III, MD [address] [place] [address] [place] [address] 02/02/2025 Tony Greenwood Plan Of Treatment Next Appt Details Provider Name:Tony Greenwood , 06/28/2025 10:00:00 AM, [address] [place] [address] [place], [address], Provider Name:Tony Greenwood , 09/29/2025 03:00:00 PM, [address] [place] [address] [place], [address], Progress Notes * LESLEE Efrain Garcia IIDOB: (85 yo M)Acc No.[id number]:02/02/2025 Progress Notes Patient: Jayashree BERRIOS Efrain Garcia II Provider: Tyrone Greenwood MD :1940 A ge:84 Y S ex:Male Date:02/02/2025 Address:[address], [place] Subjective: * Chief Complaints: * 1 . Follow up. * Medical History: Objective: * Vitals: Assessment: Plan: * Treatment: * Images: * The named appointment provid er may or may not be the originator of this progress note, and it is not deemed complete until electronically signed by the appointment provider. Sign off status: Pending * Provider: Tyrone Greenwood MD Date: 0 02/02/2025 Generated for Oralia buckley/Jose/Joeitting on: 07/24/2024 10:41 AM EST
--- OUTSIDE RECORDS SUMMARY | 2025-02-15 05:30 | XMS_ITS ---
Author Organization Tony Greenwood III, MD Address [address] [place] [address] DR BENZ Alexander [place] [address] Care Team Providers Care Wind Farm Operations Manager Name Role Phone Dr. oTny Greenwood III Primary Care Provider Allergies Allergen (clinical drug ingredient) Drug/Non Drug Allergy documented on EMR Reaction Allergy Type Onset Date Status No Known Drug Allergy Unknown Drug Allergy Active No Known Food Allergy Unknown Drug Allergy Active REASON FOR VISIT Peripheral vascular disease, Hypertension, Hyperlipidemia, Coronary artery disease, History of depression, Her oral neuropathy, Sleep apnea, A sending aortic aneurysm Medications Medication SIG (Take, Route, Frequency, Duration) Notes Start Date End Date Status buPROPion HCl ER (XL) 150 MG TAKE 1 TABLET BY MOUTH EVERY DAY IN THE MORNING FOR 90 DAYS Active buPROPion HCl ER (XL) 300 MG TAKE 1 TABLET BY MOUTH EVERY DAY IN THE MORNING FOR 90 DAYS Active Pantoprazole Sodium 40 MG TAKE 1 TABLET BY MOUTH EVERY DAY FOR 90 DAYS Active Vitamin C Active Vitamin D Active Doxycycline Hyclate 100 MG TAKE 1 TABLET BY MOUTH EVERY DAY Active Alpha Lipoic Acid 200 MG 1 capsule Orall y Once a day Active Fiber Active Celecoxib 200 MG TAKE 1 CAPSULE BY MO UTH EVERY DAY WITH FOOD FOR 30 DAYS Active Clopidogrel Bisulfate 75 MG TAKE 1 TABLE T BY MOUTH EVERY DAY Active Tjjvvjug-Qdrqwpssf-Rqxhmnva 0.1 % 1 drop into affected eye Ophthalmic two times a day 01/18/2025 Active Ciclopirox Olamine 0.77 % External Active Metoprolol Succinate ER 50 MG TAKE 1 TABLET BY MOUTH DAILY Oral Active Anoro Ellipta 62.5-25 MCG/ACT Inhalation Active CeleBREX 100 MG 1 capsule with food Orally Once a day Active Finasteride 5 MG TAKE 1 TABLET BY DIAMOND TH EVERY DAY FOR 30 DAYS Active Zinc Skyler-Benzyl Zoj-Houeg-Uth Active CoQ-10 Active Gabapentin 400 MG 1 capsule Orally Onc e a day Active Social History Tobacco Use: Social History Observation Description Date Details (start date - stop date) Former Smoker NA - NA Tobacco Control (Standard) Question Answer Notes Tobacco use: Former smoker How long has it been since you last smoked? 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 02/15/2025 Essential hypertension (ICD-10 - I10) His blood pressure is currently stable and no change in his regimen was made. 02/15/2025 Vitamin D deficiency (ICD-10 - E55.9) We discussed his vitamin D supplementation. I strongly urged him to continue it. 02/15/2025 Obstructive sleep apnea (ICD-10 - G47.33) He reports that his pulmonary physician told him to stop using his CPAP. He is done so and not noticed any change in his medical status. He will keep me advised if this happens. 02/15/2025 Iliac artery aneurys m (ICD-10 - I72.3) He has a small right-sided iliac artery aneurysm which is being observed. It is asymptomatic. 02/15/2025 Peripheral vascular disease (ICD-10 - I73.9) He is scheduled for a duplex scan and then a visit with his vascular surgeon in March 2025. He has no new complaints of ischemia in his legs. 02/15/2025 Overweight (ICD-10 - E66.3) He is concerned that he has been losing weight over the last several years. His weight has declined to his current BMI of 25.07. He says his appetite is fair. He is going to be followed at six-month intervals to see if he continues with losing weight and, if so he will be aggressively pursued for diagnosis. 02/15/2025 Former smoker (ICD-1 0 - Z87.891) He is highly motivated not to smoke. He has a strategy for prevention of relapse and maintenance of abstinence. 02/15/2025 Coronary artery disease (ICD-10 - I25.10) He has had no angina or diaphoresis or palpitations since his last visit. His coronary artery disease is stable. He is compliant with all his medications. His lipid profile is in its target range. He was seen by cardiology, November 19, 2022 and thought to be stable. 02/15/2025 Depression (ICD-10 - F32.9) His depression is slightly worse after the surgery. He requested that I increase the bupropion to 450 mg a day. I have done so. This is a dose. He has taken successfully in the past. 02/15/2025 BPH (benign prostati c hyperplasia) (ICD-10 - N40.0) He rises from sleep once a night to urinate. No change in his medications was needed. 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 Plan Of Treatment Medication Medication Name Sig Start Date Stop Date Notes buPROPion HCl ER (XL) 150 MG TAKE 1 TABL ET BY MOUTH EVERY DAY IN THE MORNING FOR 90 DAYS buPROPion HCl ER (XL) 300 MG TAKE 1 TABL ET BY MOUTH EVERY DAY IN THE MORNING FOR 90 DAYS Pantoprazole Sodium 40 MG TAKE 1 TABLET BY MOUTH EVERY DAY FOR 90 DAYS Vitamin C Vitamin D Doxycycline Hyclate 100 MG TAKE 1 TABLET BY MOUTH EVERY DAY Alpha Lipoic Acid 200 MG 1 capsule Orally Once a day Fiber Celecoxib 200 MG TAKE 1 CAPSULE BY MO UTH EVERY DAY WITH FOOD FOR 30 DAYS Clopidogrel Bisulfate 75 MG TAKE 1 TABLE T BY MOUTH EVERY DAY Ececspcx-Tendyexnm-Ildjezvt 0.1 % 1 drop into affected eye Ophthalmic two times a day 01/18/2025 Ciclopirox Olamine 0.77 % External Metoprolol Succinate ER 50 MG TAKE 1 TAB LET BY MOUTH DAILY Oral Anoro Ellipta 62.5-25 MCG/ACT Inhalation CeleBREX 100 MG 1 capsule with food Orally Once a day Finasteride 5 MG TAKE 1 TABLET BY DIAMOND TH EVERY DAY FOR 30 DAYS Zinc Skyler-Benzyl Kth-Kudir-Xve CoQ-10 Gabapentin 400 MG 1 capsule Orally Once a day Pending Test Test Name Order Date PROFILE, FASTING (COMPREHENSIVE METABOLI C) 02/15/2025 CBC w DIFF 02/15/2025 SED RATE (ESR) 02/15/2025 Lipid Panel 02/15/2025 Vitamin D 25-OH Total 02/15/2025 Next Appt Details Follow Up: 6 Weeks, Reason: OV review labs Provider Name:Tony Greenwood , 06/28/2025 10:00:00 AM, [address] [place] [address] [address], [place], [phone], Provider Name:Tony Greenwood , 09/29/2025 03:00:00 PM, [address] [place] [address] [address], [place], [phone], Progress Notes * Efrain PEDRO IIDOB: (85 yo M)Acc No.[id number]:02/15/2025 Progress Notes Patient: Jayashree MEHULEfrain HUNT II Provider: Tyrone rGeenwood MD :1940 A ge:85 Y S ex:Male Date:02/15/2025 Address: [address], [phone] Subjective: * Chief Complaints: * P eripheral vascular diseaseHypertensionHyperlipidemiaCoronary artery diseaseHistory of depressionHer oral neuropathySleep apneaA sending aortic aneurysm * HPI: C OVID-19 Screening: He returns for a scheduled visit for medical management. His blood work was reviewed with him in detail. His chief complaint today was unsteadiness with walking with peripheral neuropathy. He finds that exercise helps but he become short of breath with exertion. He has had no angina. He recently saw his pulmonary physician, Dr. Valdo Haley, who could not get the oxygen saturation to dropped below 96 with prolonged walking. His oxygen saturation today was 98% on room air. He has stopped his CPAP. He was told by pulmonary that he does not needed. He has been to neurology and had an MRI of his brain and no additional treatments were offered. He admits to nocturia once or twice a night. He has had no falls. He has no hip pain. His blood work was reviewed with him in detail. Questions H ave you had any new onset fever, chills, cough, congestion, sore throat, shortness of breath, muscle aches? N o * ROS: G eneral/Constitutional: pain o nly normal aches and pains. C hills d enies.?Fatigue a dmits. F ever d enies. E NT: Decreased hearing m ild. R espiratory: Cough d enies. C ardiovascular: Chest pain with exertion d enies. D yspnea on exertion?with prolonged activity. S hortness of breath w ith exertion. G astrointestinal: Constipation o ccasional. D ecreased appetite d enies. D iarrhea d enies. H eartburn d enies. N ausea d enies. R ectal bleeding d enies. V omiting d enies. H ematology: bruising d enies. p etechiae d enies. S wollen glands n one have been noted. G enitourinary: Frequent urination t wice a night. M usculoskeletal: Muscle aches d enies. P ainful joints d enies. S ciatica d enies. W eakness d enies. S kin: Itching d enies. R michelle d enies. S kin lesion(s)?denies. N eurologic: Difficulty speaking d enies. D izziness d enies.?Headache d enies. L ow back pain d enies. P sychiatric: Depressed mood d enies. 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 [facility] He is now working at the [employer]. * Medications: T akingFiber Alpha Lipoic Acid 200 MG Capsule 1 capsule Orally Once a day Doxycycline Hyclate 100 MG Tablet TAKE 1 TABLET BY MOUTH EVERY DAY buPROPion HCl ER (XL) 150 MG Tablet [...] DAYS Vitamin C Vitamin D Zinc Skyler-Benzyl Jvi-Hquqe-Qsg CoQ-10 Gabapentin 400 MG Capsule 1 capsule Orally Once a day CeleBREX 100 MG Capsule 1 capsule with food Orally Once a day Metoprolol Succinate ER 50 MG Tablet Extended Release 24 Hour TAKE 1 TABLET BY MOUTH DAILY Oral Anoro Ellipta 62.5-25 MCG/ACT Aerosol Powder Breath Activated Inhalation Ciclopirox Olamine 0.77 % Cream External Finasteride 5 MG Tablet TAKE 1 TABLET BY MOUTH EVERY DAY FOR 30 DAYS Celecoxib 200 MG Capsule TAKE 1 CAPSULE BY MOUTH EVERY DAY WITH FOOD FOR 30 DAYS Clopidogrel Bisulfate 75 MG Tablet TAKE 1 TABLET BY MOUTH EVERY DAY Rmzbhutw-Srkyievit-Vkqpzfif 0.1 % Suspension 1 drop into affected eye Ophthalmic two times a day Taking Fiber Taking Alpha Lipoic Acid 200 MG Capsule 1 capsule Orally Once a day Taking Doxycycline Hyclate 100 MG Tablet TAKE 1 TABLET BY MOUTH EVERY DAY Taking buPROPion HCl ER (XL) 150 MG [...] C Taking Vitamin D Taking Zinc Skyler-Benzyl Anh-Uxdyl-Xcc Taking CoQ-10 Taking Gabapentin 400 MG Capsule 1 capsule Orally Once a day Taking CeleBREX 100 MG Capsule 1 capsule with food Orally Once a day Taking Metoprolol Succinate ER 50 MG Tablet Extended Release 24 Hour TAKE 1 TABLET BY MOUTH DAILY Oral Taking Anoro Ellipta 62.5-25 MCG/ACT Aerosol Powder Breath Activated Inhalation Taking Ciclopirox Olamine 0.77 % Cream External Taking Finasteride 5 MG Tablet TAKE 1 TABLET BY MOUTH EVERY DAY FOR 30 DAYS Taking Celecoxib 200 MG Capsule TAKE 1 CAPSULE BY MOUTH EVERY DAY WITH FOOD FOR 30 DAYS Taking Clopidogrel Bisulfate 75 MG Tablet TAKE 1 TABLET BY MOUTH EVERY DAY Taking Fvltgdhk-Jshjvkvkj-Nwpjsrsf 0.1 % Suspension 1 drop into affected eye Ophthalmic two times a day DiscontinuedAntioxidant Fluticasone Propionate 0.005 % Ointment 1 application to affected area Externally Twice a day Ketoconazole 2 % Cream 1 application Externally Once a day Riubjewi-Adoxqfdrr-XW 3.5-12825-2 Suspension one drop each eye Ophthalmic twice a day Medication List reviewed and reconciled with the patientDiscontinued Antioxidant Discontinued Fluticasone Propionate 0.005 % Ointment 1 application to affected area Externally Twice a day Discontinued Ketoconazole 2 % Cream 1 application Externally Once a day Discontinued Yhfkpaic-Ryndgjsfo-NQ 3.5-86718-5 Suspension one drop each eye Ophthalmic twice a day Medication List reviewed and reconciled with the patient * Allergies: N o Known Drug AllergyNo Known Food Allergyno[Allergies Verified] Objective: * Vitals: H t: 76, Wt:206, BMI:25.07, BP:130/83, HR:62, Temp:97.1, Wt-k.44. * P ast Orders: I maging:MR head/brain wo con (Order Date - 11/20/2024) (Performed Date - 11/20/2024) * Examination: G eneral Examination: GENERAL APPEARANCE: p leasant, well nourished, well developed, in no acute distress, calm and relaxed: overweight: man. HEAD: a traumatic, normocephalic. EYES: e garret, perrla, anicteric, conjugate. EARS: [...] sounds normal, no ascites, no organomegaly, no mass: overweight. RECTAL EXAM: n ot examined. MUSCULOSKELETAL: e xtremities unremarkable, no clubbing, cyanosis or edema. PERIPHERAL PULSES: D iminished in the lower extremities.? NEUROLOGIC: a lert and oriented, cranial nerves 2-12 grossly intact, deep tendon reflexes 2+ symmetrical, motor strength normal upper and lower extremities, sensory exam intact. PSYCH: a lert, oriented: thought process logical, goal directed: speech clear: cooperative with exam: cognitive function intact. Assessment: * Assessment: 1. P opliteal artery aneurysm - I72.4 (Primary) N otes :A stent has been inserted in the popliteal artery aneurysm on the right in this area has been repaired. 2 . H yperlipidemia - E78.5 N otes :His lipids are currently stable and no change in her regimen was made. 3 . E ssential hypertension - I10 N otes :His blood pressure is currently stable and no change in his regimen was made. 4 . V itamin D deficiency - E55.9 N otes :We discussed his vitamin D supplementation. I strongly urged him to continue it. 5 . O bstructive sleep apnea - G47.33 N otes :He reports that his pulmonary physician told him to stop using his CPAP. He is done so and not noticed any change in his medical status. He will keep me advised if this happens. 6 . 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 It is asymptomatic. 7 . P eripheral vascular disease - I73.9 N otes :He is scheduled for a duplex scan and then a visit with his vascular surgeon in March 2025.? He has no new complaints of ischemia in his legs. 8 . O verweight - E66.3 N otes :He is concerned that he has been losing weight over the last several years. His weight has declined to his current BMI of 25.07. He says his appetite is fair. He is going to be followed at six-month intervals to see if he continues with losing weight and, if so he will be aggressively pursued for diagnosis. 9 . F ormer smoker - Z87.891 N otes :He is highly motivated not to smoke. He has a strategy for prevention of relapse and maintenance of abstinence. 1 0. C oronary artery disease - I25.10 N otes :He has had no angina or diaphoresis or palpitations since his last visit. His coronary artery disease is stable. He is compliant with all his medications. His lipid profile is in its target range. He was seen by cardiology, November 19, 2022 and thought to be stable. 1 1. D epression - F32.9 N otes :His depression is slightly worse after the surgery. He requested that I increase the bupropion to 450 mg a day. I have done so. This is a dose. He has taken successfully in the past. 1 2. B PH (benign prostatic hyperplasia) - N40.0 N otes :He rises from sleep once a night to urinate. No change in his medications was needed. 1 3. R ight-sided aortic arch - Q25.47 N otes :This anatomic abnormality is noted. 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 Plan: * Treatment: 2. E ssential hypertension L AB: PROFILE, FASTING (COMPREHENSIVE METABOLIC) L AB: CBC w DIFF L AB: SED RATE (ESR) L AB: Lipid Panel L AB: Vitamin D 25-OH Total 3. V itamin D deficiency L AB: PROFILE, FASTING (COMPREHENSIVE METABOLIC) L AB: CBC w DIFF L AB: SED RATE (ESR) L AB: Lipid Panel L AB: Vitamin D 25-OH Total 4. O bstructive sleep apnea L AB: PROFILE, FASTING (COMPREHENSIVE METABOLIC) L AB: CBC w DIFF L AB: SED RATE (ESR) L AB: Lipid Panel L AB: Vitamin D 25-OH Total 5. O thers Continue Doxycycline Hyclate Tablet, 100 MG, TAKE 1 TABLET BY MOUTH EVERY DAY; C ontinue buPROPion HCl ER (XL) Tablet Extended Release 24 Hour, 150 MG, TAKE 1 TABLET BY MOUTH EVERY DAY IN THE MORNING FOR 90 DAYS; C ontinue buPROPion HCl ER (XL) Tablet Extended Release 24 Hour, 300 MG, TAKE 1 TABLET BY MOUTH EVERY DAY IN THE MORNING FOR 90 DAYS; C ontinue Pantoprazole Sodium Tablet Delayed Release, 40 MG, TAKE 1 TABLET BY MOUTH EVERY DAY FOR 90 DAYS; C ontinue Vitamin C; C ontinue Vitamin D; C ontinue Zinc Skyler-Benzyl Qxw-Qxcbq-Utg; C ontinue CoQ-10; C ontinue Gabapentin Capsule, 400 MG, 1 capsule Orally Once a day; C ontinue CeleBREX Capsule, 100 MG, 1 capsule with food, Orally, Once a day; C ontinue Metoprolol Succinate ER Tablet Extended Release 24 Hour, 50 MG, TAKE 1 TABLET BY MOUTH DAILY, Oral; C ontinue Anoro Ellipta Aerosol Powder Breath Activated, 62.5-25 MCG/ACT, Inhalation; C ontinue Ciclopirox Olamine Cream, 0.77 %, External; Continue Finasteride Tablet, 5 MG, TAKE 1 TABLET BY MOUTH EVERY DAY FOR 30 DAYS; C ontinue Celecoxib Capsule, 200 MG, TAKE 1 CAPSULE BY MOUTH EVERY DAY WITH FOOD FOR 30 DAYS; C ontinue Clopidogrel Bisulfate Tablet, 75 MG, TAKE 1 TABLET BY MOUTH EVERY DAY; C ontinue Aypvrxmo-Pprqsxvry-Hlurndyh Suspension, 0.1 %, 1 drop into affected eye, Ophthalmic, two times a day; C ontinue Alpha Lipoic Acid Capsule, 200 MG, 1 capsule, Orally, Once a day; C ontinue Fiber. * Procedure Codes: * Preventive Medicine: Counseling: C are goal follow-up plan: Counseling for abnormal BMI given Y es Above Normal BMI Follow-up D ietary management education, guidance, and counseling S moking/Tobacco Use Patient counseled on the dangers of tobacco use and urged to quit. 0 02/15/2025 * Follow Up: 6 Weeks (Reason: OV review labs) * Images: * Sign off status: Completed true * Provider: Tyrone Greenwood MD Date: 0 02/15/2025 Generated for Oralia buckley/Jose/eTneenasmitting on: 1 07/24/2024 10:37 AM EST History and Physical Notes * HPI (History of Present Illness) Category Sub-Category Detail Notes COVID-19 Screening Questions Have you had any new onset fever, chills, cough, congestion, sore throat, shortness of breath, muscle aches?: No Examination Category Sub-Category Detail Notes General Examination GENERAL APPEARANCE: pleasant , well nourished, well developed, in no acute distress, calm and relaxed: overweight: man HEAD: atraumatic, normocep halic EYES: eomi, perrla, anicte ole, conjugate EARS: normal NOSE: septum intact NECK/THYROID: no jugular venous di stention, no carotid bruit, thyroid normal HEART: no clicks, gallops, murmurs, or rubs, regular rhythm, S1, S2 normal, no s3, or vascular bruits LUNGS: clear to auscultatio n ABDOMEN: bowel sounds normal, no ascites, no organomegaly, no mass: overweight NEUROLOGIC: alert and oriented, cranial nerves [...] normal RECTAL EXAM: not examined PSYCH: alert, oriented: tho ught process logical, goal directed: speech clear: cooperative with exam: cognitive function intact ORAL CAVITY: normal, unremarkable
--- OUTSIDE RECORDS SUMMARY | 2025-03-29 05:30 | XMS_ITS ---
Author Organization Tony Greenwood III, MD Address [address] [place] [address] DR BENZ Alexander [place] [id number] Care Team Providers Care Light Technician Name Role Phone Dr. Tony Greenwood III Primary Care Provider REASON FOR VISIT Iliac and popliteal artery aneurysm, A descending aortic aneurysm, Hyperlipidemia, Hypertension, Coronary artery disease, History of depression, Sleep apnea, Memory loss Medications Medication SIG (Take, Route, Frequency, Duration) Notes Start Date End Date Status Alpha Lipoic Acid 200 MG 1 capsule Orall y Once a day Active Clopidogrel Bisulfate 75 MG TAKE 1 TABLE T BY MOUTH EVERY DAY Active Fmbipeqt-Hbpfwqnnu-Ksqhowsc 0.1 % 1 drop into affected eye Ophthalmic two times a day 01/18/2025 Active Fiber Active Celecoxib 200 MG TAKE 1 CAPSULE BY MO UTH EVERY DAY WITH FOOD FOR 30 DAYS Active CeleBREX 100 MG 1 capsule with food Orally Once a day Active Metoprolol Succinate ER 25 MG 1 tablet Orally Once a day Active Finasteride 5 MG TAKE 1 TABLET BY DIAMOND TH EVERY DAY FOR 30 DAYS Active Anoro Ellipta 62.5-25 MCG/ACT Inhalation Active Ciclopirox Olamine 0.77 % External Active Vitamin D Active Zinc Skyler-Benzyl Non-Nptge-Svb Active Vitamin C Active CoQ-10 Active Gabapentin 400 MG 1 capsule Orally Onc e a day Active buPROPion HCl ER (XL) 300 MG TAKE 1 TABLET BY MOUTH EVERY DAY IN THE MORNING FOR 90 DAYS Active Pantoprazole Sodium 40 MG TAKE 1 TABLET BY MOUTH EVERY DAY FOR 90 DAYS Active Social History Tobacco Use: Social History Observation Description Date Details (start date - stop date) Former Smoker NA - NA Tobacco Control (Standard) Question Answer Notes Tobacco use: Former smoker How long has it been since you last smoked? 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 ; Former smoker Z87.891 ; Overweight E66.3 ; Hyperlipidemia E78.5 ; Essential hypertension I10 ; 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 03/29/2025 Former smoker (ICD-10 - Z87.891) He is highly motivated not to smoke. He has a strategy for prevention of relapse and maintenance of abstinence. 03/29/2025 Overweight (ICD-10 - E66.3) He has gained 7 pounds since his last visit and remains overweight. His appetite is good. We discussed ways to stabilize his weight at this level.. 03/29/2025 Hyperlipidemia (ICD-10 - E78.5) His lipids are currently stable and no change in her regimen was made. 03/29/2025 Essential hypertension (ICD-10 - I10) His blood pressure is currently stable and no change in his regimen was made. 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 It is asymptomatic. 03/29/2025 Peripheral vascular disease (ICD-10 - I73.9) He is scheduled for a duplex scan and then a visit with his vascular surgeon in March 2025. He has no new complaints of ischemia in his legs. 03/29/2025 Depression (ICD-10 - F32.9) His depression is slightly worse after the surgery. He requested that I increase the bupropion to 450 mg a day. I have done so. This is a dose. He has taken successfully in the past. 03/29/2025 BPH (benign prostatic hyperplasia) (ICD-10 - N40.0) He rises from sleep once a night to urinate. No change in his medications was needed. 03/29/2025 Ascending aortic aneurysm (ICD-10 - I71.2) He has a CT scan of the chest and a consultation with a cardiac surgeon regularly at scheduled intervals. He has had no chest pain or dyspnea. 03/29/2025 Osteoarthritis of hip, unspecified (ICD-10 - M16.9) He occasionally has pain in his right hip that requires him to stop and rest frequently. He is scheduled for surgery to replace the right hip joint on January 08, [address] Rahman at [facility]. His blood work is adequate. His electrocardiogram is unremarkable. He has had clearance from pulmonary and cardiology. He is given general medical clearance for the procedure. His risk is greater than average because of his multiple comorbidities and coronary artery disease but is acceptable. He is granted, medical clearance. 03/29/2025 Osteoarthritis of knees, bilateral (ICD-10 - M17.0) There was mild crepitus of his knees. He has occasional knee pain but is able to conduct all of the activities of daily life. 03/29/2025 Memory loss (ICD-10 - R41.3) He is mildly forgetful but is aware of it. It is likely vascular in origin. He remains able to care for himself at home living with his . He remains mentally competent to make decisions. 03/29/2025 Vitamin D deficiency (ICD-10 - E55.9) We discussed his vitamin D supplementation. I strongly urged him to continue it. 03/29/2025 Peripheral polyneuropathy (ICD-10 - G62.9) Plan Of Treatment Medication Medication Name Sig Start Date Stop Date Notes Alpha Lipoic Acid 200 MG 1 capsule Orally Once a day Clopidogrel Bisulfate 75 MG TAKE 1 TABLE T BY MOUTH EVERY DAY Rbutuaso-Xjplekvol-Bhmqmljo 0.1 % 1 drop into affected eye Ophthalmic two times a day 01/18/2025 Fiber Celecoxib 200 MG TAKE 1 CAPSULE BY MO UTH EVERY DAY WITH FOOD FOR 30 DAYS CeleBREX 100 MG 1 capsule with food Orally Once a day Metoprolol Succinate ER 25 MG 1 tablet Orally Once a day Finasteride 5 MG TAKE 1 TABLET BY DIAMOND TH EVERY DAY FOR 30 DAYS Anoro Ellipta 62.5-25 MCG/ACT Inhalation Ciclopirox Olamine 0.77 % External Vitamin D Zinc Skyler-Benzyl Fit-Qygjj-Eyi Vitamin C CoQ-10 Gabapentin 400 MG 1 capsule Orally Once a day buPROPion HCl ER (XL) 300 MG TAKE 1 TABL ET BY MOUTH EVERY DAY IN THE MORNING FOR 90 DAYS Pantoprazole Sodium 40 MG TAKE 1 TABLET BY MOUTH EVERY DAY FOR 90 DAYS Pending Test Test Name Order Date PROFILE, FASTING (COMPREHENSIVE METABOLI C) 03/29/2025 PSA, TOTAL 03/29/2025 CBC w DIFF 03/29/2025 Lipid Panel 03/29/2025 Next Appt Details Follow Up: 3 Months, Reason: OV Provider Name:Tony Greenwood , 06/28/2025 10:00:00 AM, [address] [place] [address] [address], [place], [phone], Provider Name:Tony Greenwood , 09/29/2025 03:00:00 PM, [address] [place] [address] [place], [phone], Progress Notes * Efrain PEDRO IIDOB: (85 yo M)Acc No.[id number]:03/29/2025 Progress Notes Patient: Jayashree BERRIOS Efrain Garcia II Provider: Tyrone Greenwood MD :1940 A ge:85 Y S ex:Male Date:03/29/2025 Address:[address], [place], [id number] Subjective: * Chief Complaints: * I liac and popliteal artery aneurysmA descending aortic aneurysmHyperlipidemiaHypertensionCoronary artery diseaseHistory of depressionSleep apneaMemory loss * HPI: C OVID-19 Screening: He returns for medical management. He continues to have pain in his hips and knees but does not wish to have injections her orthopedic follow-up. He saw his trim stencil maker recently and complained of lightheadedness. The metoprolol was decreased to 25 mg. His vital signs were stable today. He admits to nocturia twice a night. He saw his urologist recently. He was not placed on tamsulosin due to his postural hypotension. He says he has been told his right knee is jyta-uz-tmfk but it does not hurt much so he is living with it. He declines joint injections.He has sleep apnea and has been given a CPAP machine but he does not use it as he finds it ineffective. He prefers to try to lose weight. Questions H ave you had any new onset fever, chills, cough, congestion, sore throat, shortness of breath, muscle aches? N o * ROS: G eneral/Constitutional: pain H ips and knees. C hills d enies. F atigue?admits. F ever d enies. E NT: Decreased hearing i n both ears. R espiratory: Cough d enies. C ardiovascular: Chest pain with exertion d enies. D yspnea on exertion?denies. S hortness of breath d enies. G astrointestinal: Constipation o ccasional. D ecreased appetite d enies. D iarrhea d enies. H eartburn c ontrolled with medications. N ausea d enies. R ectal bleeding d enies. V omiting d enies. H ematology: bruising d enies. p etechiae d enies. S wollen glands n one have been noted. G enitourinary: Frequent urination d enies. M usculoskeletal: Muscle aches d enies. P ainful joints H ips and knee is. S ciatica d enies. W eakness d enies. S kin: Itching d enies. R michelle d enies. S kin lesion(s)?denies. N eurologic: Difficulty speaking d enies. D izziness d enies.?Headache d enies. L ow back pain d enies. P sychiatric: Depressed mood w hich is mild. 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 He was born [facility]. He is now working at the [employer]. * Medications: T akingbuPROPion HCl ER (XL) 300 MG Tablet Extended Release 24 Hour TAKE 1 TABLET BY MOUTH EVERY DAY IN THE MORNING FOR 90 DAYS Pantoprazole Sodium 40 MG Tablet Delayed Release TAKE 1 TABLET BY MOUTH EVERY DAY FOR 90 DAYS Vitamin C Vitamin D Zinc Skyler-Benzyl Yib-Fzlqa-Odj CoQ-10 Gabapentin 400 MG Capsule 1 capsule Orally Once a day CeleBREX 100 MG Capsule 1 capsule with food Orally Once a day Metoprolol Succinate ER 25 MG Tablet Extended Release 24 Hour 1 tablet Orally Once a day Anoro Ellipta 62.5-25 MCG/ACT Aerosol Powder Breath Activated Inhalation Ciclopirox Olamine 0.77 % Cream External Finasteride 5 MG Tablet TAKE 1 TABLET BY MOUTH EVERY DAY FOR 30 DAYS Celecoxib 200 MG Capsule TAKE 1 CAPSULE BY MOUTH EVERY DAY WITH FOOD FOR 30 DAYS Clopidogrel Bisulfate 75 MG Tablet TAKE 1 TABLET BY MOUTH EVERY DAY Dayobjji-Ngeryrycy-Dddtucef 0.1 % Suspension 1 drop into affected eye Ophthalmic two times a day Alpha Lipoic Acid 200 MG Capsule 1 capsule Orally Once a day Fiber Taking buPROPion HCl ER (XL) 300 MG Tablet Extended Release 24 Hour TAKE 1 TABLET BY MOUTH EVERY DAY IN THE MORNING FOR 90 DAYS Taking Pantoprazole Sodium 40 MG Tablet Delayed Release TAKE 1 TABLET BY MOUTH EVERY DAY FOR 90 DAYS Taking Vitamin C Taking Vitamin D Taking Zinc Skyler-Benzyl Vwg-Pbqke-Zfn Taking CoQ-10 Taking Gabapentin 400 MG Capsule 1 capsule Orally Once a day Taking CeleBREX 100 MG Capsule 1 capsule with food Orally Once a day Taking Metoprolol Succinate ER 25 MG Tablet Extended Release 24 Hour 1 tablet Orally Once a day Taking [...] 1 TABLET BY MOUTH EVERY DAY Taking Nywfqliz-Wmoggyxad-Tarhfhys 0.1 % Suspension 1 drop into affected eye Ophthalmic two times a day Taking Alpha Lipoic Acid 200 MG Capsule 1 capsule Orally Once a day Taking Fiber DiscontinuedDoxycycline Hyclate 100 MG Tablet TAKE 1 TABLET BY MOUTH EVERY DAY buPROPion HCl ER (XL) 150 MG Tablet Extended Release 24 Hour TAKE 1 TABLET BY MOUTH EVERY DAY IN THE MORNING FOR 90 DAYS Medication List reviewed and reconciled with the patientDiscontinued Doxycycline Hyclate 100 MG Tablet TAKE 1 TABLET BY MOUTH EVERY DAY Discontinued buPROPion HCl ER (XL) 150 MG Tablet Extended Release 24 Hour TAKE 1 TABLET BY MOUTH EVERY DAY IN THE MORNING FOR 90 DAYS Medication List reviewed and reconciled with the patient Objective: * Vitals: H t: 76, Wt:213, BMI:25.92, BP:124/58, HR:67, Temp:97.2, Wt-k.62. * Examination: G eneral Examination: GENERAL APPEARANCE: p leasant, well nourished, well developed, in no acute distress, calm and relaxed: overweight: elderly man. HEAD: a traumatic, normocephalic. EYES: e garret, perrla, anicteric, conjugate. EARS: : Normal anatomy with bilateral hearing loss. NOSE: s eptum intact. ORAL CAVITY: n [...] overweight. RECTAL EXAM: n ot examined. MUSCULOSKELETAL: P ain and decreased range of motion right knee left hip. PERIPHERAL PULSES: n ormal. NEUROLOGIC: a lert and oriented, cranial nerves 2-12 grossly intact, deep tendon reflexes 2+ symmetrical, motor strength normal upper and lower extremities, sensory exam intact. PSYCH: a lert, oriented, Mild memory defects. ? Assessment: * Assessment: 1. P opliteal artery aneurysm - I72.4 (Primary) N otes :A stent has been inserted in the popliteal artery aneurysm on the right in this area has been repaired. 2 . F ormer smoker - Z87.891 N otes :He is highly motivated not to smoke. He has a strategy for prevention of relapse and maintenance of abstinence. 3 . O verweight - E66.3 N otes :He has gained 7 pounds since his last visit and remains overweight. His appetite is good. We discussed ways to stabilize his weight at this level.. 4 . H yperlipidemia - E78.5 N otes :His lipids are currently stable and no change in her regimen was made. 5 . E ssential hypertension - I10 N otes :His blood pressure is currently stable and no change in his regimen was made. 6 . I liac artery aneurysm - [...] of ischemia in his legs. 8 . D epression - F32.9 N otes :His depression is slightly worse after the surgery. He requested that I increase the bupropion to 450 mg a day. I have done so. This is a dose. He has taken successfully in the past. 9 . B PH (benign prostatic hyperplasia) - N40.0 N otes :He rises from sleep once a night to urinate. No change in his medications was needed. 1 0. 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 He has had no chest pain or dyspnea. 1 1. O steoarthritis of hip, unspecified - M16.9 N otes :He occasionally has pain in his right hip that requires him to stop and rest frequently. He is scheduled for surgery to replace the right hip joint on January 08, [address] Rahman at [facility]. His blood work is adequate. His electrocardiogram is unremarkable. He has had clearance from pulmonary and cardiology. He is given general medical clearance for the procedure. His risk is greater than average because of his multiple comorbidities and coronary artery disease but is acceptable. He is granted, medical clearance. 1 2. O steoarthritis of knees, bilateral [...] mentally competent to make decisions. 1 4. V itamin D deficiency - E55.9 N otes :We discussed his vitamin D supplementation. I strongly urged him to continue it. 1 5. P eripheral polyneuropathy - G62.9 Plan: * Treatment: 2. H yperlipidemia L AB: PROFILE, FASTING (COMPREHENSIVE METABOLIC) L AB: PSA, TOTAL L AB: CBC w DIFF L AB: Lipid Panel 3. B PH (benign prostatic hyperplasia) L AB: PROFILE, FASTING (COMPREHENSIVE METABOLIC) L AB: PSA, TOTAL L AB: CBC w DIFF L AB: Lipid Panel 4. O thers Continue buPROPion HCl ER (XL) Tablet Extended Release 24 Hour, 300 MG, TAKE 1 TABLET BY MOUTH EVERY DAY IN THE MORNING FOR 90 DAYS; C ontinue Pantoprazole Sodium Tablet Delayed Release, 40 MG, TAKE 1 TABLET BY MOUTH EVERY DAY FOR 90 DAYS; C ontinue Vitamin C; C ontinue Vitamin D; C ontinue Zinc Skyler-Benzyl Yjd-Loppx-Rjn; C ontinue CoQ-10; C ontinue Gabapentin Capsule, 400 MG, 1 capsule Orally Once a day; C ontinue CeleBREX Capsule, 100 MG, 1 capsule with food, Orally, Once a day; C ontinue Metoprolol Succinate ER Tablet Extended Release 24 Hour, 25 MG, 1 tablet, Orally, Once a day; C ontinue Anoro Ellipta Aerosol Powder Breath Activated, 62.5-25 MCG/ACT, Inhalation; C ontinue Ciclopirox Olamine Cream, 0.77 %, External; C ontinue Finasteride Tablet, 5 MG, TAKE 1 TABLET BY MOUTH EVERY DAY FOR 30 DAYS; C ontinue Celecoxib Capsule, 200 MG, TAKE 1 CAPSULE BY MOUTH EVERY DAY WITH FOOD FOR 30 DAYS; C ontinue Clopidogrel Bisulfate Tablet, 75 MG, TAKE 1 TABLET BY MOUTH EVERY DAY; C ontinue Oqahdwng-Cfmwerbvq-Mfcmcocu Suspension, 0.1 %, 1 drop into affected [...] tobacco use and urged to quit. 0 03/29/2025 * Follow Up: 3 Months (Reason: OV) * Images: * Sign off status: Completed true * Provider: Tyrone Greenwood MD Date: 0 03/29/2025 Generated for Oralia buckley/Jose/eTransmitting on: 1 07/24/2024 10:38 AM EST History and Physical Notes * HPI (History of Present Illness) Category Sub-Category Detail Notes COVID-19 Screening Questions Have you had any new onset fever, chills, cough, congestion, sore throat, shortness of breath, muscle aches?: No Examination Category Sub-Category Detail Notes General Examination GENERAL APPEARANCE: pleasant , well nourished, well developed, in no acute distress, calm and relaxed: overweight: elderly man HEAD: atraumatic, normocep halic EYES: eomi, perrla, anicte ole, conjugate EARS: : Normal anatomy wit h bilateral hearing loss NOSE: septum intact NECK/THYROID: no jugular venous [...] BREASTS: no masses palpable b ilaterally MUSCULOSKELETAL: Pain and decreased r jeffrey of motion right knee left hip LYMPH NODES: no enlarged lymph no lynne,spleen normal RECTAL EXAM: not examined PSYCH: alert, oriented, Mil d memory defects ORAL CAVITY: normal, unremarkable
[2025-05-24 09:38] VITALS: BP 120/76; PULSE 68; BMI 26.4
--- NOTE | 2025-05-24 09:38 | A.OFFVIS_ITS ---
Vital Signs 05/24/25 09:38 Height 6 ft 4 in Weight 217 lb BMI 26.4 BP 120/76 Blood Pressure Location Rt brachial Position Sitting Pulse 68 Pulse Source Palpation Intake Visit Reasons: 6 mnts f/u appt-Conf Intake Note: Follow up Cognitive impairment Chief Psychology Required: No Accompanied by: Self / Same As Patient Allergies No Known Allergies Allergy (Verified 05/24/25 09:38) Medication List - Last Reconciled 05/24/25 by Jessica Mcghee MD Anoro Ellipta 62.5-25 mcg/actuation (umeclidinium-vilanterol) 1 ea inhalation DAILY NS aspirin (Adult Aspirin Regimen) 162 mg PO DAILY atorvastatin 80 mg PO BEDTIME bupropion HCl XL 450 mg PO BEDTIME [calcium ] celecoxib 200 mg PO DAILY cholecalciferol (vitamin D3) (Vitamin D3) 25 mcg PO BEDTIME clopidogrel 75 mg PO DAILY CPAP (CPAP Machine/Device) As directed docusate sodium (Colace) 100 mg PO BEDTIME finasteride 5 mg PO DAILY gabapentin 400 mg PO BEDTIME 90 days magnesium 200 mg PO DAILY metoprolol succinate ER (Toprol XL) 25 mg PO BEDTIME multivitamin 1 tab PO BEDTIME neomycin-polymyxin B-dexameth 3.5mg/mL-10,000 unit/mL-0.1 % 1 drp ophthalmic (eye) BID PRN pantoprazole 40 mg PO BEDTIME PRN vitamin B complex (B Complex-Vitamin B12 tablet) 1 tab PO BEDTIME vitamin E (dl, acetate) 180 mg PO DAILY [zinc ] HPI Comments Details: 84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 His main concern is neuropathy History form his initial visit- He reports short term memory issues that was noticed by his for past 10 years . He was evaluated at [facility] 10yrs [facility] - Normal. He says his memory is the same, he forgets to buy things at the store sometimes. He forgets conversations sometimes, appointments etc. He thinks it is related to his hearing loss. He writes everything down in his calender to keep track of his appointments. he is independent in all ADLS. He has trouble with learning new technical stuff like computers and phones. He has h/o sleep apnea and was on CPAP but repeat study few years ago was normal. He is on wellbutrin for 25 years for depression He was diagnosed with neuropathy- has trouble with proprioception.This affects his balance- he had a fall at home 6 years ago . he is very careful now . diagnsoed him with neuropathy. [facility] Medical History (Updated 05/24/25 @ 10:00 by Jessica Mcghee MD) Neuropathy Cognitive impairment PLMD (periodic limb movement disorder) CAD (coronary artery disease) Complex sleep apnea syndrome Wears hearing aid in both ears Personal history of nicotine dependence MARISOL on CPAP HTN (hypertension) Fracture of left distal radius Aortic aneurysm Pulmonary nodules COPD (chronic obstructive pulmonary disease) Osteoarthritis of right hip Cataracts, bilateral CAD (coronary artery disease) Hyperlipidemia Depression Surgical History Hx of vascular surgery History of heart artery stent (~1997) History of cataract surgery (~2009) History of colonoscopy Family History Mother No problems noted. Father No problems noted. 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 [facility] Physical Exam Vital Signs: Last Vital Signs Pulse 68 05/24/25 09:38 BP 120/76 05/24/25 09:38 BMI result Body Mass Index 26.4 Const General: cooperative, healthy appearing and comfortable Nutritional Appearance: average body habitus Orientation/consciousness: patient oriented x3 Neuro Other: MMSE 28/30 General: patient oriented x3 Deep tendon reflexes (DTR's): Right triceps reflex intensity grade: 1+, Left triceps reflex intensity grade: 1+, Rt Biceps (C5, C6): 1+, Left biceps reflex intensity grade: 1+, Right brachioradialis reflex intensity grade: 1+, Left brachioradialis reflex intensity grade: 1+, Right patellar reflex intensity grade: 1+ and Left patellar reflex intensity grade: 1+ Coordination: [id number] test normal Assessment & Plan Assessment & Plan (1) Cognitive impairment: Code(s): R41.89 - Other symptoms and signs involving cognitive functions and awareness Category: Medical (2) Neuropathy: Code(s): G62.9 - Polyneuropathy, unspecified Category: Medical Plan Will consider PET amyloid . Continue exercise. continue B complex and ALA Speech and hearing for cognitive eval and cognitive therapy Orders: Orders Other Ref Test - Misc Today R41.89 - Other symptoms and signs involving cognitive functions and awareness Referrals Speech and Hearing Referral R41.89 - Other symptoms and signs involving cognitive functions and awareness Medications: New alpha lipoic acid 600 mg PO DAILY 30 caps 6RF mfolate calcium-mecobalamin 25,000 mcg DFE- 2,000 mcg 1 cap PO .qd 90 caps 6RF Coding Level of Care Code Est Pt Level 4 (67688) Complex EM visit Add On G2211 Diagnoses Cognitive impairment R41.89 Neuropathy G62.9
--- OUTSIDE RECORDS SUMMARY | 2025-05-24 10:38 | XMS_ITS | Encounter Summary ---
Author Organization [employer] [facility] Address [address] [place] [address] [address] [place] [address] Care Team Providers Care Assemblyman Or Woman Name Role Phone Unavailable Primary Care Provider [...]
--- OUTSIDE RECORDS SUMMARY | 2025-05-24 10:40 | XMS_ITS | Clinical Summary ---
Author Organization [employer] [facility] Address [address] [place] [address] [address] [place] [address] Care Team Providers Care Knitting Machine Operator Name Role Phone Unavailable Primary Care Provider [...] this topic Insurance DENTAL - [employer] D[employer]AL [place] [place] [address] DENTAL - [employer] DENTAL [facility]
--- OUTSIDE RECORDS SUMMARY | 2025-05-24 10:40 | XMS_ITS | Encounter Summary ---
Author Organization [facility] Address [address] [facility] [address] [facility] [address] [facility] [address] [place] [id number] Phone Care Team Providers Care Bag Bleacher Name Role Phone Tony Greenwood MD Primary Care Provider [phone]- [phone] Reason for Referral * Consultation (Within 1 month) - Closed Specialty Diagnoses / Procedures Referred By Contac t Referred To Contact Gastroenterology Diagnoses Gastroesophageal reflux disease without esophagitis Guzmán's esophagus with dysplasia Tony Greenwood MD Phone: tel: fax: Talat rOr MD, MPH Phone: tel: fax: mailto:[email or web address] Referral ID Status Reason Start Date Expiration Date Visits Re quested Visits Authorized [id number] Closed 12/02/2017 12/02/2018 1 1 Encounter Details Date Type Department Care Team (Latest Contact Info) Description 12/02/2017 Transcribe Orders [facility] [address] [place] [address] Tony Greenwood MD [address] [place] [address] Dr Abebe Shaka LUNA [id number] Gastroesophageal reflux disease without esophagitis (Primary Dx); [...] Associated Diagnoses Order Schedule Ambulatory referral to [facility] (Consult Requests Only) Outpatient Referral Routine Gastroesophageal reflux disease without esophagitis Guzmán's esophagus with dysplasia Ordered: 12/02/2017 documented as of this encounter Visit Diagnoses Diagnosis Gastroesophageal reflux disease without esophagitis- Primary Esophageal reflux Guzmán's esophagus with dysplasia documented in this encounter Care Teams Bag Bleacher Relationship Specialty Start Date End Date Tony Greenwood MD [address] [place] [address] [place] [address] PCP - General Medical Oncology 11/07/17 documented as of this encounter Additional Source Comments The information contained in this document represents components of the legal health record. It is not the complete legal health record.[facility]
--- OUTSIDE RECORDS SUMMARY | 2025-05-24 10:40 | XMS_ITS | Clinical Summary ---
Author Organization [facility] Address [address] [place] [id number] Phone Care Team Providers Care Technology Teacher Name Role Phone Tony Greenwood MD Primary Care Provider [phone]- [phone] Social History Tobacco Use Types Packs/Day Years Used Date Smoking Tobacco: Never Assessed Sex and Gender Information Value Date Recorded Sex Assigned at Not on file Legal Sex Male 7:24 PM EST Gender Identity Not on file Sexual Orientation Not on file Plan of Treatment Not on file Medical Devices Not on file Insurance [employer] PPO MEDICARE REPLACEMENT [facility] MEDICARE REPLACEMENT [facility] MEDICARE REPLACEMENT [facility] AETNA O MEDICARE REPLACEMENT [facility] AETNA O MEDICARE REPLACEMENT [facility] AETNA O MEDICARE REPLACEMENT [facility] AETNA O MEDICARE [facility]PLACEMENT [facility] AET[employer] O MEDICARE REPLACEMENT [facility] Care Teams Technology Teacher Relationship Specialty Start Date End Date Tony Greenwood MD [address] [place] [address] [place] [address] PCP - General Medical Oncology 11/07/17 Additional Source Comments The information contained in this document represents components of the legal health record. It is not the complete legal health record.[facility]
--- OUTSIDE RECORDS SUMMARY | 2025-05-24 10:41 | XMS_ITS | Patient Health Record ---
Author Organization Tony Greenwood III, MD Address [address] [place] [address] Care Team Providers Care Liaison Officer Name Role Phone Dr. 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 FINDINGS: PULMONARY NODULES: -There are a few [...] Heavy coronary artery calcification. Electronically signed by: Toyn Lopez MD 08/04/2024 04:22 PM [facility] [place], [place] Dictated By: Tony Lopez MD Signed By: <Electronically signed by Tony Lopez MD in OV> 08/04/24 1622 DD/ 0736 TD/TT: 06/04/24 0742 Horse Doctor: [place] [address] [place] Scan Report Signed Patient: fErain Pedro MR#: [id number] : 1940 Acct:[id number] Age/Sex: 84 / M ADM Date: 06/04/24 Loc: HO.CT Attending Dr: Valdo Haley MD Ordering Physician: Valdo Haley MD Date of Service: 06/04/24 Procedure(s): CT [address] [facility] wo IV con Accession Number(s): [id number] cc: Tony Greenwood MD; Valdo Haley MD Report Number: [id number]: Total DLP = 214.00 mGy-cm EXAMINATION: CT [...] Exam submitted for review 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 FINDINGS: PULMONARY NODULES: -There are a few [...] by: Tony Lopez MD 08/04/2024 04:22 PM [facility] [place], [place] Dictated By: Tony Lopez MD Signed By: <Electronically signed by Tony Lopez MD in OV> 08/04/24 1622 DD/ 0736 TD/TT: 06/04/24 0742 Horse Doctor: Complete Blood Count Auto Di ff Reviewed date:09/28/2024 03:10:03 PM Interpretation: Performing Lab:[facility], [address] [place] [phone] Notes/Report: White Blood Count 7.4 4.8-10.8 X10*3/uL [...] NRBC Abs Auto 0.000 0.0-0.012 X10*3/uL Comprehensive Channing. Panel Fa st Reviewed date:09/28/2024 03:10:03 PM Interpretation: Performing Lab:[facility], [address] [place] [phone] Notes/Report: Sodium 146 135-145 mmol/L Potassium 5.0 [...] Panel Reviewed date:09/28/2024 03:10:03 PM Interpretation: Performing Lab:[facility], [address] [place] [phone] Notes/Report: Triglycerides 233 <150 mg/dL Desirable Triglyceride: [...] Antigen Reviewed date:09/28/2024 03:10:03 PM Interpretation: Performing Lab:[address] [address] Notes/Report: Prostate Specific Antigen 1.47 <0.05-4.0 ng/mL PSA methodology: Puente Alinity i Chemiluminescent Microparticle Immunoassay (CMIA) Vitamin B12 and Folate Reviewed date:01/15/2025 07:24:34 PM Interpretation: Performing Lab:[address] [address] Notes/Report: Vitamin B12 998 200-900 pg/mL NORMAL 200-900 PG/ML INDETERMINATE 160-199 PG/ML DEFICIENT < 160 PG/ML Folate > 20.0 > or = 4.0 ng/mL Reference Values: > or = 4.0 ng/mL < 4.0 ng/mL suggests folate deficiency Methotrexate, aminopterin and folinic acid (leucovorin) are chemotherapeutic agents whose molecular structures are similar to folate; therefore, the Mechanical Research Engineer folate assay cannot be used for patients using these drugs. TSH reflex Free T4 Reviewed date:01/15/2025 07:24:34 PM Interpretation: Performing Lab:[facility], [address] [place] [phone] Notes/Report: TSH reflex Free T4 1.06 0.32-4.0 uIU/mL MR head/brain wo con Reviewed date:01/15/2025 07:24:34 PM Interpretation: Performing Lab: Notes/Report: [address] [address] Magnetic Resonance Report Signed Patient: Efrain Pedro MR#: [id number] : 1940 Acct:[id number] Age/Sex: 84 / M ADM Date: 11/20/24 Loc: HO.MRI Attending Dr: Jessica Mcghee MD Ordering Physician: Jessica Mcghee MD Date of Service: 11/20/24 Procedure(s): MR head/brain wo con Accession Number(s): [id number] cc: Jessica Mcghee MD; Tony Greenwood MD [...] Garcia MD Signed By: <Electronically signed by Pritseh Dickinson MD in OV> 11/20/24826 DD/ 4 TD/TT: 11/20/24 08 Horse Doctor: [place] [address] Magnetic Resonance Report Signed Patient: Efrain Pedro MR#: [id number] : 1940 Acct:[id number] Age/Sex: 84 / M ADM Date: 11/20/24 Loc: HO.MRI Attending Dr: Jessica Mcghee MD Ordering Physician: Jessica Mcghee MD Date of Service: 11/20/24 Procedure(s): MR head/brain wo con Accession Number(s): [id number] cc: Jessica Mcghee MD; Tony Greenwood MD [...] OV> 11/20/[address]26 DD/ 0725 TD/TT: 11/20/24 0800 Horse Doctor: Complete Blood Count Auto Di ff Reviewed date:02/12/2025 12:53:51 PM Interpretation: Performing Lab:[facility], [address] [place] [phone] Notes/Report: White Blood Count 6.9 4.8-10.8 X10*3/uL [...] NRBC Abs Auto 0.000 0.0-0.012 X10*3/uL Comprehensive Channing. Panel Fa st Reviewed date:02/12/2025 12:53:51 PM Interpretation: Performing Lab:[address] [address] Notes/Report: Sodium 140 135-145 mmol/L Potassium 5.0 [...] Panel Reviewed date:02/12/2025 12:53:51 PM Interpretation: Performing Lab:[address] [address] Notes/Report: Triglycerides 119 <150 mg/dL Desirable Triglyceride: [...] Antigen Reviewed date:02/12/2025 12:53:51 PM Interpretation: Performing Lab:[facility], [address] [place] [phone] Notes/Report: Prostate Specific Antigen 1.36 <0.05-4.0 ng/mL PSA methodology: Puente Alinity i Chemiluminescent Microparticle Immunoassay (CMIA) Reason For Referral Reason R/O dementia Diagnosis 1 Memory loss (R41.3) Referral Organization Tony Greenwood III, MD Referring Provider First Name Tony Referring Provider Last Name Krystyna Referring Provider Speciality Internal M edicine Referred Provider Jessiac Mcghee Referred Provider Specialty Sleep Medici ne General Notes Rachel Rodriguez CMA 09/30 10:14:05 AM > Ref/demo/progress note/labs faxed to [facility] 11/04/2024 01:58:24 PM > Spoke Wanda at Sleep Medicine regarding referral for patient. Patient had called and left a message to see if they have received the referral. They did not receive the referral and would like it faxed to [phone] Referral Priority Routine Referral Appointment Date 11/16/2024 Reason leg weakness gait training muscle strengthening Diagnosis 1 Peripheral polyneuro alexis (G62.9) Diagnosis 2 Weakness of lower ex tremity, unspecified laterality (R29.898) Referral Organization Tony Greenwood III, MD Referring Provider First Name Tony Referring Provider Last Name Greenwood Referring Provider Speciality Internal M edicine Referred Provider [facility] Physical Janusz Garcia Referred Provider Specialty Physical The rapist General Notes Rachel Rodriguez JACQUIE 09/28 11:27:33 AM > ref/demo/progress note faxed to [facility] PT dept Referral Priority Routine Referral Appointment Date 10/13/2024 Medications Medication SIG (Take, Route, Frequency, Duration) Notes Start Date End Date Status buPROPion HCl ER (XL) 300 MG TAKE 1 TABLET BY MOUTH EVERY DAY IN THE MORNING FOR 90 DAYS Active Vitamin D Active Zinc Skyler-Benzyl Eie-Asutu-Mlt Active Pantoprazole Sodium 40 MG TAKE 1 [...] TABLE T BY MOUTH EVERY DAY Active Ndjjpxxw-Efhwzllgg-Mwfhxysw 0.1 % 1 drop into affected eye [...] Problem Status W/U Status Risk Notes Problem 1056981 Former smoker (Z87.891) Active confirmed He is highly motivated not to smoke. He has a strategy for prevention of relapse and maintenance of abstinence. Problem 14485687 Hyperlipidemia (E78.5) Active confirmed His lipids are currently stable and no change in her regimen was made. Problem 088107287 Overweight (E66.3) Active confirmed He has gained 7 pounds since his last visit and remains overweight. His appetite is good. We discussed ways to stabilize his weight at this level.. Problem 00151067 Depression (F32.9) Active confirmed His depression is slightly worse after the surgery. He requested that I increase the bupropion to 450 mg a day. I have done so. This is a dose. He has taken successfully in the past. Problem 85378690 Simple chronic bronchitis (J41.0) Active confirmed Problem Osteoarthritis of hip (193960969) Osteoarthritis of hip, unspecified (M16.9) Active confirmed He occasionally has pain in his right hip that requires him to stop and rest frequently. He is scheduled for surgery to replace the right hip joint on January 08, [address] Rahman at [facility]. His blood work is adequate. His electrocardiogram is unremarkable. He has had clearance from pulmonary and cardiology. He is given general medical clearance for the procedure. His risk is greater than average because of his multiple comorbidities and coronary artery disease but is acceptable. He is granted, medical clearance. Problem 44237611 Coronary artery disease (I25.10) Active confirmed He has had no angina or diaphoresis or palpitations since his last visit. His coronary artery disease is stable. He is compliant with all his medications. His lipid profile is in its target range. He was seen by cardiology, November 19, 2022 and thought to be stable. Problem 135511965 BPH (benign prostatic hyperplasia) (N40.0) Active confirmed He rises from sleep once a night to urinate. No change in his medications was needed. Problem 33870028 Essential hypertension (I10) Active confirmed His blood press ure is currently stable and no change in his regimen was made. Problem 871604806 Peripheral vascular disease (I73.9) Active confirmed He is schedu led for a duplex scan and then a visit with his vascular surgeon in March 2025. He has no new complaints of ischemia in his legs. Problem 001337853 Erectile dysfunction (N52.9) Active confirmed His current medications are effective. Problem 60487888 Memory loss (R41.3) Active confirmed He is mildly forgetful but is aware of it. It is likely vascular in origin. He remains able to care for himself at home living with his . He remains mentally competent to make decisions. Problem 92425406 Obstructive sleep apnea (G47.33) Active confirmed He reports that his pulmonary physician told him to stop using his CPAP. He is done so and not noticed any change in his medical status. He will keep me advised if this happens. Problem 728800735 Ascending aortic aneurysm (I71.2) Active confirmed He has a CT sca n of the chest and a consultation with a cardiac surgeon regularly at scheduled intervals. He has had no chest pain or dyspnea. Problem 69726864 Vitamin D deficiency (E55.9) Active confirmed We discussed hi s vitamin D supplementation. I strongly urged him to continue it. 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 It is asymptomatic. Problem 283980611 History of skin cancer (Z85.828) Active confirmed No new skin lesions were noted on today's examination. Surveillance will continue. Problem 76799206 Hoarseness (R49.0) Active confirmed His voice was m uch more normal today. The urinalysis and throat physician has increased the pantoprazole and he is doing well. Problem Osteoarthritis of knee (500753580) Osteoarthritis of knees, bilateral (M17.0) Active confirmed There was mild crepitus of his knees. He has occasional knee pain but is able to conduct all of the activities of daily life. 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 Problem 492314618 Chronic GERD (K21.9) Active confirmed His chronic ref lux symptoms are well controlled with vulg-rdv-qvikzhw medication. Problem 37216727 Peripheral polyneuropathy (G62.9) Active confirmed Vital Signs Heart Rate 67 /min 03/29/2025 Temperature 97.2 degrees Fahrenheit 03/29/2025 Blood pressure diastolic 58 mm Hg 03/29/2025 Height 76 in 03/29/2025 Blood pressure systolic 124 mm Hg 03/29/2025 Weight 213 lbs 03/29/2025 BMI 25.92 kg/m2 03/29/2025 Encounters Encounter Location Date Provider Diagnosis Tony Greenwood III, MD [address] [place] [address] [place] [phone] 09/28/2024 Tony Greenwood Coronary artery dise ase [...] Former smoker Z87.891 Tony Greenwood III, MD [address] [place] [address] [place] [address] 02/15/2025 Tony Greenwood Hyperlipidemia E78.5 ; Popliteal [...] aortic arch Q25.47 Tony Greenwood III, MD [address] [place] [address] [place] [phone] 03/29/2025 Tony Greenwood 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 [...] Peripheral polyneuropathy G62.9 Tony Greenwood III, MD [address] [place] [address] [place] [phone] 01/08/2025 Tony Greenwood III, MD [address] [place] [address] [place] [phone] 01/18/2025 Tony Greenwood III, MD [address] [place] [address] [place] [address] 01/18/2025 Tony Greenwood III, MD [address] [place] [address] [place] [address] 01/18/2025 Tony Greenwood III, MD [address] [place] [address] [place] [phone] 01/18/2025 Tony Greenwood III, MD [address] [place] [address] [place] [address] 02/15/2025 Tony Greenwood Assessments Encounter Date Diagnosis [...] chronic reflux symptoms are well controlled with wpok-xis-hjnjxjr medication. 02/15/2025 Coronary artery disease (ICD-10 - [...] January 08, [address] Rahman at [facility]. His blood work is adequate. His [...] C) 09/20/2023 PROFILE, FASTING (COMPREHENSIVE METABOLI C) 03/29/2025 PROFILE, FASTING (COMPREHENSIVE METABOLI C) 05/21/2022 PROFILE, RANDOM (COMPREHENSIVE METABOLIC ) 08/10/2022 PROFILE, RANDOM (COMPREHENSIVE METABOLIC ) 08/19/2019 HEMOGLOBIN A1C (GLYCOHEMOGLOBIN) 021 LIPID PANEL 05/21/2022 LIPID PANEL 12/18/2022 LIPID PANEL 05/18/2020 LIPID PANEL 06/28/2017 LIPID PANEL 09/26/2020 LIPID PANEL 10/05/2022 LIPID PANEL 03/04/2020 LIPID PANEL 08/10/2022 LIPID PANEL 08/19/2019 PSA, TOTAL 08/10/2022 PSA, TOTAL 03/29/2025 PSA, TOTAL 08/19/2019 PSA, TOTAL 03/28/2021 PSA, TOTAL 05/21/2022 PSA, TOTAL 12/18/2022 PSA, TOTAL 09/28/2024 PSA, TOTAL 05/18/2020 PSA, TOTAL 09/26/2020 PSA, TOTAL 12/27/2023 PSA, TOTAL 09/20/2023 CBC w DIFF 02/15/2025 CBC w DIFF 08/10/2022 CBC w DIFF 03/29/2025 CBC w DIFF 08/19/2019 CBC w DIFF 03/28/2021 CBC w DIFF 05/21/2022 CBC w DIFF 12/18/2022 CBC w DIFF 06/28/2017 CBC w DIFF 09/28/2024 CBC w DIFF 05/18/2020 CBC w DIFF 09/26/2020 CBC w DIFF 10/05/2022 CBC w DIFF 03/04/2020 SED RATE (ESR) [...] Provider Name:Tony Gilletterne , 06/28/2025 10:00:00 AM, [address] [place] [address] [address] [place], [place] [address], [address], Provider Name:Tony Greenwood , 09/29/2025 03:00:00 PM, [address] [place], [place] [address], [address], Insurance Providers Payer Name Payer Address Payer Phone Subscriber Number Group Number Insured Name Patient Relationship to Insured Coverage Start Date Coverage End Date [employer] Medicare [address] [facility] [place] [address] [id number] Efrain Pedro Self - patient is the insured 2 [employer] [address] [place] [address] [id number] Efrain Pedro Self - patient is the insured Medical (General) History Medical History History ICD Code left popliteal artery aneurysm, repaired depression hyperlipidemia CAD- 1997 non-eluting stent RCA, [place] caracts scc right eyelid and forehead former smoker fractured metatarsal right-sided aortic arch 4.5 cm ascending aortic aneurysm diastasis rectus Surgical History Surgery Date(Month/Year) Right popliteal aneurism stent 06/2024 Right hip surgery 12/2022 left cheek lesion removal [facility] 2021 repair popliteal aneurysm 01/2004 colonoscopy,negative 09/2009 Hospitalization History Reason Date(Month/Year) stent placement 2017
== END 2025-05-24 10:11 | disposition home or self-care (01) ==
LOC: HO.HSMS 09:31
PROVIDERS: PCP Internal Medicine Medical Oncology; Visit Provider Psychiatry & Neurology Neurology
DX: R41.89 Other symptoms and signs involving cognitive functions and awareness (principal); G62.9 Polyneuropathy, unspecified
CPT/HCPCS: 99214; G2211

== ENCOUNTER → 2025-05-24 09:30 | Outpatient (BNVA) | payer MEDICARE, OTHER, SELFPAY | PROVIDERS: PCP Internal Medicine Medical Oncology; Visit Provider Psychiatry & Neurology Neurology | DX: G62.9 Polyneuropathy, unspecified (principal); R41.89 Other symptoms and signs involving cognitive functions and awareness | CPT/HCPCS: 99212 ==

== ENCOUNTER 2025-05-31 09:41 | Outpatient (RCR) | payer MEDICARE, OTHER, SELFPAY ==
--- NOTE | 2025-06-03 09:07 | MHC.SP.ADU ---
Referring provider: Jessica Mcghee MD Reason for Referral: Cognitive Evaluation Type of Treatment: 00879 Standardized Cognitive Performance Testing, per hour Date of Plan of Treatment: 05/31/25 Onset of Symptoms/Illness: 05/24/25 Date Treatment Started: 05/31/25 Medical Diagnosis: R41.89 Other symptoms and signs involving cognitive functioning and awareness Primary Speech Language Diagnosis: I69.911 Memory deficit History Latesha Efrain Pedro is an 85 year old male who was referred to [facility] from [facility] for an Adult Speech Language Cognition evaluation. Per referral note: ?He says his memory is the same, he forgets to buy things at the store sometimes. He forgets conversations sometimes, appointments, etc. He thinks it's related to his hearing loss. He writes everything down in his calendar to keep track of his appointments.? Dr. Pedro did have an [facility]; this was a very extensive evaluation and Dr. Pedro was tested using multiple standardized tests. Dr. Pedro tested within normal limits for this evaluation. 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 He is very knowledgeable and cognizant of his deficits. He contributes his memory loss to hearing loss as well as anxiety. Dr. Pedro lives in a private residence with his . He is independent in all ADLs. Dr. Pedro is very active in his community and is a member of his latter day?s choir. He reports the biggest difficulties are with short-term memory loss. Medical History: Acid Reflux COPD Hearing Loss Heart Attack Neurological Conditions e.g.: Keshawn's, Parkinson's Voice Changes Anxiety/Depression Recent Hospitalizations: No Respiratory Needs: Room Air Patient Orientation: Alert & Oriented x 4 Social History: Employment Status: Retired Highest level of education obtained: Completed Doctorate Current Living Situation: Dr. Pedro currently resides in a private residence with his Assistive Devices in use: Cane Glasses/Contacts Hearing Aids Comment: Cane is sometimes used due to neuropathy. Other Therapies Seen in Current Calendar Year: Occupational Therapy, Physical Therapy Reported Speech, Language, Cognition difficulties: Memory Comments: Dr. Pedro reports short-term memory difficulties. Quality of Life: Dr. Pedro reports no significant changes in quality of life due to noticed cognitive difficulties. Patient Stated Goal of Speech-Language Therapy: Determine cognitive functioning status; Dr. Pedro questioning cognitive decline. Assessment Tests of Cognition: RBANS Clinical Impression: Intact Observations: IMMEDIATE MEMORY: This domain assesses the individual?s ?ability to remember information immediately after it is presented.? For the ?List Learning? task, Dr. Pedro was read a list of 10 words and asked to repeat back as many words as he could. He then was read the same list four times. On the first trial, Dr. Pedro was able to immediately recall 3/10 words. In the second trial, he was able to recall 5/10 words. On the third trial, he was able to recall 6/10 words. In the fourth and last trial, he was able to recall 8/[address] Pedro was noted to repeat words that he didn?t say on the previous trial vs directions of ?repeat back as many words as you can, even if you have already said them.? Once understanding, noted score improvement.. On the ?Story Memory? task, a brief story is read by the examiner two times, with the subject required to repeat back as much as they remember each time. Dr. Pedro initially recalled 8/12 items. He greatly improved on the second trial and was able to recall 10/12 items. The scores on ?List Learning? fell into the Average range and the scores on the ?Story Memory? fell into the High Average range. Both scores, cumulatively on the composite score for Immediate Memory were Average, indicating an area of no difficulties. List Learning Scaled Score: 9 Interpretation: Average Story Memory Scaled Score: 12 Interpretation: High Average Immediate Memory Index Score: 103 Interpretation: Average VISUOSPATIAL/CONSTRUCTIONAL: This domain assesses the individual?s ?ability to perceive spatial relations and to construct a spatially accurate copy of a drawing.? During the Figure Copy task, Dr. Pedro was given an example of a specific figure to copy onto a piece of paper. Individuals are scored on both the drawing accuracy and placement of [address] Pedro?s drawing was fairly accurate to the example drawing; mild distortions and misplacements noted, demonstrating a Low Average score. Dr. Pedro demonstrated excellent accuracy on the Line Orientation task, in which an individual is asked to transpose two line segments of an angle to a compass diagram above it, in order to label each segment. His score fell into the High Average range. Both scores, cumulatively on the composite score for Visuospatial/Constructional were Average, indicating an area of no difficulties. Figure Copy Scaled Score: 6 Interpretation: Low Average Line Orientation Percentile Group: greater than of equal to 75 Interpretation: High Average Visuospatial/Constructional Index Score: 102 Interpretation: Average LANGUAGE: This domain assesses the individual?s ?ability to respond verbally to either naming or retrieving learned material.? Dr. Pedro was asked to label various line drawings in responsive naming tasks and then asked to name as many animals found at a zoo as they could in one minute in a Semantic Fluency task. Dr. Pedro accurately and rapidly named 10 out of 10 drawings, demonstrating a High Average score, he labeled 25 animals in one minute, demonstrating a Very Superior on this subtest. Scores combined resulted in a Superior score for the Language Domain. Picture Naming Percentile Group: greater than of equal to 75 Interpretation: High Average Semantic Fluency Scaled Score: 17 Interpretation: Very Superior Language Index Score: 129 Interpretation: Superior ATTENTION: This domain assesses the individual?s ?capacity to remember and manipulate both visually and orally presented information in short-term memory storage.? Dr. Pedro was read aloud strings of numbers of varying lengths then asked to recall the numbers. Dr. Pedro accurately recalled strings of numbers up to 7 digits with no difficulties, but then began to scramble with 8 digits, resulting in a High Average score. In the coding subtest, Dr. Pedro was asked to write numbers to their matching symbols as quickly and efficiently as possible within [address] Pedro worked semi-quickly and semi-accurately through this test marking 27 symbols in allotted time, which yielded a Low Average score. Dr. Pedro initially coded 35 symbols but had some errors which deducted from the score. Note difficulties with similar symbols of different orientation. For the overall ?Attention? domain score, Dr. Pedro fell in the Average range. Digit Span Scaled Score: 13 Interpretation: High Average Coding Scaled Score: 7 Interpretation: Low Average Attention Index Score: 100 Interpretation: Average DELAYED MEMORY: This domain assesses the individual?s ?anterograde memory capacity.? ?Low scores indicate difficulties with recognition and retrieval of information from long-term memory stores.? Dr. Pedro was initially able to recall 6 out of 10 words from the wordlist that was presented earlier in the test. When given a recognition task regarding words on the list (i.e. ?Was apple on the list??) Dr. Pedro answered these yes/no questions with accuracy, indicating that he was able to recall items when given this level of prompt. Note two errors on the list recognition task; 18/20. He demonstrated within a High Average range for List Recall and a Low Average range for List Recognition. On recalling the story that was read to Dr. Pedro at the beginning of the assessment, he was able to recall 7 out of 12 items. Placing him in an Average range. Finally, when asked to recall the figure he radha at the beginning of the test, Dr. ePdro attempted with great motivation. Dr. Pedro had mild distortions and was missing half of the items from the figure. This placed Dr. Pedro in the Low Average range for Figure Recall. Overall for the Delayed Memory? domain, Dr. Pedro fell in the Low Average range, indicating that this may be an area of struggle for Dr. Pedro. List Recall Percentile Group: greater than of equal to 75 Interpretation: High Average List Recognition Percentile Group: 17-25 Interpretation: Low Average Story Recall Scaled Score: 9 Interpretation: Average Figure Recall Scaled Score: 7 Interpretation: Low Average Delayed Memory Index Score: 88 Interpretation: Low Average Summary/Conclusion Dr. Pedro was motivated to complete all subtests and participate in the evaluation. He provided extensive information and answered all questions during the evaluation. Dr. Pedro tested Superior in the Language domain, tested Average in the domains of Immediate Memory, Visuospatial/Constructional, and Attention, and lastly, tested Low Average in the domain of Delayed Memory. 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 Outpatient speech therapy not recommended at this time. Recommendation for Speech Therapy: NA:Typical Evaluation Patient Education: Completed: No Patient/Caregiver Education: Comments/Barriers to Learning: Left voicemail for Dr. Pedro to go over results and recommendations via telephone. Dynamics Ax Consultant Clinican/Clinical Fellow: No Supervisory Statement: No Speech Language Pathologist: Bel Santillan M.A., CCC-FEED IN WORKER
== END 2025-06-07 16:04 | disposition home or self-care (01) ==
LOC: HO.SH 09:41
PROVIDERS: PCP Internal Medicine Medical Oncology; Visit Provider Psychiatry & Neurology Neurology
DX: R41.89 Other symptoms and signs involving cognitive functions and awareness (principal)
CPT/HCPCS: 96125